=== PATIENT | female | born 1945 | race Caucasian/White ===

== ENCOUNTER 2016-10-12 11:39 | Inpatient (IN) | payer MEDICARE ==
[~2016-10-12] VITALS: Ht 162.6 cm; Wt 70.5 kg
[2016-10-12] VITALS (32 sets, daily range): BP systolic 67–192; BP diastolic 46–113; PULSE 91–137; RESP 15–22; TEMP 97.3–98.4; O2SAT 97–100
[~2016-10-12 11:39] MED LIST: ALBU8I INH; ASPI81TA82 PO; ATOR40TA PO; CEPH500C3 PO; CILO100T PO; CYMB30CA PO; GABA300C3 PO; GLIM4 PO; HYDR-2768 PO; LANSO15 PO; LORTA5 PO; OXYB5TAB PO; PLAV75TA PO; TRAD5TAB PO; ULTR50TA PO
[2016-10-12] MEDS ORDERED: PROPOFOL 1000 MG/100 ML INJ 100 ML ONE (11:50)
--- NOTE | 2016-10-12 11:56 | PD ---
HPI Chief Complaint: Respiratory Distress Time Seen by Provider: 11:47 Travel History International Travel<30 days: No Contact w/Intl Traveler<30days: No Traveled to known affect area: No History of Present Illness HPI The patient is a 71-year-old female who presents to the emergency department via EMS for respiratory arrest. EMS states the patient was at the [facility] and [place], [place], when she developed shortness of breath. According to EMS the patient became obviously short of breath in the pool, while performing water aerobics. The patient was pulled from the pool, by the [employer], and there was no evidence of drowning according to EMS report. When EMS arrived the patient was agonal, not responding to questioning, and intubated in the field with a 7.0 endotracheal tube. The patient was noted to have copious secretions during the intubation and required significant suctioning according to EMS. The patient did receive etomidate 20 mg and Ativan in the field for intubation. They also administered Lasix 80 mg intravenously prior to arrival. No further information is obtainable. PFSH Past Medical History Cancer: No Cardiovascular Problems: No Chest Pain: No COPD: Yes Diabetes: Yes Gastrointestinal Disorders: No Glaucoma: No Genitourinary: No Hepatitis: No Hiatal Hernia: No Hypertension: Yes Immune Disorder: No Musculoskeletal: No Neurologic: No Reproductive: No Respiratory: Yes (COPD) Integumentary: Yes (ULCERS R FOOT) Thyroid Disease: No Past Surgical History Cardiac Surgery: No Endocrine Surgery: No Genitourinary Surgery: No Gynecologic Surgery: Yes (3 C SECTIONS) Thoracic Surgery: No Social History Alcohol Use: No Tobacco Use: No Allergies-Medications (Allergen,Severity, Reaction): Coded Allergies: Morphine (Verified Allergy, Severe, 12/30/15) SSRI-Serotonin Reuptake Inhib (Verified Allergy, Severe, 12/30/15) Reported Meds & Prescriptions Reported Meds & Active Scripts Active Reported Tobramycin-Dexamethasone Opth Drops 0.3-0.1 % Susp 1 Drop EACH EYE TID Bactrim DS (Sulfamethoxazole-Trimethoprim) 800-160 Mg Tab 1 Tab PO DAILY Toviaz ER (Fesoterodine Fumarate) 8 Mg Jen 8 Mg PO DAILY Tradjenta (Linagliptin) 5 Mg Tab 5 Mg PO DAILY Potassium Chloride ER (Potassium Chloride) 10 Meq Cap 10 Meq PO DAILY PRN Ditropan (Oxybutynin Chloride) 5 Mg Tab 5 Mg PO DAILY Metformin (Metformin HCl) 500 Mg Tab 500 Mg PO BID With meals Lansoprazole 30 Mg Capdr 30 Mg PO BID Glimepiride 4 Mg Tab 4 Mg PO BIDAC Gabapentin 300 Mg Cap 300 Mg PO BID Lasix (Furosemide) 20 Mg Tab 20 Mg PO DAILY PRN Flonase Allergy Relief Nasal [place] (Fluticasone Nasal [place]) 50 Mcg/Act [place] 1- 2 [place] EACH NARE BID Lexapro (Escitalopram Oxalate) 5 Mg Tab 5 Mg PO DAILY Plavix (Clopidogrel Bisulfate) 75 Mg Tab 75 Mg PO DAILY Atorvastatin (Atorvastatin Calcium) 40 Mg Tab 40 Mg PO HS Aspirin Adult Low Strength (Aspirin) 81 Mg Tabdr 81 Mg PO DAILY Abilify (Aripiprazole) 2 Mg Tab 2 Mg PO DAILY Review of Systems ROS Limitations: Intubated Physical Exam Exam Limitations: Clinical Condition Narrative GENERAL: 71-year-old female who appears her stated age and is intubated. Patient is breathing above the ventilator, grimaces, but is not moving any medications. SKIN: Cool to the touch. HEAD: Atraumatic. Normocephalic. EYES: Pupils equal and round. Pupils are 2 mm bilateral and reactive. ENT: Endotracheal tube in place. NECK: Trachea midline. No JVD. CARDIOVASCULAR: Regular, tachycardic with a heart rate of 135. RESPIRATORY: Intubated, ventilated via ventilator, breathing above the ventilator. GASTROINTESTINAL: Abdomen soft, well-healed scar inferior to the umbilicus in the midline. MUSCULOSKELETAL: Cool to the touch. Left lower extremity slightly shorter than the right, but able to passively flex the hip and knee on both sides. Positive bilateral lower extremity edema from the knees inferiorly are with chronic venous stasis changes. Mild deformity to the feet bilaterally. NEUROLOGICAL: Intubated, grimacing, but does not spontaneously open eyes. PSYCHIATRIC: Unable to obtain. Data Data Last Documented VS Vital Signs Date Time Temp Pulse Resp B/P Pulse Ox O2 Delivery O2 Flow Rate FiO2 10/12/16 13:30 109 20 92/53 97 Auto-Vent 100 10/12/16 11:41 98.4 10/12/16 11:41 15 Orders Complete Blood Count With Diff (10/12/16 11:47) Comprehensive Metabolic Panel (10/12/16 11:47) B-Type Natriuretic Peptide (10/12/16 11:47) Act Partial Throm Time (Ptt) (10/12/16 11:47) Prothrombin Time / Inr (Pt) (10/12/16 11:47) Magnesium (Mg) (10/12/16 11:47) Ckmb (Isoenzyme) Profile (10/12/16 11:47) Troponin I (10/12/16 11:47) Arterial Blood Gas (Abg) (10/12/16 11:47) Blood Culture (10/12/16 11:47) Iv Access Insert/Monitor (10/12/16 11:47) Electrocardiogram (10/12/16 11:47) Ecg Monitoring (10/12/16 11:47) Oximetry (10/12/16 11:47) Oxygen Administration (10/12/16 11:47) Chest, Single Ap (10/12/16 11:47) Ct Pulmonary Angiogram (10/12/16 11:47) Sodium Chloride 0.9% Flush (Ns Flush) (10/12/16 12:00) Ct Brain W/O Iv Contrast(Rout) (10/12/16 ) Propofol 1000 Mg/100 Ml Inj (Diprivan 10 (10/12/16 12:00) ^ Infusion (10/12/16 11:50) RASS (10/12/16 11:50) Neurological Rass Scale TEODORA.Q2H (10/12/16 11:50) Propofol 1000 Mg/100 Ml Inj (Diprivan 10 (10/12/16 11:50) Urinary Catheter Insert/Apply (10/12/16 11:50) Lactic Acid (10/12/16 12:05) Sodium Chlor 0.9% 1000 Ml Inj (Ns 1000 M (10/12/16 12:30) Sodium Chlor 0.9% 1000 Ml Inj (Ns 1000 M (10/12/16 12:30) Cefepime Inj (Maxipime Inj) (10/12/16 12:30) Azithromycin Inj (Zithromax Inj) (10/12/16 12:30) Midazolam Inj (Versed Inj) (10/12/16 13:00) Midazolam Inj (Versed Inj) (10/12/16 12:53) CKMB (10/12/16 11:55) CKMB% (10/12/16 11:55) Midazolam Inj (Versed Inj) (10/12/16 13:30) Neurological Rass Scale Q30MX2,Q2HX4,Q4H (10/12/16 13:26) Neurological Rass Scale Q30MX2,Q2HX4,Q4H (10/12/16 13:26) Fentanyl Drip (Fentanyl Drip) (10/12/16 13:30) Admit Order (Ed Use Only) (10/12/16 13:44) Midazolam Inj (Versed Inj) (10/12/16 13:45) Labs Laboratory Tests Test 10/12/16 10/12/16 11:55 12:00 White Blood Count 15.7 TH/MM3 Red Blood Count 5.18 MIL/MM3 Hemoglobin 14.2 GM/DL Hematocrit 45.5 % Mean Corpuscular Volume 88.0 FL Mean Corpuscular Hemoglobin 27.5 PG Mean Corpuscular Hemoglobin 31.3 % Concent Red Cell Distribution Width 15.3 % Platelet Count 439 TH/MM3 Mean Platelet Volume 8.9 FL Neutrophils (%) (Auto) 53.8 % Lymphocytes (%) (Auto) 38.6 % Monocytes (%) (Auto) 6.1 % Eosinophils (%) (Auto) 1.2 % Basophils (%) (Auto) 0.3 % Neutrophils # (Auto) 8.4 TH/MM3 Lymphocytes # (Auto) 6.0 TH/MM3 Monocytes # (Auto) 1.0 TH/MM3 Eosinophils # (Auto) 0.2 TH/MM3 Basophils # (Auto) 0.0 TH/MM3 CBC Comment AUTO DIFF Differential Total Cells 100 Counted Neutrophils % (Manual) 50 % Band Neutrophils % 1 % Lymphocytes % 42 % Monocytes % 5 % Eosinophils % 1 % Neutrophils # (Manual) 8.2 TH/MM3 Myelocytes 1 % Differential Comment FINAL DIFF MANUAL Platelet Estimate HIGH Platelet Morphology Comment NORMAL Prothrombin Time 10.5 SEC Prothromb Time International 1.0 RATIO Ratio Activated Partial 23.7 SEC Thromboplast Time Sodium Level 139 MEQ/L Potassium Level 2.9 MEQ/L Chloride Level 104 MEQ/L Carbon Dioxide Level 20.6 MEQ/L Anion Gap 14 MEQ/L Blood Urea Nitrogen 18 MG/DL Creatinine 0.96 MG/DL Estimat Glomerular Filtration 57 ML/MIN Rate Random Glucose 347 MG/DL Calcium Level 6.8 MG/DL Protein Corrected Calcium 7.3 MG/DL Magnesium Level 1.4 MG/DL Total Bilirubin 0.2 MG/DL Aspartate Amino Transf 18 U/L (AST/SGOT) Alanine Aminotransferase 19 U/L (ALT/SGPT) Alkaline Phosphatase 133 U/L Total Creatine Kinase 139 U/L Creatine Kinase MB 3.5 NG/ML Troponin I 0.03 NG/ML B-Type Natriuretic Peptide 81 PG/ML Total Protein 6.1 GM/DL Albumin 2.6 GM/DL Lactic Acid Level 8.1 mmol/L MDM Medical Decision Making Medical Screen Exam Complete: Yes Emergency Medical Condition: Yes Medical Record Reviewed: Yes Interpretation(s) EKG reveals sinus tachycardia with a heart rate of 136. Short TX interval of 117 ms. Nonspecific T-wave changes, inverted T waves noted. Last Impressions Chest X-Ray 10/12/16 1147 Signed Impressions: Service Date/Time: Wednesday, October 12, 2016 12:12 - CONCLUSION: Markedly abnormal chest with moderate airspace disease on the right. Hemorrhage vs aspiration. Nasogastric tube and ET tube in good position. Gregory Nava MD FACR Head CT 10/12/16 0000 Signed Impressions: Service Date/Time: Wednesday, October 12, 2016 13:44 - CONCLUSION: Negative for an acute process Gregory Nava MD FACR CT pulmonary angiogram reveals patchy airspace disease in both lungs much worse on the right than the left, suspicious for an inflammatory process. There is no evidence for central pulmonary emboli. Laboratory Tests Test 10/12/16 10/12/16 11:55 12:00 White Blood Count 15.7 TH/MM3 Red Blood Count 5.18 MIL/MM3 Hemoglobin 14.2 GM/DL Hematocrit 45.5 % Mean Corpuscular Volume 88.0 FL Mean Corpuscular Hemoglobin 27.5 PG Mean Corpuscular Hemoglobin 31.3 % Concent Red Cell Distribution Width 15.3 % Platelet Count 439 TH/MM3 Mean Platelet Volume 8.9 FL Neutrophils (%) (Auto) 53.8 % Lymphocytes (%) (Auto) 38.6 % Monocytes (%) (Auto) 6.1 % Eosinophils (%) (Auto) 1.2 % Basophils (%) (Auto) 0.3 % Neutrophils # (Auto) 8.4 TH/MM3 Lymphocytes # (Auto) 6.0 TH/MM3 Monocytes # (Auto) 1.0 TH/MM3 Eosinophils # (Auto) 0.2 TH/MM3 Basophils # (Auto) 0.0 TH/MM3 CBC Comment AUTO DIFF Differential Total Cells 100 Counted Neutrophils % (Manual) 50 % Band Neutrophils % 1 % Lymphocytes % 42 % Monocytes % 5 % Eosinophils % 1 % Neutrophils # (Manual) 8.2 TH/MM3 Myelocytes 1 % Differential Comment FINAL DIFF MANUAL Platelet Estimate HIGH Platelet Morphology Comment NORMAL Prothrombin Time 10.5 SEC Prothromb Time International 1.0 RATIO Ratio Activated Partial 23.7 SEC Thromboplast Time Sodium Level 139 MEQ/L Potassium Level 2.9 MEQ/L Chloride Level 104 MEQ/L Carbon Dioxide Level 20.6 MEQ/L Anion Gap 14 MEQ/L Blood Urea Nitrogen 18 MG/DL Creatinine 0.96 MG/DL Estimat Glomerular Filtration 57 ML/MIN Rate Random Glucose 347 MG/DL Calcium Level 6.8 MG/DL Protein Corrected Calcium 7.3 MG/DL Magnesium Level 1.4 MG/DL Total Bilirubin 0.2 MG/DL Aspartate Amino Transf 18 U/L (AST/SGOT) Alanine Aminotransferase 19 U/L (ALT/SGPT) Alkaline Phosphatase 133 U/L Total Creatine Kinase 139 U/L Creatine Kinase MB 3.5 NG/ML Troponin I 0.03 NG/ML B-Type Natriuretic Peptide 81 PG/ML Total Protein 6.1 GM/DL Albumin 2.6 GM/DL Lactic Acid Level 8.1 mmol/L Differential Diagnosis Differential diagnosis includes respiratory arrest, congestive heart failure, COPD exacerbation, reactive airway disease, pulmonary embolism, pleural effusion , pericardial effusion, STEMI. Narrative Course IV was established, labs are drawn and sent, and the patient was placed on cardiac telemetry monitoring and continuous pulse oximetry monitoring. Chest x- ray was obtained. CT pulmonary angiogram and CT the brain were obtained. The patient received Lasix, etomidate, and Ativan by EMS prior to arrival. The patient's initial blood glucose was greater than 400, according to EMS, therefore, bedside Accu check was obtained. Mendoza catheter was placed. The patient was placed on propofol for sedation. The patient's blood pressure did fall to systolic 80 after propofol was started, therefore, propofol was decreased and the patient was administered 1 L normal saline intravenously as a bolus. The patient was given a total of 2 L, however, continued to be hypotensive after an initial return to normal blood pressure, she once again had hypotension. CT pulmonary angiogram revealed no PE, however, had patchy airspace disease worse on the right than left. The patient was administered cefepime and Zithromax. CT the brain was negative. I discussed the patient the on-call wood cabinetmaker who agrees with admission. A central line and right radial arterial line were placed because the patient continued to have hypotension. The patient was placed on vasopressors per the wood cabinetmaker recommendations. The patient will be admitted to the intensive care unit. Critical Care Narrative Aggregate critical care time was 45 minutes. Time to perform other separately billable procedures was not included in the critical care time. My time did not include minutes spent treating any other patients simultaneously or on activities that did not directly contribute to the patient's treatment. The services I provided to this patient were to treat and/or prevent clinically significant deterioration that could result in: Anoxia, hypoxia, arrhythmia, aspiration, sepsis, . I provided critical care services requiring my management, as noted below: Chart data review, documentation time, medication orders and management, vital sign assessments/reviewing monitor data, ordering and reviewing lab tests, ordering and interpreting/reviewing x-rays and diagnostic studies, care of the patient and discussion of the patient with the admitting physicians. Procedures Procedure Narrative CENTRAL VENOUS LINE: The site was prepped with Betadine and sterilely draped. It was infiltrated with 1% lidocaine plain. The deep vein was cannulated using normal Seldinger technique. A triple lumen central line was placed in the right internal jugular site and secured with simple interrupted suture. The site was sterilely dressed. The patient tolerated the procedure well. An arterial line was placed in the right radial artery under ultrasound guidance using a linear probe via Seldinger technique. There was good pulsatile blood return in the arterial line foot easily. There was no obvious complications and the patient tolerated the procedure without difficulty. Sepsis Criteria SIRS Criteria (2 or more): Heart rate over 90, RR > 20 or PaCO2 < 32, WBC > 10497, < 4000 or > 10% bands Severe Sepsis (+one): Hypotension, Lactate >2 Septic Shock Criteria: Lactic acid >=4 Criteria Outcome: Meets septic shock criteria Physician Communication Physician Communication I discussed the patient with the wood cabinetmaker who agrees with admission. Diagnosis Primary Impression: Respiratory distress Additional Impressions: Pneumonia Qualified Code: J18.9 - Pneumonia of both lungs due to infectious organism, unspecified part of lung Hypoxia Sepsis Qualified Code: A41.9 - Sepsis, due to unspecified organism Admitting Information Admitting Physician Requests: Admit Condition: Critical Ramin Loza MD Oct 12, 2016 11:56
[2016-10-12] MEDS ORDERED: SODIUM CHLORIDE 0.9% FLUSH 5 ML FLUSH IVF PRN (12:00)
[2016-10-12] MEDS ORDERED: PROPOFOL 1000 MG/100 ML INJ 100 ML IV SCH (12:00)
[2016-10-12 12:27] LABS: AUTOMATED NEUTROPHIL # 8.4 TH/MM3 (1.8-7.7); BASOPHIL % 0.3 % (0.0-2.0); EOSINOPHIL # 0.2 TH/MM3 (0-0.4); EOSINOPHIL % 1.2 % (0.0-4.0); HEMATOCRIT 45.5 % (35.0-46.0); LYMPH % 38.6 % (9.0-44.0); MEAN CORPUSCULAR HEMOGLOBIN 27.5 PG (27.0-34.0); MEAN CORPUSCULAR HGB CONC 31.3 % (32.0-36.0); MONO % 6.1 % (0.0-8.0); NEUT % 53.8 % (16.0-70.0); PLATELET COUNT 439 TH/MM3 (150-450); RED BLOOD COUNT 5.18 MIL/MM3 (4.00-5.30); RED CELL DISTRIBUTION WIDTH 15.3 % (11.6-17.2); WHITE BLOOD COUNT 15.7 TH/MM3 (4.0-11.0)
[2016-10-12 12:29] LABS: HEMO FLAGS AUTO DIFF
[2016-10-12] MEDS ORDERED: SODIUM CHLOR 0.9% 1000 ML INJ 1,000 ML IV ONE ×3 (12:30→15:15)
[2016-10-12] MEDS ORDERED: AZITHROMYCIN INJ 500 MG in SODIUM CHLOR 0.9% 250 ML INJ 250 ML IV ONE (12:30)
[2016-10-12] MEDS ORDERED: CEFEPIME INJ 2,000 MG in SODIUM CHLORIDE 0.9% INJ 100 ML IV ONE (12:30)
[2016-10-12] MEDS ORDERED: GLIM4TAB PO (12:33)
[2016-10-12] MEDS ORDERED: ATOR40TA16 PO (12:33)
[2016-10-12] MEDS ORDERED: PLAV75TA29 PO (12:33)
[2016-10-12] MEDS ORDERED: ASPI1TAB91 PO (12:33)
[2016-10-12] MEDS ORDERED: OXYB5TAB10 PO (12:33)
[2016-10-12] MEDS ORDERED: METF500T PO (12:33)
[2016-10-12] MEDS ORDERED: LEXA5TAB PO (12:33)
[2016-10-12] MEDS ORDERED: ABIL2TAB2 PO (12:33)
[2016-10-12] MEDS ORDERED: LANS30CA PO (12:33)
[2016-10-12] MEDS ORDERED: FLUT1SPR5 EACH NARE (12:33)
[2016-10-12] MEDS ORDERED: GABA300C5 PO (12:33)
[2016-10-12] MEDS ORDERED: FURO1TAB62 PO (12:33)
[2016-10-12] MEDS ORDERED: TOBRSUS9 EACH EYE (12:34)
[2016-10-12] MEDS ORDERED: TOVI8TAB PO (12:34)
[2016-10-12] MEDS ORDERED: POTA10CA PO (12:34)
[2016-10-12] MEDS ORDERED: TRAD5TAB PO (12:34)
[2016-10-12] MEDS ORDERED: BACT800T5 PO (12:34)
[2016-10-12 12:37] LABS: APTT (PATIENT) 23.7 SEC (24.3-30.1); PROTHROMBIN TIME - PATIENT 10.5 SEC (9.8-11.6)
[2016-10-12] MEDS ORDERED: MIDAZOLAM HCL 5 MG/ML VIAL (1 ML) ONE ×2 (12:53→14:31)
[2016-10-12 12:58] LABS: ALKALINE PHOSPHATASE 133 U/L (45-117); ALT (GPT) 19 U/L (10-53); ANION GAP 14 MEQ/L (5-15); BICARBONATE 20.6 MEQ/L (21.0-32.0); BLOOD UREA NITROGEN 18 MG/DL (7-18); CHLORIDE 104 MEQ/L (98-107); CREATINE KINASE 139 U/L (26-192); GLOMERULAR FILTRATION RATE 57 ML/MIN (>89); SODIUM (NA) 139 MEQ/L (136-145); TOTAL BILIRUBIN ADULT 0.2 MG/DL (0.2-1.0)
[2016-10-12 12:59] LABS: AST (GOT) 18 U/L (15-37); MAGNESIUM 1.4 MG/DL (1.5-2.5)
[2016-10-12] MEDS ORDERED: MIDAZOLAM HCL 5 MG/5 ML VIAL IV PUSH ONE ×2 (13:00→14:30)
[2016-10-12 13:01] LABS: BANDS 1 % (0-6); EOSINOPHILS 1 % (0-4); MYELOCYTES 1 % (0-0); NEUTROPHIL # MANUAL DIFF 8.2 TH/MM3 (1.8-7.7); POLYS (SEG NEUTROPHILS) 50 % (16-70); WBC DIFF SAMPLE 100
[2016-10-12 13:02] LABS: CALCIUM-PROTEIN CORRECTED 7.3 MG/DL (8.5-10.1); PLATELET ESTIMATE SMEAR HIGH (NORMAL); PLATELET MORPHOLOGY NORMAL (NORMAL); SCAN/DIFF FINAL DIFF MANUAL
[2016-10-12 13:03] LABS: POTASSIUM 2.9 MEQ/L (3.5-5.1)
[2016-10-12 13:17] LABS: CKMB 3.5 NG/ML (0.5-3.6)
[2016-10-12] MEDS ORDERED: MIDAZOLAM 100 MG/ML INJ 100 ML IV SCH ×2 (13:30→15:00)
[2016-10-12] MEDS ORDERED: MIDAZOLAM 100 MG/ML INJ 100 ML ONE (13:45)
--- NOTE | 2016-10-12 13:58 | RADRPT ---
EXAM DATE/TIME: 10/12/2016 12:12 [facility] COMPARISON: No previous studies available for comparison. INDICATIONS : Shortness of breath and breathing ceased during exercise. MEDICAL HISTORY : Unobtainable. SURGICAL HISTORY : Unobtainable. ENCOUNTER: Initial ACUITY: 1 day PAIN SCORE: Non-responsive. LOCATION: Bilateral chest FINDINGS: ET tube and nasogastric tube are in good position. Left lung is clear. Moderate airspace disease is present on the right. Pulmonary vascularity is normal. CONCLUSION: Markedly abnormal chest with moderate airspace disease on the right. Hemorrhage vs aspiration. Nasogastric tube and ET tube in good position. Gregory Nava MD FACR on October 12, 2016 at 12:44 Board Certified Radiologist. This report was verified electronically.
[2016-10-12] MEDS ORDERED: IOHEXOL 350 MG/ML 10 ML VIAL (for RAD DIAG) IV ONE (14:03)
--- NOTE | 2016-10-12 14:08 | RADRPT ---
EXAM DATE/TIME: 10/12/2016 13:44 [facility] COMPARISON: No previous studies available for comparison. INDICATIONS : Tachycardia with hypoxia; status-post intubation. RADIATION DOSE: 56.35 CTDIvol (mGy) MEDICAL HISTORY : Hypertension. Chronic obstructive pulmonary disease. Diabetes mellitus type 2. SURGICAL HISTORY : None. ENCOUNTER: Initial ACUITY: 1 day PAIN SCALE: Non-responsive LOCATION: cranial TECHNIQUE: Multiple contiguous axial images were obtained of the head. Using automated exposure control and adjustment of the mA and/or kV according to patient size, radiation dose was kept as low as reasonably achievable to obtain optimal diagnostic quality images. FINDINGS: CEREBRUM: The ventricles are normal for age. No evidence of midline shift, mass lesion, hemorrha ge or acute infarction. No extra-axial fluid collections are seen. POSTERIOR FOSSA: The cerebellum and brainstem are intact. The 4th ventricle is midline. The cer ebellopontine angle is unremarkable. EXTRACRANIAL: The visualized portion of the orbits is intact. SKULL: The calvaria is intact. No evidence of skull fracture. CONCLUSION: Negative for an acute process Gregory Nava MD FACR on October 12, 2016 at 14:04 Board Certified Radiologist. This report was verified electronically.
[2016-10-12] MEDS ORDERED: POTASSIUM CL 40 MEQ/30 ML LIQ UDC PO/TUBE PRN ×2 (14:15)
[2016-10-12] MEDS ORDERED: MAGNESIUM SULFATE INJ 4 GM in SODIUM CHLORIDE 0.9% INJ 92 ML IV PRN (14:15)
[2016-10-12] MEDS ORDERED: MISCELLANEOUS NURSING INFORMATION XX SCH (14:15)
[2016-10-12] MEDS ORDERED: MAGNESIUM OXIDE 400 MG TAB PO PRN (14:15)
[2016-10-12] MEDS ORDERED: POTASSIUM CHLOR 40 MEQ PREMIX 100 ML IV PRN (14:15)
[2016-10-12] MEDS ORDERED: MAGNESIUM SULFATE INJ 2 GM in SODIUM CHLORIDE 0.9% INJ 96 ML IV PRN (14:15)
[2016-10-12] MEDS ORDERED: SODIUM CHLORIDE 0.9% FLUSH 5 ML FLUSH IV FLUSH PRN (14:15)
[2016-10-12] MEDS ORDERED: SODIUM PHOSPHATE INJ 30 MMOL in SODIUM CHLOR 0.9% 250 ML INJ 240 ML IV PRN (14:15)
[2016-10-12] MEDS ORDERED: POTASSIUM PHOSPHATE MONOBASIC 500 MG TAB PO/TUBE PRN (14:15)
[2016-10-12] MEDS ORDERED: POTASSIUM PHOSPHATE INJ 30 MMOL in SODIUM CHLOR 0.9% 250 ML INJ 250 ML IV PRN (14:15)
[2016-10-12] MEDS ORDERED: POTASSIUM PHOSPHATE MONOBASIC 500 MG TAB PO PRN (14:15)
[2016-10-12] MEDS ORDERED: CHLORHEXIDINE GLUCONATE 2 % 1 PACK (2 CLOTHS) TOP PRN (14:15)
[2016-10-12] MEDS ORDERED: PILL SPLITTER OTHER PRN (14:15)
[2016-10-12] MEDS ORDERED: GLUCAGON 1 MG/ML VIAL OTHER PRN (14:15)
[2016-10-12] MEDS ORDERED: POTASSIUM CHLOR 20 MEQ PREMIX 100 ML IV PRN ×2 (14:15)
[2016-10-12] MEDS ORDERED: DEXTROSE 50% IN WATER 50 ML VIAL(D50) IV PUSH PRN (14:15)
--- NOTE | 2016-10-12 14:23 | HHI.HP ---
[facility] Service Critical Care Medicine Primary Care Physician Guru Irving, PhD, MD Admission Diagnosis respiratory distress, hypoxia, pulmonary edema, lactic acidosis Diagnosis: (1) Acute hypoxemic respiratory failure Diagnosis: Principal (2) PAD (peripheral artery disease) Diagnosis: Principal (3) DM (diabetes mellitus) Diagnosis: Principal (4) Obesity (BMI 30.0-34.9) Diagnosis: Principal (5) Hypomagnesemia Diagnosis: Principal (6) Hypopotassemia Diagnosis: Principal (7) Leukocytosis Diagnosis: Principal (8) Hyperglycemia Diagnosis: Principal (9) Lactic acidosis Diagnosis: Principal (10) Depression Diagnosis: Principal (11) Dyslipidemia Diagnosis: Principal (12) Chronic combined systolic and diastolic heart failure Diagnosis: Principal (13) Gastroesophageal reflux disease Diagnosis: Principal (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 No drowning Travel History International Travel<30 Days: No Contact w/Intl Traveler <30 Da: No Traveled to Known Affected Are: No Sepsis Criteria SIRS Criteria (2 or more): Heart rate over 90, WBC > 17246, < 4000 or > 10% bands Sepsis Criteria (SIRS+source): Infect source susp/known Severe Sepsis (+one): Lactate >2 Septic Shock Criteria: Lactic acid >=4 Criteria Outcome: Meets septic shock criteria History of Present Illness 71-year-old female. Date of admission . Past medical history includes postpolio syndrome, chronic systolic and diastolic heart failure ejection fraction 35%, depression, gastroesophageal reflux disease, PAD , diabetes, hiatal hernia and low back pain. Today, she presents to the emergency department via EMS for acute hypoxemic respiratory arrest. EMS states the patient was at the [facility] and [place], [place], when she developed shortness of breath in the swimming pool performing water aerobics. The patient was pulled from the pool, by the [employer], and there was no evidence of drowning according to EMS report. She is noted to have agonal breathing, not responding to questioning, and intubated in the field with a 7.0 endotracheal tube. The patient was noted to have copious secretions during the intubation and required significant suctioning according to EMS. The patient did receive etomidate 20 mg and Ativan unknown amount in the field for intubation. They also administered Lasix 80 mg intravenously prior to arrival. No further information is obtainable. She is a leukocytosis of 15,000. POTASSIUM 2.9. MAGNESIUM 1.4. LACTIC ACID 8.1. Chest x-ray revealed right-sided infiltrate versus pleural effusion. CT of the chest revealed no pulmonary mucosa but small right pleural effusion in inflammatory type changes. She was treated with 1 dose of cefepime and azithromycin. Patient became hypotensive the ED while on propofol/versus/ phenyl. Central line and arterial line currently been placed. Arousable on the ventilator. 8. Review of Systems ROS Limitations: Intubated Past Family Social History Allergies: Coded Allergies: Morphine (Verified Allergy, Severe, 12/30/15) SSRI-Serotonin Reuptake Inhib (Verified Allergy, Severe, 12/30/15) Reported Medications Active Keflex (Cephalexin Monohydrate) 500 Mg Cap 500 Mg PO Q6 7 Days Reported Tradjenta (Linagliptin) 5 Mg Tab 5 Mg PO DAILY Amaryl 4 Mg Tab (Glimepiride) 4 Mg Tab 4 Mg PO BIDAC Take 30 minutes prior to a meal Cilostazol 100 Mg Tab 100 Mg PO BIDAC Oxybutynin Chloride 5 Mg Tab 5 Mg PO DAILY Atorvastatin 40 mg (Atorvastatin Calcium) 40 Mg Tab 40 Mg PO DAILY Hctz (Hydrochlorothiazide) 25 Mg Tab 25 Mg PO DAILY Gabapentin 300 Mg Cap 300 Mg PO BID Prevacid 15 Mg Solutab (Lansoprazole) 15 Mg Tab 30 Mg PO BID Ultram (Tramadol HCl) 50 Mg Tab 50 Mg PO TID PRN [place] 5/325 (Hydrocodone/Acetaminophen 5/325) 5 mg/325 mg Tab 1 Tab PO Q8HR PRN Ventolin Hfa (Albuterol Sulfate) 8 Gm Aero 2 Puff INH Q4 PRN * SHAKE WELL BEFORE USE * Plavix (Clopidogrel Bisulfate) 75 Mg Tab 75 Mg PO DAILY Cymbalta (Duloxetine HCl) 30 Mg Cap 60 Mg PO DAILY Aspir-81 (Aspirin) 81 Mg Tab 81 Mg PO DAILY Active Ordered Medications Reviewed in EMR Family History Mother/80 of heart disease. Father/70 - alcoholism/heart disease Social History 2 pack per day tobacco 50 years. Quit 2010. No alcohol or IV drug use. Physical Exam Vital Signs Vital Signs Date Time Temp Pulse Resp B/P Pulse Ox O2 Delivery O2 Flow Rate FiO2 10/12/16 14:15 99 100 10/12/16 14:14 98 100 10/12/16 13:10 111 20 90/57 97 Auto-Vent 100 10/12/16 13:04 111 20 88/59 97 Auto-Vent 100 10/12/16 12:55 118 20 97/63 97 Auto-Vent 100 10/12/16 12:45 120 20 99/58 97 Auto-Vent 100 10/12/16 12:30 116 20 76/46 97 Auto-Vent 100 10/12/16 12:25 118 20 68/51 97 Auto-Vent 100 10/12/16 12:22 99 100 10/12/16 12:15 126 20 82/55 97 Auto-Vent 100 10/12/16 12:10 128 20 89/52 97 Auto-Vent 100 10/12/16 11:41 98.4 137 22 119/113 98 10/12/16 11:41 98 Auto-Vent 100 10/12/16 11:41 137 22 98 Auto-Vent 15 Physical Exam GENERAL: 71-year-old female, critically ill currently resting in bed NAD SKIN: Warm and dry. HEAD: Atraumatic. Normocephalic. EYES: Pupils equal and round about 3 mm bilaterally and reactive. No scleral icterus. No injection or drainage. ENT: No nasal bleeding or discharge. Mucous membranes pink and moist. NECK: Trachea midline. No JVD. CARDIOVASCULAR: Regular rate and rhythm. S1, S2. No S4. No S3. Faint 2/6 murmur at the apex. RESPIRATORY: No accessory muscle use. Clear to auscultation. Breath sounds equal bilaterally. GASTROINTESTINAL: Abdomen soft, non-tender, obese. Hypoactive bowel sounds MUSCULOSKELETAL: Extremities right and left lower extremity inward. Postpolio type changes. 1+ pitting edema. NEUROLOGICAL: Failure to progress intact. Moves all 4 extremities potassium. Positive gag.. Laboratory Laboratory Tests Test 10/12/16 10/12/16 11:55 12:00 White Blood Count 15.7 Red Blood Count 5.18 Hemoglobin 14.2 Hematocrit 45.5 Mean Corpuscular Volume 88.0 Mean Corpuscular Hemoglobin 27.5 Mean Corpuscular Hemoglobin 31.3 Concent Red Cell Distribution Width 15.3 Platelet Count 439 Mean Platelet Volume 8.9 Neutrophils (%) (Auto) 53.8 Lymphocytes (%) (Auto) 38.6 Monocytes (%) (Auto) 6.1 Eosinophils (%) (Auto) 1.2 Basophils (%) (Auto) 0.3 Neutrophils # (Auto) 8.4 Lymphocytes # (Auto) 6.0 Monocytes # (Auto) 1.0 Eosinophils # (Auto) 0.2 Basophils # (Auto) 0.0 CBC Comment AUTO DIFF Differential Total Cells 100 Counted Neutrophils % (Manual) 50 Band Neutrophils % 1 Lymphocytes % 42 Monocytes % 5 Eosinophils % 1 Neutrophils # (Manual) 8.2 Myelocytes 1 Differential Comment FINAL DIFF MANUAL Platelet Estimate HIGH Platelet Morphology Comment NORMAL Prothrombin Time 10.5 Prothromb Time International 1.0 Ratio Activated Partial 23.7 Thromboplast Time Sodium Level 139 Potassium Level 2.9 Chloride Level 104 Carbon Dioxide Level 20.6 Anion Gap 14 Blood Urea Nitrogen 18 Creatinine 0.96 Estimat Glomerular Filtration 57 Rate Random Glucose 347 Calcium Level 6.8 Protein Corrected Calcium 7.3 Magnesium Level 1.4 Total Bilirubin 0.2 Aspartate Amino Transf 18 (AST/SGOT) Alanine Aminotransferase 19 (ALT/SGPT) Alkaline Phosphatase 133 Total Creatine Kinase 139 Creatine Kinase MB 3.5 Troponin I 0.03 B-Type Natriuretic Peptide 81 Total Protein 6.1 Albumin 2.6 Lactic Acid Level 8.1 Date/Time Procedure Status Source Growth 10/12/16 12:00 Aerobic Blood Culture Received Blood Peripheral Pending 10/12/16 12:00 Anaerobic Blood Culture Received Blood Peripheral Pending Result Diagram: 10/12/16 1155 10/12/16 1155 Imaging Last Impressions Chest X-Ray 10/12/16 1147 Signed Impressions: Service Date/Time: Wednesday, October 12, 2016 12:12 - CONCLUSION: Markedly abnormal chest with moderate airspace disease on the right. Hemorrhage vs aspiration. Nasogastric tube and ET tube in good position. Gregory Nava MD FACR Head CT 10/12/16 0000 Signed Impressions: Service Date/Time: Wednesday, October 12, 2016 13:44 - CONCLUSION: Negative for an acute process Gregory Nava MD FACR Assessment and Plan Assessment and Plan Neuro/Psych: Depression Anxiety Peripheral neuropathy Post polio syndrome Rhinitis Patient is on Versed/fentanyl drips for sedation/analgesia while intubated Goal of RASS -2 Daily sedation vacation Resume Neurontin 300 mg by mouth twice a day/home medication for neuropathy Resume Lexapro to 5 mg by mouth daily for depression Resume Abilify 2 mg by mouth daily for anxiety Patient is on Flonase 1 inhalation twice a day [address] head 10/12 revealed no acute intracranial findings CV: Chronic systolic and diastolic heart failure PAD Dyslipidemia Lactic acidosis Initial EKG showed sinus tachycardia. Troponin 0.05. Serial troponins. Echo 07/22 revealed EF 35-40%. Akinesis apical myocardium. Stage I diastolic dysfunction. Left atrial enlargement. Resume atorvastatin 40 mg by mouth daily for dyslipidemia Resume aspirin 81 mg/Plavix 75 mg daily Serial lactates until clear. Status post 3 L of normal saline On when necessary Lasix at home Resp: Acute hypoxic respiratory failure likely secondary to kidney cord pneumonia Tobaccoism/prior [facility] 16/500/5/100 Ventilator bundle Bronchodilator therapy every 6 hours and as needed Spontaneous breathing trials when indicated 10/12 - CTA chest revealed no central pulmonary wasn't. Right-sided inflammatory process. Small pleural effusion. GI: Gastroesophageal reflux disease Hiatal hernia Start tube feedings with Glucerna 1.5 goal 55 cc an hour Patient is on Prevacid 30 mg by mouth twice a day at home. This is been changed Protonix 40 mg IV daily Colace/as needed Senokot for bowel regimen : Incontinence Patient is on Ditropan 5 mg by mouth daily at home. Resume when clinically indicated Mendoza Is in place for accurate I's and O's in a critically ill patient Check UA Endo: Diabetes mellitus Home medications metformin 500 twice a day, Amaryl 4 mg twice a day and Trajenta 5 mg daily currently on hold Sliding-scale insulin/moderate with Accu-Cheks every 6 hours to maintain euglycemia Renal: Heme: Leukocytosis Likely secondary to infection. Repeat check CBC in a.m. Monitor trends ID: Right-sided community-acquired pneumonia Pertinent cultures Blood cultures 2, sputum and urine all pending. Influenza pending. Received 1 dose of cefepime and Zithromax ED. Switch to vancomycin, Zosyn and Zithromax FEN: Hypopotassemia Hypo-magnesium Replace per ICU electrolyte protocol. Recheck MSK: Chronic low back pain Heel spur PT evaluate and treat Access - Peripheral IV. Central line if indicated Prophylaxis - GI - Protonix - DVT - SCD/heparin Critical Care: The total critical care time was 65 minutes. Time to perform other separately billable procedures was not included in the critical care time. Code Status Full code Discussed Condition With Dr. Loza. Her Zach. Care plan discussed and all questions answered. Problem Qualifiers (1) DM (diabetes mellitus): Qualified Code: E11.8 - Type 2 diabetes mellitus with complication, without long-term current use of insulin (2) Leukocytosis: Qualified Code: D72.829 - Leukocytosis, unspecified type (3) Depression: Qualified Code: F32.9 - Depression, unspecified depression type (4) Gastroesophageal reflux disease: Qualified Code: K21.9 - Gastroesophageal reflux disease, esophagitis presence not specified (5) Heel spur: Qualified Code: M77.31 - Heel spur, right (6) Low back pain: Qualified Code: M54.5 - Chronic bilateral low back pain without sciatica (7) Allergic rhinitis: Qualified Code: J30.9 - Allergic rhinitis, unspecified allergic rhinitis trigger, unspecified rhinitis seasonality (8) Peripheral neuropathy: Qualified Code: G62.9 - Peripheral polyneuropathy Quan Joseph MD Oct 12, 2016 14:23
[2016-10-12] MEDS ORDERED: TERBUTALINE INJ 1 MG/ML AMP SQ PRN (14:30)
[2016-10-12] MEDS ORDERED: PHENYLEPHRINE HCL 10 MG/ML VIAL ONE ×3 (14:37→14:40)
--- NOTE | 2016-10-12 14:41 | RADRPT ---
EXAM DATE/TIME: 10/12/2016 13:53 [facility] COMPARISON: No previous studies available for comparison. INDICATIONS: Tachycardia with hypoxia; status-post intubation. IV CONTRAST: 75 cc Omnipaque 350 (iohexol) IV RADIATION DOSE: 16.03 CTDIvol (mGy) MEDICAL HISTORY: Hypertension. Chronic obstructive pulmonary disease. Diabetes mellitus type 2. SURGICAL HISTORY: None. ENCOUNTER: Initial ACUITY: 1 day PAIN SCALE: Non-responsive LOCATION: Chest TECHNIQUE: Volumetric scanning of the chest was performed using a pulmonary embolism protocol MIP images were re constructed. Using automated exposure control and adjustment of the mA and/or kV according to patien t size, radiation dose was kept as low as reasonably achievable to obtain optimal diagnostic quality images. FINDINGS: Patchy air space disease is present in both lungs with consolidative changes much worse on the right than the left. There is no evidence for central pulmonary emboli. There is no pericardial effusion. There is no axillary or mediastinal adenopathy appreciated. Extensive vascular calcifications are noted. CONCLUSION: 1. Patchy air space disease is both lungs much worse on the right than the left suspicious for an in flammatory process. 2. There is no evidence for central pulmonary emboli. Gregory Nava MD FACR on October 12, 2016 at 14:16 Board Certified Radiologist. This report was verified electronically.
[2016-10-12] MEDS ORDERED: fentaNYL DRIP 250 ML IV SCH (15:00)
[2016-10-12] MEDS ORDERED: ONDANSETRON HCL 4 MG/2 ML VIAL IV PRN (15:00)
[2016-10-12] MEDS ORDERED: ACETAMINOPHEN 325 MG TAB PO PRN (15:00)
[2016-10-12] MEDS ORDERED: SENNOSIDES 8.6 MG TAB PO PRN (15:00)
[2016-10-12] MEDS: SODIUM CHLOR 0.9% 1000 ML INJ 1,000 ML IV SCH ×2 (15:13→17:47)
[2016-10-12] MEDS ORDERED: PHENYLEPHRINE INJ 40 MG in DEXTROSE 5% IN WATE 500 ML INJ 496 ML IV SCH ×2 (15:30)
[2016-10-12] MEDS ORDERED: fentaNYL DRIP 250 ML ONE (15:33)
[2016-10-12 15:45] LABS: BLOOD, URINE NEG (NEG); GLUCOSE,URINE 300 mg/dL (NEG); HYALINE CAST, URINE 1 /lpf (RARE); KETONE, URINE NEG (NEG); MUCUS URINE FEW /lpf (OCC); NITRITE,URINE NEG (NEG); PH, URINE 5.5 (5.0-8.5); SQUAMOUS EPITHELIAL CELL URINE <1 /hpf (0-5); URINE COLOR LIGHT-YELLOW (YELLW/STRAW)
[2016-10-12 15:46] LABS: COMMENT (UR) CATH-CULT NOT IND; CULTURE IF INDICATED CATH CULTURE NOT IND
[2016-10-12] MEDS: AZITHROMYCIN INJ 500 MG in SODIUM CHLOR 0.9% 250 ML INJ 250 ML IV SCH (17:27)
[2016-10-12] MEDS: PIPERACIL-TAZO 4.5 GM PREMIX 100 ML IV SCH ×2 (17:45→20:22)
[2016-10-12] MEDS: HEPARIN SODIUM - SQ 10,000 UNITS/ML VIAL SQ SCH (17:45)
[2016-10-12] MEDS: POTASSIUM CHLOR 40 MEQ PREMIX 100 ML IV PRN ×2 (18:04→21:24)
[2016-10-12] MEDS: RESP: ALBUTEROL 2.5 MG/IPRATROPIUM 0.5 MG NEB (SCH) INH ×3 (18:35→23:58)
[2016-10-12] MEDS: INSULIN NovoLIN REGULAR SUPPLEMENTAL SCALE SQ SCH (18:41)
[2016-10-12] MEDS: TOBRAMYCIN 0.3%/DEXAMETHASONE 0.1% OPHT SUSP 5 ML BTL EACH EYE SCH (18:41)
[2016-10-12] MEDS: ARTIFICIAL TEARS OPTH SOLN 15 ML BTL EACH EYE SCH (18:42)
[2016-10-12 19:15] LABS: BLOOD GAS BASE EXCESS -1.8 mmol/L (-2-2); BLOOD GAS CARBOXYHEMOGLOBIN 0.5 % (0-4); BLOOD GAS HCO3 24 mmol/L (22-26); BLOOD GAS METHEMOGLOBIN 2.5 % (0-2); BLOOD GAS O2 HGB SATURATION 95 % (90-100); BLOOD GAS OXYGEN CONTENT 18.8 Vol % (12.0-20.0); BLOOD GAS PCO2 51 mmHg (38-42); BLOOD GAS PO2 342 mmHg (61-120); BLOOD GAS TOTAL HGB 13.4 G/DL (12.0-16.0)
[2016-10-12 19:17] LABS: CRITICAL VALUE YES; FIO2 100 %; OXYGEN DEVICE VENTILATOR; TEMP CORR TO 98.6
[2016-10-12 19:18] LABS: DRAW SITE ALINE; STAT YES; VENT SETTINGS SEE COMMENTS
--- NOTE | 2016-10-12 20:01 | RADRPT ---
EXAM DATE/TIME: 10/12/2016 19:05 [facility] COMPARISON: CHEST SINGLE AP, October 12, 2016, 12:12. INDICATIONS : Central line placement MEDICAL HISTORY : None. SURGICAL HISTORY : None. ENCOUNTER: Initial ACUITY: 1 day PAIN SCORE: Non-responsive. LOCATION: Bilateral chest FINDINGS: Right IJ line is present with tip overlapping the expected region of the SVC. ET tube, and NG tube lee ve not changed. There is improvement in the aeration of the lungs with almost clearing of the right l deejay hazy opacity. No definite pneumothorax is seen for technique. CONCLUSION: Improvement in the aeration of the right lung. Rocio Yi MD on October 12, 2016 at 19:58 Board Certified Radiologist. This report was verified electronically.
[2016-10-12] MEDS: FLUTICASONE PROPIONATE 50 MCG/ACT 16 GM NASAL SPRAY EACH NARE SCH (20:20)
[2016-10-12] MEDS: SODIUM CHLORIDE 0.9% FLUSH 5 ML FLUSH IV FLUSH SCH (20:23)
[2016-10-12] MEDS: GABAPENTIN 300 MG CAP PO SCH (20:23)
[2016-10-12] MEDS: DOCUSATE SODIUM 100 MG CAP PO SCH (20:23)
[2016-10-12] MEDS: ATORVASTATIN 40 MG TAB PO SCH (20:24)
[2016-10-12] MEDS: RESP: BUDESONIDE 0.5 MG/2 ML NEB NEB SCH (20:46)
[2016-10-13] VITALS (18 sets, daily range): BP systolic 96–123; BP diastolic 41–66; PULSE 85–110; RESP 18–22; TEMP 98.1–100.4; O2SAT 95–100
--- NOTE | 2016-10-13 01:02 | RADRPT ---
EXAM DATE/TIME: 10/12/2016 22:15 [facility] COMPARISON: No previous studies available for comparison. INDICATIONS : Bilateral leg swelling. MEDICAL HISTORY : Chronic obstructive pulmonary disease. Hypertension. Diabetes. Hearing loss. Bilateral leg circulato ry problems. Ulcers on right foot. SURGICAL HISTORY : section. Leg surgery. ENCOUNTER: Initial ACUITY: 1 day PAIN SCORE: Non-responsive LOCATION: Bilateral legs. TECHNIQUE: Venous ultrasound of the left and right leg was performed from the inguinal ligament to the proximal calf. Real-time, color Doppler and spectral tracing, compression and augmentation techniques were us ed. FINDINGS: RIGHT LEG: There is normal compressibility of the deep venous system from the inguinal region to the proximal ca lf. No echogenic clot is seen in the lumen of the common femoral, femoral, popliteal, and posterior tibial veins. There is a normal response of the venous system to proximal and distal augmentation an d respiration. LEFT LEG: There is normal compressibility of the deep venous system from the inguinal region to the proximal ca lf. No echogenic clot is seen in the lumen of the common femoral, femoral, popliteal, and posterior tibial veins. There is a normal response of the venous system to proximal and distal augmentation an d respiration. CONCLUSION: No DVT is identified within either lower extremity. Anup De La Rosa MD on October 13, 2016 at 1:00 Board Certified Radiologist. This report was verified electronically.
[2016-10-13] MEDS: HEPARIN SODIUM - SQ 10,000 UNITS/ML VIAL SQ SCH ×4 (01:18→23:04)
[2016-10-13 03:20] LABS: APTT (PATIENT) 24.6 SEC (24.3-30.1); PROTHROMBIN TIME - PATIENT 10.7 SEC (9.8-11.6)
[2016-10-13] MEDS: RESP: ALBUTEROL 2.5 MG/IPRATROPIUM 0.5 MG NEB (SCH) INH ×5 (03:22→20:17)
[2016-10-13 03:25] LABS: BICARBONATE 24.7 MEQ/L (21.0-32.0); CALCIUM-PROTEIN CORRECTED 7.6 MG/DL (8.5-10.1); MAGNESIUM 2.1 MG/DL (1.5-2.5); POTASSIUM 4.3 MEQ/L (3.5-5.1); TOTAL BILIRUBIN ADULT 0.4 MG/DL (0.2-1.0)
[2016-10-13] MEDS: PIPERACIL-TAZO 4.5 GM PREMIX 100 ML IV SCH ×4 (03:50→21:05)
[2016-10-13] MEDS: CHLORHEXIDINE GLUCONATE 2 % 1 PACK (2 CLOTHS) TOP SCH (04:00)
[2016-10-13] MEDS: INSULIN NovoLIN REGULAR SUPPLEMENTAL SCALE SQ SCH ×4 (05:24→18:00)
[2016-10-13 05:48] LABS: BLOOD GAS CARBOXYHEMOGLOBIN 0.6 % (0-4); BLOOD GAS HCO3 23 mmol/L (22-26); BLOOD GAS METHEMOGLOBIN 2.4 % (0-2); BLOOD GAS O2 HGB SATURATION 95 % (90-100); BLOOD GAS OXYGEN CONTENT 16.9 Vol % (12.0-20.0); BLOOD GAS PCO2 33 mmHg (38-42); BLOOD GAS PO2 234 mmHg (61-120); BLOOD GAS TOTAL HGB 12.3 G/DL (12.0-16.0); CRITICAL VALUE NO; OXYGEN DEVICE VENTILATOR; TEMP CORR TO 98.6
[2016-10-13 05:49] LABS: DRAW SITE ART LINE; FIO2 80 %; STAT NO; VENT SETTINGS SEE COMMENTS
[2016-10-13] MEDS ORDERED: PHENYLEPHRINE HCL 10 MG/ML VIAL ONE (06:33)
[2016-10-13] MEDS: RESP: BUDESONIDE 0.5 MG/2 ML NEB NEB SCH ×2 (07:45→20:17)
[2016-10-13] MEDS: fentaNYL DRIP 250 ML IV SCH (08:59)
[2016-10-13] MEDS: SODIUM CHLORIDE 0.9% FLUSH 5 ML FLUSH IV FLUSH SCH ×2 (09:00→21:05)
[2016-10-13] MEDS: PANTOPRAZOLE SODIUM 40 MG VIAL IV SCH (09:50)
[2016-10-13] MEDS: ARIPiprazole 2 MG TAB PO SCH (09:50)
[2016-10-13] MEDS: CLOPIDOGREL 75 MG TAB PO SCH (09:50)
[2016-10-13] MEDS: OXYBUTYNIN CHLORIDE 5 MG TAB PO SCH (09:50)
[2016-10-13] MEDS: DOCUSATE SODIUM 100 MG CAP PO SCH ×2 (09:50→21:04)
[2016-10-13] MEDS: ESCITALOPRAM OXALATE 10 MG TAB PO SCH (09:50)
[2016-10-13] MEDS: ASPIRIN EC 81 MG TABEC PO SCH (09:50)
[2016-10-13] MEDS: TOBRAMYCIN 0.3%/DEXAMETHASONE 0.1% OPHT SUSP 5 ML BTL EACH EYE SCH ×3 (09:58→17:48)
[2016-10-13] MEDS: ARTIFICIAL TEARS OPTH SOLN 15 ML BTL EACH EYE SCH ×3 (09:58→17:49)
[2016-10-13] MEDS: GABAPENTIN 300 MG CAP PO SCH ×2 (10:21→21:04)
[2016-10-13] MEDS: FLUTICASONE PROPIONATE 50 MCG/ACT 16 GM NASAL SPRAY EACH NARE SCH ×2 (11:24→21:08)
[2016-10-13] MEDS ORDERED: POLYETHYLENE GLYCOL 17 GM PKG PO ONE (13:30)
--- NOTE | 2016-10-13 14:00 | HHI.CCPN ---
Subjective Remarks/Hospital Course 71-year-old female. Date of admission . Past medical history includes postpolio syndrome, chronic systolic and diastolic heart failure ejection fraction 35%, depression, gastroesophageal reflux disease, PAD , diabetes, hiatal hernia and low back pain. Today, she presents to the emergency department via EMS for acute hypoxemic respiratory arrest. EMS states the patient was at the [facility] and [place], [place], when she developed shortness of breath in the swimming pool performing water aerobics. The patient was pulled from the pool, by the [employer], and there was no evidence of drowning according to EMS report. She is noted to have agonal breathing, not responding to questioning, and intubated in the field with a 7.0 endotracheal tube. The patient was noted to have copious secretions during the intubation and required significant suctioning according to EMS. The patient did receive etomidate 20 mg and Ativan unknown amount in the field for intubation. They also administered Lasix 80 mg intravenously prior to arrival. No further information is obtainable. She is a leukocytosis of 15,000. POTASSIUM 2.9. MAGNESIUM 1.4. LACTIC ACID 8.1. Chest x-ray revealed right-sided infiltrate versus pleural effusion. CT of the chest revealed no pulmonary mucosa but small right pleural effusion in inflammatory type changes. She was treated with 1 dose of cefepime and azithromycin. Patient became hypotensive the ED while on propofol/versus/ phenyl. Central line and arterial line currently been placed. Arousable on the ventilator. Subjective 2/5: Currently afebrile. Her lactic acid essentially clear. Good urine output. Tolerating tube feeds. No bowel movement. Arousable on the ventilator and follows commands. Almost off Favio-Synephrine drip Objective Vital Signs Date Time Temp Pulse Resp B/P Pulse Ox O2 Delivery O2 Flow Rate FiO2 10/13/16 12:00 87 10/13/16 12:00 40 10/13/16 12:00 98.2 18 111/48 98 10/12/16 16:10 Auto-Vent 10/12/16 11:41 15 Intake and Output 10/12/16 10/12/16 10/13/16 08:00 16:00 00:00 Intake Total 1251 ml Output Total 1750 ml Balance -499 ml Result Diagram: 10/12/16 1155 10/13/16 0240 Other Results Microbiology Date/Time Procedure Status Source Growth 10/12/16 19:30 Influenza Types A,B Antigen ([facility]ADI) - Final Complete Nasal Washing NEGATIVE FOR FLU A AND B ANTIGEN.... 10/12/16 19:30 Gram Stain - Final Resulted Sputum Endotracheal 10/12/16 19:30 Sputum Culture Resulted Sputum Endotracheal Pending 10/12/16 15:20 Legionella Antigen - Final Complete Urine Catheterized Urine PRESUMPTIVE NEGATIVE FOR LEGIONELLA P... 10/12/16 15:20 Streptococcus pneumoniae Antigen (M - Final Complete Urine Catheterized Urine PRESUMPTIVE NEGATIVE FOR STREPTOCOCCU... 10/12/16 12:00 Aerobic Blood Culture - Preliminary Resulted Blood Peripheral NO GROWTH IN 1 DAY 10/12/16 12:00 Anaerobic Blood Culture - Preliminary Resulted Blood Peripheral NO GROWTH IN 1 DAY Imaging Last Impressions Chest X-Ray 10/12/16 1147 Signed Impressions: Service Date/Time: Wednesday, October 12, 2016 12:12 - CONCLUSION: Markedly abnormal chest with moderate airspace disease on the right. Hemorrhage vs aspiration. Nasogastric tube and ET tube in good position. Gregory Nava MD FACR CT Angiography 10/12/16 1147 Signed Impressions: Service Date/Time: Wednesday, October 12, 2016 13:53 - CONCLUSION: 1. Patchy air space disease is both lungs much worse on the right than the left suspicious for an inflammatory process. 2. There is no evidence for central pulmonary emboli. Gregory Nava MD FACR Lower Extremity Ultrasound 10/12/16 0000 Signed Impressions: Service Date/Time: Wednesday, October 12, 2016 22:15 - CONCLUSION: No DVT is identified within either lower extremity. Anup De La Rosa MD Head CT 10/12/16 0000 Signed Impressions: Service Date/Time: Wednesday, October 12, 2016 13:44 - CONCLUSION: Negative for an acute process Gregory Nava MD FACR Objective Remarks GENERAL: 71-year-old female, critically ill currently resting in bed NAD SKIN: Warm and dry. HEAD: Atraumatic. Normocephalic. EYES: Pupils equal and round about 3 mm bilaterally and reactive. No scleral icterus. No injection or drainage. ENT: No nasal bleeding or discharge. Mucous membranes pink and moist. NECK: Trachea midline. No JVD. CARDIOVASCULAR: Regular rate and rhythm. S1, S2. No S4. No S3. Faint 2/6 murmur at the apex. RESPIRATORY: No accessory muscle use. Clear to auscultation. Breath sounds equal bilaterally. GASTROINTESTINAL: Abdomen soft, non-tender, obese. Hypoactive bowel sounds MUSCULOSKELETAL: Extremities right and left lower extremity inward. Postpolio type changes. 1+ pitting edema. NEUROLOGICAL: Failure to progress intact. Moves all 4 extremities potassium. Positive gag.. Urinary Catheter: Yes Assessment to: Continue Mendoza insert reason: Prolonged Immobilization Vascular Central Line Catheter: Yes Assessment to: Continue Line: Central Venous Catheter Side: Right Location: Internal, Jugular A/P Assessment and Plan Neuro/Psych: Depression Anxiety Peripheral neuropathy Post polio syndrome Rhinitis Patient is on Versed/fentanyl drips for sedation/analgesia while intubated Goal of RASS -2 Daily sedation vacation Resume Neurontin 300 mg by mouth twice a day/home medication for neuropathy Resume Lexapro to 5 mg by mouth daily for depression Resume Abilify 2 mg by mouth daily for anxiety Patient is on Flonase 1 inhalation twice a day for allergic rhinitis CT head 10/12 revealed no acute intracranial findings CV: Chronic systolic and diastolic heart failure PAD Dyslipidemia Lactic acidosis Initial EKG showed sinus tachycardia. Troponin 0.05. Serial troponins. Echo 07/22 revealed EF 35-40%. Akinesis apical myocardium. Stage I diastolic dysfunction. Left atrial enlargement. Resume atorvastatin 40 mg by mouth daily for dyslipidemia Resume aspirin 81 mg/Plavix 75 mg daily Serial lactates until clear. Status post 3 L of normal saline On when necessary Lasix at home On low-dose Favio-Synephrine to keep MAP greater than 65 Resp: Acute hypoxic respiratory failure likely secondary to kidney cord pneumonia Tobaccoism/prior [facility] 16/ Ventilator bundle Bronchodilator therapy every 6 hours and as needed Spontaneous breathing trials when indicated. Attempt CPAP trials 2 hours today 10/12 - CTA chest revealed no central pulmonary wasn't. Right-sided inflammatory process. Small pleural effusion. GI: Gastroesophageal reflux disease Hiatal hernia Start tube feedings with Glucerna 1.5 goal 55 cc an hour Patient is on Prevacid 30 mg by mouth twice a day at home. This is been changed Protonix 40 mg IV daily Colace/as needed Senokot for bowel regimen : Incontinence Patient is on Ditropan 5 mg by mouth daily at home. Resume when clinically indicated Mendoza Is in place for accurate I's and O's in a critically ill patient Check UA - essentially no growth Endo: Diabetes mellitus Home medications metformin 500 twice a day, Amaryl 4 mg twice a day and Trajenta 5 mg daily currently on hold Sliding-scale insulin/moderate with Accu-Cheks every 6 hours to maintain euglycemia Renal: Heme: Leukocytosis Likely secondary to infection. Repeat check CBC in a.m. Monitor trends ID: Right-sided community-acquired pneumonia Pertinent cultures Blood cultures 2, sputum and urine no growth.. Influenza no growth Received 1 dose of cefepime and Zithromax ED. Switch to vancomycin, Zosyn and Zithromax day #2 FEN: Hypopotassemia Hypo-magnesium Replace per ICU electrolyte protocol. Essentially normal MSK: Chronic low back pain Heel spur PT evaluate and treat Access -Right IJ CVL day #2 Prophylaxis - GI - Protonix - DVT - SCD/heparin Critical Care: The total critical care time was 35 minutes. Time to perform other separately billable procedures was not included in the critical care time. Quan Joseph MD Oct 13, 2016 14:00
[2016-10-13] MEDS: SENNOSIDES 8.6 MG TAB PO SCH (14:32)
[2016-10-13] MEDS: SODIUM CHLOR 0.9% 1000 ML INJ 1,000 ML IV SCH (14:33)
[2016-10-13 16:57] LABS: HEMATOCRIT 31.7 % (35.0-46.0); MEAN CELL VOLUME 83.4 FL (80.0-100.0); MEAN CORPUSCULAR HEMOGLOBIN 27.4 PG (27.0-34.0); MEAN CORPUSCULAR HGB CONC 32.9 % (32.0-36.0); PLATELET COUNT 233 TH/MM3 (150-450); RED CELL DISTRIBUTION WIDTH 14.8 % (11.6-17.2); REVIEW FLAG FINAL
[2016-10-13] MEDS: AZITHROMYCIN INJ 500 MG in SODIUM CHLOR 0.9% 250 ML INJ 250 ML IV SCH (17:48)
[2016-10-13] MEDS: ATORVASTATIN 40 MG TAB PO SCH (21:04)
[2016-10-14] VITALS (16 sets, daily range): BP systolic 115–163; BP diastolic 45–65; PULSE 97–116; RESP 14–24; TEMP 98.3–99.5; O2SAT 94–100
[2016-10-14] MEDS: INSULIN NovoLIN REGULAR SUPPLEMENTAL SCALE SQ SCH ×4 (00:10→17:46)
[2016-10-14] MEDS: PIPERACIL-TAZO 4.5 GM PREMIX 100 ML IV SCH ×4 (02:24→20:31)
[2016-10-14] MEDS: SENNOSIDES 8.6 MG TAB PO SCH ×2 (02:25→15:00)
[2016-10-14] MEDS: CHLORHEXIDINE GLUCONATE 2 % 1 PACK (2 CLOTHS) TOP SCH (03:00)
[2016-10-14] MEDS: fentaNYL DRIP 250 ML IV SCH (03:50)
[2016-10-14] MEDS: RESP: ALBUTEROL 2.5 MG/IPRATROPIUM 0.5 MG NEB (SCH) INH ×7 (03:51→23:47)
[2016-10-14 04:01] LABS: AUTOMATED NEUTROPHIL # 6.8 TH/MM3 (1.8-7.7); BASOPHIL % 0.2 % (0.0-2.0); EOSINOPHIL # 0.1 TH/MM3 (0-0.4); EOSINOPHIL % 0.9 % (0.0-4.0); HEMATOCRIT 31.3 % (35.0-46.0); HEMO FLAGS DIFF FINAL; LYMPHOCYTE # 0.7 TH/MM3 (1.0-4.8); MEAN CELL VOLUME 83.6 FL (80.0-100.0); MEAN CORPUSCULAR HEMOGLOBIN 27.2 PG (27.0-34.0); MEAN CORPUSCULAR HGB CONC 32.6 % (32.0-36.0); MONO % 7.9 % (0.0-8.0); PLATELET COUNT 226 TH/MM3 (150-450); RED BLOOD COUNT 3.74 MIL/MM3 (4.00-5.30); RED CELL DISTRIBUTION WIDTH 15.4 % (11.6-17.2); WHITE BLOOD COUNT 8.3 TH/MM3 (4.0-11.0)
--- NOTE | 2016-10-14 04:11 | RADRPT ---
EXAM DATE/TIME: 10/14/2016 02:51 [facility] COMPARISON: CHEST SINGLE AP, October 12, 2016, 19:05. INDICATIONS : Shortness of breath, possible pulmonary disease. MEDICAL HISTORY : None. SURGICAL HISTORY : None. ENCOUNTER: Subsequent ACUITY: 2 days PAIN SCORE: Non-responsive. LOCATION: Bilateral chest FINDINGS: Portable AP view of the chest demonstrates a normal-sized cardiac silhouette. ETT, nasogastric tube, and right IJ central line remain present and not significantly changed in position. There is new cons olidation in the medial right lower lung zone with stable interstitial prominence bilaterally, right greater than left. No pneumothorax or pleural effusion is seen. CONCLUSION: There is new airspace consolidation in the right lower lung zone with stable interstitial changes ambrocio aterally. Anup De La Rosa MD on October 14, 2016 at 4:09 Board Certified Radiologist. This report was verified electronically.
[2016-10-14 04:23] LABS: BICARBONATE 26.7 MEQ/L (21.0-32.0); POTASSIUM 3.6 MEQ/L (3.5-5.1)
[2016-10-14 04:39] LABS: CALCIUM-PROTEIN CORRECTED 8.1 MG/DL (8.5-10.1); TOTAL BILIRUBIN ADULT 0.5 MG/DL (0.2-1.0)
[2016-10-14] MEDS: HEPARIN SODIUM - SQ 10,000 UNITS/ML VIAL SQ SCH ×2 (06:19→16:52)
[2016-10-14] MEDS: RESP: BUDESONIDE 0.5 MG/2 ML NEB NEB SCH ×2 (08:22→20:18)
[2016-10-14] MEDS: OXYBUTYNIN CHLORIDE 5 MG TAB PO SCH (09:05)
[2016-10-14] MEDS: PANTOPRAZOLE SODIUM 40 MG VIAL IV SCH (09:05)
[2016-10-14] MEDS: DOCUSATE SODIUM 100 MG CAP PO SCH ×2 (09:05→21:00)
[2016-10-14] MEDS: ESCITALOPRAM OXALATE 10 MG TAB PO SCH (09:05)
[2016-10-14] MEDS: POLYETHYLENE GLYCOL 17 GM PKG PO SCH (09:05)
[2016-10-14] MEDS: ASPIRIN EC 81 MG TABEC PO SCH (09:05)
[2016-10-14] MEDS: ARIPiprazole 2 MG TAB PO SCH (09:05)
[2016-10-14] MEDS: SODIUM CHLORIDE 0.9% FLUSH 5 ML FLUSH IV FLUSH SCH ×2 (09:06→20:31)
[2016-10-14] MEDS: ARTIFICIAL TEARS OPTH SOLN 15 ML BTL EACH EYE SCH ×3 (09:06→17:46)
[2016-10-14] MEDS: TOBRAMYCIN 0.3%/DEXAMETHASONE 0.1% OPHT SUSP 5 ML BTL EACH EYE SCH ×3 (09:06→17:46)
[2016-10-14] MEDS: FLUTICASONE PROPIONATE 50 MCG/ACT 16 GM NASAL SPRAY EACH NARE SCH ×2 (09:06→20:31)
[2016-10-14] MEDS: GABAPENTIN 300 MG CAP PO SCH ×2 (09:07→20:37)
[2016-10-14] MEDS: CLOPIDOGREL 75 MG TAB PO SCH (09:07)
--- NOTE | 2016-10-14 13:18 | EKG ---
Date Performed: 10/12/2016 Time Performed: 11:48:15 PTAGE: 71 years EKG: SINUS TACHYCARDIA POSSIBLE INFERIOR MYOCARDIAL INFARCTION Since previous tracing, no signif icant change noted ABNORMAL RHYTHM ECG PREVIOUS TRACING 12/30/2015 08.29.02 DOCTOR: Arjun Galdamez Interpretating Date/Time 10/14/2016 13:16:51
--- NOTE | 2016-10-14 14:49 | HHI.CCPN ---
Subjective Remarks/Hospital Course 71-year-old female. Date of admission . Past medical history includes postpolio syndrome, chronic systolic and diastolic heart failure ejection fraction 35%, depression, gastroesophageal reflux disease, PAD , diabetes, hiatal hernia and low back pain. Today, she presents to the emergency department via EMS for acute hypoxemic respiratory arrest. EMS states the patient was at the [facility] and [place], [place], when she developed shortness of breath in the swimming pool performing water aerobics. The patient was pulled from the pool, by the [employer], and there was no evidence of drowning according to EMS report. She is noted to have agonal breathing, not responding to questioning, and intubated in the field with a 7.0 endotracheal tube. The patient was noted to have copious secretions during the intubation and required significant suctioning according to EMS. The patient did receive etomidate 20 mg and Ativan unknown amount in the field for intubation. They also administered Lasix 80 mg intravenously prior to arrival. No further information is obtainable. She is a leukocytosis of 15,000. POTASSIUM 2.9. MAGNESIUM 1.4. LACTIC ACID 8.1. Chest x-ray revealed right-sided infiltrate versus pleural effusion. CT of the chest revealed no pulmonary mucosa but small right pleural effusion in inflammatory type changes. She was treated with 1 dose of cefepime and azithromycin. Patient became hypotensive the ED while on propofol/versus/ phenyl. Central line and arterial line currently been placed. Arousable on the ventilator. 10/14: Currently afebrile. Her lactic acid essentially clear. Good urine output. Tolerating tube feeds. No bowel movement. Arousable on the ventilator and follows commands. Almost off Favio-Synephrine drip Subjective 10/15: MAXIMUM TEMPERATURE 104. Currently 99.3. No bowel movement overnight retiring tube feeding. Tolerating CPAP trials currently. Minimal sputum Objective Vital Signs Date Time Temp Pulse Resp B/P Pulse Ox O2 Delivery O2 Flow Rate FiO2 10/14/16 12:00 40 10/14/16 12:00 98.3 111 14 128/56 99 10/12/16 16:10 Auto-Vent 10/12/16 11:41 15 Intake and Output 10/13/16 10/13/16 10/14/16 08:00 16:00 00:00 Intake Total 1099 ml 1340 ml 1671 ml Output Total 650 ml 850 ml 525 ml Balance 449 ml 490 ml 1146 ml Result Diagram: 10/14/16 0340 10/14/16 0340 Other Results Microbiology Date/Time Procedure Status Source Growth 10/12/16 19:30 Influenza Types A,B Antigen (KADI) - Final Complete Nasal Washing NEGATIVE FOR FLU A AND B ANTIGEN.... 10/12/16 19:30 Gram Stain - Final Complete Sputum Endotracheal 10/12/16 19:30 Sputum Culture - Final Complete Sputum Endotracheal HEAVY GROWTH NORMAL RESPIRATORY AGUS 10/12/16 15:20 Legionella Antigen - Final Complete Urine Catheterized Urine PRESUMPTIVE NEGATIVE FOR LEGIONELLA P... 10/12/16 15:20 Streptococcus pneumoniae Antigen (M - Final Complete Urine Catheterized Urine PRESUMPTIVE NEGATIVE FOR STREPTOCOCCU... 10/12/16 12:00 Aerobic Blood Culture - Preliminary Resulted Blood Peripheral NO GROWTH IN 2 DAYS 10/12/16 12:00 Anaerobic Blood Culture - Preliminary Resulted Blood Peripheral NO GROWTH IN 2 DAYS Imaging Last Impressions Chest X-Ray 10/14/16 0600 Signed Impressions: Service Date/Time: Friday, October 14, 2016 02:51 - CONCLUSION: There is new airspace consolidation in the right lower lung zone with stable interstitial changes bilaterally. Anup De La Rosa MD CT Angiography 10/12/16 1147 Signed Impressions: Service Date/Time: Wednesday, October 12, 2016 13:53 - CONCLUSION: 1. Patchy air space disease is both lungs much worse on the right than the left suspicious for an inflammatory process. 2. There is no evidence for central pulmonary emboli. Gregory Nava MD FACR Lower Extremity Ultrasound 10/12/16 0000 Signed Impressions: Service Date/Time: Wednesday, October 12, 2016 22:15 - CONCLUSION: No DVT is identified within either lower extremity. Anup De La Rosa MD Head CT 10/12/16 0000 Signed Impressions: Service Date/Time: Wednesday, October 12, 2016 13:44 - CONCLUSION: Negative for an acute process Gregory Nava MD FACR Objective Remarks GENERAL: 71-year-old female, critically ill currently resting in bed NAD SKIN: Warm and dry. HEAD: Atraumatic. Normocephalic. EYES: Pupils equal and round about 3 mm bilaterally and reactive. No scleral icterus. No injection or drainage. ENT: No nasal bleeding or discharge. Mucous membranes pink and moist. NECK: Trachea midline. No JVD. CARDIOVASCULAR: Regular rate and rhythm. S1, S2. No S4. No S3. Faint 2/6 murmur at the apex. RESPIRATORY: No accessory muscle use. Clear to auscultation. Breath sounds equal bilaterally. GASTROINTESTINAL: Abdomen soft, non-tender, obese. Hypoactive bowel sounds MUSCULOSKELETAL: Extremities right and left lower extremity inward. Postpolio type changes. Trace to 1+ pitting edema. NEUROLOGICAL: Arousable on the ventilator. Follows commands.. Moves all 4 extremities spontaneously Vascular Central Line Catheter: Yes Assessment to: Continue Date of Insertion: Oct 12, 2016 Line: Central Venous Catheter Side: Right Location: Internal, Jugular A/P Assessment and Plan Neuro/Psych: Depression Anxiety Peripheral neuropathy Post polio syndrome Rhinitis Patient is on Versed/fentanyl drips for sedation/analgesia while intubated Goal of RASS -2 Daily sedation vacation Resume Neurontin 300 mg by mouth twice a day/home medication for neuropathy Resume Lexapro 5 mg by mouth daily for depression Resume Abilify 2 mg by mouth daily for anxiety Patient is on Flonase 1 inhalation twice a day for allergic rhinitis CT head 10/12 revealed no acute intracranial findings CV: Chronic systolic and diastolic heart failure PAD Dyslipidemia Lactic acidosis Initial EKG showed sinus tachycardia. Troponin 0.05. Serial troponins. Echo 07/22 revealed EF 35-40%. Akinesis apical myocardium. Stage I diastolic dysfunction. Left atrial enlargement. At home on atorvastatin 40 mg by mouth daily for dyslipidemia. Hold in light of elevated transaminases Resume aspirin 81 mg/Plavix 75 mg daily Serial lactates until clear. Status post 3 L of normal saline On when necessary Lasix at home Currently off Favio-Synephrine to keep MAP greater than 65 Resp: Acute hypoxic respiratory failure likely secondary to kidney cord pneumonia Tobaccoism/prior PRVC 16/500/5/40 Ventilator bundle Bronchodilator therapy every 6 hours and as needed Spontaneous breathing trials when indicated. Really and CPAP trial with possible extubation today 10/12 - CTA chest revealed no central pulmonary wasn't. Right-sided inflammatory process. Small pleural effusion. GI: Gastroesophageal reflux disease Hiatal hernia Elevated transaminases Start tube feedings with Glucerna 1.5 goal 45 cc an hour Patient is on Prevacid 30 mg by mouth twice a day at home. This is been changed Protonix 40 mg IV daily Colace/as needed Senokot for bowel regimen Hold hepatotoxic medications. Check liver ultrasound and hepatitis panel : Incontinence Patient is on Ditropan 5 mg by mouth daily at home. Resume when clinically indicated Mendoza Is in place for accurate I's and O's in a critically ill patient Check UA - essentially no growth Endo: Diabetes mellitus Home medications metformin 500 twice a day, Amaryl 4 mg twice a day and Trajenta 5 mg daily currently on hold Sliding-scale insulin/moderate with Accu-Cheks every 6 hours to maintain euglycemia. 19 units sliding scale past 24 hours. We'll start Levemir 5 units twice a day Renal: Creatinine currently within normal limits. Monitor urine output closely Heme: Leukocytosis is resolved. Repeat check CBC in a.m. Monitor trends ID: Right-sided community-acquired pneumonia Pertinent cultures 2/3 Blood cultures 2, sputum and urine no growth.. Influenza no growth Received 1 dose of cefepime and Zithromax ED. Switched to vancomycin, Zosyn and Zithromax day #3 FEN: Hypopotassemia Hypo-magnesium Replace per ICU electrolyte protocol. Essentially normal today MSK: Chronic low back pain Heel spur PT evaluate and treat Access -Right IJ CVL day #3 Prophylaxis - GI - Protonix - DVT - SCD/heparin Critical Care: The total critical care time was 35 minutes. Time to perform other separately billable procedures was not included in the critical care time. Quan Joseph MD Oct 14, 2016 14:49
[2016-10-14] MEDS: SODIUM CHLOR 0.9% 1000 ML INJ 1,000 ML IV SCH (16:53)
[2016-10-14] MEDS: AZITHROMYCIN INJ 500 MG in SODIUM CHLOR 0.9% 250 ML INJ 250 ML IV SCH (16:53)
[2016-10-14] MEDS: INSULIN DETEMIR 100 UNITS/ML VIAL SQ SCH (20:32)
[2016-10-15] MEDS: HEPARIN SODIUM - SQ 10,000 UNITS/ML VIAL SQ SCH ×3 (00:04→17:43)
[2016-10-15] MEDS: SODIUM CHLOR 0.9% 1000 ML INJ 1,000 ML IV SCH ×2 (01:40→02:35)
[2016-10-15] MEDS: PIPERACIL-TAZO 4.5 GM PREMIX 100 ML IV SCH ×4 (01:40→20:40)
[2016-10-15] MEDS: SENNOSIDES 8.6 MG TAB PO SCH ×2 (03:00→15:00)
[2016-10-15] MEDS: RESP: ALBUTEROL 2.5 MG/IPRATROPIUM 0.5 MG NEB (SCH) INH ×5 (03:32→20:28)
[2016-10-15] MEDS: CHLORHEXIDINE GLUCONATE 2 % 1 PACK (2 CLOTHS) TOP SCH (04:00)
[2016-10-15 04:16] LABS: AUTOMATED NEUTROPHIL # 4.9 TH/MM3 (1.8-7.7); BASOPHIL % 0.3 % (0.0-2.0); EOSINOPHIL # 0.1 TH/MM3 (0-0.4); EOSINOPHIL % 2.1 % (0.0-4.0); HEMATOCRIT 29.2 % (35.0-46.0); HEMO FLAGS DIFF FINAL; LYMPH % 15.5 % (9.0-44.0); MEAN CELL VOLUME 83.5 FL (80.0-100.0); MEAN CORPUSCULAR HEMOGLOBIN 27.6 PG (27.0-34.0); NEUT % 73.1 % (16.0-70.0); PLATELET COUNT 202 TH/MM3 (150-450); RED BLOOD COUNT 3.49 MIL/MM3 (4.00-5.30); RED CELL DISTRIBUTION WIDTH 15.2 % (11.6-17.2); WHITE BLOOD COUNT 6.7 TH/MM3 (4.0-11.0)
[2016-10-15 05:06] LABS: ALKALINE PHOSPHATASE 101 U/L (45-117); ALT (GPT) 53 U/L (10-53); ANION GAP 7 MEQ/L (5-15); AST (GOT) 122 U/L (15-37); BICARBONATE 28.8 MEQ/L (21.0-32.0); BLOOD UREA NITROGEN 9 MG/DL (7-18); CHLORIDE 106 MEQ/L (98-107); CREATINE KINASE 2940 U/L (26-192); GLOMERULAR FILTRATION RATE 127 ML/MIN (>89); MAGNESIUM 1.9 MG/DL (1.5-2.5); POTASSIUM 3.7 MEQ/L (3.5-5.1); SODIUM (NA) 142 MEQ/L (136-145); TOTAL BILIRUBIN ADULT 0.6 MG/DL (0.2-1.0)
[2016-10-15 05:32] LABS: CKMB 6.1 NG/ML (0.5-3.6)
[2016-10-15] MEDS: INSULIN NovoLIN REGULAR SUPPLEMENTAL SCALE SQ SCH ×3 (06:00→12:00)
[2016-10-15 08:09] VITALS: O2SAT 100
[2016-10-15] MEDS: RESP: BUDESONIDE 0.5 MG/2 ML NEB NEB SCH ×2 (08:09→20:28)
[2016-10-15] MEDS: DOCUSATE SODIUM 100 MG CAP PO SCH ×2 (09:00→20:40)
[2016-10-15] MEDS: INSULIN DETEMIR 100 UNITS/ML VIAL SQ SCH ×2 (09:00→20:41)
[2016-10-15] MEDS: POLYETHYLENE GLYCOL 17 GM PKG PO SCH (09:00)
[2016-10-15] MEDS: ARIPiprazole 2 MG TAB PO SCH (09:14)
[2016-10-15] MEDS: CLOPIDOGREL 75 MG TAB PO SCH (09:14)
[2016-10-15] MEDS: ASPIRIN EC 81 MG TABEC PO SCH (09:14)
[2016-10-15] MEDS: OXYBUTYNIN CHLORIDE 5 MG TAB PO SCH (09:14)
[2016-10-15] MEDS: PANTOPRAZOLE SODIUM 40 MG VIAL IV SCH (09:14)
[2016-10-15] MEDS: SODIUM CHLORIDE 0.9% FLUSH 5 ML FLUSH IV FLUSH SCH ×2 (09:15→20:40)
[2016-10-15] MEDS: ESCITALOPRAM OXALATE 10 MG TAB PO SCH (09:15)
[2016-10-15] MEDS: GABAPENTIN 300 MG CAP PO SCH ×2 (09:15→20:40)
--- NOTE | 2016-10-15 09:31 | RADRPT ---
EXAM DATE/TIME: 10/15/2016 08:27 [facility] COMPARISON: No previous studies available for comparison. INDICATIONS: Increased lab values. MEDICAL HISTORY: Chronic obstructive pulmonary disease. Hypertension. Diabetic. SURGICAL HISTORY: section. Leg surgery. ENCOUNTER: Initial ACUITY: 2 days PAIN SCORE: 2/10 LOCATION: Bilateral upper quadrant MEASUREMENTS: LIVER: 17.0 cm length COMMON DUCT: 9 mm RIGHT KIDNEY: 8.4 x 5.3 x 5.0 cm SPLEEN: 13.0 cm length FINDINGS: LIVER: The liver is mildly echogenic without intrahepatic ductal dilatation. Gallbladder surgically absent. Trace ascites is present. Trace right pleural effusion is noted. Pancreas is obscured by bowel gas. Right kidney is unremarkable with hydronephrosis. CONCLUSION: Mildly echogenic liver without intrahepatic biliary duct dilatation otherwise. Gregory Nava MD FACR on October 15, 2016 at 9:13 Board Certified Radiologist. This report was verified electronically.
--- NOTE | 2016-10-15 13:54 | HHI.CCPN ---
Subjective Remarks/Hospital Course 71-year-old female. Date of admission . Past medical history includes postpolio syndrome, chronic systolic and diastolic heart failure ejection fraction 35%, depression, gastroesophageal reflux disease, PAD , diabetes, hiatal hernia and low back pain. Today, she presents to the emergency department via EMS for acute hypoxemic respiratory arrest. EMS states the patient was at the [facility] and [place], [place], when she developed shortness of breath in the swimming pool performing water aerobics. The patient was pulled from the pool, by the [employer], and there was no evidence of drowning according to EMS report. She is noted to have agonal breathing, not responding to questioning, and intubated in the field with a 7.0 endotracheal tube. The patient was noted to have copious secretions during the intubation and required significant suctioning according to EMS. The patient did receive etomidate 20 mg and Ativan unknown amount in the field for intubation. They also administered Lasix 80 mg intravenously prior to arrival. No further information is obtainable. She is a leukocytosis of 15,000. POTASSIUM 2.9. MAGNESIUM 1.4. LACTIC ACID 8.1. Chest x-ray revealed right-sided infiltrate versus pleural effusion. CT of the chest revealed no pulmonary mucosa but small right pleural effusion in inflammatory type changes. She was treated with 1 dose of cefepime and azithromycin. Patient became hypotensive the ED while on propofol/versus/ phenyl. Central line and arterial line currently been placed. Arousable on the ventilator. 10/14: Currently afebrile. Her lactic acid essentially clear. Good urine output. Tolerating tube feeds. No bowel movement. Arousable on the ventilator and follows commands. Almost off Favio-Synephrine drip Subjective 10/15: MAXIMUM TEMPERATURE 104. Currently 99.3. No bowel movement overnight retiring tube feeding. Tolerating CPAP trials currently. Minimal sputum. 10/16: Extubated yesterday, tolerating well. On nasal cannula. Remains off pressors. Following commands. Objective Vital Signs Date Time Temp Pulse Resp B/P Pulse Ox O2 Delivery O2 Flow Rate FiO2 10/15/16 08:09 100 Nasal Cannula 4.00 10/14/16 18:00 106 10/14/16 16:00 40 10/14/16 16:00 98.5 24 163/65 Intake and Output 10/14/16 10/14/16 10/15/16 08:00 16:00 00:00 Intake Total 1239 ml 1462 ml Output Total 750.0 ml 950 ml Balance 489.0 ml 512 ml Result Diagram: 10/15/16 0400 10/15/16 0400 Other Results Microbiology Date/Time Procedure Status Source Growth 10/12/16 15:20 Legionella Antigen - Final Complete Urine Catheterized Urine PRESUMPTIVE NEGATIVE FOR LEGIONELLA P... 10/12/16 15:20 Streptococcus pneumoniae Antigen (M - Final Complete Urine Catheterized Urine PRESUMPTIVE NEGATIVE FOR STREPTOCOCCU... 10/12/16 19:30 Gram Stain - Final Complete Sputum Endotracheal 10/12/16 19:30 Sputum Culture - Final Complete Sputum Endotracheal HEAVY GROWTH NORMAL RESPIRATORY AGUS 10/12/16 19:30 Influenza Types A,B Antigen (KADI) - Final Complete Nasal Washing NEGATIVE FOR FLU A AND B ANTIGEN.... Imaging Last Impressions Chest X-Ray 10/14/16 0600 Signed Impressions: Service Date/Time: Friday, October 14, 2016 02:51 - CONCLUSION: There is new airspace consolidation in the right lower lung zone with stable interstitial changes bilaterally. Anup De La Rosa MD CT Angiography 10/12/16 1147 Signed Impressions: Service Date/Time: Wednesday, October 12, 2016 13:53 - CONCLUSION: 1. Patchy air space disease is both lungs much worse on the right than the left suspicious for an inflammatory process. 2. There is no evidence for central pulmonary emboli. Gregory Nava MD FACR Lower Extremity Ultrasound 10/12/16 0000 Signed Impressions: Service Date/Time: Wednesday, October 12, 2016 22:15 - CONCLUSION: No DVT is identified within either lower extremity. Anup De La Rosa MD Head CT 10/12/16 0000 Signed Impressions: Service Date/Time: Wednesday, October 12, 2016 13:44 - CONCLUSION: Negative for an acute process Gregory Nava MD FACR Objective Remarks GENERAL: 71-year-old female, currently resting in bed NAD SKIN: Warm and dry. HEAD: Atraumatic. Normocephalic. EYES: Pupils equal and round about 3 mm bilaterally and reactive. No scleral icterus. No injection or drainage. ENT: No nasal bleeding or discharge. Mucous membranes pink and moist. NECK: Trachea midline. No JVD. CARDIOVASCULAR: Regular rate and rhythm. S1, S2. No S4. No S3. Faint 2/6 murmur at the apex. RESPIRATORY: No accessory muscle use. Clear to auscultation. Breath sounds equal bilaterally. GASTROINTESTINAL: Abdomen soft, non-tender, obese. Hypoactive bowel sounds MUSCULOSKELETAL: Extremities right and left lower extremity inward. Postpolio type changes. Trace to 1+ pitting edema. NEUROLOGICAL: Arousable on the ventilator. Follows commands.. Moves all 4 extremities spontaneously Date of Insertion: Oct 12, 2016 Line: Central Venous Catheter Side: Right Location: Internal, Jugular A/P Assessment and Plan Neuro/Psych: Depression Anxiety Peripheral neuropathy Post polio syndrome Rhinitis Continue Neurontin 300 mg by mouth twice a day/home medication for neuropathy Continue Lexapro 5 mg by mouth daily for depression Continue Abilify 2 mg by mouth daily for anxiety Patient is on Flonase 1 inhalation twice a day for allergic rhinitis CT head 10/12 revealed no acute intracranial findings CV: Chronic systolic and diastolic heart failure PAD Dyslipidemia Lactic acidosis Initial EKG showed sinus tachycardia. Troponin 0.05. Serial troponins. Echo 07/22 revealed EF 35-40%. Akinesis apical myocardium. Stage I diastolic dysfunction. Left atrial enlargement. At home on atorvastatin 40 mg by mouth daily for dyslipidemia. Hold in light of elevated transaminases Continue aspirin 81 mg/Plavix 75 mg daily Serial lactates until clear. Status post 3 L of normal saline On when necessary Lasix at home Currently off Favio-Synephrine to keep MAP greater than 65 Resp: Acute hypoxic respiratory failure likely secondary to kidney cord pneumonia Tobaccoism/prior Extubated on 10/14, on nasal cannula currently Bronchodilator therapy every 6 hours and as needed 10/12 - CTA chest revealed no central pulmonary embolism. Right-sided inflammatory process. Small pleural effusion. GI: Gastroesophageal reflux disease Hiatal hernia Elevated transaminases Advance by mouth diet as tolerated following swallow eval. Patient is on Prevacid 30 mg by mouth twice a day at home. This is been changed Protonix 40 mg IV daily Colace/as needed Senokot for bowel regimen Hold hepatotoxic medications. Check liver ultrasound and hepatitis panel : Incontinence Patient is on Ditropan 5 mg by mouth daily at home. Resume when clinically indicated Mendoza Is in place for accurate I's and O's in a critically ill patient Check UA - essentially no growth Endo: Diabetes mellitus Home medications metformin 500 twice a day, Amaryl 4 mg twice a day and Trajenta 5 mg daily currently on hold Sliding-scale insulin/moderate with Accu-Cheks every 6 hours to maintain euglycemia. Levemir 5 units twice a day Renal: Creatinine currently within normal limits. Monitor urine output closely Heme: Leukocytosis is resolved. Repeat check CBC in a.m. Monitor trends ID: Right-sided community-acquired pneumonia Pertinent cultures 2/3 Blood cultures 2, sputum and urine no growth.. Influenza no growth Received 1 dose of cefepime and Zithromax ED. Switched to vancomycin, Zosyn and Zithromax day #4 FEN: Hypopotassemia Hypo-magnesium Replace per ICU electrolyte protocol. MSK: Chronic low back pain Heel spur PT evaluate and treat Access -Right IJ CVL day #4 Prophylaxis - GI - Protonix - DVT - SCD/heparin Reginaldo Funez MD Oct 15, 2016 13:54
[2016-10-15] MEDS: TOBRAMYCIN 0.3%/DEXAMETHASONE 0.1% OPHT SUSP 5 ML BTL EACH EYE SCH ×3 (16:11→17:44)
[2016-10-15] MEDS: FLUTICASONE PROPIONATE 50 MCG/ACT 16 GM NASAL SPRAY EACH NARE SCH ×2 (16:11→20:49)
[2016-10-15] MEDS: ARTIFICIAL TEARS OPTH SOLN 15 ML BTL EACH EYE SCH ×3 (16:11→17:44)
[2016-10-15] MEDS: AZITHROMYCIN INJ 500 MG in SODIUM CHLOR 0.9% 250 ML INJ 250 ML IV SCH (17:44)
[2016-10-15 20:00] VITALS: BP 165/60; PULSE 103; RESP 18; TEMP 98.2; O2SAT 97
[2016-10-15 20:28] VITALS: O2SAT 99
[2016-10-15 22:00] VITALS: PULSE 102
[2016-10-16] VITALS (7 sets, daily range): BP systolic 147–155; BP diastolic 63–64; PULSE 88–98; RESP 20–22; TEMP 98.2–98.7; O2SAT 97–100
[2016-10-16] MEDS: RESP: ALBUTEROL 2.5 MG/IPRATROPIUM 0.5 MG NEB (SCH) INH ×7 (00:10→23:58)
[2016-10-16] MEDS: HEPARIN SODIUM - SQ 10,000 UNITS/ML VIAL SQ SCH ×4 (00:27→21:16)
[2016-10-16] MEDS: INSULIN NovoLIN REGULAR SUPPLEMENTAL SCALE SQ SCH ×5 (00:28→23:14)
[2016-10-16] MEDS: SENNOSIDES 8.6 MG TAB PO SCH ×2 (03:00→15:00)
[2016-10-16] MEDS: PIPERACIL-TAZO 4.5 GM PREMIX 100 ML IV SCH ×4 (03:04→21:15)
[2016-10-16] MEDS: CHLORHEXIDINE GLUCONATE 2 % 1 PACK (2 CLOTHS) TOP SCH ×2 (04:30→23:14)
[2016-10-16] MEDS: RESP: BUDESONIDE 0.5 MG/2 ML NEB NEB SCH ×2 (07:52→19:56)
[2016-10-16] MEDS: PANTOPRAZOLE SODIUM 40 MG VIAL IV SCH (08:11)
[2016-10-16] MEDS: ESCITALOPRAM OXALATE 10 MG TAB PO SCH (08:11)
[2016-10-16] MEDS: OXYBUTYNIN CHLORIDE 5 MG TAB PO SCH (08:13)
[2016-10-16] MEDS: CLOPIDOGREL 75 MG TAB PO SCH (08:13)
[2016-10-16] MEDS: DOCUSATE SODIUM 100 MG CAP PO SCH ×2 (08:13→21:16)
[2016-10-16] MEDS: GABAPENTIN 300 MG CAP PO SCH ×2 (08:13→21:16)
[2016-10-16] MEDS: ARIPiprazole 2 MG TAB PO SCH (08:13)
[2016-10-16] MEDS: ASPIRIN EC 81 MG TABEC PO SCH (08:13)
[2016-10-16] MEDS: ARTIFICIAL TEARS OPTH SOLN 15 ML BTL EACH EYE SCH ×3 (08:15→18:15)
[2016-10-16] MEDS: TOBRAMYCIN 0.3%/DEXAMETHASONE 0.1% OPHT SUSP 5 ML BTL EACH EYE SCH ×3 (08:15→18:16)
[2016-10-16] MEDS: SODIUM CHLORIDE 0.9% FLUSH 5 ML FLUSH IV FLUSH SCH ×2 (08:15→21:16)
[2016-10-16] MEDS: FLUTICASONE PROPIONATE 50 MCG/ACT 16 GM NASAL SPRAY EACH NARE SCH ×2 (08:15→21:00)
[2016-10-16] MEDS: POLYETHYLENE GLYCOL 17 GM PKG PO SCH (08:17)
--- NOTE | 2016-10-16 08:52 | HHI.PR ---
Subjective Remarks mild confusion. getting neb rx. Objective Vitals mild confused cooperative getting nebs heart reg lung good air entry b abd s/nt ext no edema Vital Signs Date Time Temp Pulse Resp B/P Pulse Ox O2 Delivery O2 Flow Rate FiO2 10/16/16 07:51 100 Nasal Cannula 2.00 10/16/16 06:00 93 10/16/16 04:00 93 10/16/16 04:00 98.7 98 22 147/63 100 10/16/16 00:00 98.6 98 20 153/64 98 10/16/16 00:00 98 10/15/16 22:00 99 Nasal Cannula 3.00 10/15/16 22:00 102 10/15/16 21:43 18 10/15/16 20:28 99 Nasal Cannula 3.00 10/15/16 20:00 103 10/15/16 20:00 98.2 103 18 165/60 97 10/15/16 20:00 97 Nasal Cannula 4.00 10/15/16 10/15/16 10/16/16 15:00 23:00 07:00 Intake Total 1580 ml 393 ml Output Total 1600 ml 1250 ml Balance -20 ml -857 ml Intake Oral 30 ml 60 ml IV Total 1550 ml 333 ml Tube Feeding 0 ml Output Urine Total 1600 ml 1250 ml # Bowel Movements 3 1 Result Diagram: 10/15/16 0400 10/15/16 0400 Date of Insertion: Oct 12, 2016 Line: Central Venous Catheter Side: Right Location: Internal, Jugular A/P Problem List: (1) Acute hypoxemic respiratory failure Status: Acute Plan: Pt was performing aerobics in [facility]. She tells me that she may have developed some chest pain as she did about 1 month prior during the class. She reports that she was trying to get to edge of pool and "sank". Can't recall anything after that and ? aspiration of pool water. reports suggest pt pulled from water and EMS found her to have respiratory arrest but no report of cardiac arrest or cpr. She had copious secretion in airway and was intubated in field. On arrival she was hypotensive requiring pressors. She was found to have right lung airspace dz more than left concerning for aspiration pneumonia. Her ekg showed sinus tach. Her ck, ckmb, troponin trending up but ckmb percent nml. cont iv abx to cover aspiration. wean oxygen cont nebulizer rx dvt prophyaxis. PT. 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 plan for transfer out of icu tomorrow if stable. (2) DM (diabetes mellitus) Status: Chronic Plan: ssi and resume meds as tolerated (3) PAD (peripheral artery disease) Status: Chronic (4) Hypomagnesemia Status: Acute (5) Hypopotassemia Status: Acute (6) Chronic combined systolic and diastolic heart failure Status: Chronic (7) Gastroesophageal reflux disease Status: Chronic (8) Post-polio syndrome Status: Chronic (9) Low back pain Status: Chronic (10) Incontinence in female Status: Chronic (11) Peripheral neuropathy Status: Chronic (12) Depression Status: Chronic Problem Qualifiers (1) DM (diabetes mellitus): Qualified Code: E11.8 - Type 2 diabetes mellitus with complication, without long-term current use of insulin (2) Gastroesophageal reflux disease: Qualified Code: K21.9 - Gastroesophageal reflux disease, esophagitis presence not specified (3) Low back pain: Qualified Code: M54.5 - Chronic bilateral low back pain without sciatica (4) Peripheral neuropathy: Qualified Code: G62.9 - Peripheral polyneuropathy (5) Depression: Qualified Code: F32.9 - Depression, unspecified depression type Jacoby Rodriguez MD Oct 16, 2016 08:52
[2016-10-16] MEDS: INSULIN DETEMIR 100 UNITS/ML VIAL SQ SCH ×2 (09:00→21:00)
[2016-10-16] MEDS: AZITHROMYCIN INJ 500 MG in SODIUM CHLOR 0.9% 250 ML INJ 250 ML IV SCH (18:22)
[2016-10-17] VITALS (14 sets, daily range): BP systolic 51–179; BP diastolic 43–80; PULSE 68–95; RESP 18–24; TEMP 96.6–98.7; O2SAT 94–99
[2016-10-17] MEDS: PIPERACIL-TAZO 4.5 GM PREMIX 100 ML IV SCH ×4 (02:15→23:18)
[2016-10-17] MEDS: RESP: ALBUTEROL 2.5 MG/IPRATROPIUM 0.5 MG NEB (SCH) INH ×5 (03:03→20:06)
[2016-10-17] MEDS: INSULIN NovoLIN REGULAR SUPPLEMENTAL SCALE SQ SCH ×4 (05:17→23:41)
[2016-10-17] MEDS: HEPARIN SODIUM - SQ 10,000 UNITS/ML VIAL SQ SCH ×3 (06:16→21:17)
[2016-10-17 06:18] LABS: BICARBONATE 30.1 MEQ/L (21.0-32.0); MAGNESIUM 1.7 MG/DL (1.5-2.5); POTASSIUM 3.5 MEQ/L (3.5-5.1)
[2016-10-17 06:22] LABS: INDIRECT BILIRUBIN 0.3 MG/DL (0.0-0.8); TOTAL BILIRUBIN ADULT 0.4 MG/DL (0.2-1.0)
[2016-10-17 06:53] LABS: CKMB 1.1 NG/ML (0.5-3.6)
[2016-10-17] MEDS: RESP: BUDESONIDE 0.5 MG/2 ML NEB NEB SCH ×2 (07:28→20:06)
[2016-10-17] MEDS: TOBRAMYCIN 0.3%/DEXAMETHASONE 0.1% OPHT SUSP 5 ML BTL EACH EYE SCH ×3 (09:00→17:40)
[2016-10-17] MEDS: ARTIFICIAL TEARS OPTH SOLN 15 ML BTL EACH EYE SCH ×3 (09:00→17:40)
[2016-10-17] MEDS: FLUTICASONE PROPIONATE 50 MCG/ACT 16 GM NASAL SPRAY EACH NARE SCH ×2 (09:00→21:00)
[2016-10-17] MEDS: INSULIN DETEMIR 100 UNITS/ML VIAL SQ SCH ×2 (09:00→21:17)
--- NOTE | 2016-10-17 09:12 | HHI.PR ---
Subjective Remarks c/o of buttock pain and right arm pain. temporarily restrained overnight by nursing for agitation and trying to get oob. Objective Vitals oriented. agitated heart reg lung diminished bases abd s/nt ext no edema right mid-humerus area tender. no hematoma good ROM. intact pulses. no skin breakdown over buttock. Vital Signs Date Time Temp Pulse Resp B/P Pulse Ox O2 Delivery O2 Flow Rate FiO2 10/17/16 08:00 87 10/17/16 08:00 98.0 94 24 179/75 96 10/17/16 07:28 97 Nasal Cannula 3.00 10/17/16 07:00 100 Nasal Cannula 4.00 10/17/16 06:00 84 10/17/16 04:00 98.4 90 18 150/63 96 10/17/16 04:00 90 10/17/16 02:00 83 10/17/16 00:00 98.0 92 21 154/61 99 10/17/16 00:00 92 10/16/16 22:00 88 10/16/16 20:00 90 10/16/16 20:00 98.2 90 20 155/64 100 10/16/16 19:56 97 Nasal Cannula 3.00 10/16/16 19:00 Nasal Cannula 3.00 10/16/16 10/16/16 10/17/16 15:00 23:00 07:00 Intake Total 360 ml 720 ml 544 ml Output Total 950 ml 700 ml Balance 360 ml -230 ml -156 ml Intake Oral 360 ml 400 ml 400 ml IV Total 144 ml Tube Feeding 320 ml Output Urine Total 950 ml 700 ml # Bowel Movements 1 Result Diagram: 10/15/16 0400 10/17/16 0545 Date of Insertion: Oct 12, 2016 Line: Central Venous Catheter Side: Right Location: Internal, Jugular A/P Problem List: (1) Acute hypoxemic respiratory failure Status: Acute Plan: Pt was performing aerobics in [facility] Pool. She tells me that she may have developed some chest pain as she did about 1 month prior during the class. She reports that she was trying to get to edge of pool and "sank". Can't recall anything after that and ? aspiration of pool water. reports suggest pt pulled from water and EMS found her to have respiratory arrest but no report of cardiac arrest or cpr. She had copious secretion in airway and was intubated in field. On arrival she was hypotensive requiring pressors. She was found to have right lung airspace dz more than left concerning for aspiration pneumonia. Her ekg showed sinus tach. Her ck, ckmb, troponin trending up but ckmb percent nml. cont iv abx to cover aspiration. wean oxygen cont nebulizer rx dvt prophyaxis. PT. oob today. incentive spirometer. when stable will ask her screenplay writer opinion if ischemic w/up needed. ...elevation of enzymes could be from rhabdo or tachycardia. check echo. transfer to med/surg call . pain control. (2) DM (diabetes mellitus) Status: Chronic Plan: ssi and resume meds as tolerated (3) PAD (peripheral artery disease) Status: Chronic (4) Hypomagnesemia Status: Acute (5) Hypopotassemia Status: Acute (6) Chronic combined systolic and diastolic heart failure Status: Chronic (7) Gastroesophageal reflux disease Status: Chronic (8) Post-polio syndrome Status: Chronic (9) Low back pain Status: Chronic (10) Incontinence in female Status: Chronic (11) Peripheral neuropathy Status: Chronic (12) Depression Status: Chronic Problem Qualifiers (1) DM (diabetes mellitus): Qualified Code: E11.8 - Type 2 diabetes mellitus with complication, without long-term current use of insulin (2) Gastroesophageal reflux disease: Qualified Code: K21.9 - Gastroesophageal reflux disease, esophagitis presence not specified (3) Low back pain: Qualified Code: M54.5 - Chronic bilateral low back pain without sciatica (4) Peripheral neuropathy: Qualified Code: G62.9 - Peripheral polyneuropathy (5) Depression: Qualified Code: F32.9 - Depression, unspecified depression type Jacoby Rodriguez MD Oct 17, 2016 09:12
[2016-10-17] MEDS: ASPIRIN EC 81 MG TABEC PO SCH (10:24)
[2016-10-17] MEDS: OXYBUTYNIN CHLORIDE 5 MG TAB PO SCH (10:24)
[2016-10-17] MEDS: ARIPiprazole 2 MG TAB PO SCH (10:24)
[2016-10-17] MEDS: PANTOPRAZOLE SODIUM 40 MG VIAL IV SCH (10:24)
[2016-10-17] MEDS: ESCITALOPRAM OXALATE 10 MG TAB PO SCH (10:24)
[2016-10-17] MEDS: DOCUSATE SODIUM 100 MG CAP PO SCH ×2 (10:24→21:16)
[2016-10-17] MEDS: GABAPENTIN 300 MG CAP PO SCH ×2 (10:24→21:16)
[2016-10-17] MEDS: SODIUM CHLORIDE 0.9% FLUSH 5 ML FLUSH IV FLUSH SCH ×2 (10:25→21:17)
[2016-10-17] MEDS: CLOPIDOGREL 75 MG TAB PO SCH (10:25)
[2016-10-17] MEDS: ACETAMINOPHEN/HYDROcodone 325 MG/5 MG TAB PO PRN ×3 (10:49→23:41)
[2016-10-17] MEDS: AZITHROMYCIN INJ 500 MG in SODIUM CHLOR 0.9% 250 ML INJ 250 ML IV SCH (17:39)
--- NOTE | 2016-10-17 19:00 | EC ---
Study Study Date:10/17/2016 STUDY CONCLUSIONS SUMMARY - Left ventricle: The cavity size was normal. Wall thickness was normal. Systolic function was mildly to moderately reduced. The estimated ejection fraction was in the range of 40% to 45%. Wall motion was normal; there were no regional wall motion abnormalities. - Aortic valve: Valve area: 1.7cm^2(VTI). Valve area: 1.65cm^2 (Vmax). - Mitral valve: Mild to moderate regurgitation. - Pulmonary arteries: PA peak pressure: 53mm Hg (S). If LV function is below 40, please consider prescribing an ACEI or ARB or document rationale for non-use. PROCEDURE DATA STUDY STATUS: Elective. Procedure: Transthoracic echocardiography. Image quality was good. Scanning was performed from the parasternal, apical, and subcostal acoustic windows. Study completion: The patient tolerated the procedure well. Transthoracic echocardiography. M-mode, complete 2D, complete spectral Doppler, and color Doppler. Height: Height: 64in. Weight: Weight: 164.7lb. Body mass index: BMI: 28.3kg/m^2. Body surface area: BSA: 1.8m^2. Patient status: Inpatient. CARDIAC ANATOMY LEFT VENTRICLE: The cavity size was normal. Wall thickness was normal. Systolic function was mildly to moderately reduced. The estimated ejection fraction was in the range of 40% to 45%. Wall motion was normal; there were no regional wall motion abnormalities. AORTIC VALVE: Trileaflet; normal thickness leaflets. Doppler: Transvalvular velocity was within the normal range. There was no stenosis. No regurgitation. Valve area: 1.7cm^2(VTI). Indexed valve area: 0.94cm^2/m^2 (VTI). Valve area: 1.65cm^2 (Vmax). Indexed valve area: 0.92cm^2/m^2 (Vmax). Mean gradient: 4mm Hg (S). AORTA: Aortic root: The aortic root was normal in size. MITRAL VALVE: Structurally normal valve. Doppler: Transvalvular velocity was within the normal range. There was no evidence for stenosis. Mild to moderate regurgitation. Peak gradient: 3mm Hg (D). LEFT ATRIUM: The atrium was normal in size. RIGHT VENTRICLE: The cavity size was normal. Wall thickness was normal. PULMONIC VALVE: Doppler: Transvalvular velocity was within the normal range. There was no evidence for stenosis. No regurgitation. TRICUSPID VALVE: Structurally normal valve. Doppler: Transvalvular velocity was within the normal range. No regurgitation. PULMONARY ARTERY: The main pulmonary artery was normal-sized. Systolic pressure was within the normal range. RIGHT ATRIUM: The atrium was normal in size. PERICARDIUM: There was no pericardial effusion. SYSTEMIC VEINS: Inferior vena cava: The vessel was normal in size. Patient weight: 164.7lb _Ejection fraction:_ 65-75% _Fractional shortening:_ 32% up to 5Kg 5-11.5Kg 11.6-22.9Kg 23-45Kg 45-57Kg Aortic Root 7-13 <17 13-22 17-27 17-27 LA diam 6-13 <23 24-38 33-47 37-40 RVID 10-17 7-15 7-15 7-18 8-17 LVIDd 12-22 <32 24-38 33-47 37-40 LVPW 2-4 3-6 5-7 6-8 7-8 IVS 2-4 3-6 5-7 6-8 7-8 BASIC MEASUREMENTS ADULT NORMAL Left ventricle LV internal dimension, ED, chordal 44.9 mm 43-52 level, PLAX LV internal dimension, ES, chordal 37.8 mm 23-38 level, PLAX Fractional shortening, chordal level, *16 % >29 PLAX LV posterior wall thickness, ED 7.45 mm IVS/LVPW ratio, ED 1.25 <1.3 Volume, ED, MOD, 1-plane 91 ml Volume, ES, MOD, 1-plane 60 ml Ejection fraction, MOD, 1-plane 34 % Stroke volume, MOD, 1-plane 31 ml Volume index, ED, MOD, 1-plane 51 ml/m^2 Volume index, ES, MOD, 1-plane 33 ml/m^2 Stroke index, MOD, 1-plane 17.2 ml/m^2 Volume, ED, MOD, 2-plane 108 ml Volume, ES, MOD, 2-plane 62 ml Ejection fraction, MOD, 2-plane 43 % Stroke volume, MOD, 2-plane 46 ml Volume index, ED, MOD, 2-plane 60 ml/m^2 Volume index, ES, MOD, 2-plane 34 ml/m^2 Stroke index, MOD, 2-plane 25.6 ml/m^2 Ventricular septum Septal thickness, ED 9.31 mm Aorta Root diameter, ED 26 mm Left atrium Anterior-posterior dimension 32 mm Anterior-posterior dimension index 1.78 cm/m^2 <2.2 DOPPLER MEASUREMENTS ADULT NORMAL Main pulmonary artery Pressure, S *53 mm Hg =30 Aortic valve Peak velocity, S 134 cm/s Mean velocity, S 93.6 cm/s VTI, S 29.3 cm Mean gradient, S 4 mm Hg Valve area, VTI 1.7 cm^2 Valve area index, VTI 0.94 cm^2/m^2 Valve area, Vmax 1.65 cm^2 Valve area index, Vmax 0.92 cm^2/m^2 Mitral valve Peak E-wave velocity 91.6 cm/s Peak A-wave velocity 117 cm/s Peak gradient, D 3 mm Hg Peak E/A ratio 0.8 Tricuspid valve Regurgitant peak velocity 326 cm/s Peak RV-RA gradient, S 43 mm Hg Maximal regurgitant velocity 326 cm/s Systemic veins Estimated CVP 10 mm Hg Right ventricle RV pressure, S *53 mm Hg <30 Pulmonic valve Peak velocity, S 34.3 cm/s LEGEND: Mean values are shown as u=mean value. Asterisk (*) johansen values outside specified normal range. Prepared and signed by Jim Kent [id number]
[2016-10-18] VITALS (11 sets, daily range): BP systolic 91–138; BP diastolic 53–77; PULSE 85–92; RESP 16–22; TEMP 96.3–97.2; O2SAT 93–98
[2016-10-18] MEDS: RESP: ALBUTEROL 2.5 MG/IPRATROPIUM 0.5 MG NEB (SCH) INH ×6 (00:15→23:51)
[2016-10-18] MEDS: CHLORHEXIDINE GLUCONATE 2 % 1 PACK (2 CLOTHS) TOP SCH (04:00)
[2016-10-18] MEDS: PIPERACIL-TAZO 4.5 GM PREMIX 100 ML IV SCH ×4 (05:15→20:14)
[2016-10-18] MEDS: HEPARIN SODIUM - SQ 10,000 UNITS/ML VIAL SQ SCH ×3 (05:23→23:49)
[2016-10-18] MEDS: INSULIN NovoLIN REGULAR SUPPLEMENTAL SCALE SQ SCH ×4 (05:24→23:54)
--- NOTE | 2016-10-18 05:32 | RADRPT ---
EXAM DATE/TIME: 10/18/2016 04:50 [facility] COMPARISON: CHEST SINGLE AP, October 14, 2016, 2:51. INDICATIONS : Shortness of breath, possible pulmonary disease. MEDICAL HISTORY : None. SURGICAL HISTORY : None. ENCOUNTER: Subsequent ACUITY: 1 week PAIN SCORE: 0/10 LOCATION: Bilateral chest FINDINGS: Cardiomegaly. Right medial basilar consolidation and atelectasis, increased from previous. Aortic anastasiya cification. Degenerative changes of the spine. Left basilar atelectasis versus airspace disease. CONCLUSION: Increasing airspace disease on the right. Akhil Weaver MD on October 18, 2016 at 5:30 Board Certified Radiologist. This report was verified electronically.
[2016-10-18] MEDS: RESP: BUDESONIDE 0.5 MG/2 ML NEB NEB SCH ×2 (08:35→19:35)
[2016-10-18] MEDS: PANTOPRAZOLE SODIUM 40 MG VIAL IV SCH (08:55)
[2016-10-18] MEDS: ASPIRIN EC 81 MG TABEC PO SCH (08:55)
[2016-10-18] MEDS: OXYBUTYNIN CHLORIDE 5 MG TAB PO SCH (08:55)
[2016-10-18] MEDS: DOCUSATE SODIUM 100 MG CAP PO SCH ×2 (08:55→20:17)
[2016-10-18] MEDS: ESCITALOPRAM OXALATE 10 MG TAB PO SCH (08:55)
[2016-10-18] MEDS: ARIPiprazole 2 MG TAB PO SCH (08:55)
[2016-10-18] MEDS: INSULIN DETEMIR 100 UNITS/ML VIAL SQ SCH ×2 (08:55→20:20)
[2016-10-18] MEDS: CLOPIDOGREL 75 MG TAB PO SCH (08:55)
[2016-10-18] MEDS: ACETAMINOPHEN/HYDROcodone 325 MG/5 MG TAB PO PRN ×4 (08:55→23:49)
[2016-10-18] MEDS: ARTIFICIAL TEARS OPTH SOLN 15 ML BTL EACH EYE SCH ×3 (08:56→17:47)
[2016-10-18] MEDS: TOBRAMYCIN 0.3%/DEXAMETHASONE 0.1% OPHT SUSP 5 ML BTL EACH EYE SCH ×3 (08:56→17:47)
[2016-10-18] MEDS: SODIUM CHLORIDE 0.9% FLUSH 5 ML FLUSH IV FLUSH SCH ×2 (08:56→20:18)
[2016-10-18] MEDS: GABAPENTIN 300 MG CAP PO SCH ×2 (09:04→20:15)
[2016-10-18 09:30] LABS: C. DIFF EPI 027 PRESUMPTIVE NEGATIVE (NEGATIVE); C. DIFF TOXIN PCR NEGATIVE (NEGATIVE)
[2016-10-18] MEDS ORDERED: LOPERAMIDE HCL 2 MG CAP PO ONE (09:45)
[2016-10-18 09:56] LABS: BICARBONATE 29.3 MEQ/L (21.0-32.0); POTASSIUM 3.3 MEQ/L (3.5-5.1)
[2016-10-18] MEDS ORDERED: POTASSIUM CHLORIDE 20 MEQ CONTROLLED RELEASE TAB PO ONE (10:45)
--- NOTE | 2016-10-18 10:54 | HHI.PR ---
Subjective Remarks diarrhea last night. pt/ state she has chronic diarrhea and takes immodium at home. Objective Vitals oriented. nad heart reg lung diminished bases abd s/nt ext no edema Vital Signs Date Time Temp Pulse Resp B/P Pulse Ox O2 Delivery O2 Flow Rate FiO2 10/18/16 08:58 97.2 88 22 138/68 97 10/18/16 08:38 95 Nasal Cannula 3.00 10/18/16 04:00 96.8 86 16 91/63 96 10/17/16 23:29 97.6 88 18 122/68 94 10/17/16 20:10 76/54 145/80 10/17/16 20:06 97 Nasal Cannula 3.00 10/17/16 20:01 94 10/17/16 20:00 96.6 68 18 51/43 96 10/17/16 17:30 97.4 94 18 145/55 97 10/17/16 12:00 89 10/17/16 12:00 98.7 95 21 127/58 96 10/17/16 10/17/16 10/18/16 15:00 23:00 07:00 Intake Total 418 ml 300 ml 200 ml Output Total 450 ml Balance -32 ml 300 ml 200 ml Intake Oral 360 ml 300 ml 200 ml IV Total 58 ml Output Urine Total 450 ml # Voids 1 1 # Bowel Movements 1 1 1 Result Diagram: 10/15/16 0400 10/18/16 0910 Date of Insertion: Oct 12, 2016 Line: Central Venous Catheter Side: Right Location: Internal, Jugular A/P Problem List: (1) Acute hypoxemic respiratory failure Status: Acute Plan: Pt was performing aerobics in [facility] Pool. She tells me that she may have developed some chest pain as she did about 1 month prior during the class. She reports that she was trying to get to edge of pool and "sank". Can't recall anything after that and ? aspiration of pool water. reports suggest pt pulled from water and EMS found her to have respiratory arrest but no report of cardiac arrest or cpr. She had copious secretion in airway and was intubated in field. On arrival she was hypotensive requiring pressors. She was found to have right lung airspace dz more than left concerning for aspiration pneumonia. Her ekg showed sinus tach. Her ck, ckmb, troponin trending up but ckmb percent nml. cont iv abx to cover aspiration. wean oxygen cont nebulizer rx dvt prophyaxis. PT. oob today. incentive spirometer. when stable will ask her environmental projects advisor opinion if ischemic w/up needed. ...elevation of enzymes could be from rhabdo or tachycardia. check echo. uptdateed . pain control. will need snf. (2) DM (diabetes mellitus) Status: Chronic Plan: ssi and resume meds as tolerated (3) PAD (peripheral artery disease) Status: Chronic (4) Hypomagnesemia Status: Acute (5) Hypopotassemia Status: Acute (6) Chronic combined systolic and diastolic heart failure Status: Chronic (7) Gastroesophageal reflux disease Status: Chronic (8) Post-polio syndrome Status: Chronic (9) Low back pain Status: Chronic (10) Incontinence in female Status: Chronic (11) Peripheral neuropathy Status: Chronic (12) Depression Status: Chronic Problem Qualifiers (1) DM (diabetes mellitus): Qualified Code: E11.8 - Type 2 diabetes mellitus with complication, without long-term current use of insulin (2) Gastroesophageal reflux disease: Qualified Code: K21.9 - Gastroesophageal reflux disease, esophagitis presence not specified (3) Low back pain: Qualified Code: M54.5 - Chronic bilateral low back pain without sciatica (4) Peripheral neuropathy: Qualified Code: G62.9 - Peripheral polyneuropathy (5) Depression: Qualified Code: F32.9 - Depression, unspecified depression type Jacoby Rodriguez MD Oct 18, 2016 10:54
[2016-10-18] MEDS: FLUTICASONE PROPIONATE 50 MCG/ACT 16 GM NASAL SPRAY EACH NARE SCH ×2 (12:38→20:19)
[2016-10-18] MEDS: AZITHROMYCIN INJ 500 MG in SODIUM CHLOR 0.9% 250 ML INJ 250 ML IV SCH (16:15)
[2016-10-18] MEDS: GLIMEPIRIDE 2 MG TAB PO SCH (16:57)
[2016-10-18] MEDS: LOPERAMIDE HCL 2 MG CAP PO PRN ×2 (18:35→23:49)
[2016-10-19] VITALS (10 sets, daily range): BP systolic 107–146; BP diastolic 50–61; PULSE 81–94; RESP 17–22; TEMP 96–98.1; O2SAT 94–96
[2016-10-19] MEDS: PIPERACIL-TAZO 4.5 GM PREMIX 100 ML IV SCH ×4 (03:58→20:49)
[2016-10-19] MEDS: CHLORHEXIDINE GLUCONATE 2 % 1 PACK (2 CLOTHS) TOP SCH (04:00)
[2016-10-19] MEDS: GLIMEPIRIDE 2 MG TAB PO SCH ×2 (06:02→17:48)
[2016-10-19] MEDS: HEPARIN SODIUM - SQ 10,000 UNITS/ML VIAL SQ SCH ×3 (06:02→22:58)
[2016-10-19] MEDS: INSULIN NovoLIN REGULAR SUPPLEMENTAL SCALE SQ SCH ×3 (06:02→17:49)
[2016-10-19 07:19] LABS: BICARBONATE 27.7 MEQ/L (21.0-32.0); POTASSIUM 3.5 MEQ/L (3.5-5.1)
[2016-10-19] MEDS: RESP: ALBUTEROL 2.5 MG/IPRATROPIUM 0.5 MG NEB (SCH) INH ×4 (07:53→20:24)
[2016-10-19] MEDS: RESP: BUDESONIDE 0.5 MG/2 ML NEB NEB SCH ×2 (07:53→20:24)
[2016-10-19] MEDS: RESP: ACETYLCYSTEINE 20% 30 ML NEB NEB SCH ×4 (08:00→20:24)
--- NOTE | 2016-10-19 09:12 | HHI.PR ---
Subjective Remarks c/o buttock pain right worse than left. Objective Vitals oriented no distress heart reg lung course bs ambrocio. abd s/nt ext no edema tender more over right buttock. no bruising or skin breakdown. no tenderness over hip joint. Vital Signs Date Time Temp Pulse Resp B/P Pulse Ox O2 Delivery O2 Flow Rate FiO2 10/19/16 08:40 98.1 88 22 146/50 94 10/19/16 07:53 96 Nasal Cannula 2.00 10/19/16 04:00 96.0 83 17 107/55 96 10/19/16 00:00 96.7 81 17 116/56 95 10/19/16 00:00 Nasal Cannula 2.00 10/18/16 23:54 93 Nasal Cannula 2.00 10/18/16 20:00 85 10/18/16 20:00 96.4 89 18 130/66 98 10/18/16 16:00 96.3 88 18 118/53 97 10/18/16 15:37 96 Nasal Cannula 3.00 10/18/16 12:00 96.9 92 22 133/77 95 10/18/16 10/18/16 10/19/16 15:00 23:00 07:00 Intake Total 840 ml 240 ml Balance 840 ml 240 ml Intake Oral 840 ml 240 ml # Voids 4 1 2 # Bowel Movements 1 1 2 Result Diagram: 10/15/16 0400 10/19/16 0610 Date of Insertion: Oct 12, 2016 Line: Central Venous Catheter Side: Right Location: Internal, Jugular A/P Problem List: (1) Acute hypoxemic respiratory failure Status: Acute Plan: Pt was performing aerobics in [facility] Pool. She tells me that she may have developed some chest pain as she did about 1 month prior during the class. She reports that she was trying to get to edge of pool and "sank". Can't recall anything after that and ? aspiration of pool water. reports suggest pt pulled from water and EMS found her to have respiratory arrest but no report of cardiac arrest or cpr. She had copious secretion in airway and was intubated in field. On arrival she was hypotensive requiring pressors. She was found to have right lung airspace dz more than left concerning for aspiration pneumonia. Her ekg showed sinus tach. Her ck, ckmb, troponin trending up but ckmb percent nml. cont iv abx to cover aspiration. wean oxygen cont nebulizer rx ..add mucomyst nebs and acapella. need to mobilize off back. discussed with RN and Resp Therapy dvt prophyaxis. PT. oob today. incentive spirometer. when stable will ask her crester opinion if ischemic w/up needed. ...elevation of enzymes could be from rhabdo or tachycardia. checked echo....ef 40-45%..but in 2012 her echo showed ef 35-40%. uptdated . pain control. will need snf. pelvic xray..pt probably has msk pain from being pulled out of the pool. (2) DM (diabetes mellitus) Status: Chronic Plan: ssi and resume meds as tolerated (3) PAD (peripheral artery disease) Status: Chronic (4) Hypomagnesemia Status: Acute (5) Hypopotassemia Status: Acute (6) Chronic combined systolic and diastolic heart failure Status: Chronic (7) Gastroesophageal reflux disease Status: Chronic (8) Post-polio syndrome Status: Chronic (9) Low back pain Status: Chronic (10) Incontinence in female Status: Chronic (11) Peripheral neuropathy Status: Chronic (12) Depression Status: Chronic Problem Qualifiers (1) DM (diabetes mellitus): Qualified Code: E11.8 - Type 2 diabetes mellitus with complication, without long-term current use of insulin (2) Gastroesophageal reflux disease: Qualified Code: K21.9 - Gastroesophageal reflux disease, esophagitis presence not specified (3) Low back pain: Qualified Code: M54.5 - Chronic bilateral low back pain without sciatica (4) Peripheral neuropathy: Qualified Code: G62.9 - Peripheral polyneuropathy (5) Depression: Qualified Code: F32.9 - Depression, unspecified depression type Jacoby Rodriguez MD Oct 19, 2016 09:12
[2016-10-19] MEDS ORDERED: POTASSIUM CHLORIDE 20 MEQ CONTROLLED RELEASE TAB PO ONE (09:15)
[2016-10-19] MEDS: SODIUM CHLORIDE 0.9% FLUSH 5 ML FLUSH IV FLUSH SCH ×2 (09:25→20:49)
[2016-10-19] MEDS: PANTOPRAZOLE SODIUM 40 MG VIAL IV SCH (09:25)
[2016-10-19] MEDS: INSULIN DETEMIR 100 UNITS/ML VIAL SQ SCH ×2 (09:26→20:50)
[2016-10-19] MEDS: ACETAMINOPHEN/HYDROcodone 325 MG/10 MG TAB PO PRN ×3 (09:28→22:52)
[2016-10-19] MEDS: ARIPiprazole 2 MG TAB PO SCH (09:28)
[2016-10-19] MEDS: ASPIRIN EC 81 MG TABEC PO SCH (09:28)
[2016-10-19] MEDS: guaiFENesin E.R. 600 MG TAB PO SCH ×2 (09:28→20:49)
[2016-10-19] MEDS: CLOPIDOGREL 75 MG TAB PO SCH (09:29)
[2016-10-19] MEDS: ESCITALOPRAM OXALATE 10 MG TAB PO SCH (09:29)
[2016-10-19] MEDS: OXYBUTYNIN CHLORIDE 5 MG TAB PO SCH (09:29)
[2016-10-19] MEDS: ARTIFICIAL TEARS OPTH SOLN 15 ML BTL EACH EYE SCH ×3 (09:36→17:48)
[2016-10-19] MEDS: GABAPENTIN 300 MG CAP PO SCH ×2 (09:36→20:49)
[2016-10-19] MEDS: FLUTICASONE PROPIONATE 50 MCG/ACT 16 GM NASAL SPRAY EACH NARE SCH ×2 (09:36→20:49)
[2016-10-19] MEDS: TOBRAMYCIN 0.3%/DEXAMETHASONE 0.1% OPHT SUSP 5 ML BTL EACH EYE SCH ×3 (09:36→17:48)
--- NOTE | 2016-10-19 10:07 | RADRPT ---
EXAM DATE/TIME: 10/19/2016 08:40 [facility] COMPARISON: No previous studies available for comparison. INDICATIONS : Pelvic pain after a fall. MEDICAL HISTORY : None. SURGICAL HISTORY : Left hip. ENCOUNTER: Subsequent ACUITY: 1 week PAIN SCORE: 10/10 LOCATION: Bilateral Pelvis/Backside. FINDINGS: Posterior previous surgery is seen about the left hip. Moderate vascular calcifications are noted wi th arterial stents evident. Alignment is anatomic. Fracture is not appreciated. CONCLUSION: Negative for fracture. Evidence of previous surgery on the left. Gregory Nava MD FACR on October 19, 2016 at 10:05 Board Certified Radiologist. This report was verified electronically.
[2016-10-19] MEDS: NAPROXEN 500 MG TAB PO SCH ×2 (12:24→20:49)
[2016-10-19] MEDS: AZITHROMYCIN INJ 500 MG in SODIUM CHLOR 0.9% 250 ML INJ 250 ML IV SCH (15:40)
[2016-10-19] MEDS: LOPERAMIDE HCL 2 MG CAP PO PRN ×2 (15:40→22:51)
[2016-10-20] VITALS (10 sets, daily range): BP systolic 108–144; BP diastolic 44–77; PULSE 83–103; RESP 17–18; TEMP 95.9–97.3; O2SAT 92–98
[2016-10-20] MEDS: RESP: ACETYLCYSTEINE 20% 30 ML NEB NEB SCH ×6 (00:20→19:32)
[2016-10-20] MEDS: RESP: ALBUTEROL 2.5 MG/IPRATROPIUM 0.5 MG NEB (SCH) INH ×3 (00:20→08:23)
[2016-10-20] MEDS: PIPERACIL-TAZO 4.5 GM PREMIX 100 ML IV SCH ×4 (03:29→21:41)
[2016-10-20] MEDS: CHLORHEXIDINE GLUCONATE 2 % 1 PACK (2 CLOTHS) TOP SCH (03:38)
[2016-10-20] MEDS: HEPARIN SODIUM - SQ 10,000 UNITS/ML VIAL SQ SCH ×3 (06:19→21:39)
[2016-10-20] MEDS: INSULIN NovoLIN REGULAR SUPPLEMENTAL SCALE SQ SCH ×5 (06:19→21:56)
[2016-10-20] MEDS: GLIMEPIRIDE 2 MG TAB PO SCH ×2 (06:19→17:36)
[2016-10-20] MEDS: RESP: BUDESONIDE 0.5 MG/2 ML NEB NEB SCH ×2 (08:23→19:33)
[2016-10-20] MEDS ORDERED: POTASSIUM CHLORIDE 20 MEQ CONTROLLED RELEASE TAB PO ONE (09:00)
[2016-10-20] MEDS ORDERED: FUROSEMIDE 20 MG/2 ML VIAL IV PUSH ONE (09:00)
[2016-10-20] MEDS ORDERED: LOPERAMIDE HCL 2 MG CAP PO ONE (09:00)
[2016-10-20] MEDS: CLOPIDOGREL 75 MG TAB PO SCH (09:06)
[2016-10-20] MEDS: ARIPiprazole 2 MG TAB PO SCH (09:06)
[2016-10-20] MEDS: INSULIN DETEMIR 100 UNITS/ML VIAL SQ SCH ×2 (09:07→21:39)
[2016-10-20] MEDS: GABAPENTIN 300 MG CAP PO SCH ×2 (09:07→21:40)
[2016-10-20] MEDS: ASPIRIN EC 81 MG TABEC PO SCH (09:07)
[2016-10-20] MEDS: ESCITALOPRAM OXALATE 10 MG TAB PO SCH (09:07)
[2016-10-20] MEDS: NAPROXEN 500 MG TAB PO SCH (09:07)
[2016-10-20] MEDS: OXYBUTYNIN CHLORIDE 5 MG TAB PO SCH (09:07)
[2016-10-20] MEDS: guaiFENesin E.R. 600 MG TAB PO SCH ×2 (09:07→21:00)
[2016-10-20] MEDS: SODIUM CHLORIDE 0.9% FLUSH 5 ML FLUSH IV FLUSH SCH ×2 (09:08→21:40)
[2016-10-20] MEDS: PANTOPRAZOLE SODIUM 40 MG VIAL IV SCH (09:09)
[2016-10-20] MEDS: TOBRAMYCIN 0.3%/DEXAMETHASONE 0.1% OPHT SUSP 5 ML BTL EACH EYE SCH ×3 (09:21→17:49)
[2016-10-20] MEDS: ARTIFICIAL TEARS OPTH SOLN 15 ML BTL EACH EYE SCH ×3 (09:22→17:49)
[2016-10-20] MEDS: FLUTICASONE PROPIONATE 50 MCG/ACT 16 GM NASAL SPRAY EACH NARE SCH ×2 (09:22→21:42)
[2016-10-20] MEDS: RESP: ALBUTEROL 2.5 MG/IPRATROPIUM 0.5 MG NEB (PRN) INH ×3 (11:28→19:33)
[2016-10-20] MEDS: ACETAMINOPHEN/HYDROcodone 325 MG/10 MG TAB PO PRN ×3 (11:52→22:36)
--- NOTE | 2016-10-20 17:24 | HHI.PR ---
Subjective Remarks still sob/congested diarrhea Objective Vitals heart reg lung diminished bases abd s/nt ext no edema Vital Signs Date Time Temp Pulse Resp B/P Pulse Ox O2 Delivery O2 Flow Rate FiO2 10/20/16 16:25 97.0 91 18 108/44 98 10/20/16 12:19 96.1 97 18 120/57 96 10/20/16 08:30 92 Nasal Cannula 2.00 10/20/16 08:28 97.3 93 18 144/60 97 10/20/16 08:23 92 Nasal Cannula 2.00 10/20/16 08:00 Nasal Cannula 2.00 10/20/16 07:48 103 10/20/16 04:00 95.9 83 17 142/77 97 10/20/16 00:00 97.1 86 17 133/52 97 10/19/16 21:00 95 Nasal Cannula 2.00 10/19/16 20:26 96 Nasal Cannula 2.00 10/19/16 20:15 93 10/19/16 20:00 96.3 94 18 130/50 95 10/19/16 10/19/16 10/20/16 15:00 23:00 07:00 Intake Total 600 ml 720 ml 240 ml Balance 600 ml 720 ml 240 ml Intake Oral 600 ml 720 ml 240 ml # Voids 3 3 2 # Bowel Movements 2 3 2 Result Diagram: 10/19/1610 Date of Insertion: Oct 12, 2016 Line: Central Venous Catheter Side: Right Location: Internal, Jugular A/P Problem List: (1) Acute hypoxemic respiratory failure Status: Acute Plan: Pt was performing aerobics in [facility] Pool. She tells me that she may have developed some chest pain as she did about 1 month prior during the class. She reports that she was trying to get to edge of pool and "sank". Can't recall anything after that and ? aspiration of pool water. reports suggest pt pulled from water and EMS found her to have respiratory arrest but no report of cardiac arrest or cpr. She had copious secretion in airway and was intubated in field. On arrival she was hypotensive requiring pressors. She was found to have right lung airspace dz more than left concerning for aspiration pneumonia. Her ekg showed sinus tach. Her ck, ckmb, troponin trending up but ckmb percent nml. buttock pain seems msk. cont iv abx to cover aspiration. wean oxygen cont nebulizer rx ..added mucomyst nebs and acapella. need to mobilize off back. discussed with RN and Resp Therapy dvt prophyaxis. PT. oob today. incentive spirometer. when stable will ask her tip banding machine operator opinion if ischemic w/up needed. ...elevation of enzymes could be from rhabdo or tachycardia. checked echo....ef 40-45%..but in 2012 her echo showed ef 35-40%. pain control. will need snf. today pt still seems to struggle in clearing the lung congestion. get CT chest for evaluation. dose lasix. If worsening will consult pulmonary. (2) DM (diabetes mellitus) Status: Chronic Plan: ssi and resume meds as tolerated (3) PAD (peripheral artery disease) Status: Chronic (4) Hypomagnesemia Status: Acute (5) Hypopotassemia Status: Acute (6) Chronic combined systolic and diastolic heart failure Status: Chronic (7) Gastroesophageal reflux disease Status: Chronic (8) Post-polio syndrome Status: Chronic (9) Low back pain Status: Chronic (10) Incontinence in female Status: Chronic (11) Peripheral neuropathy Status: Chronic (12) Depression Status: Chronic Problem Qualifiers (1) DM (diabetes mellitus): Qualified Code: E11.8 - Type 2 diabetes mellitus with complication, without long-term current use of insulin (2) Gastroesophageal reflux disease: Qualified Code: K21.9 - Gastroesophageal reflux disease, esophagitis presence not specified (3) Low back pain: Qualified Code: M54.5 - Chronic bilateral low back pain without sciatica (4) Peripheral neuropathy: Qualified Code: G62.9 - Peripheral polyneuropathy (5) Depression: Qualified Code: F32.9 - Depression, unspecified depression type Jacoby Rodriguez MD Oct 20, 2016 17:24
[2016-10-20] MEDS: AZITHROMYCIN INJ 500 MG in SODIUM CHLOR 0.9% 250 ML INJ 250 ML IV SCH (17:35)
[2016-10-21] VITALS (9 sets, daily range): BP systolic 106–128; BP diastolic 42–88; PULSE 80–92; RESP 18–20; TEMP 97–98.6; O2SAT 95–98
[2016-10-21] MEDS: RESP: ACETYLCYSTEINE 20% 30 ML NEB NEB SCH ×6 (00:10→20:06)
[2016-10-21] MEDS: RESP: ALBUTEROL 2.5 MG/IPRATROPIUM 0.5 MG NEB (PRN) INH ×6 (00:11→20:06)
[2016-10-21] MEDS: PIPERACIL-TAZO 4.5 GM PREMIX 100 ML IV SCH ×4 (03:06→20:26)
[2016-10-21] MEDS: CHLORHEXIDINE GLUCONATE 2 % 1 PACK (2 CLOTHS) TOP SCH (04:00)
[2016-10-21] MEDS: GLIMEPIRIDE 2 MG TAB PO SCH ×3 (05:44→15:32)
[2016-10-21] MEDS: HEPARIN SODIUM - SQ 10,000 UNITS/ML VIAL SQ SCH ×3 (05:44→23:58)
[2016-10-21] MEDS: INSULIN NovoLIN REGULAR SUPPLEMENTAL SCALE SQ SCH ×4 (06:00→23:56)
[2016-10-21] MEDS: RESP: BUDESONIDE 0.5 MG/2 ML NEB NEB SCH ×2 (07:50→20:00)
[2016-10-21 08:02] LABS: BICARBONATE 28.2 MEQ/L (21.0-32.0); MAGNESIUM 1.9 MG/DL (1.5-2.5); POTASSIUM 3.7 MEQ/L (3.5-5.1)
[2016-10-21] MEDS: ASPIRIN EC 81 MG TABEC PO SCH (08:21)
[2016-10-21] MEDS: ARIPiprazole 2 MG TAB PO SCH (08:21)
[2016-10-21] MEDS: guaiFENesin E.R. 600 MG TAB PO SCH ×2 (08:21→20:32)
[2016-10-21] MEDS: CLOPIDOGREL 75 MG TAB PO SCH (08:21)
[2016-10-21] MEDS: OXYBUTYNIN CHLORIDE 5 MG TAB PO SCH (08:22)
[2016-10-21] MEDS: ESCITALOPRAM OXALATE 10 MG TAB PO SCH (08:22)
[2016-10-21] MEDS: GABAPENTIN 300 MG CAP PO SCH ×3 (08:22→20:37)
[2016-10-21] MEDS: PANTOPRAZOLE SODIUM 40 MG VIAL IV SCH (08:23)
[2016-10-21] MEDS: SODIUM CHLORIDE 0.9% FLUSH 5 ML FLUSH IV FLUSH SCH ×2 (08:23→20:32)
[2016-10-21] MEDS: INSULIN DETEMIR 100 UNITS/ML VIAL SQ SCH ×2 (08:23→20:33)
[2016-10-21] MEDS: TOBRAMYCIN 0.3%/DEXAMETHASONE 0.1% OPHT SUSP 5 ML BTL EACH EYE SCH ×3 (08:24→18:11)
[2016-10-21] MEDS: FLUTICASONE PROPIONATE 50 MCG/ACT 16 GM NASAL SPRAY EACH NARE SCH ×2 (08:24→20:26)
[2016-10-21] MEDS: ARTIFICIAL TEARS OPTH SOLN 15 ML BTL EACH EYE SCH ×3 (08:24→18:11)
--- NOTE | 2016-10-21 08:27 | HHI.PR ---
Subjective Remarks looks more comfortable was oob yesterday. Objective Vitals heart reg lung diminished bases. scattered rhonci abd s/nt ext no edema Vital Signs Date Time Temp Pulse Resp B/P Pulse Ox O2 Delivery O2 Flow Rate FiO2 10/21/16 07:51 96 Nasal Cannula 3.00 10/21/16 05:18 98.6 80 18 106/88 95 10/21/16 00:39 97.4 80 18 112/42 96 10/20/16 23:47 16 10/20/16 22:30 Nasal Cannula 3.00 40 10/20/16 21:34 96.3 87 18 130/58 96 Arterial Line 10/20/16 19:33 98 Nasal Cannula 3.00 10/20/16 16:25 97.0 91 18 108/44 98 10/20/16 12:19 96.1 97 18 120/57 96 10/20/16 08:30 92 Nasal Cannula 2.00 10/20/16 08:28 97.3 93 18 144/60 97 10/20/16 10/20/16 10/21/16 14:59 22:59 06:59 Intake Total 480 ml 450 ml Balance 480 ml 450 ml Intake Oral 480 ml IV Total 450 ml # Voids 6 # Bowel Movements 4 Result Diagram: 10/21/16 0649 Date of Insertion: Oct 12, 2016 Line: Central Venous Catheter Side: Right Location: Internal, Jugular A/P Problem List: (1) Acute hypoxemic respiratory failure Status: Acute Plan: Pt was performing aerobics in [facility] Pool. She tells me that she may have developed some chest pain as she did about 1 month prior during the class. She reports that she was trying to get to edge of pool and "sank". Can't recall anything after that and ? aspiration of pool water. reports suggest pt pulled from water and EMS found her to have respiratory arrest but no report of cardiac arrest or cpr. She had copious secretion in airway and was intubated in field. On arrival she was hypotensive requiring pressors. She was found to have right lung airspace dz more than left concerning for aspiration pneumonia. Her ekg showed sinus tach. Her ck, ckmb, troponin trending up but ckmb percent nml. buttock pain seems msk. reports chronic diarrhea. c.diff neg. cont iv abx to cover aspiration. wean oxygen cont nebulizer rx ..added mucomyst nebs and acapella. need to mobilize off back. discussed with RN and Resp Therapy dvt prophyaxis. PT. oob today. incentive spirometer. when stable will ask her rn psychiatric opinion if ischemic w/up needed. ...elevation of enzymes could be from rhabdo or tachycardia. checked echo....ef 40-45%..but in 2012 her echo showed ef 35-40%. pain control. will need snf. looking at [place]. CT chest for re-evaluation still pending. If worsening will consult pulmonary. (2) DM (diabetes mellitus) Status: Chronic Plan: ssi and resume meds as tolerated (3) PAD (peripheral artery disease) Status: Chronic (4) Hypomagnesemia Status: Acute (5) Hypopotassemia Status: Acute (6) Chronic combined systolic and diastolic heart failure Status: Chronic (7) Gastroesophageal reflux disease Status: Chronic (8) Post-polio syndrome Status: Chronic (9) Low back pain Status: Chronic (10) Incontinence in female Status: Chronic (11) Peripheral neuropathy Status: Chronic (12) Depression Status: Chronic Problem Qualifiers (1) DM (diabetes mellitus): Qualified Code: E11.8 - Type 2 diabetes mellitus with complication, without long-term current use of insulin (2) Gastroesophageal reflux disease: Qualified Code: K21.9 - Gastroesophageal reflux disease, esophagitis presence not specified (3) Low back pain: Qualified Code: M54.5 - Chronic bilateral low back pain without sciatica (4) Peripheral neuropathy: Qualified Code: G62.9 - Peripheral polyneuropathy (5) Depression: Qualified Code: F32.9 - Depression, unspecified depression type Jacoby Rodriguez MD Oct 21, 2016 08:27
[2016-10-21] MEDS: ACETAMINOPHEN/HYDROcodone 325 MG/10 MG TAB PO PRN ×2 (08:41→15:32)
--- NOTE | 2016-10-21 12:22 | RADRPT ---
EXAM DATE/TIME: 10/21/2016 12:03 [facility] COMPARISON: No previous studies available for comparison. INDICATIONS : Evaluate for pneumonia. RADIATION DOSE: 9.56 CTDIvol (mGy) MEDICAL HISTORY : Hypertension. Chronic obstructive pulmonary disease. SURGICAL HISTORY : None. ENCOUNTER: Initial ACUITY: 1 day PAIN SCALE: 0/10 LOCATION: Bilateral chest TECHNIQUE: Volumetric scanning of the chest was performed. Using automated exposure control and adjustment of t he mA and/or kV according to patient size, radiation dose was kept as low as reasonably achievable to obtain optimal diagnostic quality images. FINDINGS: LUNGS: There is central lobar emphysema bilaterally. There is some compressive and linear atelectasis in the posterior right lung base. A few mild scattered infiltrates are noted in the right upper lung. There is also a mild increase in the interstitial markings in the right upper lung. The left lung is gross ly clear. PLEURAE: There is a small right-sided pleural effusion. There is pleural thickening on the left. MEDIASTINUM: The heart and great vessels demonstrate no acute abnormality. There is no mediastinal or hilar lymph adenopathy. Atherosclerotic changes in the aorta. Coronary calcifications. AXILLAE: Unremarkable. MUSCULOSKELETAL: Primary degenerative changes. MISCELLANEOUS: There appears to be bilateral cysts versus adrenal adenomas, left greater than right. The right one m easures 2.6 cm, the left one measures 3.0 cm. CONCLUSION: 1. Central lobar emphysema with some faint mild scattered infiltrates in the right upper lung along w ith some interstitial changes. This is suggestive of an inflammatory process such as pneumonia. 2. Linear atelectasis in the posterior right lung base with a small right pleural effusion. 3. The left lung is grossly clear. 4. Bilateral adrenal adenomas versus cysts. Jose Berrios MD on October 21, 2016 at 12:16 Board Certified Radiologist. This report was verified electronically.
[2016-10-21] MEDS: AZITHROMYCIN INJ 500 MG in SODIUM CHLOR 0.9% 250 ML INJ 250 ML IV SCH (15:31)
[2016-10-22] VITALS (8 sets, daily range): BP systolic 117–159; BP diastolic 50–60; PULSE 80–94; RESP 19–20; TEMP 96.3–98; O2SAT 94–98
[2016-10-22] MEDS: RESP: ALBUTEROL 2.5 MG/IPRATROPIUM 0.5 MG NEB (PRN) INH ×6 (00:33→23:48)
[2016-10-22] MEDS: ACETAMINOPHEN/HYDROcodone 325 MG/10 MG TAB PO PRN ×3 (03:19→17:45)
[2016-10-22] MEDS: PIPERACIL-TAZO 4.5 GM PREMIX 100 ML IV SCH ×4 (03:19→21:00)
[2016-10-22] MEDS: CHLORHEXIDINE GLUCONATE 2 % 1 PACK (2 CLOTHS) TOP SCH (03:53)
[2016-10-22] MEDS: RESP: ACETYLCYSTEINE 20% 30 ML NEB NEB SCH ×7 (04:00→23:48)
[2016-10-22] MEDS: INSULIN NovoLIN REGULAR SUPPLEMENTAL SCALE SQ SCH ×3 (05:39→17:51)
[2016-10-22] MEDS: HEPARIN SODIUM - SQ 10,000 UNITS/ML VIAL SQ SCH ×3 (06:25→23:00)
[2016-10-22] MEDS: GLIMEPIRIDE 2 MG TAB PO SCH ×2 (06:25→16:15)
[2016-10-22] MEDS: RESP: BUDESONIDE 0.5 MG/2 ML NEB NEB SCH ×2 (08:36→19:34)
[2016-10-22] MEDS: guaiFENesin E.R. 600 MG TAB PO SCH ×2 (09:47→21:00)
[2016-10-22] MEDS: ARIPiprazole 2 MG TAB PO SCH (09:47)
[2016-10-22] MEDS: OXYBUTYNIN CHLORIDE 5 MG TAB PO SCH (09:47)
[2016-10-22] MEDS: ASPIRIN EC 81 MG TABEC PO SCH (09:48)
[2016-10-22] MEDS: ESCITALOPRAM OXALATE 10 MG TAB PO SCH (09:49)
[2016-10-22] MEDS: CLOPIDOGREL 75 MG TAB PO SCH (09:49)
[2016-10-22] MEDS: PANTOPRAZOLE SODIUM 40 MG VIAL IV SCH (09:51)
[2016-10-22] MEDS: INSULIN DETEMIR 100 UNITS/ML VIAL SQ SCH ×2 (09:52→21:00)
--- NOTE | 2016-10-22 09:54 | HHI.PR ---
Subjective Remarks Pt feels that her cough is improving. She still periodically feels SOB but unclear if this is anxiety related or not. Pt had one loose BM this morning. Pt reports a hx of chronic diarrhea. She typically takes 2-4 Imodium per day to try to keep the diarrhea better controlled as she has fecal incontinence related to this. Afebrile. Objective Vitals Vital Signs Date Time Temp Pulse Resp B/P Pulse Ox O2 Delivery O2 Flow Rate FiO2 10/22/16 08:38 96 Nasal Cannula 2.00 10/21/16 23:40 97.0 80 18 123/83 96 10/21/16 20:30 98 Nasal Cannula 2.00 10/21/16 20:06 98 Nasal Cannula 3.00 10/21/16 19:30 97.4 92 20 127/57 96 10/21/16 16:00 97.4 84 18 128/69 97 10/21/16 12:00 98.6 88 20 123/72 96 10/21/16 09:41 20 10/21/16 10/21/16 10/22/16 15:00 23:00 07:00 Intake Total 600 ml 70 ml 550 ml Output Total 400 ml Balance 200 ml 70 ml 550 ml Intake Oral 600 ml 480 ml IV Total 70 ml 70 ml Output Urine Total 400 ml # Voids 1 1 5 # Bowel Movements 2 1 1 Result Diagram: 10/21/16 0649 Other Results Laboratory Tests Test 10/21/16 06:49 Sodium Level 145 MEQ/L Potassium Level 3.7 MEQ/L Chloride Level 109 MEQ/L Carbon Dioxide Level 28.2 MEQ/L Anion Gap 8 MEQ/L Blood Urea Nitrogen 19 MG/DL Creatinine 0.69 MG/DL Estimat Glomerular Filtration 83 ML/MIN Rate Random Glucose 78 MG/DL Calcium Level 8.7 MG/DL Magnesium Level 1.9 MG/DL Imaging Last Impressions Chest CT 10/21/16 0000 Signed Impressions: Service Date/Time: Friday, October 21, 2016 12:03 - CONCLUSION: 1. Central lobar emphysema with some faint mild scattered infiltrates in the right upper lung along with some interstitial changes. This is suggestive of an inflammatory process such as pneumonia. 2. Linear atelectasis in the posterior right lung base with a small right pleural effusion. 3. The left lung is grossly clear. 4. Bilateral adrenal adenomas versus cysts. Jose Berrios MD Pelvis X-Ray 10/19/16 0000 Signed Impressions: Service Date/Time: Wednesday, October 19, 2016 08:40 - CONCLUSION: Negative for fracture. Evidence of previous surgery on the left. Gregory Nava MD FACR Chest X-Ray 10/18/16 0600 Signed Impressions: Service Date/Time: October 04:50 - CONCLUSION: Increasing airspace disease on the right. Akhil Weaver MD Liver Ultrasound 10/15/16 0000 Signed Impressions: Service Date/Time: Saturday, October 15, 2016 08:27 - CONCLUSION: Mildly echogenic liver without intrahepatic biliary duct dilatation otherwise. Gregory Nava MD FACR CT Angiography 10/12/16 1147 Signed Impressions: Service Date/Time: Wednesday, October 12, 2016 13:53 - CONCLUSION: 1. Patchy air space disease is both lungs much worse on the right than the left suspicious for an inflammatory process. 2. There is no evidence for central pulmonary emboli. Gregory Nava MD FACR Lower Extremity Ultrasound 10/12/16 0000 Signed Impressions: Service Date/Time: Wednesday, October 12, 2016 22:15 - CONCLUSION: No DVT is identified within either lower extremity. Anup De La Rosa MD Head CT 10/12/16 0000 Signed Impressions: Service Date/Time: Wednesday, October 12, 2016 13:44 - CONCLUSION: Negative for an acute process Gregory Nava MD FACR Objective Remarks General: NAD, AAOx3 Chest: Scattered rhonchi Cardiac: Regular Abd: +BS, soft ND/NT Ext: No edema Date of Insertion: Oct 12, 2016 Line: Central Venous Catheter Side: Right Location: Internal, Jugular A/P Problem List: (1) Acute hypoxemic respiratory failure Status: Acute Plan: - Pt was performing aerobics in [facility] Pool. She tells me that she may have developed some chest pain as she did about 1 month prior during the class. She reports that she was trying to get to edge of pool and "sank". Can't recall anything after that and ? aspiration of pool water. Reports suggest pt was pulled from water and EMS found her to have respiratory arrest but no report of cardiac arrest or CPR. She had copious secretion in airway and was intubated in field. On arrival she was hypotensive requiring pressors. - She was found to have right lung airspace dz more than left concerning for aspiration pneumonia. - Her EKG showed sinus tach. Her CK, CK-MB, troponin trended up (0.03-->0.62--> 0.72-->0.23-->0.11) but CK-MB percent remained nml. - Pt buttock pain seems to be msk. - She reports chronic diarrhea. C.diff neg. Imodium PRN - Pt is on Azithromycin and Zosyn IV to cover aspiration. - Wean oxygen - Cont nebulizer rx --> Duonebs, Mucomyst, Budesonide - IS and Acapella. - Pt needs to mobilize off her back - Repeat Chest CT (10/21) --> Central lobar emphysema with some faint mild scattered infiltrates in the right upper lung along with some interstitial changes. Linear atelectasis in the posterior right lung base with a small right pleural effusion. The left lung is grossly clear. This does appear to be improving compared to previous CTA images. - PT daily. 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 The elevation of CE could be from rhabdo or tachycardia. 2D echo --> Estimated EF 40-45%, but in 2012 her echo showed EF 35-40%. - Pt will need SNF at the end of this hospitalization. (2) DM (diabetes mellitus) Status: Chronic Plan: - Amaryl 4mg BID - NovoLog SSI - Accu checks (3) PAD (peripheral artery disease) Status: Chronic (4) Hypomagnesemia Status: Acute (5) Hypopotassemia Status: Acute (6) Chronic combined systolic and diastolic heart failure Status: Chronic (7) Gastroesophageal reflux disease Status: Chronic (8) Post-polio syndrome Status: Chronic (9) Low back pain Status: Chronic (10) Incontinence in female Status: Chronic (11) Peripheral neuropathy Status: Chronic (12) Depression Status: Chronic Assessment and Plan Patient examined. Assessment and plan formulated with Rebecca ALEGRIA I agree with the above. Problem Qualifiers (1) DM (diabetes mellitus): Qualified Code: E11.8 - Type 2 diabetes mellitus with complication, without long-term current use of insulin (2) Gastroesophageal reflux disease: Qualified Code: K21.9 - Gastroesophageal reflux disease, esophagitis presence not specified (3) Low back pain: Qualified Code: M54.5 - Chronic bilateral low back pain without sciatica (4) Peripheral neuropathy: Qualified Code: G62.9 - Peripheral polyneuropathy (5) Depression: Qualified Code: F32.9 - Depression, unspecified depression type Rebecca Hurt Oct 22, 2016 09:54 Zach Gaspar DO Oct 23, 2016 09:10
[2016-10-22] MEDS: SODIUM CHLORIDE 0.9% FLUSH 5 ML FLUSH IV FLUSH SCH ×2 (09:55→21:00)
[2016-10-22] MEDS: ARTIFICIAL TEARS OPTH SOLN 15 ML BTL EACH EYE SCH ×3 (09:55→17:52)
[2016-10-22] MEDS: FLUTICASONE PROPIONATE 50 MCG/ACT 16 GM NASAL SPRAY EACH NARE SCH ×2 (09:55→21:00)
[2016-10-22] MEDS: TOBRAMYCIN 0.3%/DEXAMETHASONE 0.1% OPHT SUSP 5 ML BTL EACH EYE SCH ×3 (09:55→17:52)
[2016-10-22] MEDS: GABAPENTIN 300 MG CAP PO SCH ×2 (10:01→21:00)
--- NOTE | 2016-10-22 13:50 | MB ---
cc: CHIRAG GUERRA MD DATE OF CONSULTATION: 10/22/2016 HISTORY OF PRESENT ILLNESS This is a 71-year-old woman who was admitted to the hospital after having a syncopal episode. She has a history of coronary disease as well as peripheral vascular disease. She was working out doing water aerobics and was carrying a noodle and not sure whether she slipped or passed out. In any event she was felt to have a syncopal episode and was pulled from the pool by the jointer machine. She was breathing agonally and not responding and was intubated in the field. She apparently had a good pulse and blood pressure. Multiple secretions were present. Since that time she was admitted to the hospital and felt to have some aspiration. She notes that she has had coronary disease and had a non-STEMI approximately one year ago. At that time Dr. Raines attempted angioplasty and from records was unsuccessful, apparently had some collateral circulation. Since that time she has had shortness of breath and chest pain whenever she performs her water aerobics, although she has not noted chest pain at any other time. She underwent a peripheral vascular procedure by Dr. Song in December of this year. There has been no chest pain at rest. She denies any palpitations and no other syncopal episodes have been present. PAST MEDICAL HISTORY 1. Polio. 2. Type 2 diabetes. 3. Hyperlipidemia. MEDICATIONS Medications at home included: 1. Tradjenta. 2. Metformin. 3. Glimepiride. 4. Lasix. 5. Lexapro. 6. Plavix. 7. Atorvastatin. ALLERGIES 1. SSRIs. 2. MORPHINE. PHYSICAL EXAMINATION GENERAL: On physical exam she is awake and alert. She is in no acute distress. VITAL SIGNS: Her blood pressure is 120/70, pulse 70 and regular. NECK: There is no neck vein distension. LUNGS: Clear. CARDIOVASCULAR: Regular rate and rhythm. There is no significant murmur. No gallop is noted. EXTREMITIES: No edema. LABORATORY Troponins are mildly elevated at 0.28. EKG Electrocardiogram demonstrated no acute ST or T-wave changes on admission. ASSESSMENT AND PLAN The patient has had ongoing exertional chest discomfort with unexplained syncope. Do think she would benefit from having a cardiac catheterization. I have spoken with Dr. Song and he will put her on the schedule for tomorrow. The patient understands. MD ROCKY Haskins/DEMETRIO /1:26 PM /1:41 PM
[2016-10-22 14:33] LABS: HEMATOCRIT 32.5 % (35.0-46.0); MEAN CELL VOLUME 85.1 FL (80.0-100.0); MEAN CORPUSCULAR HEMOGLOBIN 27.6 PG (27.0-34.0); MEAN CORPUSCULAR HGB CONC 32.4 % (32.0-36.0); PLATELET COUNT 353 TH/MM3 (150-450); RED BLOOD COUNT 3.82 MIL/MM3 (4.00-5.30); RED CELL DISTRIBUTION WIDTH 15.3 % (11.6-17.2); REVIEW FLAG FINAL; WHITE BLOOD COUNT 7.5 TH/MM3 (4.0-11.0)
[2016-10-22] MEDS: AZITHROMYCIN INJ 500 MG in SODIUM CHLOR 0.9% 250 ML INJ 250 ML IV SCH (16:15)
[2016-10-22] MEDS: FERROUS SULFATE 325 MG (65 MG ELEMENTAL IRON) TAB PO SCH (21:00)
[2016-10-23] VITALS (9 sets, daily range): BP systolic 80–165; BP diastolic 59–81; PULSE 86–99; RESP 16–22; TEMP 96.4–98.7; O2SAT 88–98
[2016-10-23] MEDS: PIPERACIL-TAZO 4.5 GM PREMIX 100 ML IV SCH ×2 (03:00→09:00)
[2016-10-23] MEDS: RESP: ACETYLCYSTEINE 20% 30 ML NEB NEB SCH (04:00)
[2016-10-23] MEDS: CHLORHEXIDINE GLUCONATE 2 % 1 PACK (2 CLOTHS) TOP SCH (04:00)
[2016-10-23] MEDS ORDERED: EPINEPHrine HCL (1:10,000) 1 MG/10 ML SYRINGE IV ONE (05:00)
[2016-10-23] MEDS ORDERED: NITROGLYCERIN 0.4 MG SL 25 TABS/BTL SL ONE (05:49)
[2016-10-23] MEDS: INSULIN NovoLIN REGULAR SUPPLEMENTAL SCALE SQ SCH ×5 (06:00→23:50)
[2016-10-23] MEDS ORDERED: NITROGLYCERIN 0.4 MG SL 25 TABS/BTL SL PRN (06:00)
--- NOTE | 2016-10-23 06:21 | RADRPT ---
EXAM DATE/TIME: 10/23/2016 05:49 [facility] COMPARISON: CHEST SINGLE AP, October 18, 2016, 4:50. INDICATIONS : Chest pain. MEDICAL HISTORY : Hypertension. Chronic obstructive pulmonary disease. SURGICAL HISTORY : None. ENCOUNTER: Subsequent ACUITY: 3 days PAIN SCORE: Non-responsive. LOCATION: Bilateral chest FINDINGS: The cardiac silhouette is enlarged in transverse diameter. There is prominence of the aortic knob is with calcification characteristic of atherosclerotic vascular disease. There are findings of congesti ve heart failure with interstitial and alveolar opacity bilaterally. Small bilateral pleural effusion s are identified. CONCLUSION: 1. Cardiomegaly and findings of congestive heart failure. This is new when compared with the prior ex am. Hilton Sheldon MD on October 23, 2016 at 6:19 Board Certified Radiologist. This report was verified electronically.
[2016-10-23] MEDS: HEPARIN SODIUM - SQ 10,000 UNITS/ML VIAL SQ SCH (07:00)
[2016-10-23] MEDS: GLIMEPIRIDE 2 MG TAB PO SCH ×2 (07:00→17:47)
[2016-10-23] MEDS: RESP: BUDESONIDE 0.5 MG/2 ML NEB NEB SCH (08:00)
--- NOTE | 2016-10-23 08:32 | PD.CARD.PN ---
Subjective Subjective Remarks denies chest pain Objective Vital Signs / I&O Vital Signs Date Time Temp Pulse Resp B/P Pulse Ox O2 Delivery O2 Flow Rate FiO2 10/23/16 04:00 97.4 99 19 154/68 95 10/23/16 00:00 96.4 91 18 148/64 97 10/22/16 23:49 97 Nasal Cannula 2.00 10/22/16 23:15 Nasal Cannula 2.00 40 10/22/16 21:51 84 10/22/16 20:00 96.8 94 19 140/59 98 10/22/16 16:00 96.3 94 20 119/58 94 10/22/16 15:15 98 Nasal Cannula 2.00 10/22/16 12:00 98.0 89 20 117/50 94 10/22/16 08:45 98 Nasal Cannula 2.00 10/22/16 08:38 96 Nasal Cannula 2.00 I/O 10/22/16 10/22/16 10/22/16 10/23/16 10/23/16 10/23/16 07:00 15:00 23:00 07:00 15:00 23:00 Intake Total 550 ml 960 ml 240 ml 0 ml Balance 550 ml 960 ml 240 ml 0 ml Intake Oral 480 ml 960 ml 240 ml 0 ml IV Total 70 ml # Voids 5 3 2 5 # Bowel Movements 1 2 3 Physical Exam GENERAL: Well-nourished, well-developed patient in no apparent distress. NECK: No JVD. No carotid bruit. CARDIOVASCULAR: Regular rate and rhythm. S1/S2 no murmur, rub, or gallop. RESPIRATORY: No accessory muscle use. Clear to auscultation. Breath sounds equal bilaterally. GASTROINTESTINAL: Abdomen soft, non-tender, nondistended. MUSCULOSKELETAL: Extremities without clubbing, cyanosis, or edema. Laboratory Laboratory Tests Test 10/22/16 14:10 White Blood Count 7.5 TH/MM3 Red Blood Count 3.82 MIL/MM3 Hemoglobin 10.5 GM/DL Hematocrit 32.5 % Mean Corpuscular Volume 85.1 FL Mean Corpuscular Hemoglobin 27.6 PG Mean Corpuscular Hemoglobin 32.4 % Concent Red Cell Distribution Width 15.3 % Platelet Count 353 TH/MM3 Mean Platelet Volume 8.7 FL Blood Type A POSITIVE Antibody Screen NEGATIVE Blood Bank Comment Assessment and Plan Problem List: (1) NSTEMI (non-ST elevated myocardial infarction) Assessment and Plan Plan is for left heart cath today. Further recommendation will depend on that outcome HTN add lisinopril 10 mg daily Ayo Mitchell Oct 23, 2016 08:32
[2016-10-23] MEDS: FLUTICASONE PROPIONATE 50 MCG/ACT 16 GM NASAL SPRAY EACH NARE SCH ×2 (09:00→22:02)
[2016-10-23] MEDS: OXYBUTYNIN CHLORIDE 5 MG TAB PO SCH (09:00)
[2016-10-23] MEDS: ARTIFICIAL TEARS OPTH SOLN 15 ML BTL EACH EYE SCH ×2 (09:00→18:02)
[2016-10-23] MEDS: FERROUS SULFATE 325 MG (65 MG ELEMENTAL IRON) TAB PO SCH ×3 (09:00→21:54)
[2016-10-23] MEDS: ESCITALOPRAM OXALATE 10 MG TAB PO SCH ×2 (09:00→14:06)
[2016-10-23] MEDS: ARIPiprazole 2 MG TAB PO SCH ×2 (09:00→15:22)
[2016-10-23] MEDS: TOBRAMYCIN 0.3%/DEXAMETHASONE 0.1% OPHT SUSP 5 ML BTL EACH EYE SCH ×2 (09:00→18:02)
[2016-10-23] MEDS: CLOPIDOGREL 75 MG TAB PO SCH ×2 (09:00→14:06)
[2016-10-23] MEDS: GABAPENTIN 300 MG CAP PO SCH ×4 (09:00→21:54)
[2016-10-23] MEDS: INSULIN DETEMIR 100 UNITS/ML VIAL SQ SCH ×2 (09:00→21:57)
[2016-10-23] MEDS: guaiFENesin E.R. 600 MG TAB PO SCH ×2 (09:00→22:02)
[2016-10-23] MEDS: ASPIRIN EC 81 MG TABEC PO SCH ×2 (09:00→14:06)
[2016-10-23] MEDS: LISINOPRIL 10 MG TAB PO SCH ×2 (09:00→14:07)
[2016-10-23] MEDS: SODIUM CHLORIDE 0.9% FLUSH 5 ML FLUSH IV FLUSH SCH (09:00)
[2016-10-23] MEDS: PANTOPRAZOLE SODIUM 40 MG VIAL IV SCH ×2 (09:00→14:06)
[2016-10-23] MEDS ORDERED: HEPARIN-NS/PF INJ 500 ML ONE ×2 (09:03→10:20)
[2016-10-23] MEDS ORDERED: MIDAZOLAM HCL 2 MG/2 ML VIAL ONE ×4 (09:03→10:45)
[2016-10-23] MEDS ORDERED: HEPARIN SODIUM - IV 10,000 UNITS/10 ML VIAL ONE (09:04)
--- NOTE | 2016-10-23 09:24 | HHI.PR ---
Subjective Remarks No new complaints. Objective Vitals Vital Signs Date Time Temp Pulse Resp B/P Pulse Ox O2 Delivery O2 Flow Rate FiO2 10/23/16 04:00 97.4 99 19 154/68 95 10/23/16 00:00 96.4 91 18 148/64 97 10/22/16 23:49 97 Nasal Cannula 2.00 10/22/16 23:15 Nasal Cannula 2.00 40 10/22/16 21:51 84 10/22/16 20:00 96.8 94 19 140/59 98 10/22/16 16:00 96.3 94 20 119/58 94 10/22/16 15:15 98 Nasal Cannula 2.00 10/22/16 12:00 98.0 89 20 117/50 94 10/22/16 10/22/16 10/23/16 15:00 23:00 07:00 Intake Total 960 ml 240 ml 0 ml Balance 960 ml 240 ml 0 ml Intake Oral 960 ml 240 ml 0 ml # Voids 3 2 5 # Bowel Movements 2 3 Result Diagram: 10/22/16 1410 10/21/16 0649 Imaging Last Impressions Chest CT 10/21/16 0000 Signed Impressions: Service Date/Time: Friday, October 21, 2016 12:03 - CONCLUSION: 1. Central lobar emphysema with some faint mild scattered infiltrates in the right upper lung along with some interstitial changes. This is suggestive of an inflammatory process such as pneumonia. 2. Linear atelectasis in the posterior right lung base with a small right pleural effusion. 3. The left lung is grossly clear. 4. Bilateral adrenal adenomas versus cysts. Jose Berrios MD Pelvis X-Ray 10/19/16 0000 Signed Impressions: Service Date/Time: Wednesday, October 19, 2016 08:40 - CONCLUSION: Negative for fracture. Evidence of previous surgery on the left. Gregory Nava MD FACR Chest X-Ray 10/18/16 0600 Signed Impressions: Service Date/Time: October 04:50 - CONCLUSION: Increasing airspace disease on the right. Akhil Weaver MD Liver Ultrasound 10/15/16 0000 Signed Impressions: Service Date/Time: Saturday, October 15, 2016 08:27 - CONCLUSION: Mildly echogenic liver without intrahepatic biliary duct dilatation otherwise. Gregory Nava MD FACR CT Angiography 10/12/16 1147 Signed Impressions: Service Date/Time: Wednesday, October 12, 2016 13:53 - CONCLUSION: 1. Patchy air space disease is both lungs much worse on the right than the left suspicious for an inflammatory process. 2. There is no evidence for central pulmonary emboli. Gregory Nava MD FACR Lower Extremity Ultrasound 10/12/16 0000 Signed Impressions: Service Date/Time: Wednesday, October 12, 2016 22:15 - CONCLUSION: No DVT is identified within either lower extremity. Anup De La Rosa MD Head CT 10/12/16 0000 Signed Impressions: Service Date/Time: Wednesday, October 12, 2016 13:44 - CONCLUSION: Negative for an acute process Gregory Nava MD FACR Objective Remarks General: NAD, AAOx3 Chest: Scattered rhonchi Cardiac: Regular Abd: +BS, soft ND/NT Ext: No edema Date of Insertion: Oct 12, 2016 Line: Central Venous Catheter Side: Right Location: Internal, Jugular A/P Problem List: (1) Acute hypoxemic respiratory failure Status: Acute Plan: - Pt was performing aerobics in [facility] Pool. She tells me that she may have developed some chest pain as she did about 1 month prior during the class. She reports that she was trying to get to edge of pool and "sank". Can't recall anything after that and ? aspiration of pool water. Reports suggest pt was pulled from water and EMS found her to have respiratory arrest but no report of cardiac arrest or CPR. She had copious secretion in airway and was intubated in field. On arrival she was hypotensive requiring pressors. - She was found to have right lung airspace dz more than left concerning for aspiration pneumonia. - Her EKG showed sinus tach. Her CK, CK-MB, troponin trended up (0.03-->0.62--> 0.72-->0.23-->0.11) but CK-MB percent remained nml. - Pt buttock pain seems to be msk. - She reports chronic diarrhea. C.diff neg. Imodium PRN - Azithromycin (10/12 - 10/22) - Zosyn (10/12 - 10/22) - Wean oxygen - Cont nebulizer rx --> Duonebs, Budesonide - IS and Acapella. - Repeat Chest CT (10/21) --> Central lobar emphysema with some faint mild scattered infiltrates in the right upper lung along with some interstitial changes. Linear atelectasis in the posterior right lung base with a small right pleural effusion. The left lung is grossly clear. This does appear to be improving compared to previous CTA images. - CXR (10/23/16) --> new bibasilar infiltrates c/w CHF - PT daily. 2D echo --> Estimated EF 40-45%, but in 2012 her echo showed EF 35-40%. - Pt to undergo LHC (10/23/16) with Dr. Song - Pt will need SNF at the end of this hospitalization. (2) DM (diabetes mellitus) Status: Chronic Plan: - Amaryl 4mg BID - NovoLog SSI - Accu checks (3) PAD (peripheral artery disease) Status: Chronic (4) Hypomagnesemia Status: Acute (5) Hypopotassemia Status: Acute (6) Chronic combined systolic and diastolic heart failure Status: Chronic (7) Gastroesophageal reflux disease Status: Chronic (8) Post-polio syndrome Status: Chronic (9) Low back pain Status: Chronic (10) Incontinence in female Status: Chronic (11) Peripheral neuropathy Status: Chronic (12) Depression Status: Chronic Assessment and Plan Patient examined. Assessment and plan formulated with Rebecca Hurt PA-C. I agree with the above. Problem Qualifiers (1) DM (diabetes mellitus): Qualified Code: E11.8 - Type 2 diabetes mellitus with complication, without long-term current use of insulin (2) Gastroesophageal reflux disease: Qualified Code: K21.9 - Gastroesophageal reflux disease, esophagitis presence not specified (3) Low back pain: Qualified Code: M54.5 - Chronic bilateral low back pain without sciatica (4) Peripheral neuropathy: Qualified Code: G62.9 - Peripheral polyneuropathy (5) Depression: Qualified Code: F32.9 - Depression, unspecified depression type Zach Gaspar DO Oct 23, 2016 09:24
--- NOTE | 2016-10-23 10:41 | EKG ---
Date Performed: 10/23/2016 Time Performed: 06:13:55 PTAGE: 71 years EKG: SINUS TACHYCARDIA NONSPECIFIC T-WAVE ABNORMALITY ABNORMAL ECG Compared to prior tracing no significant change PREVIOUS TRACING 10/12/2016 11.48.15 DOCTOR: Radhames Arzola Interpretating Date/Time 10/23/2016 10:39:04
[2016-10-23] MEDS ORDERED: SODIUM CHLOR 0.9% 1000 ML INJ 1,000 ML IV SCH (11:02)
[2016-10-23] MEDS ORDERED: ATROPINE SULFATE 1 MG/10 ML SYRINGE ONE (11:04)
[2016-10-23] MEDS ORDERED: ATROPINE SULFATE 1 MG/ML VIAL IV PRN (11:15)
[2016-10-23] MEDS ORDERED: MISC INFORMATION XX ONE ×2 (11:15)
[2016-10-23] MEDS ORDERED: LIDOCAINE HCL 1% 50 ML VIAL INFIL PRN (11:15)
[2016-10-23] MEDS ORDERED: SODIUM CHLOR 0.9% 250 ML INJ 250 ML IV PRN (11:15)
[2016-10-23] MEDS ORDERED: BACITRACIN OINT 0.9 GM PKT TOP ONE (11:15)
--- NOTE | 2016-10-23 12:04 | MA ---
cc: CAMERON MAZA DATE: 10/23/2016 PROCEDURE PERFORMED 1. Fluoroscopy interpretation 2. Left heart catheterization. 3. Left coronary angiography 4. Percutaneous transluminal angioplasty right coronary artery. 5. Defibrillation for ventricular fibrillation. METHOD: Risks, benefits and alternatives discussed with the patient. The patient understood and consented for procedure. PROCEDURE The patient was brought into the catheterization lab and placed on the catheterization table. Right groin, right wrist were prepped and draped in usual sterile fashion. Right wrist was anesthetized 2% lidocaine, is cannulated and a of 6-Chinese 7 cm sheath was placed without difficulty. Left heart catheterization; intraoperative hemodynamics is 170/60 mmHg. CORONARY ANGIOGRAPHY Cycle left coronary circulation was selectively engaged 6-Chinese JL-3.5 catheter. Right coronary circulation was selectively engaged 6-Chinese JR-5 catheter. CORONARIES ANATOMY: 1. Left main coronary angiographically normal. 2. Left anterior descending coronary arteries with mild luminal irregularities in the proximal segment, in the mid segment is a 30% stenosis with the bifurcation of the diagonal branch. Otherwise only minor irregularities. 3. Left circumflex has minor irregularities in the first obtuse marginal branch. 4. The right coronary is dominant vessel giving rise to a posterior descending coronary. 5. The right coronary mid segment is tortuous has calcium an eccentric plaque 75% stenosis. 6. The posterior descending branch has minor irregularities. His pressure derived fractional flow reserve; mid-right coronary appear to be moderate to severe stenosis present. We prepped a pressure advanced through a JR 5 guide catheter. Several attempts to pass the pressure wire beyond the mid segment of the right coronary was unsuccessful due to tortuosity. Repeat angiography now showed ANNA I flow likely due to lifting up any eccentric plaque. We bordered a radial approach and due to poor guide support angulation prepped the groin accessed the right common femoral artery 6-Chinese 11 cm sheath was placed. His percutaneous intervention a 0.014 inches choice floppy wire was then navigated down to the distal posterior descending branch. A 2.5 x 0.15 mm for balloon was then deployed at two sequential inflations to 10 atmospheres in the mid segment. Repeat angiography showed shinto of ANNA III flow. We attempted to pass a 2.5 x 12 mm RX bare metal stent but due to tortuosity and calcium were unable to do so. A guide liner was then advanced to the proximal mid segment of the right coronary for additional support and we attempted to pass a 2.0 x 8 mm bare metal stent, again unsuccessful. Angiography did reveal reasonable angioplasty result. Therefore we elected not to pursue any further intervention. There is ANNA III flow. Heparin was administered throughout the entire procedure maintain appropriate angulation. His defibrillation; during the intervention due to poor flow and right coronary ischemia. The patient developed progressive bradycardia due to bezold-jarisch reflex and and then developed ventricular fibrillation. She required two defibrillations at 360 joules with successful conversion to sinus rhythm. CONCLUSION 1. Right coronary stenosis. 2. Successful percutaneous transluminal angioplasty right coronary 3. Normal left-sided filling pressures. PLAN The patient will be monitored closely for any post procedural complications. Clinically she is hemodynamically stable, protected the airway, electrocardiogram shows no significant ischemic changes. Unfortunately given the tortuosity in the right coronary despite very aggressive guide support guide liner were still unable to pass the smallest stent. Therefore we will just proceed with pediatric medical assistant and I will add a long-acting nitrate. MD DIPIKA Campos/missy /11:08 AM /11:25 AM MTDYaquelin
[2016-10-23] MEDS ORDERED: IOHEXOL 350 MG/ML 100 ML BTL (for Cath Lab) OTHER ONE (13:53)
[2016-10-23] MEDS: ACETAMINOPHEN/HYDROcodone 325 MG/10 MG TAB PO PRN ×2 (14:09→22:03)
[2016-10-24] VITALS (9 sets, daily range): BP systolic 103–141; BP diastolic 50–58; PULSE 74–90; RESP 20; TEMP 98–98.5; O2SAT 93–95
[2016-10-24] MEDS: CHLORHEXIDINE GLUCONATE 2 % 1 PACK (2 CLOTHS) TOP SCH (04:00)
[2016-10-24 05:27] LABS: AUTOMATED NEUTROPHIL # 5.9 TH/MM3 (1.8-7.7); BASOPHIL # 0.1 TH/MM3 (0-0.2); BASOPHIL % 0.8 % (0.0-2.0); EOSINOPHIL # 0.2 TH/MM3 (0-0.4); EOSINOPHIL % 2.5 % (0.0-4.0); HEMATOCRIT 31.2 % (35.0-46.0); HEMO FLAGS DIFF FINAL; LYMPHOCYTE # 1.3 TH/MM3 (1.0-4.8); MEAN CELL VOLUME 84.1 FL (80.0-100.0); MEAN CORPUSCULAR HEMOGLOBIN 27.8 PG (27.0-34.0); MONO % 9.2 % (0.0-8.0); NEUT % 71.5 % (16.0-70.0); PLATELET COUNT 371 TH/MM3 (150-450); RED BLOOD COUNT 3.71 MIL/MM3 (4.00-5.30); RED CELL DISTRIBUTION WIDTH 15.4 % (11.6-17.2); WHITE BLOOD COUNT 8.2 TH/MM3 (4.0-11.0)
[2016-10-24 05:57] LABS: BICARBONATE 25.6 MEQ/L (21.0-32.0)
[2016-10-24 05:59] LABS: HDL CHOLESTEROL 44.8 MG/DL (40.0-60.0)
[2016-10-24] MEDS: INSULIN NovoLIN REGULAR SUPPLEMENTAL SCALE SQ SCH ×3 (06:00→17:25)
[2016-10-24 06:20] LABS: CKMB 20.3 NG/ML (0.5-3.6)
[2016-10-24] MEDS: GLIMEPIRIDE 2 MG TAB PO SCH ×2 (06:46→17:24)
[2016-10-24] MEDS: ACETAMINOPHEN/HYDROcodone 325 MG/10 MG TAB PO PRN ×2 (06:58→11:04)
[2016-10-24] MEDS ORDERED: ISOSORBIDE MONONITRATE 30 MG TAB PO SCH (07:00)
--- NOTE | 2016-10-24 07:53 | PD.CARD.PN ---
Subjective Subjective Remarks denies chest pain Objective Vital Signs / I&O Vital Signs Date Time Temp Pulse Resp B/P Pulse Ox O2 Delivery O2 Flow Rate FiO2 10/24/16 07:25 95 Nasal Cannula 2.00 10/24/16 04:01 96 Nasal Cannula 2.00 10/23/16 23:45 96 Nasal Cannula 2.00 10/23/16 20:09 95 21 10/23/16 20:00 96 Nasal Cannula 2.00 10/23/16 16:14 87 10/23/16 16:05 98.7 94 16 165/81 95 Arterial Line 10/23/16 16:05 95 Nasal Cannula 2.00 10/23/16 15:05 96 Nasal Cannula 2.00 10/23/16 13:01 98.5 95 18 80/62 97 160/66 10/23/16 09:12 98 Nasal Cannula 2.00 10/23/16 08:00 97.6 91 22 150/66 98 I/O 10/23/16 10/23/16 10/23/16 10/24/16 10/24/16 10/24/16 07:00 15:00 23:00 07:00 15:00 23:00 Intake Total 0 ml 551 ml Output Total 750 ml Balance 0 ml -199 ml Intake Oral 0 ml 240 ml IV Total 311 ml Output Urine Total 750 ml # Voids 5 # Bowel Movements 3 Physical Exam GENERAL: Well-nourished, well-developed patient in no apparent distress. NECK: No JVD. No carotid bruit. CARDIOVASCULAR: Regular rate and rhythm. S1/S2 no murmur, rub, or gallop. RESPIRATORY: No accessory muscle use. Clear to auscultation. Breath sounds equal bilaterally. GASTROINTESTINAL: Abdomen soft, non-tender, nondistended. MUSCULOSKELETAL: Extremities without clubbing, cyanosis, or edema. Laboratory Laboratory Tests Test 10/24/16 04:46 White Blood Count 8.2 TH/MM3 Red Blood Count 3.71 MIL/MM3 Hemoglobin 10.3 GM/DL Hematocrit 31.2 % Mean Corpuscular Volume 84.1 FL Mean Corpuscular Hemoglobin 27.8 PG Mean Corpuscular Hemoglobin 33.0 % Concent Red Cell Distribution Width 15.4 % Platelet Count 371 TH/MM3 Mean Platelet Volume 8.7 FL Neutrophils (%) (Auto) 71.5 % Lymphocytes (%) (Auto) 16.0 % Monocytes (%) (Auto) 9.2 % Eosinophils (%) (Auto) 2.5 % Basophils (%) (Auto) 0.8 % Neutrophils # (Auto) 5.9 TH/MM3 Lymphocytes # (Auto) 1.3 TH/MM3 Monocytes # (Auto) 0.8 TH/MM3 Eosinophils # (Auto) 0.2 TH/MM3 Basophils # (Auto) 0.1 TH/MM3 CBC Comment DIFF FINAL Differential Comment Sodium Level 145 MEQ/L Potassium Level 3.0 MEQ/L Chloride Level 111 MEQ/L Carbon Dioxide Level 25.6 MEQ/L Anion Gap 8 MEQ/L Blood Urea Nitrogen 12 MG/DL Creatinine 0.60 MG/DL Estimat Glomerular Filtration 98 ML/MIN Rate Random Glucose 96 MG/DL Calcium Level 8.4 MG/DL Total Creatine Kinase 260 U/L Creatine Kinase MB 20.3 NG/ML Creatine Kinase MB % 7.8 % Triglycerides Level 138 MG/DL Cholesterol Level 192 MG/DL LDL Cholesterol 120 MG/DL HDL Cholesterol 44.8 MG/DL Cholesterol/HDL Ratio 4.28 RATIO Assessment and Plan Problem List: (1) NSTEMI (non-ST elevated myocardial infarction) Assessment and Plan CAD s/p POBA RCA continue ASA and Plavix HTN increase lisinopril to 20 mg daily Ayo Mitchell Oct 24, 2016 07:52
[2016-10-24] MEDS: ARTIFICIAL TEARS OPTH SOLN 15 ML BTL EACH EYE SCH ×3 (09:00→17:25)
[2016-10-24] MEDS ORDERED: LISINOPRIL 20 MG TAB PO SCH (09:00)
[2016-10-24] MEDS: TOBRAMYCIN 0.3%/DEXAMETHASONE 0.1% OPHT SUSP 5 ML BTL EACH EYE SCH ×3 (09:00→17:24)
[2016-10-24] MEDS: SODIUM CHLORIDE 0.9% FLUSH 5 ML FLUSH IV FLUSH SCH ×2 (09:00→09:19)
[2016-10-24] MEDS: ARIPiprazole 2 MG TAB PO SCH (09:19)
[2016-10-24] MEDS: PANTOPRAZOLE SODIUM 40 MG VIAL IV SCH (09:19)
[2016-10-24] MEDS: ASPIRIN EC 81 MG TABEC PO SCH (09:20)
[2016-10-24] MEDS: INSULIN DETEMIR 100 UNITS/ML VIAL SQ SCH (09:20)
[2016-10-24] MEDS: CLOPIDOGREL 75 MG TAB PO SCH (09:20)
[2016-10-24] MEDS: ESCITALOPRAM OXALATE 10 MG TAB PO SCH (09:20)
[2016-10-24] MEDS: guaiFENesin E.R. 600 MG TAB PO SCH (09:20)
[2016-10-24] MEDS: OXYBUTYNIN CHLORIDE 5 MG TAB PO SCH ×2 (09:20→09:43)
[2016-10-24] MEDS: FERROUS SULFATE 325 MG (65 MG ELEMENTAL IRON) TAB PO SCH (09:20)
[2016-10-24] MEDS: GABAPENTIN 300 MG CAP PO SCH (09:21)
[2016-10-24] MEDS: FLUTICASONE PROPIONATE 50 MCG/ACT 16 GM NASAL SPRAY EACH NARE SCH (09:43)
[2016-10-24] MEDS ORDERED: ATORVASTATIN 20 MG TAB PO SCH (14:15)
[2016-10-24] MEDS ORDERED: Artificial Tears Opth Soln EACH EYE (16:25)
[2016-10-24] MEDS ORDERED: LISI10TA3 PO (16:25)
[2016-10-24] MEDS ORDERED: NITR0.4S SL (16:25)
[2016-10-24] MEDS ORDERED: LOPE2TAB PO (16:25)
[2016-10-24] MEDS ORDERED: ISOS30TA3 PO (16:25)
[2016-10-24] MEDS ORDERED: HYDR-3583 PO (16:26)
--- NOTE | 2016-10-24 16:30 | HHI.PR ---
Subjective Remarks No new complaints. Eager for discharge. Objective Vitals Vital Signs Date Time Temp Pulse Resp B/P Pulse Ox O2 Delivery O2 Flow Rate FiO2 10/24/16 15:18 96 Nasal Cannula 2.00 10/24/16 15:16 98.3 74 20 106/54 93 10/24/16 15:09 75 10/24/16 12:04 20 10/24/16 11:59 96 Nasal Cannula 2.00 10/24/16 11:54 98.1 90 20 103/52 93 10/24/16 11:00 89 10/24/16 08:00 96 Nasal Cannula 2.00 10/24/16 08:00 98.0 90 20 141/58 93 10/24/16 07:25 95 Nasal Cannula 2.00 10/24/16 07:00 81 10/24/16 04:01 96 Nasal Cannula 2.00 10/24/16 04:00 74 10/24/16 04:00 98.0 75 20 117/58 93 10/24/16 00:00 81 10/24/16 00:00 98.5 80 20 113/50 95 10/23/16 23:45 96 Nasal Cannula 2.00 10/23/16 20:09 95 21 10/23/16 20:00 86 10/23/16 20:00 98.1 89 20 125/59 88 10/23/16 20:00 96 Nasal Cannula 2.00 10/23/16 10/23/16 10/24/16 15:00 23:00 07:00 Intake Total 551 ml 1290 ml Output Total 750 ml 350 ml Balance -199 ml 940 ml Intake Oral 240 ml 600 ml IV Total 311 ml 690 ml Output Urine Total 750 ml 350 ml # Bowel Movements 0 Result Diagram: 10/24/16 0446 10/24/16 0446 Imaging Last Impressions Chest CT 10/21/16 0000 Signed Impressions: Service Date/Time: Friday, October 21, 2016 12:03 - CONCLUSION: 1. Central lobar emphysema with some faint mild scattered infiltrates in the right upper lung along with some interstitial changes. This is suggestive of an inflammatory process such as pneumonia. 2. Linear atelectasis in the posterior right lung base with a small right pleural effusion. 3. The left lung is grossly clear. 4. Bilateral adrenal adenomas versus cysts. Jose Berrios MD Pelvis X-Ray 10/19/16 0000 Signed Impressions: Service Date/Time: Wednesday, October 19, 2016 08:40 - CONCLUSION: Negative for fracture. Evidence of previous surgery on the left. Gregory Nava MD FACR Chest X-Ray 10/18/16 0600 Signed Impressions: Service Date/Time: October 04:50 - CONCLUSION: Increasing airspace disease on the right. Akhil Weaver MD Liver Ultrasound 10/15/16 0000 Signed Impressions: Service Date/Time: Saturday, October 15, 2016 08:27 - CONCLUSION: Mildly echogenic liver without intrahepatic biliary duct dilatation otherwise. Gregory Nava MD FACR CT Angiography 10/12/16 1147 Signed Impressions: Service Date/Time: Wednesday, October 12, 2016 13:53 - CONCLUSION: 1. Patchy air space disease is both lungs much worse on the right than the left suspicious for an inflammatory process. 2. There is no evidence for central pulmonary emboli. Gregory Nava MD FACR Lower Extremity Ultrasound 10/12/16 0000 Signed Impressions: Service Date/Time: Wednesday, October 12, 2016 22:15 - CONCLUSION: No DVT is identified within either lower extremity. Anup De La Rosa MD Head CT 10/12/16 0000 Signed Impressions: Service Date/Time: Wednesday, October 12, 2016 13:44 - CONCLUSION: Negative for an acute process Gregory Nava MD FACR Objective Remarks General: NAD, AAOx3 Chest: Scattered rhonchi Cardiac: Regular Abd: +BS, soft ND/NT Ext: No edema Date of Insertion: Oct 12, 2016 Line: Central Venous Catheter Side: Right Location: Internal, Jugular A/P Problem List: (1) Acute hypoxemic respiratory failure Status: Acute Plan: - Pt was [facility]obics [facility]. She tells me that she may have developed some chest pain as she did about 1 month prior during the class. She reports that she was trying to get to edge of pool and "sank". Can't recall anything after that and ? aspiration of pool water. Reports suggest pt was pulled from water and EMS found her to have respiratory arrest but no report of cardiac arrest or CPR. She had copious secretion in airway and was intubated in field. On arrival she was hypotensive requiring pressors. - She was found to have right lung airspace dz more than left concerning for aspiration pneumonia. - Her EKG showed sinus tach. Her CK, CK-MB, troponin trended up (0.03-->0.62--> 0.72-->0.23-->0.11) but CK-MB percent remained nml. - Pt buttock pain seems to be msk. - She reports chronic diarrhea. C.diff neg. Imodium PRN - Azithromycin (10/12 - 10/22) - Zosyn (10/12 - 10/22) - Wean oxygen - Cont nebulizer rx --> Duonebs, Budesonide - IS and Acapella. - Repeat Chest CT (10/21) --> Central lobar emphysema with some faint mild scattered infiltrates in the right upper lung along with some interstitial changes. Linear atelectasis in the posterior right lung base with a small right pleural effusion. The left lung is grossly clear. This does appear to be improving compared to previous CTA images. - CXR (10/23/16) --> new bibasilar infiltrates c/w CHF - PT daily. 2D echo --> Estimated EF 40-45%, but in 2012 her echo showed EF 35-40%. - Pt to undergo LHC (10/23/16) --> RCA angioplasty but NO stent - Case d/w Dr. Song 10/24/16, pt cleared for discharge to SNF (2) DM (diabetes mellitus) Status: Chronic Plan: - Amaryl 4mg BID - NovoLog SSI - Accu checks (3) PAD (peripheral artery disease) Status: Chronic (4) Hypomagnesemia Status: Acute (5) Hypopotassemia Status: Acute (6) Chronic combined systolic and diastolic heart failure Status: Chronic (7) Gastroesophageal reflux disease Status: Chronic (8) Post-polio syndrome Status: Chronic (9) Low back pain Status: Chronic (10) Incontinence in female Status: Chronic (11) Peripheral neuropathy Status: Chronic (12) Depression Status: Chronic Assessment and Plan Patient examined. Assessment and plan formulated with Rebecca Hurt PA-C. I agree with the above. Problem Qualifiers (1) DM (diabetes mellitus): Qualified Code: E11.8 - Type 2 diabetes mellitus with complication, without long-term current use of insulin (2) Gastroesophageal reflux disease: Qualified Code: K21.9 - Gastroesophageal reflux disease, esophagitis presence not specified (3) Low back pain: Qualified Code: M54.5 - Chronic bilateral low back pain without sciatica (4) Peripheral neuropathy: Qualified Code: G62.9 - Peripheral polyneuropathy (5) Depression: Qualified Code: F32.9 - Depression, unspecified depression type Zach Gaspar DO Oct 24, 2016 16:30
--- NOTE | 2016-10-24 22:49 | EKG ---
Date Performed: 10/24/2016 Time Performed: 05:22:02 PTAGE: 71 years EKG: Sinus rhythm Lead(s) unsuitable for analysis: V6 Possible inferior infarct - age undetermined Abnormal ECG NO PREVIOUS TRACING DOCTOR: Betzaida Ward Interpretating Date/Time 10/24/2016 22:45:57
--- NOTE | 2016-10-24 23:07 | EKG ---
Date Performed: 10/23/2016 Time Performed: 13:39:10 PTAGE: 71 years EKG: Sinus rhythm . Short NC interval Possible inferior infarct - age undetermined Abnormal ECG NO PREVIOUS TRACING DOCTOR: Betzaida Ward Interpretating Date/Time 10/24/2016 23:00:27
[2016-10-25] MEDS ORDERED: LISINOPRIL 10 MG TAB PO SCH (09:00)
--- NOTE | 2016-10-25 09:33 | HHI.DS ---
Discharge Summary Admission Date Oct 12, 2016 at 13:45 Discharge Date: Oct 24, 2016 Admitting Diagnosis respiratory distress, hypoxia, pulmonary edema, lactic acidosis (1) Acute hypoxemic respiratory failure Diagnosis: Principal (2) DM (diabetes mellitus) Diagnosis: Secondary (3) PAD (peripheral artery disease) Diagnosis: Secondary (4) Hypomagnesemia Diagnosis: Secondary (5) Hypopotassemia Diagnosis: Secondary (6) Chronic combined systolic and diastolic heart failure Diagnosis: Secondary (7) Gastroesophageal reflux disease Diagnosis: Secondary (8) Post-polio syndrome Diagnosis: Secondary (9) Low back pain Diagnosis: Secondary (10) Incontinence in female Diagnosis: Secondary (11) Peripheral neuropathy Diagnosis: Secondary (12) Depression Diagnosis: Secondary Consultants Dr. Hilton Montalvo - Cardiology Brief History Mrs. Trivedi is a 71 y/o WF with postpolio syndrome, chronic systolic and diastolic heart failure with EF 35%, depression, GERD, PAD, diabetes, hiatal hernia and low back pain. She presented to the ED via EMS on 10/12/16 for acute hypoxemic respiratory arrest. EMS stated the patient was at the [facility] located in [place], when she developed shortness of breath in the swimming pool while performing water aerobics. The patient was pulled from the pool, by the lifeguards, and there was no evidence of drowning according to EMS report. She was noted to have agonal breathing, not responding to questioning, and intubated in the field with a 7.0 endotracheal tube. The patient was noted to have copious secretions during the intubation and required significant suctioning according to EMS. The patient did receive etomidate 20 mg and Ativan , unknown amount, in the field for intubation. They also administered Lasix 80 mg intravenously prior to arrival. Pt was admitted to ICU under the intensivists care. CBC/BMP: 10/24/16 0446 10/24/16 0446 Significant Findings Laboratory Tests Test 10/22/16 10/24/16 14:10 04:46 Red Blood Count 3.82 MIL/MM3 3.71 MIL/MM3 (4.00-5.30) (4.00-5.30) Hemoglobin 10.5 GM/DL 10.3 GM/DL (11.6-15.3) (11.6-15.3) Hematocrit 32.5 % 31.2 % (35.0-46.0) (35.0-46.0) Neutrophils (%) (Auto) 71.5 % (16.0-70.0) Monocytes (%) (Auto) 9.2 % (0.0-8.0) Potassium Level 3.0 MEQ/L (3.5-5.1) Chloride Level 111 MEQ/L (98-107) Calcium Level 8.4 MG/DL (8.5-10.1) Total Creatine Kinase 260 U/L (26-192) Creatine Kinase MB 20.3 NG/ML (0.5-3.6) Creatine Kinase MB % 7.8 % (0.0-4.0) LDL Cholesterol 120 MG/DL (0-99) Imaging Last Impressions Chest X-Ray 10/23/16 0000 Signed Impressions: Service Date/Time: Sunday, October 23, 2016 05:49 - CONCLUSION: 1. Cardiomegaly and findings of congestive heart failure. This is new when compared with the prior exam. Hilton Sheldon MD Chest CT 10/21/16 0000 Signed Impressions: Service Date/Time: Friday, October 21, 2016 12:03 - CONCLUSION: 1. Central lobar emphysema with some faint mild scattered infiltrates in the right upper lung along with some interstitial changes. This is suggestive of an inflammatory process such as pneumonia. 2. Linear atelectasis in the posterior right lung base with a small right pleural effusion. 3. The left lung is grossly clear. 4. Bilateral adrenal adenomas versus cysts. Jose Berrios MD Pelvis X-Ray 10/19/16 0000 Signed Impressions: Service Date/Time: Wednesday, October 19, 2016 08:40 - CONCLUSION: Negative for fracture. Evidence of previous surgery on the left. Gregory Nava MD FACR Liver Ultrasound 10/15/16 0000 Signed Impressions: Service Date/Time: Saturday, October 15, 2016 08:27 - CONCLUSION: Mildly echogenic liver without intrahepatic biliary duct dilatation otherwise. Gregory Nava MD FACR CT Angiography 10/12/16 1147 Signed Impressions: Service Date/Time: Wednesday, October 12, 2016 13:53 - CONCLUSION: 1. Patchy air space disease is both lungs much worse on the right than the left suspicious for an inflammatory process. 2. There is no evidence for central pulmonary emboli. Gregory Nava MD FACR Lower Extremity Ultrasound 10/12/16 0000 Signed Impressions: Service Date/Time: Wednesday, October 12, 2016 22:15 - CONCLUSION: No DVT is identified within either lower extremity. Anup De La Rosa MD Head CT 10/12/16 0000 Signed Impressions: Service Date/Time: Wednesday, October 12, 2016 13:44 - CONCLUSION: Negative for an acute process Gregory Nava MD FACR PE at Discharge General: NAD, AAOx3 Chest: Scattered rhonchi Cardiac: Regular Abd: +BS, soft ND/NT Ext: No edema Hospital Course Pt was performing aerobics in [facility] Pool. She tells me that she may have developed some chest pain as she did about 1 month prior during the class. She reports that she was trying to get to edge of pool and "sank". Can't recall anything after that and there was concern for possible aspiration of pool water. Reports suggest pt was pulled from water and EMS found her to have respiratory arrest but no report of cardiac arrest or CPR. She had copious secretion in airway and was intubated in field. On arrival she was hypotensive requiring pressors. She was found to have right lung airspace dz more than left concerning for aspiration pneumonia. CT of the chest revealed no pulmonary mucosa but small right pleural effusion in inflammatory type changes. She was treated with a dose of cefepime and azithromycin in the ER and was continued on Zosyn and Azithromycin to cover for possible aspiration. Patient became hypotensive the ED while on propofol/versed/fentanyl. A central line and arterial line were placed and pt was started on a Favio-Synephrine gtt. Pt was able to be weaned off the Favio-Synephrine and was extubated on 10/15. Pt was transferred to the [facility] Hospitalist service on 10/16. She was continued on nebulizer treatments and antibiotics with slow clinical improvement. Repeat Chest CT (10/21) --> Central lobar emphysema with some faint mild scattered infiltrates in the right upper lung along with some interstitial changes. Linear atelectasis in the posterior right lung base with a small right pleural effusion. The left lung is grossly clear. This does appear to be improving compared to previous CTA images. CXR (10/23/16) --> new bibasilar infiltrates c/w CHF. Pt was unable to be wean off the oxygen before discharge to SNF. She completed the Azithromycin and Zosyn on 10/23. She was encouraged to use the Acapella and IS. Her EKG at admission showed sinus tach. Her CK, CK-MB, troponin trended up (0.03 -->0.62-->0.72-->0.23-->0.11) but CK-MB percent remained nml. She reported some chest discomfort prior to her episode in the pool. 2D echo (10/17) --> Estimated EF 40-45%, but in 2012 her echo showed EF 35-40%. Pt underwent LHC (10/23/16) -- > RCA angioplasty. She did develop ventricular fibrillation and required defibrillation x 2 during the intervention due to poor flow and right coronary ischemia. Case d/w Dr. Song 10/24/16, pt cleared for discharge to SNF. She is being prescribed Imdur 30mg po daily and Lisinopril 10mg po daily. She had vague complaints of musculoskeletal pain during her admission which she attributed to being "dragged out of the pool." She will be given [place] to help with the discomfort. Pt also with a hx of chronic diarrhea and uses Imodium regularly to control her bowels. She will continue Imodium PRN at rehab. Pt is being discharged to SNF for continued rehab efforts. She is to followup with Cardiology in 2 weeks Pt will need to followup with her PCP, Dr. Irving, 1 week after discharge from rehab. Pt Condition on Discharge: Stable Discharge Disposition: Discharge to SNF Discharge Instructions DIET: Follow Instructions for: Heart Healthy Diet Activities you can perform: Weight Bearing as Chanel Follow up Referrals: Cardiology with Dr. Eliseo Song PCP Follow-up - [address] Guru Irving New Medications: Hydrocodone-Acetaminophen (Hydrocodone-Acetaminophen) 10-325 mg Tab 1 TAB PO Q4H PRN pain over 3 #30 Ref 0 TAB Isosorbide Mononitrate ER (Isosorbide Mononitrate ER) 30 Mg Jen 30 MG PO DAILY@07 cad Days 30 Ref 0 TAB Lisinopril (Lisinopril) 10 Mg Tab 10 MG PO DAILY cad Days 30 Ref 0 TAB Loperamide (Loperamide) 2 Mg Tab 2 MG PO Q4H PRN diarrhea Days 30 TAB Nitroglycerin SL (Nitrostat SL) 0.4 Mg Subl 0.4 MG SL Q5M chest pain Days 30 BOTTLE ([Artificial Tears Opth Soln]) 300 DROP/15 ML SOLN 1 DROP EACH EYE TID dry eyes Days 30 BOTTLE Continued Medications: Aripiprazole (Abilify) 2 Mg Tab 2 MG PO DAILY #30 Ref [address] (Aspirin Adult Low Strength) 81 Mg Tabdr 81 MG PO DAILY TAB Atorvastatin (Atorvastatin) 40 Mg Tab 40 MG PO HS Cholesterol Management #30 Ref 0 TAB Clopidogrel (Plavix) 75 Mg Tab 75 MG PO DAILY Blood Clot Prevention #30 Ref 0 TAB Escitalopram (Lexapro) 5 Mg Tab 5 MG PO DAILY #30 Ref 0 TAB Fluticasone Nasal [place] (Flonase Allergy Relief Nasal [place]) 50 Mcg/Act [place] 1-2 SPRAY EACH NARE BID Allergies #1 Ref 0 BOTTLE Gabapentin (Gabapentin) 300 Mg Cap 300 MG PO BID #60 Ref 0 CAP Glimepiride (Glimepiride) 4 Mg Tab 4 MG PO BIDAC Blood Sugar Management #60 Ref 0 TAB Lansoprazole (Lansoprazole) 30 Mg Capdr 30 MG PO BID Ref 0 CAP Linagliptin (Tradjenta) 5 Mg Tab 5 MG PO DAILY Blood Sugar Management #30 Ref 0 TAB Metformin (Metformin) 500 Mg Tab 500 MG PO BID With meals Blood Sugar Management #60 Ref 0 TAB Oxybutynin (Ditropan) 5 Mg Tab 5 MG PO DAILY Urinary Symptom Managemen #60 Ref 0 TAB Tobramycin-Dexamethasone Opth Drops (Tobramycin-Dexamethasone Opth Drops) 0.3- 0.1 % Susp 1 DROP EACH EYE TID Infection/Inflammation #1 Ref 0 BOTTLE Discontinued Medications: Fesoterodine ER (Toviaz ER) 8 Mg Jen 8 MG PO DAILY Overactive bladder #30 Ref 0 TAB Furosemide (Lasix) 20 Mg Tab 20 MG PO DAILY PRN SWELLING #30 Ref 0 TAB Potassium Chloride ER (Potassium Chloride ER) 10 Meq Cap 10 MEQ PO DAILY PRN WHEN TAKING LASIX #30 Ref 0 CAP Sulfamethoxazole-Trimethoprim (Bactrim DS) 800-160 Mg Tab 1 TAB PO DAILY Infection Ref 0 TAB Additional Information Patient examined. Assessment and plan formulated with Rebecca Hurt PA-C. I agree with the above. Rebecca Hurt Oct 25, 2016 09:33 Zach Gaspar DO Oct 28, 2016 06:53
--- NOTE | 2016-10-26 18:47 | PD.CARD.CA ---
Cardiac Catheterization Procedure Date: Oct 23, 2016 Procedure Note: addendum: RCA intervention lesion length 12 mm residual stenosis 20% Duncan,Eliseo Linder MD Oct 26, 2016 18:47
== END 2016-10-24 18:50 | DRG 981 ==
LOC: NEPE 11:39 → NEDH 13:45 → HIMW 16:40 → HOCB 10-17 16:30 → HCIS 10-23 10:48 → HCVR 10-23 12:19
PROVIDERS: ADMIT Internal Medicine Critical Care Medicine; ATTEND Hospitalist
PROC: 5A1945Z Respiratory Ventilation, 24-96 Consecutive Hours (ICD-10-PCS; 2016-10-12)
PROC: 05HM33Z Insertion of Infusion Device into Right Internal Jugular Vein, Percutaneous Approach (ICD-10-PCS; 2016-10-12)
PROC: 03HY32Z Insertion of Monitoring Device into Upper Artery, Percutaneous Approach (ICD-10-PCS; 2016-10-12)
PROC: 4A023N7 Measurement of Cardiac Sampling and Pressure, Left Heart, Percutaneous Approach (ICD-10-PCS; 2016-10-23)
PROC: B2111ZZ Fluoroscopy of Multiple Coronary Arteries using Low Osmolar Contrast (ICD-10-PCS; 2016-10-23)
PROC: B2151ZZ Fluoroscopy of Left Heart using Low Osmolar Contrast (ICD-10-PCS; 2016-10-23)
PROC: 4A033BC Measurement of Arterial Pressure, Coronary, Percutaneous Approach (ICD-10-PCS; 2016-10-23)
PROC: 5A2204Z Restoration of Cardiac Rhythm, Single (ICD-10-PCS; 2016-10-23)
PROC: 02703ZZ Dilation of Coronary Artery, One Artery, Percutaneous Approach (ICD-10-PCS; principal; 2016-10-23 08:45)
DX: J96.01 Acute respiratory failure with hypoxia (principal); I21.4 Non-ST elevation (NSTEMI) myocardial infarction; J69.0 Pneumonitis due to inhalation of food and vomit; I49.01 Ventricular fibrillation; J44.0 Chronic obstructive pulmonary disease with (acute) lower respiratory infection; E87.2 Acidosis; I50.42 Chronic combined systolic (congestive) and diastolic (congestive) heart failure; G14 Postpolio syndrome; E78.5 Hyperlipidemia, unspecified; E87.6 Hypokalemia; F32.9 Major depressive disorder, single episode, unspecified; F41.9 Anxiety disorder, unspecified; K21.0 Gastro-esophageal reflux disease with esophagitis; K44.9 Diaphragmatic hernia without obstruction or gangrene; R32 Unspecified urinary incontinence; E83.42 Hypomagnesemia; G89.29 Other chronic pain; E11.65 Type 2 diabetes mellitus with hyperglycemia; M54.5 Low back pain; E11.42 Type 2 diabetes mellitus with diabetic polyneuropathy; K52.9 Noninfective gastroenteritis and colitis, unspecified; I25.10 Atherosclerotic heart disease of native coronary artery without angina pectoris; I25.2 Old myocardial infarction; J30.9 Allergic rhinitis, unspecified; I11.0 Hypertensive heart disease with heart failure; M77.30 Calcaneal spur, unspecified foot; I73.9 Peripheral vascular disease, unspecified; E66.9 Obesity, unspecified; Z68.30 Body mass index [BMI] 30.0-30.9, adult; M79.1 Myalgia; Z87.891 Personal history of nicotine dependence; Z79.84 Long term (current) use of oral hypoglycemic drugs; Z88.5 Allergy status to narcotic agent; Z88.8 Allergy status to other drugs, medicaments and biological substances
CPT/HCPCS: 36556; 51702; 70450; 71010; 71250; 71275; 72170; 76705; 76937; 80048; 80053; 80061; 80074; 80076; 81001; 82272; 82550; 82552; 82805; 82948; 83605; 83735; 83880; 84100; 84484; 85002; 85007; 85025; 85027; 85610; 85730; 86850; 86900; 86901; 87040; 87070; 87205; 87449; 87493; 87804; 92920; 93005; 93306; 93454; 93970; 94002; 94003; 94150; 94640; 94664; 94667; 94668; 96365; 96375; C1725; C1769; C1887; C1893; C9113; J0171; J0456; J0461; J0692; J1644; J1940; J2250; J2370; J2543; J3010; J3475; J3480; J7030; J7050; J7060; J7608; J7626; Q9967

== ENCOUNTER 2017-05-13 11:05 | Inpatient (IN) | payer MEDICARE ==
[~2017-05-13] VITALS: Ht 152.4 cm; Wt 66.7 kg
[2017-05-13] VITALS (37 sets, daily range): BP systolic 66–189; BP diastolic 38–108; PULSE 90–130; RESP 17–40; TEMP 95–98.7; O2SAT 94–100
[~2017-05-13 11:05] MED LIST changes: +ABIL2TAB2 PO; -ALBU8I INH; +AMOX500T2 PO; +ASPI1TAB91 PO; +ASPI325T10 OR; -ASPI81TA82 PO; -ATOR40TA PO; +ATOR40TA16 PO; +AZIT250T74 PO; +Artificial Tears Opth Soln EACH EYE; -CEPH500C3 PO; -CILO100T PO; -CYMB30CA PO; +ESCI10TA PO; +FLUT1SPR5 EACH NARE; -GABA300C3 PO; +GABA300C5 PO; +GLIM4TAB PO; +GLUCTAB PO; -HYDR-2768 PO; +HYDR-3583 PO; +ISOS30TA3 PO; +LANS30CA PO; +LEXA5TAB PO; +LISI10TA3 PO; +LOPE2TAB PO; -LORTA5 PO; +METF500T PO; +METO25 PO; +NITR0.4S SL; +OXYB5TAB10 PO; +PLAV75TA29 PO; +TOBRSUS9 EACH EYE; -ULTR50TA PO; +ZOCO80TA PO
[2017-05-13] MEDS ORDERED: PROPOFOL 1000 MG/100 ML INJ 100 ML IV PRN ×2 (11:15→15:15)
[2017-05-13] MEDS ORDERED: SODIUM CHLORIDE 0.9% FLUSH 10 ML FLUSH IVF PRN (11:15)
[2017-05-13] MEDS ORDERED: ETOMIDATE 20 MG/10 ML VIAL IVP ONE (11:15)
[2017-05-13] MEDS ORDERED: SUCCINYLCHOLINE CHLORIDE 200 MG/10 ML VIAL IVP ONE (11:15)
--- NOTE | 2017-05-13 11:27 | PD ---
HPI Chief Complaint: short of breath Time Seen by Provider: 11:13 Travel History International Travel<30 days: No Contact w/Intl Traveler<30days: No Traveled to known affect area: No History of Present Illness HPI This patient was swimming at a pool at the [facility] and became short of breath. Paramedics were called and they found her and profound respiratory distress. Saturations were approximately 50% on room air. They tried nonrebreather and C Pap in route but she became tired and they were assisting with bag mask upon arrival. Patient is minimally responsive upon arrival and unable to provide any history or review of systems. She is critically ill in profound respiratory failure. They report she has history of CHF. There is no submerging under the water and this is not a near drowning event. She was seated at the side of the pool when they arrived. Duration is one hour. Symptoms are severe. No alleviating factors PFSH Social History Alcohol Use: No Tobacco Use: No Substance Use: No Allergies-Medications (Allergen,Severity, Reaction): Coded Allergies: No Known Allergies (Unverified , 05/13/17) Review of Systems ROS Limitations: Clinical Condition, Altered Mental Status, Unresponsive, Poor Historian Physical Exam Narrative GENERAL: Well-nourished, well-developed patient who is unresponsive . SKIN: Focused skin assessment reveals no rash and nodules. Skin is Warm and dry. HEAD: Atraumatic. Normocephalic. EYES: Pupils equal and round. No scleral icterus. No injection or drainage. ENT: No nasal bleeding or discharge. Mucous membranes pink and moist. NECK: Trachea midline. No JVD. CARDIOVASCULAR: Regular rate and rhythm. No murmur appreciated. RESPIRATORY: Poor respiratory effort. Has Rales in both bases. GASTROINTESTINAL: Abdomen soft, non-tender, nondistended. Hepatic and splenic margins not palpable. MUSCULOSKELETAL: Has left foot deformity. No cyanosis. Has symmetric edema of the feet ankles and lower legs. Some hyperpigmentation stasis suggest chronic edema. NEUROLOGICAL: Patient is obtunded, nonverbal, does not respond to questioning or commands. Impossible to test motor strength or sensation. Positive gag PSYCHIATRIC: Impossible to test mood and affect; insight and judgment poor. Data Data Last Documented VS Vital Signs Date Time Temp Pulse Resp B/P (MAP) Pulse Ox O2 Delivery O2 Flow Rate FiO2 05/13/17 12:41 103 19 160/60 (93) 97 05/13/17 12:30 50 05/13/17 12:10 97.7 05/13/17 11:30 Ventilator Orders Orders Chest, Single Ap (05/13/17 11:13) Arterial Blood Gas (Abg) (05/13/17 11:13) Ecg Monitoring (05/13/17 11:13) Iv Access Insert/Monitor (05/13/17 11:13) Ng Gastric Tube Insert/Monitor (05/13/17 11:13) Urinary Catheter Insert/Apply (05/13/17 11:13) Oximetry (05/13/17 11:13) Oxygen Administration (05/13/17 11:13) Etomidate Inj (Amidate Inj) (05/13/17 11:15) Succinylcholine Inj (Quelicin Inj) (05/13/17 11:15) Sodium Chloride 0.9% Flush (Ns Flush) (05/13/17 11:15) Restraints Non-Violent TEODORA.Q3H (05/13/17 11:13) Bending Shed Worker / Telemetry TEODORA.Q8H (05/13/17 11:13) Complete Blood Count With Diff (05/13/17 11:13) Comprehensive Metabolic Panel (05/13/17 11:13) Creatine Kinase (Cpk) (05/13/17 11:13) Troponin I (05/13/17 11:13) Propofol 1000 Mg/100 Ml Inj (Diprivan 10 (05/13/17 11:15) ^ Infusion (05/13/17 11:13) RASS (05/13/17 11:13) Neurological Rass Scale TEODORA.Q2H (05/13/17 11:13) Furosemide Inj (Lasix Inj) (05/13/17 11:30) Furosemide Inj (Lasix Inj) (05/13/17 11:45) Piperacil-Tazo 3.375 Gm Premix (Zosyn 3. (05/13/17 12:30) Urinalysis - C+S If Indicated (05/13/17 12:36) Sputum Culture And Gram Stain (05/13/17 12:38) Insulin Human Regular Inj (Novolin R Inj (05/13/17 13:15) Admit Order (Ed Use Only) (05/13/17 13:27) Ct Brain W/O Iv Contrast(Rout) (05/13/17 ) Ct Pulmonary Angiogram (05/13/17 ) Labs Laboratory Tests Test 05/13/17 11:10 05/13/17 11:40 05/13/17 12:10 White Blood Count 27.1 TH/MM3 Red Blood Count 4.96 MIL/MM3 Hemoglobin 13.6 GM/DL Hematocrit 41.5 % Mean Corpuscular Volume 83.7 FL Mean Corpuscular Hemoglobin 27.4 PG Mean Corpuscular Hemoglobin Concent 32.7 % Red Cell Distribution Width 14.6 % Platelet Count 443 TH/MM3 Mean Platelet Volume 9.2 FL Neutrophils (%) (Auto) 69.1 % Lymphocytes (%) (Auto) 25.6 % Monocytes (%) (Auto) 4.1 % Eosinophils (%) (Auto) 0.7 % Basophils (%) (Auto) 0.5 % Neutrophils # (Auto) 18.8 TH/MM3 Lymphocytes # (Auto) 6.9 TH/MM3 Monocytes # (Auto) 1.1 TH/MM3 Eosinophils # (Auto) 0.2 TH/MM3 Basophils # (Auto) 0.1 TH/MM3 CBC Comment AUTO DIFF Differential Total Cells Counted 100 Neutrophils % (Manual) 62 % Band Neutrophils % 1 % Lymphocytes % 27 % Monocytes % 9 % Neutrophils # (Manual) 17.3 TH/MM3 Metamyelocytes 1 % Differential Comment FINAL DIFF MANUAL Platelet Estimate HIGH Platelet Morphology Comment NORMAL Blood Urea Nitrogen 17 MG/DL Creatinine 1.00 MG/DL Random Glucose 306 MG/DL Total Protein 7.3 GM/DL Albumin 2.9 GM/DL Calcium Level 8.6 MG/DL Alkaline Phosphatase 138 U/L Aspartate Amino Transf (AST/SGOT) 22 U/L Alanine Aminotransferase (ALT/SGPT) 18 U/L Total Bilirubin 0.3 MG/DL Sodium Level 139 MEQ/L Potassium Level 4.0 MEQ/L Chloride Level 103 MEQ/L Carbon Dioxide Level 21.7 MEQ/L Anion Gap 14 MEQ/L Estimat Glomerular Filtration Rate 48 ML/MIN Total Creatine Kinase 82 U/L Troponin I LESS THAN 0.02 NG/ML Urine Collection Type CATH Urine Color YELLOW Urine Turbidity CLEAR Urine pH 6.0 Urine Specific [place] 1.017 Urine Protein 30 mg/dL Urine Glucose (UA) 100 mg/dL Urine Ketones NEG mg/dL Urine Occult Blood NEG Urine Nitrite NEG Urine Bilirubin NEG Urine Leukocyte Esterase NEG Urine WBC 0-2 /hpf Urine Squamous Epithelial Cells 0-5 /hpf Microscopic Urinalysis Comment CULT NOT INDICATED Blood Gas Puncture Site RT RADIAL Blood Gas Patient Temperature 98.6 Blood Gas HCO3 22 mmol/L Blood Gas Base Excess -4.4 mmol/L Blood Gas Oxygen Saturation 96 % Arterial Blood pH 7.23 Arterial Blood Partial Pressure CO2 55 mmHG Arterial Blood Partial Pressure O2 413 mmHG Arterial Blood Oxygen Content 18.6 Vol % Arterial Blood Carboxyhemoglobin 0.5 % Arterial Blood Methemoglobin 2.3 % Blood Gas Hemoglobin 13.0 G/DL Oxygen Delivery Device VENTILATOR Blood Gas Ventilator Setting PRVC/AC 500/18/5PEEP Blood Gas Inspired Oxygen 100 % MDM Medical Decision Making Medical Screen Exam Complete: Yes Emergency Medical Condition: Yes Medical Record Reviewed: Yes Differential Diagnosis Hypoxemic respiratory failure, congestive heart failure, pulmonary edema Narrative Course I have reviewed the patient's electronic medical record. Patient is listed as a Doretha Landers but using her real name I pulled up her last admission from October 2016 with a very similar presentation of respiratory failure requiring intubation Patient is critically ill. I performed emergent intubation to salvage her. INTUBATION: The patient was put in optimal position for the procedure. Rapid sequence intubation was initiated by me using 20 milligrams of etomidate IV and 100 milligrams of succinylcholine IV. The patient was intubated with a 7.5 cuffed endotracheal tube. Tube placement was confirmed by visualization of the tube and balloon passing through the cords, capnometry and subsequent chest x- ray. Breath sounds were equal and well aerated bilaterally postintubation. No breath sounds over stomach. Patient tolerated procedure well. I reviewed her chest x-ray which shows asymmetric infiltrate primarily on the right side. 2 IVs placed CBC shows prominent leukocytosis of 27,000 Metabolic profile shows hyperglycemia otherwise normal LFTs are normal CK is normal Troponin is normal ABG reveals some hypercarbia and acidemia with good PO2 on oxygen Settings adjusted I gave her IV Zosyn and 80 mg IV Lasix I reviewed with both and daughter at bedside I answered their questions Patient will be critically ill admitted to intensive care on ventilator. I discussed with Dr. Rico. He recommends brain CT and CT pulmonary angiogram be done which I have ordered at his request Critical Care Narrative Aggregate critical care time was 80 minutes. Time to perform other separately billable procedures was not included in the critical care time. My time did not include minutes spent treating any other patients simultaneously or on activities that did not directly contribute to the patient's treatment. The services I provided to this patient were to treat and/or prevent clinically significant deterioration that could result in: Cardiopulmonary arrest, hypoxemic brain injury, respiratory collapse and I provided critical care services requiring my management, as noted below: Chart data review, documentation time, medication orders and management, vital sign assessments/reviewing monitor data, ordering and reviewing lab tests, ordering and interpreting/reviewing x-rays and diagnostic studies, care of the patient and discussion of the patient with the admitting physicians. Diagnosis Primary Impression: Acute hypoxemic respiratory failure Admitting Information Admitting Physician Requests: Ghassan Burnett MD May 13, 2017 11:27
[2017-05-13] MEDS ORDERED: FUROSEMIDE 100 MG/10 ML VIAL IV PUSH ONE ×2 (11:30→11:45)
--- NOTE | 2017-05-13 11:42 | RADRPT ---
EXAM DATE/TIME: 05/13/2017 11:20 [facility] COMPARISON: No previous studies available for comparison. INDICATIONS : Post intubation. MEDICAL HISTORY : Unobtainable. SURGICAL HISTORY : Unobtainable. ENCOUNTER: Initial ACUITY: 1 day PAIN SCORE: Non-responsive. LOCATION: chest FINDINGS: Endotracheal tube is noted and the tip terminates 3.2 cm above the gio. Atherosclerotic calcificat ion of the aorta. There is patchy airspace disease in the right mid to upper lung zones. Cardiomegaly . No effusions. Degenerative changes of the spine. CONCLUSION: Endotracheal tube as above. Akhil Weaver MD on May 13, 2017 at 11:40 Board Certified Radiologist. This report was verified electronically.
[2017-05-13 12:05] LABS: AUTOMATED NEUTROPHIL # 18.8 TH/MM3 (1.8-7.7); BASOPHIL # 0.1 TH/MM3 (0-0.2); BASOPHIL % 0.5 % (0.0-2.0); EOSINOPHIL # 0.2 TH/MM3 (0-0.4); EOSINOPHIL % 0.7 % (0.0-4.0); HEMATOCRIT 41.5 % (35.0-46.0); LYMPH % 25.6 % (9.0-44.0); LYMPHOCYTE # 6.9 TH/MM3 (1.0-4.8); MEAN CELL VOLUME 83.7 FL (80.0-100.0); MEAN CORPUSCULAR HEMOGLOBIN 27.4 PG (27.0-34.0); MEAN CORPUSCULAR HGB CONC 32.7 % (32.0-36.0); MONO % 4.1 % (0.0-8.0); NEUT % 69.1 % (16.0-70.0); PLATELET COUNT 443 TH/MM3 (150-450); RED BLOOD COUNT 4.96 MIL/MM3 (4.00-5.30); RED CELL DISTRIBUTION WIDTH 14.6 % (11.6-17.2); WHITE BLOOD COUNT 27.1 TH/MM3 (4.0-11.0)
[2017-05-13 12:14] LABS: CHLORIDE 103 MEQ/L (98-107); SODIUM (NA) 139 MEQ/L (136-145)
[2017-05-13 12:16] LABS: HEMO FLAGS AUTO DIFF
[2017-05-13 12:17] LABS: BLOOD GAS BASE EXCESS -4.4 mmol/L (-2-2); BLOOD GAS CARBOXYHEMOGLOBIN 0.5 % (0-4); BLOOD GAS HCO3 22 mmol/L (22-26); BLOOD GAS METHEMOGLOBIN 2.3 % (0-2); BLOOD GAS O2 HGB SATURATION 96 % (90-100); BLOOD GAS OXYGEN CONTENT 18.6 Vol % (12.0-20.0); BLOOD GAS PCO2 55 mmHG (38-42); BLOOD GAS PO2 413 mmHG (61-120); TEMP CORR TO 98.6
[2017-05-13 12:18] LABS: ANION GAP 14 MEQ/L (5-15); BICARBONATE 21.7 MEQ/L (21.0-32.0); BLOOD UREA NITROGEN 17 MG/DL (7-18)
[2017-05-13 12:18] LABS: CRITICAL VALUE YES; OXYGEN DEVICE VENTILATOR
[2017-05-13 12:19] LABS: DRAW SITE RT RADIAL; FIO2 100 %; NUMBER OF ARTERIAL PUNCTURES 1; STAT YES; ULNAR PULSE PRESENT; VENT SETTINGS PRVC/AC 500/18/5PEEP
[2017-05-13 12:21] LABS: ALT (GPT) 18 U/L (10-53); AST (GOT) 22 U/L (15-37); GLOMERULAR FILTRATION RATE 48 ML/MIN (>89)
[2017-05-13 12:23] LABS: TOTAL BILIRUBIN ADULT 0.3 MG/DL (0.2-1.0)
[2017-05-13 12:24] LABS: ALKALINE PHOSPHATASE 138 U/L (45-117)
[2017-05-13] MEDS ORDERED: PIPERACIL-TAZO 3.375 GM PREMIX 50 ML IV ONE (12:30)
[2017-05-13 12:31] LABS: CREATINE KINASE 82 U/L (26-192)
[2017-05-13 12:47] LABS: BANDS 1 % (0-6); METAMYELOCYTES 1 % (0-1); NEUTROPHIL # MANUAL DIFF 17.3 TH/MM3 (1.8-7.7); PLATELET ESTIMATE SMEAR HIGH (NORMAL); PLATELET MORPHOLOGY NORMAL (NORMAL); POLYS (SEG NEUTROPHILS) 62 % (16-70); SCAN/DIFF FINAL DIFF MANUAL; WBC DIFF SAMPLE 100
[2017-05-13 12:51] LABS: BLOOD, URINE NEG (NEG); GLUCOSE,URINE 100 mg/dL (NEG); KETONE, URINE NEG (NEG); NITRITE,URINE NEG (NEG)
[2017-05-13 12:54] LABS: METHOD OF COLLECTION CATH; URINE COLOR YELLOW (YELLW/STRAW)
[2017-05-13 12:55] LABS: COMMENT (UR) CULT NOT INDICATED; CULTURE IF INDICATED CULT NOT INDICATED; SQUAMOUS EPITHELIAL CELL URINE 0-5 /hpf (0-5); WBC, URINE 0-2 /hpf (0-5)
[2017-05-13] MEDS ORDERED: INSULIN HUMAN REGULAR 1,000 UNITS/10 ML VIAL IV PUSH ONE (13:15)
[2017-05-13] MEDS ORDERED: IOHEXOL 350 MG/ML 10 ML VIAL (for RAD DIAG) IVCONTRAST ONE (14:58)
--- NOTE | 2017-05-13 15:11 | RADRPT ---
EXAM DATE/TIME: 05/13/2017 14:36 [facility] COMPARISON: No previous studies available for comparison. INDICATIONS : Syncope. Altered mental status. RADIATION DOSE: 63.52 CTDIvol (mGy) MEDICAL HISTORY : Chronic obstructive pulmonary disease. Congestive heart failure. Diabetes. SURGICAL HISTORY : section. ENCOUNTER: Initial ACUITY: 1 day PAIN SCALE: Non-responsive LOCATION: cranial TECHNIQUE: Multiple contiguous axial images were obtained of the head. Using automated exposure control and adj ustment of the mA and/or kV according to patient size, radiation dose was kept as low as reasonably a chievable to obtain optimal diagnostic quality images. DICOM format image data is available electro nically for review and comparison. FINDINGS: CEREBRUM: The ventricles are normal for age. No evidence of midline shift, mass lesion, hemorrhage or acute in farction. No extra-axial fluid collections are seen. POSTERIOR FOSSA: The cerebellum and brainstem are intact. The 4th ventricle is midline. The cerebellopontine angle i s unremarkable. Moderate vascular calcifications are noted. EXTRACRANIAL: The visualized portion of the orbits is intact. SKULL: The calvaria is intact. No evidence of skull fracture. CONCLUSION: Negative for acute process. Gregory Nava MD FACR on May 13, 2017 at 15:09 Board Certified Radiologist. This report was verified electronically.
--- NOTE | 2017-05-13 15:14 | RADRPT ---
EXAM DATE/TIME: 05/13/2017 14:43 [facility] COMPARISON: No previous studies available for comparison. INDICATIONS : Syncope. Respiratory distress. Evaluate for embolism. IV CONTRAST: 65 cc Omnipaque 350 (iohexol) IV RADIATION DOSE: 20.32 CTDIvol (mGy) MEDICAL HISTORY : Chronic obstructive pulmonary disease. Congestive heart failure. Diabetes. SURGICAL HISTORY : section. ENCOUNTER: Initial ACUITY: 1 day PAIN SCALE: Non-responsive LOCATION: chest TECHNIQUE: Volumetric scanning of the chest was performed using a pulmonary embolism protocol MIP images were re constructed. Using automated exposure control and adjustment of the mA and/or kV according to patien t size, radiation dose was kept as low as reasonably achievable to obtain optimal diagnostic quality images. DICOM format image data is available electronically for review and comparison. Follow-up recommendations for detected pulmonary nodules are based at a minimum on nodule size and pa tient risk factors according to Fleischner Society Guidelines. FINDINGS: LUNGS: Moderate consolidation is seen in the right lung consistent with an inflammatory process. There is g ood visualization of the central pulmonary vessels. There is no central pulmonary emboli. MEDIASTINUM: There is good visualization of the great vessels of the middle mediastinum. No evidence of mediastin al or hilar adenopathy/mass moderate coronary calcifications are noted the bladder calcifications as well. Trace pericardial effusion is evident. AXILLA: There is no axillary adenopathy MUSCULOSKELETAL: Within normal limits for patient age. MISCELLANEOUS: Portion of the liver spleen identified are free of focal defects. CONCLUSION: Inflammatory process suspected in right lung without central pulmonary emboli. Moderate coronary artery calcifications. Gregory Nava MD FACR on May 13, 2017 at 15:10 Board Certified Radiologist. This report was verified electronically.
[2017-05-13] MEDS ORDERED: POTASSIUM PHOSPHATE MONOBASIC 500 MG TAB PO/TUBE PRN (15:15)
[2017-05-13] MEDS ORDERED: POTASSIUM PHOSPHATE MONOBASIC 500 MG TAB PO PRN (15:15)
[2017-05-13] MEDS ORDERED: RESP: ALBUTEROL 2.5 MG/IPRATROPIUM 0.5 MG NEB (PRN) INH (15:15)
[2017-05-13] MEDS ORDERED: ACETAMINOPHEN 325 MG TAB PO PRN (15:15)
[2017-05-13] MEDS ORDERED: VANCOMYCIN INJ 1,000 MG in SODIUM CHLOR 0.9% 250 ML INJ 250 ML IV ONE (15:15)
[2017-05-13] MEDS ORDERED: CHLORHEXIDINE GLUCONATE 2 % 1 PACK (2 CLOTHS) TOP PRN (15:15)
[2017-05-13] MEDS ORDERED: MISCELLANEOUS NURSING INFORMATION XX SCH (15:15)
[2017-05-13] MEDS ORDERED: LACTULOSE SYRUP 20 GM/30 ML CUP PO PRN (15:15)
[2017-05-13] MEDS ORDERED: BISACODYL 10 MG SUPP RECTAL PRN (15:15)
[2017-05-13] MEDS ORDERED: SENNOSIDES 8.6 MG TAB PO PRN (15:15)
[2017-05-13] MEDS ORDERED: MAGNESIUM OXIDE 400 MG TAB PO PRN (15:15)
[2017-05-13] MEDS ORDERED: DEXTROSE 50% IN WATER 50 ML VIAL(D50) IV PRN (15:15)
[2017-05-13] MEDS ORDERED: LORazepam 2 MG/ML VIAL IV PRN (15:15)
[2017-05-13] MEDS ORDERED: POTASSIUM CHLOR 20 MEQ PREMIX 100 ML IV PRN (15:15)
[2017-05-13] MEDS ORDERED: MAGNESIUM SULFATE INJ 2 GM in SODIUM CHLORIDE 0.9% INJ 96 ML IV PRN (15:15)
[2017-05-13] MEDS ORDERED: MAGNESIUM SULFATE INJ 4 GM in SODIUM CHLORIDE 0.9% INJ 92 ML IV PRN (15:15)
[2017-05-13] MEDS ORDERED: GLUCAGON 1 MG/ML VIAL OTHER PRN (15:15)
[2017-05-13] MEDS ORDERED: SODIUM CHLORIDE 0.9% FLUSH 10 ML FLUSH IV FLUSH PRN (15:15)
[2017-05-13] MEDS ORDERED: Vancomycin Consult Pharmacy 1 EA OTHER SCH ×2 (15:15→16:45)
[2017-05-13] MEDS ORDERED: POTASSIUM CHLOR 40 MEQ PREMIX 100 ML IV PRN ×2 (15:15)
[2017-05-13] MEDS ORDERED: POTASSIUM PHOSPHATE INJ 30 MMOL in SODIUM CHLOR 0.9% 250 ML INJ 250 ML IV PRN (15:15)
[2017-05-13] MEDS ORDERED: POTASSIUM CHLORIDE 25 MEQ EFFERVESCENT TAB PO PRN (15:15)
[2017-05-13] MEDS ORDERED: MAGNESIUM HYDROXIDE SUSP 30 ML CUP PO PRN (15:15)
[2017-05-13] MEDS ORDERED: SODIUM PHOSPHATE INJ 30 MMOL in SODIUM CHLOR 0.9% 250 ML INJ 240 ML IV PRN (15:15)
--- NOTE | 2017-05-13 15:29 | HHI.HP ---
[facility] Service Critical Care Medicine Primary Care Physician Guru Irving MD, PhD Admission Diagnosis acute hypoxemic resp failure Diagnosis: (1) Acute respiratory failure with hypoxia and hypercapnia Diagnosis: Principal (2) Sepsis Diagnosis: Principal (3) Leukocytosis Diagnosis: Principal (4) Hyperglycemia Diagnosis: Principal (5) Chronic combined systolic and diastolic congestive heart failure Diagnosis: Secondary (6) Diabetes Diagnosis: Secondary (7) Post-polio syndrome Diagnosis: Secondary Chief Complaint: Respiratory distress Travel History International Travel<30 Days: No Contact w/Intl Traveler <30 Da: No Traveled to Known Affected Are: No Sepsis Criteria SIRS Criteria (2 or more): Heart rate over 90, WBC > 99537, < 4000 or > 10% bands Sepsis Criteria (SIRS+source): Infect source susp/known Criteria Outcome: Meets sepsis criteria History of Present Illness Doretha Azevedom2 AKA Yesenia Trivedie with known history of previous similar episode in October 2016 of same presenting symptoms, postpolio syndrome, chronic systolic and diastolic heart failure ejection fraction 35%, depression, gastroesophageal reflux disease, PAD, diabetes, hiatal hernia and low back pain. Patient is intubated and sedated upon seeing the patient in emergency department today. ER physician indicated that the patient was swimming at the pool at the [facility] and became short of breath. Paramedics were called and found her to have profound respiratory distress. Saturations were 50% on room air. They tried a nonrebreather and CPAP in route but she came to tired and had assistance with bag mask upon arrival. Patient was minimally responsive upon arriving at the emergency department. Patient was critically ill with profound respiratory failure and subsequently intubated and sedated in emergency department with improvement of her O2 saturations. I was notified of the patient's real name by the ER nursing staff and was given documentations a previous admissions. Patient had exactly the same presentation earlier this year in October with swimming of the pool and becoming profoundly short of breath, respiratory distress and required intubation upon arrival emergency department. Clinical data that was obtained emergency department does indicate that patient had leukocytosis 27,000, tachycardia 103, chest x-ray showing patchy airspace disease in the right middle to upper lung solorzano. These findings patient is a sepsis criteria. ER physician contacted animal caregiver for admission. Patient was given Lasix 80 mg IV 1. She was intubated in the ER with etomidate 20 mg and succinylcholine 100 mg. Patient was given empiric antibiotics include Zosyn. Further studies are being ascertained this time for completeness of evaluation. 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 Father at age 70 from heart disease Social History Patient has history of smoking and smoked up to 2 packs a day for 50 years. Quit in 2010 Physical Exam Vital Signs Vital Signs Date Time Temp Pulse Resp B/P (MAP) Pulse Ox O2 Delivery O2 Flow Rate FiO2 05/13/17 14:07 92 18 126/65 (85) 98 50 05/13/17 13:37 96 Ventilator 50 05/13/17 12:41 103 19 160/60 (93) 97 05/13/17 12:30 99 50 05/13/17 12:10 97.7 05/13/17 11:30 96 Ventilator 05/13/17 11:15 99 100 05/13/17 11:05 164/107 (126) Physical Exam GENERAL: Well-developed, well-nourished, patient acute distress with respiratory failure. She is intubated and sedated HEENT: Head is normocephalic without any lesions or masses noted. Facial features are symmetric. Eyes: Pupils equal round reactive to light. Conjunctivae were mildly injected. Oropharyngeal: Patient is orally intubated NECK: Supple without any masses. Trachea midline no deviation. No JVD, no bruits are appreciated CARDIAC: Regular rhythm, regular rate. S1/S2 are heard. No murmurs gallops or rubs. LUNGS: Clear to auscultation bilaterally. No wheeze, rhonchi or rales. No use of accessory muscles on inspiration or expiration. ABDOMEN: Soft, nontender. Nondistended. Bowel sounds heard in all 4 quadrants. No organomegaly or masses. Negative rebound, negative guarding EXTREMITIES: 2+ pitting edema noted in the left lower extremity, 1+ pitting edema in the right lower extremity left lower extremity does have some mild erythema noted in the distal tibia, pulses are equal bilaterally. No cyanosis or clubbing NEUROLOGY: Patient sedated Laboratory Laboratory Tests Test 05/13/17 11:10 05/13/17 11:40 05/13/17 12:10 White Blood Count 27.1 Red Blood Count 4.96 Hemoglobin 13.6 Hematocrit 41.5 Mean Corpuscular Volume 83.7 Mean Corpuscular Hemoglobin 27.4 Mean Corpuscular Hemoglobin Concent 32.7 Red Cell Distribution Width 14.6 Platelet Count 443 Mean Platelet Volume 9.2 Neutrophils (%) (Auto) 69.1 Lymphocytes (%) (Auto) 25.6 Monocytes (%) (Auto) 4.1 Eosinophils (%) (Auto) 0.7 Basophils (%) (Auto) 0.5 Neutrophils # (Auto) 18.8 Lymphocytes # (Auto) 6.9 Monocytes # (Auto) 1.1 Eosinophils # (Auto) 0.2 Basophils # (Auto) 0.1 CBC Comment AUTO DIFF Differential Total Cells Counted 100 Neutrophils % (Manual) 62 Band Neutrophils % 1 Lymphocytes % 27 Monocytes % 9 Neutrophils # (Manual) 17.3 Metamyelocytes 1 Differential Comment FINAL DIFF MANUAL Platelet Estimate HIGH Platelet Morphology Comment NORMAL Blood Urea Nitrogen 17 Creatinine 1.00 Random Glucose 306 Total Protein 7.3 Albumin 2.9 Calcium Level 8.6 Alkaline Phosphatase 138 Aspartate Amino Transf (AST/SGOT) 22 Alanine Aminotransferase (ALT/SGPT) 18 Total Bilirubin 0.3 Sodium Level 139 Potassium Level 4.0 Chloride Level 103 Carbon Dioxide Level 21.7 Anion Gap 14 Estimat Glomerular Filtration Rate 48 Total Creatine Kinase 82 Troponin I LESS THAN 0.02 Urine Collection Type CATH Urine Color YELLOW Urine Turbidity CLEAR Urine pH 6.0 Urine Specific [place] 1.017 Urine Protein 30 Urine Glucose (UA) 100 Urine Ketones NEG Urine Occult Blood NEG Urine Nitrite NEG Urine Bilirubin NEG Urine Leukocyte Esterase NEG Urine WBC 0-2 Urine Squamous Epithelial Cells 0-5 Microscopic Urinalysis Comment CULT NOT INDICATED Blood Gas Puncture Site RT RADIAL Blood Gas Patient Temperature 98.6 Blood Gas HCO3 22 Blood Gas Base Excess -4.4 Blood Gas Oxygen Saturation 96 Arterial Blood pH 7.23 Arterial Blood Partial Pressure CO2 55 Arterial Blood Partial Pressure O2 413 Arterial Blood Oxygen Content 18.6 Arterial Blood Carboxyhemoglobin 0.5 Arterial Blood Methemoglobin 2.3 Blood Gas Hemoglobin 13.0 Oxygen Delivery Device VENTILATOR Blood Gas Ventilator Setting PRVC/AC 500/18/5PEEP Blood Gas Inspired Oxygen 100 Date/Time Source Procedure Growth Status 05/13/17 11:30 Sputum Endotracheal Gram Stain Pending Received 05/13/17 11:30 Sputum Endotracheal Sputum Culture Pending Received Result Diagram: 05/13/17 1110 05/13/17 1110 Imaging Last Impressions Chest X-Ray 05/13/17 1113 Signed Impressions: Service Date/Time: Saturday, May 13, 2017 11:20 - CONCLUSION: Endotracheal tube as above. Akhil Weaver MD Septic Shock Reassessment Heart: Regular rate and rhythm Lungs: Clear, Diminished Skin: Warm, [place] Peripheral Pulses: Bounding Right Radial Bounding Left Radial Capillary Refill: Brisk, <2 seconds Caprini VTE Risk Assessment Caprini VTE Risk Assessment: Mod/High Risk (score >= 2) Caprini Risk Assessment Model Point Value = 1 Point Value = 2 Point Value = 3 Point Value = 5 Age 41-60 Minor surgery BMI > 25 kg/m2 Swollen legs Varicose veins or History of unexplained or recurrent spontaneous Oral contraceptives or hormone replacement Sepsis (< 1 month) Serious lung disease, including pneumonia (< 1 month) Abnormal pulmonary function Acute myocardial infarction Congestive heart failure (< 1 month) History of inflammatory bowel disease Medical patient at bed rest Age 61-74 Arthroscopic surgery Major open surgery (> 45 min) Laparoscopic surgery (> 45 min) Malignancy Confined to bed (> 72 hours) Immobilizing plaster cast Central venous access Age >= 75 History of VTE Family history of VTE Factor V Leiden Prothrombin [id number] Lupus anticoagulant Anticardiolipin antibodies Elevated serum homocysteine Heparin-induced thrombocytopenia Other congenital or acquired thrombophilia Stroke (< 1 month) Elective arthroplasty Hip, pelvis, or leg fracture Acute spinal cord injury (< 1 month) Prophylaxis Regimen Total Risk Factor Score Risk Level Prophylaxis Regimen 0-1 Low Early ambulation 2 Moderate Order ONE of the following: *Sequential Compression Device (SCD) *Heparin 5000 units SQ BID 3-4 Higher Order ONE of the following medications: *Heparin 5000 units SQ TID *Enoxaparin/Lovenox 40 mg SQ daily (WT < 150 kg, CrCl > 30 mL/min) *Enoxaparin/Lovenox 30 mg SQ daily (WT < 150 kg, CrCl > 10-29 mL/min) *Enoxaparin/Lovenox 30 mg SQ BID (WT < 150 kg, CrCl > 30 mL/min) AND/OR *Sequential Compression Device (SCD) 5 or more Highest Order ONE of the following medications: *Heparin 5000 units SQ TID (Preferred with Epidurals) *Enoxaparin/Lovenox 40 mg SQ daily (WT < 150 kg, CrCl > 30 mL/min) *Enoxaparin/Lovenox 30 mg SQ daily (WT < 150 kg, CrCl > 10-29 mL/min) *Enoxaparin/Lovenox 30 mg SQ BID (WT < 150 kg, CrCl > 30 mL/min) AND *Sequential Compression Device (SCD) Assessment and Plan Problem List: (1) Sepsis ICD Code: A41.9 - Sepsis, unspecified organism Status: Acute (2) Acute respiratory failure with hypoxia and hypercapnia ICD Code: J96.01 - Acute respiratory failure with hypoxia; J96.02 - Acute respiratory failure with hypercapnia Status: Acute (3) Leukocytosis ICD Code: D72.829 - Elevated white blood cell count, unspecified Status: Acute (4) Hyperglycemia ICD Code: R73.9 - Hyperglycemia, unspecified Status: Acute (5) Chronic combined systolic and diastolic congestive heart failure ICD Code: I50.42 - Chronic combined systolic (congestive) and diastolic ( congestive) heart failure Status: Chronic (6) Diabetes ICD Code: E11.9 - Type 2 diabetes mellitus without complications Status: Chronic (7) Post-polio syndrome ICD Code: G14 - Postpolio syndrome Status: Chronic Assessment and Plan NEUROLOGY Decreased level consciousness -Keep patient sedated with to prevent this time, daily sedation medications, rest -2 CT brain showed no acute intracranial process -Continue monitor neurological function PULMONOLOGY Acute hypercapnic, hypoxic respiratory failure, recurrent Chronic obstructive pulmonary disease -Continue PRVC ventilation 18/500/1.0/5+/50%, continue to wean O2 supplementation to maintain O2 sats greater than 92% -Ventilator bundle -Daily vent weaning with CPAP trial -Duo nebs every 4 hours and every 2 hours as needed -Awaiting pulmonary angiogram to evaluate for PE/pulmonary etiology of her respiratory failure CARDIOLOGY Chronic combined systolic, diastolic congestive heart failure -Obtain echocardiogram -Monitor blood pressure keep map greater than 65 -Status post Lasix 80 mg IV 1, GASTROENTEROLOGY -Start tube feeding with Glucerna 1.5 start at 30 cc an hour and titrate up to goal of 45 cc an hour -Start Pepcid NEPHROLOGY -Monitor renal function -Start electrolyte replacement protocol INFECTIOUS DISEASE Sepsis Leukocytosis Right lung consolidations versus aspiration versus negative pressure pulmonary edema -Start vancomycin/Zosyn for empirical coverage -Obtain blood cultures, sputum cultures, strep pneumonia, Legionella testing, influenza testing ENDOCRINOLOGY Diabetes Hyperglycemia -Accu-Cheks with sliding scale insulin -Check TSH HEMATOLOGY -Monitor CBC, transfuse if needed PROPHYLAXIS -GI protection with Pepcid --DVT prevention with SCD, Lovenox 40mg daily LINES -Peripheral IVs The exam, history, and the medical decision-making described in the above note were completed with the assistance of JULIO Gaitan. I reviewed and agree with the findings presented. I attest that I had a face- to-face encounter with the patient on the same day, and personally performed and documented my assessment and findings in the medical record. Critical care time excluding procedures 60 minutes Ghassan Alberto May 13, 2017 15:29 Senait Rico MD May 13, 2017 16:37
[2017-05-13] MEDS ORDERED: INSULIN ASPART SUPPLEMENTAL SCALE SQ SCH (16:00)
[2017-05-13] MEDS ORDERED: MIDAZOLAM 100 MG/100 ML INJ 100 ML IV PRN (16:00)
[2017-05-13 16:09] LABS: BLOOD GAS BASE EXCESS 3.2 mmol/L (-2-2); BLOOD GAS CARBOXYHEMOGLOBIN 0.8 % (0-4); BLOOD GAS HCO3 27 mmol/L (22-26); BLOOD GAS METHEMOGLOBIN 2.2 % (0-2); BLOOD GAS O2 HGB SATURATION 94 % (90-100); BLOOD GAS OXYGEN CONTENT 18.1 Vol % (12.0-20.0); BLOOD GAS PCO2 40 mmHg (38-42); BLOOD GAS PO2 99 mmHg (61-120); BLOOD GAS TOTAL HGB 13.6 G/DL (12.0-16.0); CRITICAL VALUE NO; OXYGEN DEVICE VENTILATOR
[2017-05-13 16:11] LABS: DRAW SITE RT BRACHIAL; FIO2 40 %; NUMBER OF ARTERIAL PUNCTURES 1; STAT YES; ULNAR PULSE PRESENT; VENT SETTINGS PRVC/AC-18/500/5P/1.
[2017-05-13] MEDS: RESP: ALBUTEROL 2.5 MG/IPRATROPIUM 0.5 MG NEB (SCH) INH ×3 (16:14→23:31)
[2017-05-13] MEDS ORDERED: CHLORHEXIDINE GLUCONATE 2 % 1 PACK (2 CLOTHS)(extra cloths) TOPICAL PRN (16:15)
[2017-05-13] MEDS ORDERED: VANCOMYCIN INJ 1,000 MG in SODIUM CHLOR 0.9% 250 ML INJ 250 ML IV SCH (16:45)
[2017-05-13] MEDS: FAMOTIDINE 20 MG TAB TUBE SCH (17:03)
[2017-05-13] MEDS: fentaNYL DRIP 250 ML IV PRN (17:30)
[2017-05-13 17:36] LABS: CREATINE KINASE 164 U/L (26-192)
[2017-05-13 17:48] LABS: CKMB 7.2 NG/ML (0.5-3.6)
[2017-05-13] MEDS: PIPERACIL-TAZO 4.5 GM PREMIX 100 ML IV SCH ×2 (18:00→23:17)
[2017-05-13] MEDS: ENOXAPARIN SODIUM 40 MG/0.4 ML SYRINGE SQ SCH (18:00)
[2017-05-13] MEDS: ARTIFICIAL TEARS OPTH SOLN 15 ML BTL EACH EYE SCH (18:03)
[2017-05-13] MEDS: INSULIN ASPART SUPPLEMENTAL SCALE SQ SCH ×2 (19:21→23:22)
[2017-05-13] MEDS ORDERED: CHLORHEXIDINE 0.12% (ORAL KIT) 15 ML CUP MT SCH (20:00)
[2017-05-13] MEDS: AZITHROMYCIN INJ 500 MG in SODIUM CHLOR 0.9% 250 ML INJ 250 ML IV SCH (20:04)
[2017-05-13] MEDS: SODIUM CHLORIDE 0.9% FLUSH 10 ML FLUSH IV FLUSH SCH (20:08)
[2017-05-13] MEDS: DOCUSATE SODIUM 50 MG/SENNA 8.6 MG TAB PO SCH (20:08)
[2017-05-13] MEDS: CHLORHEXIDINE 0.12% (ORAL KIT) 15 ML CUP MT SCH (20:08)
[2017-05-14] VITALS (28 sets, daily range): BP systolic 81–152; BP diastolic 39–76; PULSE 88–110; RESP 17–31; TEMP 97.4–100.2; O2SAT 94–99
[2017-05-14 00:57] LABS: CREATINE KINASE 155 U/L (26-192)
[2017-05-14 01:09] LABS: CKMB 6.5 NG/ML (0.5-3.6)
[2017-05-14] MEDS: CHLORHEXIDINE GLUCONATE 2 % 1 PACK (2 CLOTHS)(taper/protocol) TOPICAL SCH (04:00)
[2017-05-14] MEDS: CHLORHEXIDINE GLUCONATE 2 % 1 PACK (2 CLOTHS) TOP SCH (04:00)
[2017-05-14] MEDS: RESP: ALBUTEROL 2.5 MG/IPRATROPIUM 0.5 MG NEB (SCH) INH ×6 (04:05→23:07)
[2017-05-14 04:26] LABS: AUTOMATED NEUTROPHIL # 8.9 TH/MM3 (1.8-7.7); BASOPHIL # 0.1 TH/MM3 (0-0.2); BASOPHIL % 0.6 % (0.0-2.0); EOSINOPHIL # 0.1 TH/MM3 (0-0.4); EOSINOPHIL % 0.8 % (0.0-4.0); HEMATOCRIT 38.9 % (35.0-46.0); HEMO FLAGS DIFF FINAL; LYMPH % 10.8 % (9.0-44.0); LYMPHOCYTE # 1.2 TH/MM3 (1.0-4.8); MEAN CELL VOLUME 83.5 FL (80.0-100.0); MEAN CORPUSCULAR HEMOGLOBIN 26.7 PG (27.0-34.0); MONO % 8.5 % (0.0-8.0); NEUT % 79.3 % (16.0-70.0); PLATELET COUNT 325 TH/MM3 (150-450); RED BLOOD COUNT 4.66 MIL/MM3 (4.00-5.30); WHITE BLOOD COUNT 11.3 TH/MM3 (4.0-11.0)
[2017-05-14 04:35] LABS: CHLORIDE 104 MEQ/L (98-107); POTASSIUM 3.2 MEQ/L (3.5-5.1); SODIUM (NA) 141 MEQ/L (136-145)
[2017-05-14 04:39] LABS: ANION GAP 10 MEQ/L (5-15); BICARBONATE 26.7 MEQ/L (21.0-32.0)
[2017-05-14 04:55] LABS: ALKALINE PHOSPHATASE 128 U/L (45-117); ALT (GPT) 17 U/L (10-53); AST (GOT) 18 U/L (15-37); BLOOD UREA NITROGEN 17 MG/DL (7-18); GLOMERULAR FILTRATION RATE 64 ML/MIN (>89); TOTAL BILIRUBIN ADULT 0.5 MG/DL (0.2-1.0)
[2017-05-14] MEDS: PIPERACIL-TAZO 4.5 GM PREMIX 100 ML IV SCH ×4 (05:05→23:41)
[2017-05-14] MEDS: INSULIN ASPART SUPPLEMENTAL SCALE SQ SCH ×3 (05:06→13:09)
[2017-05-14] MEDS: POTASSIUM CHLOR 20 MEQ PREMIX 100 ML IV PRN ×4 (05:07→12:40)
--- NOTE | 2017-05-14 06:27 | RADRPT ---
EXAM DATE/TIME: 05/14/2017 06:06 [facility] COMPARISON: CHEST SINGLE AP, May 13, 2017, 11:20. INDICATIONS : Shortness of breath. MEDICAL HISTORY : Congestive heart failure. Chronic obstructive pulmonary disease. Myocardial infarction. SURGICAL HISTORY : Cardiac catheterization. ENCOUNTER: Subsequent ACUITY: 2 days PAIN SCORE: Non-responsive. LOCATION: Bilateral chest FINDINGS: The endotracheal tube is somewhat obscured by overlying lead wires but appears to be low lying near t he level of the gio. A suction type nasogastric catheter courses down the GE junction with tip ora tted from the image. A minimally improved diffuse patchy airspace disease throughout the right lung. Interval development of small left pleural effusion with associated left lower lobe airspace disease. Cardiomediastinal contours are stable. Remainder of exam is unchanged. CONCLUSION: 1. Endotracheal tube tip is obscured but appears to be low lying near the gio. 2. Slightly improved diffuse patchy airspace disease in the right lung. 3. Interval development of small left pleural effusion with associated left lower lobe airspace disea se. Khoa Amaral MD on May 14, 2017 at 6:22 Board Certified Radiologist. This report was verified electronically.
[2017-05-14] MEDS: fentaNYL DRIP 250 ML IV PRN (07:38)
[2017-05-14] MEDS: DOCUSATE SODIUM 50 MG/SENNA 8.6 MG TAB PO SCH ×2 (08:20→22:19)
[2017-05-14] MEDS: SODIUM CHLORIDE 0.9% FLUSH 10 ML FLUSH IV FLUSH SCH ×2 (08:20→22:19)
[2017-05-14] MEDS: ARTIFICIAL TEARS OPTH SOLN 15 ML BTL EACH EYE SCH ×2 (08:20→13:07)
[2017-05-14] MEDS: FAMOTIDINE 20 MG TAB TUBE SCH (08:20)
[2017-05-14] MEDS: CHLORHEXIDINE 0.12% (ORAL KIT) 15 ML CUP MT SCH ×2 (08:21→20:00)
[2017-05-14 10:23] LABS: BLOOD GAS BASE EXCESS 4.9 mmol/L (-2-2); BLOOD GAS CARBOXYHEMOGLOBIN 0.8 % (0-4); BLOOD GAS HCO3 29 mmol/L (22-26); BLOOD GAS METHEMOGLOBIN 2.3 % (0-2); BLOOD GAS O2 HGB SATURATION 94 % (90-100); BLOOD GAS OXYGEN CONTENT 16.3 Vol % (12.0-20.0); BLOOD GAS PCO2 47 mmHg (38-42); BLOOD GAS PO2 104 mmHg (61-120); BLOOD GAS TOTAL HGB 12.3 G/DL (12.0-16.0); CRITICAL VALUE NO; DRAW SITE RT BRACHIAL; FIO2 35 %; OXYGEN DEVICE VENTILATOR; VENT SETTINGS CPAP/PS10/5PEEP
[2017-05-14 10:24] LABS: NUMBER OF ARTERIAL PUNCTURES 1; STAT NO; ULNAR PULSE PRESENT
[2017-05-14] MEDS ORDERED: ASPIRIN 325 MG TAB PO ONE (12:00)
--- NOTE | 2017-05-14 13:56 | EKG ---
Date Performed: 05/13/2017 Time Performed: 11:47:26 PTAGE: 89 years EKG: SINUS TACHYCARDIA WITH FREQUENT VENTRICULAR PREMATURE COMPLEXES RIGHT BUNDLE BRANCH BLOCK A BNORMAL ECG INTERPRETATION BASED ON A DEFAULT AGE OF 40 YEARS Clinical correlation recommended. NO PREVIOUS TRACING DOCTOR: Raulito Dinero Interpretating Date/Time 05/14/2017 13:53:35
--- NOTE | 2017-05-14 14:41 | RADRPT ---
EXAM DATE/TIME: 05/14/2017 13:41 [facility] COMPARISON: No previous studies available for comparison. INDICATIONS : Bilateral leg swelling. MEDICAL HISTORY : Congestive heart failure. Chronic obstructive pulmonary disease. Pneumonia. Diabetes. Anxiety. Polio . SURGICAL HISTORY : Cholecystectomy. section. Cardiac catheterization. ENCOUNTER: Initial ACUITY: 1 day PAIN SCORE: 0/10 LOCATION: Bilateral legs. TECHNIQUE: Venous ultrasound of the left and right leg was performed from the inguinal ligament to the proximal calf. Real-time, color Doppler and spectral tracing, compression and augmentation techniques were us ed. FINDINGS: RIGHT LEG: There is normal compressibility of the deep venous system from the inguinal region to the proximal ca lf. No echogenic clot is seen in the lumen of the common femoral, femoral, popliteal, and posterior tibial veins. There is a normal response of the venous system to proximal and distal augmentation an d respiration. LEFT LEG: There is normal compressibility of the deep venous system from the inguinal region to the proximal ca lf. No echogenic clot is seen in the lumen of the common femoral, femoral, popliteal, and posterior tibial veins. There is a normal response of the venous system to proximal and distal augmentation an d respiration. Atherosclerotic plaque seen of the bilateral common femoral arteries. CONCLUSION: No DVT of either lower extremity. Anup Yancey MD on May 14, 2017 at 14:39 Board Certified Radiologist. This report was verified electronically.
[2017-05-14] MEDS ORDERED: VANCOMYCIN INJ 1,100 MG in SODIUM CHLOR 0.9% 250 ML INJ 250 ML IV SCH (15:00)
[2017-05-14] MEDS: AZITHROMYCIN INJ 500 MG in SODIUM CHLOR 0.9% 250 ML INJ 250 ML IV SCH (15:08)
--- NOTE | 2017-05-14 16:50 | HHI.CCPN ---
Subjective Remarks/Hospital Course Doretha Azevedom2 AKA Luisa Trivedi with known history of previous similar episode in October 2016 of same presenting symptoms, postpolio syndrome, chronic systolic and diastolic heart failure ejection fraction 35%, depression, gastroesophageal reflux disease, PAD, diabetes, hiatal hernia and low back pain. Patient is intubated and sedated upon seeing the patient in emergency department today. ER physician indicated that the patient was swimming at the pool at the [facility] and became short of breath. Paramedics were called and found her to have profound respiratory distress. Saturations were 50% on room air. They tried a nonrebreather and CPAP in route but she came to tired and had assistance with bag mask upon arrival. Patient was minimally responsive upon arriving at the emergency department. Patient was critically ill with profound respiratory failure and subsequently intubated and sedated in emergency department with improvement of her O2 saturations. I was notified of the patient's real name by the ER nursing staff and was given documentations a previous admissions. Patient had exactly the same presentation earlier this year in October with swimming of the pool and becoming profoundly short of breath, respiratory distress and required intubation upon arrival emergency department. Clinical data that was obtained emergency department does indicate that patient had leukocytosis 27,000, tachycardia 103, chest x-ray showing patchy airspace disease in the right middle to upper lung solorzano. These findings patient is a sepsis criteria. ER physician contacted load dispatcher for admission. Patient was given Lasix 80 mg IV 1. She was intubated in the ER with etomidate 20 mg and succinylcholine 100 mg. Patient was given empiric antibiotics include Zosyn. Further studies are being ascertained this time for completeness of evaluation. 05/14 Patient was extubated this afternoon on 3L oxygen with good sats. Afebrile. Objective Vital Signs Date Time Temp Pulse Resp B/P (MAP) Pulse Ox O2 Delivery O2 Flow Rate FiO2 05/14/17 16:00 98.0 92 22 95/43 (60) 98 05/14/17 11:08 35 05/13/17 13:37 Ventilator Intake and Output 05/14/17 05/14/17 05/14/17 07:59 15:59 23:59 Intake Total 442.4 ml 320 ml Output Total 800 ml Balance -357.6 ml 320 ml Result Diagram: 05/14/177 05/14/17406 Other Results Laboratory Tests Test 05/13/17 16:56 05/13/17 23:53 05/14/17 04:07 05/14/17 10:11 Total Creatine Kinase 164 U/L 155 U/L Creatine Kinase MB 7.2 NG/ML 6.5 NG/ML Troponin I 0.41 NG/ML 0.83 NG/ML B-Type Natriuretic Peptide 105 PG/ML Phosphorus Level 4.0 MG/DL 4.2 MG/DL Thyroid Stimulating Hormone 3rd Gen 1.940 uIU/ML White Blood Count 11.3 TH/MM3 Red Blood Count 4.66 MIL/MM3 Hemoglobin 12.5 GM/DL Hematocrit 38.9 % Mean Corpuscular Volume 83.5 FL Mean Corpuscular Hemoglobin 26.7 PG Mean Corpuscular Hemoglobin Concent 32.0 % Red Cell Distribution Width 15.0 % Platelet Count 325 TH/MM3 Mean Platelet Volume 8.8 FL Neutrophils (%) (Auto) 79.3 % Lymphocytes (%) (Auto) 10.8 % Monocytes (%) (Auto) 8.5 % Eosinophils (%) (Auto) 0.8 % Basophils (%) (Auto) 0.6 % Neutrophils # (Auto) 8.9 TH/MM3 Lymphocytes # (Auto) 1.2 TH/MM3 Monocytes # (Auto) 1.0 TH/MM3 Eosinophils # (Auto) 0.1 TH/MM3 Basophils # (Auto) 0.1 TH/MM3 CBC Comment DIFF FINAL Differential Comment Blood Urea Nitrogen 17 MG/DL Creatinine 0.78 MG/DL Random Glucose 181 MG/DL Total Protein 6.6 GM/DL Albumin 2.8 GM/DL Calcium Level 8.3 MG/DL Alkaline Phosphatase 128 U/L Aspartate Amino Transf (AST/SGOT) 18 U/L Alanine Aminotransferase (ALT/SGPT) 17 U/L Total Bilirubin 0.5 MG/DL Sodium Level 141 MEQ/L Potassium Level 3.2 MEQ/L Chloride Level 104 MEQ/L Carbon Dioxide Level 26.7 MEQ/L Anion Gap 10 MEQ/L Estimat Glomerular Filtration Rate 64 ML/MIN Blood Gas Puncture Site RT BRACHIAL Blood Gas Patient Temperature 37.0 Blood Gas HCO3 29 mmol/L Blood Gas Base Excess 4.9 mmol/L Blood Gas Oxygen Saturation 94 % Arterial Blood pH 7.41 Arterial Blood Partial Pressure CO2 47 mmHg Arterial Blood Partial Pressure O2 104 mmHg Arterial Blood Oxygen Content 16.3 Vol % Arterial Blood Carboxyhemoglobin 0.8 % Arterial Blood Methemoglobin 2.3 % Blood Gas Hemoglobin 12.3 G/DL Oxygen Delivery Device VENTILATOR Blood Gas Ventilator Setting CPAP/PS10/5PEEP Blood Gas Inspired Oxygen 35 % Test 05/14/17 11:30 Troponin I 0.74 NG/ML Imaging Last Impressions Chest X-Ray 05/14/17 0600 Signed Impressions: Service Date/Time: Sunday, May 14, 2017 06:06 - CONCLUSION: 1. Endotracheal tube tip is obscured but appears to be low lying near the gio. 2. Slightly improved diffuse patchy airspace disease in the right lung. 3. Interval development of small left pleural effusion with associated left lower lobe airspace disease. Khoa Amaral MD Lower Extremity Ultrasound 05/14/17 0000 Signed Impressions: Service Date/Time: Sunday, May 14, 2017 13:41 - CONCLUSION: No DVT of either lower extremity. Anup Yancey MD Head CT 05/13/17 0000 Signed Impressions: Service Date/Time: Saturday, May 13, 2017 14:36 - CONCLUSION: Negative for acute process. Gregory Nava MD FACR CT Angiography 05/13/17 0000 Signed Impressions: Service Date/Time: Saturday, May 13, 2017 14:43 - CONCLUSION: Inflammatory process suspected in right lung without central pulmonary emboli. Moderate coronary artery calcifications. Gregory Nava MD FACR Objective Remarks GENERAL: Patient is lying in bed in NAD SKIN: Warm and dry. HEAD: Normocephalic. EYES: No scleral icterus. No injection or drainage. NECK: Supple, trachea midline. No JVD or lymphadenopathy. CARDIOVASCULAR: Regular rate and rhythm without murmurs, gallops, or rubs. RESPIRATORY: Breath sounds equal bilaterally. No accessory muscle use. GASTROINTESTINAL: Abdomen soft, non-tender, nondistended. MUSCULOSKELETAL: No cyanosis, or edema. Neuro: Awake and alert. A/P Problem List: (1) Sepsis ICD Code: A41.9 - Sepsis, unspecified organism Status: Acute (2) Acute respiratory failure with hypoxia and hypercapnia ICD Code: J96.01 - Acute respiratory failure with hypoxia; J96.02 - Acute respiratory failure with hypercapnia Status: Acute (3) Leukocytosis ICD Code: D72.829 - Elevated white blood cell count, unspecified Status: Acute (4) Hyperglycemia ICD Code: R73.9 - Hyperglycemia, unspecified Status: Acute (5) Chronic combined systolic and diastolic congestive heart failure ICD Code: I50.42 - Chronic combined systolic (congestive) and diastolic ( congestive) heart failure Status: Chronic (6) Diabetes ICD Code: E11.9 - Type 2 diabetes mellitus without complications Status: Chronic (7) Post-polio syndrome ICD Code: G14 - Postpolio syndrome Status: Chronic Assessment and Plan NEUROLOGY AMS- improved awake and alert. CT brain showed no acute intracranial process -Monitor neuro status and avoid sedatives PULMONOLOGY Acute hypercapnic, hypoxic respiratory failure, recurrent- Extubated today Chronic obstructive pulmonary disease -Continue with oxygen keep sat >92% -Duo nebs every 4 hours and every 2 hours as needed -CTA chest 05/13: No central PE, inflammatory process in right lung CARDIOLOGY Chronic combined systolic, diastolic congestive heart failure Elevated troponin -Monitor HR and BP keep MAP>65mmHg. ASA 325mg PO x1 today -For 2D echo to eval LV function. -Spoke to Cards- Dr. Song patient for cardiac cath tomorrow. She had cath done in Oct with PTCA right coronary stent couldn't be placed GASTROENTEROLOGY -Start Mechanical soft diet per speech -On Pepcid NEPHROLOGY -Monitor renal function, I/O's, electrolytes replacement as needed INFECTIOUS DISEASE Leukocytosis.. trending down -Continue vancomycin/Zosyn for empirical coverage. Monitor for signs of infections ( Fever, WBC) WBC is trending down -Follow up on blood cultures f4om 05/13: NGTD strep pneumonia, Legionella testing, influenza screening all negative ENDOCRINOLOGY Diabetes Hyperglycemia -Accu-Cheks with sliding scale insulin -TSH: 1.9 HEMATOLOGY -Monitor CBC, transfuse if needed PROPHYLAXIS -GI protection with Pepcid --DVT prevention with SCD, Lovenox 40mg daily -Doppler US LE negative for DVT 05/14 LINES -Peripheral IVs Level 3 Senait Rico MD May 14, 2017 16:50
[2017-05-14] MEDS ORDERED: SODIUM CHLOR 0.9% 250 ML INJ 250 ML IV ONE (17:15)
[2017-05-14] MEDS: ENOXAPARIN SODIUM 40 MG/0.4 ML SYRINGE SQ SCH (17:45)
[2017-05-15] VITALS (23 sets, daily range): BP systolic 95–130; BP diastolic 49–58; PULSE 75–95; RESP 17–21; TEMP 98.3–99.4; O2SAT 85–100
[2017-05-15] MEDS: RESP: ALBUTEROL 2.5 MG/IPRATROPIUM 0.5 MG NEB (SCH) INH ×6 (03:28→23:29)
[2017-05-15] MEDS: CHLORHEXIDINE GLUCONATE 2 % 1 PACK (2 CLOTHS)(taper/protocol) TOPICAL SCH (04:00)
[2017-05-15] MEDS: CHLORHEXIDINE GLUCONATE 2 % 1 PACK (2 CLOTHS) TOP SCH (04:00)
--- NOTE | 2017-05-15 05:27 | RADRPT ---
EXAM DATE/TIME: 05/15/2017 02:49 [place] COMPARISON: CHEST SINGLE AP, May 14, 2017, 6:06. INDICATIONS : Short of breath. MEDICAL HISTORY : Congestive heart failure. Chronic obstructive pulmonary disease. Myocardial SURGICAL HISTORY : None. ENCOUNTER: Subsequent ACUITY: 2 days PAIN SCORE: 0/10 LOCATION: Bilateral chest FINDINGS: Patient has been extubated and NGT removed in the interval. Continued improved aeration of the right lung. Slight interval enlargement of small left pleural effusion with associated left lower lobe airs pace disease. Cardiomediastinal contours are stable. CONCLUSION: 1. Continued improved aeration of the right lung. 2. Slight interval enlargement of small left pleural effusion and associated left lower lobe airspace disease. Khoa Amaral MD on May 15, 2017 at 5:24 Board Certified Radiologist. This report was verified electronically.
[2017-05-15] MEDS: PIPERACIL-TAZO 4.5 GM PREMIX 100 ML IV SCH ×4 (05:35→23:03)
[2017-05-15] MEDS: INSULIN ASPART SUPPLEMENTAL SCALE SQ SCH ×4 (05:35→18:00)
[2017-05-15 06:35] LABS: PROTHROMBIN TIME - PATIENT 10.5 SEC (9.8-11.6)
[2017-05-15 06:42] LABS: ANION GAP 7 MEQ/L (5-15); AST (GOT) 12 U/L (15-37); BICARBONATE 27.8 MEQ/L (21.0-32.0); BLOOD UREA NITROGEN 10 MG/DL (7-18); CHLORIDE 105 MEQ/L (98-107); GLOMERULAR FILTRATION RATE 108 ML/MIN (>89); MAGNESIUM 2.1 MG/DL (1.5-2.5); POTASSIUM 3.7 MEQ/L (3.5-5.1); SODIUM (NA) 140 MEQ/L (136-145)
[2017-05-15 06:44] LABS: ALT (GPT) 16 U/L (10-53)
[2017-05-15 06:45] LABS: ALKALINE PHOSPHATASE 105 U/L (45-117); TOTAL BILIRUBIN ADULT 0.5 MG/DL (0.2-1.0)
--- NOTE | 2017-05-15 07:53 | PD.CONS ---
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 She states she was performing water aerobics at the pool at the [facility] and became short of breath and had chest pain. She was brought to the ER with respiratory failure and intubated and mechanically ventilated. She cannot say how long the chest pain lasted. It did not radiate. There were no other associated symptoms (Ayo Mitchell) Review of Systems Consitutional: DENIES: Fatigue, Fever, Chills, Weight gain, Weight loss Eyes: DENIES: Amaurosis Fugax, Change in vision HEENT: DENIES: Lightheadedness, Change in hearing Respiratory: DENIES: See HPI, Cough, Snoring, Shortness of breath, Wheezing, Sputum production Cardiovascular: COMPLAINS OF: See HPI Gastrointestinal: DENIES: Nausea, Vomiting, Change in bowel habits, Reflux, Bloody stools, Melena Genitourinary: DENIES: Urinary incontinence, Difficulty voiding Integumentary: DENIES: Rash Neurologic: DENIES: Tingling or numbness, Memory problems, Poor Balance, Stroke symptoms Musculoskeletal: DENIES: Joint pain, Muscle pain, Limited range of motion, Back pain Psychiatric: DENIES: Anxiety, Depression, Sleep disturbances Hematologic: DENIES: Bruising tendencies, Bleeding tendencies Endocrine: DENIES: Weight gain, Weight loss, Thyroid disease (Ayo Mitchell ) Past Family Social History Allergies: Coded Allergies: No Known Allergies (Unverified , 05/13/17) Past Medical History see HPI Gastroesophageal reflux Perform serial disease Hiatal hernia Low back pain Chronic obstructive pulmonary disease History of non-ST elevated myocardial infarction Past Surgical History 3 Cholecystectomy Cardiac catheterization Bilateral lower extremity surgery Tendinoplasty of the left ankle Colonoscopy/EGD Active Ordered Medications Current Medications Medications (Trade) Dose Ordered Sig/Bello Route Start Time Stop Time Status Last Admin (NS Flush) 2 ml UNSCH PRN IV FLUSH 05/13/17 15:15 (NS Flush) 2 ml BID IV FLUSH 05/13/17 21:00 05/14/17 22:19 (Duoneb Neb) 1 ampule Q4HR NEB INH 05/13/17 16:00 05/15/17 07:36 (Duoneb Neb) 1 ampule Q2HR NEB PRN INH 05/13/17 15:15 (Pepcid) 20 mg DAILY TUBE 05/13/17 15:15 05/14/17 08:20 Miscellaneous Information 1 Q361D XX 05/13/17 15:15 (Chlorhexidine 2% Cloth) 3 pack Taper DAILY@04 TOP 05/14/17 04:00 05/10/18 03:59 05/15/17 04:00 (Chlorhexidine 2% Cloth) 3 pack UNSCH PRN TOP 05/13/17 15:15 Pharmacy Profile Note 0 ml @ 0 mls/hr UNSCH OTHER 05/13/17 15:15 Piperacillin Sod/ Tazobactam Sod 100 ml @ 200 mls/hr Q6HR IV 05/13/17 18:00 05/15/17 05:35 (D50w (Vial) Inj) 50 ml UNSCH PRN IV 05/13/17 15:15 (Glucagon Inj) 1 mg UNSCH PRN OTHER 05/13/17 15:15 Potassium Chloride 100 ml @ 50 mls/hr Q2H PRN IV 05/13/17 15:15 Potassium Chloride 100 ml @ 50 mls/hr Q2H PRN IV 05/13/17 15:15 05/14/17 12:40 (K-Lyte Cl Eff) 50 meq UNSCH PRN PO 05/13/17 15:15 Potassium Chloride 100 ml @ 25 mls/hr UNSCH PRN IV 05/13/17 15:15 Potassium Chloride 100 ml @ 50 mls/hr Q2H PRN IV 05/13/17 15:15 Magnesium Sulfate 4 gm/Sodium Chloride 100 ml @ 50 mls/hr UNSCH PRN IV 05/13/17 15:15 (Mag-Ox) 800 mg UNSCH PRN PO 05/13/17 15:15 Magnesium Sulfate 2 gm/Sodium Chloride 100 ml @ 50 mls/hr UNSCH PRN IV 05/13/17 15:15 (K-Phos) 2,000 mg Q4H PRN PO 05/13/17 15:15 Sodium Phosphate 30 mmol/Sodium Chloride 250 ml @ 42 mls/hr UNSCH PRN IV 05/13/17 15:15 (K-Phos) 2,000 mg UNSCH PRN PO/TUBE 05/13/17 15:15 Potassium Phosphate 30 mmol/ Sodium Chloride 260 ml @ 42 mls/hr UNSCH PRN IV 05/13/17 15:15 (Tylenol) 650 mg Q6H PRN PO 05/13/17 15:15 (Ativan Inj) 1 mg Q1H PRN IV 05/13/17 15:15 (Tears Naturale Opth Soln) 1 drop TID EACH EYE 05/13/17 18:00 05/14/17 13:07 (Carissa-Colace) 1 tab BID PO 05/13/17 21:00 05/14/17 22:19 (Milk Of Magnesia Liq) 30 ml Q12H PRN PO 05/13/17 15:15 (Senokot) 17.2 mg Q12H PRN PO 05/13/17 15:15 (Dulcolax Supp) 10 mg DAILY PRN RECTAL 05/13/17 15:15 (Lactulose Liq) 30 ml DAILY PRN PO 05/13/17 15:15 (Peridex 0.12% Liq) 15 ml BID@08,20 MT 05/13/17 20:00 05/14/17 08:21 Miscellaneous Information Patient in critical care unit? Ass... Q361D .XX 05/13/17 16:15 (Chlorhexidine 2% Cloth) 3 pack DAILY@04 TOPICAL 05/14/17 04:00 05/18/17 04:01 05/15/17 04:00 (Chlorhexidine 2% Cloth) 3 pack UNSCH PRN TOPICAL 05/13/17 16:15 05/18/17 16:14 (NovoLOG SUPPLEMENTAL SCALE) 1 Q6HR SQ 05/13/17 18:38 05/15/17 00:00 (Lovenox Inj) 40 mg Q24H SQ 05/13/17 18:00 05/14/17 17:45 Azithromycin 500 mg/Sodium Chloride 250 ml @ 250 mls/hr Q24H IV 05/13/17 17:00 05/14/17 15:08 Vancomycin HCl 1100 mg/Sodium Chloride 261 ml @ 250 mls/hr DAILY@1500 IV 05/14/17 15:00 05/14/17 16:44 Miscellaneous Information SPECIFIC LAB TO BE DRAWN:VANCO TROUGH DATE... ONCE ONCE .XX 05/16/17 14:45 05/16/17 14:46 Social History 100 PYH smoking. Quit in 2010 (Ayo Mitchell) Physical Exam Vital Signs Vital Signs Date Time Temp Pulse Resp B/P (MAP) Pulse Ox O2 Delivery O2 Flow Rate FiO2 05/15/17 07:36 100 Nasal Cannula 2.00 05/15/17 06:00 75 05/15/17 04:00 99.4 84 17 120/56 (77) 99 05/15/17 04:00 84 05/15/17 02:00 86 05/15/17 00:00 98.5 92 18 130/58 (82) 97 05/15/17 00:00 92 05/14/17 22:00 96 05/14/17 20:00 93 05/14/17 20:00 98.9 93 24 98/59 (72) 98 05/14/17 19:30 99 Nasal Cannula 2.00 05/14/17 17:43 88 20 106/51 (69) 99 05/14/17 17:26 90 20 101/39 (59) 98 05/14/17 17:00 88 23 81/42 (55) 96 05/14/17 16:00 98.0 92 22 95/43 (60) 98 05/14/17 16:00 92 05/14/17 15:00 96 23 98/43 (61) 98 05/14/17 14:00 96 29 127/63 (84) 97 05/14/17 14:00 96 05/14/17 13:00 98 20 112/48 (69) 96 05/14/17 12:00 98.0 98 25 121/62 (81) 96 05/14/17 12:00 98 05/14/17 11:30 95 Nasal Cannula 3.00 05/14/17 11:30 95 Nasal Cannula 3 05/14/17 11:08 96 35 05/14/17 11:00 108 20 135/52 (79) 96 05/14/17 10:00 108 05/14/17 10:00 108 31 142/57 (85) 94 05/14/17 09:00 108 19 149/52 (84) 95 05/14/17 08:00 100.2 106 19 152/57 (88) 97 05/14/17 08:00 106 05/14/17 08:00 35 05/14/17 07:50 96 35 Physical Exam GENERAL: Well-nourished, well-developed patient in no apparent distress. NECK: No JVD. No carotid bruit. CARDIOVASCULAR: Regular rate and rhythm. S1/S2 no murmur, rub, or gallop. RESPIRATORY: No accessory muscle use. Clear to auscultation. Breath sounds equal bilaterally. GASTROINTESTINAL: Abdomen soft, non-tender, nondistended. MUSCULOSKELETAL: Extremities without clubbing, cyanosis, or edema. Laboratory Laboratory Tests Test 05/14/17 10:11 05/14/17 11:30 05/15/17 03:46 Blood Gas Puncture Site RT BRACHIAL Blood Gas Patient Temperature 37.0 Blood Gas HCO3 29 Blood Gas Base Excess 4.9 Blood Gas Oxygen Saturation 94 Arterial Blood pH 7.41 Arterial Blood Partial Pressure CO2 47 Arterial Blood Partial Pressure O2 104 Arterial Blood Oxygen Content 16.3 Arterial Blood Carboxyhemoglobin 0.8 Arterial Blood Methemoglobin 2.3 Blood Gas Hemoglobin 12.3 Oxygen Delivery Device VENTILATOR Blood Gas Ventilator Setting CPAP/PS10/5PEEP Blood Gas Inspired Oxygen 35 Troponin I 0.74 Prothrombin Time 10.5 Prothromb Time International Ratio 1.0 Blood Urea Nitrogen 10 Creatinine 0.55 Random Glucose 135 Total Protein 5.9 Albumin 2.4 Calcium Level 8.1 Phosphorus Level 3.3 Magnesium Level 2.1 Alkaline Phosphatase 105 Aspartate Amino Transf (AST/SGOT) 12 Alanine Aminotransferase (ALT/SGPT) 16 Total Bilirubin 0.5 Sodium Level 140 Potassium Level 3.7 Chloride Level 105 Carbon Dioxide Level 27.8 Anion Gap 7 Estimat Glomerular Filtration Rate 108 Date/Time Source Procedure Growth Status 05/13/17 21:12 Blood Peripheral Aerobic Blood Culture - Preliminary NO GROWTH IN 1 DAY Resulted 05/13/17 21:12 Blood Peripheral Anaerobic Blood Culture - Preliminary NO GROWTH IN 1 DAY Resulted 05/13/17 15:15 Nasal Aspirate Influenza Types A,B Antigen (KADI) - Final NEGATIVE FOR FLU A AND B ANTIGEN.... Complete 05/13/17 15:30 Urine Random Urine Legionella Antigen - Final PRESUMPTIVE NEGATIVE FOR LEGIONELLA P... Complete 05/13/17 15:30 Urine Random Urine Streptococcus pneumoniae Antigen (M - Final PRESUMPTIVE NEGATIVE FOR STREPTOCOCCU... Complete (Ayo Mitchell) Result Diagram: 05/14/17 0407 05/15/17 0346 Assessment and Plan Problem List: (1) Chronic combined systolic and diastolic congestive heart failure ICD Codes: I50.42 - Chronic combined systolic (congestive) and diastolic ( congestive) heart failure Status: Chronic (2) NSTEMI (non-ST elevated myocardial infarction) ICD Codes: I21.4 - Non-ST elevation (NSTEMI) myocardial infarction Assessment and Plan NSTEMI - plan is for coronary angiogram today. BB, ERLIN-I, statin and ASA as tolerated CHF - monitor I/O, consider gentle diuresis (Ayo Mitchell) Assessment and Plan chest pain then resp arrest NSTEMI prior coronary angio and PTCA without stent plan for repeat [facility] today NPO (Eliseo Song MD) Ayo Mitchell May 15, 2017 07:52 Eliseo Song MD May 15, 2017 10:48
[2017-05-15] MEDS: CHLORHEXIDINE 0.12% (ORAL KIT) 15 ML CUP MT SCH ×2 (08:00→20:00)
[2017-05-15] MEDS: ARTIFICIAL TEARS OPTH SOLN 15 ML BTL EACH EYE SCH ×3 (09:00→18:00)
--- NOTE | 2017-05-15 09:28 | HHI.CCPN ---
Subjective Remarks/Hospital Course Doretha Azevedom2 AKA Luisa Trivedi with known history of previous similar episode in October 2016 of same presenting symptoms, postpolio syndrome, chronic systolic and diastolic heart failure ejection fraction 35%, depression, gastroesophageal reflux disease, PAD, diabetes, hiatal hernia and low back pain. Patient is intubated and sedated upon seeing the patient in emergency department today. ER physician indicated that the patient was swimming at the pool at the [facility] and became short of breath. Paramedics were called and found her to have profound respiratory distress. Saturations were 50% on room air. They tried a nonrebreather and CPAP in route but she came to tired and had assistance with bag mask upon arrival. Patient was minimally responsive upon arriving at the emergency department. Patient was critically ill with profound respiratory failure and subsequently intubated and sedated in emergency department with improvement of her O2 saturations. I was notified of the patient's real name by the ER nursing staff and was given documentations a previous admissions. Patient had exactly the same presentation earlier this year in October with swimming of the pool and becoming profoundly short of breath, respiratory distress and required intubation upon arrival emergency department. Clinical data that was obtained emergency department does indicate that patient had leukocytosis 27,000, tachycardia 103, chest x-ray showing patchy airspace disease in the right middle to upper lung solorzano. These findings patient is a sepsis criteria. ER physician contacted fitter armament for admission. Patient was given Lasix 80 mg IV 1. She was intubated in the ER with etomidate 20 mg and succinylcholine 100 mg. Patient was given empiric antibiotics include Zosyn. Further studies are being ascertained this time for completeness of evaluation. 05/14 Patient was extubated this afternoon on 3L oxygen with good sats. Afebrile. 05/15: TMax 99.4. Patient's O2 has been weaned to 2 L nasal cannula, and 10 use O2 saturation 97%. Plan for 2-D echo and cardiac catheter this afternoon. Chest x-ray show improvement. Objective Vital Signs Date Time Temp Pulse Resp B/P (MAP) Pulse Ox O2 Delivery O2 Flow Rate FiO2 05/15/17 07:36 100 Nasal Cannula 2.00 05/15/17 06:00 75 05/15/17 04:00 99.4 17 120/56 (77) 05/14/17 11:08 35 Intake and Output 9/6/17 9/6/17 9/7/17 08:00 16:00 00:00 Intake Total 331 ml Output Total 600 ml Balance -269 ml Result Diagram: 05/14/17 0407 05/15/17 0346 Other Results Microbiology Date/Time Source Procedure Growth Status 05/13/17 15:15 Nasal Aspirate Influenza Types A,B Antigen (KADI) - Final NEGATIVE FOR FLU A AND B ANTIGEN.... Complete 05/13/17 15:30 Urine Random Urine Legionella Antigen - Final PRESUMPTIVE NEGATIVE FOR LEGIONELLA P... Complete 05/13/17 15:30 Urine Random Urine Streptococcus pneumoniae Antigen (M - Final PRESUMPTIVE NEGATIVE FOR STREPTOCOCCU... Complete Laboratory Tests Test 05/14/17 10:11 Blood Gas Puncture Site RT BRACHIAL Blood Gas Patient Temperature 37.0 Blood Gas HCO3 29 mmol/L (22-26) Blood Gas Base Excess 4.9 mmol/L (-2-2) Blood Gas Oxygen Saturation 94 % (90-100) Arterial Blood pH 7.41 (7.380-7.420) Arterial Blood Partial Pressure CO2 47 mmHg (38-42) Arterial Blood Partial Pressure O2 104 mmHg (61-120) Arterial Blood Oxygen Content 16.3 Vol % (12.0-20.0) Arterial Blood Carboxyhemoglobin 0.8 % (0-4) Arterial Blood Methemoglobin 2.3 % (0-2) Blood Gas Hemoglobin 12.3 G/DL (12.0-16.0) Oxygen Delivery Device VENTILATOR Blood Gas Ventilator Setting CPAP/PS10/5PEEP Blood Gas Inspired Oxygen 35 % Imaging Last Impressions Chest X-Ray 05/15/17 0600 Signed Impressions: Service Date/Time: Monday, May 15, 2017 02:49 - CONCLUSION: 1. Continued improved aeration of the right lung. 2. Slight interval enlargement of small left pleural effusion and associated left lower lobe airspace disease. Khoa Amaral MD Lower Extremity Ultrasound 05/14/17 0000 Signed Impressions: Service Date/Time: Sunday, May 14, 2017 13:41 - CONCLUSION: No DVT of either lower extremity. Anup Yancey MD Head CT 05/13/17 0000 Signed Impressions: Service Date/Time: Saturday, May 13, 2017 14:36 - CONCLUSION: Negative for acute process. Gregory Nava MD FACR CT Angiography 05/13/17 0000 Signed Impressions: Service Date/Time: Saturday, May 13, 2017 14:43 - CONCLUSION: Inflammatory process suspected in right lung without central pulmonary emboli. Moderate coronary artery calcifications. Gregory Nava MD FACR Last Impressions Chest X-Ray 05/14/17 0600 Signed Impressions: Service Date/Time: Sunday, May 14, 2017 06:06 - CONCLUSION: 1. Endotracheal tube tip is obscured but appears to be low lying near the gio. 2. Slightly improved diffuse patchy airspace disease in the right lung. 3. Interval development of small left pleural effusion with associated left lower lobe airspace disease. Khoa Amaral MD Lower Extremity Ultrasound 05/14/17 0000 Signed Impressions: Service Date/Time: Sunday, May 14, 2017 13:41 - CONCLUSION: No DVT of either lower extremity. Anup Yancey MD Head CT 05/13/17 0000 Signed Impressions: Service Date/Time: Saturday, May 13, 2017 14:36 - CONCLUSION: Negative for acute process. Gregory Nava MD FACR CT Angiography 05/13/17 0000 Signed Impressions: Service Date/Time: Saturday, May 13, 2017 14:43 - CONCLUSION: Inflammatory process suspected in right lung without central pulmonary emboli. Moderate coronary artery calcifications. Gregory Nava MD FACR Objective Remarks GENERAL: Well-developed well-nourished female of stated age. Patient is lying in bed in NAD on nasal cannula SKIN: Warm and dry. Noted bilateral lower extremities, above the ankles slightly reddened area HEAD: Normocephalic. EYES: No scleral icterus. No injection or drainage. NECK: Supple, trachea midline. No JVD or lymphadenopathy. CARDIOVASCULAR: Regular rate and rhythm without murmurs, gallops, or rubs. RESPIRATORY: Breath sounds equal bilaterally. No accessory muscle use. Nasal cannula 2 LPM GASTROINTESTINAL: Abdomen soft, non-tender, nondistended. MUSCULOSKELETAL: No cyanosis, left foot 3+ peripheral edema noted, well-healed scar. Neuro: Awake and alert. Procedures 05/14-bilateral lower extremity ultrasound negative DVT A/P Problem List: (1) Sepsis ICD Code: A41.9 - Sepsis, unspecified organism Status: Acute (2) Acute respiratory failure with hypoxia and hypercapnia ICD Code: J96.01 - Acute respiratory failure with hypoxia; J96.02 - Acute respiratory failure with hypercapnia Status: Acute (3) Leukocytosis ICD Code: D72.829 - Elevated white blood cell count, unspecified Status: Acute (4) Hyperglycemia ICD Code: R73.9 - Hyperglycemia, unspecified Status: Acute (5) Chronic combined systolic and diastolic congestive heart failure ICD Code: I50.42 - Chronic combined systolic (congestive) and diastolic ( congestive) heart failure Status: Chronic (6) Diabetes ICD Code: E11.9 - Type 2 diabetes mellitus without complications Status: Chronic (7) Post-polio syndrome ICD Code: G14 - Postpolio syndrome Status: Chronic Assessment and Plan NEUROLOGY AMS- resolved CT brain showed no acute intracranial process -Monitor neuro status and avoid sedatives PULMONOLOGY Acute hypercapnic, hypoxic respiratory failure, recurrent- Extubated today Chronic obstructive pulmonary disease -Continue with oxygen keep sat >92%, currently on O2 at 2 L nasal cannula -Duo nebs every 4 hours and every 2 hours as needed -CTA chest 05/13: No central PE, inflammatory process in right lung -Chest x-ray noted improvement in aeration, small left pleural effusion resolving CARDIOLOGY Chronic combined systolic, diastolic congestive heart failure Elevated troponin -Monitor HR and BP keep MAP>65mmHg. ASA 325mg PO x1 today -For 2D echo to eval LV function. -Spoke to Cards- Dr. Song patient for cardiac cath this afternoon She had cath done in Oct with PTCA right coronary stent couldn't be placed GASTROENTEROLOGY -Start Mechanical soft diet per speech after cardiac catheterization -On Pepcid NEPHROLOGY -Monitor renal function, I/O's, electrolytes replacement as needed INFECTIOUS DISEASE Leukocytosis.. trending down -Continue vancomycin/Zosyn for empirical coverage. Monitor for signs of infections ( Fever, WBC) WBC is trending down -Follow up on blood cultures 05/13: NGTD strep pneumonia, Legionella testing, influenza screening all negative ENDOCRINOLOGY Diabetes Hyperglycemia -Accu-Cheks with sliding scale insulin -TSH: 1.9 HEMATOLOGY -Monitor CBC, transfuse if needed PROPHYLAXIS -GI protection with Pepcid --DVT prevention with SCD, Lovenox 40mg daily -Doppler US LE negative for DVT 05/14 LINES -Peripheral IVs Level 3 Physician Juliana Marcum MD May 15, 2017 09:28
[2017-05-15] MEDS: FAMOTIDINE 20 MG TAB TUBE SCH (09:41)
[2017-05-15] MEDS: DOCUSATE SODIUM 50 MG/SENNA 8.6 MG TAB PO SCH ×2 (09:41→20:27)
[2017-05-15] MEDS: SODIUM CHLORIDE 0.9% FLUSH 10 ML FLUSH IV FLUSH SCH ×2 (09:41→20:29)
[2017-05-15] MEDS ORDERED: NITROGLYCERIN INJ 5 ML ONE ×2 (14:19→14:54)
[2017-05-15] MEDS ORDERED: HEPARIN-NS/PF INJ 1,000 ML ONE (14:19)
[2017-05-15] MEDS ORDERED: MIDAZOLAM HCL 5 MG/5 ML VIAL ONE (14:29)
[2017-05-15] MEDS ORDERED: IOHEXOL 350 MG/ML 100 ML BTL (for Cath Lab) OTHER ONE (14:31)
[2017-05-15] MEDS ORDERED: HEPARIN SODIUM - IV 10,000 UNITS/10 ML VIAL ONE (14:54)
--- NOTE | 2017-05-15 15:39 | ECHRPT ---
Indication: Shortness of breath CONCLUSIONS The left ventricular systolic function is low normal with an estimated ejection fraction in the rang e of 50- 55%. Wall thickness is measured at the upper limits of normal. Normal left ventricular size. Mild to moderate mitral valve regurgitation. The pulmonary valve is not well visualized. There is a small pericardial effusion present. BP: 120 / 56 HR: 84 Rhythm: Sinus MEASUREMENTS (Male / Female) Normal Values Technical Quality:Good 2D ECHO LV Diastolic Diameter PLAX 4.5 cm 4.2 - 5.9 / 3.9 - 5.3 cm LV Systolic Diameter PLAX 3.5 cm IVS Diastolic Thickness 1.2 cm 0.6 - 1.0 / 0.6 - 0.9 cm LVPW Diastolic Thickness 1.2 cm 0.6 - 1.0 / 0.6 - 0.9 cm LV Relative Wall Thickness 0.5 LVOT Diameter 1.8 cm M-MODE Aortic Root Diameter MM 2.2 cm LA Systolic Diameter MM 3.6 cm LA Ao Ratio MM 1.6 AV Cusp Separation MM 1.7 cm DOPPLER AV Peak Velocity 136.5 cm/s AV Peak Gradient 7.5 mmHg LVOT Peak Velocity 84.4 cm/s LVOT Peak Gradient 2.8 mmHg AV Area Cont Eq pk 1.6 cm MR Peak Velocity 398.0 cm/s MR Peak Gradient 63.4 mmHg Mitral E Point Velocity 118.0 cm/s Mitral A Point Velocity 132.0 cm/s Mitral E to A Ratio 0.9 LV E' Lateral Velocity 7.8 cm/s Mitral E to LV E' Lateral Ratio 15.1 LV E' Septal Velocity 3.9 cm/s Mitral E to LV E' Septal Ratio 30.6 PV Peak Velocity 82.8 cm/s PV Peak Gradient 2.7 mmHg FINDINGS LEFT VENTRICLE The left ventricular systolic function is low normal with an estimated ejection fraction in the rang e of 50- 55%. Wall thickness is measured at the upper limits of normal. Normal left ventricular size. RIGHT VENTRICLE Normal right ventricular size and systolic function. LEFT ATRIUM The left atrial size is normal. RIGHT ATRIUM The right atrial size is normal. ATRIAL SEPTUM Normal atrial septal thickness without atrial level shunting by limited color doppler interrogation. AORTA The aortic root and proximal ascending aorta are normal in size on limited imaging. MITRAL VALVE Mild to moderate mitral valve regurgitation. AORTIC VALVE Trileaflet aortic valve. No aortic valve stenosis or regurgitation. TRICUSPID VALVE Structurally normal tricuspid valve. No tricuspid valve stenosis or regurgitation. PULMONARY VALVE The pulmonary valve is not well visualized. VESSELS The inferior vena cava is normal in size. PERICARDIUM There is a small pericardial effusion present. Jim Kent MD (Electronically Signed) Final Date:15 May 2017 15:38
[2017-05-15] MEDS ORDERED: CLOPIDOGREL 300 MG TAB ONE (16:25)
[2017-05-15] MEDS ORDERED: oxyCODONE/ACETAMINOPHEN 5 MG/325 MG TAB PO PRN (16:30)
[2017-05-15] MEDS ORDERED: MORPHINE SULFATE 4 MG/ML INJ IV PUSH PRN (16:30)
[2017-05-15] MEDS ORDERED: MISC INFORMATION XX ONE (16:30)
[2017-05-15] MEDS ORDERED: LIDOCAINE HCL 1% 50 ML VIAL INFIL PRN (16:30)
[2017-05-15] MEDS ORDERED: oxyCODONE/ACETAMINOPHEN 10 MG/325 MG TAB PO PRN (16:30)
--- NOTE | 2017-05-15 16:44 | CATHPROC ---
[employer] HIS Report Study Information Study Number Admission Scheduled Start Study Start [id number] May 13 2017 1:29PM 05/15/2017 May 15 2017 2:13PM [place] [facility] Cardiac Catheterization Admit Source Facility Department Emergency department [facility] - Dental Instructor Physician and Clinical Staff Initial Eliseo Gonzales Unindentured ApprenticeRebecca Lang,CHILO Loza RN, Teddy Unindentured ApprenticeManny Motley RN Recorder Bob Reza,RT(R) Recorder Kayla Solo RCIS TECH2 Recorder Benedicto Potter,RT(R) Scrub Jase [address] RCIS(BS) Procedures Performed Procedure Location (Site) Vessel Name Coronary Angiograms LCA Left Coronary Coronary Angiograms RCA Right Coronary Coronary Angiograms RCA Dist Right Coronary Drug Eluting Inflatio RCA Mid Right Coronary L Heart Cath Pacemaker Temp Fem Vein (right) Femoral Vein PTCA RCA Dist Right Coronary PTCA RCA Mid Right Coronary Wire insertion Fem Art (right) Femoral Art Equipment Time Health Safety Instructor Description Size Mfg Part Number Used/Scraped COPILOT VALVE, BLEEDBACK [id number] 14:54 BRO [employer]IT[employer] CARE Used CONTROL *[id number] STENT, 2.25 X 12MM XIENCE [id number] 15:55 BRO CRITICAL CARE 2.25 X 12 Used ALPINE *[id number] STENT, 2.25 X 12MM XIENCE [id number] 16:14 BRO [employer]ITICAL CARE 2.25 X 12 Used ALPINE *[id number] WIRE, BALANCE MIDDLEWEIGHT [id number] 15:28 BRO [employer]ITICAL CARE 300CM Used 300CM *[id number] 15:18 MANCERA NAVA PACING CATHETER J CURVE FR 5 Used *[id number] TRANSDUCER, TRUWAVE [id number] 14:35 MANCERA NAVA * Used W/STOCKCOCK *[id number] 15:19 [employer]ON SCIENTIFIC BALLOON, 2.0 12MM EMERGE MR 2.0 12MM Used *[id number] CARDIOVASCULAR CATHETER, CORONARY CLASSIC [id number] 15:23 Used SYSTEMS INC. 1.25MM *[id number] CARDIOVASCULAR WIRE, VIPER ADVANCE [id number] 15:10 Used SYSTEMS INC. CORONARY FLP *[id number] *[id number] *[id number] *[id number] [id number] 14:35 MEDLINE INDUSTRIES PACK, CCL CUSTOM * Used *[id number] [id number] 14:35 MEDLINE PACER PEN, SKIN DUAL W/ RULER * Used *[id number] BALLOON, 1.25 X 6MM SPRINTER [id number] 15:04 MEDTRONIC 6MM Used LEGEND OTW *[id number] BALLOON, 1.25 X 6MM SPRINTER [id number] 15:51 MEDTRONIC 6MM Used LEGEND RX *[id number] [id number] 15:38 Chalkable MEDICAL 30 JOHAN INDEFLATOR Used *[id number] [id number] 15:10 MERIT MEDICAL SHEATH, FR6.5 PRELUDE 11CM FR 6.5 038ACT Used *7865429 [id number]-6F- 14:54 MERIT MEDICAL SHEATH, FR6.5 PRELUDE 11CM FR 6.5 038ACT Used *[id number] [id number]-[id number]:53 MERIT MEDICAL SHEATH, FR6.5 PRELUDE 11CM FR 6.5 038ACT Used *9763937 [id number] 14:35 Chalkable MEDICAL WIRE, 3MMJ .035 180CM 180CM Used *6629329 [id number] 14:35 NAMIC MANIFOLD, 4 PORT * Used *[id number] 14:35 NYCOMED OMNIPAQUE, 350 MG, 150ML 150ML [id number] Used [id number] 14:35 MEDICAL BLANKET,WARM AIR CCL * Used *8251344 ARQ670 14:35 TERUMO MEDICAL SHEATH, FR5 TERUMO (10CM) FR 5 Used *4394930 WIRE, RUNTHROUGH NS FLOPPY [id number] 15:46 TERUMO MEDICAL 180CM Used .014 180CM *[id number] WIRE, RUNTHROUGH NS FLOPPY 25-1013 14:54 TERUMO MEDICAL 300CM Used .014 300CM *[id number] 15:34 VASCULAR SOLUTIONS CATHETER, FR6 GUIDELINER FR 6 5571 *[id number] Used Equipment Model, Serial, Lot Number and Expiration Data Description Model Number Serial Number Lot Number Expiration Date BALLOON, 1.25 X 6MM SPRINTER [id number] 02-06-2020 LEGEND RX BALLOON, 2.0 12MM EMERGE MR [id number] 12-16-2019 SHEATH, FR6.5 PRELUDE 11CM [id number] 01-07-2020 SHEATH, FR6.5 PRELUDE 11CM [id number] 01-07-2020 STENT, 2.25 X 12MM XIENCE [id number] 07-02-2019 ALPINE STENT, 2.25 X 12MM XIENCE [id number] 07-02-2019 ALPINE WIRE, VIPER ADVANCE CORONARY [id number] 10-09-2018 History: Allergies Allergy Reaction No Known Allergies History: Risk Factors Family History of Hypertension Dyslipidemia Previous GA Previous Heart Failure Premature CAD No Yes Yes No Yes Prior Valve Prior PCI Prior CABG Surgery No No No Cerebrovascular Peripheral Artery Chronic Lung On Dialysis Diabetes Diabetes Therapy Disease Disease Disease No No Yes Yes Yes Insulin History: Symptoms/Diagnosis Selection Items Chest pain SOB History: CV Disease Selection Items GA History: Stress Tests Stress or Imaging Studies Performed No History: Other Current Smoker Method Quit Packs a Day Years Used Pack Years No Cigarettes 6 Years Ago 2 50 100 Labs Hgb (g/dl) Hct (%) WBC (l/cumm) Platelets (thousands) 11.60-17.00 35.00-51.00 4.00-11.00 150.00-450.00 12.5 38.9 11.3 325 Glucose (mg/dl) BUN (mg/dl) Creatinine (mg/dl) BUN:Creatinine (1:x) 74.00-106.00 7.00-18.00 0.50-1.30 10.00-20.00 135 10 0.5 20 Na (meq/l) K (meq/l) 136.00-145.00 3.50-5.10 140 3.7 INR (PTT:PT) 0.90-1.10 1 Troponin I (ng/ml) CPK-MB (ng/ML) 0.02-0.05 0.50-3.60 0.74 Not Drawn Medication Medication Total Dose (Bolus/Oral) Medication Total Dosage/Unit 1% XYLOCAINE 20 mL FENTANYL 75 mcg HEPARIN 6000 units PLAVIX 600 mg VERSED 3 mg Medications (Bolus/Oral) Medication Time Given Dosage/Unit Administered By Reason VERSED 05/15/2017 2:36:20 PM 1 mg Rebecca Salazar 1 mg VERSED given in lab by Rebecca Salazar, RN in Left Forearm via Peripheral IV. Ordered by Eliseo Song. FENTANYL 05/15/2017 2:36:50 PM 25 mcg Rebecca Salazar 25 mcg FENTANYL given in lab by Rebecca Salazar RN in Left Forearm via Peripheral IV. Ordered by Eliseo Thayer. 1% XYLOCAINE 05/15/2017 2:38:56 PM 20 mL Eliseo Song 20 mL 1% XYLOCAINE given in lab by Eliseo Song in Right Groin via Subcutaneous. Ordered by Eliseo Song. HEPARIN 05/15/2017 2:56:33 PM 5000 units Eliseo Song 5000 units HEPARIN given in lab by Eliseo Song via Peripheral IV. Ordered by Eliseo Song. VERSED 05/15/2017 3:11:26 PM 1 mg Eliseo Song 1 mg VERSED given in lab by Eliseo Song via Peripheral IV. Ordered by Eliseo Song. FENTANYL 05/15/2017 3:11:27 PM 25 mcg Eliseo Song 25 mcg FENTANYL given in lab by Eliseo Song via Peripheral IV. Ordered by Eliseo Song. VERSED 05/15/2017 3:26:50 PM 1 mg Eliseo Song 1 mg VERSED given in lab by Eliseo Song via Peripheral IV. Ordered by Eliseo Song. FENTANYL 05/15/2017 3:27:27 PM 25 mcg Eliseo Song 25 mcg FENTANYL given in lab by Eliseo Song via Peripheral IV. Ordered by Eliseo Song. HEPARIN 05/15/2017 3:46:57 PM 1000 units Teddy Loza RN 1000 units HEPARIN given in lab by Teddy Loza RN via Peripheral IV. Ordered by Eliseo Song. PLAVIX 05/15/2017 4:27:28 PM 600 mg Eliseo Song 600 mg PLAVIX given in lab by Eilseo Song via Oral. Ordered by Eliseo Song. Medication (Drip) Medication Time Given Dosage/Unit Concentration/Unit Diluent (ml) Solution IV Solutions 05/15/2017 2:23:31 PM 0 mL (IV) 500 NaCl .9 Patient arrived on IV Solutions given by Eliseo Song in Left Antecubital via Peripheral IV. Pump/D rip Flow = 20 ml/hr using NaCl .9. Ordered by Eliseo Song. Reason: As per physicians verbal order. Initial Case Assessment Cardiovascular HR Rhythm NIBP Chest Pain 85 sr 127/64 2 Edema Present Skin color Skin None Normal Warm Dry Circulatory - Right Pulses Dorsalis Pedis Femoral 2 2 Scale (0,1,2,3,4,d) Circulatory - Left Pulses Dorsalis Pedis Femoral 2 2 Scale (0,1,2,3,4,d) Neurological State Oriented to time-place- Alert Moves all extremities person Respiration - General Respiration Rate SpO2 (%) O2 (lpm) (B/min) 18 97 0 Final Case Assessment Cardiovascular HR Rhythm NIBP Chest Pain 86 Sinus 169/77 1 Edema Present Skin color Skin None Normal Warm Dry Circulatory - Right Pulses Dorsalis Pedis Femoral 2 2 Scale (0,1,2,3,4,d) Circulatory - Left Pulses Dorsalis Pedis Femoral 2 2 Scale (0,1,2,3,4,d) Neurological State Oriented to time-place- Alert Moves all extremities person Respiration - General Respiration Rate SpO2 (%) O2 (lpm) (B/min) 18 97 2 Chronological Log Time Study Chronological Log 14:12:55 Patient arrived via Bed. 14:12:56 Patient Name, D.O.B, / Armband Verified By R.N. 14:12:57 Consent signed by the physician and the patient and verified by the Dental Instructor staff. 14:12:59 Pre-op and post- op instructions given; patient acknowledges understanding of instructions. 14:13:34 Verbal Stimulation=2 Physical Stimulation=2 Airway=2 Respiration=2 TOTAL=8. (0=absent, 1=li mited, 2=present) 14:13:43 Presedation assessment performed by Dental Instructor RN. Vitals capture started with the following parameters, Patient=Adult, Interval=5 min, Initial Pr ribflm=034 mmHg, 14:18:54 Deflation Rate=5 mmHg, Cuff placed on Right Arm 14:19:36 WPCY=404/48 mmhg, SpO2=93.0 %, Pain=0, Juan=10, Felix=2 14:19:57 Patient has been NPO for More than 6Hrs. 14:19:59 Skin Breakdown-none present per patient. 14:22:41 A # 20 IV was noted in the Forearm (left). Grade = 0 14:23:20 A # 20 IV was noted in the Forearm (right). Grade = 0 Patient arrived on IV Solutions given by Eliseo Song in Left Antecubital via Peripheral IV. Pump/Drip Flow = 20 14:23:31 ml/hr using NaCl .9. Ordered by Eliseo Song. Reason: As per physicians verbal order. 14:23:53 History and physical on the chart or being dictated. Assessment: Initial Case, HR=85 BPM, Rhythm=sr, RXBB=796/64 mmhg, Chest Pain=2, Edema=None, Col or=Normal, Skin = Warm, Dry Right Pulses: Magdi Ped=2, Femoral=2 14:23:55 Left Pulses: Magdi Ped=2, Femoral=2 Neurological: State=Alert, Ox3, MCKEON Respiration: Resp=18 B/min, SpO2=97 %, O2=0 lpm 14:24:06 Reference ECG taken 14:24:29 HR=88 bpm, MTWN=358/64 mmhg, SpO2=97.0 %, Resp=15 B/min, Pain=0, Juan=10, Felix=2 14:29:03 Bilateral groins prepped with 2% chlorhexidine, and with a 3 min. waiting time. 14:29:32 HR=86 bpm, LXAJ=095/62 mmhg, SpO2=97.0 %, Resp=14 B/min, Pain=0, Juan=10, Felix=2 14:32:37 Pressure channel 1 zeroed. 14:32:41 Reference ECG taken 14:34:02 MD arrived. 14:34:35 HR=86 bpm, YOUT=970/62 mmhg, SpO2=98.0 %, Resp=15 B/min, Pain=0, Juan=10, Felix=2 14:36:20 1 mg VERSED given in lab by Rebecca Salazar RN in Left Forearm via Peripheral IV. Ordered by Eliseo Song. 14:36:50 25 mcg FENTANYL given in lab by Rebecca Salazar RN in Left Forearm via Peripheral IV. Orde red by Eliseo Song. Time Out. Correct patient, correct procedure,correct physician, ,power injector not loaded with contrast with surgical 14:38:24 team present. Time Out Concurred by MD, individual staff and RESTAURANT AND BAR MANAGER in procedure. Not loaded at t his time. 14:38:46 Presedation re-assessment performed by Dental Instructor RN. 14:38:48 Case Start 14:38:49 Verbal Stimulation=2 Physical Stimulation=2 Airway=2 Respiration=2 TOTAL=8. (0=absent, 1=li mited, 2=present) 14:38:56 20 mL 1% XYLOCAINE given in lab by Eliseo Song in Right Groin via Subcutaneous. Ordered by Eliseo Song. 14:39:37 HR=85 bpm, MWAW=634/57 mmhg, SpO2=96.0 %, Resp=22 B/min, Pain=0, Juan=10, Felix=2 14:39:41 Access site was Right Femoral Artery. 14:39:50 A SHEATH, FR5 TERUMO (10CM) FR 5 was advanced into the Fem Art (right) using the Percutaneo us technique. A JL 4.0 INFINITI CATHETER FR 5 was advanced over a wire. OMNIPAQUE, 350 MG, 150ML 150ML was us ed for 14:41:10 injections. Recorded Pressure: Ao, HR=88, Condition=Condition 1 14:43:58 (Aorta) Ao 131/49/81 14:44:10 The LCA was injected and visualized at various angles. OMNIPAQUE, 350 MG, 150ML 150ML used . 14:44:34 HR=86 bpm, OVQI=328/59 mmhg, SpO2=97.0 %, Resp=15 B/min, Pain=0, Juan=10, Felix=2 After removing the current catheter a JR 4.0 INFINITI CATHETER FR 5 was advanced over a WIRE, 3 MMJ .035 180CM 14:47:18 180CM. 14:49:35 HR=91 bpm, WQSQ=124/63 mmhg, SpO2=97.0 %, Resp=15 B/min, Pain=0, Juan=10, Felix=2 Recorded Pressure: LV, HR=87, Condition=Condition 1 14:49:38 (Left Ventricle) LV 143/11/15 Recorded Pressure: LV, Ao, HR=88, Condition=Condition 1 14:49:46 (Left Ventricle) LV 138/10/14, (Aorta) Ao 137/48/82 14:50:35 The RCA was injected and visualized at various angles. OMNIPAQUE, 350 MG, 150ML 150ML used . 14:51:51 Catheter was removed 14:51:56 The Recorder is being relieved by Kayla Solo, ZAHRA TECH2. A SHEATH, FR6.5 PRELUDE 11CM FR 6.5 was exchanged in the Fem Art (right). This was necessary in order to 14:52:59 accomodate a larger catheter. A JR 4.0 GUIDE CATHETER FR 6 was advanced over a wire. OMNIPAQUE, 350 MG, 150ML 150ML was used for 14:54:24 injections. 14:54:38 HR=88 bpm, APAB=923/61 mmhg, SpO2=97.0 %, Resp=16 B/min, Pain=0, Juan=10, Felix=2 14:56:33 5000 units HEPARIN given in lab by Eliseo Song via Peripheral IV. Ordered by Salvador Song. 14:58:01 A WIRE, RUNTHROUGH NS FLOPPY .014 300CM 300CM was inserted via Fem Art (right). 14:59:37 HR=90 bpm, IULB=810/67 mmhg, SpO2=98.0 %, Resp=15 B/min, Pain=0, Juan=10, Felix=2 A BALLOON, 1.25 X 6MM SPRINTER LEGEND OTW 6MM was inserted over WIRE, RUNTHROUGH NS FLOPPY .014 15:04:37 300CM 300CM via the RCA. 15:05:19 HR=87 bpm, FOKZ=842/77 mmhg, SpO2=99.0 %, Resp=16 B/min, Pain=0, Juan=10, Felix=2 15:06:23 Activated Clotting Time Drawn 15:09:10 The RCA Dist was injected and visualized at various angles. OMNIPAQUE, 350 MG, 150ML 150ML used. 15:09:45 HR=84 bpm, KMLM=516/74 mmhg, SpO2=98.0 %, Resp=17 B/min, Pain=0, Juan=10, Felix=2 15:11:26 1 mg VERSED given in lab by Eliseo Song via Peripheral IV. Ordered by Eliseo Song. 15:11:27 25 mcg FENTANYL given in lab by Eliseo Song via Peripheral IV. Ordered by Eliseo Song . 15:14:46 HR=90 bpm, SOMQ=238/75 mmhg, SpO2=95.0 %, Resp=17 B/min, Pain=0, Juan=10, Felix=2 15:15:15 Access site was Right Femoral Vein. 15:15:52 A SHEATH, FR6.5 PRELUDE 11CM FR 6.5 was advanced into the Fem Vein (right) using the Percut aneous technique. A PACING CATHETER J CURVE FR 5 was advanced to the right ventricle. Rate = 60, Output = ~OUTPUT ~, MA = 15:17:06 ~MA~. 15:19:47 HR=89 bpm, CXZL=765/67 mmhg, SpO2=95.0 %, Resp=15 B/min, Pain=0, Juan=10, Felix=2 15:20:17 An CATHETER, CORONARY CLASSIC 1.25MM catheter was inserted into the RCA. 15:20:21 A catheter was advanced over a wire. contrast was used for injections. 15:24:23 Several passes made with the 1.25 classic crown. 15:24:46 HR=83 bpm, KELN=912/73 mmhg, SpO2=98.0 %, Resp=18 B/min, Pain=0, Juan=10, Felix=2 15:26:50 1 mg VERSED given in lab by Eliseo Song via Peripheral IV. Ordered by Eliseo Song. 15:27:27 25 mcg FENTANYL given in lab by Eliseo Song via Peripheral IV. Ordered by Elisoe Song . 15:28:26 Catheter was removed w/o difficulty A BALLOON, 1.25 X 6MM SPRINTER LEGEND OTW 6MM was inserted over WIRE, [employer] ADVANCE CORONARY vi a the 15:29:34 RCA. 15:29:47 HR=87 bpm, RNDK=837/79 mmhg, SpO2=92.0 %, Resp=17 B/min, Pain=0, Juan=10, Felix=2 15:30:25 The previous wire was exchanged for a WIRE, BALANCE MIDDLEWEIGHT 300CM 300CM. 15:33:47 Balloon Removed. A CATHETER, FR6 GUIDELINER FR 6 was advanced over a wire. OMNIPAQUE, 350 MG, 150ML 150ML was us ed for 15:33:55 injections. 15:34:42 HR=87 bpm, GTBS=229/80 mmhg, SpO2=94.0 %, Resp=16 B/min, Pain=0, Juan=10, Felix=2 15:35:10 Activated Clotting Time Drawn A BALLOON, 2.0 12MM EMERGE MR 2.0 12MM was inserted over WIRE, BALANCE MIDDLEWEIGHT 300CM 300CM via 15:36:49 the RCA Mid. A BALLOON, 2.0 12MM EMERGE MR 2.0 12MM over a WIRE, BALANCE MIDDLEWEIGHT 300CM 300CM in the RCA Mid 15:37:26 was inflated using a 30 JOHAN INDEFLATOR at 8 johan for 30 sec. A BALLOON, 2.0 12MM EMERGE MR 2.0 12MM over a WIRE, BALANCE MIDDLEWEIGHT 300CM 300CM in the RCA Mid 15:38:16 was inflated using a 30 JOHAN INDEFLATOR at 8 johan for 30 sec. 15:39:49 HR=86 bpm, RETT=760/68 mmhg, SpO2=94.0 %, Resp=18 B/min, Pain=0, Juan=10, Felix=2 15:40:00 ACT (Normal Range 90-180) = 229 15:40:39 Balloon Removed. 15:41:37 The RCA was injected and visualized at various angles. OMNIPAQUE, 350 MG, 150ML 150ML used . A BALLOON, 1.25 X 6MM SPRINTER LEGEND OTW 6MM was inserted over WIRE, BALANCE MIDDLEWEIGHT 300C M 15:43:15 300CM via the RCA. 15:44:48 HR=75 bpm, PZVV=839/69 mmhg, Resp=18 B/min, Pain=0, Juan=10, Felix=2 15:46:57 1000 units HEPARIN given in lab by Teddy Loza RN via Peripheral IV. Ordered by Rory Song. 15:49:50 HR=87 bpm, LBZK=385/73 mmhg, SpO2=95.0 %, Resp=19 B/min, Pain=0, Juan=10, Felix=2 A BALLOON, 1.25 X 6MM SPRINTER LEGEND RX 6MM was inserted over WIRE, RUNTHROUGH NS FLOPPY .014 180CM 15:51:53 180CM via the RCA Mid. A BALLOON, 1.25 X 6MM SPRINTER LEGEND RX 6MM over a WIRE, RUNTHROUGH NS FLOPPY .014 180CM 180CM in 15:53:51 the RCA Dist was inflated using a 30 JOHAN INDEFLATOR at 14 johan for 30 sec. 15:54:51 HR=67 bpm, AWLJ=896/64 mmhg, SpO2=96.0 %, Resp=5 B/min, Pain=0, Juan=10, Felix=2 A STENT, 2.25 X 12MM XIENCE ALPINE 2.25 X 12 was advanced through a JR 4.0 GUIDE CATHETER FR 6 over a WIRE, 15:55:23 RUNTHROUGH NS FLOPPY .014 180CM 180CM. A STENT, 2.25 X 12MM XIENCE ALPINE 2.25 X 12 was deployed using a 30 JOHAN INDEFLATOR at 12 atmos pheres for 15:55:52 10 seconds in the RCA Mid. A STENT, 2.25 X 12MM XIENCE ALPINE 2.25 X 12 was deployed using a 30 JOHAN INDEFLATOR at 12 atmos pheres for 15:56:19 15 seconds in the RCA Mid. 15:57:05 Delivery device removed 15:59:50 HR=90 bpm, VUGJ=762/77 mmhg, SpO2=93.0 %, Resp=20 B/min, Pain=0, Juan=10, Felix=2 16:04:51 HR=85 bpm, NBLP=807/76 mmhg, SpO2=98.0 %, Resp=19 B/min, Pain=0, Juan=10, Felix=2 A BALLOON, 2.0 12MM EMERGE MR 2.0 12MM was inserted over WIRE, RUNTHROUGH NS FLOPPY .014 180CM 180CM 16:07:24 via the RCA Mid. A BALLOON, 1.25 X 6MM SPRINTER LEGEND RX 6MM over a WIRE, RUNTHROUGH NS FLOPPY .014 180CM 180CM in 16:07:58 the RCA Mid was inflated using a 30 JOHAN INDEFLATOR at 14 johan for 25 sec. A BALLOON, 1.25 X 6MM SPRINTER LEGEND RX 6MM over a WIRE, RUNTHROUGH NS FLOPPY .014 180CM 180CM in 16:09:07 the RCA Mid was inflated using a 30 JOHAN INDEFLATOR at 14 johan for 15 sec. A BALLOON, 1.25 X 6MM SPRINTER LEGEND RX 6MM over a WIRE, RUNTHROUGH NS FLOPPY .014 180CM 180CM in 16:09:29 the RCA Mid was inflated using a 30 JOHAN INDEFLATOR at 14 johan for 15 sec. 16:09:52 HR=67 bpm, JUQK=996/61 mmhg, SpO2=99.0 %, Resp=14 B/min, Pain=0, Juan=10, Felix=2 A BALLOON, 1.25 X 6MM SPRINTER LEGEND RX 6MM over a WIRE, RUNTHROUGH NS FLOPPY .014 180CM 180CM in 16:13:23 the RCA Mid was inflated using a 30 JOHAN INDEFLATOR at 14 johan for 15 sec. 16:14:06 Balloon Removed. 16:14:49 HR=77 bpm, GZAM=277/67 mmhg, SpO2=96.0 %, Resp=19 B/min, Pain=0, Juan=10, Felix=2 A STENT, 2.25 X 12MM XIENCE ALPINE 2.25 X 12 was advanced through a JR 4.0 GUIDE CATHETER FR 6 over a WIRE, 16:15:37 RUNTHROUGH NS FLOPPY .014 180CM 180CM. 16:17:18 Temporary pacer removed. 16:17:38 Stent not deployed. Stent removed and intact. 16:17:57 Wire removed 16:18:06 Catheter was removed 16:18:53 Case End 16:19:38 In the Fem Art (right) the SHEATH, FR6.5 PRELUDE 11CM FR 6.[address] by [address] RCIS(BS). 16:19:48 HR=87 bpm, DXVM=479/77 mmhg, SpO2=95.0 %, Resp=19 B/min, Pain=0, Juan=10, Felix=2 16:20:09 No case complications noted. 16:20:14 Cine recording checked. 16:21:03 Implantable Device card placed in patient's chart. 16:21:08 A Left Heart Cath was performed. Assessment: Final Case, HR=86 BPM, Rhythm=Sinus, AXWD=963/77 mmhg, Chest Pain=1, Edema=None, Color=Normal, Skin = Warm, Dry Right Pulses: Magdi Ped=2, Femoral=2 16:21:18 Left Pulses: Magdi Ped=2, Femoral=2 Neurological: State=Alert, Ox3, MCKEON Respiration: Resp=18 B/min, SpO2=97 %, O2=2 lpm 16:24:51 HR=88 bpm, VVCE=698/72 mmhg, SpO2=97.0 %, Resp=19 B/min, Pain=0, Juan=10, Felix=2 16:27:14 Sterile dressing applied to site 16:27:18 Bedside Report will be given. 16:27:21 Vitals capture stopped. 16:27:28 600 mg PLAVIX given in lab by Eliseo Song via Oral. Ordered by Eliseo Song. 16:32:24 Patient moved to stretcher End Study - Contrast Media Used In Study Contrast Total Opened (mL) Total Used (mL) Total Wasted (mL) Omnipaque 300 155 145 End Study - Maximum Contrast Load Max Contrast Load (mL) 678.2 End Study - Radiation Exposure Fluoro Time (minutes) 36.5 End Study - Patient Disposition Complications Transferred To Interventional Outcome No Telemetry Bed successful
[2017-05-15] MEDS ORDERED: hydrALAZINE HCL 20 MG/ML VIAL IV PUSH ONE (17:00)
[2017-05-15] MEDS ORDERED: hydrALAZINE HCL 20 MG/ML VIAL ONE ×2 (17:00→17:04)
[2017-05-15] MEDS: AZITHROMYCIN INJ 500 MG in SODIUM CHLOR 0.9% 250 ML INJ 250 ML IV SCH (17:07)
[2017-05-15] MEDS: VANCOMYCIN INJ 1,250 MG in SODIUM CHLOR 0.9% 250 ML INJ 250 ML IV SCH (17:09)
[2017-05-15] MEDS: ISOSORBIDE MONONITRATE 60 MG TAB PO SCH (17:26)
[2017-05-15] MEDS: METOPROLOL TARTRATE 25 MG TAB PO SCH (20:28)
[2017-05-15] MEDS ORDERED: ATORVASTATIN 10 MG TAB PO SCH (21:00)
[2017-05-15] MEDS ORDERED: ATORVASTATIN 40 MG TAB PO SCH (21:00)
[2017-05-16] VITALS (12 sets, daily range): BP systolic 99–120; BP diastolic 51–60; PULSE 79–86; RESP 17–31; TEMP 98.6–98.9; O2SAT 85–96
[2017-05-16] MEDS: RESP: ALBUTEROL 2.5 MG/IPRATROPIUM 0.5 MG NEB (SCH) INH ×3 (03:10→09:59)
[2017-05-16] MEDS: CHLORHEXIDINE GLUCONATE 2 % 1 PACK (2 CLOTHS)(taper/protocol) TOPICAL SCH (03:19)
[2017-05-16 05:19] LABS: AUTOMATED NEUTROPHIL # 6.3 TH/MM3 (1.8-7.7); BASOPHIL % 0.5 % (0.0-2.0); EOSINOPHIL # 0.3 TH/MM3 (0-0.4); HEMATOCRIT 31.1 % (35.0-46.0); HEMO FLAGS DIFF FINAL; LYMPHOCYTE # 1.3 TH/MM3 (1.0-4.8); MEAN CELL VOLUME 84.3 FL (80.0-100.0); MEAN CORPUSCULAR HEMOGLOBIN 28.1 PG (27.0-34.0); MEAN CORPUSCULAR HGB CONC 33.3 % (32.0-36.0); MONO % 10.1 % (0.0-8.0); NEUT % 71.4 % (16.0-70.0); PLATELET COUNT 267 TH/MM3 (150-450); RED BLOOD COUNT 3.69 MIL/MM3 (4.00-5.30); RED CELL DISTRIBUTION WIDTH 15.6 % (11.6-17.2); WHITE BLOOD COUNT 8.8 TH/MM3 (4.0-11.0)
[2017-05-16 05:45] LABS: BICARBONATE 28.8 MEQ/L (21.0-32.0); MAGNESIUM 1.9 MG/DL (1.5-2.5); POTASSIUM 3.7 MEQ/L (3.5-5.1)
[2017-05-16 05:48] LABS: HDL CHOLESTEROL 50.1 MG/DL (40.0-60.0)
[2017-05-16] MEDS: INSULIN ASPART SUPPLEMENTAL SCALE SQ SCH ×2 (06:00)
[2017-05-16 06:03] LABS: CKMB 9.3 NG/ML (0.5-3.6)
[2017-05-16] MEDS: PIPERACIL-TAZO 4.5 GM PREMIX 100 ML IV SCH (06:21)
[2017-05-16] MEDS: ISOSORBIDE MONONITRATE 60 MG TAB PO SCH (06:22)
--- NOTE | 2017-05-16 07:53 | PD.CARD.PN ---
Subjective Subjective Remarks denies chest pain Objective Vital Signs / I&O Vital Signs Date Time Temp Pulse Resp B/P (MAP) Pulse Ox O2 Delivery O2 Flow Rate FiO2 05/16/17 06:00 82 05/16/17 04:00 98.9 81 17 120/58 (78) 96 05/16/17 04:00 81 05/16/17 02:00 79 05/16/17 00:00 84 05/16/17 00:00 98.6 84 26 100/55 (70) 94 05/15/17 22:00 91 05/15/17 20:52 95 Nasal Cannula 2.00 05/15/17 20:00 98.8 92 17 110/53 (72) 95 05/15/17 20:00 92 05/15/17 18:27 93 19 95/50 (65) 92 05/15/17 18:24 93 20 105/52 (69) 92 05/15/17 18:21 94 21 99/49 (66) 92 05/15/17 18:18 95 20 106/53 (70) 92 05/15/17 18:15 93 20 105/52 (69) 92 05/15/17 18:12 93 19 102/51 (68) 92 05/15/17 18:09 93 20 104/53 (70) 92 05/15/17 18:06 93 21 111/53 (72) 85 05/15/17 18:03 93 21 107/54 (71) 05/15/17 18:00 92 21 107/53 (71) 05/15/17 18:00 92 05/15/17 18:00 92 05/15/17 17:50 90 21 114/52 (72) 05/15/17 17:45 90 21 115/58 (77) 121/53 (75) 05/15/17 17:45 90 21 115/58 (77) 121/53 (75) 05/15/17 17:45 90 05/15/17 16:00 98.3 05/15/17 12:00 99.0 05/15/17 08:00 98.4 I/O 05/15/17 05/15/17 05/15/17 05/16/17 05/16/17 05/16/17 07:00 15:00 23:00 07:00 15:00 23:00 Intake Total 331 ml 604 ml 745 ml Output Total 600 ml 800 ml 600 ml Balance -269 ml -196 ml 145 ml Intake Oral 300 ml IV Total 331 ml 604 ml 445 ml Output Urine Total 600 ml 800 ml 600 ml Stool Total 0 ml # Bowel Movements 1 Physical Exam GENERAL: Well-nourished, well-developed patient in no apparent distress. NECK: No JVD. No carotid bruit. CARDIOVASCULAR: Regular rate and rhythm. S1/S2 no murmur, rub, or gallop. RESPIRATORY: No accessory muscle use. Clear to auscultation. Breath sounds equal bilaterally. GASTROINTESTINAL: Abdomen soft, non-tender, nondistended. MUSCULOSKELETAL: Extremities without clubbing, cyanosis, or edema. Laboratory Laboratory Tests Test 05/16/17 04:01 White Blood Count 8.8 TH/MM3 Red Blood Count 3.69 MIL/MM3 Hemoglobin 10.3 GM/DL Hematocrit 31.1 % Mean Corpuscular Volume 84.3 FL Mean Corpuscular Hemoglobin 28.1 PG Mean Corpuscular Hemoglobin Concent 33.3 % Red Cell Distribution Width 15.6 % Platelet Count 267 TH/MM3 Mean Platelet Volume 8.8 FL Neutrophils (%) (Auto) 71.4 % Lymphocytes (%) (Auto) 15.0 % Monocytes (%) (Auto) 10.1 % Eosinophils (%) (Auto) 3.0 % Basophils (%) (Auto) 0.5 % Neutrophils # (Auto) 6.3 TH/MM3 Lymphocytes # (Auto) 1.3 TH/MM3 Monocytes # (Auto) 0.9 TH/MM3 Eosinophils # (Auto) 0.3 TH/MM3 Basophils # (Auto) 0.0 TH/MM3 CBC Comment DIFF FINAL Differential Comment Blood Urea Nitrogen 11 MG/DL Creatinine 0.74 MG/DL Random Glucose 156 MG/DL Calcium Level 7.8 MG/DL Phosphorus Level 3.4 MG/DL Magnesium Level 1.9 MG/DL Sodium Level 139 MEQ/L Potassium Level 3.7 MEQ/L Chloride Level 103 MEQ/L Carbon Dioxide Level 28.8 MEQ/L Anion Gap 7 MEQ/L Estimat Glomerular Filtration Rate 77 ML/MIN Total Creatine Kinase 228 U/L Creatine Kinase MB 9.3 NG/ML Creatine Kinase MB % 4.1 % Triglycerides Level 119 MG/DL Cholesterol Level 147 MG/DL LDL Cholesterol 73 MG/DL HDL Cholesterol 50.1 MG/DL Cholesterol/HDL Ratio 2.93 RATIO Assessment and Plan Problem List: (1) Chronic combined systolic and diastolic congestive heart failure ICD Codes: I50.42 - Chronic combined systolic (congestive) and diastolic ( congestive) heart failure Status: Chronic (2) NSTEMI (non-ST elevated myocardial infarction) ICD Codes: I21.4 - Non-ST elevation (NSTEMI) myocardial infarction Assessment and Plan NSTEMI - PTCA RCA, continue medical therapy and discharge home CHF - monitor I/O, consider gentle diuresis Ayo Mitchell May 16, 2017 07:53
--- NOTE | 2017-05-16 07:59 | HHI.CCPN ---
Subjective Remarks/Hospital Course Doretha Pedro AKA Luisa Trivedi with known history of previous similar episode in October 2016 of same presenting symptoms, postpolio syndrome, chronic systolic and diastolic heart failure ejection fraction 35%, depression, gastroesophageal reflux disease, PAD, diabetes, hiatal hernia and low back pain. Patient is intubated and sedated upon seeing the patient in emergency department today. ER physician indicated that the patient was swimming at the pool at the [facility] and became short of breath. Paramedics were called and found her to have profound respiratory distress. Saturations were 50% on room air. They tried a nonrebreather and CPAP in route but she came to tired and had assistance with bag mask upon arrival. Patient was minimally responsive upon arriving at the emergency department. Patient was critically ill with profound respiratory failure and subsequently intubated and sedated in emergency department with improvement of her O2 saturations. I was notified of the patient's real name by the ER nursing staff and was given documentations a previous admissions. Patient had exactly the same presentation earlier this year in October with swimming of the pool and becoming profoundly short of breath, respiratory distress and required intubation upon arrival emergency department. Clinical data that was obtained emergency department does indicate that patient had leukocytosis 27,000, tachycardia 103, chest x-ray showing patchy airspace disease in the right middle to upper lung solorzano. These findings patient is a sepsis criteria. ER physician contacted racehorse trainer for admission. Patient was given Lasix 80 mg IV 1. She was intubated in the ER with etomidate 20 mg and succinylcholine 100 mg. Patient was given empiric antibiotics include Zosyn. Further studies are being ascertained this time for completeness of evaluation. 05/14 Patient was extubated this afternoon on 3L oxygen with good sats. Afebrile. 05/15: TMax 99.4. Patient's O2 has been weaned to 2 L nasal cannula, and 10 use O2 saturation 97%. Plan for 2-D echo and cardiac catheter this afternoon. Chest x-ray show improvement. 05/16: Upon return from the catheter lab the patient had an episode of chest pain and hypertension with blood pressure 200/96 patient received 20 mg hydralazine 1 dose, and 1 mg of morphine with resolution. Right femoral groin sheaths removed. No acute events throughout the night. The patient denies chest pain. Objective Vital Signs Date Time Temp Pulse Resp B/P (MAP) Pulse Ox O2 Delivery O2 Flow Rate FiO2 05/16/17 06:00 82 05/16/17 04:00 98.9 17 120/58 (78) 96 05/15/17 20:52 Nasal Cannula 2.00 05/14/17 11:08 35 Intake and Output 05/16/17 05/16/17 05/17/17 08:00 16:00 00:00 Intake Total 745 ml Output Total 600 ml Balance 145 ml Result Diagram: 05/16/17 0401 05/16/17 0401 Other Results Microbiology Date/Time Source Procedure Growth Status 05/13/17 15:15 Nasal Aspirate Influenza Types A,B Antigen (KADI) - Final NEGATIVE FOR FLU A AND B ANTIGEN.... Complete 05/13/17 15:30 Urine Random Urine Legionella Antigen - Final PRESUMPTIVE NEGATIVE FOR LEGIONELLA P... Complete 05/13/17 15:30 Urine Random Urine Streptococcus pneumoniae Antigen (M - Final PRESUMPTIVE NEGATIVE FOR STREPTOCOCCU... Complete Imaging Last Impressions Chest X-Ray 05/15/17 06 Signed Impressions: Service Date/Time: Monday, May 15, 2017 02:49 - CONCLUSION: 1. Continued improved aeration of the right lung. 2. Slight interval enlargement of small left pleural effusion and associated left lower lobe airspace disease. Khoa Amaral MD Lower Extremity Ultrasound 05/14/17 0000 Signed Impressions: Service Date/Time: Sunday, May 14, 2017 13:41 - CONCLUSION: No DVT of either lower extremity. Anup Yancey MD Head CT 05/13/17 0000 Signed Impressions: Service Date/Time: Saturday, May 13, 2017 14:36 - CONCLUSION: Negative for acute process. Gregory Nava MD FACR CT Angiography 05/13/17 0000 Signed Impressions: Service Date/Time: Saturday, May 13, 2017 14:43 - CONCLUSION: Inflammatory process suspected in right lung without central pulmonary emboli. Moderate coronary artery calcifications. Gregory Nava MD FACR Last Impressions Chest X-Ray 05/14/17 0600 Signed Impressions: Service Date/Time: Sunday, May 14, 2017 06:06 - CONCLUSION: 1. Endotracheal tube tip is obscured but appears to be low lying near the gio. 2. Slightly improved diffuse patchy airspace disease in the right lung. 3. Interval development of small left pleural effusion with associated left lower lobe airspace disease. Khoa Amaral MD Lower Extremity Ultrasound 05/14/17 Signed Impressions: Service Date/Time: Sunday, May 14, 2017 13:41 - CONCLUSION: No DVT of either lower extremity. Anup Yancey MD Head CT 05/13/17 Signed Impressions: Service Date/Time: Saturday, May 13, 2017 14:36 - CONCLUSION: Negative for acute process. Gregory Nava MD FACR CT Angiography 05/13/17 Signed Impressions: Service Date/Time: Saturday, May 13, 2017 14:43 - CONCLUSION: Inflammatory process suspected in right lung without central pulmonary emboli. Moderate coronary artery calcifications. Gregory Nava MD FACR Objective Remarks GENERAL: Well-developed well-nourished female of stated age. Patient is lying in bed in NAD on nasal cannula, alert and responsive SKIN: Warm and dry. HEAD: Normocephalic. EYES: No scleral icterus. No injection or drainage. NECK: Supple, trachea midline. No JVD or lymphadenopathy. CARDIOVASCULAR: Regular rate and rhythm without murmurs, gallops, or rubs. Telemetry sinus rhythm RESPIRATORY: Breath sounds equal bilaterally. No accessory muscle use. Nasal cannula 2 LPM GASTROINTESTINAL: Abdomen soft, non-tender, nondistended. MUSCULOSKELETAL: No cyanosis, left foot 3+ peripheral edema noted, well-healed scar. Neuro: Awake and alert. Motor strength bilateral lower extremities 4/5 Procedures 05/14-bilateral lower extremity ultrasound negative DVT 05/15-cardiac catheterization Urinary Catheter: Yes Assessment to: Remove A/P Problem List: (1) Sepsis ICD Code: A41.9 - Sepsis, unspecified organism Status: Acute (2) Acute respiratory failure with hypoxia and hypercapnia ICD Code: J96.01 - Acute respiratory failure with hypoxia; J96.02 - Acute respiratory failure with hypercapnia Status: Acute (3) Leukocytosis ICD Code: D72.829 - Elevated white blood cell count, unspecified Status: Acute (4) Hyperglycemia ICD Code: R73.9 - Hyperglycemia, unspecified Status: Acute (5) Chronic combined systolic and diastolic congestive heart failure ICD Code: I50.42 - Chronic combined systolic (congestive) and diastolic ( congestive) heart failure Status: Chronic (6) Diabetes ICD Code: E11.9 - Type 2 diabetes mellitus without complications Status: Chronic (7) Post-polio syndrome ICD Code: G14 - Postpolio syndrome Status: Chronic Assessment and Plan NEUROLOGY AMS- resolved CT brain showed no acute intracranial process -Monitor neuro status and avoid sedatives PULMONOLOGY Acute hypercapnic, hypoxic respiratory failure, recurrent- Extubated today Chronic obstructive pulmonary disease -Continue with oxygen keep sat >92%, currently on O2 at 2 L nasal cannula -Duo nebs every 4 hours and every 2 hours as needed -CTA chest 05/13: No central PE, inflammatory process in right lung -Chest x-ray noted improvement in aeration, small left pleural effusion resolving CARDIOLOGY Chronic combined systolic, diastolic congestive heart failure Elevated troponin -Monitor HR and BP keep MAP>65mmHg. ASA 325mg PO x1 today -05/15 2D echo-EF 50- 55 percent, mild mild to moderate MR, small pericardial effusion - Dr. Song S/P cardiac cath 05/15-await recommendations She had cath done in Oct with PTCA right coronary stent couldn't be placed GASTROENTEROLOGY - Mechanical soft diet recommendations per speech - Bowel regimen -On Pepcid NEPHROLOGY -Monitor renal function, I/O's, electrolytes replacement as needed -Discontinue Mendoza catheter INFECTIOUS DISEASE Leukocytosis.. trending down -Continue vancomycin/Zosyn for empirical coverage. Monitor for signs of infections ( Fever, WBC) WBC is trending down -Follow up on blood cultures 05/13: NGTD strep pneumonia, Legionella testing, influenza screening all negative - Sputum culture- Pseudomonas-patient currently on Zosyn ENDOCRINOLOGY Diabetes Hyperglycemia -Accu-Cheks with sliding scale insulin -TSH: 1.9 HEMATOLOGY -Monitor CBC, transfuse if needed MSK: - PT evaluation and treat patient usually ambulates with walker patient has postpolio syndrome PROPHYLAXIS -GI protection with Pepcid --DVT prevention with SCD, Lovenox 40mg daily -Doppler US LE negative for DVT 05/14 LINES -Peripheral IVs Dispo: Discussed with [employer]FFECTS ARTIST and patient. We'll await recommendations from Dr. Song patient is status post cardiac catheterization on 05/15. Plans for discharge. I discussed plan with Dr. Irving, the patient's PCP, updated him on her status, and plan for discharge home per Dr. Song. The patient is to contact Dr. Irving office to ensure efficient followup appt on Saturday and confirm continuing home medications, immediately upon discharge.All questions answered. Level 2 Physician Juliana Marcum MD May 16, 2017 07:59
[2017-05-16] MEDS: CHLORHEXIDINE 0.12% (ORAL KIT) 15 ML CUP MT SCH (08:00)
[2017-05-16] MEDS: FAMOTIDINE 20 MG TAB TUBE SCH (08:24)
[2017-05-16] MEDS: METOPROLOL TARTRATE 25 MG TAB PO SCH (08:24)
[2017-05-16] MEDS: SODIUM CHLORIDE 0.9% FLUSH 10 ML FLUSH IV FLUSH SCH (08:25)
[2017-05-16] MEDS: VANCOMYCIN INJ 1,250 MG in SODIUM CHLOR 0.9% 250 ML INJ 250 ML IV SCH (08:25)
--- NOTE | 2017-05-16 08:26 | HHI.DS ---
Discharge Summary Admission Date May 13, 2017 at 13:29 Admitting Diagnosis acute hypoxemic resp failure (1) Acute respiratory failure with hypoxia and hypercapnia ICD Code: J96.01 - Acute respiratory failure with hypoxia; J96.02 - Acute respiratory failure with hypercapnia Diagnosis: Principal Status: Acute (2) Sepsis ICD Code: A41.9 - Sepsis, unspecified organism Diagnosis: Principal Status: Acute (3) Leukocytosis ICD Code: D72.829 - Elevated white blood cell count, unspecified Diagnosis: Principal Status: Acute (4) Hyperglycemia ICD Code: R73.9 - Hyperglycemia, unspecified Diagnosis: Principal Status: Acute (5) Chronic combined systolic and diastolic congestive heart failure ICD Code: I50.42 - Chronic combined systolic (congestive) and diastolic ( congestive) heart failure Diagnosis: Secondary Status: Chronic (6) Diabetes ICD Code: E11.9 - Type 2 diabetes mellitus without complications Diagnosis: Secondary Status: Chronic (7) Post-polio syndrome ICD Code: G14 - Postpolio syndrome Diagnosis: Secondary Status: Chronic Procedures 05/14-bilateral lower extremity ultrasound negative DVT 05/15-cardiac catheterization Brief History Doretha Azevedom2 AKA Luisa Trivedi with known history of previous similar episode in October 2016 of same presenting symptoms, postpolio syndrome, chronic systolic and diastolic heart failure ejection fraction 35%, depression, gastroesophageal reflux disease, PAD, diabetes, hiatal hernia and low back pain. Patient is intubated and sedated upon seeing the patient in emergency department today. ER physician indicated that the patient was swimming at the pool at the [facility] and became short of breath. Paramedics were called and found her to have profound respiratory distress. Saturations were 50% on room air. They tried a nonrebreather and CPAP in route but she came to tired and had assistance with bag mask upon arrival. Patient was minimally responsive upon arriving at the emergency department. Patient was critically ill with profound respiratory failure and subsequently intubated and sedated in emergency department with improvement of her O2 saturations. I was notified of the patient's real name by the ER nursing staff and was given documentations a previous admissions. Patient had exactly the same presentation earlier this year in October with swimming of the pool and becoming profoundly short of breath, respiratory distress and required intubation upon arrival emergency department. Clinical data that was obtained emergency department does indicate that patient had leukocytosis 27,000, tachycardia 103, chest x-ray showing patchy airspace disease in the right middle to upper lung solorzano. These findings patient is a sepsis criteria. ER physician contacted aluminum sheet cutter for admission. Patient was given Lasix 80 mg IV 1. She was intubated in the ER with etomidate 20 mg and succinylcholine 100 mg. Patient was given empiric antibiotics include Zosyn. Further studies are being ascertained this time for completeness of evaluation. CBC/BMP: 05/16/17 0401 05/16/17 0401 Significant Findings Laboratory Tests Test 05/13/17 11:10 05/13/17 11:40 05/13/17 12:10 05/13/17 15:15 White Blood Count 27.1 TH/MM3 (4.0-11.0) Neutrophils # (Auto) 18.8 TH/MM3 (1.8-7.7) Lymphocytes # (Auto) 6.9 TH/MM3 (1.0-4.8) Monocytes # (Auto) 1.1 TH/MM3 (0-0.9) Monocytes % 9 % (0-8) Neutrophils # (Manual) 17.3 TH/MM3 (1.8-7.7) Platelet Estimate HIGH (NORMAL) Random Glucose 306 MG/DL (74-106) Albumin 2.9 GM/DL (3.4-5.0) Alkaline Phosphatase 138 U/L (45-117) Estimat Glomerular Filtration Rate 48 ML/MIN (>89) Troponin I LESS THAN 0.02 NG/ML Urine Protein 30 mg/dL (NEG-TRACE) Urine Glucose (UA) 100 mg/dL (NEG) Blood Gas Base Excess -4.4 mmol/L (-2-2) Arterial Blood pH 7.23 (7.380-7.420) Arterial Blood Partial Pressure CO2 55 mmHG (38-42) Arterial Blood Partial Pressure O2 413 mmHG (61-120) Arterial Blood Methemoglobin 2.3 % (0-2) Test 05/13/17 16:00 05/13/17 16:56 05/13/17 23:53 05/14/17 04:07 Blood Gas HCO3 27 mmol/L (22-26) Blood Gas Base Excess 3.2 mmol/L (-2-2) Arterial Blood pH 7.45 (7.380-7.420) Arterial Blood Methemoglobin 2.2 % (0-2) Creatine Kinase MB 7.2 NG/ML (0.5-3.6) 6.5 NG/ML (0.5-3.6) Troponin I 0.41 NG/ML (0.02-0.05) 0.83 NG/ML (0.02-0.05) B-Type Natriuretic Peptide 105 PG/ML (0-100) White Blood Count 11.3 TH/MM3 (4.0-11.0) Mean Corpuscular Hemoglobin 26.7 PG (27.0-34.0) Neutrophils (%) (Auto) 79.3 % (16.0-70.0) Monocytes (%) (Auto) 8.5 % (0.0-8.0) Neutrophils # (Auto) 8.9 TH/MM3 (1.8-7.7) Monocytes # (Auto) 1.0 TH/MM3 (0-0.9) Random Glucose 181 MG/DL (74-106) Albumin 2.8 GM/DL (3.4-5.0) Calcium Level 8.3 MG/DL (8.5-10.1) Alkaline Phosphatase 128 U/L (45-117) Potassium Level 3.2 MEQ/L (3.5-5.1) Estimat Glomerular Filtration Rate 64 ML/MIN (>89) Test 05/14/17 10:11 05/14/17 11:30 05/15/17 03:46 05/16/17 04:01 Blood Gas HCO3 29 mmol/L (22-26) Blood Gas Base Excess 4.9 mmol/L (-2-2) Arterial Blood Partial Pressure CO2 47 mmHg (38-42) Arterial Blood Methemoglobin 2.3 % (0-2) Troponin I 0.74 NG/ML (0.02-0.05) Random Glucose 135 MG/DL (74-106) 156 MG/DL (74-106) Total Protein 5.9 GM/DL (6.4-8.2) Albumin 2.4 GM/DL (3.4-5.0) Calcium Level 8.1 MG/DL (8.5-10.1) 7.8 MG/DL (8.5-10.1) Aspartate Amino Transf (AST/SGOT) 12 U/L (15-37) Red Blood Count 3.69 MIL/MM3 (4.00-5.30) Hemoglobin 10.3 GM/DL (11.6-15.3) Hematocrit 31.1 % (35.0-46.0) Neutrophils (%) (Auto) 71.4 % (16.0-70.0) Monocytes (%) (Auto) 10.1 % (0.0-8.0) Estimat Glomerular Filtration Rate 77 ML/MIN (>89) Total Creatine Kinase 228 U/L (26-192) Creatine Kinase MB 9.3 NG/ML (0.5-3.6) Creatine Kinase MB % 4.1 % (0.0-4.0) Hospital Course Doretha Azevedom2 AKA Farooq, Luisa with known history of previous similar episode in October 2016 of same presenting symptoms, postpolio syndrome, chronic systolic and diastolic heart failure ejection fraction 35%, depression, gastroesophageal reflux disease, PAD, diabetes, hiatal hernia and low back pain. Patient is intubated and sedated upon seeing the patient in emergency department today. ER physician indicated that the patient was swimming at the pool at the [facility] and became short of breath. Paramedics were called and found her to have profound respiratory distress. Saturations were 50% on room air. They tried a nonrebreather and CPAP in route but she came to tired and had assistance with bag mask upon arrival. Patient was minimally responsive upon arriving at the emergency department. Patient was critically ill with profound respiratory failure and subsequently intubated and sedated in emergency department with improvement of her O2 saturations. I was notified of the patient's real name by the ER nursing staff and was given documentations a previous admissions. Patient had exactly the same presentation earlier this year in October with swimming of the pool and becoming profoundly short of breath, respiratory distress and required intubation upon arrival emergency department. Clinical data that was obtained emergency department does indicate that patient had leukocytosis 27,000, tachycardia 103, chest x-ray showing patchy airspace disease in the right middle to upper lung solorzano. These findings patient is a sepsis criteria. ER physician contacted aluminum sheet cutter for admission. Patient was given Lasix 80 mg IV 1. She was intubated in the ER with etomidate 20 mg and succinylcholine 100 mg. Patient was given empiric antibiotics include Zosyn. Further studies are being ascertained this time for completeness of evaluation. 05/14 Patient was extubated this afternoon on 3L oxygen with good sats. Afebrile. 05/15: TMax 99.4. Patient's O2 has been weaned to 2 L nasal cannula, and 10 use O2 saturation 97%. Plan for 2-D echo and cardiac catheter this afternoon. Chest x-ray show improvement. 05/16: Upon return from the catheter lab the patient had an episode of chest pain and hypertension with blood pressure 200/96 patient received 20 mg hydralazine 1 dose, and 1 mg of morphine with resolution. Right femoral groin sheaths removed. No acute events throughout the night. The patient denies chest pain. Plan discharge home today per cardiology recommendations. Pt Condition on Discharge: Stable Discharge Disposition: Discharge Home Discharge Instructions DIET: Follow Instructions for: Soft Diet Speech Therapy-Diet Recommends: Mechanical Soft Activities you can perform: Regular-No Restrictions Other Activity Instructions: Postpolio- patient ambulates with a walker Additional Information Patient to follow-up and schedule appointment immediately upon discharge today with primary care physician Dr. Irving, to ensure supply of medications and efficient followup. The patient has been instructed. Patient to continue Plavix 75md/day, ASA 81mg/ day and Metoprolol 25mg BID. The patient has home meds ( Plavix and ASA) , a written prescription for Metoprolol which has been increased to 25mg BID has been provided to patient. Juliana Mullen MD May 16, 2017 08:26
[2017-05-16] MEDS ORDERED: ASPIRIN 81 MG CHEW TAB PO SCH (09:00)
[2017-05-16] MEDS ORDERED: CLOPIDOGREL 75 MG TAB PO SCH (09:00)
[2017-05-16] MEDS: ARTIFICIAL TEARS OPTH SOLN 15 ML BTL EACH EYE SCH (09:00)
[2017-05-16] MEDS: DOCUSATE SODIUM 50 MG/SENNA 8.6 MG TAB PO SCH (09:00)
[2017-05-16] MEDS ORDERED: PLAV75TA29 PO (10:04)
[2017-05-16] MEDS ORDERED: METO25TA3 PO (10:04)
[2017-05-16] MEDS ORDERED: ASPI81CH25 PO (10:04)
--- NOTE | 2017-05-16 10:59 | MA ---
cc: CAMERON MAZA DATE: 05/15/2017 PROCEDURES PERFORMED 1. Fluoroscopy with interpretation. 2. Coronary angiography. 3. Left heart catheterization. 4. Orbital rotational atherectomy of the right coronary. 5. Percutaneous intervention with drug-eluting stent to the right coronary artery. METHOD Risks, benefits and alternatives were discussed with the patient. The patient understood and consented. PROCEDURE DETAILS The patient brought into the catheterization lab and placed on the catheterization table. Right groin was prepped and draped in sterile fashion. Right groin was anesthetized with 2% lidocaine. The right common femoral was cannulated and a 5-Maltese 11 cm sheath was placed without difficulty. Intraventricular hemodynamics 138/10 mmHg. CORONARY ANGIOGRAPHY 1. Left main coronary has mild luminal irregularities. 2. Left anterior descending coronary has minor luminal irregularities. 3. Left circumflex has 30% stenosis in the obtuse marginal branch. 4. Right coronary proximally has 30% stenosis. In the proximal to mid segment there is a tortuous short 90% stenosis present. Posterior descending posterolateral branch have minor irregularities. PERCUTANEOUS INTERVENTION Given the patient's suggestive symptoms with recurrent chest pain with exertion followed by respiratory/cardiac arrest and required intubation, we elected to proceed with attempted intervention. Previously the patient had failed attempt to place a stent but balloon angioplasty was performed with symptomatic relief. Right coronary artery was selectively engaged with a 6-Maltese JR-4 guide catheter. A 0.014 inch 300 cm Terumo run-through wire was navigated down the distal posterior lateral branch. A 1.25 x 6 mm over the wire balloon was then attempted to be passed down distally. We did have a lot of difficulty passing the tortuous stenotic segment. We were able to navigate a viper wire down through to the distal posterolateral branch to the over the wire balloon. The over the wire balloon was removed. A 1.25 mm CSI atherectomy catheter was then prepped. Orbital rotational atherectomy was performed on three sequential passes to the proximal segment of the right coronary artery. We were unable to pass the bur beyond the tortuosity of the mid segmental lesion. The over the wire balloon was then advanced down just to the lesion, the wire was pulled. A BMW middle weight wire was then navigated down the distal posterolateral lateral branch for additional support. We were unable to pass a 2.0 x 10 mm balloon. We advanced the guide liner deep into the right coronary artery proximal segment, still despite the additional support we were still unable to pass the balloon. We did a few dilations in the proximal leading into the tortuous mid segment. We attempted to try to bear the guide liner into the tortuous curve and extend the stent just to the proximal segment to try to straighten it out. We deployed a 2.25 x 12-mm Ma drug-eluting stent, it was just above the lesion. It did straighten the vessel out enough that we could get a 2.0 x 10 mm balloon across the stenosis and deploy it to 16 atmospheres. Repeat angiography did show improved angiographic result. We again tried to pass another stent 2.25 x 12 mm Ma stent without success. At this the point wire was removed. Guide catheter removed. We did ask for a surgical consult but given the isolated right coronary stenosis and cardiomyopathy, aortic bypass surgery really did not seem to be a great option. The guide catheter was removed. Heparin was administered throughout the entire procedure to maintain appropriate angulation. Temporary transvenous pacemaker placement. In anticipation of orbital rotational atherectomy of the right coronary artery temporary transvenous pacemaker was placed through a right femoral venous sheath to the apex. Appropriate capture was confirmed. Backup rate set to 60 beats per minute. CONCLUSION 1. Severe tortuous, calcified mid right coronary stenosis. 2. Successful percutaneous angioplasty and partially successful percutaneous intervention with stenting with drug-eluting stent. 3. Normal left-sided filling pressures. 4. Successful temporary transvenous pacemaker placement. PLAN At this point hopefully the balloon angioplasty result will lead to improve symptoms. We are going to maximize her medical therapy with beta yasmin, aspirin, Plavix, statin and long-acting nitrate. At this point there is no reason for any further attempts at the right coronary artery in terms of any future interventions. Very aggressive attempts to pass several stents were unsuccessful. Next step would be consideration of a right internal mammary graft to the mid to distal right coronary if all other options are exhausted. MD DIPIKA Campos/SARAH /4:36 PM /10:34 AM TYREE
[2017-05-17] MEDS ORDERED: PHARMACY ORDERED LAB ONE (02:45)
== END 2017-05-16 10:50 | disposition home or self-care (01) | DRG 853 ==
LOC: PHED 11:05 → PHEDA 13:29 → MERGE 13:29 → EDBD 13:29 → PHICU 15:31 → HIMW 05-14 18:30
PROVIDERS: ADMIT Internal Medicine Critical Care Medicine; ATTEND Internal Medicine Critical Care Medicine
PROC: 5A1935Z Respiratory Ventilation, Less than 24 Consecutive Hours (ICD-10-PCS; 2017-05-13)
PROC: 0BH17EZ Insertion of Endotracheal Airway into Trachea, Via Natural or Artificial Opening (ICD-10-PCS; 2017-05-13)
PROC: 027034Z Dilation of Coronary Artery, One Artery with Drug-eluting Intraluminal Device, Percutaneous Approach (ICD-10-PCS; 2017-05-15)
PROC: B2111ZZ Fluoroscopy of Multiple Coronary Arteries using Low Osmolar Contrast (ICD-10-PCS; 2017-05-15)
PROC: 4A023N7 Measurement of Cardiac Sampling and Pressure, Left Heart, Percutaneous Approach (ICD-10-PCS; 2017-05-15)
PROC: X2C0361 Extirpation of Matter from Coronary Artery, One Artery using Orbital Atherectomy Technology, Percutaneous Approach, New Technology Group 1 (ICD-10-PCS; principal; 2017-05-15 13:00)
DX: A41.9 Sepsis, unspecified organism (principal); J96.01 Acute respiratory failure with hypoxia; I21.4 Non-ST elevation (NSTEMI) myocardial infarction; I46.9 Cardiac arrest, cause unspecified; J96.02 Acute respiratory failure with hypercapnia; I11.0 Hypertensive heart disease with heart failure; E87.2 Acidosis; J15.1 Pneumonia due to Pseudomonas; I50.42 Chronic combined systolic (congestive) and diastolic (congestive) heart failure; J44.0 Chronic obstructive pulmonary disease with (acute) lower respiratory infection; E11.51 Type 2 diabetes mellitus with diabetic peripheral angiopathy without gangrene; G14 Postpolio syndrome; E11.65 Type 2 diabetes mellitus with hyperglycemia; F32.9 Major depressive disorder, single episode, unspecified; K21.9 Gastro-esophageal reflux disease without esophagitis; I25.2 Old myocardial infarction; Z87.891 Personal history of nicotine dependence
CPT/HCPCS: 31500; 33210; 36600; 43753; 51702; 70450; 71010; 71275; 76937; 80048; 80053; 80061; 81001; 82550; 82552; 82805; 82948; 83735; 83880; 84100; 84443; 84484; 85002; 85007; 85025; 85027; 85347; 85610; 87040; 87070; 87077; 87186; 87205; 87449; 87641; 87804; 92933; 93005; 93306; 93454; 93970; 94002; 94003; 94150; 94640; 94664; 96365; 96368; 96375; 99292; C1714; C1725; C1769; C1874; C1887; C1893; J0330; J0360; J0456; J1644; J1650; J1815; J1940; J2250; J2270; J2543; J3010; J3370; J3480; J7050; Q9967

== ENCOUNTER 2018-08-26 11:40 | Inpatient (IN) ==
[2018-08-26] MEDS ORDERED: Vancomycin Inj 1,000 MG in Sodium Chlor 0.9% Inj 250 ML IV.SIG ONE (15:01)
[2018-08-26] MEDS ORDERED: Piperacil/Tazo 3.375 GM Premix 3.375 GM/50 ML PIGGYBACK IV.SIG ONE (15:01)
--- NOTE | 2018-08-26 15:03 | ED ---
HPI General Chief complaint: Skin/Abscess/Foreign Body Stated complaint: Poss Infection Left Leg Time Seen by Provider: 08/26/18 14:42 History of Present Illness HPI narrative: This is a 72-year-old female with history of peripheral vascular disease, post polio syndrome, diabetes, CHF, still occasionally smokes, presents for evaluation of wounds on her lower extremities. She reports that 3 months ago she had stenting in her left leg by Dr. Gonzalez. She reports that shortly thereafter she developed a wound on her left leg which has progressively worsened, particularly over the past week. She has been seeing a wound care nurse 3 times a week. She was advised to come here for further evaluation as the wound on the left leg seems to be worsening. She reports pain , aching, worse with palpation. Denies any fevers, chills, chest pain, shortness of breath. Primary care physician is Dr. Irving. No other complaints. Related Data Home Medications Medication Instructions Recorded Confirmed aripiprazole 2 mg PO DAILY 08/26/18 08/26/18 aspirin 81 mg PO DAILY 08/26/18 08/26/18 atorvastatin 40 mg PO QPM 08/26/18 08/26/18 clopidogrel [Plavix] 75 mg PO DAILY 08/26/18 08/26/18 fesoterodine [Toviaz] 8 mg PO DAILY 08/26/18 08/26/18 fluticasone-salmeterol [AirDuo 1 puff INHALATION BID 08/26/18 08/26/18 RespiClick] furosemide [Lasix] 20 mg PO DAILY 08/26/18 08/26/18 gabapentin 300 mg PO BID 08/26/18 08/26/18 glimepiride 2 mg PO QAM 08/26/18 08/26/18 hydrocodone-acetaminophen [[place]] 1 tab PO Q6H PRN 08/26/18 08/26/18 insulin detemir U-100 [Levemir 25 units SUBCUT BID 08/26/18 08/26/18 FlexTouch U-100 Insuln] lansoprazole 30 mg PO DAILY 08/26/18 08/26/18 metformin 500 mg PO BID 08/26/18 08/26/18 mirabegron [Myrbetriq] 50 mg PO DAILY 08/26/18 08/26/18 potassium chloride 10 meq PO DAILY 08/26/18 08/26/18 Allergies Allergy/AdvReac Type Severity Reaction Status Date / Time morphine Allergy Severe Confusion Verified 08/27/18 06:47 Review of Systems ROS: all other systems reviewed are negative PMFSH Social History Social History Substance History: No History of Abuse Second Hand Smoke Exposure: Yes Smoking Status: Current every day smoker Tobacco Type: Cigarettes How Often Do You Have a Drink Containing Alcohol: Never Recent Travel in [facility] within the Last 8 Weeks: No Recent Out of Country Travel within the Last 8 Weeks: No Immunization History Tetanus Immunization: Unsure Exam Narrative Exam Narrative: GENERAL: Well-developed well-nourished female no acute distress SKIN: Warm and dry. Examination of the lower extremities reveals a large deep ulceration on the lateral aspect of the left lower leg which is foul-smelling. There is surrounding erythema. Examination of the right lower leg reveals a superficial ulceration. HEAD: Atraumatic. Normocephalic. EYES: Pupils equal and round. No scleral icterus. No injection or drainage. ENT: No nasal bleeding or discharge. Mucous membranes pink and moist. NECK: Trachea midline. No JVD. CARDIOVASCULAR: Regular rate and rhythm. No murmur appreciated. RESPIRATORY: No accessory muscle use. Clear to auscultation. Breath sounds equal bilaterally. GASTROINTESTINAL: Abdomen soft, non-tender, nondistended. Hepatic and splenic margins not palpable. MUSCULOSKELETAL: Skin as noted above. Faintly dopplerable dorsalis pedis pulses bilaterally. NEUROLOGICAL: Awake and alert. No obvious cranial nerve deficits. Motor grossly within normal limits. Normal speech. Course Initial Documented Vital Signs Temperature 98.3 F 08/26/18 12:04 Pulse Rate 102 H 08/26/18 12:04 Respiratory Rate 20 08/26/18 12:04 Blood Pressure 180/74 H 08/26/18 12:04 Pulse Oximetry 98 08/26/18 12:04 Last Documented Vital Signs Temperature 98.6 F 08/27/18 20:00 Pulse Rate 105 H 08/27/18 20:00 Respiratory Rate 18 08/27/18 20:00 Blood Pressure 182/77 H 08/27/18 20:00 Pulse Oximetry 96 08/27/18 22:23 Medical Decision Making JESSICA Attestation JESSICA supervised visit: Yes Attestation: I, Dr. Jeong, have reviewed the advance practice practitioner's documentation and am in agreement, met with the patient face to face, made the diagnosis, and the medical decision making was done by me. *My assessment and Findings: Leg ulcer with cellulitis MDM Narrative Medical decision making narrative: 72-year-old female with history of diabetes, peripheral vascular disease, occasional tobacco use, presents with a progressively worsening painful ulceration on the lateral left lower leg. On examination she has a large deep ulceration which is foul-smelling with surrounding cellulitic changes, faintly dopplerable dorsalis pedis pulses. She was placed on ECG monitoring pulse oximetry. Lab work, wound culture, blood cultures ordered. The patient was given vancomycin and Zosyn. Lab work is been reviewed. At this point time the plan is to admit the patient for further treatment. Discussed with Dr. Gaspar. Medical Screen Exam Complete: Yes Emergency Medical Condition: Yes Differential Diagnosis Differential Diagnosis: Peripheral vascular disease, venous stasis ulcer, cellulitis, osteomyelitis Lab Data Result diagrams: 08/27/18 03:59 08/27/18 03:59 Lab Results 08/26/18 08/26/18 08/26/18 Range/Units 15:09 15:09 15:09 WBC 8.9 (4.0-11.0) th/mm3 RBC 4.25 (4.00-5.30) mil/mm3 Hgb 11.2 L (11.6-15.3) gm/dL Hct 35.0 (35.0-46.0) % MCV 82.5 (80.0-100.0) fL MCH 26.3 L (27.0-34.0) pg MCHC 31.9 L (32.0-36.0) % RDW 15.2 (11.6-17.2) % Plt Count 428 (150-450) th/mm3 MPV 8.5 (7.0-11.0) fL Neut % (Auto) 72.1 H (16.0-70.0) % Lymph % (Auto) 16.6 (9.0-44.0) % Mccone % (Auto) 8.8 H (0.0-8.0) % Eos % (Auto) 1.7 (0.0-4.0) % Baso % (Auto) 0.8 (0.0-2.0) % Neut # (Auto) 6.4 (1.8-7.7) th/mm3 Lymph # (Auto) 1.5 (1.0-4.8) th/mm3 Mccone # (Auto) 0.8 (0.0-0.9) th/mm3 Eos # (Auto) 0.1 (0.0-0.4) th/mm3 Baso # (Auto) 0.1 (0.0-0.2) th/mm3 WBC Differential . Differential Comment Auto diff final Sodium 138 (136-145) meq/L Potassium 3.7 (3.5-5.1) meq/L Chloride 101 (98-107) meq/L Carbon Dioxide 28.6 (21.0-32.0) meq/L Anion Gap 8 (5-15) meq/L BUN 15 (7-18) mg/dL Creatinine 0.67 (0.50-1.00) mg/dL Estimated GFR 86 L (>89) mL/min POC Glucose (68-110) mg/dl Random Glucose 171 H (74-106) mg/dL Lactic Acid 1.0 (0.4-2.0) mmol/L Calcium 8.9 (8.5-10.1) mg/dL Magnesium 1.6 (1.5-2.5) mg/dL Total Bilirubin 0.3 (0.2-1.0) mg/dL AST 17 (15-37) U/L ALT 20 (10-53) U/L Alkaline Phosphatase 165 H (45-117) U/L Total Protein 8.9 H (6.4-8.2) g/dL Albumin 3.4 (3.4-5.0) g/dL 08/26/18 08/27/18 08/27/18 Range/Units 20:44 03:59 03:59 WBC 10.7 (4.0-11.0) th/mm3 RBC 4.11 (4.00-5.30) mil/mm3 Hgb 10.7 L (11.6-15.3) gm/dL Hct 33.5 L (35.0-46.0) % MCV 81.4 (80.0-100.0) fL MCH 26.0 L (27.0-34.0) pg MCHC 32.0 (32.0-36.0) % RDW 15.4 (11.6-17.2) % Plt Count 384 (150-450) th/mm3 MPV 8.5 (7.0-11.0) fL Neut % (Auto) 77.2 H (16.0-70.0) % Lymph % (Auto) 11.7 (9.0-44.0) % Mccone % (Auto) 9.3 H (0.0-8.0) % Eos % (Auto) 1.3 (0.0-4.0) % Baso % (Auto) 0.5 (0.0-2.0) % Neut # (Auto) 8.2 H (1.8-7.7) th/mm3 Lymph # (Auto) 1.3 (1.0-4.8) th/mm3 Mccone # (Auto) 1.0 H (0.0-0.9) th/mm3 Eos # (Auto) 0.1 (0.0-0.4) th/mm3 Baso # (Auto) 0.1 (0.0-0.2) th/mm3 WBC Differential . Differential Comment Auto diff final Sodium 138 (136-145) meq/L Potassium 3.2 L (3.5-5.1) meq/L Chloride 101 (98-107) meq/L Carbon Dioxide 27.9 (21.0-32.0) meq/L Anion Gap 9 (5-15) meq/L BUN 13 (7-18) mg/dL Creatinine 0.62 (0.50-1.00) mg/dL Estimated GFR Greater than 89 (>89) mL/min POC Glucose 212 H (68-110) mg/dl Random Glucose 168 H (74-106) mg/dL Lactic Acid (0.4-2.0) mmol/L Calcium 8.5 (8.5-10.1) mg/dL Magnesium (1.5-2.5) mg/dL Total Bilirubin (0.2-1.0) mg/dL AST (15-37) U/L ALT (10-53) U/L Alkaline Phosphatase (45-117) U/L Total Protein (6.4-8.2) g/dL Albumin (3.4-5.0) g/dL 08/27/18 08/27/18 08/27/18 Range/Units 08:10 12:20 17:36 WBC (4.0-11.0) th/mm3 RBC (4.00-5.30) mil/mm3 Hgb (11.6-15.3) gm/dL Hct (35.0-46.0) % MCV (80.0-100.0) fL MCH (27.0-34.0) pg MCHC (32.0-36.0) % RDW (11.6-17.2) % Plt Count (150-450) th/mm3 MPV (7.0-11.0) fL Neut % (Auto) (16.0-70.0) % Lymph % (Auto) (9.0-44.0) % Mccone % (Auto) (0.0-8.0) % Eos % (Auto) (0.0-4.0) % Baso % (Auto) (0.0-2.0) % Neut # (Auto) (1.8-7.7) th/mm3 Lymph # (Auto) (1.0-4.8) th/mm3 Mccone # (Auto) (0.0-0.9) th/mm3 Eos # (Auto) (0.0-0.4) th/mm3 Baso # (Auto) (0.0-0.2) th/mm3 WBC Differential Differential Comment Sodium (136-145) meq/L Potassium (3.5-5.1) meq/L Chloride (98-107) meq/L Carbon Dioxide (21.0-32.0) meq/L Anion Gap (5-15) meq/L BUN (7-18) mg/dL Creatinine (0.50-1.00) mg/dL Estimated GFR (>89) mL/min POC Glucose 217 H 175 H 274 H (68-110) mg/dl Random Glucose (74-106) mg/dL Lactic Acid (0.4-2.0) mmol/L Calcium (8.5-10.1) mg/dL Magnesium (1.5-2.5) mg/dL Total Bilirubin (0.2-1.0) mg/dL AST (15-37) U/L ALT (10-53) U/L Alkaline Phosphatase (45-117) U/L Total Protein (6.4-8.2) g/dL Albumin (3.4-5.0) g/dL 08/27/18 Range/Units 20:02 WBC (4.0-11.0) th/mm3 RBC (4.00-5.30) mil/mm3 Hgb (11.6-15.3) gm/dL Hct (35.0-46.0) % MCV (80.0-100.0) fL MCH (27.0-34.0) pg MCHC (32.0-36.0) % RDW (11.6-17.2) % Plt Count (150-450) th/mm3 MPV (7.0-11.0) fL Neut % (Auto) (16.0-70.0) % Lymph % (Auto) (9.0-44.0) % Mccone % (Auto) (0.0-8.0) % Eos % (Auto) (0.0-4.0) % Baso % (Auto) (0.0-2.0) % Neut # (Auto) (1.8-7.7) th/mm3 Lymph # (Auto) (1.0-4.8) th/mm3 Mccone # (Auto) (0.0-0.9) th/mm3 Eos # (Auto) (0.0-0.4) th/mm3 Baso # (Auto) (0.0-0.2) th/mm3 WBC Differential Differential Comment Sodium (136-145) meq/L Potassium (3.5-5.1) meq/L Chloride (98-107) meq/L Carbon Dioxide (21.0-32.0) meq/L Anion Gap (5-15) meq/L BUN (7-18) mg/dL Creatinine (0.50-1.00) mg/dL Estimated GFR (>89) mL/min POC Glucose 138 H (68-110) mg/dl Random Glucose (74-106) mg/dL Lactic Acid (0.4-2.0) mmol/L Calcium (8.5-10.1) mg/dL Magnesium (1.5-2.5) mg/dL Total Bilirubin (0.2-1.0) mg/dL AST (15-37) U/L ALT (10-53) U/L Alkaline Phosphatase (45-117) U/L Total Protein (6.4-8.2) g/dL Albumin (3.4-5.0) g/dL Imaging Data Radiologist's impression: Aorta w/Runoff CTA 08/27/18 00:00 CONCLUSION: 1. Extensive arteriosclerotic calcification with diffuse areas of mild luminal narrowing both inflow and outflow. There is one segment in the proximal left superficial femoral artery with greater than 70% narrowing. 2. Bilateral adrenal masses, stable from 2017. Discharge Plan Discharge Disposition Patient Disposition: ED Admit(ED Internal Use Only) Discharge Condition Condition: Stable Discharge Order Discharge Orders: ED Use Only Admit Order (Routine); Ordered 08/26/18 Ordered By: Haider La Discharge Details Diagnosis: Leg ulcer, left, Cellulitis Physicians Team ED Provider: Elijah Jeong ED Midlevel Provider: Haider La Primary Care Provider: Guru Irving Attending Provider: Zach Gaspar Other Providers: Galdino Chirinos ; Rachid Mauricio Status ED Status: Left Department Discharge Information Discharge Date/Time: 08/26/18 18:21
[2018-08-26 15:23] LABS: Baso # (Auto) 0.1 th/mm3 (0.0-0.2); Baso % (Auto) 0.8 % (0.0-2.0); Eos # (Auto) 0.1 th/mm3 (0.0-0.4); Eos % (Auto) 1.7 % (0.0-4.0); Hemoglobin 11.2 gm/dL (11.6-15.3); Lymph # (Auto) 1.5 th/mm3 (1.0-4.8); Lymph % (Auto) 16.6 % (9.0-44.0); Mean Corpuscular HGB Conc 31.9 % (32.0-36.0); Mean Corpuscular Hemoglobin 26.3 pg (27.0-34.0); Mean Corpuscular Volume 82.5 fL (80.0-100.0); Mean Platelet Volume 8.5 fL (7.0-11.0); Mono # (Auto) 0.8 th/mm3 (0.0-0.9); Mono % (Auto) 8.8 % (0.0-8.0); Neut # (Auto) 6.4 th/mm3 (1.8-7.7); Neut % (Auto) 72.1 % (16.0-70.0); Platelet Count 428 th/mm3 (150-450); Red Blood Count 4.25 mil/mm3 (4.00-5.30); Red Cell Distribution Width 15.2 % (11.6-17.2); White Blood Count 8.9 th/mm3 (4.0-11.0)
[2018-08-26 15:41] LABS: Alkaline Phosphatase 165 U/L (45-117); Total Protein 8.9 g/dL (6.4-8.2)
[2018-08-26 15:42] LABS: Alanine Aminotransferase 20 U/L (10-53); Albumin 3.4 g/dL (3.4-5.0); Anion Gap 8 meq/L (5-15); Aspartate Aminotransferase 17 U/L (15-37); Blood Urea Nitrogen 15 mg/dL (7-18); Calcium 8.9 mg/dL (8.5-10.1); Carbon Dioxide 28.6 meq/L (21.0-32.0); Chloride 101 meq/L (98-107); Glomerular Filtration Rate 86 mL/min (>89); Glucose,Random 171 mg/dL (74-106); Magnesium 1.6 mg/dL (1.5-2.5); Potassium 3.7 meq/L (3.5-5.1); Sodium 138 meq/L (136-145)
--- NOTE | 2018-08-26 17:23 | P.HPIM ---
History of Present Illness Primary Care Physician: Guru Irving MD, PhD History of Present Illness: Mrs. Trivedi is a 72 y/o WF with HTN, Diabtes mellitus, CAD/Cardiomyopathy, hyperlipidemia, depression, Lumbar DDD/post-polio syndrome, aortic atherosclerosis, COPD/asthma and severe PAD. Pt had a previous left open common femoral endarterectomy and ELHAM placement left common iliac to external iliac by Dr. Viv Meneses at [facility] on 05/21/18. Pt has had issues with wound healing since that time. She has been receiving local wound care with [facility] wound care/Dr Best's office. She was seen at wound care office today and was recommended to report to the ED for further evaluation and antibiotics for two noted wounds, one on the right lateral leg and the other is a large LLE deep ulceration on the lateral aspect of the left lower leg with foul-smelling drainage and surrounding erythema. Pts WBC count in the ED was 8.9. No reported fevers or chills. Blood cultures and wound cultures were taken in the ED. Pt was given a dose of IV Vancomycin and Zosyn in the ED. Past Medical Hx: HTN Diabetes mellitus, renal manifestations with CKD stage II, polyneuropathy CAD/Hx of NSTEMI ischemic Cardiomyopathy, EF 40-45% Hyperlipidemia Depression Lumbar DDD/post-polio syndrome/chronic LE weakness/paraplegia Carotid stenosis Aortic atherosclerosis COPD/asthma Hx of respiratory failure Severe PAD, left subclavian stenosis Chronic LE wound 2D echo 12/2017 with EF 35-40%, mod MR Past Surgical Hx: Left open common femoral endarterectomy and ELHAM placement left common iliac to external iliac by Dr. Viv Meneses at [facility] on 05/21/18 [facility] s/p POBA RCA (10/23/16) PCI with ELHAM RCA (05/15/17) Cholecystectomy Cesarian section Cataract surgery Family Hx: Mother with hx of CVA, skin cancer Father with hx of CAD Social Hx: Hx of tobacco use Diagnosis (1) Leg ulcer, left: (2) Cellulitis: (3) Hyperlipidemia: (4) HTN (hypertension): (5) Diabetes mellitus: (6) CAD (coronary artery disease): Inpatient Certification Inpatient Certification: I certify that the inpatient services were ordered in accordance with Medicare regulations governing the order. This includes certification that hospital inpatient services are reasonable and necessary and in the case of services not specified as inpatient-only under 42 CFR 419.22(n), that they are appropriately provided as inpatient services in accordance to with the 2-midnight benchmark under 43 CFR 412.3(e) Estimated Total Length of Stay (Days): 3 Plans for Post Hospital Care: Not yet determined Medications and Allergies Allergies Allergy/AdvReac Type Severity Reaction Status Date / Time morphine Allergy Severe Confusion Verified 08/27/18 06:47 Home Medications Medication Instructions Recorded Confirmed Type aripiprazole 2 mg PO DAILY 08/26/18 08/26/18 History aspirin 81 mg PO DAILY 08/26/18 08/26/18 History atorvastatin 40 mg PO QPM 08/26/18 08/26/18 History clopidogrel [Plavix] 75 mg PO DAILY 08/26/18 08/26/18 History fesoterodine [Toviaz] 8 mg PO DAILY 08/26/18 08/26/18 History fluticasone-salmeterol [AirDuo 1 puff INHALATION BID 08/26/18 08/26/18 History RespiClick] furosemide [Lasix] 20 mg PO DAILY 08/26/18 08/26/18 History gabapentin 300 mg PO BID 08/26/18 08/26/18 History glimepiride 2 mg PO QAM 08/26/18 08/26/18 History hydrocodone-acetaminophen [[place]] 1 tab PO Q6H PRN 08/26/18 08/26/18 History insulin detemir U-100 [Levemir 25 units SUBCUT BID 08/26/18 08/26/18 History FlexTouch U-100 Insuln] lansoprazole 30 mg PO DAILY 08/26/18 08/26/18 History metformin 500 mg PO BID 08/26/18 08/26/18 History mirabegron [Myrbetriq] 50 mg PO DAILY 08/26/18 08/26/18 History potassium chloride 10 meq PO DAILY 08/26/18 08/26/18 History Active Medications: Active Medications Acetaminophen (Tylenol) 650 mg PO Q4H PRN PRN Reason: Temp > 100.4 Al Hydroxide/Mg Hydroxide (Milk Of Magnesia Liq) 30 ml PO Q12H PRN PRN Reason: Mild Constipation Ondansetron HCl (Zofran Inj) 4 mg IV.PUSH Q6H PRN PRN Reason: NAUSEA OR VOMITING Senna/Docusate Sodium (Carissa-Colace) 1 tab PO BID ELYSIA Sodium Chloride (Ns Flush) 2 ml IV.FLUSH BID ELYSIA Sodium Chloride (Ns Flush) 2 ml IV.FLUSH PRN PRN PRN Reason: FLUSH AFTER USING IV ACCESS Physical Exam Vital signs: Last Vital Signs Temp 98.3 F 08/26/18 12:04 Pulse 99 H 08/26/18 14:58 Resp 18 08/26/18 12:08 BP 161/120 H 08/26/18 14:58 Pulse Ox 99 08/26/18 15:25 Narrative: GENERAL: NAD, AAOx3 SKIN: RLE shallow ulcer on the lateral leg and a large LLE deep ulceration on the lateral aspect of the left lower leg with foul-smelling drainage and surrounding erythema HEENT: Atraumatic. Normocephalic. Pupils equal and round. No scleral icterus. No injection or drainage. No nasal bleeding or discharge. Mucous membranes pink and moist. NECK: Trachea midline. No JVD. CARDIOVASCULAR: Regular rate and rhythm. RESPIRATORY: No accessory muscle use. Clear to auscultation. Breath sounds equal bilaterally. GASTROINTESTINAL: Abdomen soft, non-tender, nondistended. Hepatic and splenic margins not palpable. MUSCULOSKELETAL: Bilateral pedal edema, left worse than right. NEUROLOGICAL: Awake and alert. No obvious cranial nerve deficits. Motor grossly within normal limits. Normal speech. PSYCHIATRIC: Appropriate mood and affect; insight and judgment normal. Results Labs CBC & Chem 7: 08/27/18 03:59 08/27/18 03:59 Caprini VTE Risk Assessment Caprini VTE Risk Assessment: Moderate/High Risk (score >= 2) Caprini Risk Assessment Model: Point Value = 1 Point Value = 2 Point Value = 3 Point Value = 5 Age 41-60 Minor surgery BMI > 25 kg/m2 Swollen legs Varicose veins or History of unexplained or recurrent spontaneous Oral contraceptives or hormone replacement Sepsis (< 1 month) Serious lung disease, including pneumonia (< 1 month) Abnormal pulmonary function Acute myocardial infarction Congestive heart failure (< 1 month) History of inflammatory bowel disease Medical patient at bed rest Age 61-74 Arthroscopic surgery Major open surgery (> 45 min) Laparoscopic surgery (> 45 min) Malignancy Confined to bed (> 72 hours) Immobilizing plaster cast Central venous access Age >= 75 History of VTE Family history of VTE Factor V Leiden Prothrombin [id number] Lupus anticoagulant Anticardiolipin antibodies Elevated serum homocysteine Heparin-induced thrombocytopenia Other congenital or acquired thrombophilia Stroke (< 1 month) Elective arthroplasty Hip, pelvis, or leg fracture Acute spinal cord injury (< 1 month) Prophylaxis Regimen: Total Risk Factor Score Risk Level Prophylaxis Regimen 0-1 Low Early ambulation 2 Moderate Order ONE of the following: *Sequential Compression Device (SCD) *Heparin 5000 units SQ BID 3-4 Higher Order ONE of the following medications: *Heparin 5000 units SQ TID *Enoxaparin/Lovenox 40 mg SQ daily (WT < 150 kg, CrCl > 30 mL/min) *Enoxaparin/Lovenox 30 mg SQ daily (WT < 150 kg, CrCl > 10-29 mL/min) *Enoxaparin/Lovenox 30 mg SQ BID (WT < 150 kg, CrCl > 30 mL/min) AND/OR *Sequential Compression Device (SCD) 5 or more Highest Order ONE of the following medications: *Heparin 5000 units SQ TID (Preferred with Epidurals) *Enoxaparin/Lovenox 40 mg SQ daily (WT < 150 kg, CrCl > 30 mL/min) *Enoxaparin/Lovenox 30 mg SQ daily (WT < 150 kg, CrCl > 10-29 mL/min) *Enoxaparin/Lovenox 30 mg SQ BID (WT < 150 kg, CrCl > 30 mL/min) AND *Sequential Compression Device (SCD) Assessment and Plan Assessment (1) Leg ulcer, left: Code(s): L97.929 - Non-pressure chronic ulcer of unspecified part of left lower leg with unspecified severity Status: Chronic (2) Cellulitis: Code(s): L03.90 - Cellulitis, unspecified Status: Acute (3) Hyperlipidemia: Code(s): E78.5 - Hyperlipidemia, unspecified Status: Chronic (4) HTN (hypertension): Code(s): I10 - Essential (primary) hypertension Status: Chronic (5) Diabetes mellitus: Code(s): E11.9 - Type 2 diabetes mellitus without complications Status: Chronic (6) CAD (coronary artery disease): Code(s): I25.10 - Atherosclerotic heart disease of [place] coronary artery without angina pectoris Status: Chronic Plan Nonhealing bilateral LE wounds (L worse than R) Severe PAD - Pt is a 72 y/o WF with HTN, Diabetes mellitus, CAD/Cardiomyopathy, hyperlipidemia, depression, Lumbar DDD/post-polio syndrome, aortic atherosclerosis, COPD/asthma and severe PAD. Per outpt records pt had a previous left open common femoral endarterectomy and ELHAM placement left common iliac to external iliac by Dr. Viv Meneses at [facility] on 05/21/18. Pt has had issues with wound healing which was not improved after this intervention. She has been receiving local wound care with [facility] wound care/Dr Best's office. She was seen at wound care office today and was recommended to report to the ED for further evaluation and antibiotics for two noted wounds, one on the right lateral leg and the other is a large LLE deep ulceration on the lateral aspect of the left lower leg with foul-smelling drainage and surrounding erythema. - Pts WBC count in the ED was 8.9. - Blood cultures and wound cultures were taken in the ED. - Pt was given a dose of IV Vancomycin and Zosyn in the ED. - Cont. Vancomycin IV with pharmacy to dose and continue IV Zosyn - Wound care consult - Podiatry consult - Try to obtain exact records of LE vascular procedure she had at [facility] - Await wound cultures - Monitor labs - Resume the pts Plavix - Grapevine 10/325 Q6H PRN pain (home med) - DVT prophylaxis with Lovenox Diabetes mellitus - NovoLog SSI - Accu checks - Hold OHA - Pt may need Levemir but will monitor BS readings Cardiomyopathy, EF 35-40% on echo in 12/2017 - Cont. Lasix and KCl at home dose - monitor labs Depression - Cont. home meds COPD Asthma - Resume home meds - Duonebs PRN Attending Attestation The exam, history, and the medical decision-making described in the above note were completed with the assistance of the mid-level provider. I reviewed and agree with the findings presented. I attest that I had a [id number] encounter with the patient on the same day, and personally performed and documented my assessment and findings in the medical record. Patient examined. Assessment and plan formulated with Rebecca Hurt PA-C. I agree with the above. _ (1) Leg ulcer, left Qualifiers: Non-pressure ulcer stage: (2) Cellulitis Qualifiers: Laterality: Site of cellulitis: Site of cellulitis of extremity: Site of cellulitis of trunk:
[2018-08-26] MEDS ORDERED: Vancomycin Consult Pharmacy OTHER PRN (17:37)
[2018-08-26] MEDS ORDERED: Dextrose 50% in Water 50 ML Vial IV.PUSH PRN (17:41)
[2018-08-26] MEDS ORDERED: Vancomycin Inj 750 MG in Sodium Chlor 0.9% Inj 250 ML IV.SIG ONE (18:30)
[2018-08-26] MEDS: Insulin NovoLOG Aspart Correctional Sugar Inj SQ SCH (20:56)
[2018-08-26] MEDS: Piperacil/Tazo 3.375 GM Premix 3.375 GM/50 ML PIGGYBACK IV.SIG SCH (20:57)
[2018-08-26] MEDS: Gabapentin 300 MG Capsule PO SCH (20:58)
[2018-08-26] MEDS: Senna/Docusate Sodium 8.6/50 MG Tablet PO SCH (20:58)
[2018-08-26] MEDS ORDERED: FLUTICASONE SALMETEROL INH SCH (21:00)
[2018-08-26] MEDS: Furosemide 20 MG Tablet PO SCH (21:38)
[2018-08-26] MEDS: Nystatin 100,000 UNITS/GM Powder 15 GM Bottle TOPICAL SCH (21:38)
[2018-08-27] MEDS: Piperacil/Tazo 3.375 GM Premix 3.375 GM/50 ML PIGGYBACK IV.SIG SCH ×4 (02:52→20:02)
[2018-08-27 05:02] LABS: Baso # (Auto) 0.1 th/mm3 (0.0-0.2); Baso % (Auto) 0.5 % (0.0-2.0); Eos # (Auto) 0.1 th/mm3 (0.0-0.4); Eos % (Auto) 1.3 % (0.0-4.0); Hematocrit 33.5 % (35.0-46.0); Hemoglobin 10.7 gm/dL (11.6-15.3); Lymph # (Auto) 1.3 th/mm3 (1.0-4.8); Lymph % (Auto) 11.7 % (9.0-44.0); Mean Corpuscular Volume 81.4 fL (80.0-100.0); Mean Platelet Volume 8.5 fL (7.0-11.0); Mono % (Auto) 9.3 % (0.0-8.0); Neut # (Auto) 8.2 th/mm3 (1.8-7.7); Neut % (Auto) 77.2 % (16.0-70.0); Platelet Count 384 th/mm3 (150-450); Red Blood Count 4.11 mil/mm3 (4.00-5.30); Red Cell Distribution Width 15.4 % (11.6-17.2); White Blood Count 10.7 th/mm3 (4.0-11.0)
[2018-08-27 05:31] LABS: Anion Gap 9 meq/L (5-15); Blood Urea Nitrogen 13 mg/dL (7-18); Calcium 8.5 mg/dL (8.5-10.1); Carbon Dioxide 27.9 meq/L (21.0-32.0); Chloride 101 meq/L (98-107); Glomerular Filtration Rate Greater Than 89 mL/min (>89); Glucose,Random 168 mg/dL (74-106); Potassium 3.2 meq/L (3.5-5.1); Sodium 138 meq/L (136-145)
[2018-08-27] MEDS: Furosemide 20 MG Tablet PO SCH (08:43)
[2018-08-27] MEDS: Tolterodine Tartrate LA 4 MG Capsule PO SCH (08:43)
[2018-08-27] MEDS: Gabapentin 300 MG Capsule PO SCH ×2 (08:43→20:02)
[2018-08-27] MEDS: Senna/Docusate Sodium 8.6/50 MG Tablet PO SCH ×2 (08:43→20:02)
[2018-08-27] MEDS: ARIPiprazole 2 MG Tablet PO SCH (08:43)
[2018-08-27] MEDS: Enoxaparin Inj 30 MG/0.3 ML Syringe SQ SCH (08:44)
[2018-08-27] MEDS: Nystatin 100,000 UNITS/GM Powder 15 GM Bottle TOPICAL SCH ×4 (08:45→20:05)
[2018-08-27] MEDS: Insulin NovoLOG Aspart Correctional Sugar Inj SQ SCH ×4 (08:45→20:02)
[2018-08-27] MEDS ORDERED: Furosemide 20 MG Tablet PO SCH (09:00)
--- NOTE | 2018-08-27 11:46 | P.PNIM ---
Subjective Interval history: Pt's pain is controlled with PO hydrocodone. Pt is eating well. She denies n/v/d. Physical Exam Vital signs: Last Vital Signs Temp 99.0 F 08/27/18 08:00 Pulse 95 H 08/27/18 08:00 Resp 20 08/27/18 09:41 BP 140/65 08/27/18 08:00 Pulse Ox 94 L 08/27/18 08:00 Narrative: GENERAL: NAD, AAOx3 SKIN: RLE shallow ulcer on the lateral leg and large LLE deep ulceration on the lateral aspect of the left lower leg with foul- smelling drainage and surrounding erythema HEENT: Atraumatic. Normocephalic. Pupils equal and round. No scleral icterus. No injection or drainage. No nasal bleeding or discharge. Mucous membranes pink and moist. NECK: Trachea midline. No JVD. CARDIOVASCULAR: Regular rate and rhythm. RESPIRATORY: No accessory muscle use. Clear to auscultation. Breath sounds equal bilaterally. GASTROINTESTINAL: Abdomen soft, non-tender, nondistended. Hepatic and splenic margins not palpable. MUSCULOSKELETAL: Bilateral pedal edema, left worse than right. NEUROLOGICAL: Awake and alert. No obvious cranial nerve deficits. Motor grossly within normal limits. Normal speech. PSYCHIATRIC: Appropriate mood and affect; insight and judgment normal. Results Labs CBC & Chem 7: 08/28/18 04:00 08/28/18 04:00 Assessment and Plan Assessment (1) Leg ulcer, left: Code(s): L97.929 - Non-pressure chronic ulcer of unspecified part of left lower leg with unspecified severity Status: Chronic (2) Cellulitis: Code(s): L03.90 - Cellulitis, unspecified Status: Acute (3) Hyperlipidemia: Code(s): E78.5 - Hyperlipidemia, unspecified Status: Chronic (4) HTN (hypertension): Code(s): I10 - Essential (primary) hypertension Status: Chronic (5) Diabetes mellitus: Code(s): E11.9 - Type 2 diabetes mellitus without complications Status: Chronic (6) CAD (coronary artery disease): Code(s): I25.10 - Atherosclerotic heart disease of [place] coronary artery without angina pectoris Status: Chronic Plan Nonhealing bilateral LE wounds (L worse than R) Severe PAD - Pt is a 72 y/o WF with HTN, Diabetes mellitus, CAD/Cardiomyopathy, hyperlipidemia, depression, Lumbar DDD/post-polio syndrome, aortic atherosclerosis, COPD/asthma and severe PAD. Per outpt records pt had a previous left open common femoral endarterectomy and ELHAM placement left common iliac to external iliac by Dr. Viv Meneses at [facility] on 05/21/18. Pt has had issues with wound healing which was not improved after this intervention. She has been receiving local wound care with [facility] wound care/Dr Best's office. She was seen at wound care office today and was recommended to report to the ED for further evaluation and antibiotics for two noted wounds, one on the right lateral leg and the other is a large LLE deep ulceration on the lateral aspect of the left lower leg with foul-smelling drainage and surrounding erythema. - WBC 8.9 (08/26), 10.7 (08/27) - Blood Cx (08/26) --> NGTD - Wound Gram stain (08/26) --> may gram negative rods. Many pleomorphic gram positive rods. - Wound Cx (08/26) --> growing 3 mixed enteric gram negative rods with NO predominant organism. Will continue to follow - Vancomycin ( - presnet) - Zosyn (08/26 - present) - Appreciate input from Wound Care - Case d/w Dr. Frank (08/27). He will consult later this evening. - Pt may require wound debridement in the OR - on 11/18/17 Pt underwent b/l LE revascularization procedure with Dr. Viv Meneses at [facility] - nearly occlusive left common femoral artery, high-grade proximal external iliac artery stenosis, moderate left common iliac artery disease however NO high grade stenosis. - placement of left distal common iliac to external ilac 6x40 self expanding stent - right common iliac artery with high-grade stenosis at its origin patent external iliac stent with moderate instent stenosis moderate to severe right common femoral disease - Plavix - [place] 10/325 Q6H PRN pain (home med) - DVT prophylaxis with Lovenox Diabetes mellitus - NovoLog SSI - Accu checks - Hold OHA - Pt may need Levemir but will monitor BS readings Cardiomyopathy, EF 35-40% on echo in 12/2017 - Cont. Lasix and KCl at home dose - monitor labs Depression - Cont. home meds COPD Asthma - Resume home meds - Duonebs PRN Progress Note: Quality VTE Deep Vein Thrombosis/Pulmonary Embolism Present on Admission: No _ (1) Leg ulcer, left Qualifiers: Non-pressure ulcer stage: (2) Cellulitis Qualifiers: Laterality: Site of cellulitis: Site of cellulitis of extremity: Site of cellulitis of trunk:
--- NOTE | 2018-08-27 13:21 | P.PNWCN ---
Wound Care Nurse Consult Description: Received wound management consult for bilateral LE wound, left worse than R on lateral legs from Rebecca KIM for [facility]. Communicated with: Spoke with Caitie KIM, Doctor Chasity and RN Zarina vance Recommendation: 1.Please consult Podiatry for L lower extremity. 2. Please leave dressing in place to R lower anterior leg for 5 days or change if saturated or dislodged as follows. Cleanse wound with wound cleanser or normal saline and pat dry. Apply Puracol AG to wound bed cut to fit and cover with optifoam basic, secure dressing with rolled gauze and tape. 3. Please leave dressing on L lower extremity in place until podiatry sees patient. Wound/Pressure Injury - Wound Left lower lateral leg Wound Assessment: Ongoing Wound Type: Traumatic Wound Is This a Chronic Wound: Yes Requested from Provider a Wound Care Consult: Yes (Patient seen today by inpatient wound care nurse) Length (cm): 7 Width (cm): 4.2 Depth (cm): 0.4 Wound Bed Appearance: Wound bed presents with ~20% dry, black tissue to edges of wound, ~10% dry yellow tissue, and ~70% dark red dry tissue. Periwound presents erythema circumferentially. Surrounding Tissue Appearance: Erythema Surrounding Tissue Temperature: Cool Drainage Amount: None Drainage Odor: Slight Odor Dressing Status: Changed Cleansing Solution: Saline Topical: small amount of hydrogel Primary Dressing: Foam AG gentle 8x8 cut to fit dressing Cover Dressing: Gauze Roll/Wrap Tape Type: Paper Wound Dressing Change Date: 08/27/18 Wound Margin Description: Steep Right Lower Anterior Leg Wound Assessment: Ongoing Wound Type: Traumatic Wound Is This a Chronic Wound: Yes Requested from Provider a Wound Care Consult: Yes (Patient seen today by inpatient wound care nurse) Length (cm): 3 Width (cm): 1.2 Depth (cm): 0.4 Wound Bed Appearance: Red Wound Bed Appearance: 100% red granulated tissue. Surrounding Tissue Appearance: [place] Surrounding Tissue Temperature: Cool Drainage Description: Serosanguinous Drainage Amount: Scant Drainage Odor: No Odor Dressing Status: Changed Cleansing Solution: Saline Wound Packing Type: Collagen (puracol AG) Primary Dressing: optifoam basic Cover Dressing: Gauze Roll/Wrap Tape Type: Paper Wound Dressing Change Date: 08/27/18 Wound Margin Description: Well defined wound margins. - Additional Information Patient seen today for bilateral LE wound, L worse than R on lateral legs. Patient is laying in bed when writer producer arrived.Bordered gauzed dressing noted on R lower anterior leg. L lateral lower leg wound is open to air. Wound bed to L lower lateral leg presents with ~20% dry, black tissue to edges of wound, ~10% dry yellow tissue, and ~70% dark red dry tissue. Periwound presents erythema circumferentially. L lower leg is cool to touch with palpable pedal pulses. Wound has a slight odor.Wound was cleansed with normal saline and patted dry. Applied small amount of hydrogel to wound bed and covered wound with Foam AG gentle 8x8 dressing cut to fit over wound. Dressing was secured with rolled gauze and tape. Removed Bordered gauze in place to R anterior lower leg to reveal wound. Wound bed presents with 100% red granulation tissue and appears to have new pink epithelial tissue at edges. Wound drainage is scant and sero-sanguinous without odor. Wound was cleansed with yonathan saline and patted dry and applied puracol AG to wound bed and covered wound with Optifoam basic dressing. Secured dressing in place with rolled gauze and tape. Patient tolerated dressing change and wound assessment fairly with complaints of constant severe pain from L lower extremity wound. Full wound description, measurements and wound care recommendations are noted above.
--- NOTE | 2018-08-27 14:34 | P.CONVS ---
History of Present Illness Service: Vascular Surgery Consult date: 08/27/18 Requesting Physician: Zach Gaspar Reason for Consult: PAD Primary Care Provider: uGru Irving MD, PhD Chief Complaint: 72 yo female with LEFT leg wound and PAD History of Present Illness: 72 yo female with L LE wound present for some time, she notes that it was improving but worsened of late. Has been seeing local wound care and admitted for regression of wound. Wound is on lateral aspect of LEFT calf. Pt notes that she does walk with a walker. Had a L WATCHSTANDER TEA and iliac stent at another hospital 3 months ago that the patient notes was complicated by re-operation (?wound issue) Review of Systems Constitutional: Denies chills, Denies fever(s) Cardiovascular: Denies chest pain, Denies chest pain at rest Gastrointestinal: Denies abdominal pain Musculoskeletal: Reports body aches, Reports limited joint movement PMFSH - History History Provided By: Patient - Medical History Medical History: Medical History (Last Reviewed 08/27/18 @ 14:29 by Rachid Mauricio MD) Diabetes PAD (peripheral artery disease) - Tobacco History Second Hand Smoke Exposure: Yes Tobacco Use In Past 30 Days: Yes Smoking Status: Current every day smoker Tobacco Type: Cigarettes - Alcohol History How Often Do You Have a Drink Containing Alcohol: Never - Substance Use History Substance History: No History of Abuse - Travel History Recent Travel in the [place] Within the Last 8 Weeks: No Recent Travel Out of the Country Within the Last 8 Weeks: No - Immunization History Tetanus Immunization: Unsure Hx Influenza Vaccine This Season: No Medications and Allergies Active Medications: Active Medications Acetaminophen (Tylenol) 650 mg PO Q4H PRN PRN Reason: Temp > 100.4 Hydrocodone Bitart/Acetaminophen ([place] 10/325) 1 tab PO Q6H PRN PRN Reason: Pain 1-10 Last Admin: 08/27/18 09:04 Dose: 1 tab Al Hydroxide/Mg Hydroxide (Milk Of Magnesia Liq) 30 ml PO Q12H PRN PRN Reason: Mild Constipation Aripiprazole (Abilify) 2 mg PO DAILY [facility] Last Admin: 08/27/18 08:43 Dose: 2 mg Aspirin (Aspirin Chew) 81 mg PO DAILY [facility] Last Admin: 08/27/18 08:43 Dose: 81 mg Atorvastatin Calcium (Lipitor) 40 mg PO HS [facility] Last Admin: 08/26/18 20:58 Dose: 40 mg Clonidine HCl (Catapres) 0.1 mg PO Q6H PRN PRN Reason: SBP>180, DBP>110 Clopidogrel Bisulfate (Plavix) 75 mg PO DAILY [facility] Last Admin: 08/27/18 08:43 Dose: 75 mg Dextrose (D50w Vial) 50 ml IV.PUSH UNSCH PRN PRN Reason: PER HYPOGLYCEMIA PROTOCOL Enalaprilat (Vasotec Inj) 1.25 mg IV.PUSH Q6H PRN PRN Reason: SBP>180, DBP>110 Enoxaparin Sodium (Lovenox Inj) 30 mg SQ DAILY [facility] Last Admin: 08/27/18 08:44 Dose: 30 mg Furosemide (Lasix) 20 mg PO DAILY [facility] Last Admin: 08/27/18 08:43 Dose: 20 mg Gabapentin (Neurontin) 300 mg PO BID [facility] Last Admin: 08/27/18 08:43 Dose: 300 mg Glucagon (Glucagon Inj) 1 mg OTHER PRN PRN PRN Reason: for Hypoglycemia Protocol Piperacillin/Tazobactam/Dextrose (Zosyn 3.375 Gm Premix) 3.375 gm in 50 mls @ 100 mls/hr IV.SIG Q6H [facility] Last Infusion: 08/27/18 09:14 Dose: Infused Vancomycin HCl 1,000 mg/ (Sodium Chloride) 250 mls @ 250 mls/hr IV.SIG Q24H [facility] Insulin Aspart (Novolog Insulin Correctional Sugar Inj) 0 unit SQ ACHS [facility]; Protocol Last Admin: 08/27/18 12:47 Dose: 1 unit Miscellaneous Information ([facility] Ordered Lab Info) 0 each OTHER ONCE ONE Stop: 08/29/18 17:46 Nystatin (Mycostatin Powder) 1 applicatio TOPICAL QID [facility] Last Admin: 08/27/18 12:48 Dose: 1 applicatio Ondansetron HCl (Zofran Inj) 4 mg IV.PUSH Q6H PRN PRN Reason: NAUSEA OR VOMITING Pantoprazole Sodium (Protonix) 40 mg PO DAILY [facility] Last Admin: 08/27/18 08:42 Dose: 40 mg Pt Own (Fluticasone- Salmeterol [Airduo Respiclick] 55/14 Mcg Inh 1 each INH BID [facility] Pharmacy Profile Note (Vancomycin Consult Pharmacy) 1 each OTHER UNSCH PRN PRN Reason: Pharmacy to dose Potassium Chloride (Klor-Con 10) 10 meq PO DAILY [facility] Last Admin: 08/27/18 08:43 Dose: 10 meq Senna/Docusate Sodium (Carissa-Colace) 1 tab PO BID [facility] Last Admin: 08/27/18 08:43 Dose: 1 tab Sodium Chloride (Ns Flush) 2 ml IV.FLUSH BID [facility] Last Admin: 08/27/18 08:44 Dose: 2 ml Sodium Chloride (Ns Flush) 2 ml IV.FLUSH PRN PRN PRN Reason: FLUSH AFTER USING IV ACCESS Tolterodine Tartrate (Detrol La) 4 mg PO DAILY [facility] Last Admin: 08/27/18 08:43 Dose: 4 mg Allergies Allergy/AdvReac Type Severity Reaction Status Date / Time morphine Allergy Severe Confusion Verified 08/27/18 06:47 Home Medications Medication Instructions Recorded Confirmed Type aripiprazole 2 mg PO DAILY 08/26/18 08/26/18 History aspirin 81 mg PO DAILY 08/26/18 08/26/18 History atorvastatin 40 mg PO QPM 08/26/18 08/26/18 History clopidogrel [Plavix] 75 mg PO DAILY 08/26/18 08/26/18 History fesoterodine [Toviaz] 8 mg PO DAILY 08/26/18 08/26/18 History fluticasone-salmeterol [AirDuo 1 puff INHALATION BID 08/26/18 08/26/18 History RespiClick] furosemide [Lasix] 20 mg PO DAILY 08/26/18 08/26/18 History gabapentin 300 mg PO BID 08/26/18 08/26/18 History glimepiride 2 mg PO QAM 08/26/18 08/26/18 History hydrocodone-acetaminophen [[place]] 1 tab PO Q6H PRN 08/26/18 08/26/18 History insulin detemir U-100 [Levemir 25 units SUBCUT BID 08/26/18 08/26/18 History FlexTouch U-100 Insuln] lansoprazole 30 mg PO DAILY 08/26/18 08/26/18 History metformin 500 mg PO BID 08/26/18 08/26/18 History mirabegron [Myrbetriq] 50 mg PO DAILY 08/26/18 08/26/18 History potassium chloride 10 meq PO DAILY 08/26/18 08/26/18 History Physical Exam Vital Signs / I&O: Vital Signs 08/26/18 14:58 08/26/18 15:25 08/26/18 17:54 Temperature Pulse Rate 99 H 102 H Respiratory Rate 18 Blood Pressure 161/120 H 186/76 H Pulse Oximetry 99 97 08/26/18 20:00 08/26/18 23:49 08/27/18 04:21 Temperature 98.1 F 98.5 F 98.4 F Pulse Rate 100 H 114 H 104 H Respiratory Rate 17 17 17 Blood Pressure 149/95 H 165/66 H 166/70 H Pulse Oximetry 97 96 94 L 08/27/18 08:00 08/27/18 09:04 08/27/18 09:41 Temperature 99.0 F Pulse Rate 95 H Respiratory Rate 18 16 20 Blood Pressure 140/65 Pulse Oximetry 94 L 08/27/18 12:00 Temperature 97.2 F L Pulse Rate 97 H Respiratory Rate 18 Blood Pressure 138/65 Pulse Oximetry 97 Intake & Output 08/26/18 08/27/18 08/27/18 18:59 06:59 18:59 Intake Total 50 / 50 845 / 845 50 / 50 Balance 50 / 50 845 / 845 50 / 50 Weight 68.039 kg 59 kg Intake: IV 50 / 50 365 / 365 50 / 50 Zosyn 3.375 GM Premix 3.375 gm 50 / 50 100 / 100 50 / 50 In 50 ml @ 100 mls/hr IV.SIG Q6H [facility] Rx#:[id number] Vancomycin Inj 750 MG In NS Inj 265 / 265 250 ML @ 250 mls/hr IV.SIG ONCE ONE Rx#:[id number] Oral 480 / 480 Other: # Voids 6 Weight On Admission 68.039 kg Neuro: alert, somewhat HYDABURG MCKEON, left leg less so HEENT: NC/AT Neck: no JVD Heart: reg rate Lungs: distant BS bilaterally Vascular: no palpable L femoral pulse; + R femoral pulse no popliteal or pedal pulses L groin wound healed without erythema Extremities: LEFT lateral leg with superficial eschar, foot edematous and swollen Laboratory Results - last 24 hr 08/26/18 08/26/18 08/26/18 15:09 15:09 15:09 WBC 8.9 RBC 4.25 Hgb 11.2 L Hct 35.0 MCV 82.5 MCH 26.3 L MCHC 31.9 L RDW 15.2 Plt Count 428 MPV 8.5 Neut % (Auto) 72.1 H Lymph % (Auto) 16.6 [place] % (Auto) 8.8 H Eos % (Auto) 1.7 Baso % (Auto) 0.8 Neut # (Auto) 6.4 Lymph # (Auto) 1.5 [place] # (Auto) 0.8 Eos # (Auto) 0.1 Baso # (Auto) 0.1 WBC Differential . Differential Comment Auto diff final Sodium 138 Potassium 3.7 Chloride 101 Carbon Dioxide 28.6 Anion Gap 8 BUN 15 Creatinine 0.67 Estimated GFR 86 L POC Glucose Random Glucose 171 H Lactic Acid 1.0 Calcium 8.9 Magnesium 1.6 Total Bilirubin 0.3 AST 17 ALT 20 Alkaline Phosphatase 165 H Total Protein 8.9 H Albumin 3.4 08/26/18 08/27/18 08/27/18 20:44 03:59 03:59 WBC 10.7 RBC 4.11 Hgb 10.7 L Hct 33.5 L MCV 81.4 MCH 26.0 L MCHC 32.0 RDW 15.4 Plt Count 384 MPV 8.5 Neut % (Auto) 77.2 H Lymph % (Auto) 11.7 [place] % (Auto) 9.3 H Eos % (Auto) 1.3 Baso % (Auto) 0.5 Neut # (Auto) 8.2 H Lymph # (Auto) 1.3 [place] # (Auto) 1.0 H Eos # (Auto) 0.1 Baso # (Auto) 0.1 WBC Differential . Differential Comment Auto diff final Sodium 138 Potassium 3.2 L Chloride 101 Carbon Dioxide 27.9 Anion Gap 9 BUN 13 Creatinine 0.62 Estimated GFR Greater than 89 POC Glucose 212 H Random Glucose 168 H Lactic Acid Calcium 8.5 Magnesium Total Bilirubin AST ALT Alkaline Phosphatase Total Protein Albumin 08/27/18 08/27/18 08:10 12:20 WBC RBC Hgb Hct MCV MCH MCHC RDW Plt Count MPV Neut % (Auto) Lymph % (Auto) [place] % (Auto) Eos % (Auto) Baso % (Auto) Neut # (Auto) Lymph # (Auto) [place] # (Auto) Eos # (Auto) Baso # (Auto) WBC Differential Differential Comment Sodium Potassium Chloride Carbon Dioxide Anion Gap BUN Creatinine Estimated GFR POC Glucose 217 H 175 H Random Glucose Lactic Acid Calcium Magnesium Total Bilirubin AST ALT Alkaline Phosphatase Total Protein Albumin Microbiology 08/26/18 15:09 Gram Stain - Final Abscess - Leg Wound Culture - Preliminary 08/26/18 15:00 Aerobic Blood Culture - Preliminary Blood - Peripheral No growth in 1 day Anaerobic Blood Culture - Preliminary No growth in 1 day 08/26/18 15:09 Aerobic Blood Culture - Preliminary Blood - Peripheral No growth in 1 day Anaerobic Blood Culture - Preliminary No growth in 1 day Assessment and Plan - Plan She has PAD and what sounds like an inflow procedure elsewhere 3m ago (L WATCHSTANDER TEA and iliac stent). I don't feel a LEFT femoral pulse and given her history of endovascular interventions and aorto-iliac disease by exam, I need more imaging. Furthermore, her wound is not typical for PAD; however, it certainly won't heal without additional perfusion. The larger question is her overall limb salvage candidacy - they would appears more like a pressure ulcer and to that end, she needs PT/ambulation challenging. 1. CV risk factor modification - ASA, statin 2. ABIs - ordered 3. CTA A/P to toes - ordered because of apparent inflow (aorto-iliac) disease on physical exam 4. PT/OOB/ambulation 5. wound care will follow closely. Rachid Mauricio MD FACS F[employer] boiler house operator [facility] - Heart and Vascular Surgery at [facility] [phone]
[2018-08-27] MEDS: Vancomycin Inj 1,000 MG in Sodium Chlor 0.9% Inj 250 ML IV.SIG SCH (17:48)
--- NOTE | 2018-08-27 19:22 | MB ---
cc: Galdino Frank DPM DATE: 08/27/2018 REASON FOR CONSULTATION: Bilateral lower extremity wounds, left worse than right. HISTORY OF PRESENT ILLNESS: The patient was quite sleepy, arousable, not the best historian. History was taken mainly from the chart. This is a 72-year-old female who is status post vascular intervention from [facility] by Dr. Meneses, unsure of the exact surgery. It appears the patient has worsening left lateral leg wound and a pretibial wound on the right. Vascular has been ordered for workup before debridement. Currently, I am seeing the patient at bedside. Other than being very sleepy, she is in no acute distress. PAST MEDICAL HISTORY: Peripheral vascular disease, diabetes, renal manifestations, stage II chronic kidney disease, ischemic myopathy, hyperlipidemia, depression, postpolio syndrome, chronic weakness of the legs, carotid artery stenosis, aortic atherosclerosis, COPD, asthma, history of respiratory failure, severe PAD, left subclavian stenosis, chronic lower extremity wounds. PAST SURGICAL HISTORY: Open common femoral endarterectomy, left iliac to external iliac by Dr. Meneses 05/21/2018. Cholecystectomy, surgery, cataract surgery. SOCIAL HISTORY: History of tobacco use. ALLERGIES: MORPHINE. INPATIENT MEDICATIONS: Reviewed. She is receiving Plavix currently Zosyn, vancomycin. Please see complete medication list in the chart. PHYSICAL EXAMINATION: GENERAL: This is alert and oriented female, somewhat drowsy. EXTREMITIES: Bilateral lower extremities are examined. There are chronic skin changes noted. There is weakness of the extremities. The lateral leg appears to have a shane-black wound bed, a depth that appears to be down to likely fascia and muscle belly. There is no active odor or drainage. It appears to be expansile. Wound measurements are approximately 7 cm, 4 cm, ranging from 2-4 mm in depth. The right pretibial ulceration measures approximately 3 x 1 cm, approximately 0.5 cm in depth. No periwound erythema. The right lower extremity appears to be healthier better, turgor and tone, but there is chronic lichenification of skin. There is limited range of motion of the foot and ankle. The feet remain warm. There is delayed CFT to digits. LABORATORY DATA: White blood cell 10.7, hemoglobin and hematocrit, 10 and 33, platelet count 384. Chem-7: Sodium 138, potassium 3.2, chloride 101, CO2 27.9, BUN is 13, creatinine 0.62. Random glucose is 212. MICROBIAL FINDINGS: Blood culture: No growth 1 day. Gram stain leg: Gram-positive rods. ASSESSMENT AND PLAN: Bilateral lower extremity ulcers, left worse than right. Peripheral artery disease. Reviewed notes from medicine as well as vascular. I do agree that the lateral leg wound appears to be a mixture of possible ischemic ulcer and a pressure ulcer. Will await vascular recommendations. At this point, I am unsure if debridement is the best idea, for it may cause a deeper wound that has possibly no chance of healing without adequate circulation. We will continue to follow along. ELAINE George/maria victoria , 06:06 PM , 06:15 PM
--- NOTE | 2018-08-27 23:41 | CT ---
EXAM DATE: 08/27/2018 11:17 PM EST AGE/SEX: 72 years / Female INDICATIONS: Peripheral artery disease. CLINICAL DATA: This is the patient's initial encounter. Patient reports that signs and symptoms have been present for 1 day and indicates a pain score of 0/10. MEDICAL/SURGICAL HISTORY: Peripheral artery disease. Diabetes. . Iliac stents. RADIATION DOSE: 3.44 CTDI (mGy) COMPARISON: No prior exams available for comparison. TECHNIQUE: Volumetric scanning was performed using a multi-row detector CT scanner during bolus infu shayy of 99 ml Omnipaque 350 (iohexol) nonionic water-soluble contrast as a single exam dose. The d cali was post processed with a variety of visualization algorithms including full volume maximum inten sity projection, multi-planar sliding thin slab reformation, curved planar reformation, and surface r endering techniques. Using automated exposure control and adjustment of the mA and/or kV according t o patient size, radiation dose was kept as low as reasonably achievable to obtain optimal diagnostic quality images. DICOM format image data is available electronically for review and comparison. FINDINGS: Abdominal aorta: Normal diameter. Diffuse prominent arteriosclerotic calcifications. No significant n arrowing of the celiac, SMA or renal arteries. There are 2 left renal arteries. Inflow: Diffuse arteriosclerotic calcification in the iliac and femoral vessels causing mild diffuse luminal narrowing. 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 Outflow: Diffuse severe arteriosclerotic calcifications in the thigh and calf vessels. There is a 4 c m long segment in the left superficial femoral artery with greater than 70% luminal narrowing. No ves mary occlusion seen. There is two-vessel runoff to the distal calf bilaterally. Other: Bilateral adrenal masses measuring 2.1 x 1.9 cm on the right and 3.5 x 2.3 cm on the left, sta ble in size and appearance when compared to prior CT thorax in October 2016. CONCLUSION: 1. Extensive arteriosclerotic calcification with diffuse areas of mild luminal narrowing both inflow and outflow. There is one segment in the proximal left superficial femoral artery with greater than 70% narrowing. 2. Bilateral adrenal masses, stable from 2017. Electronically signed by: Suman Costa MD Board Certified Radiologist 08/27/2018 11:40 PM EST
[2018-08-28] MEDS: Piperacil/Tazo 3.375 GM Premix 3.375 GM/50 ML PIGGYBACK IV.SIG SCH ×4 (03:42→20:49)
[2018-08-28 05:17] LABS: Baso # (Auto) 0.1 th/mm3 (0.0-0.2); Baso % (Auto) 0.8 % (0.0-2.0); Eos # (Auto) 0.2 th/mm3 (0.0-0.4); Eos % (Auto) 1.9 % (0.0-4.0); Hematocrit 31.3 % (35.0-46.0); Hemoglobin 10.2 gm/dL (11.6-15.3); Lymph # (Auto) 1.5 th/mm3 (1.0-4.8); Lymph % (Auto) 16.1 % (9.0-44.0); Mean Corpuscular HGB Conc 32.6 % (32.0-36.0); Mean Corpuscular Hemoglobin 26.6 pg (27.0-34.0); Mean Corpuscular Volume 81.4 fL (80.0-100.0); Mean Platelet Volume 8.6 fL (7.0-11.0); Mono # (Auto) 0.8 th/mm3 (0.0-0.9); Mono % (Auto) 9.1 % (0.0-8.0); Neut # (Auto) 6.7 th/mm3 (1.8-7.7); Neut % (Auto) 72.1 % (16.0-70.0); Platelet Count 372 th/mm3 (150-450); Red Blood Count 3.84 mil/mm3 (4.00-5.30); Red Cell Distribution Width 15.4 % (11.6-17.2); White Blood Count 9.3 th/mm3 (4.0-11.0)
[2018-08-28 05:39] LABS: Anion Gap 7 meq/L (5-15); Blood Urea Nitrogen 11 mg/dL (7-18); Calcium 8.1 mg/dL (8.5-10.1); Carbon Dioxide 28.7 meq/L (21.0-32.0); Chloride 105 meq/L (98-107); Glomerular Filtration Rate Greater Than 89 mL/min (>89); Glucose,Random 182 mg/dL (74-106); Magnesium 1.5 mg/dL (1.5-2.5); Potassium 3.3 meq/L (3.5-5.1); Sodium 141 meq/L (136-145)
[2018-08-28] MEDS: Tolterodine Tartrate LA 4 MG Capsule PO SCH (08:39)
[2018-08-28] MEDS: Enoxaparin Inj 30 MG/0.3 ML Syringe SQ SCH (08:39)
[2018-08-28] MEDS: Senna/Docusate Sodium 8.6/50 MG Tablet PO SCH ×2 (08:40→20:50)
[2018-08-28] MEDS: Gabapentin 300 MG Capsule PO SCH ×2 (08:40→20:48)
[2018-08-28] MEDS: ARIPiprazole 2 MG Tablet PO SCH (08:40)
[2018-08-28] MEDS: Insulin NovoLOG Aspart Correctional Sugar Inj SQ SCH ×4 (08:59→20:51)
[2018-08-28] MEDS: Furosemide 20 MG Tablet PO SCH (08:59)
[2018-08-28] MEDS: Nystatin 100,000 UNITS/GM Powder 15 GM Bottle TOPICAL SCH ×4 (09:00→23:53)
--- NOTE | 2018-08-28 10:16 | P.PNVS ---
Subjective Subjective/Hospital Course: Pt seen and anatomy/surgery discussed with patient and . Pt with overall body pain . L LE no different Objective Vital Signs / I&O: Vital Signs 08/27/18 12:00 08/27/18 14:51 08/27/18 15:39 Temperature 97.2 F L 98.7 F Pulse Rate 97 H 104 H Respiratory Rate 18 18 18 Blood Pressure 138/65 150/62 H Pulse Oximetry 97 97 08/27/18 20:00 08/27/18 22:23 08/28/18 00:00 Temperature 98.6 F 98.4 F Pulse Rate 105 H 97 H Respiratory Rate 18 18 Blood Pressure 182/77 H 138/65 Pulse Oximetry 96 96 95 08/28/18 08:00 08/28/18 08:41 Temperature 98.2 F Pulse Rate 96 H Respiratory Rate 18 Blood Pressure 151/68 H Pulse Oximetry 95 92 L Intake & Output 08/27/18 08/28/18 08/28/18 18:59 06:59 18:59 Intake Total 600 / 600 350 / 350 Balance 600 / 600 350 / 350 Weight 62 kg Intake: IV 100 / 100 350 / 350 Zosyn 3.375 GM Premix 3.375 gm 100 / 100 100 / 100 In 50 ml @ 100 mls/hr IV.SIG Q6H [facility] Rx#:[id number] Vancomycin Inj 1,000 MG In NS 250 / 250 Inj 250 ML @ 250 mls/hr IV.SIG Q24H [facility] Rx#:[id number] Oral 500 / 500 Other: # Voids 5 1 # Incontinent Voids 3 3 Physical Exam: alert, MCKEON palpable L EIA pulse L groin healed. no pedal pulses Laboratory Results - last 24 hr 08/27/18 08/27/18 08/27/18 12:20 17:36 20:02 WBC RBC Hgb Hct MCV MCH MCHC RDW Plt Count MPV Neut % (Auto) Lymph % (Auto) [place] % (Auto) Eos % (Auto) Baso % (Auto) Neut # (Auto) Lymph # (Auto) [place] # (Auto) Eos # (Auto) Baso # (Auto) WBC Differential Differential Comment Sodium Potassium Chloride Carbon Dioxide Anion Gap BUN Creatinine Estimated GFR POC Glucose 175 H 274 H 138 H Random Glucose Calcium Magnesium 08/28/18 08/28/18 04:00 04:00 WBC 9.3 RBC 3.84 L Hgb 10.2 L Hct 31.3 L MCV 81.4 MCH 26.6 L MCHC 32.6 RDW 15.4 Plt Count 372 MPV 8.6 Neut % (Auto) 72.1 H Lymph % (Auto) 16.1 [place] % (Auto) 9.1 H Eos % (Auto) 1.9 Baso % (Auto) 0.8 Neut # (Auto) 6.7 Lymph # (Auto) 1.5 [place] # (Auto) 0.8 Eos # (Auto) 0.2 Baso # (Auto) 0.1 WBC Differential . Differential Comment Auto diff final Sodium 141 Potassium 3.3 L Chloride 105 Carbon Dioxide 28.7 Anion Gap 7 BUN 11 Creatinine 0.60 Estimated GFR Greater than 89 POC Glucose Random Glucose 182 H Calcium 8.1 L Magnesium 1.5 Microbiology 08/26/18 15:09 Gram Stain - Final Abscess - Leg Wound Culture - Preliminary Staphylococcus aureus 08/26/18 15:00 Aerobic Blood Culture - Preliminary Blood - Peripheral No growth in 1 day Anaerobic Blood Culture - Preliminary No growth in 1 day 08/26/18 15:09 Aerobic Blood Culture - Preliminary Blood - Peripheral No growth in 1 day Anaerobic Blood Culture - Preliminary No growth in 1 day Impressions Aorta w/Runoff CTA 08/27/18 00:00 CONCLUSION: 1. Extensive arteriosclerotic calcification with diffuse areas of mild luminal narrowing both inflow and outflow. There is one segment in the proximal left superficial femoral artery with greater than 70% narrowing. 2. Bilateral adrenal masses, stable from 2017. Assessment and Plan - Plan Multi-level occlusive disease and L LE tissue loss. CTA reviewed. ABIs pending. 1. Needs re-do LEFT groin reconstruction and L LE angiogram with endovascular intervention. Will schedule for Saturday 09/01. Pt and aware of magnitude of surgery and persistent chance of limb loss even with successful surgery. 2. Continue CV risk factor modification - ASA, statin 3. f/u ABIs - ordered 4. PT/OOB/ambulation 5. wound care will follow closely. Rachid Mauricio MD FACS FSV[employer] controller instructor [facility] - Heart and Vascular Surgery at [facility] [phone]
[2018-08-28] MEDS: Vancomycin Inj 1,000 MG in Sodium Chlor 0.9% Inj 250 ML IV.SIG SCH (18:29)
--- NOTE | 2018-08-28 18:53 | P.PNIM ---
Subjective Interval history: c/o continue LLE Physical Exam Vital signs: Last Vital Signs Temp 98.8 F 08/28/18 16:00 Pulse 101 H 08/28/18 16:00 Resp 18 08/28/18 16:00 BP 140/83 08/28/18 16:00 Pulse Ox 96 08/28/18 16:00 Narrative: GENERAL: NAD, AAOx3 SKIN: RLE shallow ulcer on the lateral leg and large LLE deep ulceration on the lateral aspect of the left lower leg with foul- smelling drainage and surrounding erythema HEENT: Atraumatic. Normocephalic. Pupils equal and round. No scleral icterus. No injection or drainage. No nasal bleeding or discharge. Mucous membranes pink and moist. NECK: Trachea midline. No JVD. CARDIOVASCULAR: Regular rate and rhythm. RESPIRATORY: No accessory muscle use. Clear to auscultation. Breath sounds equal bilaterally. GASTROINTESTINAL: Abdomen soft, non-tender, nondistended. Hepatic and splenic margins not palpable. MUSCULOSKELETAL: Bilateral pedal edema, left worse than right. NEUROLOGICAL: Awake and alert. No obvious cranial nerve deficits. Motor grossly within normal limits. Normal speech. PSYCHIATRIC: Appropriate mood and affect; insight and judgment normal. Results Labs CBC & Chem 7: 08/28/18 04:00 08/28/18 04:00 Assessment and Plan Assessment (1) Leg ulcer, left: Code(s): L97.929 - Non-pressure chronic ulcer of unspecified part of left lower leg with unspecified severity Status: Chronic (2) Cellulitis: Code(s): L03.90 - Cellulitis, unspecified Status: Acute (3) Hyperlipidemia: Code(s): E78.5 - Hyperlipidemia, unspecified Status: Chronic (4) HTN (hypertension): Code(s): I10 - Essential (primary) hypertension Status: Chronic (5) Diabetes mellitus: Code(s): E11.9 - Type 2 diabetes mellitus without complications Status: Chronic (6) CAD (coronary artery disease): Code(s): I25.10 - Atherosclerotic heart disease of [place] coronary artery without angina pectoris Status: Chronic Plan Nonhealing bilateral LE wounds (L worse than R) Severe PAD - Pt is a 72 y/o WF with HTN, Diabetes mellitus, CAD/Cardiomyopathy, hyperlipidemia, depression, Lumbar DDD/post-polio syndrome, aortic atherosclerosis, COPD/asthma and severe PAD. Per outpt records pt had a previous left open common femoral endarterectomy and ELHAM placement left common iliac to external iliac by Dr. Viv Meneses at [facility] on 05/21/18. Pt has had issues with wound healing which was not improved after this intervention. She has been receiving local wound care with [facility] wound care/Dr Best's office. She was seen at wound care office today and was recommended to report to the ED for further evaluation and antibiotics for two noted wounds, one on the right lateral leg and the other is a large LLE deep ulceration on the lateral aspect of the left lower leg with foul-smelling drainage and surrounding erythema. - WBC 8.9 (08/26), 10.7 (08/27) - Blood Cx (08/26) --> NGTD - Wound Gram stain (08/26) --> may gram negative rods. Many pleomorphic gram positive rods. - Wound Cx (08/26) --> growing 3 mixed enteric gram negative rods with NO predominant organism. Will continue to follow - Vancomycin ( - presnet) - Zosyn (08/26 - present) - Appreciate input from Wound Care - Case d/w Dr. Frank (08/27). He will consult later this evening. - Pt may require wound debridement in the OR - on 11/18/17 Pt underwent b/l LE revascularization procedure with Dr. Viv Meneses at [facility] - nearly occlusive left common femoral artery, high-grade proximal external iliac artery stenosis, moderate left common iliac artery disease however NO high grade stenosis. - placement of left distal common iliac to external ilac 6x40 self expanding stent - right common iliac artery with high-grade stenosis at its origin patent external iliac stent with moderate instent stenosis moderate to severe right common femoral disease - Plavix - [place] increased to 10/325 Q4H PRN pain (home med) - re-do LEFT groin reconstruction and LLE angiogram with endovascular intervention with Dr. Mauricio on Saturday09/01/18 - DVT prophylaxis with Lovenox Diabetes mellitus - NovoLog SSI - Accu checks - Hold OHA - Pt may need Levemir but will monitor BS readings Cardiomyopathy, EF 35-40% on echo in 12/2017 - Cont. Lasix and KCl at home dose - monitor labs Depression - Cont. home meds COPD Asthma - Resume home meds - Duonebs PRN Progress Note: Quality VTE Deep Vein Thrombosis/Pulmonary Embolism Present on Admission: No _ (1) Leg ulcer, left Qualifiers: Non-pressure ulcer stage: (2) Cellulitis Qualifiers: Laterality: Site of cellulitis: Site of cellulitis of extremity: Site of cellulitis of trunk:
--- NOTE | 2018-08-28 22:31 | P.PNPOD ---
Subjective Interval history: PVD, DM L > R wounds Physical Exam Vital signs: Vital Signs 08/28/18 00:00 08/28/18 08:00 08/28/18 08:41 Temperature 98.4 F 98.2 F Pulse Rate 97 H 96 H Respiratory Rate 18 18 Blood Pressure 138/65 151/68 H Pulse Oximetry 95 95 92 L 08/28/18 12:00 08/28/18 16:00 Temperature 98.6 F 98.8 F Pulse Rate 100 H 101 H Respiratory Rate 18 18 Blood Pressure 142/66 H 140/83 Pulse Oximetry 93 L 96 Intake & Output 08/28/18 08/28/18 08/29/18 06:59 18:59 06:59 Intake Total 350 / 350 820 / 820 250 / 250 Balance 350 / 350 820 / 820 250 / 250 Weight 62 kg Intake: IV 350 / 350 100 / 100 250 / 250 Zosyn 3.375 GM Premix 3.375 gm 100 / 100 100 / 100 In 50 ml @ 100 mls/hr IV.SIG Q6H [facility] Rx#:[id number] Vancomycin Inj 1,000 MG In NS 250 / 250 250 / 250 Inj 250 ML @ 250 mls/hr IV.SIG Q24H [facility] Rx#:[id number] Oral 720 / 720 Other: # Voids 1 2 # Incontinent Voids 3 3 # Bowel Movements 0 Narrative: LLE non palpable pulses. LLE intact dressing Medications and Allergies Active Medications: Active Medications Acetaminophen (Tylenol) 650 mg PO Q4H PRN PRN Reason: Temp > 100.4 Hydrocodone Bitart/Acetaminophen ([place] 10/325) 1 tab PO Q4HR [facility] Last Admin: 08/28/18 20:49 Dose: 1 tab Al Hydroxide/Mg Hydroxide (Milk Of Magnesia Liq) 30 ml PO Q12H PRN PRN Reason: Mild Constipation Aripiprazole (Abilify) 2 mg PO DAILY [facility] Last Admin: 08/28/18 08:40 Dose: 2 mg Aspirin (Aspirin Chew) 81 mg PO DAILY [facility] Last Admin: 08/28/18 08:40 Dose: 81 mg Atorvastatin Calcium (Lipitor) 40 mg PO HS [facility] Last Admin: 08/28/18 20:48 Dose: 40 mg Clonidine HCl (Catapres) 0.1 mg PO Q6H PRN PRN Reason: SBP>180, DBP>110 Last Admin: 08/27/18 20:02 Dose: 0.1 mg Clopidogrel Bisulfate (Plavix) 75 mg PO DAILY [facility] Last Admin: 08/28/18 08:39 Dose: 75 mg Dextrose (D50w Vial) 50 ml IV.PUSH UNSCH PRN PRN Reason: PER HYPOGLYCEMIA PROTOCOL Enalaprilat (Vasotec Inj) 1.25 mg IV.PUSH Q6H PRN PRN Reason: SBP>180, DBP>110 Enoxaparin Sodium (Lovenox Inj) 30 mg SQ DAILY [facility] Last Admin: 08/28/18 08:39 Dose: 30 mg Furosemide (Lasix) 20 mg PO DAILY [facility] Last Admin: 08/28/18 08:59 Dose: 20 mg Gabapentin (Neurontin) 300 mg PO BID [facility] Last Admin: 08/28/18 20:48 Dose: 300 mg Glucagon (Glucagon Inj) 1 mg OTHER PRN PRN PRN Reason: for Hypoglycemia Protocol Hydroxyzine HCl (Atarax) 25 mg PO Q6H PRN PRN Reason: ITCHING Piperacillin/Tazobactam/Dextrose (Zosyn 3.375 Gm Premix) 3.375 gm in 50 mls @ 100 mls/hr IV.SIG Q6H [facility] Last Admin: 08/28/18 20:49 Dose: 100 mls/hr Vancomycin HCl 1,000 mg/ (Sodium Chloride) 250 mls @ 250 mls/hr IV.SIG Q24H [facility] Last Infusion: 08/28/18 20:07 Dose: Infused Insulin Aspart (Novolog Insulin Correctional Sugar Inj) 0 unit SQ ACHS [facility]; Protocol Last Admin: 08/28/18 20:51 Dose: 3 unit Miscellaneous Information ([facility] Ordered Lab Info) 0 each OTHER ONCE ONE Stop: 08/29/18 17:46 Nystatin (Mycostatin Powder) 1 applicatio TOPICAL QID [facility] Last Admin: 08/28/18 20:01 Dose: 1 applicatio Ondansetron HCl (Zofran Inj) 4 mg IV.PUSH Q6H PRN PRN Reason: NAUSEA OR VOMITING Pantoprazole Sodium (Protonix) 40 mg PO DAILY [facility] Last Admin: 08/28/18 08:40 Dose: 40 mg Pt Own (Fluticasone- Salmeterol [Airduo Respiclick] 55/14 Mcg Inh 1 each INH BID [facility] Pharmacy Profile Note (Vancomycin Consult Pharmacy) 1 each OTHER UNSCH PRN PRN Reason: Pharmacy to dose Potassium Chloride (Klor-Con 10) 10 meq PO DAILY [facility] Last Admin: 08/28/18 08:59 Dose: 10 meq Senna/Docusate Sodium (Carissa-Colace) 1 tab PO BID [facility] Last Admin: 08/28/18 20:50 Dose: Not Given Sodium Chloride (Ns Flush) 2 ml IV.FLUSH BID [facility] Last Admin: 08/28/18 20:49 Dose: Not Given Sodium Chloride (Ns Flush) 2 ml IV.FLUSH PRN PRN PRN Reason: FLUSH AFTER USING IV ACCESS Tolterodine Tartrate (Detrol La) 4 mg PO DAILY [facility] Last Admin: 08/28/18 08:39 Dose: 4 mg Allergies Allergy/AdvReac Type Severity Reaction Status Date / Time morphine Allergy Severe Confusion Verified 08/27/18 06:47 Home Medications Medication Instructions Recorded Confirmed Type aripiprazole 2 mg PO DAILY 08/26/18 08/26/18 History aspirin 81 mg PO DAILY 08/26/18 08/26/18 History atorvastatin 40 mg PO QPM 08/26/18 08/26/18 History clopidogrel [Plavix] 75 mg PO DAILY 08/26/18 08/26/18 History fesoterodine [Toviaz] 8 mg PO DAILY 08/26/18 08/26/18 History fluticasone-salmeterol [AirDuo 1 puff INHALATION BID 08/26/18 08/26/18 History RespiClick] furosemide [Lasix] 20 mg PO DAILY 08/26/18 08/26/18 History gabapentin 300 mg PO BID 08/26/18 08/26/18 History glimepiride 2 mg PO QAM 08/26/18 08/26/18 History hydrocodone-acetaminophen [[place]] 1 tab PO Q6H PRN 08/26/18 08/26/18 History insulin detemir U-100 [Levemir 25 units SUBCUT BID 08/26/18 08/26/18 History FlexTouch U-100 Insuln] lansoprazole 30 mg PO DAILY 08/26/18 08/26/18 History metformin 500 mg PO BID 08/26/18 08/26/18 History mirabegron [Myrbetriq] 50 mg PO DAILY 08/26/18 08/26/18 History potassium chloride 10 meq PO DAILY 08/26/18 08/26/18 History Results - Labs CBC & Chem 7: 08/28/18 04:00 08/28/18 04:00 Laboratory Results - last 24 hr 08/28/18 08/28/18 08/28/18 04:00 04:00 13:52 WBC 9.3 RBC 3.84 L Hgb 10.2 L Hct 31.3 L MCV 81.4 MCH 26.6 L MCHC 32.6 RDW 15.4 Plt Count 372 MPV 8.6 Neut % (Auto) 72.1 H Lymph % (Auto) 16.1 [place] % (Auto) 9.1 H Eos % (Auto) 1.9 Baso % (Auto) 0.8 Neut # (Auto) 6.7 Lymph # (Auto) 1.5 [place] # (Auto) 0.8 Eos # (Auto) 0.2 Baso # (Auto) 0.1 WBC Differential . Differential Comment Auto diff final Sodium 141 Potassium 3.3 L Chloride 105 Carbon Dioxide 28.7 Anion Gap 7 BUN 11 Creatinine 0.60 Estimated GFR Greater than 89 POC Glucose 259 H Random Glucose 182 H Calcium 8.1 L Magnesium 1.5 08/28/18 08/28/18 18:39 19:49 WBC RBC Hgb Hct MCV MCH MCHC RDW Plt Count MPV Neut % (Auto) Lymph % (Auto) [place] % (Auto) Eos % (Auto) Baso % (Auto) Neut # (Auto) Lymph # (Auto) [place] # (Auto) Eos # (Auto) Baso # (Auto) WBC Differential Differential Comment Sodium Potassium Chloride Carbon Dioxide Anion Gap BUN Creatinine Estimated GFR POC Glucose 169 H 242 H Random Glucose Calcium Magnesium Microbiology 08/26/18 15:00 Blood - Peripheral Aerobic Blood Culture - Preliminary No growth in 2 days 08/26/18 15:00 Blood - Peripheral Anaerobic Blood Culture - Preliminary No growth in 2 days 08/26/18 15:09 Blood - Peripheral Aerobic Blood Culture - Preliminary No growth in 2 days 08/26/18 15:09 Blood - Peripheral Anaerobic Blood Culture - Preliminary No growth in 2 days 08/26/18 15:09 Abscess - Leg Gram Stain - Final 08/26/18 15:09 Abscess - Leg Wound Culture - Preliminary Staphylococcus aureus - Imaging Impressions Aorta w/Runoff CTA 08/27/18 00:00 CONCLUSION: 1. Extensive arteriosclerotic calcification with diffuse areas of mild luminal narrowing both inflow and outflow. There is one segment in the proximal left superficial femoral artery with greater than 70% narrowing. 2. Bilateral adrenal masses, stable from 2017. Assessment and Plan - Assessment (1) Cellulitis Code(s): L03.90 - Cellulitis, unspecified Status: Acute (2) Leg ulcer, left Code(s): L97.929 - Non-pressure chronic ulcer of unspecified part of left lower leg with unspecified severity Status: Chronic - Plan Pending vascular intervention 09/01/[address] Mauricio. Continue with daily wound care.
[2018-08-29] MEDS: Piperacil/Tazo 3.375 GM Premix 3.375 GM/50 ML PIGGYBACK IV.SIG SCH ×3 (02:21→15:49)
[2018-08-29] MEDS: Furosemide 20 MG Tablet PO SCH (09:11)
[2018-08-29] MEDS: Senna/Docusate Sodium 8.6/50 MG Tablet PO SCH ×2 (09:11→23:17)
[2018-08-29] MEDS: ARIPiprazole 2 MG Tablet PO SCH (09:12)
[2018-08-29] MEDS: Tolterodine Tartrate LA 4 MG Capsule PO SCH (09:12)
[2018-08-29] MEDS: Gabapentin 300 MG Capsule PO SCH ×2 (09:12→23:18)
[2018-08-29] MEDS: Insulin NovoLOG Aspart Correctional Sugar Inj SQ SCH ×4 (09:12→23:21)
[2018-08-29] MEDS: Enoxaparin Inj 30 MG/0.3 ML Syringe SQ SCH (09:13)
[2018-08-29] MEDS: Nystatin 100,000 UNITS/GM Powder 15 GM Bottle TOPICAL SCH ×4 (09:13→23:18)
--- NOTE | 2018-08-29 16:26 | P.PNIM ---
Subjective Interval history: Pt with increased confusion. Physical Exam Vital signs: Last Vital Signs Temp 98.4 F 08/29/18 12:00 Pulse 91 H 08/29/18 12:00 Resp 18 08/29/18 15:50 BP 168/70 H 08/29/18 12:00 Pulse Ox 91 L 08/29/18 12:00 Narrative: GENERAL: NAD, AAOx3 SKIN: RLE shallow ulcer on the lateral leg and large LLE deep ulceration on the lateral aspect of the left lower leg with foul- smelling drainage and surrounding erythema HEENT: Atraumatic. Normocephalic. Pupils equal and round. No scleral icterus. No injection or drainage. No nasal bleeding or discharge. Mucous membranes pink and moist. NECK: Trachea midline. No JVD. CARDIOVASCULAR: Regular rate and rhythm. RESPIRATORY: No accessory muscle use. Clear to auscultation. Breath sounds equal bilaterally. GASTROINTESTINAL: Abdomen soft, non-tender, nondistended. Hepatic and splenic margins not palpable. MUSCULOSKELETAL: Bilateral pedal edema, left worse than right. NEUROLOGICAL: Awake and alert. No obvious cranial nerve deficits. Motor grossly within normal limits. Normal speech. PSYCHIATRIC: Appropriate mood and affect; insight and judgment normal. Results Labs CBC & Chem 7: 08/28/18 04:00 08/28/18 04:00 Assessment and Plan Assessment (1) Leg ulcer, left: Code(s): L97.929 - Non-pressure chronic ulcer of unspecified part of left lower leg with unspecified severity Status: Chronic (2) Cellulitis: Code(s): L03.90 - Cellulitis, unspecified Status: Acute (3) Hyperlipidemia: Code(s): E78.5 - Hyperlipidemia, unspecified Status: Chronic (4) HTN (hypertension): Code(s): I10 - Essential (primary) hypertension Status: Chronic (5) Diabetes mellitus: Code(s): E11.9 - Type 2 diabetes mellitus without complications Status: Chronic (6) CAD (coronary artery disease): Code(s): I25.10 - Atherosclerotic heart disease of [place] coronary artery without angina pectoris Status: Chronic Plan Nonhealing bilateral LE wounds (L worse than R) Severe PAD - Pt is a 72 y/o WF with HTN, Diabetes mellitus, CAD/Cardiomyopathy, hyperlipidemia, depression, Lumbar DDD/post-polio syndrome, aortic atherosclerosis, COPD/asthma and severe PAD. Per outpt records pt had a previous left open common femoral endarterectomy and ELHAM placement left common iliac to external iliac by Dr. Viv Meneses at [facility] on 05/21/18. Pt has had issues with wound healing which was not improved after this intervention. She has been receiving local wound care with [facility] wound care/Dr Best's office. She was seen at wound care office today and was recommended to report to the ED for further evaluation and antibiotics for two noted wounds, one on the right lateral leg and the other is a large LLE deep ulceration on the lateral aspect of the left lower leg with foul-smelling drainage and surrounding erythema. - WBC 8.9 (08/26), 10.7 (08/27) - Blood Cx (08/26) --> NGTD - Wound Gram stain (08/26) --> may gram negative rods. Many pleomorphic gram positive rods. - Wound Cx (08/26) --> MSSA - Vancomycin ( - 08/29) - Zosyn (08/26 - 08/29) - oxacillin (08/29 - present) - Appreciate input from Wound Care - Case d/w Dr. Frank (08/27). - Pt may require wound debridement in the OR - on 11/18/17 Pt underwent b/l LE revascularization procedure with Dr. Viv Meneses [facility] - nearly occlusive left common femoral artery, high-grade proximal external iliac artery stenosis, moderate left common iliac artery disease however NO high grade stenosis. - placement of left distal common iliac to external ilac 6x40 self expanding stent - right common iliac artery with high-grade stenosis at its origin patent external iliac stent with moderate instent stenosis moderate to severe right common femoral disease - Plavix - [place] increased to 10/325 Q4H PRN pain (home med) --> decrease back to 6h scheduled - re-do LEFT groin reconstruction and LLE angiogram with endovascular intervention with Dr. Mauricio on Saturday09/01/18 - DVT prophylaxis with Lovenox Diabetes mellitus - NovoLog SSI - Accu checks - Hold OHA - Pt may need Levemir but will monitor BS readings Cardiomyopathy, EF 35-40% on echo in 12/2017 - Cont. Lasix and KCl at home dose - monitor labs Depression - Cont. home meds COPD Asthma - Resume home meds - Duonebs PRN Progress Note: Quality VTE Deep Vein Thrombosis/Pulmonary Embolism Present on Admission: No _ (1) Leg ulcer, left Qualifiers: Non-pressure ulcer stage: (2) Cellulitis Qualifiers: Laterality: Site of cellulitis: Site of cellulitis of extremity: Site of cellulitis of trunk:
[2018-08-29] MEDS ORDERED: Pharmacy Ordered Lab Info OTHER ONE (17:45)
--- NOTE | 2018-08-29 19:15 | ECHRPT ---
EXAM DATE: 08/28/2018 11:59 AM EST AGE/SEX: 72 years / Female INDICATIONS: Peripheral artery disease CLINICAL DATA: This is the patient's initial encounter. Patient reports that signs and symptoms have been present for 1 month and indicates a pain score of 8/10. MEDICAL/SURGICAL HISTORY: . diabetes mellitus, peripheral artery disease . left lower extremit y stent COMPARISON: No prior exams available for comparison. TECHNIQUE: Four-cuff ankle and brachial pressures were obtained. Pulse cuff waveform tracings of the ankles were recorded, and ankle-brachial indices were calculated. PRESSURES (mmHg): Brachial (arm) : RIGHT: 174, LEFT: iv Ankle : RIGHT: 70, LEFT: 31 GWENDOLYN : RIGHT: 0.40, LEFT: 0.18 TBI : RIGHT: 0.21, LEFT: 0.00 FINDINGS: Pulsed-Cuff Waveform: Erratic waveforms on the right with significantly decreased waveforms on the l eft. Other: None. CONCLUSION: 1. Severely decreased ankle-brachial indices bilaterally also reflected on toe brachial indices. Fin dings are consistent with severe bilateral lower extremity arterial disease, left greater than right. Electronically signed by: Khoa Amaral MD Board Certified Radiologist 08/29/2018 7:14 PM RHIANNON Fragoso
[2018-08-30] MEDS: Enoxaparin Inj 30 MG/0.3 ML Syringe SQ SCH (08:51)
[2018-08-30] MEDS: Tolterodine Tartrate LA 4 MG Capsule PO SCH (08:51)
[2018-08-30] MEDS: Senna/Docusate Sodium 8.6/50 MG Tablet PO SCH ×2 (08:51→20:01)
[2018-08-30] MEDS: ARIPiprazole 2 MG Tablet PO SCH (08:52)
[2018-08-30] MEDS: Gabapentin 300 MG Capsule PO SCH ×2 (08:52→20:01)
[2018-08-30] MEDS: Furosemide 20 MG Tablet PO SCH (08:52)
[2018-08-30] MEDS: Nystatin 100,000 UNITS/GM Powder 15 GM Bottle TOPICAL SCH ×5 (08:53→20:02)
[2018-08-30] MEDS: Insulin NovoLOG Aspart Correctional Sugar Inj SQ SCH ×4 (08:53→20:02)
--- NOTE | 2018-08-30 09:34 | XR ---
EXAM DATE: 08/30/2018 9:25 AM EST AGE/SEX: 72 years / Female INDICATIONS: Abdominal pain and constipation; no bowel movement for 3 days. CLINICAL DATA: This is the patient's initial encounter. Patient reports that signs and symptoms have been present for 3 days and indicates a pain score of 3/10. MEDICAL/SURGICAL HISTORY: Congestive heart failure. Chronic obstructive pulmonary disease. Di abetes. Cholecystectomy. section. COMPARISON: No prior exams available for comparison. FINDINGS: Significantly dilated bowel is not seen. There is a mild amount stool in the colon. A large amount s tool is not seen in the colon. Vascular calcification are seen. Vascular stents are seen in the pelvi s. Degenerative change seen in the lumbar spine. There is a clip in the right upper quadrant presumab ly from prior cholecystectomy. The patient has surgical hardware in the left proximal femur presumabl y from prior fracture. CONCLUSION: Negative KUB. Electronically signed by: Anup Huggins MD Board Certified Radiologist 08/30/2018 9:33 AM EST
--- NOTE | 2018-08-30 15:05 | P.PNIM ---
Subjective Interval history: Pain is controlled. Pt has NO new clinical complaints. Physical Exam Vital signs: Last Vital Signs Temp 98.6 F 08/30/18 12:00 Pulse 96 H 08/30/18 12:00 Resp 18 08/30/18 12:00 BP 158/67 H 08/30/18 12:00 Pulse Ox 92 L 08/30/18 12:00 Narrative: GENERAL: NAD, AAOx3 SKIN: RLE shallow ulcer on the lateral leg and large LLE deep ulceration on the lateral aspect of the left lower leg with foul- smelling drainage and surrounding erythema HEENT: Atraumatic. Normocephalic. Pupils equal and round. No scleral icterus. No injection or drainage. No nasal bleeding or discharge. Mucous membranes pink and moist. NECK: Trachea midline. No JVD. CARDIOVASCULAR: Regular rate and rhythm. RESPIRATORY: No accessory muscle use. Clear to auscultation. Breath sounds equal bilaterally. GASTROINTESTINAL: Abdomen soft, non-tender, nondistended. Hepatic and splenic margins not palpable. MUSCULOSKELETAL: Bilateral pedal edema, left worse than right. NEUROLOGICAL: Awake and alert. No obvious cranial nerve deficits. Motor grossly within normal limits. Normal speech. PSYCHIATRIC: Appropriate mood and affect; insight and judgment normal. Results Labs CBC & Chem 7: 08/28/18 04:00 08/28/18 04:00 Assessment and Plan Assessment (1) Leg ulcer, left: Code(s): L97.929 - Non-pressure chronic ulcer of unspecified part of left lower leg with unspecified severity Status: Chronic (2) Cellulitis: Code(s): L03.90 - Cellulitis, unspecified Status: Acute (3) Hyperlipidemia: Code(s): E78.5 - Hyperlipidemia, unspecified Status: Chronic (4) HTN (hypertension): Code(s): I10 - Essential (primary) hypertension Status: Chronic (5) Diabetes mellitus: Code(s): E11.9 - Type 2 diabetes mellitus without complications Status: Chronic (6) CAD (coronary artery disease): Code(s): I25.10 - Atherosclerotic heart disease of [place] coronary artery without angina pectoris Status: Chronic Plan Nonhealing bilateral LE wounds (L worse than R) Severe PAD - Pt is a 72 y/o WF with HTN, Diabetes mellitus, CAD/Cardiomyopathy, hyperlipidemia, depression, Lumbar DDD/post-polio syndrome, aortic atherosclerosis, COPD/asthma and severe PAD. Per outpt records pt had a previous left open common femoral endarterectomy and ELHAM placement left common iliac to external iliac by Dr. Viv Meneses at [facility] on 05/21/18. Pt has had issues with wound healing which was not improved after this intervention. She has been receiving local wound care with [facility] wound care/Dr Best's office. She was seen at wound care office today and was recommended to report to the ED for further evaluation and antibiotics for two noted wounds, one on the right lateral leg and the other is a large LLE deep ulceration on the lateral aspect of the left lower leg with foul-smelling drainage and surrounding erythema. - WBC 8.9 (08/26), 10.7 (08/27), 9.3 (08/28) - Blood Cx (08/26) --> NGTD - Wound Gram stain (08/26) --> may gram negative rods. Many pleomorphic gram positive rods. - Wound Cx (08/26) --> MSSA - Vancomycin ( - 08/29) - Zosyn (08/26 - 08/29) - oxacillin (08/29 - present) - Appreciate input from Wound Care - Case d/w Dr. Frank (08/27). - Pt may require wound debridement in the OR - Case d/w Dr. Mauricio (08/30). - on 11/18/17 Pt underwent b/l LE revascularization procedure with Dr. Viv Meneses at -[facility] - nearly occlusive left common femoral artery, high-grade proximal external iliac artery stenosis, moderate left common iliac artery disease however NO high grade stenosis. - placement of left distal common iliac to external ilac 6x40 self expanding stent - right common iliac artery with high-grade stenosis at its origin patent external iliac stent with moderate instent stenosis moderate to severe right common femoral disease - Plavix - [place] increased to 10/325 Q4H PRN pain (home med) --> decrease back to 6h scheduled - re-do LEFT groin reconstruction and LLE angiogram with endovascular intervention with Dr. Mauricio on Saturday09/01/18 - DVT prophylaxis with Lovenox Diabetes mellitus - NovoLog SSI - Accu checks - Hold OHA - start levemir 5units PM & 10 units qAM Cardiomyopathy, EF 35-40% on echo in 12/2017 - Cont. Lasix and KCl at home dose - monitor labs Depression - Cont. home meds COPD Asthma - Resume home meds - Duonebs PRN Progress Note: Quality VTE Deep Vein Thrombosis/Pulmonary Embolism Present on Admission: No _ (1) Leg ulcer, left Qualifiers: Non-pressure ulcer stage: (2) Cellulitis Qualifiers: Laterality: Site of cellulitis: Site of cellulitis of extremity: Site of cellulitis of trunk:
[2018-08-30] MEDS: Insulin Detemir Inj 1,000 UNIT/10 ML Vial SQ SCH (20:01)
[2018-08-31] MEDS: Enoxaparin Inj 30 MG/0.3 ML Syringe SQ SCH (08:14)
[2018-08-31] MEDS: Senna/Docusate Sodium 8.6/50 MG Tablet PO SCH ×2 (08:15→23:33)
[2018-08-31] MEDS: ARIPiprazole 2 MG Tablet PO SCH (08:15)
[2018-08-31] MEDS: Tolterodine Tartrate LA 4 MG Capsule PO SCH (08:15)
[2018-08-31] MEDS: Gabapentin 300 MG Capsule PO SCH ×2 (08:15→23:27)
[2018-08-31] MEDS: Furosemide 20 MG Tablet PO SCH (08:16)
[2018-08-31] MEDS: Insulin Detemir Inj 1,000 UNIT/10 ML Vial SQ SCH ×2 (08:16→23:18)
[2018-08-31] MEDS: Insulin NovoLOG Aspart Correctional Sugar Inj SQ SCH ×4 (08:16→23:19)
[2018-08-31] MEDS: Nystatin 100,000 UNITS/GM Powder 15 GM Bottle TOPICAL SCH ×4 (08:17→23:28)
--- NOTE | 2018-08-31 15:09 | P.PNIM ---
Subjective Interval history: No new complaints. Physical Exam Vital signs: Last Vital Signs Temp 97.3 F L 08/31/18 08:00 Pulse 98 H 08/31/18 08:00 Resp 15 08/31/18 08:00 BP 163/65 H 08/31/18 08:00 Pulse Ox 93 L 08/31/18 13:11 Narrative: GENERAL: NAD, AAOx3 SKIN: RLE shallow ulcer on the lateral leg and large LLE deep ulceration on the lateral aspect of the left lower leg with foul- smelling drainage and surrounding erythema HEENT: Atraumatic. Normocephalic. Pupils equal and round. No scleral icterus. No injection or drainage. No nasal bleeding or discharge. Mucous membranes pink and moist. NECK: Trachea midline. No JVD. CARDIOVASCULAR: Regular rate and rhythm. RESPIRATORY: No accessory muscle use. Clear to auscultation. Breath sounds equal bilaterally. GASTROINTESTINAL: Abdomen soft, non-tender, nondistended. Hepatic and splenic margins not palpable. MUSCULOSKELETAL: Bilateral pedal edema, left worse than right. NEUROLOGICAL: Awake and alert. No obvious cranial nerve deficits. Motor grossly within normal limits. Normal speech. PSYCHIATRIC: Appropriate mood and affect; insight and judgment normal. Results Labs CBC & Chem 7: 09/01/18 06:15 09/01/18 06:15 Assessment and Plan Assessment (1) Leg ulcer, left: Code(s): L97.929 - Non-pressure chronic ulcer of unspecified part of left lower leg with unspecified severity Status: Chronic (2) Cellulitis: Code(s): L03.90 - Cellulitis, unspecified Status: Acute (3) Hyperlipidemia: Code(s): E78.5 - Hyperlipidemia, unspecified Status: Chronic (4) HTN (hypertension): Code(s): I10 - Essential (primary) hypertension Status: Chronic (5) Diabetes mellitus: Code(s): E11.9 - Type 2 diabetes mellitus without complications Status: Chronic (6) CAD (coronary artery disease): Code(s): I25.10 - Atherosclerotic heart disease of [place] coronary artery without angina pectoris Status: Chronic Plan Nonhealing bilateral LE wounds (L worse than R) Severe PAD - Pt is a 72 y/o WF with HTN, Diabetes mellitus, CAD/Cardiomyopathy, hyperlipidemia, depression, Lumbar DDD/post-polio syndrome, aortic atherosclerosis, COPD/asthma and severe PAD. Per outpt records pt had a previous left open common femoral endarterectomy and ELHAM placement left common iliac to external iliac by Dr. Viv Meneses at [facility] on 05/21/18. Pt has had issues with wound healing which was not improved after this intervention. She has been receiving local wound care with [facility] wound care/Dr Best's office. She was seen at wound care office today and was recommended to report to the ED for further evaluation and antibiotics for two noted wounds, one on the right lateral leg and the other is a large LLE deep ulceration on the lateral aspect of the left lower leg with foul-smelling drainage and surrounding erythema. - WBC 8.9 (08/26), 10.7 (08/27), 9.3 (08/28) - Blood Cx (08/26) --> NGTD - Wound Gram stain (08/26) --> may gram negative rods. Many pleomorphic gram positive rods. - Wound Cx (08/26) --> MSSA - Vancomycin ( - 08/29) - Zosyn (08/26 - 08/29) - oxacillin (08/29 - present) - Appreciate input from Wound Care - Case d/w Dr. Frank (08/27). - Pt may require wound debridement in the OR - Case d/w Dr. Mauricio (08/30). - on 11/18/17 Pt underwent b/l LE revascularization procedure with Dr. Viv Meneses at [facility] - nearly occlusive left common femoral artery, high-grade proximal external iliac artery stenosis, moderate left common iliac artery disease however NO high grade stenosis. - placement of left distal common iliac to external ilac 6x40 self expanding stent - right common iliac artery with high-grade stenosis at its origin patent external iliac stent with moderate instent stenosis moderate to severe right common femoral disease - Plavix - [place] increased to 10/325 Q4H PRN pain (home med) --> decrease back to 6h scheduled - re-do LEFT groin reconstruction and LLE angiogram with endovascular intervention with Dr. Mauricio on Saturday09/01/18 - DVT prophylaxis with Lovenox 08/31/18 - pt interviewed and examined - continue current treatment plan as outlined above HTN - start lisinopril 10mg BID Diabetes mellitus - NovoLog SSI - Accu checks - Hold OHA - start levemir 5units PM & 10 units qAM Cardiomyopathy, EF 35-40% on echo in 12/2017 - Cont. Lasix and KCl at home dose - monitor labs Depression - Cont. home meds COPD Asthma - Resume home meds - Duonebs PRN Progress Note: Quality VTE Deep Vein Thrombosis/Pulmonary Embolism Present on Admission: No _ (1) Leg ulcer, left Qualifiers: Non-pressure ulcer stage: (2) Cellulitis Qualifiers: Laterality: Site of cellulitis: Site of cellulitis of extremity: Site of cellulitis of trunk:
[2018-08-31] MEDS: Lisinopril 10 MG Tablet PO SCH ×2 (17:19→23:27)
--- NOTE | 2018-08-31 22:37 | P.PNPOD ---
Subjective Interval history: Patient seen at bedside this am. Nursing staff present. Spoke with on the phone while in the room. Physical Exam Vital signs: Vital Signs 08/31/18 00:00 08/31/18 08:00 08/31/18 12:00 Temperature 98.5 F 97.3 F L 97.6 F Pulse Rate 103 H 98 H 109 H Respiratory Rate 20 15 16 Blood Pressure 119/56 L 163/65 H 119/60 Pulse Oximetry 92 L 93 L 91 L 08/31/18 13:11 08/31/18 16:00 08/31/18 17:46 Temperature 97.8 F Pulse Rate 105 H Respiratory Rate 15 Blood Pressure 148/62 H Pulse Oximetry 93 L 93 L 93 L 08/31/18 20:00 Temperature 100.5 F H Pulse Rate 107 H Respiratory Rate 20 Blood Pressure 122/56 L Pulse Oximetry 93 L Intake & Output 08/31/18 08/31/18 09/01/18 06:59 18:59 06:59 Intake Total 200 / 200 220 / 220 100 / 100 Balance 200 / 200 220 / 220 100 / 100 Weight 62.9 kg Intake: IV 200 / 200 100 / 100 100 / 100 Prostaphlin Inj 1 GM In NS Inj 200 / 200 100 / 100 100 / 100 100 ML @ 200 mls/hr IV.SIG Q6H [facility] Rx#:[id number] Oral 120 / 120 Other: # Voids 1 # Incontinent Voids 1 # Urine Diapers 1 Date of Last Bowel Movement 08/27/18 Narrative: b/l LE with intact dressing and no strikethrough. NVS unchanged. Medications and Allergies Active Medications: Active Medications Acetaminophen (Tylenol) 650 mg PO Q4H PRN PRN Reason: Temp > 100.4 Hydrocodone Bitart/Acetaminophen ([place] 5/325) 1 tab PO Q8HR PRN PRN Reason: PAIN SCALE 1 TO 10 Al Hydroxide/Mg Hydroxide (Milk Of Magnesia Liq) 30 ml PO Q12H PRN PRN Reason: Mild Constipation Aripiprazole (Abilify) 2 mg PO DAILY [facility] Last Admin: 08/31/18 08:15 Dose: 2 mg Aspirin (Aspirin Chew) 81 mg PO DAILY [facility] Last Admin: 08/31/18 08:15 Dose: 81 mg Atorvastatin Calcium (Lipitor) 40 mg PO HS [facility] Last Admin: 08/30/18 20:01 Dose: 40 mg Clonidine HCl (Catapres) 0.1 mg PO Q6H PRN PRN Reason: SBP>180, DBP>110 Last Admin: 08/27/18 20:02 Dose: 0.1 mg Clopidogrel Bisulfate (Plavix) 75 mg PO DAILY [facility] Last Admin: 08/31/18 08:15 Dose: 75 mg Dextrose (D50w Vial) 50 ml IV.PUSH UNSCH PRN PRN Reason: PER HYPOGLYCEMIA PROTOCOL Enalaprilat (Vasotec Inj) 1.25 mg IV.PUSH Q6H PRN PRN Reason: SBP>180, DBP>110 Enoxaparin Sodium (Lovenox Inj) 30 mg SQ DAILY [facility] Last Admin: 08/31/18 08:14 Dose: 30 mg Furosemide (Lasix) 20 mg PO DAILY [facility] Last Admin: 08/31/18 08:16 Dose: 20 mg Gabapentin (Neurontin) 300 mg PO BID [facility] Last Admin: 08/31/18 08:15 Dose: 300 mg Glucagon (Glucagon Inj) 1 mg OTHER PRN PRN PRN Reason: for Hypoglycemia Protocol Oxacillin Sodium 1 gm/ Sodium (Chloride) 100 mls @ 200 mls/hr IV.SIG Q6H [facility] Last Infusion: 08/31/18 19:24 Dose: Infused Insulin Aspart (Novolog Insulin Correctional Sugar Inj) 0 unit SQ [facility]; Protocol Last Admin: 08/31/18 19:22 Dose: 3 unit Insulin Detemir (Levemir Inj) 5 unit SQ HS [facility] Last Admin: 08/30/18 20:01 Dose: 5 unit Insulin Detemir (Levemir Inj) 10 unit SQ DAILY [facility] Last Admin: 08/31/18 08:16 Dose: 10 unit Lisinopril (Prinivil) 10 mg PO BID [facility] Last Admin: 08/31/18 17:19 Dose: 10 mg Nystatin (Mycostatin Powder) 1 applicatio TOPICAL QID [facility] Last Admin: 08/31/18 19:23 Dose: Not Given Ondansetron HCl (Zofran Inj) 4 mg IV.PUSH Q6H PRN PRN Reason: NAUSEA OR VOMITING Pantoprazole Sodium (Protonix) 40 mg PO DAILY [facility] Last Admin: 08/31/18 08:15 Dose: 40 mg Patch Removal (Remove Old Patch) 1 each T-DERMAL Q3D [facility] Pt Own (Fluticasone- Salmeterol [Airduo Respiclick] 55/14 Mcg Inh 1 each INH BID [facility] Potassium Chloride (Klor-Con 10) 10 meq PO DAILY [facility] Last Admin: 08/31/18 08:15 Dose: 10 meq Senna/Docusate Sodium (Carissa-Colace) 1 tab PO BID [facility] Last Admin: 08/31/18 08:15 Dose: 1 tab Sodium Chloride (Ns Flush) 2 ml IV.FLUSH BID [facility] Last Admin: 08/31/18 08:17 Dose: 2 ml Sodium Chloride (Ns Flush) 2 ml IV.FLUSH PRN PRN PRN Reason: FLUSH AFTER USING IV ACCESS Tolterodine Tartrate (Detrol La) 4 mg PO DAILY [facility] Last Admin: 08/31/18 08:15 Dose: 4 mg Allergies Allergy/AdvReac Type Severity Reaction Status Date / Time morphine Allergy Severe Confusion Verified 08/27/18 06:47 Home Medications Medication Instructions Recorded Confirmed Type aripiprazole 2 mg PO DAILY 08/26/18 08/26/18 History aspirin 81 mg PO DAILY 08/26/18 08/26/18 History atorvastatin 40 mg PO QPM 08/26/18 08/26/18 History clopidogrel [Plavix] 75 mg PO DAILY 08/26/18 08/26/18 History fesoterodine [Toviaz] 8 mg PO DAILY 08/26/18 08/26/18 History fluticasone-salmeterol [AirDuo 1 puff INHALATION BID 08/26/18 08/26/18 History RespiClick] furosemide [Lasix] 20 mg PO DAILY 08/26/18 08/26/18 History gabapentin 300 mg PO BID 08/26/18 08/26/18 History glimepiride 2 mg PO QAM 08/26/18 08/26/18 History hydrocodone-acetaminophen [Sparkman] 1 tab PO Q6H PRN 08/26/18 08/26/18 History insulin detemir U-100 [Levemir 25 units SUBCUT BID 08/26/18 08/26/18 History FlexTouch U-100 Insuln] lansoprazole 30 mg PO DAILY 08/26/18 08/26/18 History metformin 500 mg PO BID 08/26/18 08/26/18 History mirabegron [Myrbetriq] 50 mg PO DAILY 08/26/18 08/26/18 History potassium chloride 10 meq PO DAILY 08/26/18 08/26/18 History Results - Labs CBC & Chem 7: 08/28/18 04:00 08/28/18 04:00 Laboratory Results - last 24 hr 08/31/18 08/31/18 08/31/18 08:11 10:57 11:22 POC Glucose 222 H 163 H Blood Type A Positive Blood Type Recheck Not needed Antibody Screen Negative 08/31/18 17:09 POC Glucose 216 H Blood Type Blood Type Recheck Antibody Screen Microbiology 08/26/18 15:00 Blood - Peripheral Aerobic Blood Culture - Final No growth in 5 days 08/26/18 15:00 Blood - Peripheral Anaerobic Blood Culture - Final No growth in 5 days 08/26/18 15:09 Blood - Peripheral Aerobic Blood Culture - Final No growth in 5 days 08/26/18 15:09 Blood - Peripheral Anaerobic Blood Culture - Final No growth in 5 days Assessment and Plan - Assessment (1) Cellulitis Code(s): L03.90 - Cellulitis, unspecified Status: Acute (2) Leg ulcer, left Code(s): L97.929 - Non-pressure chronic ulcer of unspecified part of left lower leg with unspecified severity Status: Chronic - Plan Pending vascular intervention 09/01/[address] Mauricio. Continue with daily wound care. Consider Plastic Surgery Consult for a flap. Dr Gordon begins coverage 09/01/18
[2018-09-01] MEDS ORDERED: Bupivacaine PF 0.5% Inj 10 ML Vial ONE (06:44)
[2018-09-01] MEDS ORDERED: ceFAZolin 1 GM Premix Inj 0 GM/0 ML PIGGYBACK IV.SIG ONE (06:44)
[2018-09-01] MEDS ORDERED: Protamine Sulfate Inj 50 MG/5 ML Vial ONE (06:44)
[2018-09-01] MEDS ORDERED: Heparin 10,000 UNITS/10 ML Vial (for IV use) ONE (06:44)
[2018-09-01] MEDS ORDERED: Heparin/NS PF Inj 500 ML ONE (06:45)
[2018-09-01] MEDS ORDERED: Thrombin Topical 20,000 UNIT Spray Kit TOPICAL ONE (06:45)
[2018-09-01 07:11] LABS: Baso % (Auto) 0.2 % (0.0-2.0); Eos # (Auto) 0.2 th/mm3 (0.0-0.4); Eos % (Auto) 1.6 % (0.0-4.0); Hematocrit 31.1 % (35.0-46.0); Hemoglobin 10.2 gm/dL (11.6-15.3); Lymph # (Auto) 1.5 th/mm3 (1.0-4.8); Lymph % (Auto) 11.8 % (9.0-44.0); Mean Corpuscular HGB Conc 32.7 % (32.0-36.0); Mean Corpuscular Hemoglobin 26.2 pg (27.0-34.0); Mono # (Auto) 1.1 th/mm3 (0.0-0.9); Mono % (Auto) 8.5 % (0.0-8.0); Neut # (Auto) 9.7 th/mm3 (1.8-7.7); Neut % (Auto) 77.9 % (16.0-70.0); Platelet Count 399 th/mm3 (150-450); Red Blood Count 3.89 mil/mm3 (4.00-5.30); Red Cell Distribution Width 15.4 % (11.6-17.2); White Blood Count 12.4 th/mm3 (4.0-11.0)
--- NOTE | 2018-09-01 07:37 | P.PNVS ---
- Pre-operative Note Planned Procedure: LEFT groin reconstruction, angiogram Interval History: Pt has been inpatient and no changes that would preclude OR Labs: WBC 12.4 th/mm3 (4.0-11.0) H 09/01/18 06:15 RBC 3.89 mil/mm3 (4.00-5.30) L 09/01/18 06:15 Hgb 10.2 gm/dL (11.6-15.3) L 09/01/18 06:15 Hct 31.1 % (35.0-46.0) L 09/01/18 06:15 MCV 80.0 fL (80.0-100.0) 09/01/18 06:15 MCH 26.2 pg (27.0-34.0) L 09/01/18 06:15 MCHC 32.7 % (32.0-36.0) 09/01/18 06:15 RDW 15.4 % (11.6-17.2) 09/01/18 06:15 Plt Count 399 th/mm3 (150-450) 09/01/18 06:15 MPV 9.0 fL (7.0-11.0) 09/01/18 06:15 Sodium 141 meq/L (136-145) 08/28/18 04:00 Potassium 3.3 meq/L (3.5-5.1) L 08/28/18 04:00 Chloride 105 meq/L (98-107) 08/28/18 04:00 Carbon Dioxide 28.7 meq/L (21.0-32.0) 08/28/18 04:00 Anion Gap 7 meq/L (5-15) 08/28/18 04:00 BUN 11 mg/dL (7-18) 08/28/18 04:00 Random Glucose 182 mg/dL (74-106) H 08/28/18 04:00 Calcium 8.1 mg/dL (8.5-10.1) L 08/28/18 04:00 Blood: T&C 2U PRBC Imaging: ITS Impressions Aorta w/Runoff CTA 08/27/18 00:00 CONCLUSION: 1. Extensive arteriosclerotic calcification with diffuse areas of mild luminal narrowing both inflow and outflow. There is one segment in the proximal left superficial femoral artery with greater than 70% narrowing. 2. Bilateral adrenal masses, stable from 2017. Extremity Arterial Study 08/27/18 00:00 CONCLUSION: 1. Severely decreased ankle-brachial indices bilaterally also reflected on toe brachial indices. Findings are consistent with severe bilateral lower extremity arterial disease, left greater than right. Abdomen X-Ray 08/30/18 06:00 CONCLUSION: Negative KUB. Orders: NPO Operative site marked: Yes Consent: Informed consent has been obtained from Luisa Trivedi. I have explained the procedure in detail and discussed the risks, benefits, and potential complications. All questions have been answered. Patient Contact Information:
[2018-09-01 07:43] LABS: Anion Gap 11 meq/L (5-15); Blood Urea Nitrogen 17 mg/dL (7-18); Calcium 8.7 mg/dL (8.5-10.1); Carbon Dioxide 25.8 meq/L (21.0-32.0); Chloride 105 meq/L (98-107); Glomerular Filtration Rate Greater Than 89 mL/min (>89); Glucose,Random 178 mg/dL (74-106); Sodium 142 meq/L (136-145)
[2018-09-01] MEDS ORDERED: Normosol-R pH 7.4 Inj 1,000 ML IV.CONT ONE (07:47)
[2018-09-01] MEDS ORDERED: Glycopyrrolate Inj 1 MG/5 ML Syringe IV.PUSH ONE (07:47)
[2018-09-01] MEDS ORDERED: Neostigmine Inj 5 MG/5 ML Syringe IV.PUSH ONE (07:47)
[2018-09-01] MEDS ORDERED: Lidocaine PF 1% Inj 5 ML Syringe OTHER ONE (07:47)
[2018-09-01] MEDS ORDERED: Labetalol HCl Inj 100 MG/20 ML Vial IV.CONT ONE (07:47)
[2018-09-01] MEDS ORDERED: Phenylephrine/NS 1000 MCG/10ML Syringe IV.PUSH ONE (07:47)
[2018-09-01 07:48] LABS: Potassium 2.9 meq/L (3.5-5.1)
--- NOTE | 2018-09-01 07:49 | P.PNPOD ---
Subjective Interval history: left leg wound Physical Exam Vital signs: Vital Signs 08/31/18 08:00 08/31/18 12:00 08/31/18 13:11 Temperature 97.3 F L 97.6 F Pulse Rate 98 H 109 H Respiratory Rate 15 16 Blood Pressure 163/65 H 119/60 Pulse Oximetry 93 L 91 L 93 L 08/31/18 16:00 08/31/18 17:46 08/31/18 20:00 Temperature 97.8 F 100.5 F H Pulse Rate 105 H 107 H Respiratory Rate 15 20 Blood Pressure 148/62 H 122/56 L Pulse Oximetry 93 L 93 L 95 09/01/18 00:00 09/01/18 03:50 Temperature 98.2 F 97.9 F Pulse Rate 113 H 103 H Respiratory Rate 18 18 Blood Pressure 158/64 H 137/63 Pulse Oximetry 95 94 L Intake & Output 08/31/18 09/01/18 09/01/18 18:59 06:59 18:59 Intake Total 220 / 220 300 / 300 Output Total 500 / 500 Balance 220 / 220 -200 / -200 Weight 62.9 kg 60.3 kg Intake: IV 100 / 100 300 / 300 Prostaphlin Inj 1 GM In NS Inj 100 / 100 300 / 300 100 ML @ 200 mls/hr IV.SIG Q6H [facility] Rx#:[id number] Oral 120 / 120 Output: Urine 500 / 500 Other: # Voids 1 # Incontinent Voids 1 # Urine Diapers 2 Date of Last Bowel Movement 08/27/18 Narrative: Left lower leg atropic, left lateral lower leg with large necrotic area and mottled skin surrounding the area. tenderness to palpation Medications and Allergies Active Medications: Active Medications Acetaminophen (Tylenol) 650 mg PO Q4H PRN PRN Reason: Temp > 100.4 Hydrocodone Bitart/Acetaminophen ([place] 5/325) 1 tab PO Q8HR PRN PRN Reason: PAIN SCALE 1 TO 10 Last Admin: 08/31/18 23:29 Dose: 1 tab Al Hydroxide/Mg Hydroxide (Milk Of Magnesia Liq) 30 ml PO Q12H PRN PRN Reason: Mild Constipation Aripiprazole (Abilify) 2 mg PO DAILY [facility] Last Admin: 08/31/18 08:15 Dose: 2 mg Aspirin (Aspirin Chew) 81 mg PO DAILY [facility] Last Admin: 08/31/18 08:15 Dose: 81 mg Atorvastatin Calcium (Lipitor) 40 mg PO HS [facility] Last Admin: 08/31/18 23:27 Dose: 40 mg Clonidine HCl (Catapres) 0.1 mg PO Q6H PRN PRN Reason: SBP>180, DBP>110 Last Admin: 08/27/18 20:02 Dose: 0.1 mg Clopidogrel Bisulfate (Plavix) 75 mg PO DAILY [facility] Last Admin: 08/31/18 08:15 Dose: 75 mg Dextrose (D50w Vial) 50 ml IV.PUSH UNSCH PRN PRN Reason: PER HYPOGLYCEMIA PROTOCOL Enalaprilat (Vasotec Inj) 1.25 mg IV.PUSH Q6H PRN PRN Reason: SBP>180, DBP>110 Enoxaparin Sodium (Lovenox Inj) 30 mg SQ DAILY [facility] Last Admin: 08/31/18 08:14 Dose: 30 mg Furosemide (Lasix) 20 mg PO DAILY [facility] Last Admin: 08/31/18 08:16 Dose: 20 mg Gabapentin (Neurontin) 300 mg PO BID [facility] Last Admin: 08/31/18 23:27 Dose: 300 mg Glucagon (Glucagon Inj) 1 mg OTHER PRN PRN PRN Reason: for Hypoglycemia Protocol Oxacillin Sodium 1 gm/ Sodium (Chloride) 100 mls @ 200 mls/hr IV.SIG Q6H [facility] Last Infusion: 09/01/18 06:08 Dose: Infused Insulin Aspart (Novolog Insulin Correctional Sugar Inj) 0 unit SQ [facility]; Protocol Last Admin: 08/31/18 23:19 Dose: 3 unit Insulin Detemir (Levemir Inj) 5 unit SQ [facility] Last Admin: 08/31/18 23:18 Dose: 5 unit Insulin Detemir (Levemir Inj) 10 unit SQ DAILY [facility] Last Admin: 08/31/18 08:16 Dose: 10 unit Lisinopril (Prinivil) 10 mg PO BID [facility] Last Admin: 08/31/18 23:27 Dose: 10 mg Nystatin (Mycostatin Powder) 1 applicatio TOPICAL QID [facility] Last Admin: 08/31/18 23:28 Dose: 1 applicatio Ondansetron HCl (Zofran Inj) 4 mg IV.PUSH Q6H PRN PRN Reason: NAUSEA OR VOMITING Pantoprazole Sodium (Protonix) 40 mg PO DAILY [facility] Last Admin: 12/23/18 08:15 Dose: 40 mg Patch Removal (Remove Old Patch) 1 each T-DERMAL Q3D [facility] Pt Own (Fluticasone- Salmeterol [Airduo Respiclick] 55/14 Mcg Inh 1 each INH BID [facility] Potassium Chloride (Klor-Con 10) 10 meq PO DAILY [facility] Last Admin: 08/31/18 08:15 Dose: 10 meq Senna/Docusate Sodium (Carissa-Colace) 1 tab PO BID [facility] Last Admin: 08/31/18 23:33 Dose: Not Given Sodium Chloride (Ns Flush) 2 ml IV.FLUSH BID [facility] Last Admin: 08/31/18 23:27 Dose: 2 ml Sodium Chloride (Ns Flush) 2 ml IV.FLUSH PRN PRN PRN Reason: FLUSH AFTER USING IV ACCESS Tolterodine Tartrate (Detrol La) 4 mg PO DAILY [facility] Last Admin: 08/31/18 08:15 Dose: 4 mg Allergies Allergy/AdvReac Type Severity Reaction Status Date / Time morphine Allergy Severe Confusion Verified 08/27/18 06:47 Home Medications Medication Instructions Recorded Confirmed Type aripiprazole 2 mg PO DAILY 08/26/18 08/26/18 History aspirin 81 mg PO DAILY 08/26/18 08/26/18 History atorvastatin 40 mg PO QPM 08/26/18 08/26/18 History clopidogrel [Plavix] 75 mg PO DAILY 08/26/18 08/26/18 History fesoterodine [Toviaz] 8 mg PO DAILY 08/26/18 08/26/18 History fluticasone-salmeterol [AirDuo 1 puff INHALATION BID 08/26/18 08/26/18 History RespiClick] furosemide [Lasix] 20 mg PO DAILY 08/26/18 08/26/18 History gabapentin 300 mg PO BID 08/26/18 08/26/18 History glimepiride 2 mg PO QAM 08/26/18 08/26/18 History hydrocodone-acetaminophen [[place]man] 1 tab PO Q6H PRN 08/26/18 08/26/18 History insulin detemir U-100 [Levemir 25 units SUBCUT BID 08/26/18 08/26/18 History FlexTouch U-100 Insuln] lansoprazole 30 mg PO DAILY 08/26/18 08/26/18 History metformin 500 mg PO BID 08/26/18 08/26/18 History mirabegron [Myrbetriq] 50 mg PO DAILY 08/26/18 08/26/18 History potassium chloride 10 meq PO DAILY 08/26/18 08/26/18 History Results - Labs CBC & Chem 7: 09/01/18 06:15 09/01/18 06:15 Laboratory Results - last 24 hr 08/31/18 08/31/18 08/31/18 08:11 10:57 11:22 WBC RBC Hgb Hct MCV MCH MCHC RDW Plt Count MPV Neut % (Auto) Lymph % (Auto) Scurry % (Auto) Eos % (Auto) Baso % (Auto) Neut # (Auto) Lymph # (Auto) [place] # (Auto) Eos # (Auto) Baso # (Auto) WBC Differential Differential Comment Sodium Potassium Chloride Carbon Dioxide Anion Gap BUN Creatinine Estimated GFR POC Glucose 222 H 163 H Random Glucose Calcium Blood Type A Positive Blood Type Recheck Not needed Antibody Screen Negative 08/31/18 08/31/18 09/01/18 17:09 23:04 06:07 WBC RBC Hgb Hct MCV MCH MCHC RDW Plt Count MPV Neut % (Auto) Lymph % (Auto) [place]urry % (Auto) Eos % (Auto) Baso % (Auto) Neut # (Auto) Lymph # (Auto) [place]urry # (Auto) Eos # (Auto) Baso # (Auto) WBC Differential Differential Comment Sodium Potassium Chloride Carbon Dioxide Anion Gap BUN Creatinine Estimated GFR POC Glucose 216 H 225 H 194 H Random Glucose Calcium Blood Type Blood Type Recheck Antibody Screen 09/01/18 09/01/18 06:15 06:15 WBC 12.4 H RBC 3.89 L Hgb 10.2 L Hct 31.1 L MCV 80.0 MCH 26.2 L MCHC 32.7 RDW 15.4 Plt Count 399 MPV 9.0 Neut % (Auto) 77.9 H Lymph % (Auto) 11.8 Scurry % (Auto) 8.5 H Eos % (Auto) 1.6 Baso % (Auto) 0.2 Neut # (Auto) 9.7 H Lymph # (Auto) 1.5 Scurry # (Auto) 1.1 H Eos # (Auto) 0.2 Baso # (Auto) 0.0 WBC Differential . Differential Comment Auto diff final Sodium 142 Potassium 2.9 L* Chloride 105 Carbon Dioxide 25.8 Anion Gap 11 BUN 17 Creatinine 0.61 Estimated GFR Greater than 89 POC Glucose Random Glucose 178 H Calcium 8.7 Blood Type Blood Type Recheck Antibody Screen Microbiology 08/26/18 15:00 Blood - Peripheral Aerobic Blood Culture - Final No growth in 5 days 08/26/18 15:00 Blood - Peripheral Anaerobic Blood Culture - Final No growth in 5 days 08/26/18 15:09 Blood - Peripheral Aerobic Blood Culture - Final No growth in 5 days 08/26/18 15:09 Blood - Peripheral Anaerobic Blood Culture - Final No growth in 5 days Assessment and Plan - Assessment (1) Cellulitis Code(s): L03.90 - Cellulitis, unspecified Status: Acute (2) Leg ulcer, left Code(s): L97.929 - Non-pressure chronic ulcer of unspecified part of left lower leg with unspecified severity Status: Chronic - Plan Continue with vascular surgery plan today. Due to wound size and location, I do feel that plastics consult and evaluation/ treatment is more appropriate than podiatry to treat what will be a very expansive wound on her left lower leg, and that I do anticipate significant continued tissue loss due to patient's externally rotated left lower extremity and pressure reduction issues in the future during treatment. She may need large areas grafted vs flap and plastics is better suited for these procedures on this patient.
[2018-09-01] MEDS ORDERED: Potassium Chlor 40 mEq Premix 40 MEQ/100 ML PIGGYBACK ONE (07:59)
[2018-09-01] MEDS: Insulin NovoLOG Aspart Correctional Sugar Inj SQ SCH ×4 (08:23→21:28)
[2018-09-01] MEDS: ARIPiprazole 2 MG Tablet PO SCH (09:24)
[2018-09-01] MEDS: Tolterodine Tartrate LA 4 MG Capsule PO SCH (09:25)
[2018-09-01] MEDS: Furosemide 20 MG Tablet PO SCH (09:27)
[2018-09-01] MEDS: Insulin Detemir Inj 1,000 UNIT/10 ML Vial SQ SCH ×2 (09:28→21:18)
[2018-09-01] MEDS: Enoxaparin Inj 30 MG/0.3 ML Syringe SQ SCH (09:28)
[2018-09-01] MEDS: Nystatin 100,000 UNITS/GM Powder 15 GM Bottle TOPICAL SCH ×4 (09:28→21:12)
[2018-09-01] MEDS: Senna/Docusate Sodium 8.6/50 MG Tablet PO SCH ×2 (09:29→21:11)
[2018-09-01] MEDS: Gabapentin 300 MG Capsule PO SCH ×2 (09:29→21:12)
[2018-09-01] MEDS: Lisinopril 10 MG Tablet PO SCH ×2 (09:30→21:11)
--- NOTE | 2018-09-01 10:09 | P.OP ---
- Preoperative Diagnosis (1) PAD (peripheral artery disease) - Postoperative Diagnosis (1) PAD (peripheral artery disease) Date of procedure: 09/01/18 Procedure: LEFT groin exploration Implants: none Anesthesia: GETA Surgeon: Rachid Mauricio MD Yield Clerk: Rachid Alvarez Estimated blood loss (mL): 100 IV fluids (mL): 1,100 Pathology: none sent Operation and Findings: intense PAD and scar tissue unreconstructable disease will need L AKA discussed with pt's and son
[2018-09-01] MEDS ORDERED: fentaNYL Citrate Inj 100 MCG/2 ML Ampul ONE ×2 (11:02)
--- NOTE | 2018-09-01 11:23 | MP ---
cc: Rachid Mauricio MD DATE OF OPERATION: 09/01/2018 PREOPERATIVE DIAGNOSIS: Peripheral arterial occlusive disease, left lower extremity, with ulceration of the lateral calf. POSTOPERATIVE DIAGNOSIS: Peripheral arterial disease, left lower extremity, with ulceration of the lateral calf. PROCEDURE PERFORMED: Left groin exploration without any vascular repair. ATTENDING SURGEON: Rachid Mauricio MD. BEAD FLIPPER: Rachid Alvarez ANESTHESIA: General. INDICATIONS: Ms. Trivedi is an elderly lady who has a left groin reconstruction done elsewhere. She was taken to the operating room for attempted repeat left groin reconstruction for left lateral leg tissue loss. Intraoperatively, she was found to have dense scar tissue and non-reconstructable arterial disease up to the external iliac artery. Due to the patient's severe comorbidities and overall debilitation, the decision was made not to perform a surgical inflow procedure, but to abort the procedure and offer an above-knee amputation. DESCRIPTION OF PROCEDURE: Informed consent was obtained from the patient and her . She was taken to the operating room and placed supine on the operating table. An appropriate timeout was taken to ensure the patient's identity, operative site, and planned procedure. The the administration of antibiotics not needed as the patient is on systemic therapeutic antibiotics and these will be continued postoperatively for ongoing therapy of her wounds. These antibiotics including gram-positive coverage. Everyone in the room agreed and we proceeded. She was prepped from her nipples to her toes. A vertical groin incision was made with a 10 blade and carried down through subcutaneous tissue with electrocautery. Dense scar tissue was encountered. The SFA, profunda, and common femoral artery patch were all encircled and dissected free. We then incised and divided the inguinal ligament, dissected up to the external iliac artery, but this was essentially a nonclampable artery with such a small and insignificant lumen that the decision was made to abort the procedure. The wound was irrigated and made hemostatic. AmnioFill and vancomycin powder were applied and the groin was closed in 4 layers with 2-0 Polysorb in 2 layers and 3-0 Polysorb and 4-0 Monocryl. The sponge and needle counts were correct at the end of the case. I was present, scrubbed, and performed the entire procedure. MD MARLEY Capone/gosia/kd , 10:13 AM , 10:20 AM MTDD
--- NOTE | 2018-09-01 11:34 | ECG ---
Date Performed: 09/01/2018 Time Performed: 07:01:18 PTAGE: 72 years EKG: SINUS TACHYCARDIA NONSPECIFIC T-WAVE ABNORMALITY ABNORMAL RHYTHM ECG PREVIOUS TRACING : 05/13/2017 11.47 Since the previous tracing, no significant change noted RBB B has resolved DOCTOR: Alex Collazo Interpretating Date/Time 09/01/2018 11:32:19
--- NOTE | 2018-09-01 11:58 | P.PNCC ---
Subjective 24 Hour Review/Hospital Course: 72-year-old female with severe peripheral vascular disease and no unreconstructable changes Patient now has distal ulcers of the left leg and clearly considering the reconstruction is not possible options become limited I agree with Dr. Mauricio completely this patient requires above-knee amputation is the only viable medical option at this time Thanks J Objective Vital Signs / I&O: Vital Signs 08/31/18 12:00 08/31/18 13:11 08/31/18 16:00 Temperature 97.6 F 97.8 F Pulse Rate 109 H 105 H Respiratory Rate 16 15 Blood Pressure 119/60 148/62 H Pulse Oximetry 91 L 93 L 93 L 08/31/18 17:46 08/31/18 20:00 09/01/18 00:00 Temperature 100.5 F H 98.2 F Pulse Rate 107 H 113 H Respiratory Rate 20 18 Blood Pressure 122/56 L 158/64 H Pulse Oximetry 93 L 95 95 09/01/18 03:50 09/01/18 10:36 Temperature 97.9 F 99 F Pulse Rate 103 H 86 Respiratory Rate 18 21 Blood Pressure 137/63 108/53 L Pulse Oximetry 94 L 95 Intake & Output 08/31/18 09/01/18 09/01/18 18:59 06:59 18:59 Intake Total 220 / 220 300 / 300 1200 / 1200 Output Total 500 / 500 250 / 250 Balance 220 / 220 -200 / -200 950 / 950 Weight 62.9 kg 60.3 kg Intake: IV 100 / 100 300 / 300 100 / 100 Heparin/NS PF Inj 500 ML @ 0 0 / 0 mls/hr .ROUTE [facility] Rx#: [id number] KCl 40 mEq Premix Inj 40 meq In 100 / 100 100 ml @ 0 mls/hr .ROUTE [facility] Rx#:[id number] Prostaphlin Inj 1 GM In NS Inj 100 / 100 300 / 300 100 ML @ 200 mls/hr IV.SIG Q6H [facility] Rx#:[id number] Oral 120 / 120 Anesthesia Amount 1100 / 1100 Output: Urine 500 / 500 Estimated Blood Loss 100 / 100 Urine Amount (Catheter) 150 / 150 Indwelling Urethral Catheter 150 / 150 Other: # Voids 1 # Incontinent Voids 1 # Urine Diapers 2 Date of Last Bowel Movement 08/27/18 Result Diagrams: 09/01/18 06:15 09/01/18 06:15
[2018-09-01] MEDS ORDERED: Potassium Chloride 10 MEQ ER Capsule PO ONE (18:00)
--- NOTE | 2018-09-01 18:13 | P.PNIM ---
Subjective Interval history: appears comfortable mostly confused son present Physical Exam Vital signs: Last Vital Signs Temp 98.1 F 09/01/18 15:10 Pulse 101 H 09/01/18 15:10 Resp 18 09/01/18 15:10 BP 161/69 H 09/01/18 15:10 Pulse Ox 96 09/01/18 17:21 Narrative: GENERAL: NAD, AAOx3 SKIN: RLE shallow ulcer on the lateral leg and large LLE deep ulceration on the lateral aspect of the left lower leg with foul- smelling drainage and surrounding erythema HEENT: Atraumatic. Normocephalic. Pupils equal and round. No scleral icterus. No injection or drainage. No nasal bleeding or discharge. Mucous membranes pink and moist. NECK: Trachea midline. No JVD. CARDIOVASCULAR: Regular rate and rhythm. RESPIRATORY: No accessory muscle use. Clear to auscultation. Breath sounds equal bilaterally. GASTROINTESTINAL: Abdomen soft, non-tender, nondistended. Hepatic and splenic margins not palpable. MUSCULOSKELETAL: Bilateral pedal edema, left worse than right. NEUROLOGICAL: Awake and alert. No obvious cranial nerve deficits. Motor grossly within normal limits. Normal speech. PSYCHIATRIC: Appropriate mood and affect; insight and judgment normal. BRIAN:. clear urine Results Labs CBC & Chem 7: 09/01/18 06:15 09/01/18 06:15 Assessment and Plan Assessment (1) Leg ulcer, left: Code(s): L97.929 - Non-pressure chronic ulcer of unspecified part of left lower leg with unspecified severity Status: Chronic (2) Cellulitis: Code(s): L03.90 - Cellulitis, unspecified Status: Acute (3) Hyperlipidemia: Code(s): E78.5 - Hyperlipidemia, unspecified Status: Chronic (4) HTN (hypertension): Code(s): I10 - Essential (primary) hypertension Status: Chronic (5) Diabetes mellitus: Code(s): E11.9 - Type 2 diabetes mellitus without complications Status: Chronic (6) CAD (coronary artery disease): Code(s): I25.10 - Atherosclerotic heart disease of [place] coronary artery without angina pectoris Status: Chronic Plan Nonhealing bilateral LE wounds (L worse than R) Severe PAD - Pt is a 72 y/o WF with HTN, Diabetes mellitus, CAD/Cardiomyopathy, hyperlipidemia, depression, Lumbar DDD/post-polio syndrome, aortic atherosclerosis, COPD/asthma and severe PAD. Per outpt records pt had a previous left open common femoral endarterectomy and ELHAM placement left common iliac to external iliac by Dr. Viv Meneses at [facility] on 05/21/18. Pt has had issues with wound healing which was not improved after this intervention. She has been receiving local wound care with [facility] wound care/Dr Best's office. She was seen at wound care office today and was recommended to report to the ED for further evaluation and antibiotics for two noted wounds, one on the right lateral leg and the other is a large LLE deep ulceration on the lateral aspect of the left lower leg with foul-smelling drainage and surrounding erythema. - WBC 8.9 (08/26), 10.7 (08/27), 9.3 (08/28) - Blood Cx (08/26) --> NGTD - Wound Gram stain (08/26) --> may gram negative rods. Many pleomorphic gram positive rods. - Wound Cx (08/26) --> MSSA - Vancomycin ( - 08/29) - Zosyn (08/26 - 08/29) - oxacillin (08/29 - present) - Appreciate input from Wound Care - Case d/w Dr. Frank (08/27). - Pt may require wound debridement in the OR - Case d/w Dr. Mauricio (08/30). - on 11/18/17 Pt underwent b/l LE revascularization procedure with Dr. Viv Meneses at [facility] - nearly occlusive left common femoral artery, high-grade proximal external iliac artery stenosis, moderate left common iliac artery disease however NO high grade stenosis. - placement of left distal common iliac to external ilac 6x40 self expanding stent - right common iliac artery with high-grade stenosis at its origin patent external iliac stent with moderate instent stenosis moderate to severe right common femoral disease - Plavix - [place] increased to 10/325 Q4H PRN pain (home med) --> decrease back to 6h scheduled - re-do LEFT groin reconstruction and LLE angiogram with endovascular intervention with Dr. Mauricio on Saturday09/01/18 - DVT prophylaxis with Lovenox Pt taken to OR. extensive scarring in right leg and not reconstuctable Pt/family to decide on surgery. Pt with some delirium at present and so will need to help with decision. When I ask her and explain she says "yes" to amputation if it is recommended by Vascular. Delirium pt likely has underlying cognitive deficits/mild dementia based on my discussion with family. apparent superimposed delirium likely MF. meds/infection/metabolic check u/a, ammonia, ct brain. cxr. noted fever last night. minimize narcotics HTN - start lisinopril 10mg BID Diabetes mellitus - NovoLog SSI - Accu checks - Hold OHA - start levemir 5units PM & 10 units qAM Cardiomyopathy, EF 35-40% on echo in 12/2017 - Cont. Lasix and KCl at home dose - monitor labs Depression - Cont. home meds COPD Asthma - Resume home meds - Duonebs PRN Progress Note: Quality VTE Deep Vein Thrombosis/Pulmonary Embolism Present on Admission: No _ (1) Leg ulcer, left Qualifiers: Non-pressure ulcer stage: (2) Cellulitis Qualifiers: Laterality: Site of cellulitis: Site of cellulitis of extremity: Site of cellulitis of trunk:
--- NOTE | 2018-09-01 18:56 | XR ---
EXAM DATE: 09/01/2018 6:32 PM EST AGE/SEX: 72 years / Female INDICATIONS: Fever CLINICAL DATA: This is the patient's subsequent encounter. Patient reports that signs and symptoms h ave been present for 4 - 6 days and indicates a pain score of Nonresponsive. MEDICAL/SURGICAL HISTORY: . Congestive heart failure. Chronic obstructive pulmonary disease. Di abetes. . Cholecystectomy. section. COMPARISON: [facility] [place], 05/15/2017. . FINDINGS: There is slight parenchymal opacity in the left lung base of undetermined chronicity. Appearance actu ally improved from the comparison exam. Right lung is grossly clear. Cardiac contours are satisfactor y. Mild central vascular congestion. CONCLUSION: Mild left base parenchymal opacity. Electronically signed by: Anup Dorado MD Board Certified Radiologist 09/01/2018 6:54 PM EST
[2018-09-01 19:12] LABS: Anion Gap 9 meq/L (5-15); Blood Urea Nitrogen 13 mg/dL (7-18); Calcium 8.3 mg/dL (8.5-10.1); Carbon Dioxide 27.7 meq/L (21.0-32.0); Chloride 104 meq/L (98-107); Glomerular Filtration Rate Greater Than 89 mL/min (>89); Glucose,Random 227 mg/dL (74-106); Potassium 3.6 meq/L (3.5-5.1); Sodium 141 meq/L (136-145)
--- NOTE | 2018-09-01 19:33 | CT ---
EXAM DATE: 09/01/2018 7:28 PM EST AGE/SEX: 72 years / Female INDICATIONS: Altered mental status. CLINICAL DATA: This is the patient's initial encounter. Patient reports that signs and symptoms have been present for 4 - 6 days and indicates a pain score of Nonresponsive. MEDICAL/SURGICAL HISTORY: Diabetes. Peripheral artery disease. None. RADIATION DOSE: 34.65 CTDI (mGy) COMPARISON: No prior exams available for comparison. TECHNIQUE: CT of the head without contrast. Using automated exposure control and adjustment of the mA and/or kV according to patient size, radiation dose was kept as low as reasonably achievable to ob tain optimal diagnostic quality images. DICOM format image data is available electronically for revi ew and comparison. FINDINGS: Cerebrum: Mild cerebral atrophy is noted. No evidence of midline shift, mass lesion, hemorrhage or a cute infarction. No extraaxial fluid collections are seen. Moderate periventricular and subcortical white matter small vessel ischemic changes are noted bilaterally. 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 Posterior Fossa: The cerebellum and brainstem are intact. The 4th ventricle is midline. The cerebe llopontine angle is unremarkable. Extracranial: The visualized portion of the orbits is intact. Skull: The calvaria is intact. No evidence of skull fracture. CONCLUSION: 1. No acute infarct, acute hemorrhage, midline shift or extra-axial fluid collections. 2. Moderate periventricular and subcortical white matter small vessel ischemic changes bilaterally. 3. Mild cerebral atrophy. 4. 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 . Electronically signed by: Rachid Rodriguez MD Board Certified Radiologist 09/01/2018 7:32 PM EST
[2018-09-01 21:01] LABS: Bacteria,Urine Occasional /hpf; Bilirubin,Urine Negative (Negative); Clarity,Urine Clear (Clear); Color,Urine Yellow (Yellw/Straw); Glucose,Urine (UA) 50 mg/dL (Negative); Leukocyte Esterase,Urine Trace (Negative); Nitrite,Urine Negative (Negative); Specific Gravity,Urine 1.018 (1.002-1.035); Squamous Epithelial Cell,Urine <1 /hpf (0-5)
[2018-09-01 21:05] LABS: Urobilinogen,Urine 0.2 mg/dL (Less than 2)
[2018-09-02 05:23] LABS: Baso % (Auto) 0.3 % (0.0-2.0); Eos # (Auto) 0.2 th/mm3 (0.0-0.4); Eos % (Auto) 1.2 % (0.0-4.0); Hematocrit 26.5 % (35.0-46.0); Hemoglobin 8.6 gm/dL (11.6-15.3); Lymph # (Auto) 1.4 th/mm3 (1.0-4.8); Lymph % (Auto) 10.3 % (9.0-44.0); Mean Corpuscular HGB Conc 32.5 % (32.0-36.0); Mean Corpuscular Hemoglobin 26.2 pg (27.0-34.0); Mean Corpuscular Volume 80.5 fL (80.0-100.0); Mean Platelet Volume 8.9 fL (7.0-11.0); Mono # (Auto) 1.3 th/mm3 (0.0-0.9); Mono % (Auto) 9.5 % (0.0-8.0); Neut # (Auto) 11.1 th/mm3 (1.8-7.7); Neut % (Auto) 78.7 % (16.0-70.0); Platelet Count 406 th/mm3 (150-450); Red Blood Count 3.29 mil/mm3 (4.00-5.30); Red Cell Distribution Width 15.3 % (11.6-17.2)
[2018-09-02 05:47] LABS: Anion Gap 8 meq/L (5-15); Blood Urea Nitrogen 10 mg/dL (7-18); Calcium 8.2 mg/dL (8.5-10.1); Chloride 106 meq/L (98-107); Glomerular Filtration Rate Greater Than 89 mL/min (>89); Glucose,Random 129 mg/dL (74-106); Potassium 3.8 meq/L (3.5-5.1); Sodium 141 meq/L (136-145)
[2018-09-02] MEDS: Tolterodine Tartrate LA 4 MG Capsule PO SCH (08:16)
[2018-09-02] MEDS: Enoxaparin Inj 30 MG/0.3 ML Syringe SQ SCH (08:16)
[2018-09-02] MEDS: Lisinopril 10 MG Tablet PO SCH ×2 (08:16→20:28)
[2018-09-02] MEDS: Senna/Docusate Sodium 8.6/50 MG Tablet PO SCH ×2 (08:16→20:28)
[2018-09-02] MEDS: Gabapentin 300 MG Capsule PO SCH ×2 (08:17→20:28)
[2018-09-02] MEDS: Furosemide 20 MG Tablet PO SCH (08:17)
[2018-09-02] MEDS: ARIPiprazole 2 MG Tablet PO SCH (08:17)
[2018-09-02] MEDS: Insulin Detemir Inj 1,000 UNIT/10 ML Vial SQ SCH ×2 (08:21→20:31)
[2018-09-02] MEDS: Nystatin 100,000 UNITS/GM Powder 15 GM Bottle TOPICAL SCH ×4 (08:22→20:34)
[2018-09-02] MEDS: Insulin NovoLOG Aspart Correctional Sugar Inj SQ SCH ×4 (08:22→20:34)
--- NOTE | 2018-09-02 10:14 | P.PNVS ---
Subjective Post Op Day #: 1 Procedure: L groin exploration Subjective/Hospital Course: pt confused this morning continues to complain of overall body aches didn't recognize me this morning no focal deficits though. Objective Vital Signs / I&O: Vital Signs 09/01/18 10:36 09/01/18 10:45 09/01/18 11:00 Temperature 99 F Pulse Rate 86 82 86 Respiratory Rate 21 20 20 Blood Pressure 108/53 L 108/53 L Pulse Oximetry 95 93 L 95 09/01/18 11:15 09/01/18 11:30 09/01/18 11:45 Temperature 98.5 F Pulse Rate 89 86 94 H Respiratory Rate 22 20 24 Blood Pressure 112/67 126/58 L Pulse Oximetry 94 L 95 93 L 09/01/18 11:51 09/01/18 12:56 09/01/18 15:10 Temperature 99.2 F 98.1 F Pulse Rate 94 H 101 H 101 H Respiratory Rate 19 18 18 Blood Pressure 115/55 L 164/70 H 161/69 H Pulse Oximetry 94 L 98 97 09/01/18 17:21 09/01/18 20:00 09/01/18 21:59 Temperature 98.7 F Pulse Rate 100 H Respiratory Rate 20 18 Blood Pressure 142/65 H Pulse Oximetry 96 97 09/02/18 00:00 09/02/18 04:00 09/02/18 08:00 Temperature 97.9 F 98.2 F 99.9 F H Pulse Rate 90 106 H 105 H Respiratory Rate 18 20 18 Blood Pressure 138/65 169/70 H 121/59 L Pulse Oximetry 99 96 95 Intake & Output 09/01/18 09/02/18 09/02/18 18:59 06:59 18:59 Intake Total 1200 / 1200 300 / 300 Output Total 625 / 625 600 / 600 Balance 575 / 575 -300 / -300 Weight 62 kg Intake: IV 100 / 100 300 / 300 Heparin/NS PF Inj 500 ML @ 0 0 / 0 mls/hr .ROUTE .STK-MED ONE Rx#: [id number] KCl 40 mEq Premix Inj 40 meq In 100 / 100 100 ml @ 0 mls/hr .ROUTE .STK- MED ONE Rx#:[id number] Prostaphlin Inj 1 GM In NS Inj 300 / 300 100 ML @ 200 mls/hr IV.SIG Q6H ELYSIA Rx#:[id number] Anesthesia Amount 1100 / 1100 Output: Urine 600 / 600 Estimated Blood Loss 100 / 100 Urine Amount (Catheter) 525 / 525 Indwelling Urethral Catheter 525 / 525 Exam: disheveled female, no apparent distress not oriented to situation [place] L groin Prevena in place L LE ulcers stable Laboratory Results - last 24 hr 09/01/18 09/01/18 09/01/18 10:47 18:35 18:35 WBC RBC Hgb Hct MCV MCH MCHC RDW Plt Count MPV Neut % (Auto) Lymph % (Auto) [place] % (Auto) Eos % (Auto) Baso % (Auto) Neut # (Auto) Lymph # (Auto) [place] # (Auto) Eos # (Auto) Baso # (Auto) WBC Differential Differential Comment Sodium Potassium Chloride Carbon Dioxide Anion Gap BUN Creatinine Estimated GFR POC Glucose 210 H Random Glucose Calcium Magnesium 1.6 Ammonia 33 H Urine Color Urine Clarity Urine pH Ur Specific [place] Urine Protein Urine Glucose (UA) Urine Ketones Urine Occult Blood Urine Nitrate Urine Bilirubin Urine Urobilinogen Ur Leukocyte Esterase Urine RBC Urine WBC Ur Squamous Epith Cells Urine Bacteria Micro UA Comment Ur Microscopic Review Urine Culture Comments 09/01/18 09/01/18 09/01/18 18:35 18:45 18:52 WBC RBC Hgb Hct MCV MCH MCHC RDW Plt Count MPV Neut % (Auto) Lymph % (Auto) [place] % (Auto) Eos % (Auto) Baso % (Auto) Neut # (Auto) Lymph # (Auto) [place] # (Auto) Eos # (Auto) Baso # (Auto) WBC Differential Differential Comment Sodium 141 Potassium 3.6 Chloride 104 Carbon Dioxide 27.7 Anion Gap 9 BUN 13 Creatinine 0.63 Estimated GFR Greater than 89 POC Glucose 272 H Random Glucose 227 H Calcium 8.3 L Magnesium Ammonia Urine Color Yellow Urine Clarity Clear Urine pH 6.0 Ur Specific [place] 1.018 Urine Protein 30 H Urine Glucose (UA) 50 Urine Ketones Negative Urine Occult Blood Negative Urine Nitrate Negative Urine Bilirubin Negative Urine Urobilinogen 0.2 Ur Leukocyte Esterase Trace H Urine RBC Less than 1 Urine WBC 7 H Ur Squamous Epith Cells <1 Urine Bacteria Occasional H Micro UA Comment Cath-culture ind Ur Microscopic Review Not Reportable Urine Culture Comments Cath-cult indicated 09/01/18 09/02/18 09/02/18 21:15 04:26 04:26 WBC 14.0 H RBC 3.29 L Hgb 8.6 L Hct 26.5 L MCV 80.5 MCH 26.2 L MCHC 32.5 RDW 15.3 Plt Count 406 MPV 8.9 Neut % (Auto) 78.7 H Lymph % (Auto) 10.3 [place] % (Auto) 9.5 H Eos % (Auto) 1.2 Baso % (Auto) 0.3 Neut # (Auto) 11.1 H Lymph # (Auto) 1.4 [place] # (Auto) 1.3 H Eos # (Auto) 0.2 Baso # (Auto) 0.0 WBC Differential . Differential Comment Auto diff final Sodium 141 Potassium 3.8 Chloride 106 Carbon Dioxide 27.0 Anion Gap 8 BUN 10 Creatinine 0.54 Estimated GFR Greater than 89 POC Glucose 254 H Random Glucose 129 H Calcium 8.2 L Magnesium Ammonia Urine Color Urine Clarity Urine pH Ur Specific [place] Urine Protein Urine Glucose (UA) Urine Ketones Urine Occult Blood Urine Nitrate Urine Bilirubin Urine Urobilinogen Ur Leukocyte Esterase Urine RBC Urine WBC Ur Squamous Epith Cells Urine Bacteria Micro UA Comment Ur Microscopic Review Urine Culture Comments 09/02/18 07:37 WBC RBC Hgb Hct MCV MCH MCHC RDW Plt Count MPV Neut % (Auto) Lymph % (Auto) [place] % (Auto) Eos % (Auto) Baso % (Auto) Neut # (Auto) Lymph # (Auto) [place] # (Auto) Eos # (Auto) Baso # (Auto) WBC Differential Differential Comment Sodium Potassium Chloride Carbon Dioxide Anion Gap BUN Creatinine Estimated GFR POC Glucose 190 H Random Glucose Calcium Magnesium Ammonia Urine Color Urine Clarity Urine pH Ur Specific [place] Urine Protein Urine Glucose (UA) Urine Ketones Urine Occult Blood Urine Nitrate Urine Bilirubin Urine Urobilinogen Ur Leukocyte Esterase Urine RBC Urine WBC Ur Squamous Epith Cells Urine Bacteria Micro UA Comment Ur Microscopic Review Urine Culture Comments Assessment and Plan - Assessment (1) PAD (peripheral artery disease) Code(s): I73.9 - Peripheral vascular disease, unspecified Status: Acute (2) Leg ulcer, left Code(s): L97.929 - Non-pressure chronic ulcer of unspecified part of left lower leg with unspecified severity Status: Chronic - Plan POD#1 s/p L groin exploration Due to complexity of repair, extent of disease and concomitant lower likelihood of durable success at improving perfusion and most importantly, her overall rehabilitation condition, I think the best option is a LEFT AKA. I discussed this with the and her son yesterday. I appreciate Dr. Crooks's opinion. Will offer LEFT AKA when patient and family ready. Obviously needs continued nutritional support and PT.
[2018-09-02] MEDS: Piperacil/Tazo 3.375 GM Premix 3.375 GM/50 ML PIGGYBACK IV.SIG SCH ×3 (10:45→23:30)
--- NOTE | 2018-09-02 13:12 | P.PNIM ---
Subjective Interval history: Pt still confused but less today. was able to recall my conversation about the amputation from yesterday. her family is present. Physical Exam Vital signs: Last Vital Signs Temp 99.0 F 09/02/18 12:00 Pulse 100 H 09/02/18 12:00 Resp 17 09/02/18 12:00 BP 130/76 09/02/18 12:00 Pulse Ox 92 L 09/02/18 12:00 Narrative: SKIN: RLE shallow ulcer on the lateral leg and large LLE deep ulceration on the lateral aspect of the left lower leg with foul- smelling drainage and surrounding erythema heart reg lung course bs abds s/nt/bs Results Labs CBC & Chem 7: 09/02/18 04:26 09/02/18 04:26 Assessment and Plan Assessment (1) Leg ulcer, left: Code(s): L97.929 - Non-pressure chronic ulcer of unspecified part of left lower leg with unspecified severity Status: Chronic (2) Cellulitis: Code(s): L03.90 - Cellulitis, unspecified Status: Acute (3) Hyperlipidemia: Code(s): E78.5 - Hyperlipidemia, unspecified Status: Chronic (4) HTN (hypertension): Code(s): I10 - Essential (primary) hypertension Status: Chronic (5) Diabetes mellitus: Code(s): E11.9 - Type 2 diabetes mellitus without complications Status: Chronic (6) CAD (coronary artery disease): Code(s): I25.10 - Atherosclerotic heart disease of [place] coronary artery without angina pectoris Status: Chronic Plan Nonhealing bilateral LE wounds (L worse than R) Severe PAD - Pt is a 72 y/o WF with HTN, Diabetes mellitus, CAD/Cardiomyopathy, hyperlipidemia, depression, Lumbar DDD/post-polio syndrome, aortic atherosclerosis, COPD/asthma and severe PAD. Per outpt records pt had a previous left open common femoral endarterectomy and ELHAM placement left common iliac to external iliac by Dr. Viv Meneses at [facility] on 05/21/18. Pt has had issues with wound healing which was not improved after this intervention. She has been receiving local wound care with [facility] wound care/Dr Best's office. She was seen at wound care office today and was recommended to report to the ED for further evaluation and antibiotics for two noted wounds, one on the right lateral leg and the other is a large LLE deep ulceration on the lateral aspect of the left lower leg with foul-smelling drainage and surrounding erythema. - WBC 8.9 (08/26), 10.7 (08/27), 9.3 (08/28) - Blood Cx (08/26) --> NGTD - Wound Gram stain (08/26) --> may gram negative rods. Many pleomorphic gram positive rods. - Wound Cx (08/26) --> MSSA - Vancomycin ( - 08/29) - Zosyn (08/26 - 08/29) - oxacillin (08/29 - present) - Appreciate input from Wound Care - Case d/w Dr. Frank (08/27). - Pt may require wound debridement in the OR - Case d/w Dr. Mauricio (08/30). - on 11/18/17 Pt underwent b/l LE revascularization procedure with Dr. Viv Meneses at [facility] - nearly occlusive left common femoral artery, high-grade proximal external iliac artery stenosis, moderate left common iliac artery disease however NO high grade stenosis. - placement of left distal common iliac to external ilac 6x40 self expanding stent - right common iliac artery with high-grade stenosis at its origin patent external iliac stent with moderate instent stenosis moderate to severe right common femoral disease - Plavix - Gervais increased to 10/325 Q4H PRN pain (home med) --> decrease back to 6h scheduled - re-do LEFT groin reconstruction and LLE angiogram with endovascular intervention with Dr. Mauricio on Saturday09/01/18 - DVT prophylaxis with Lovenox Pt taken to OR. extensive scarring in left leg and not reconstructable Pt/family to decide on surgery. They want face/face meeting first with Dr Mauricio. Pt with some delirium at present and so will need to help with decision. abx adjusted today. Delirium pt likely has underlying cognitive deficits/mild dementia based on my discussion with family. apparent superimposed delirium likely MF. meds/infection/metabolic ct brain. 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 no acute cva urine cx pending. meds/abx adjusted. HTN - start lisinopril 10mg BID Diabetes mellitus - NovoLog SSI - Accu checks - Hold OHA - start levemir 5units PM & 10 units qAM Cardiomyopathy, EF 35-40% on echo in 12/2017 - Cont. Lasix and KCl at home dose - monitor labs Depression - Cont. home meds COPD Asthma - Resume home meds - Duonebs PRN Progress Note: Quality VTE Deep Vein Thrombosis/Pulmonary Embolism Present on Admission: No _ (1) Leg ulcer, left Qualifiers: Non-pressure ulcer stage: (2) Cellulitis Qualifiers: Laterality: Site of cellulitis: Site of cellulitis of extremity: Site of cellulitis of trunk:
[2018-09-02] MEDS: Acetaminophen 325 MG Tablet PO PRN (16:50)
[2018-09-03] MEDS: Piperacil/Tazo 3.375 GM Premix 3.375 GM/50 ML PIGGYBACK IV.SIG SCH ×4 (04:58→23:41)
[2018-09-03 05:00] LABS: Baso % (Auto) 0.2 % (0.0-2.0); Eos # (Auto) 0.1 th/mm3 (0.0-0.4); Lymph # (Auto) 1.5 th/mm3 (1.0-4.8); Lymph % (Auto) 11.1 % (9.0-44.0); Mean Corpuscular HGB Conc 32.1 % (32.0-36.0); Mono # (Auto) 1.2 th/mm3 (0.0-0.9); Mono % (Auto) 9.2 % (0.0-8.0); Neut # (Auto) 10.7 th/mm3 (1.8-7.7); Neut % (Auto) 78.5 % (16.0-70.0); Platelet Count 371 th/mm3 (150-450); Red Blood Count 3.45 mil/mm3 (4.00-5.30); Red Cell Distribution Width 15.2 % (11.6-17.2); White Blood Count 13.6 th/mm3 (4.0-11.0)
[2018-09-03 05:29] LABS: Alanine Aminotransferase 10 U/L (10-53); Anion Gap 7 meq/L (5-15); Aspartate Aminotransferase 8 U/L (15-37); Blood Urea Nitrogen 12 mg/dL (7-18); Calcium 8.4 mg/dL (8.5-10.1); Carbon Dioxide 27.9 meq/L (21.0-32.0); Chloride 106 meq/L (98-107); Glomerular Filtration Rate Greater Than 89 mL/min (>89); Glucose,Random 135 mg/dL (74-106); Potassium 3.3 meq/L (3.5-5.1); Sodium 141 meq/L (136-145)
[2018-09-03 05:32] LABS: Alkaline Phosphatase 112 U/L (45-117); Total Protein 7.1 g/dL (6.4-8.2)
--- NOTE | 2018-09-03 07:53 | P.PNIM ---
Subjective Interval history: Pt somewhat more lucid this morning, still with some confusion but recalls talking with the physician yesterday and the discussion about left AKA. She had a large BM this morning Pt still not eating well but wanting to drink fluids this morning. Mendoza catheter is out and pt is urinating without difficulty. No fever since 09/02 at 1800 Physical Exam Vital signs: Last Vital Signs Temp 98.7 F 09/03/18 00:00 Pulse 101 H 09/03/18 00:00 Resp 18 09/03/18 00:00 BP 144/64 H 09/03/18 00:00 Pulse Ox 93 L 09/03/18 00:00 Narrative: SKIN: RLE shallow ulcer on the lateral leg and large LLE deep ulceration on the lateral aspect of the left lower leg with foul- smelling drainage and surrounding erythema. Left great toe is black. heart reg lung course bs abd: s/nt/bs Results Labs CBC & Chem 7: 09/05/18 04:25 09/06/18 06:27 Imaging Aorta w/Runoff CTA 08/27/18 00:00 CONCLUSION: 1. Extensive arteriosclerotic calcification with diffuse areas of mild luminal narrowing both inflow and outflow. There is one segment in the proximal left superficial femoral artery with greater than 70% narrowing. 2. Bilateral adrenal masses, stable from 2017. Extremity Arterial Study 08/27/18 00:00 CONCLUSION: 1. Severely decreased ankle-brachial indices bilaterally also reflected on toe brachial indices. Findings are consistent with severe bilateral lower extremity arterial disease, left greater than right. Abdomen X-Ray 08/30/18 06:00 CONCLUSION: Negative KUB. Chest X-Ray 09/01/18 00:00 CONCLUSION: Mild left base parenchymal opacity. Head CT 09/01/18 00:00 CONCLUSION: 1. No acute infarct, acute hemorrhage, midline shift or extra-axial fluid collections. 2. Moderate periventricular and subcortical white matter small vessel ischemic changes bilaterally. 3. Mild cerebral atrophy. 4. 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 . Assessment and Plan Assessment (1) Leg ulcer, left: Code(s): L97.929 - Non-pressure chronic ulcer of unspecified part of left lower leg with unspecified severity Status: Chronic (2) Cellulitis: Code(s): L03.90 - Cellulitis, unspecified Status: Acute (3) Hyperlipidemia: Code(s): E78.5 - Hyperlipidemia, unspecified Status: Chronic (4) HTN (hypertension): Code(s): I10 - Essential (primary) hypertension Status: Chronic (5) Diabetes mellitus: Code(s): E11.9 - Type 2 diabetes mellitus without complications Status: Chronic (6) CAD (coronary artery disease): Code(s): I25.10 - Atherosclerotic heart disease of [place] coronary artery without angina pectoris Status: Chronic Plan Nonhealing bilateral LE wounds (L worse than R) Severe PAD - Pt is a 72 y/o WF with HTN, Diabetes mellitus, CAD/Cardiomyopathy, hyperlipidemia, depression, Lumbar DDD/post-polio syndrome, aortic atherosclerosis, COPD/asthma and severe PAD. Per outpt records pt had a previous left open common femoral endarterectomy and ELHAM placement left common iliac to external iliac by Dr. Viv Meneses at [facility] on 05/21/18. Pt has had issues with wound healing which was not improved after this intervention. She has been receiving local wound care with [facility] wound care/Dr Best's office. She was seen at wound care office today and was recommended to report to the ED for further evaluation and antibiotics for two noted wounds, one on the right lateral leg and the other is a large LLE deep ulceration on the lateral aspect of the left lower leg with foul-smelling drainage and surrounding erythema. - WBC 8.9 (08/26), 10.7 (08/27), 9.3 (08/28) - Blood Cx (08/26) --> NGTD - Wound Gram stain (08/26) --> may gram negative rods. Many pleomorphic gram positive rods. - Wound Cx (08/26) --> MSSA - Vancomycin ( - 08/29) - Zosyn (08/26 - 08/29) - oxacillin (08/29 - 09/02) - Appreciate input from Wound Care - Case d/w Dr. Frank (08/27). - Pt may require wound debridement in the OR - Case d/w Dr. Mauricio (08/30). - on 11/18/17 Pt underwent b/l LE revascularization procedure with Dr. Viv Meneses at [facility] - nearly occlusive left common femoral artery, high-grade proximal external iliac artery stenosis, moderate left common iliac artery disease however NO high grade stenosis. - placement of left distal common iliac to external ilac 6x40 self expanding stent - right common iliac artery with high-grade stenosis at its origin patent external iliac stent with moderate instent stenosis moderate to severe right common femoral disease - Plavix - Lyons increased to 10/325 Q4H PRN pain (home med) --> decrease back to 6h scheduled - Pt hd been planned for re-do LEFT groin reconstruction and LLE angiogram with endovascular intervention with Dr. Mauricio on Saturday09/01/18. She was taken to the OR but the scarring was extensive in the left leg and not reconstructable. - Pt/family to decide on LEFT AKA. They want face/face meeting first with Dr Mauricio. - Pt with some delirium at present and so will need to help with decision. - Cont. Zosyn. - DVT prophylaxis with Lovenox Delirium - Pt likely has underlying cognitive deficits/mild dementia based on my discussion with family. - Apparent superimposed delirium likely MF. 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 no acute cva - Urine cx with no growth in 24 hours. - meds/abx adjusted. HTN - Lisinopril 10mg BID Diabetes mellitus - NovoLog SSI - Accu checks - Hold OHA - Levemir 5units PM & 10 units qAM Cardiomyopathy, EF 35-40% on echo in 12/2017 - Cont. Lasix and KCl at home dose - monitor labs Depression - Cont. home meds COPD Asthma - Resume home meds - Duonebs PRN Attending Attestation Patient examined. Assessment and plan formulated with Rebecca Hurt PA-C. I agree with the above. updated family. they looked at her wound and seemed more convinced about the amputation. But and son still prefer to discuss any type of procedure for salvage of leg. pt more oriented today. abx were changed to zosyn yesterday.. has some chest congestion today. Progress Note: Quality VTE Deep Vein Thrombosis/Pulmonary Embolism Present on Admission: No _ (1) Leg ulcer, left Qualifiers: Non-pressure ulcer stage: (2) Cellulitis Qualifiers: Laterality: Site of cellulitis: Site of cellulitis of extremity: Site of cellulitis of trunk:
[2018-09-03] MEDS: Insulin NovoLOG Aspart Correctional Sugar Inj SQ SCH ×4 (09:00→22:37)
[2018-09-03] MEDS: Lisinopril 10 MG Tablet PO SCH ×2 (09:01→22:38)
[2018-09-03] MEDS: Gabapentin 300 MG Capsule PO SCH ×2 (09:02→22:38)
[2018-09-03] MEDS: Tolterodine Tartrate LA 4 MG Capsule PO SCH (09:02)
[2018-09-03] MEDS: Enoxaparin Inj 30 MG/0.3 ML Syringe SQ SCH (09:02)
[2018-09-03] MEDS: Furosemide 20 MG Tablet PO SCH (09:02)
[2018-09-03] MEDS: ARIPiprazole 2 MG Tablet PO SCH (09:02)
[2018-09-03] MEDS: Insulin Detemir Inj 1,000 UNIT/10 ML Vial SQ SCH ×2 (09:03→22:38)
[2018-09-03] MEDS: Nystatin 100,000 UNITS/GM Powder 15 GM Bottle TOPICAL SCH ×4 (09:03→22:39)
[2018-09-03] MEDS: Senna/Docusate Sodium 8.6/50 MG Tablet PO SCH ×2 (09:05→22:39)
[2018-09-03] MEDS: Acetaminophen 325 MG Tablet PO PRN (10:56)
--- NOTE | 2018-09-03 11:24 | P.CONPAL ---
Consult Service: Palliative Care Requesting Physician: Rebecca Hurt Reason for Consult: a. To assist with evaluation and management of symptoms including: Pain, confusion, physical deconditioning b. To assist medical decision maker(s) with: better understanding of current medical conditions; weighing benefits/burdens of medical treatment options; making medical treatment decisions. Primary Care Provider: Guru Irving MD, PhD History of Present Illness History of Present Illness: Ms Trivedi is a 72 years old female with a past medical history significant for peripheral arterial disease, diabetes mellitus, chronic lower extremity wounds, hypertension, coronary artery disease/cardiomyopathy, hyperlipidemia, depression, lumbar DDD/post polio syndrome, aortic artherosclerosis, COPD/ asthma and is a smoker. Patient presented to the emergency room on 08/26/18 for evaluation of wounds to his lower extremities. Patient had stenting to her left leg approximately 3 months ago and shortly after she developed a wound to the left leg which has progressively worsened. Patient has a wound care nurse who sees her 3 times per week at home. ER course: * Vital signs: Temperature 98.3F, pulse 102, respirations 20, BP 180/74, O2 saturation 98% * Laboratory workup revealed WBC 8.9, hemoglobin 11.2, hematocrit 35.0, platelet count 428, sodium 138, potassium 3.7, BUN/creatinine 15/0.67, random glucose 171, AST 17, ALT 20, total protein 8.9, albumin 3.4 * Patient admitted for further evaluation and treatment under [facility] hospitalists Wound culture collected on 08/26/18 positive for Staphylococcus aureus. ECG arterial seg Doppler GWENDOLYN on 08/27/18, revealed severely decreased ankle brachial indices bilaterally also reflected on 12 brachial indices findings consistent with severe bilateral lower extremity arterial disease, left greater than right. CTA run of on 08/27/18 revealed extensive arteriosclerotic calcification with diffuse area of mild luminal narrowing both inflow and outflow. There is one significant in the proximal left superficial femoral artery with 80% narrowing. Bilateral adrenal mass is stable from 2017. Wound care consulted on 08/27/18 for evaluation and management bilateral lower extremity wounds left worse than right, recommended consulting podiatry for left lower extremity. Vascular surgeon Dr. Mauricio consulted on 08/27/18 for evaluation and management of a patient with peripheral arterial disease and left leg wound, recommended CTA A/P to toes, ABIs and physical therapy. Podiatry Dr. Frank consulted on 08/27/18 for evaluation and management of a patient with bilateral lower extremity wounds. Account Underwriter also felt that wound to left leg is probably a mixture of ischemic ulcer and pressure ulcer and debridement may cause a deeper wound that he is possibly no chance of healing without adequate circulation. On 08/28/18 vascular surgeon discussed need for redo left groin reconstruction and left lower extremity angiogram with endovascular intervention with patient and his spouse. 09/01/18 patient developed altered mental status. Head CT on 09/01/18 revealed no acute infarct , or hemorrhage. Moderate periventricular and subcortical white matter small vessel ischemic changes bilaterally. 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 Urine culture collected on 09/01 is showing no growth in 48 hours. On 09/01/18 patient underwent left groin exploration with no vascular repair. Procedure revealed intense PAD and scar tissue with unreconstructable disease. Vascular surgeon recommending left above-knee amputation. Laboratory workup today 09/03/18 revealing WBC 13.6, hemoglobin 9.0, hematocrit 28.0, platelet count 371. Palliative care consulted to assist with symptom management and establishment of goals of medical treatment. Patient seen and examined in the room in the presence of her ,Zach Trivedi and had 2 adult sons. Patient is awake, alert, oriented to self, place and situation. Patient stating that she is not feeling very good today because she has received bad news. She may need to have her leg amputated. Introduced palliative care and its role in symptom management and establishment of goals of medical treatment. Patient's family not very receptive to palliative care. Family states that they have requested home health care and assistance with finding available resources to help patient after she has had an amputation, rehabilitation and then transferred home. Their concern is that patient`s will not be able to take care of patient after amputation and rehabilitation. Family states that they have spoken to all physicians and have a good understanding of patient's medical condition at this time. Family states that they have reached an agreement of proceeding with left lower extremity above-knee amputation as recommended by vascular surgeon. They still wants to speak to vascular surgeon. Their main concern now is patient's care after discharge from rehabilitation. They do not want patient to reside in a penitentiary facility. They would like patient to go back home preferably with home health care after rehabilitation. Attempted to address complications that patient may face in future and family is not too keen to discuss that. Briefly broached hospice topic and patient's spouse stated that they are not anywhere close to thinking about hospice. Patient has never completed advanced directives. She is and her spouse would serve as her healthcare proxy decision-maker according to [place] statute, in the event that she is incapacitated. Informed family that case management will assist with discharge planning. Case discussed with bedside RN, Dr. Rodriguez and Rebecca Hurt . Function/Cognitive Trajectory: Patient resides at home with her spouse. She ambulated with a walker prior to this hospitalization. Review of Systems Constitutional: Reports fatigue, Reports lack of energy, Denies fever(s), Denies weight loss Eyes: Denies blurry vision, Denies bulging eyes Ears, Nose, Mouth, and Throat: Reports abnormal hearing (Hard of hearing-he has bilateral hearing aids), Reports other (Missing teeth), Denies difficulty swallowing, Denies nasal discharge, Denies tongue swelling Cardiovascular: Reports foot swelling, Reports leg sores, Reports leg swelling ( Left lower extremity), Denies chest pain, Denies fainting, Denies shortness of breath Respiratory: Reports shortness of breath, Denies chest congestion, Denies cough Gastrointestinal: Reports change in stools, Reports loose stools, Denies nausea , Denies vomiting Genitourinary: Denies abnormal vaginal bleeding, Denies blood in urine, Denies urinary incontinence Musculoskeletal: Reports back pain, Reports body aches, Reports decreased muscle mass, Reports deformity, Reports limited joint movement (Left lower extremity) Skin/Breast: Reports skin ulcer, Reports sores, Reports unusual bruising, Reports wounds (Bilateral lower extremities, left worse than right) Neurologic: Reports abnormal hearing (Hard of hearing-uses hearing aids), Reports confusion, Reports frequent falls Psychiatric: Reports anxiety, Reports confusion, Denies change in appetite Endocrine: Denies increased urination Hematologic/Lymphatic: Reports easy bruising PMFSH - History History Provided By: Family Member, Medical Record - Medical History Medical History: Medical History (Last Reviewed 08/27/18 @ 14:29 by Rachid Mauricio MD) Diabetes PAD (peripheral artery disease) - Surgical History Surgical History: Surgical History (Last Updated 09/03/18 @ 11:35 by Tracy Wilkinson) Status post insertion of iliac artery stent (Acute) H/O cardiac catheterization History of History of cholecystectomy Hx of colonoscopy Hx of esophagogastroduodenoscopy - Family History Family History: Family History (Last Updated 09/03/18 @ 11:33 by Tracy Wilkinson) Mother Heart disease Father Alcoholism Heart disease - Social History I have reviewed the patient's Social History: Yes - Tobacco History Second Hand Smoke Exposure: Yes Tobacco Use In Past 30 Days: Yes Smoking Status: Current every day smoker Tobacco Type: Cigarettes - Alcohol History How Often Do You Have a Drink Containing Alcohol: Never - Substance Use History Substance History: No History of Abuse - Travel History Recent Travel in the [place] Within the Last 8 Weeks: No Recent Travel Out of the Country Within the Last 8 Weeks: No - Immunization History Tetanus Immunization: Unsure Hx Influenza Vaccine This Season: No Medications and Allergies Active Medications: Active Medications Acetaminophen (Tylenol) 650 mg PO Q4H PRN PRN Reason: Temp > 100.4 Last Admin: 09/02/18 16:50 Dose: 650 mg Hydrocodone Bitart/Acetaminophen ([place] 5/325) 1 tab PO Q8HR PRN PRN Reason: PAIN SCALE 1 TO 10 Last Admin: 09/03/18 04:58 Dose: 1 tab Al Hydroxide/Mg Hydroxide (Milk Of Magnrosamaria Liq) 30 ml PO Q12H PRN PRN Reason: Mild Constipation Aripiprazole (Abilify) 2 mg PO DAILY [facility] Last Admin: 09/03/18 09:02 Dose: 2 mg Aspirin (Aspirin Chew) 81 mg PO DAILY [facility] Last Admin: 09/03/18 09:01 Dose: 81 mg Atorvastatin Calcium (Lipitor) 40 mg PO HS [facility] Last Admin: 09/02/18 20:28 Dose: 40 mg Clonidine HCl (Catapres) 0.1 mg PO Q6H PRN PRN Reason: SBP>180, DBP>110 Last Admin: 08/27/18 20:02 Dose: 0.1 mg Clopidogrel Bisulfate (Plavix) 75 mg PO DAILY [facility] Last Admin: 09/03/18 09:02 Dose: 75 mg Dextrose (D50w Vial) 50 ml IV.PUSH UNSCH PRN PRN Reason: PER HYPOGLYCEMIA PROTOCOL Enalaprilat (Vasotec Inj) 1.25 mg IV.PUSH Q6H PRN PRN Reason: SBP>180, DBP>110 Enoxaparin Sodium (Lovenox Inj) 30 mg SQ DAILY [facility] Last Admin: 09/03/18 09:02 Dose: 30 mg Furosemide (Lasix) 20 mg PO DAILY [facility] Last Admin: 09/03/18 09:02 Dose: 20 mg Gabapentin (Neurontin) 300 mg PO BID [facility] Last Admin: 09/03/18 09:02 Dose: 300 mg Glucagon (Glucagon Inj) 1 mg OTHER PRN PRN PRN Reason: for Hypoglycemia Protocol Potassium Chloride/Sodium Chloride (Ns + Kcl 20 Meq Inj) 1,000 mls @ 60 mls/hr IV.CONT .[id number] [facility] Last Admin: 09/03/18 07:02 Dose: 60 mls/hr Piperacillin/Tazobactam/Dextrose (Zosyn 3.375 Gm Premix) 3.375 gm in 50 mls @ 100 mls/hr IV.SIG Q6H [facility] Last Infusion: 09/03/18 06:07 Dose: Infused Insulin Aspart (Novolog Insulin Correctional Sugar Inj) 0 unit SQ ACHS [facility]; Protocol Last Admin: 09/03/18 09:00 Dose: 3 unit Insulin Detemir (Levemir Inj) 5 unit SQ HS [facility] Last Admin: 09/02/18 20:31 Dose: 5 unit Insulin Detemir (Levemir Inj) 10 unit SQ DAILY [facility] Last Admin: 09/03/18 09:03 Dose: 10 unit Lisinopril (Prinivil) 10 mg PO BID [facility] Last Admin: 09/03/18 09:01 Dose: 10 mg Nystatin (Mycostatin Powder) 1 applicatio TOPICAL QID [facility] Last Admin: 09/03/18 09:03 Dose: 1 applicatio Ondansetron HCl (Zofran Inj) 4 mg IV.PUSH Q6H PRN PRN Reason: NAUSEA OR VOMITING Pantoprazole Sodium (Protonix) 40 mg PO DAILY [facility] Last Admin: 09/03/18 09:02 Dose: 40 mg Pt Own (Fluticasone- Salmeterol [Airduo Respiclick] 55/14 Mcg Inh 1 each INH BID [facility] Potassium Chloride (Klor-Con 10) 10 meq PO DAILY [facility] Last Admin: 09/03/18 09:02 Dose: 10 meq Senna/Docusate Sodium (Carissa-Colace) 1 tab PO BID [facility] Last Admin: 09/03/18 09:05 Dose: Not Given Sodium Chloride (Ns Flush) 2 ml IV.FLUSH BID [facility] Last Admin: 09/03/18 09:04 Dose: 2 ml Sodium Chloride (Ns Flush) 2 ml IV.FLUSH PRN PRN PRN Reason: FLUSH AFTER USING IV ACCESS Tolterodine Tartrate (Detrol La) 4 mg PO DAILY [facility] Last Admin: 09/03/18 09:02 Dose: 4 mg Allergies Allergy/AdvReac Type Severity Reaction Status Date / Time morphine Allergy Severe Confusion Verified 08/27/18 06:47 Home Medications Medication Instructions Recorded Confirmed Type aripiprazole 2 mg PO DAILY 08/26/18 08/26/18 History aspirin 81 mg PO DAILY 08/26/18 08/26/18 History atorvastatin 40 mg PO QPM 08/26/18 08/26/18 History clopidogrel [Plavix] 75 mg PO DAILY 08/26/18 08/26/18 History fesoterodine [Toviaz] 8 mg PO DAILY 08/26/18 08/26/18 History fluticasone-salmeterol [AirDuo 1 puff INHALATION BID 08/26/18 08/26/18 History RespiClick] furosemide [Lasix] 20 mg PO DAILY 08/26/18 08/26/18 History gabapentin 300 mg PO BID 08/26/18 08/26/18 History glimepiride 2 mg PO QAM 08/26/18 08/26/18 History hydrocodone-acetaminophen [[place]] 1 tab PO Q6H PRN 08/26/18 08/26/18 History insulin detemir U-100 [Levemir 25 units SUBCUT BID 08/26/18 08/26/18 History FlexTouch U-100 Insuln] lansoprazole 30 mg PO DAILY 08/26/18 08/26/18 History metformin 500 mg PO BID 08/26/18 08/26/18 History mirabegron [Myrbetriq] 50 mg PO DAILY 08/26/18 08/26/18 History potassium chloride 10 meq PO DAILY 08/26/18 08/26/18 History Advance Directives Living Will: No Healthcare Surrogate: No Power of 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 . Family/friends goals: Family would like to proceed with left above-knee amputation. . Ethical and Legal Issues: None identified at this time. . Physical Exam Vital Signs: Vital Signs - 24 hr 09/02/18 12:00 09/02/18 16:00 09/02/18 17:30 Temperature 99.0 F 101.5 F H 100.5 F H Pulse Rate 100 H 112 H Respiratory Rate 17 17 Blood Pressure 130/76 135/57 L Pulse Oximetry 92 L 96 09/02/18 18:17 09/02/18 20:00 09/03/18 00:00 Temperature 99.9 F H 97.3 F L 98.7 F Pulse Rate 98 H 101 H Respiratory Rate 18 18 Blood Pressure 142/63 H 144/64 H Pulse Oximetry 91 L 93 L 09/03/18 08:00 09/03/18 08:41 Temperature 97.9 F Pulse Rate 93 H Respiratory Rate 18 Blood Pressure 157/66 H Pulse Oximetry 95 93 L I&O: Intake & Output 09/01/18 09/02/18 09/03/18 09/04/18 06:59 06:59 06:59 06:59 Intake Total 520 / 520 1500 / 1500 2300 / 2300 Output Total 500 / 500 1225 / 1225 300 / 300 Balance 20 / 20 275 / 275 1999 / 1999 Weight 60.3 kg 62 kg 60.8 kg Physical Exam: CONSTITUTIONAL/GENERAL: This is an adequately nourished patient, in no apparent distress. TUBES/LINES/DRAINS: SKIN: No jaundice, rashes. Ecchymoses on upper extremities. Ulcer to right lower extremity. Large left lower extremity deep ulceration with foul-smelling drainage and surrounding erythema. HEAD: Atraumatic. Normocephalic. EYES: Pupils equal and round and reactive. Extraocular motions intact. No scleral icterus. No injection or drainage. Fundi not examined. ENT: Hearing grossly normal. Nose without bleeding or purulent drainage. Moist oral mucosa. NECK: Trachea midline. Supple, nontender. CARDIOVASCULAR: Regular rate and rhythm without murmurs, gallops, or rubs. No JVD. Peripheral pulses symmetric. RESPIRATORY/CHEST: Symmetric, unlabored respirations. Clear to auscultation. Breath sounds equal bilaterally. No wheezes, rales, or rhonchi. GASTROINTESTINAL: Abdomen soft, non-tender, nondistended. No guarding. Bowel sounds present. GENITOURINARY: Without palpable bladder distension. MUSCULOSKELETAL: Extremities without clubbing, cyanosis, or edema. No calf tenderness. No mottling or clubbing. LYMPHATICS: Did not assess NEUROLOGICAL: Awake and alert, oriented to self, place and situation. Motor and sensory grossly within normal limits. Moves all extremities to simple commands. PSYCHIATRIC: No obvious anxiety/depression. no apparent hallucinations or other psychotic thought process. Diagnostic Tests Laboratory: Laboratory Results - last 72 hr 08/31/18 08/31/18 08/31/18 10:57 11:22 17:09 WBC RBC Hgb Hct MCV MCH MCHC RDW Plt Count MPV Neut % (Auto) Lymph % (Auto) [place] % (Auto) Eos % (Auto) Baso % (Auto) Neut # (Auto) Lymph # (Auto) [place] # (Auto) Eos # (Auto) Baso # (Auto) WBC Differential Differential Comment Sodium Potassium Chloride Carbon Dioxide Anion Gap BUN Creatinine Estimated GFR POC Glucose 163 H 216 H Random Glucose Calcium Magnesium Total Bilirubin Direct Bilirubin Indirect Bilirubin AST ALT Alkaline Phosphatase Ammonia Total Protein Albumin Urine Color Urine Clarity Urine pH Ur Specific [place] Urine Protein Urine Glucose (UA) Urine Ketones Urine Occult Blood Urine Nitrate Urine Bilirubin Urine Urobilinogen Ur Leukocyte Esterase Urine RBC Urine WBC Ur Squamous Epith Cells Urine Bacteria Micro UA Comment Ur Microscopic Review Urine Culture Comments Blood Type A Positive Blood Type Recheck Not needed Antibody Screen Negative 08/31/18 09/01/18 09/01/18 23:04 06:07 06:15 WBC 12.4 H RBC 3.89 L Hgb 10.2 L Hct 31.1 L MCV 80.0 MCH 26.2 L MCHC 32.7 RDW 15.4 Plt Count 399 MPV 9.0 Neut % (Auto) 77.9 H Lymph % (Auto) 11.8 [place] % (Auto) 8.5 H Eos % (Auto) 1.6 Baso % (Auto) 0.2 Neut # (Auto) 9.7 H Lymph # (Auto) 1.5 [place] # (Auto) 1.1 H Eos # (Auto) 0.2 Baso # (Auto) 0.0 WBC Differential . Differential Comment Auto diff final Sodium Potassium Chloride Carbon Dioxide Anion Gap BUN Creatinine Estimated GFR POC Glucose 225 H 194 H Random Glucose Calcium Magnesium Total Bilirubin Direct Bilirubin Indirect Bilirubin AST ALT Alkaline Phosphatase Ammonia Total Protein Albumin Urine Color Urine Clarity Urine pH Ur Specific [place] Urine Protein Urine Glucose (UA) Urine Ketones Urine Occult Blood Urine Nitrate Urine Bilirubin Urine Urobilinogen Ur Leukocyte Esterase Urine RBC Urine WBC Ur Squamous Epith Cells Urine Bacteria Micro UA Comment Ur Microscopic Review Urine Culture Comments Blood Type Blood Type Recheck Antibody Screen 09/01/18 09/01/18 09/01/18 06:15 10:47 18:35 WBC RBC Hgb Hct MCV MCH MCHC RDW Plt Count MPV Neut % (Auto) Lymph % (Auto) [place] % (Auto) Eos % (Auto) Baso % (Auto) Neut # (Auto) Lymph # (Auto) [place] # (Auto) Eos # (Auto) Baso # (Auto) WBC Differential Differential Comment Sodium 142 Potassium 2.9 L* Chloride 105 Carbon Dioxide 25.8 Anion Gap 11 BUN 17 Creatinine 0.61 Estimated GFR Greater than 89 POC Glucose 210 H Random Glucose 178 H Calcium 8.7 Magnesium 1.6 Total Bilirubin Direct Bilirubin Indirect Bilirubin AST ALT Alkaline Phosphatase Ammonia Total Protein Albumin Urine Color Urine Clarity Urine pH Ur Specific [place] Urine Protein Urine Glucose (UA) Urine Ketones Urine Occult Blood Urine Nitrate Urine Bilirubin Urine Urobilinogen Ur Leukocyte Esterase Urine RBC Urine WBC Ur Squamous Epith Cells Urine Bacteria Micro UA Comment Ur Microscopic Review Urine Culture Comments Blood Type Blood Type Recheck Antibody Screen 09/01/18 09/01/18 09/01/18 18:35 18:35 18:45 WBC RBC Hgb Hct MCV MCH MCHC RDW Plt Count MPV Neut % (Auto) Lymph % (Auto) [place] % (Auto) Eos % (Auto) Baso % (Auto) Neut # (Auto) Lymph # (Auto) [place] # (Auto) Eos # (Auto) Baso # (Auto) WBC Differential Differential Comment Sodium 141 Potassium 3.6 Chloride 104 Carbon Dioxide 27.7 Anion Gap 9 BUN 13 Creatinine 0.63 Estimated GFR Greater than 89 POC Glucose Random Glucose 227 H Calcium 8.3 L Magnesium Total Bilirubin Direct Bilirubin Indirect Bilirubin AST ALT Alkaline Phosphatase Ammonia 33 H Total Protein Albumin Urine Color Yellow Urine Clarity Clear Urine pH 6.0 Ur Specific [place] 1.018 Urine Protein 30 H Urine Glucose (UA) 50 Urine Ketones Negative Urine Occult Blood Negative Urine Nitrate Negative Urine Bilirubin Negative Urine Urobilinogen 0.2 Ur Leukocyte Esterase Trace H Urine RBC Less than 1 Urine WBC 7 H Ur Squamous Epith Cells <1 Urine Bacteria Occasional H Micro UA Comment Cath-culture ind Ur Microscopic Review Not Reportable Urine Culture Comments Cath-cult indicated Blood Type Blood Type Recheck Antibody Screen 09/01/18 09/01/18 09/02/18 18:52 21:15 04:26 WBC 14.0 H RBC 3.29 L Hgb 8.6 L Hct 26.5 L MCV 80.5 MCH 26.2 L MCHC 32.5 RDW 15.3 Plt Count 406 MPV 8.9 Neut % (Auto) 78.7 H Lymph % (Auto) 10.3 [place] % (Auto) 9.5 H Eos % (Auto) 1.2 Baso % (Auto) 0.3 Neut # (Auto) 11.1 H Lymph # (Auto) 1.4 [place] # (Auto) 1.3 H Eos # (Auto) 0.2 Baso # (Auto) 0.0 WBC Differential . Differential Comment Auto diff final Sodium Potassium Chloride Carbon Dioxide Anion Gap BUN Creatinine Estimated GFR POC Glucose 272 H 254 H Random Glucose Calcium Magnesium Total Bilirubin Direct Bilirubin Indirect Bilirubin AST ALT Alkaline Phosphatase Ammonia Total Protein Albumin Urine Color Urine Clarity Urine pH Ur Specific [place] Urine Protein Urine Glucose (UA) Urine Ketones Urine Occult Blood Urine Nitrate Urine Bilirubin Urine Urobilinogen Ur Leukocyte Esterase Urine RBC Urine WBC Ur Squamous Epith Cells Urine Bacteria Micro UA Comment Ur Microscopic Review Urine Culture Comments Blood Type Blood Type Recheck Antibody Screen 09/02/18 09/02/18 09/02/18 04:26 07:37 11:35 WBC RBC Hgb Hct MCV MCH MCHC RDW Plt Count MPV Neut % (Auto) Lymph % (Auto) [place] % (Auto) Eos % (Auto) Baso % (Auto) Neut # (Auto) Lymph # (Auto) [place] # (Auto) Eos # (Auto) Baso # (Auto) WBC Differential Differential Comment Sodium 141 Potassium 3.8 Chloride 106 Carbon Dioxide 27.0 Anion Gap 8 BUN 10 Creatinine 0.54 Estimated GFR Greater than 89 POC Glucose 190 H 173 H Random Glucose 129 H Calcium 8.2 L Magnesium Total Bilirubin Direct Bilirubin Indirect Bilirubin AST ALT Alkaline Phosphatase Ammonia Total Protein Albumin Urine Color Urine Clarity Urine pH Ur Specific [place] Urine Protein Urine Glucose (UA) Urine Ketones Urine Occult Blood Urine Nitrate Urine Bilirubin Urine Urobilinogen Ur Leukocyte Esterase Urine RBC Urine WBC Ur Squamous Epith Cells Urine Bacteria Micro UA Comment Ur Microscopic Review Urine Culture Comments Blood Type Blood Type Recheck Antibody Screen 09/02/18 09/02/18 09/03/18 16:52 20:34 03:51 WBC 13.6 H RBC 3.45 L Hgb 9.0 L Hct 28.0 L MCV 81.0 MCH 26.0 L MCHC 32.1 RDW 15.2 Plt Count 371 MPV 9.0 Neut % (Auto) 78.5 H Lymph % (Auto) 11.1 [place] % (Auto) 9.2 H Eos % (Auto) 1.0 Baso % (Auto) 0.2 Neut # (Auto) 10.7 H Lymph # (Auto) 1.5 [place] # (Auto) 1.2 H Eos # (Auto) 0.1 Baso # (Auto) 0.0 WBC Differential . Differential Comment Auto diff final Sodium Potassium Chloride Carbon Dioxide Anion Gap BUN Creatinine Estimated GFR POC Glucose 191 H 151 H Random Glucose Calcium Magnesium Total Bilirubin Direct Bilirubin Indirect Bilirubin AST ALT Alkaline Phosphatase Ammonia Total Protein Albumin Urine Color Urine Clarity Urine pH Ur Specific [place] Urine Protein Urine Glucose (UA) Urine Ketones Urine Occult Blood Urine Nitrate Urine Bilirubin Urine Urobilinogen Ur Leukocyte Esterase Urine RBC Urine WBC Ur Squamous Epith Cells Urine Bacteria Micro UA Comment Ur Microscopic Review Urine Culture Comments Blood Type Blood Type Recheck Antibody Screen 09/03/18 09/03/18 03:51 08:22 WBC RBC Hgb Hct MCV MCH MCHC RDW Plt Count MPV Neut % (Auto) Lymph % (Auto) [place] % (Auto) Eos % (Auto) Baso % (Auto) Neut # (Auto) Lymph # (Auto) [place] # (Auto) Eos # (Auto) Baso # (Auto) WBC Differential Differential Comment Sodium 141 Potassium 3.3 L Chloride 106 Carbon Dioxide 27.9 Anion Gap 7 BUN 12 Creatinine 0.58 Estimated GFR Greater than 89 POC Glucose 232 H Random Glucose 135 H Calcium 8.4 L Magnesium Total Bilirubin 0.2 Direct Bilirubin 0.1 Indirect Bilirubin 0.1 AST 8 L ALT 10 Alkaline Phosphatase 112 Ammonia Total Protein 7.1 Albumin 2.0 L Urine Color Urine Clarity Urine pH Ur Specific [place] Urine Protein Urine Glucose (UA) Urine Ketones Urine Occult Blood Urine Nitrate Urine Bilirubin Urine Urobilinogen Ur Leukocyte Esterase Urine RBC Urine WBC Ur Squamous Epith Cells Urine Bacteria Micro UA Comment Ur Microscopic Review Urine Culture Comments Blood Type Blood Type Recheck Antibody Screen Result Diagrams: 09/03/18 03:51 09/03/18 03:51 Microbiology: Microbiology 09/01/18 18:45 Urine Culture - Final Catheterized Urine No growth in 48 hours 08/26/18 15:00 Aerobic Blood Culture - Final Blood - Peripheral No growth in 5 days Anaerobic Blood Culture - Final No growth in 5 days 08/26/18 15:09 Aerobic Blood Culture - Final Blood - Peripheral No growth in 5 days Anaerobic Blood Culture - Final No growth in 5 days Imaging: Aorta w/Runoff CTA 08/27/18 00:00 CONCLUSION: 1. Extensive arteriosclerotic calcification with diffuse areas of mild luminal narrowing both inflow and outflow. There is one segment in the proximal left superficial femoral artery with greater than 70% narrowing. 2. Bilateral adrenal masses, stable from 2017. Extremity Arterial Study 08/27/18 00:00 CONCLUSION: 1. Severely decreased ankle-brachial indices bilaterally also reflected on toe brachial indices. Findings are consistent with severe bilateral lower extremity arterial disease, left greater than right. Abdomen X-Ray 08/30/18 06:00 CONCLUSION: Negative KUB. Chest X-Ray 09/01/18 00:00 CONCLUSION: Mild left base parenchymal opacity. Head CT 09/01/18 00:00 CONCLUSION: 1. No acute infarct, acute hemorrhage, midline shift or extra-axial fluid collections. 2. Moderate periventricular and subcortical white matter small vessel ischemic changes bilaterally. 3. Mild cerebral atrophy. 4. 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 . Procedures: 09/01/18-left groin exploration without endovascular repair . Patient/Family Conference Family Conference Location: Bedside Issues Discussed: * Palliative care role, purpose, approach * Additional medical, psychosocial, and spiritual history * Patients general health, functional status, and cognitive changes in the months leading up to the current hospitalization * Patient/family understanding of the current medical problems * Patient/family understanding of prognosis * Patients goals of care as best understood from advance directives and/or conversations and/or values * Current medical treatment options and benefits/burdens of those options * Likely scenarios comparing ongoing aggressive care with a transition to comfort measures only * Questions answered to the best of my ability * Briefly introduced hospice philosophy and benefits. * Palliative care contact information provided Assessment and Plan - Disease Oriented Problem List (1) PAD (peripheral artery disease) (2) Diabetes mellitus (3) Cardiomyopathy (4) CAD (coronary artery disease) (5) COPD (chronic obstructive pulmonary disease) (6) HTN (hypertension) (7) Hyperlipidemia - Symptom Scale (1) Pain Comment: Chronic ulcers to bilateral lower extremities. (2) Confusion 0-10 Scale: Unable to quantify Comment: Acute confusion. (3) Physical deconditioning 0-10 Scale: Unable to quantify Comment: Progressive. . Pertinent Non-Medical Issues: Psychosocial: Patient is . Patient has 3 adult children 2 sons and 1 daughter. Retired. Currently resides at home with her . Spiritual: Patient is Rastafarian Legal: Patient never completed advanced directives. Ethical issues impacting care: None identified at this time. . Important Contacts: Spouse-Zach Trivedi -[phone] Daughter-Luisa Trivedi-[phone] Prognosis: Ms Trivedi is a 72 years old female with a past medical history significant for peripheral arterial disease, diabetes mellitus, chronic lower extremity wounds, hypertension, coronary artery disease/cardiomyopathy, hyperlipidemia, depression, lumbar DDD/post polio syndrome, aortic artherosclerosis, COPD/ asthma and is a smoker. Patient presented to the emergency room on 08/26/18 for evaluation of wounds to his lower extremities. Clinical course complicated with confusion,and worsening wounds to lower extremities. Given multiple ongoing comorbidities, patient remains at high risk for further complications, deterioration and decline. . Code Status: Full Code Plan: PLAN: Legal decision maker: Patient is currently A & O x 3 and appears to have some insight regarding her health today. Patient had confusion for the past few days. Recommending joint decision making with her spouse FarooqZach who would serve as her Health care proxy decision maker in accordance to [place] statute. Goals: Brief discussion with patient's family, spouse and 2 adult sons. Patient with the support of her family would like to proceed with above the knee amputation to Left LE. Patient's family is not very receptive to palliative care. Family states that they have requested home health care and assistance with finding available resources to help patient after she has had an amputation, rehabilitation and then transferred home. They thought that palliative care would assist with informing patient and family resources available to patient at home after discharge from rehabilitation. Their concern is that patient`s will not be able to take care of patient after amputation and rehabilitation. Family is not interested in hospice at this time. Goals are aggressive. CODE STATUS: Full Code. SYMPTOMS: * Pain: Patient has chronic wounds to bilateral lower extremities left worse than right. Left lower extremity wrapped in dressing and has a foul smell. Pain is currently managed with hydrocodone/acetaminophen 5/325 every 8 hours prn. Vascular surgeon recommending left AKA. Patient will most likely continue to experience pain until after left AKA. No further recommendations at this time. * Confusion: History of baseline dementia. Worsening confusion during hospitalization. Head CT negative for acute abnormality/hemorrhage. During examination patient is alert and oriented to self, place and situation. Continue with neurochecks. * Physical deconditioning: Progressive. Patient has multiple ongoing comorbidities and worsening chronic bilateral lower extremity wounds. Patient ambulated with a walker prior to hospitalization. Patient needs left AKA. If goals remain aggressive patient will require physical therapy and most likely rehabilitation. Palliative care will continue to follow the patient during hospital course as condition evolves, to assist patient/decision-maker with understanding of their medical conditions, weighing benefits/burdens of treatment options, for clarification of goals of treatment. Additionally will assist with any symptoms of palliative concern Appreciation Thank you for the opportunity to participate in the care of Luisa Trivedi. Attestation Attestation: To help prompt me to consider important information that might be impacting today's encounter and assessment, information from prior notes written by myself or my colleagues may have been "brought forward" into today's note. My signature on this note, however, is an attestation that I personally performed the exam, history, and/or decision-making noted today, and, unless otherwise indicated, the interactions with patient, family, and staff as well as the review of records all occurred today. I also attest that the listed assessment and stated plan reflect my best clinical judgment today based on the combination of historical information, prior notes, and today's exam/ interactions. When time spent is documented, it refers only to time spent today by the signer, or if indicated, combined time spent today by collaborating physician/nurse practitioner.
--- NOTE | 2018-09-03 16:57 | P.PNVS ---
- Pre-operative Note Planned Procedure: LEFT AKA Interval History: Pt has continued pain and debilitation. Surgical options limited. Needs L AKA. Second opinion provided earlier this week by Dr. Crooks. Labs: WBC 13.6 th/mm3 (4.0-11.0) H 09/03/18 03:51 RBC 3.45 mil/mm3 (4.00-5.30) L 09/03/18 03:51 Hgb 9.0 gm/dL (11.6-15.3) L 09/03/18 03:51 Hct 28.0 % (35.0-46.0) L 09/03/18 03:51 MCV 81.0 fL (80.0-100.0) 09/03/18 03:51 MCH 26.0 pg (27.0-34.0) L 09/03/18 03:51 MCHC 32.1 % (32.0-36.0) 09/03/18 03:51 RDW 15.2 % (11.6-17.2) 09/03/18 03:51 Plt Count 371 th/mm3 (150-450) 09/03/18 03:51 MPV 9.0 fL (7.0-11.0) 09/03/18 03:51 Sodium 141 meq/L (136-145) 09/03/18 03:51 Potassium 3.3 meq/L (3.5-5.1) L 09/03/18 03:51 Chloride 106 meq/L (98-107) 09/03/18 03:51 Carbon Dioxide 27.9 meq/L (21.0-32.0) 09/03/18 03:51 Anion Gap 7 meq/L (5-15) 09/03/18 03:51 BUN 12 mg/dL (7-18) 09/03/18 03:51 Random Glucose 135 mg/dL (74-106) H 09/03/18 03:51 Calcium 8.4 mg/dL (8.5-10.1) L 09/03/18 03:51 Blood: T&S active Imaging: ITS Impressions Aorta w/Runoff CTA 08/27/18 00:00 CONCLUSION: 1. Extensive arteriosclerotic calcification with diffuse areas of mild luminal narrowing both inflow and outflow. There is one segment in the proximal left superficial femoral artery with greater than 70% narrowing. 2. Bilateral adrenal masses, stable from 2017. Extremity Arterial Study 08/27/18 00:00 CONCLUSION: 1. Severely decreased ankle-brachial indices bilaterally also reflected on toe brachial indices. Findings are consistent with severe bilateral lower extremity arterial disease, left greater than right. Abdomen X-Ray 08/30/18 06:00 CONCLUSION: Negative KUB. Chest X-Ray 09/01/18 00:00 CONCLUSION: Mild left base parenchymal opacity. Head CT 09/01/18 00:00 CONCLUSION: 1. No acute infarct, acute hemorrhage, midline shift or extra-axial fluid collections. 2. Moderate periventricular and subcortical white matter small vessel ischemic changes bilaterally. 3. Mild cerebral atrophy. 4. 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 . Orders: NPO Post-operative Destination: PACU then back to floor Operative site marked: Yes Consent: Informed consent has been obtained from Luisa Trivedi. I have explained the procedure in detail and discussed the risks, benefits, and potential complications. All questions have been answered. Patient Contact Information: I discussed her situation with the patient, her and son at bedside. We all agree that next step is LEFT AKA.
[2018-09-04] MEDS: Piperacil/Tazo 3.375 GM Premix 3.375 GM/50 ML PIGGYBACK IV.SIG SCH ×3 (05:20→17:28)
[2018-09-04 06:23] LABS: Baso % (Auto) 0.3 % (0.0-2.0); Eos # (Auto) 0.1 th/mm3 (0.0-0.4); Eos % (Auto) 1.1 % (0.0-4.0); Hematocrit 27.2 % (35.0-46.0); Hemoglobin 8.8 gm/dL (11.6-15.3); Lymph # (Auto) 1.6 th/mm3 (1.0-4.8); Lymph % (Auto) 12.3 % (9.0-44.0); Mean Corpuscular HGB Conc 32.2 % (32.0-36.0); Mean Corpuscular Hemoglobin 25.8 pg (27.0-34.0); Mean Corpuscular Volume 80.1 fL (80.0-100.0); Mono # (Auto) 1.1 th/mm3 (0.0-0.9); Mono % (Auto) 8.4 % (0.0-8.0); Neut % (Auto) 77.9 % (16.0-70.0); Platelet Count 349 th/mm3 (150-450); Red Cell Distribution Width 15.9 % (11.6-17.2); White Blood Count 12.8 th/mm3 (4.0-11.0)
[2018-09-04 06:39] LABS: Anion Gap 7 meq/L (5-15); Blood Urea Nitrogen 10 mg/dL (7-18); Calcium 8.4 mg/dL (8.5-10.1); Carbon Dioxide 27.6 meq/L (21.0-32.0); Chloride 104 meq/L (98-107); Glomerular Filtration Rate Greater Than 89 mL/min (>89); Glucose,Random 182 mg/dL (74-106); Magnesium 1.5 mg/dL (1.5-2.5); Sodium 139 meq/L (136-145)
[2018-09-04] MEDS ORDERED: Sodium Chlor 0.9% Inj 500 ML IV.CONT ONE (07:15)
--- NOTE | 2018-09-04 09:42 | P.PNVS ---
Subjective Subjective/Hospital Course: Prepared for LEFT AKA this morning. Rec'd call from daughter who did not want this surgery. at the present time, the presence of the leg is not acutely life-threatening. As such and given the extensive family discord, I would ask that all members of the family (, son, daughter) meet to discuss their wishes. The patient, although she provided consent yesterday, is not fully competent at all times. As of last night, the patient, (NOK) and son and I all agreed to proceed with L AKA. We talked about all the options and spent considerable time discussing in preparation for today's procedure. The daughter is coming down today. I am happy to perform the LEFT AKA when the family and patient reach a consensus , or if the infection starts affecting her systemically. If I am not available within a reasonable time frame because of other clinical demands, my partner, Dr. Jimenez may be available to perform the surgery. Both he and Dr. Crooks have agreed that an AKA is the most medically appropriate option. Objective Vital Signs / I&O: Vital Signs 09/03/18 12:00 09/03/18 16:00 09/03/18 20:00 Temperature 97.7 F 97.6 F 99.5 F Pulse Rate 106 H 96 H 102 H Respiratory Rate 17 18 18 Blood Pressure 153/69 H 128/69 125/68 Pulse Oximetry 97 95 95 09/04/18 00:00 09/04/18 04:00 Temperature 99.0 F 98.1 F Pulse Rate 95 H 96 H Respiratory Rate 18 18 Blood Pressure 139/59 L 152/65 H Pulse Oximetry 95 97 Intake & Output 09/03/18 09/04/18 09/04/18 18:59 06:59 18:59 Intake Total 1600 / 1600 150 / 150 60 / 60 Output Total 900 / 900 650 / 650 Balance 700 / 700 150 / 150 -590 / -590 Weight 61.7 kg Intake: IV 400 / 400 150 / 150 NS + KCl 20 mEq Inj 1,000 ML @ 350 / 350 60 mls/hr IV.CONT .[id number] ELYSIA Rx#:[id number] Zosyn 3.375 GM Premix 3.375 gm 50 / 50 150 / 150 In 50 ml @ 100 mls/hr IV.SIG Q6H ELYSIA Rx#:[id number] Oral 1200 / 1200 60 / 60 Output: Urine 900 / 900 650 / 650 Other: Date of Last Bowel Movement 08/27/18 09/03/18 # Bowel Movements 3 0 Laboratory Results - last 24 hr 09/03/18 09/03/18 09/03/18 11:35 17:32 21:37 WBC RBC Hgb Hct MCV MCH MCHC RDW Plt Count MPV Neut % (Auto) Lymph % (Auto) [place] % (Auto) Eos % (Auto) Baso % (Auto) Neut # (Auto) Lymph # (Auto) [place] # (Auto) Eos # (Auto) Baso # (Auto) WBC Differential Differential Comment Sodium Potassium Chloride Carbon Dioxide Anion Gap BUN Creatinine Estimated GFR POC Glucose 162 H 114 H 255 H Random Glucose Calcium Magnesium 09/04/18 09/04/18 09/04/18 05:49 05:49 08:04 WBC 12.8 H RBC 3.40 L Hgb 8.8 L Hct 27.2 L MCV 80.1 MCH 25.8 L MCHC 32.2 RDW 15.9 Plt Count 349 MPV 9.0 Neut % (Auto) 77.9 H Lymph % (Auto) 12.3 [place] % (Auto) 8.4 H Eos % (Auto) 1.1 Baso % (Auto) 0.3 Neut # (Auto) 10.0 H Lymph # (Auto) 1.6 [place] # (Auto) 1.1 H Eos # (Auto) 0.1 Baso # (Auto) 0.0 WBC Differential . Differential Comment Auto diff final Sodium 139 Potassium 3.0 L Chloride 104 Carbon Dioxide 27.6 Anion Gap 7 BUN 10 Creatinine 0.64 Estimated GFR Greater than 89 POC Glucose 198 H Random Glucose 182 H Calcium 8.4 L Magnesium 1.5 Microbiology 09/01/18 18:45 Urine Culture - Final Catheterized Urine No growth in 48 hours Assessment and Plan - Assessment (1) PAD (peripheral artery disease) Code(s): I73.9 - Peripheral vascular disease, unspecified Status: Acute - Plan L AKA when patient and family consensus achieved. please call if I can help in any way.
[2018-09-04] MEDS: Insulin NovoLOG Aspart Correctional Sugar Inj SQ SCH ×4 (09:49→20:36)
[2018-09-04] MEDS: Furosemide 20 MG Tablet PO SCH (09:52)
[2018-09-04] MEDS: ARIPiprazole 2 MG Tablet PO SCH (09:52)
[2018-09-04] MEDS: Tolterodine Tartrate LA 4 MG Capsule PO SCH (09:53)
[2018-09-04] MEDS: Lisinopril 10 MG Tablet PO SCH ×2 (09:53→20:28)
[2018-09-04] MEDS: Senna/Docusate Sodium 8.6/50 MG Tablet PO SCH ×2 (09:53→20:28)
[2018-09-04] MEDS: Gabapentin 300 MG Capsule PO SCH ×2 (09:53→20:29)
[2018-09-04] MEDS: Enoxaparin Inj 30 MG/0.3 ML Syringe SQ SCH (09:53)
[2018-09-04] MEDS: Insulin Detemir Inj 1,000 UNIT/10 ML Vial SQ SCH ×2 (09:54→20:35)
--- NOTE | 2018-09-04 10:19 | P.PNIM ---
Subjective Interval history: Pt had been planned for left AKA today but the pts daughter is now voicing that she does not want the surgery performed and so it was cancelled until the pts family is all in agreement on a decision. Pt still with some intermittent confusion. Afebrile Physical Exam Vital signs: Last Vital Signs Temp 98.1 F 09/04/18 04:00 Pulse 96 H 09/04/18 04:00 Resp 18 09/04/18 04:00 BP 152/65 H 09/04/18 04:00 Pulse Ox 97 09/04/18 04:00 Narrative: SKIN: RLE shallow ulcer on the lateral leg and large LLE deep ulceration on the lateral aspect of the left lower leg with foul- smelling drainage and surrounding erythema. Left great toe is black. heart reg lung course bs abd: s/nt/bs Results Labs CBC & Chem 7: 09/05/18 04:25 09/06/18 06:27 Imaging Aorta w/Runoff CTA 08/27/18 00:00 CONCLUSION: 1. Extensive arteriosclerotic calcification with diffuse areas of mild luminal narrowing both inflow and outflow. There is one segment in the proximal left superficial femoral artery with greater than 70% narrowing. 2. Bilateral adrenal masses, stable from 2017. Extremity Arterial Study 08/27/18 00:00 CONCLUSION: 1. Severely decreased ankle-brachial indices bilaterally also reflected on toe brachial indices. Findings are consistent with severe bilateral lower extremity arterial disease, left greater than right. Abdomen X-Ray 08/30/18 06:00 CONCLUSION: Negative KUB. Chest X-Ray 09/01/18 00:00 CONCLUSION: Mild left base parenchymal opacity. Head CT 09/01/18 00:00 CONCLUSION: 1. No acute infarct, acute hemorrhage, midline shift or extra-axial fluid collections. 2. Moderate periventricular and subcortical white matter small vessel ischemic changes bilaterally. 3. Mild cerebral atrophy. 4. 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 . Assessment and Plan Assessment (1) PAD (peripheral artery disease): Code(s): I73.9 - Peripheral vascular disease, unspecified Status: Acute Plan Nonhealing bilateral LE wounds (L worse than R) Severe PAD - Pt is a 72 y/o WF with HTN, Diabetes mellitus, CAD/Cardiomyopathy, hyperlipidemia, depression, Lumbar DDD/post-polio syndrome, aortic atherosclerosis, COPD/asthma and severe PAD. Per outpt records pt had a previous left open common femoral endarterectomy and ELHAM placement left common iliac to external iliac by Dr. Viv Meneses at [facility] on 05/21/18. Pt has had issues with wound healing which was not improved after this intervention. She has been receiving local wound care with [facility] wound care/Dr Best's office. She was seen at wound care office today and was recommended to report to the ED for further evaluation and antibiotics for two noted wounds, one on the right lateral leg and the other is a large LLE deep ulceration on the lateral aspect of the left lower leg with foul-smelling drainage and surrounding erythema. - WBC 8.9 (08/26), 10.7 (08/27), 9.3 (08/28) - Blood Cx (08/26) --> NGTD - Wound Gram stain (08/26) --> may gram negative rods. Many pleomorphic gram positive rods. - Wound Cx (08/26) --> MSSA - Vancomycin ( - 08/29) - Zosyn (08/26 - 08/29) - oxacillin (08/29 -09/02) - Appreciate input from Wound Care - Case d/w Dr. Frank (08/27). - Pt may require wound debridement in the OR - Case d/w Dr. Mauricio (08/30). - on 11/18/17 Pt underwent b/l LE revascularization procedure with Dr. Viv Meneses at [facility] - nearly occlusive left common femoral artery, high-grade proximal external iliac artery stenosis, moderate left common iliac artery disease however NO high grade stenosis. - placement of left distal common iliac to external ilac 6x40 self expanding stent - right common iliac artery with high-grade stenosis at its origin patent external iliac stent with moderate instent stenosis moderate to severe right common femoral disease - Plavix - [place] increased to 10/325 Q4H PRN pain (home med) --> decrease back to 6h scheduled - Pt hd been planned for re-do LEFT groin reconstruction and LLE angiogram with endovascular intervention with Dr. Mauricio on Saturday09/01/18. She was taken to the OR but the scarring was extensive in the left leg and not reconstructable. - Pt/family met with Dr Mauricio on 09/03 and at that time were in agreement for LEFT AKA which was planned for today, but now the pts daughter is not wanting to proceed with surgery so this has been placed on hold until the entire family can come to a decision about how best to proceed. The pts daughter will be arriving in town at some point today. - Cont. Zosyn. - DVT prophylaxis with Lovenox Delirium - Pt likely has underlying cognitive deficits/mild dementia based on my discussion with family. - Apparent superimposed delirium likely MF. 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 no acute cva - Urine cx with no growth in 48 hours. - meds/abx adjusted. HTN - Lisinopril 10mg BID Diabetes mellitus - NovoLog SSI - Accu checks - Hold OHA - Levemir 5units PM & 10 units qAM Cardiomyopathy, EF 35-40% on echo in 12/2017 - Cont. Lasix and KCl at home dose - monitor labs Depression - Cont. home meds COPD Asthma - Resume home meds - Duonebs PRN Attending Attestation Patient examined. Assessment and plan formulated with Rebecca Hurt PA-C. I agree with the above. discussed with DR Mauricio. pt/2 sons/ decided on AKA for this AM...now a daughter has called and wants surgery held. She is on the way I am told. Pt has 3 vascular surgeon opinions so far stating AKA is necessary. await the decision. Pt mentation has improved everyday...She tells me now that she does want the AKA. cont abx. prn pain control. Progress Note: Quality VTE Deep Vein Thrombosis/Pulmonary Embolism Present on Admission: No
[2018-09-04] MEDS: Nystatin 100,000 UNITS/GM Powder 15 GM Bottle TOPICAL SCH ×4 (10:28→20:35)
[2018-09-05] MEDS: Piperacil/Tazo 3.375 GM Premix 3.375 GM/50 ML PIGGYBACK IV.SIG SCH ×5 (00:05→18:45)
[2018-09-05 05:45] LABS: Baso # (Auto) 0.1 th/mm3 (0.0-0.2); Baso % (Auto) 0.4 % (0.0-2.0); Eos # (Auto) 0.2 th/mm3 (0.0-0.4); Eos % (Auto) 1.1 % (0.0-4.0); Hematocrit 25.1 % (35.0-46.0); Hemoglobin 8.3 gm/dL (11.6-15.3); Lymph # (Auto) 1.6 th/mm3 (1.0-4.8); Lymph % (Auto) 11.2 % (9.0-44.0); Mean Corpuscular Hemoglobin 26.4 pg (27.0-34.0); Mono # (Auto) 1.2 th/mm3 (0.0-0.9); Mono % (Auto) 8.5 % (0.0-8.0); Neut # (Auto) 11.4 th/mm3 (1.8-7.7); Neut % (Auto) 78.8 % (16.0-70.0); Platelet Count 391 th/mm3 (150-450); Red Blood Count 3.14 mil/mm3 (4.00-5.30); Red Cell Distribution Width 15.4 % (11.6-17.2); White Blood Count 14.5 th/mm3 (4.0-11.0)
[2018-09-05 06:04] LABS: Anion Gap 10 meq/L (5-15); Blood Urea Nitrogen 10 mg/dL (7-18); Calcium 8.3 mg/dL (8.5-10.1); Carbon Dioxide 27.9 meq/L (21.0-32.0); Chloride 103 meq/L (98-107); Glomerular Filtration Rate Greater Than 89 mL/min (>89); Glucose,Random 154 mg/dL (74-106); Magnesium 1.4 mg/dL (1.5-2.5); Potassium 3.1 meq/L (3.5-5.1); Sodium 141 meq/L (136-145)
[2018-09-05] MEDS: Insulin NovoLOG Aspart Correctional Sugar Inj SQ SCH ×5 (08:20→21:11)
[2018-09-05] MEDS ORDERED: Magnesium Sulfate Inj 2 GM in Sodium Chlor 0.9% Inj 96 ML IV.SIG ONE (09:00)
--- NOTE | 2018-09-05 09:15 | P.PNVS ---
Subjective Subjective/Hospital Course: Ms. Merrill was scheduled for L AKA today with Dr. Jimenez. The daughter flew in from [place] last night and I met with her today. She has requested that talk with a surgeon in [place] which I did yesterday and that surgeon agrees after I described the patient. The daughter insists on additional evaluation and possible limb salvage. I have explained to the daughter, , patient and son each that I think the ONLY option is AKA. Dr. Crooks, Dr. Jimenez and I are all in agreement, as is Dr. Rodriguez. However, I respect the family's wishes and will ask orthopedic surgery to weigh in. I am happy to have anyone else perform a BKA if he/she thinks there is a chance of salvaging the knee in the effort to use a prosthetic. Objective Vital Signs / I&O: Vital Signs 09/04/18 09:11 09/04/18 12:00 09/04/18 16:00 Temperature 97.6 F 97.6 F Pulse Rate 72 91 H Respiratory Rate 15 15 Blood Pressure 135/83 142/63 H Pulse Oximetry 95 97 96 09/04/18 20:00 09/04/18 20:51 09/05/18 00:00 Temperature 99.2 F 99.3 F Pulse Rate 111 H 109 H Respiratory Rate 18 18 Blood Pressure 182/77 H 146/65 H Pulse Oximetry 96 96 95 09/05/18 08:00 Temperature 98.0 F Pulse Rate 92 H Respiratory Rate 18 Blood Pressure 180/76 H Pulse Oximetry 96 Intake & Output 09/04/18 09/05/18 09/05/18 18:59 06:59 18:59 Intake Total 160 / 160 1160 / 1160 Output Total 650 / 650 450 / 450 Balance -490 / -490 710 / 710 Weight 61.7 kg 60.5 kg Intake: IV 100 / 100 1100 / 1100 NS + KCl 40 mEq Inj 1,000 ML @ 1000 / 1000 50 mls/hr IV.CONT .Q20H ELYSIA Rx# :[id number] Zosyn 3.375 GM Premix 3.375 gm 100 / 100 100 / 100 In 50 ml @ 100 mls/hr IV.SIG Q6H ELYSIA Rx#:[id number] Oral 60 / 60 60 / 60 Output: Urine 650 / 650 450 / 450 Other: # Incontinent Voids 2 Date of Last Bowel Movement 09/03/18 Laboratory Results - last 24 hr 09/04/18 09/04/18 09/04/18 11:40 15:58 20:32 WBC RBC Hgb Hct MCV MCH MCHC RDW Plt Count MPV Neut % (Auto) Lymph % (Auto) [place] % (Auto) Eos % (Auto) Baso % (Auto) Neut # (Auto) Lymph # (Auto) [place] # (Auto) Eos # (Auto) Baso # (Auto) WBC Differential Differential Comment Sodium Potassium Chloride Carbon Dioxide Anion Gap BUN Creatinine Estimated GFR POC Glucose 269 H 278 H 102 Random Glucose Calcium Magnesium 09/05/18 09/05/18 09/05/18 04:25 04:25 07:36 WBC 14.5 H RBC 3.14 L Hgb 8.3 L Hct 25.1 L MCV 80.0 MCH 26.4 L MCHC 33.0 RDW 15.4 Plt Count 391 MPV 9.0 Neut % (Auto) 78.8 H Lymph % (Auto) 11.2 [place] % (Auto) 8.5 H Eos % (Auto) 1.1 Baso % (Auto) 0.4 Neut # (Auto) 11.4 H Lymph # (Auto) 1.6 [place] # (Auto) 1.2 H Eos # (Auto) 0.2 Baso # (Auto) 0.1 WBC Differential . Differential Comment Auto diff final Sodium 141 Potassium 3.1 L Chloride 103 Carbon Dioxide 27.9 Anion Gap 10 BUN 10 Creatinine 0.62 Estimated GFR Greater than 89 POC Glucose 160 H Random Glucose 154 H Calcium 8.3 L Magnesium 1.4 L Assessment and Plan - Assessment (1) PAD (peripheral artery disease) Code(s): I73.9 - Peripheral vascular disease, unspecified Status: Acute - Plan L AKA when patient and family consensus achieved. I consulted orthopedics to discuss BKA and am more than happy if they would like to perform it. please call if I can help in any way.
[2018-09-05] MEDS: Senna/Docusate Sodium 8.6/50 MG Tablet PO SCH ×2 (09:22→21:04)
[2018-09-05] MEDS: Gabapentin 300 MG Capsule PO SCH ×2 (09:22→21:01)
[2018-09-05] MEDS: Tolterodine Tartrate LA 4 MG Capsule PO SCH (09:22)
[2018-09-05] MEDS: Furosemide 20 MG Tablet PO SCH (09:22)
[2018-09-05] MEDS: Lisinopril 10 MG Tablet PO SCH ×2 (09:23→21:01)
[2018-09-05] MEDS: ARIPiprazole 2 MG Tablet PO SCH (09:23)
[2018-09-05] MEDS: Enoxaparin Inj 30 MG/0.3 ML Syringe SQ SCH (09:24)
[2018-09-05] MEDS: Insulin Detemir Inj 1,000 UNIT/10 ML Vial SQ SCH ×2 (09:28→21:11)
[2018-09-05] MEDS: Nystatin 100,000 UNITS/GM Powder 15 GM Bottle TOPICAL SCH ×4 (09:28→21:11)
[2018-09-05] MEDS ORDERED: Potassium Chloride 10 MEQ ER Capsule PO ONE (11:00)
--- NOTE | 2018-09-05 12:23 | P.PNIM ---
Subjective Interval history: pt says she is willing to proceed with AKA but family is still not in agreement. more chest congestion. Physical Exam Vital signs: Last Vital Signs Temp 98.0 F 09/05/18 08:00 Pulse 92 H 09/05/18 08:00 Resp 18 09/05/18 08:00 BP 180/76 H 09/05/18 08:00 Pulse Ox 96 09/05/18 08:00 Narrative: SKIN: RLE shallow ulcer on the lateral leg and large LLE deep ulceration on the lateral aspect of the left lower leg with foul- smelling . necrotic black tissue and well as black great toe. heart reg lung course bs abd: s/nt/bs Results Labs CBC & Chem 7: 09/05/18 04:25 09/05/18 04:25 Assessment and Plan Assessment (1) PAD (peripheral artery disease): Code(s): I73.9 - Peripheral vascular disease, unspecified Status: Acute Plan Nonhealing bilateral LE wounds (L worse than R) Severe PAD - Pt is a 72 y/o WF with HTN, Diabetes mellitus, CAD/Cardiomyopathy, hyperlipidemia, depression, Lumbar DDD/post-polio syndrome, aortic atherosclerosis, COPD/asthma and severe PAD. Per outpt records pt had a previous left open common femoral endarterectomy and ELHAM placement left common iliac to external iliac by Dr. Viv Meneses at [facility] on 05/21/18. Pt has had issues with wound healing which was not improved after this intervention. She has been receiving local wound care with [facility] wound care/Dr Best's office. She was seen at wound care office today and was recommended to report to the ED for further evaluation and antibiotics for two noted wounds, one on the right lateral leg and the other is a large LLE deep ulceration on the lateral aspect of the left lower leg with foul-smelling drainage and surrounding erythema. - WBC 8.9 (08/26), 10.7 (08/27), 9.3 (08/28) - Blood Cx (08/26) --> NGTD - Wound Gram stain (08/26) --> may gram negative rods. Many pleomorphic gram positive rods. - Wound Cx (08/26) --> MSSA - Vancomycin ( - 08/29) - Zosyn (08/26 - 08/29) - oxacillin (08/29 - present) - Appreciate input from Wound Care - Case d/w Dr. Frank (08/27). - Pt may require wound debridement in the OR - Case d/w Dr. Mauricio (08/30). - on 11/18/17 Pt underwent b/l LE revascularization procedure with Dr. Viv Meneses at [facility] - nearly occlusive left common femoral artery, high-grade proximal external iliac artery stenosis, moderate left common iliac artery disease however NO high grade stenosis. - placement of left distal common iliac to external ilac 6x40 self expanding stent - right common iliac artery with high-grade stenosis at its origin patent external iliac stent with moderate instent stenosis moderate to severe right common femoral disease - Plavix - [place] increased to 10/325 Q4H PRN pain (home med) --> decrease back to 6h scheduled - Pt hd been planned for re-do LEFT groin reconstruction and LLE angiogram with endovascular intervention with Dr. Mauricio on Saturday09/01/18. She was taken to the OR but the scarring was extensive in the left leg and not reconstructable. - Pt/family met with Dr Mauricio on 09/03 and at that time were in agreement for LEFT AKA which was planned for 09/04, but now the pts daughter is not wanting to proceed with surgery so this has been placed on hold until the entire family can come to a decision about how best to proceed. Pt was again scheduled for surgery 09/05 but daughter and family placed on hold again. We have had 3 of our Vascular surgeons agree she needs AKA...and also Dr Mauricio spoke to a surgeon in [place] at request of family who I'm told also agrees. Family wanted yet another reccomendation and so Vascular consulted Ortho. - Cont. Zosyn. - DVT prophylaxis with Lovenox Pt is at high risk for decompensation and sepsis as AKA gets delayed. I have told this to her family multiple times. Delirium - Pt likely has underlying cognitive deficits/mild dementia based on my discussion with family. - Apparent superimposed delirium likely MF. 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 no acute cva - Urine cx with no growth in 48 hours. - meds/abx adjusted. her mental status had greatly improved over past 48hrs. HTN - Lisinopril 10mg BID Diabetes mellitus - NovoLog SSI - Accu checks - Hold OHA - Levemir 5units PM & 10 units qAM Cardiomyopathy, EF 35-40% on echo in 12/2017 - Cont. Lasix and KCl at home dose - monitor labs Depression - Cont. home meds COPD Asthma - Resume home meds - Duonebs PRN Progress Note: Quality VTE Deep Vein Thrombosis/Pulmonary Embolism Present on Admission: No
[2018-09-05] MEDS: Nystatin Liq 500,000 UNIT/5 ML UDC SWISH-SWAL SCH ×3 (12:42→21:11)
--- NOTE | 2018-09-05 14:53 | P.CONOP ---
[facility] Orthopedics Consult Note - [facility] Consult date: 09/05/18 Requesting physician: Rachid Mauricio Chief complaint: Left leg ulcer, cellulitis Narrative: This is a 72 year old female who was admitted with a necrotic ulcer to the left lower extremity. She has severe peripheral vascular disease and there have been attempted interventions to improve this which have not been successful. Above knee amputation has been recommended, however the family is seeking another opinion to see if she may be a candidate for below knee amputation and therefore orthopedics was consulted. [facility] - History History Provided By: Family Member, Medical Record - Medical History Medical History: Medical History (Last Reviewed 09/05/18 @ 14:49 by Ute Card MD) Diabetes PAD (peripheral artery disease) - Surgical History Surgical History: Surgical History (Last Reviewed 09/05/18 @ 14:49 by Ute Card MD) Status post insertion of iliac artery stent (Acute) H/O cardiac catheterization History of History of cholecystectomy Hx of colonoscopy Hx of esophagogastroduodenoscopy - Family History Family History: Family History (Last Reviewed 09/05/18 @ 14:49 by Ute Card MD) Mother Heart disease Father Alcoholism Heart disease - Social History I have reviewed the patient's Social History: Yes - Tobacco History Second Hand Smoke Exposure: Yes Tobacco Use In Past 30 Days: Yes Smoking Status: Current every day smoker Tobacco Type: Cigarettes - Alcohol History How Often Do You Have a Drink Containing Alcohol: Never - Substance Use History Substance History: No History of Abuse - Travel History Recent Travel in the [place] Within the Last 8 Weeks: No Recent Travel Out of the Country Within the Last 8 Weeks: No - Immunization History Tetanus Immunization: Unsure Hx Influenza Vaccine This Season: No Medications and Allergies Active Medications: Active Medications Acetaminophen (Tylenol) 650 mg PO Q4H PRN PRN Reason: Temp > 100.4 Last Admin: 09/03/18 10:56 Dose: 650 mg Hydrocodone Bitart/Acetaminophen ([place] 5/325) 1 tab PO Q8HR PRN PRN Reason: PAIN SCALE 1 TO 10 Last Admin: 09/05/18 03:50 Dose: 1 tab Al Hydroxide/Mg Hydroxide (Milk Of Magnesia Liq) 30 ml PO Q12H PRN PRN Reason: Mild Constipation Aripiprazole (Abilify) 2 mg PO DAILY [facility] Last Admin: 09/05/18 09:23 Dose: 2 mg Aspirin (Aspirin Chew) 81 mg PO DAILY [facility] Last Admin: 09/05/18 09:23 Dose: 81 mg Atorvastatin Calcium (Lipitor) 40 mg PO HS [facility] Last Admin: 09/04/18 20:29 Dose: 40 mg Clonidine HCl (Catapres) 0.1 mg PO Q6H PRN PRN Reason: SBP>180, DBP>110 Last Admin: 08/27/18 20:02 Dose: 0.1 mg Clopidogrel Bisulfate (Plavix) 75 mg PO DAILY [facility] Last Admin: 09/05/18 09:23 Dose: 75 mg Dextrose (D50w Vial) 50 ml IV.PUSH UNSCH PRN PRN Reason: PER HYPOGLYCEMIA PROTOCOL Enalaprilat (Vasotec Inj) 1.25 mg IV.PUSH Q6H PRN PRN Reason: SBP>180, DBP>110 Enoxaparin Sodium (Lovenox Inj) 30 mg SQ DAILY [facility] Last Admin: 09/05/18 09:24 Dose: 30 mg Furosemide (Lasix) 20 mg PO DAILY [facility] Last Admin: 09/05/18 09:22 Dose: 20 mg Gabapentin (Neurontin) 300 mg PO BID [facility] Last Admin: 09/05/18 09:22 Dose: 300 mg Glucagon (Glucagon Inj) 1 mg OTHER PRN PRN PRN Reason: for Hypoglycemia Protocol Piperacillin/Tazobactam/Dextrose (Zosyn 3.375 Gm Premix) 3.375 gm in 50 mls @ 100 mls/hr IV.SIG Q6H [facility] Last Infusion: 09/05/18 12:27 Dose: Infused Potassium Chloride/Sodium Chloride (Ns + Kcl 40 Meq Inj) 1,000 mls @ 50 mls/hr IV.CONT .Q20H [facility] Last Admin: 09/05/18 03:47 Dose: 50 mls/hr Insulin Aspart (Novolog Insulin Correctional Sugar Inj) 0 unit SQ ACHS [facility]; Protocol Last Admin: 09/05/18 11:50 Dose: 1 unit Insulin Detemir (Levemir Inj) 5 unit SQ HS [facility] Last Admin: 09/04/18 20:35 Dose: 5 unit Insulin Detemir (Levemir Inj) 10 unit SQ DAILY [facility] Last Admin: 09/05/18 09:28 Dose: 10 unit Lisinopril (Prinivil) 10 mg PO BID [facility] Last Admin: 09/05/18 09:23 Dose: 10 mg Nystatin (Mycostatin Powder) 1 applicatio TOPICAL QID [facility] Last Admin: 09/05/18 12:42 Dose: 1 applicatio Nystatin (Mycostatin Liq) 5 ml SWISH-SWAL QID [facility] Last Admin: 09/05/18 12:42 Dose: 5 ml Ondansetron HCl (Zofran Inj) 4 mg IV.PUSH Q6H PRN PRN Reason: NAUSEA OR VOMITING Pantoprazole Sodium (Protonix) 40 mg PO DAILY [facility] Last Admin: 09/05/18 09:23 Dose: 40 mg Pt Own (Fluticasone- Salmeterol [Airduo Respiclick] 55/14 Mcg Inh 1 each INH BID [facility] Potassium Chloride (Klor-Con 10) 10 meq PO DAILY [facility] Last Admin: 09/05/18 09:22 Dose: 10 meq Senna/Docusate Sodium (Carissa-Colace) 1 tab PO BID [facility] Last Admin: 09/05/18 09:22 Dose: 1 tab Sodium Chloride (Ns Flush) 2 ml IV.FLUSH BID [facility] Last Admin: 09/05/18 09:28 Dose: Not Given Sodium Chloride (Ns Flush) 2 ml IV.FLUSH PRN PRN PRN Reason: FLUSH AFTER USING IV ACCESS Last Admin: 09/03/18 23:41 Dose: 2 ml Tolterodine Tartrate (Detrol La) 4 mg PO DAILY [facility] Last Admin: 09/05/18 09:22 Dose: 4 mg Allergies Allergy/AdvReac Type Severity Reaction Status Date / Time morphine Allergy Severe Confusion Verified 08/27/18 06:47 Home Medications Medication Instructions Recorded Confirmed Type aripiprazole 2 mg PO DAILY 08/26/18 08/26/18 History aspirin 81 mg PO DAILY 08/26/18 08/26/18 History atorvastatin 40 mg PO QPM 08/26/18 08/26/18 History clopidogrel [Plavix] 75 mg PO DAILY 08/26/18 08/26/18 History fesoterodine [Toviaz] 8 mg PO DAILY 08/26/18 08/26/18 History fluticasone-salmeterol [AirDuo 1 puff INHALATION BID 08/26/18 08/26/18 History RespiClick] furosemide [Lasix] 20 mg PO DAILY 08/26/18 08/26/18 History gabapentin 300 mg PO BID 08/26/18 08/26/18 History glimepiride 2 mg PO QAM 08/26/18 08/26/18 History hydrocodone-acetaminophen [[place]] 1 tab PO Q6H PRN 08/26/18 08/26/18 History insulin detemir U-100 [Levemir 25 units SUBCUT BID 08/26/18 08/26/18 History FlexTouch U-100 Insuln] lansoprazole 30 mg PO DAILY 08/26/18 08/26/18 History metformin 500 mg PO BID 08/26/18 08/26/18 History mirabegron [Myrbetriq] 50 mg PO DAILY 08/26/18 08/26/18 History potassium chloride 10 meq PO DAILY 08/26/18 08/26/18 History Exam Vital signs: Vital Signs 09/04/18 16:00 09/04/18 20:00 09/04/18 20:51 Temperature 97.6 F 99.2 F Pulse Rate 91 H 111 H Respiratory Rate 15 18 Blood Pressure 142/63 H 182/77 H Pulse Oximetry 96 96 96 09/05/18 00:00 09/05/18 08:00 09/05/18 12:00 Temperature 99.3 F 98.0 F 99.1 F Pulse Rate 109 H 92 H 107 H Respiratory Rate 18 18 20 Blood Pressure 146/65 H 180/76 H 148/83 H Pulse Oximetry 95 96 100 Intake & Output 09/04/18 09/05/18 09/05/18 18:59 06:59 18:59 Intake Total 160 / 160 1160 / 1160 150 / 150 Output Total 650 / 650 450 / 450 Balance -490 / -490 710 / 710 150 / 150 Weight 61.7 kg 60.5 kg Intake: IV 100 / 100 1100 / 1100 150 / 150 NS + KCl 40 mEq Inj 1,000 ML @ 1000 / 1000 50 mls/hr IV.CONT .Q20H [facility] Rx# :[id number] Magnesium Sulfate Inj 2 GM In 100 / 100 NS Inj 96 ML @ 50 mls/hr IV.SIG ONCE ONE Rx#:[id number] Zosyn 3.375 GM Premix 3.375 gm 100 / 100 100 / 100 50 / 50 In 50 ml @ 100 mls/hr IV.SIG Q6H [facility] Rx#:[id number] Oral 60 / 60 60 / 60 Output: Urine 650 / 650 450 / 450 Other: # Incontinent Voids 2 Date of Last Bowel Movement 09/03/18 Narrative: The patient is awake but confused. She is in no apparent distress. Examination of the left leg shows necrosis of the lateral aspect of the lower leg with discoloration up to the knee. There is coolness noted to the limb. The thigh appears warm without skin discoloration. Results - Labs Result Diagrams: 09/05/18 04:25 09/05/18 04:25 Labs: Laboratory Results - last 24 hr 09/04/18 09/04/18 09/05/18 15:58 20:32 04:25 WBC 14.5 H RBC 3.14 L Hgb 8.3 L Hct 25.1 L MCV 80.0 MCH 26.4 L MCHC 33.0 RDW 15.4 Plt Count 391 MPV 9.0 Neut % (Auto) 78.8 H Lymph % (Auto) 11.2 Trigg % (Auto) 8.5 H Eos % (Auto) 1.1 Baso % (Auto) 0.4 Neut # (Auto) 11.4 H Lymph # (Auto) 1.6 Trigg # (Auto) 1.2 H Eos # (Auto) 0.2 Baso # (Auto) 0.1 WBC Differential . Differential Comment Auto diff final Sodium Potassium Chloride Carbon Dioxide Anion Gap BUN Creatinine Estimated GFR POC Glucose 278 H 102 Random Glucose Calcium Magnesium 09/05/18 09/05/18 09/05/18 04:25 07:36 11:41 WBC RBC Hgb Hct MCV MCH MCHC RDW Plt Count MPV Neut % (Auto) Lymph % (Auto) Trigg % (Auto) Eos % (Auto) Baso % (Auto) Neut # (Auto) Lymph # (Auto) Trigg # (Auto) Eos # (Auto) Baso # (Auto) WBC Differential Differential Comment Sodium 141 Potassium 3.1 L Chloride 103 Carbon Dioxide 27.9 Anion Gap 10 BUN 10 Creatinine 0.62 Estimated GFR Greater than 89 POC Glucose 160 H 188 H Random Glucose 154 H Calcium 8.3 L Magnesium 1.4 L Assessment and Plan - Assessment and Plan 72 year old female with severe peripheral vascular disease and a left leg necrotic ulcer. I do not feel she is a candidate for a below knee amputation. I discussed this over the phone with her Ankush. I recommended they continue plans for above knee amputation with Dr. Mauricio. All questions were answered. Plan of care discussed with CHILO.
[2018-09-06] MEDS: Piperacil/Tazo 3.375 GM Premix 3.375 GM/50 ML PIGGYBACK IV.SIG SCH ×5 (00:15→22:01)
[2018-09-06 07:31] LABS: Anion Gap 13 meq/L (5-15); Blood Urea Nitrogen 9 mg/dL (7-18); Calcium 8.8 mg/dL (8.5-10.1); Carbon Dioxide 24.3 meq/L (21.0-32.0); Chloride 102 meq/L (98-107); Glomerular Filtration Rate Greater Than 89 mL/min (>89); Glucose,Random 141 mg/dL (74-106); Potassium 3.8 meq/L (3.5-5.1); Sodium 139 meq/L (136-145)
[2018-09-06] MEDS: Acetaminophen 325 MG Tablet PO PRN ×2 (09:06→22:22)
[2018-09-06] MEDS: Lisinopril 10 MG Tablet PO SCH ×2 (09:06→21:53)
[2018-09-06] MEDS: ARIPiprazole 2 MG Tablet PO SCH (09:06)
[2018-09-06] MEDS: Gabapentin 300 MG Capsule PO SCH ×2 (09:06→21:52)
[2018-09-06] MEDS: Furosemide 20 MG Tablet PO SCH (09:07)
[2018-09-06] MEDS: Nystatin Liq 500,000 UNIT/5 ML UDC SWISH-SWAL SCH ×4 (09:07→21:52)
[2018-09-06] MEDS: Senna/Docusate Sodium 8.6/50 MG Tablet PO SCH ×2 (09:07→21:53)
[2018-09-06] MEDS: Tolterodine Tartrate LA 4 MG Capsule PO SCH (09:07)
[2018-09-06] MEDS: Insulin NovoLOG Aspart Correctional Sugar Inj SQ SCH ×4 (09:07→21:51)
[2018-09-06] MEDS: Enoxaparin Inj 30 MG/0.3 ML Syringe SQ SCH (09:07)
[2018-09-06] MEDS: Nystatin 100,000 UNITS/GM Powder 15 GM Bottle TOPICAL SCH ×4 (09:08→21:53)
[2018-09-06] MEDS: Insulin Detemir Inj 1,000 UNIT/10 ML Vial SQ SCH ×2 (09:08→21:51)
--- NOTE | 2018-09-06 11:55 | P.PNVS ---
Subjective Procedure: L groin exploration Subjective/Hospital Course: patient is sitting comfort in bed no complaints Objective Vital Signs / I&O: Vital Signs 09/05/18 12:00 09/05/18 16:00 09/05/18 20:00 Temperature 99.1 F 99.2 F 97.9 F Pulse Rate 107 H 103 H 104 H Respiratory Rate 20 18 16 Blood Pressure 148/83 H 131/60 141/65 H Pulse Oximetry 100 97 96 09/06/18 00:00 09/06/18 08:00 Temperature 97.4 F L 100.6 F H Pulse Rate 99 H 112 H Respiratory Rate 17 24 Blood Pressure 131/68 157/65 H Pulse Oximetry 97 96 Intake & Output 09/05/18 09/06/18 09/06/18 18:59 06:59 18:59 Intake Total 842 / 842 150 / 150 Balance 842 / 842 150 / 150 Weight 60.5 kg Intake: IV 602 / 602 150 / 150 NS + KCl 40 mEq Inj 1,000 ML @ 452 / 452 50 mls/hr IV.CONT .Q20H [facility] Rx# :[id number] Magnesium Sulfate Inj 2 GM In 100 / 100 NS Inj 96 ML @ 50 mls/hr IV.SIG ONCE ONE Rx#:[id number] Zosyn 3.375 GM Premix 3.375 gm 50 / 50 150 / 150 In 50 ml @ 100 mls/hr IV.SIG Q6H [facility] Rx#:[id number] Oral 240 / 240 Other: # Voids 6 3 # Incontinent Voids 5 Date of Last Bowel Movement 09/05/18 # Bowel Movements 2 3 # Incontinent Bowel Movements 2 Exam: Left foot wound is clean dry intact NO ALI Laboratory Results - last 24 hr 09/05/18 09/05/18 09/05/18 11:41 16:56 21:07 Sodium Potassium Chloride Carbon Dioxide Anion Gap BUN Creatinine Estimated GFR POC Glucose 188 H 134 H 134 H Random Glucose Calcium 09/06/18 09/06/18 09/06/18 06:27 07:31 11:05 Sodium 139 Potassium 3.8 Chloride 102 Carbon Dioxide 24.3 Anion Gap 13 BUN 9 Creatinine 0.62 Estimated GFR Greater than 89 POC Glucose 160 H 153 H Random Glucose 141 H Calcium 8.8 Assessment and Plan - Assessment (1) PAD (peripheral artery disease) Code(s): I73.9 - Peripheral vascular disease, unspecified Status: Acute - Plan Ms. Merrill is a pleasant patient with left lower extremity tissue loss. She has severe inflow disease. She underwent an attempt for a left groin reconstruction by Dr. Mauricio and she was noted to have a non-reconstructable arterial disease up to the external iliac artery. The procedure was terminated due to her comorbidity and an above-knee amputation was offered to the patient. The patient and the family initially were agreeable to proceed with the above- knee amputation. The procedure was scheduled and canceled twice. once on for Dr. Mauricio and on Saturday for myself. The patient's daughter requested multiple second opinions for possible limb salvage. It was explained to the daughter, , patient and son each that we think the ONLY option is AKA. The family remains confused regarding the patient's condition. They continue to doubt our clinical decision making which makes it difficult to care for the patient. I will sign off. If the family is agreeing for an above-knee amputation, I recommend it to be done by another surgeon. If other surgeons in the hospital are not comfortable doing the procedure, the patient is clinically stable and can be transferred to an outlying facility. Bill Jimenez MD [phone]
--- NOTE | 2018-09-06 13:30 | P.PNIM ---
Subjective Interval history: Pt had low grade fever this morning of 100.6 Sitting in bed comfortably Still with some upper respiratory congestion Physical Exam Vital signs: Last Vital Signs Temp 97.9 F 09/06/18 12:00 Pulse 101 H 09/06/18 12:00 Resp 20 09/06/18 12:00 BP 132/81 09/06/18 12:00 Pulse Ox 98 09/06/18 12:00 Narrative: SKIN: RLE shallow ulcer on the lateral leg and large LLE deep necrotic ulceration on the lateral aspect of the left lower leg with foul-smelling, necrotic black tissue and well as black great toe. heart reg lung course bs abd: s/nt/bs Results Labs CBC & Chem 7: 09/05/18 04:25 09/06/18 06:27 Aorta w/Runoff CTA 08/27/18 00:00 CONCLUSION: 1. Extensive arteriosclerotic calcification with diffuse areas of mild luminal narrowing both inflow and outflow. There is one segment in the proximal left superficial femoral artery with greater than 70% narrowing. 2. Bilateral adrenal masses, stable from 2017. Extremity Arterial Study 08/27/18 00:00 CONCLUSION: 1. Severely decreased ankle-brachial indices bilaterally also reflected on toe brachial indices. Findings are consistent with severe bilateral lower extremity arterial disease, left greater than right. Abdomen X-Ray 08/30/18 06:00 CONCLUSION: Negative KUB. Chest X-Ray 09/01/18 00:00 CONCLUSION: Mild left base parenchymal opacity. Head CT 09/01/18 00:00 CONCLUSION: 1. No acute infarct, acute hemorrhage, midline shift or extra-axial fluid collections. 2. Moderate periventricular and subcortical white matter small vessel ischemic changes bilaterally. 3. Mild cerebral atrophy. 4. 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 . Assessment and Plan Assessment (1) PAD (peripheral artery disease): Code(s): I73.9 - Peripheral vascular disease, unspecified Status: Acute Plan Nonhealing bilateral LE wounds (L worse than R) Severe PAD - Pt is a 72 y/o WF with HTN, Diabetes mellitus, CAD/Cardiomyopathy, hyperlipidemia, depression, Lumbar DDD/post-polio syndrome, aortic atherosclerosis, COPD/asthma and severe PAD. Per outpt records pt had a previous left open common femoral endarterectomy and ELHAM placement left common iliac to external iliac by Dr. Viv Meneses at [facility] on 05/21/18. Pt has had issues with wound healing which was not improved after this intervention. She has been receiving local wound care with [facility] wound care/Dr Best's office. She was seen at wound care office today and was recommended to report to the ED for further evaluation and antibiotics for two noted wounds, one on the right lateral leg and the other is a large LLE deep ulceration on the lateral aspect of the left lower leg with foul-smelling drainage and surrounding erythema. - WBC 8.9 (08/26), 10.7 (08/27), 9.3 (08/28) - Blood Cx (08/26) --> NGTD - Wound Gram stain (08/26) --> may gram negative rods. Many pleomorphic gram positive rods. - Wound Cx (08/26) --> MSSA - Vancomycin ( - 08/29) - Zosyn (08/26 - 08/29) - oxacillin (08/29 - 09/02) - Zosyn resumed (09/02 - present) - Appreciate input from Wound Care - Case d/w Dr. Frank (08/27). - Pt may require wound debridement in the OR - Case d/w Dr. Mauricio (08/30). - on 11/18/17 Pt underwent b/l LE revascularization procedure with Dr. Viv Meneses at [facility] - nearly occlusive left common femoral artery, high-grade proximal external iliac artery stenosis, moderate left common iliac artery disease however NO high grade stenosis. - placement of left distal common iliac to external ilac 6x40 self expanding stent - right common iliac artery with high-grade stenosis at its origin patent external iliac stent with moderate instent stenosis moderate to severe right common femoral disease - Plavix - [place] increased to 10/325 Q4H PRN pain (home med) --> decrease back to 6h scheduled - Pt hd been planned for re-do LEFT groin reconstruction and LLE angiogram with endovascular intervention with Dr. Mauricio on Saturday09/01/18. She was taken to the OR but the scarring was extensive in the left leg and not reconstructable. - Pt/family met with Dr Mauricio on 09/03 and at that time were in agreement for LEFT AKA which was planned for 09/04, but now the pts daughter is not wanting to proceed with surgery so this has been placed on hold until the entire family can come to a decision about how best to proceed. - Pt was again scheduled for surgery 09/05 but daughter and family placed on hold again. - We had 3 of our Vascular surgeons agree she needs AKA and also Dr Mauricio spoke to a surgeon in [place] at the request of family who I'm told also agrees. Family wanted yet another recommendation and so Vascular consulted Ortho. The Orthopedic surgeon who saw the patient on 09/05 also agreed that AKA was most appropriate. - Per discussion with Dr. Jimenez who spoke extensively with the pts again on 09/06/18, the pt is tentatively planned for left AKA on Saturday. - Cont. Zosyn. - DVT prophylaxis with Lovenox - Pt is at high risk for decompensation and sepsis as AKA gets delayed. This has been explained to the pt and her family multiple times. Delirium - Pt likely has underlying cognitive deficits/mild dementia based on my discussion with family. - Apparent superimposed delirium likely MF. 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 no acute cva - Urine cx with no growth in 48 hours. - meds/abx adjusted. - Her mental status had greatly improved and is currently stable. HTN - Lisinopril 10mg BID Diabetes mellitus - NovoLog SSI - Accu checks - Hold OHA - Levemir 5units PM & 10 units qAM Cardiomyopathy, EF 35-40% on echo in 12/2017 - Cont. Lasix and KCl at home dose - monitor labs Depression - Cont. home meds COPD Asthma - Cont. home meds - Schedule Duonebs Q6H [place] and Duonebs PRN - Mucinex - Acapella/IS - Pulmonary toileting - Cont. Zosyn Attending Attestation Patient examined. Assessment and plan formulated with Rebecca Hurt PA-C. I agree with the above. spoke with dr Jimenez. He spoke with pt at bedside. pt crying now and wants to proceed with AKA. It is scheduled for Saturday. She has high risk of wound nonhealing after surgery and decompensation. understands and wants to proceed. W/out surgery she will definitley become septic from this necrotic/gangrenous limb will cont medical support over the weekend and try to keep her stable. Progress Note: Quality VTE Deep Vein Thrombosis/Pulmonary Embolism Present on Admission: No
[2018-09-06] MEDS: guaiFENesin 600 MG ER Tablet PO SCH ×2 (13:57→21:53)
[2018-09-07] MEDS: Piperacil/Tazo 3.375 GM Premix 3.375 GM/50 ML PIGGYBACK IV.SIG SCH ×4 (05:13→23:38)
[2018-09-07 05:37] LABS: Baso # (Auto) 0.1 th/mm3 (0.0-0.2); Baso % (Auto) 0.3 % (0.0-2.0); Eos # (Auto) 0.1 th/mm3 (0.0-0.4); Eos % (Auto) 0.6 % (0.0-4.0); Hematocrit 30.8 % (35.0-46.0); Hemoglobin 9.8 gm/dL (11.6-15.3); Lymph # (Auto) 1.7 th/mm3 (1.0-4.8); Lymph % (Auto) 11.1 % (9.0-44.0); Mean Corpuscular Hemoglobin 25.5 pg (27.0-34.0); Mean Corpuscular Volume 79.6 fL (80.0-100.0); Mean Platelet Volume 9.2 fL (7.0-11.0); Mono # (Auto) 1.2 th/mm3 (0.0-0.9); Mono % (Auto) 7.5 % (0.0-8.0); Neut # (Auto) 12.7 th/mm3 (1.8-7.7); Neut % (Auto) 80.5 % (16.0-70.0); Platelet Count 520 th/mm3 (150-450); Red Blood Count 3.86 mil/mm3 (4.00-5.30); Red Cell Distribution Width 15.7 % (11.6-17.2); White Blood Count 15.7 th/mm3 (4.0-11.0)
[2018-09-07 06:04] LABS: Calcium 9.2 mg/dL (8.5-10.1); Carbon Dioxide 26.9 meq/L (21.0-32.0); Potassium 3.3 meq/L (3.5-5.1)
[2018-09-07] MEDS: Nystatin Liq 500,000 UNIT/5 ML UDC SWISH-SWAL SCH ×4 (08:34→20:14)
[2018-09-07] MEDS: Enoxaparin Inj 30 MG/0.3 ML Syringe SQ SCH (08:34)
[2018-09-07] MEDS: Gabapentin 300 MG Capsule PO SCH ×2 (08:35→20:14)
[2018-09-07] MEDS: guaiFENesin 600 MG ER Tablet PO SCH ×2 (08:35→20:14)
[2018-09-07] MEDS: ARIPiprazole 2 MG Tablet PO SCH (08:36)
[2018-09-07] MEDS: Tolterodine Tartrate LA 4 MG Capsule PO SCH (08:36)
[2018-09-07] MEDS: Insulin NovoLOG Aspart Correctional Sugar Inj SQ SCH ×4 (08:38→20:28)
[2018-09-07] MEDS: Insulin Detemir Inj 1,000 UNIT/10 ML Vial SQ SCH ×2 (08:39→20:28)
[2018-09-07] MEDS: Furosemide 20 MG Tablet PO SCH (08:39)
[2018-09-07] MEDS: Senna/Docusate Sodium 8.6/50 MG Tablet PO SCH ×2 (08:40→20:14)
[2018-09-07] MEDS: Lisinopril 10 MG Tablet PO SCH ×2 (08:40→20:15)
[2018-09-07] MEDS: Nystatin 100,000 UNITS/GM Powder 15 GM Bottle TOPICAL SCH ×4 (08:40→20:14)
[2018-09-07] MEDS ORDERED: Potassium Chloride 25 MEQ Effervescent Tablet PO ONE (09:15)
--- NOTE | 2018-09-07 09:22 | P.PNIM ---
Subjective Interval history: Pt had fever last night with Tmax 101.3 Her O2 sats are stable on RA but she still has a congested cough Pt is drinking fluids well but not eating much of any food She is still intermittently confused Physical Exam Vital signs: Last Vital Signs Temp 99.7 F H 09/07/18 00:00 Pulse 93 H 09/07/18 07:43 Resp 16 09/07/18 07:43 BP 108/51 L 09/07/18 00:00 Pulse Ox 96 09/07/18 07:43 Narrative: SKIN: RLE shallow ulcer on the lateral leg and large LLE deep necrotic ulceration on the lateral aspect of the left lower leg with foul-smelling, as well as black great toe. Skin on the left foot is more mottled and a necrotic area of tissue on the left ankle noted. Pt with small pressure wound on her gluteal cleft as well. heart reg lung course bs abd: s/nt/bs Results Labs CBC & Chem 7: 09/07/18 05:06 09/07/18 05:06 Assessment and Plan Assessment (1) PAD (peripheral artery disease): Code(s): I73.9 - Peripheral vascular disease, unspecified Status: Acute Plan Nonhealing bilateral LE wounds (L worse than R) Severe PAD - Pt is a 72 y/o WF with HTN, Diabetes mellitus, CAD/Cardiomyopathy, hyperlipidemia, depression, Lumbar DDD/post-polio syndrome, aortic atherosclerosis, COPD/asthma and severe PAD. Per outpt records pt had a previous left open common femoral endarterectomy and ELHAM placement left common iliac to external iliac by Dr. Viv Meneses at [facility] on 05/21/18. Pt has had issues with wound healing which was not improved after this intervention. She has been receiving local wound care with [facility] wound care/Dr Best's office. She was seen at wound care office today and was recommended to report to the ED for further evaluation and antibiotics for two noted wounds, one on the right lateral leg and the other is a large LLE deep ulceration on the lateral aspect of the left lower leg with foul-smelling drainage and surrounding erythema. - WBC 8.9 (08/26), 10.7 (08/27), 9.3 (08/28) - Blood Cx (08/26) --> NGTD - Wound Gram stain (08/26) --> may gram negative rods. Many pleomorphic gram positive rods. - Wound Cx (08/26) --> MSSA - Vancomycin ( - 08/29) - Zosyn (08/26 - 08/29) - oxacillin (08/29 - 09/02) - Zosyn resumed (09/02 - present) - Appreciate input from Wound Care - Case d/w Dr. Frank (08/27). - Pt may require wound debridement in the OR - Case d/w Dr. Mauricio (08/30). - on 11/18/17 Pt underwent b/l LE revascularization procedure with Dr. Viv Meneses at [facility] - nearly occlusive left common femoral artery, high-grade proximal external iliac artery stenosis, moderate left common iliac artery disease however NO high grade stenosis. - placement of left distal common iliac to external ilac 6x40 self expanding stent - right common iliac artery with high-grade stenosis at its origin patent external iliac stent with moderate instent stenosis moderate to severe right common femoral disease - Plavix - [place] increased to 10/325 Q4H PRN pain (home med) --> decrease back to 6h scheduled - Pt hd been planned for re-do LEFT groin reconstruction and LLE angiogram with endovascular intervention with Dr. Mauricio on Saturday09/01/18. She was taken to the OR but the scarring was extensive in the left leg and not reconstructable. - Pt/family met with Dr Mauricio on 09/03 and at that time were in agreement for LEFT AKA which was planned for 09/04, but now the pts daughter is not wanting to proceed with surgery so this has been placed on hold until the entire family can come to a decision about how best to proceed. - Pt was again scheduled for surgery 09/05 but daughter and family placed on hold again. - We had 3 of our Vascular surgeons agree she needs AKA and also Dr Mauricio spoke to a surgeon in [place] at the request of family who I'm told also agrees. Family wanted yet another recommendation and so Vascular consulted Ortho. The Orthopedic surgeon who saw the patient on 09/05 also agreed that AKA was most appropriate. - Per discussion with Dr. Jimenez who spoke extensively with the pts again on 09/06/18, the pt is tentatively planned for left AKA on Saturday. - Discussed with the pts at bedside and nursing staff that the pt needs to try to cough and clear out her secretions more. Her WBC count is increased to 15 today. She is starting to have some intermittent fevers and this could be related to atelectasis vs. developing pulmonary infection vs. worsening status of her LLE/infection - Check CXR today - Cont. Zosyn. - Add Glucerna to her meals as she is drinking without difficulty but not eating much. Explained to the pts that without adequate nutrition she will have a difficult time with the healing process. - DVT prophylaxis with Lovenox - Pt is at high risk for decompensation and sepsis as AKA gets delayed. This has been explained to the pt and her family multiple times. Delirium - Pt likely has underlying cognitive deficits/mild dementia based on my discussion with family. - Apparent superimposed delirium likely MF. 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 no acute cva - Urine cx with no growth in 48 hours. - meds/abx adjusted. - Her mental status had greatly improved and but she is still intermittently confused. HTN - Lisinopril 10mg BID Diabetes mellitus - NovoLog SSI - Accu checks - Hold OHA - Levemir 5units PM & 10 units qAM Cardiomyopathy, EF 35-40% on echo in 12/2017 - Cont. Lasix and KCl at home dose - Replace potassium as needed. - monitor labs Depression - Cont. home meds COPD Asthma - Cont. home meds - Schedule Duonebs Q6H [place] and Duonebs PRN - Mucinex - Acapella/IS - Pulmonary toileting - Cont. Zosyn Attending Attestation Patient examined. Assessment and plan formulated with Rebecca Hurt PA-C. I agree with the above. pt with severe left leg pad and gangrenous limb. pt amputation delayed multiple times by family asking for more opinions. In all 5 different surgeons weighed in and all agreed on AKA. Pt now planned for AKA tomorrow. she has some fever related to the left leg ischemia but also chest congestion. chest congestion due to poor inspiratory effort. encouraging deep cough, IS, mucolytic, nebs. cont broad abx with zosyn. Pt and understand high perioperative risk of [place] or respiratory failure. And also post op risk of poor wound healing and persistent decline. Pt still may ultimately benefit from hospice if surgery unsuccessful. Progress Note: Quality VTE Deep Vein Thrombosis/Pulmonary Embolism Present on Admission: No
--- NOTE | 2018-09-07 09:39 | XR ---
EXAM DATE: 09/07/2018 9:13 AM EST AGE/SEX: 72 years / Female INDICATIONS: Cough. CLINICAL DATA: This is the patient's initial encounter. Patient reports that signs and symptoms have been present for 1 day and indicates a pain score of 0/10. MEDICAL/SURGICAL HISTORY: . Congestive heart failure. Chronic obstructive pulmonary disease. Di abetes. . Cholecystectomy. section. . COMPARISON: C, CHEST 1V SINGLE AP, 09/01/2018. . FINDINGS: Lungs are hyperinflated. There is no evidence of consolidating airspace disease, mass densities or ef fusions. Heart and mediastinal structures are stable. CONCLUSION: Stable chest without evidence of consolidating airspace disease. COPD Electronically signed by: Jackson Farmer MD Board Certified Radiologist 09/07/2018 9:38 AM EST
--- NOTE | 2018-09-07 10:14 | P.PNVS ---
Subjective Subjective/Hospital Course: no acute issues Objective Vital Signs / I&O: Vital Signs 09/06/18 11:47 09/06/18 12:00 09/06/18 16:00 Temperature 97.9 F 98.1 F Pulse Rate 101 H 104 H Respiratory Rate 20 18 Blood Pressure 132/81 125/60 Pulse Oximetry 96 98 98 09/06/18 20:00 09/06/18 20:14 09/07/18 00:00 Temperature 101.3 F H 99.7 F H Pulse Rate 115 H 112 H 97 H Respiratory Rate 24 20 22 Blood Pressure 118/55 L 108/51 L Pulse Oximetry 97 96 96 09/07/18 07:43 09/07/18 08:00 Temperature 97.9 F Pulse Rate 93 H 101 H Respiratory Rate 16 17 Blood Pressure 101/51 L Pulse Oximetry 96 94 L Intake & Output 09/06/18 09/07/18 09/07/18 18:59 06:59 18:59 Intake Total 345 / 345 340 / 340 Balance 345 / 345 340 / 340 Weight 57.6 kg Intake: IV 225 / 225 100 / 100 NS + KCl 40 mEq Inj 1,000 ML @ 125 / 125 50 mls/hr IV.CONT .Q20H [facility] Rx# :[id number] Zosyn 3.375 GM Premix 3.375 gm 100 / 100 100 / 100 In 50 ml @ 100 mls/hr IV.SIG Q6H [facility] Rx#:[id number] Oral 120 / 120 240 / 240 Other: # Incontinent Voids 5 # Bowel Movements 1 Physical Exam: LLE wound without change Laboratory Results - last 24 hr 09/06/18 09/06/18 09/06/18 11:05 16:59 19:36 WBC RBC Hgb Hct MCV MCH MCHC RDW Plt Count MPV Neut % (Auto) Lymph % (Auto) [place] % (Auto) Eos % (Auto) Baso % (Auto) Neut # (Auto) Lymph # (Auto) [place] # (Auto) Eos # (Auto) Baso # (Auto) WBC Differential Differential Comment Sodium Potassium Chloride Carbon Dioxide Anion Gap BUN Creatinine Estimated GFR POC Glucose 153 H 201 H 170 H Random Glucose Calcium 09/07/18 09/07/18 09/07/18 05:06 05:06 07:21 WBC 15.7 H RBC 3.86 L Hgb 9.8 L Hct 30.8 L MCV 79.6 L MCH 25.5 L MCHC 32.0 RDW 15.7 Plt Count 520 H D MPV 9.2 Neut % (Auto) 80.5 H Lymph % (Auto) 11.1 [place] % (Auto) 7.5 Eos % (Auto) 0.6 Baso % (Auto) 0.3 Neut # (Auto) 12.7 H Lymph # (Auto) 1.7 [place] # (Auto) 1.2 H Eos # (Auto) 0.1 Baso # (Auto) 0.1 WBC Differential . Differential Comment Auto diff final Sodium 142 Potassium 3.3 L Chloride 106 Carbon Dioxide 26.9 Anion Gap 9 BUN 12 Creatinine 0.67 Estimated GFR 86 L POC Glucose 171 H Random Glucose 154 H Calcium 9.2 Impressions Chest X-Ray 09/07/18 00:00 CONCLUSION: Stable chest without evidence of consolidating airspace disease. COPD Assessment and Plan - Assessment (1) PAD (peripheral artery disease) Code(s): I73.9 - Peripheral vascular disease, unspecified Status: Acute - Plan I had a long discussion with the patient yesterday. I mentioned to the that I signed off the patient care and advised him to have the surgery done by another surgeon when the family makes their final decision. He started crying at bedside and now wants the surgery. I scheduled the surgery for Saturday. I explained to him the risk of the operation including perioperative CT and . I explained to him the risk of poor wound healing and needing revisions. He also understand that hospice and comfort care will be the only option if the wound failed to heal despite revision attempts. Bill Jimenez MD [id number]
[2018-09-08] MEDS: Acetaminophen 325 MG Tablet PO PRN (02:51)
[2018-09-08] MEDS: Piperacil/Tazo 3.375 GM Premix 3.375 GM/50 ML PIGGYBACK IV.SIG SCH ×4 (04:28→23:17)
[2018-09-08 08:03] LABS: Baso # (Auto) 0.1 th/mm3 (0.0-0.2); Baso % (Auto) 0.3 % (0.0-2.0); Eos # (Auto) 0.1 th/mm3 (0.0-0.4); Eos % (Auto) 0.5 % (0.0-4.0); Hematocrit 28.3 % (35.0-46.0); Hemoglobin 9.2 gm/dL (11.6-15.3); Lymph # (Auto) 1.7 th/mm3 (1.0-4.8); Lymph % (Auto) 10.7 % (9.0-44.0); Mean Corpuscular HGB Conc 32.5 % (32.0-36.0); Mean Corpuscular Hemoglobin 25.8 pg (27.0-34.0); Mean Corpuscular Volume 79.4 fL (80.0-100.0); Mean Platelet Volume 9.2 fL (7.0-11.0); Mono # (Auto) 1.3 th/mm3 (0.0-0.9); Mono % (Auto) 8.1 % (0.0-8.0); Neut % (Auto) 80.4 % (16.0-70.0); Platelet Count 561 th/mm3 (150-450); Red Blood Count 3.57 mil/mm3 (4.00-5.30); Red Cell Distribution Width 16.3 % (11.6-17.2); White Blood Count 16.2 th/mm3 (4.0-11.0)
--- NOTE | 2018-09-08 08:18 | P.PNIM ---
Subjective Interval history: Pt planned for surgical intervention this morning Still with some low grade fevers and chest congestion. Physical Exam Vital signs: Last Vital Signs Temp 99.9 F H 09/08/18 04:00 Pulse 108 H 09/08/18 04:00 Resp 20 09/08/18 04:00 BP 134/63 09/08/18 04:00 Pulse Ox 93 L 09/08/18 04:00 Narrative: SKIN: RLE shallow ulcer on the lateral leg and large LLE deep necrotic ulceration on the lateral aspect of the left lower leg with foul-smelling, as well as black great toe. Skin on the left foot is more mottled and a necrotic area of tissue on the left ankle noted. Pt with small pressure wound on her gluteal cleft as well. heart reg lung course bs bilaterally, poor inspiratory effort abd: s/nt/bs Results Labs CBC & Chem 7: 09/16/18 05:48 09/16/18 05:48 Imaging Aorta w/Runoff CTA 08/27/18 00:00 CONCLUSION: 1. Extensive arteriosclerotic calcification with diffuse areas of mild luminal narrowing both inflow and outflow. There is one segment in the proximal left superficial femoral artery with greater than 70% narrowing. 2. Bilateral adrenal masses, stable from 2017. Extremity Arterial Study 08/27/18 00:00 CONCLUSION: 1. Severely decreased ankle-brachial indices bilaterally also reflected on toe brachial indices. Findings are consistent with severe bilateral lower extremity arterial disease, left greater than right. Abdomen X-Ray 08/30/18 06:00 CONCLUSION: Negative KUB. Chest X-Ray 09/01/18 00:00 CONCLUSION: Mild left base parenchymal opacity. Head CT 09/01/18 00:00 CONCLUSION: 1. No acute infarct, acute hemorrhage, midline shift or extra-axial fluid collections. 2. Moderate periventricular and subcortical white matter small vessel ischemic changes bilaterally. 3. Mild cerebral atrophy. 4. 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 . Chest X-Ray 09/07/18 00:00 CONCLUSION: Stable chest without evidence of consolidating airspace disease. COPD Assessment and Plan Assessment (1) PAD (peripheral artery disease): Code(s): I73.9 - Peripheral vascular disease, unspecified Status: Acute Plan Nonhealing bilateral LE wounds (L worse than R) Severe PAD - Pt is a 72 y/o WF with HTN, Diabetes mellitus, CAD/Cardiomyopathy, hyperlipidemia, depression, Lumbar DDD/post-polio syndrome, aortic atherosclerosis, COPD/asthma and severe PAD. Per outpt records pt had a previous left open common femoral endarterectomy and ELHAM placement left common iliac to external iliac by Dr. Viv Meneses at [facility] on 05/21/18. Pt has had issues with wound healing which was not improved after this intervention. She has been receiving local wound care with [facility] wound care/Dr Best's office. She was seen at wound care office today and was recommended to report to the ED for further evaluation and antibiotics for two noted wounds, one on the right lateral leg and the other is a large LLE deep ulceration on the lateral aspect of the left lower leg with foul-smelling drainage and surrounding erythema. - WBC 8.9 (08/26), 10.7 (08/27), 9.3 (08/28) - Blood Cx (08/26) --> NGTD - Wound Gram stain (08/26) --> may gram negative rods. Many pleomorphic gram positive rods. - Wound Cx (08/26) --> MSSA - Vancomycin ( - 08/29) - Zosyn (08/26 - 08/29) - oxacillin (08/29 - 09/02) - Zosyn resumed (09/02 - present) - Appreciate input from Wound Care - Case d/w Dr. Frank (08/27). - Pt may require wound debridement in the OR - Case d/w Dr. Mauricio (08/30). - on 11/18/17 Pt underwent b/l LE revascularization procedure with Dr. Viv Meneses at [facility] - nearly occlusive left common femoral artery, high-grade proximal external iliac artery stenosis, moderate left common iliac artery disease however NO high grade stenosis. - placement of left distal common iliac to external ilac 6x40 self expanding stent - right common iliac artery with high-grade stenosis at its origin patent external iliac stent with moderate instent stenosis moderate to severe right common femoral disease - Plavix - [place] increased to 10/325 Q4H PRN pain (home med) --> decrease back to 6h scheduled - Pt hd been planned for re-do LEFT groin reconstruction and LLE angiogram with endovascular intervention with Dr. Mauricio on Saturday09/01/18. She was taken to the OR but the scarring was extensive in the left leg and not reconstructable. - Pt/family met with Dr Mauricio on 09/03 and at that time were in agreement for LEFT AKA which was planned for 09/04, but now the pts daughter is not wanting to proceed with surgery so this has been placed on hold until the entire family can come to a decision about how best to proceed. - Pt was again scheduled for surgery 09/05 but daughter and family placed on hold again. - We had 3 of our Vascular surgeons agree she needs AKA and also Dr Mauricio spoke to a surgeon in [place] at the request of family who I'm told also agrees. Family wanted yet another recommendation and so Vascular consulted Ortho. The Orthopedic surgeon who saw the patient on 09/05 also agreed that AKA was most appropriate. - Per discussion with Dr. Jimenez who spoke extensively with the pts again on 09/06/18, the pt is tentatively planned for left AKA on Saturday. - Discussed with the pts at bedside and nursing staff that the pt needs to try to cough and clear out her secretions more. Her WBC count is increased to 15 today. She is starting to have some intermittent fevers and this could be related to atelectasis vs. developing pulmonary infection vs. worsening status of her LLE/infection - Check CXR (09/07/18) -->Stable chest without evidence of consolidating airspace disease and COPD - Cont. Zosyn. - Add Glucerna to her meals as she is drinking without difficulty but not eating much. Explained to the pts that without adequate nutrition she will have a difficult time with the healing process. - She has had some fevers for the last few days intermittently, likely related to the left leg ischemia but also chest congestion. The chest congestion is likely due to poor inspiratory effort. Cont. to encouraging deep cough, IS, mucolytic, nebs. Cont broad abx with zosyn. - Pt and understand high perioperative risk of [place] or respiratory failure. And also post op risk of poor wound healing and persistent decline. Pt still may ultimately benefit from hospice if surgery unsuccessful. - DVT prophylaxis with Lovenox - Pt is planned for surgical intervention this morning. Delirium - Pt likely has underlying cognitive deficits/mild dementia based on my discussion with family. - Apparent superimposed delirium likely MF. 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 no acute cva - Urine cx with no growth in 48 hours. - meds/abx adjusted. - Her mental status had greatly improved and but she is still intermittently confused. HTN - Lisinopril 10mg BID Diabetes mellitus - NovoLog SSI - Accu checks - Hold OHA - Levemir 5units PM & 10 units qAM Cardiomyopathy, EF 35-40% on echo in 12/2017 - Cont. Lasix and KCl at home dose - Replace potassium as needed. - monitor labs Depression - Cont. home meds COPD Asthma - Cont. home meds - Schedule Duonebs Q6H [place] and Duonebs PRN - Mucinex - Acapella/IS - Pulmonary toileting - Cont. Zosyn Progress Note: Quality VTE Deep Vein Thrombosis/Pulmonary Embolism Present on Admission: No
[2018-09-08 08:27] LABS: Calcium 8.8 mg/dL (8.5-10.1); Carbon Dioxide 26.7 meq/L (21.0-32.0)
[2018-09-08] MEDS ORDERED: Potassium Chlor 20 mEq Premix 20 MEQ/100 ML PIGGYBACK IV.SIG STA (08:45)
[2018-09-08] MEDS: Insulin Detemir Inj 1,000 UNIT/10 ML Vial SQ SCH ×2 (09:01→20:36)
[2018-09-08] MEDS: Insulin NovoLOG Aspart Correctional Sugar Inj SQ SCH ×4 (09:01→20:36)
[2018-09-08] MEDS: Furosemide 20 MG Tablet PO SCH (09:01)
[2018-09-08] MEDS: guaiFENesin 600 MG ER Tablet PO SCH ×2 (09:01→20:33)
[2018-09-08] MEDS: Lisinopril 10 MG Tablet PO SCH ×2 (09:01→20:33)
[2018-09-08] MEDS: Nystatin 100,000 UNITS/GM Powder 15 GM Bottle TOPICAL SCH ×4 (09:02→20:34)
[2018-09-08] MEDS: Enoxaparin Inj 30 MG/0.3 ML Syringe SQ SCH (09:02)
[2018-09-08] MEDS ORDERED: Sod Chloride 0.9% Inj 1,000 ML IV.CONT SCH (10:00)
[2018-09-08] MEDS ORDERED: Phenylephrine/NS 1000 MCG/10ML Syringe IV.PUSH ONE (11:44)
[2018-09-08] MEDS ORDERED: Sodium Chlor 0.9% Inj 250 ML IV.CONT ONE (11:44)
[2018-09-08] MEDS ORDERED: Lidocaine PF 1% Inj 5 ML Syringe INFILTRATN ONE (11:44)
--- NOTE | 2018-09-08 13:26 | P.OP ---
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 After general trach anesthesia, the patient was prepped and draped in the standard sterile fashion. Timeout was called with all members in the OR in agreement. An incision was made in the left thigh and dissection was taken down through the subcutaneous tissues electrocautery. The thigh compartment muscles were divided. The flap was created and the femur was divided using an electrical saw. The neurovascular bundle was identified ligated and divided. The amputation was completed. Hemostasis was achieved. The wound was closed in multiple layers approximating the fascia using 2-0 Vicryl suture in a figure- of-eight fashion. The skin was closed using 3-0 Vicryl followed by 4-0 Monocryl. The surgical dressing was applied. The patient tolerated the procedure well and was taken to recovery unit in stable condition.
[2018-09-08] MEDS ORDERED: fentaNYL Citrate Inj 100 MCG/2 ML Ampul ONE (13:45)
[2018-09-08] MEDS ORDERED: *HYDROmorphone PF Inj 1 MG/ML Ampul PERIprocedural Use ONLY ONE (14:02)
[2018-09-08] MEDS: Senna/Docusate Sodium 8.6/50 MG Tablet PO SCH ×2 (15:08→20:36)
[2018-09-08] MEDS: Nystatin Liq 500,000 UNIT/5 ML UDC SWISH-SWAL SCH ×3 (15:08→20:34)
[2018-09-08] MEDS: Tolterodine Tartrate LA 4 MG Capsule PO SCH (15:32)
[2018-09-08] MEDS: Gabapentin 300 MG Capsule PO SCH ×2 (15:32→20:33)
[2018-09-08] MEDS: ARIPiprazole 2 MG Tablet PO SCH (15:33)
[2018-09-09] MEDS: Piperacil/Tazo 3.375 GM Premix 3.375 GM/50 ML PIGGYBACK IV.SIG SCH ×4 (05:07→23:17)
[2018-09-09 07:30] LABS: Baso # (Auto) 0.1 th/mm3 (0.0-0.2); Baso % (Auto) 0.5 % (0.0-2.0); Eos % (Auto) 0.3 % (0.0-4.0); Hematocrit 27.3 % (35.0-46.0); Hemoglobin 8.7 gm/dL (11.6-15.3); Lymph # (Auto) 1.5 th/mm3 (1.0-4.8); Lymph % (Auto) 10.5 % (9.0-44.0); Mean Corpuscular HGB Conc 31.7 % (32.0-36.0); Mean Corpuscular Hemoglobin 25.6 pg (27.0-34.0); Mean Corpuscular Volume 80.7 fL (80.0-100.0); Mono % (Auto) 7.2 % (0.0-8.0); Neut # (Auto) 11.7 th/mm3 (1.8-7.7); Neut % (Auto) 81.5 % (16.0-70.0); Platelet Count 571 th/mm3 (150-450); Red Blood Count 3.39 mil/mm3 (4.00-5.30); Red Cell Distribution Width 15.7 % (11.6-17.2); White Blood Count 14.4 th/mm3 (4.0-11.0)
[2018-09-09] MEDS: Insulin NovoLOG Aspart Correctional Sugar Inj SQ SCH ×4 (07:32→22:12)
[2018-09-09 07:56] LABS: Anion Gap 9 meq/L (5-15); Blood Urea Nitrogen 13 mg/dL (7-18); Calcium 8.5 mg/dL (8.5-10.1); Carbon Dioxide 26.3 meq/L (21.0-32.0); Chloride 112 meq/L (98-107); Glomerular Filtration Rate Greater Than 89 mL/min (>89); Glucose,Random 88 mg/dL (74-106); Sodium 147 meq/L (136-145)
[2018-09-09 08:10] LABS: Potassium 2.9 meq/L (3.5-5.1)
--- NOTE | 2018-09-09 09:13 | P.PNVS ---
Subjective Post Op Day #: 1 Procedure: L groin exploration Subjective/Hospital Course: Doing well, pain well controlled Objective Vital Signs / I&O: Vital Signs 09/08/18 09:47 09/08/18 09:55 09/08/18 13:26 Temperature 97.8 F 98.8 F Pulse Rate 68 89 Respiratory Rate 20 21 Blood Pressure 118/59 L 140/70 Pulse Oximetry 97 96 94 L 09/08/18 13:29 09/08/18 13:30 09/08/18 13:33 Temperature Pulse Rate 90 88 87 Respiratory Rate 24 23 24 Blood Pressure 145/93 H Pulse Oximetry 97 99 100 09/08/18 13:45 09/08/18 13:48 09/08/18 14:00 Temperature Pulse Rate 92 H 89 92 H Respiratory Rate 22 24 24 Blood Pressure 125/55 L 128/53 L Pulse Oximetry 80 L 99 09/08/18 14:01 09/08/18 14:15 09/08/18 14:30 Temperature 98.3 F Pulse Rate 92 H 93 H 95 H Respiratory Rate 30 H 21 18 Blood Pressure 106/57 L 102/51 L Pulse Oximetry 99 95 94 L 09/08/18 16:33 09/08/18 16:49 09/08/18 19:03 Temperature 97.3 F L Pulse Rate 95 H 80 Respiratory Rate 16 18 18 Blood Pressure 146/65 H Pulse Oximetry 96 09/08/18 20:00 09/08/18 20:52 09/09/18 00:00 Temperature 98 F 98.2 F Pulse Rate 97 H 89 91 H Respiratory Rate 20 20 18 Blood Pressure 139/63 109/58 L Pulse Oximetry 92 L 93 L 09/09/18 02:56 09/09/18 04:00 09/09/18 08:00 Temperature 98.9 F Pulse Rate 101 H Respiratory Rate 18 18 Blood Pressure 156/94 H Pulse Oximetry 94 L 95 09/09/18 08:03 Temperature Pulse Rate 94 H Respiratory Rate 16 Blood Pressure Pulse Oximetry Intake & Output 09/08/18 09/09/18 09/09/18 18:59 06:59 18:59 Intake Total 1000 / 1000 390 / 390 Output Total 20 / 20 Balance 980 / 980 390 / 390 Weight 57.1 kg Intake: IV 400 / 400 150 / 150 NS Inj 1,000 ML @ 70 mls/hr IV. 250 / 250 CONT .[id number] [facility] Rx#:[id number] Zosyn 3.375 GM Premix 3.375 gm 50 / 50 150 / 150 In 50 ml @ 100 mls/hr IV.SIG Q6H [facility] Rx#:[id number] KCl 20 mEq Premix Inj 20 meq In 100 / 100 100 ml @ 50 mls/hr IV.SIG Q2H [facility] Rx#:[id number] Oral 240 / 240 Anesthesia Amount 600 / 600 Output: Estimated Blood Loss Other: # Voids 1 Date of Last Bowel Movement 09/08/18 09/08/18 # Bowel Movements 2 Exam: Left AKA dressing CDI Left groin vac CDI Laboratory Results - last 24 hr 09/08/18 09/08/18 09/08/18 10:00 13:41 18:28 WBC RBC Hgb Hct MCV MCH MCHC RDW Plt Count MPV Neut % (Auto) Lymph % (Auto) [place] % (Auto) Eos % (Auto) Baso % (Auto) Neut # (Auto) Lymph # (Auto) [place] # (Auto) Eos # (Auto) Baso # (Auto) WBC Differential Differential Comment Sodium Potassium Chloride Carbon Dioxide Anion Gap BUN Creatinine Estimated GFR POC Glucose 177 H 138 H 228 H Random Glucose Calcium 09/08/18 09/09/18 09/09/18 20:35 06:48 06:48 WBC 14.4 H RBC 3.39 L Hgb 8.7 L Hct 27.3 L MCV 80.7 MCH 25.6 L MCHC 31.7 L RDW 15.7 Plt Count 571 H MPV 9.0 Neut % (Auto) 81.5 H Lymph % (Auto) 10.5 [place] % (Auto) 7.2 Eos % (Auto) 0.3 Baso % (Auto) 0.5 Neut # (Auto) 11.7 H Lymph # (Auto) 1.5 [place] # (Auto) 1.0 H Eos # (Auto) 0.0 Baso # (Auto) 0.1 WBC Differential . Differential Comment Auto diff final Sodium 147 H Potassium 2.9 L* Chloride 112 H Carbon Dioxide 26.3 Anion Gap 9 BUN 13 Creatinine 0.55 Estimated GFR Greater than 89 POC Glucose 279 H Random Glucose 88 Calcium 8.5 09/09/18 07:30 WBC RBC Hgb Hct MCV MCH MCHC RDW Plt Count MPV Neut % (Auto) Lymph % (Auto) [place] % (Auto) Eos % (Auto) Baso % (Auto) Neut # (Auto) Lymph # (Auto) [place] # (Auto) Eos # (Auto) Baso # (Auto) WBC Differential Differential Comment Sodium Potassium Chloride Carbon Dioxide Anion Gap BUN Creatinine Estimated GFR POC Glucose 97 Random Glucose Calcium Assessment and Plan - Assessment (1) PAD (peripheral artery disease) Code(s): I73.9 - Peripheral vascular disease, unspecified Status: Acute - Plan POD#1 S/P AKA Pain control PT/Rehab eval Dressing change POD #3 Bill Jimenez MD [id number]
--- NOTE | 2018-09-09 09:16 | P.PNIM ---
Subjective Interval history: Pt very confused this morning She is oriented to self only. 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 Physical Exam Vital signs: Last Vital Signs Temp 98.9 F 09/09/18 04:00 Pulse 94 H 09/09/18 08:03 Resp 16 09/09/18 08:03 BP 156/94 H 09/09/18 04:00 Pulse Ox 95 09/09/18 08:00 Narrative: General: Awake, alert, oriented to self only, confused SKIN: RLE shallow ulcer on the lateral leg. Pt with small pressure wound on her gluteal cleft as well. Cardiac: Reg Chest: course bs bilaterally, poor inspiratory effort Abd: s/nt/bs Ext: Left BKA, bandages are c/d/i Results Labs CBC & Chem 7: 09/16/18 05:48 09/16/18 05:48 Imaging Aorta w/Runoff CTA 08/27/18 00:00 CONCLUSION: 1. Extensive arteriosclerotic calcification with diffuse areas of mild luminal narrowing both inflow and outflow. There is one segment in the proximal left superficial femoral artery with greater than 70% narrowing. 2. Bilateral adrenal masses, stable from 2017. Extremity Arterial Study 08/27/18 00:00 CONCLUSION: 1. Severely decreased ankle-brachial indices bilaterally also reflected on toe brachial indices. Findings are consistent with severe bilateral lower extremity arterial disease, left greater than right. Abdomen X-Ray 08/30/18 06:00 CONCLUSION: Negative KUB. Chest X-Ray 09/01/18 00:00 CONCLUSION: Mild left base parenchymal opacity. Head CT 09/01/18 00:00 CONCLUSION: 1. No acute infarct, acute hemorrhage, midline shift or extra-axial fluid collections. 2. Moderate periventricular and subcortical white matter small vessel ischemic changes bilaterally. 3. Mild cerebral atrophy. 4. 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 . Chest X-Ray 09/07/18 00:00 CONCLUSION: Stable chest without evidence of consolidating airspace disease. COPD Assessment and Plan Assessment (1) PAD (peripheral artery disease): Code(s): I73.9 - Peripheral vascular disease, unspecified Status: Acute Plan Nonhealing bilateral LE wounds (L worse than R) Severe PAD - Pt is a 72 y/o WF with HTN, Diabetes mellitus, CAD/Cardiomyopathy, hyperlipidemia, depression, Lumbar DDD/post-polio syndrome, aortic atherosclerosis, COPD/asthma and severe PAD. Per outpt records pt had a previous left open common femoral endarterectomy and ELHAM placement left common iliac to external iliac by Dr. Viv Meneses at [facility] on 05/21/18. Pt has had issues with wound healing which was not improved after this intervention. She has been receiving local wound care with [facility] wound care/Dr Best's office. She was seen at wound care office today and was recommended to report to the ED for further evaluation and antibiotics for two noted wounds, one on the right lateral leg and the other is a large LLE deep ulceration on the lateral aspect of the left lower leg with foul-smelling drainage and surrounding erythema. - WBC 8.9 (08/26), 10.7 (08/27), 9.3 (08/28) - Blood Cx (08/26) --> NGTD - Wound Gram stain (08/26) --> may gram negative rods. Many pleomorphic gram positive rods. - Wound Cx (08/26) --> MSSA - Vancomycin ( - 08/29) - Zosyn (08/26 - 08/29) - oxacillin (08/29 - 09/02) - Zosyn resumed (09/02 - present) - Appreciate input from Wound Care - Case d/w Dr. Frank (08/27). - Pt may require wound debridement in the OR - Case d/w Dr. Mauricio (08/30). - on 11/18/17 Pt underwent b/l LE revascularization procedure with Dr. Viv Meneses at -[place] - nearly occlusive left common femoral artery, high-grade proximal external iliac artery stenosis, moderate left common iliac artery disease however NO high grade stenosis. - placement of left distal common iliac to external ilac 6x40 self expanding stent - right common iliac artery with high-grade stenosis at its origin patent external iliac stent with moderate instent stenosis moderate to severe right common femoral disease - Plavix - [place] increased to 10/325 Q4H PRN pain (home med) --> decrease back to 6h scheduled - Pt hd been planned for re-do LEFT groin reconstruction and LLE angiogram with endovascular intervention with Dr. Mauricio on Saturday09/01/18. She was taken to the OR but the scarring was extensive in the left leg and not reconstructable. - Pt/family met with Dr Mauricio on 09/03 and at that time were in agreement for LEFT AKA which was planned for 09/04, but now the pts daughter is not wanting to proceed with surgery so this has been placed on hold until the entire family can come to a decision about how best to proceed. - Pt was again scheduled for surgery 09/05 but daughter and family placed on hold again. - We had 3 of our Vascular surgeons agree she needs AKA and also Dr Mauricio spoke to a surgeon in [place] at the request of family who I'm told also agrees. Family wanted yet another recommendation and so Vascular consulted Ortho. The Orthopedic surgeon who saw the patient on 09/05 also agreed that AKA was most appropriate. - Per discussion with Dr. Jimenez who spoke extensively with the pts again on 09/06/18, the pt is tentatively planned for left AKA on Saturday. - Discussed with the pts at bedside and nursing staff that the pt needs to try to cough and clear out her secretions more. Her WBC count is increased to 15 today. She is starting to have some intermittent fevers and this could be related to atelectasis vs. developing pulmonary infection vs. worsening status of her LLE/infection - Check CXR (09/07/18) -->Stable chest without evidence of consolidating airspace disease and COPD - Cont. Zosyn. - Glucerna added to her meals as she is drinking without difficulty but not eating much. Explained to the pts that without adequate nutrition she will have a difficult time with the healing process. - She has had some fevers for the last few days intermittently, likely related to the left leg ischemia but also chest congestion. The chest congestion is likely due to poor inspiratory effort. Cont. to encouraging deep cough, IS, mucolytic, nebs. Cont broad abx with zosyn. 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 - Increased confusion on 09/09/18. Will continue to monitor clinical status closely - Pt and understand post op risk of poor wound healing and persistent decline. Pt still may ultimately benefit from hospice if surgery unsuccessful. - DVT prophylaxis with Lovenox Delirium - Pt likely has underlying cognitive deficits/mild dementia based on my discussion with family. - Apparent superimposed delirium likely MF. 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 no acute cva - Urine cx with no growth in 48 hours. - meds/abx adjusted. - Post-op her mental status is decompensated, she is quite confused and oriented only to self on 09/09/18, Cont. to monitor closely HTN - Lisinopril 10mg BID Diabetes mellitus - NovoLog SSI - Accu checks - Hold OHA - Levemir 5units PM & 10 units qAM Cardiomyopathy, EF 35-40% on echo in 12/2017 - Cont. Lasix and KCl at home dose - Replace potassium as needed. - monitor labs Depression - Cont. home meds COPD Asthma - Cont. home meds - Schedule Duonebs Q6H WA and Duonebs PRN - Mucinex - Acapella/IS - Pulmonary toileting - Cont. Zosyn Progress Note: Quality VTE Deep Vein Thrombosis/Pulmonary Embolism Present on Admission: No
[2018-09-09] MEDS: Potassium Chloride 25 MEQ Effervescent Tablet PO SCH ×2 (09:59→12:01)
[2018-09-09] MEDS: Enoxaparin Inj 30 MG/0.3 ML Syringe SQ SCH (10:01)
[2018-09-09] MEDS: Insulin Detemir Inj 1,000 UNIT/10 ML Vial SQ SCH ×2 (10:01→22:12)
[2018-09-09] MEDS: guaiFENesin 600 MG ER Tablet PO SCH ×2 (10:02→22:12)
[2018-09-09] MEDS: Furosemide 20 MG Tablet PO SCH (10:02)
[2018-09-09] MEDS: ARIPiprazole 2 MG Tablet PO SCH (10:02)
[2018-09-09] MEDS: Lisinopril 10 MG Tablet PO SCH ×2 (10:02→22:12)
[2018-09-09] MEDS: Gabapentin 300 MG Capsule PO SCH ×2 (10:03→22:11)
[2018-09-09] MEDS: Nystatin Liq 500,000 UNIT/5 ML UDC SWISH-SWAL SCH ×5 (10:03→22:13)
[2018-09-09] MEDS: Nystatin 100,000 UNITS/GM Powder 15 GM Bottle TOPICAL SCH ×5 (10:03→22:14)
[2018-09-09] MEDS: Tolterodine Tartrate LA 4 MG Capsule PO SCH (10:03)
[2018-09-09] MEDS: Senna/Docusate Sodium 8.6/50 MG Tablet PO SCH ×2 (10:15→22:13)
[2018-09-10] MEDS: Piperacil/Tazo 3.375 GM Premix 3.375 GM/50 ML PIGGYBACK IV.SIG SCH ×4 (05:36→23:12)
--- NOTE | 2018-09-10 07:10 | XR ---
EXAM DATE: 09/10/2018 7:07 AM EST AGE/SEX: 72 years / Female INDICATIONS: Cough. CLINICAL DATA: This is the patient's subsequent encounter. Patient reports that signs and symptoms h ave been present for 3 days and indicates a pain score of Nonresponsive. MEDICAL/SURGICAL HISTORY: . Congestive heart failure. Chronic obstructive pulmonary disease. Di abetes. Cholecystectomy. COMPARISON: [facility] [place], CHEST 1V SINGLE AP, 09/07/2018. . FINDINGS: A single AP view of the chest demonstrates the lungs to be symmetrically aerated without evidence of mass, infiltrate or effusion. The cardiomediastinal contours are unremarkable. Osseous structures a re intact. CONCLUSION: No acute cardiopulmonary process. Electronically signed by: Anup Huggins MD Board Certified Radiologist 09/10/2018 7:08 AM EST
[2018-09-10 07:33] LABS: Baso % (Auto) 0.3 % (0.0-2.0); Eos % (Auto) 0.2 % (0.0-4.0); Hematocrit 27.3 % (35.0-46.0); Hemoglobin 8.7 gm/dL (11.6-15.3); Lymph # (Auto) 1.5 th/mm3 (1.0-4.8); Lymph % (Auto) 8.8 % (9.0-44.0); Mean Corpuscular HGB Conc 31.8 % (32.0-36.0); Mean Corpuscular Hemoglobin 25.4 pg (27.0-34.0); Mean Corpuscular Volume 79.7 fL (80.0-100.0); Mean Platelet Volume 9.1 fL (7.0-11.0); Mono # (Auto) 1.3 th/mm3 (0.0-0.9); Mono % (Auto) 7.7 % (0.0-8.0); Neut # (Auto) 14.4 th/mm3 (1.8-7.7); Platelet Count 548 th/mm3 (150-450); Red Blood Count 3.43 mil/mm3 (4.00-5.30); Red Cell Distribution Width 16.1 % (11.6-17.2); White Blood Count 17.3 th/mm3 (4.0-11.0)
[2018-09-10 07:59] LABS: Anion Gap 9 meq/L (5-15); Blood Urea Nitrogen 7 mg/dL (7-18); Calcium 8.5 mg/dL (8.5-10.1); Carbon Dioxide 25.8 meq/L (21.0-32.0); Chloride 108 meq/L (98-107); Glomerular Filtration Rate Greater Than 89 mL/min (>89); Glucose,Random 98 mg/dL (74-106); Magnesium 1.4 mg/dL (1.5-2.5); Potassium 3.2 meq/L (3.5-5.1); Sodium 143 meq/L (136-145)
[2018-09-10] MEDS: Gabapentin 300 MG Capsule PO SCH ×2 (09:08→21:01)
[2018-09-10] MEDS: Nystatin Liq 500,000 UNIT/5 ML UDC SWISH-SWAL SCH ×4 (09:09→21:01)
[2018-09-10] MEDS: Furosemide 20 MG Tablet PO SCH (09:09)
[2018-09-10] MEDS: Lisinopril 10 MG Tablet PO SCH ×2 (09:09→21:01)
[2018-09-10] MEDS: ARIPiprazole 2 MG Tablet PO SCH (09:09)
[2018-09-10] MEDS: Tolterodine Tartrate LA 4 MG Capsule PO SCH (09:09)
[2018-09-10] MEDS: Enoxaparin Inj 30 MG/0.3 ML Syringe SQ SCH (09:09)
[2018-09-10] MEDS: Senna/Docusate Sodium 8.6/50 MG Tablet PO SCH ×2 (09:10→21:02)
[2018-09-10] MEDS: Nystatin 100,000 UNITS/GM Powder 15 GM Bottle TOPICAL SCH ×4 (09:11→23:13)
[2018-09-10] MEDS: guaiFENesin 600 MG ER Tablet PO SCH ×2 (09:18→21:01)
[2018-09-10] MEDS: Insulin NovoLOG Aspart Correctional Sugar Inj SQ SCH ×4 (09:19→21:02)
[2018-09-10] MEDS: Insulin Detemir Inj 1,000 UNIT/10 ML Vial SQ SCH ×2 (09:22→21:01)
[2018-09-10] MEDS ORDERED: Potassium Chloride 25 MEQ Effervescent Tablet PO ONE ×2 (09:23→14:00)
--- NOTE | 2018-09-10 10:30 | P.PNVS ---
Subjective Subjective/Hospital Course: Doing well, pain well controlled Objective Vital Signs / I&O: Vital Signs 09/09/18 12:00 09/09/18 12:50 09/09/18 16:00 Temperature 98.3 F 98.9 F Pulse Rate 103 H 90 112 H Respiratory Rate 17 18 18 Blood Pressure 123/56 L 105/53 L Pulse Oximetry 93 L 97 09/09/18 20:00 09/10/18 00:00 09/10/18 08:00 Temperature 98.6 F 97.7 F 99.1 F Pulse Rate 112 H 110 H 106 H Respiratory Rate 21 17 17 Blood Pressure 153/90 H 143/73 H 144/83 H Pulse Oximetry 94 L 95 94 L Intake & Output 09/09/18 09/10/18 09/10/18 18:59 06:59 18:59 Intake Total 100 / 100 280 / 280 Output Total 1000 / 1000 Balance 100 / 100 -720 / -720 Weight 57 kg Intake: IV 100 / 100 100 / 100 Zosyn 3.375 GM Premix 3.375 gm 100 / 100 100 / 100 In 50 ml @ 100 mls/hr IV.SIG Q6H [facility] Rx#:[id number] Oral 180 / 180 Output: Urine 1000 / 1000 Other: Date of Last Bowel Movement 09/09/18 # Bowel Movements 1 Physical Exam: LLE dressing CDI Laboratory Results - last 24 hr 09/09/18 09/09/18 09/09/18 12:10 16:21 22:04 WBC RBC Hgb Hct MCV MCH MCHC RDW Plt Count MPV Neut % (Auto) Lymph % (Auto) [place] % (Auto) Eos % (Auto) Baso % (Auto) Neut # (Auto) Lymph # (Auto) [place] # (Auto) Eos # (Auto) Baso # (Auto) WBC Differential Differential Comment Sodium Potassium Chloride Carbon Dioxide Anion Gap BUN Creatinine Estimated GFR POC Glucose 309 H 192 H 205 H Random Glucose Calcium Magnesium 09/10/18 09/10/18 09/10/18 06:02 06:02 09:06 WBC 17.3 H RBC 3.43 L Hgb 8.7 L Hct 27.3 L MCV 79.7 L MCH 25.4 L MCHC 31.8 L RDW 16.1 Plt Count 548 H MPV 9.1 Neut % (Auto) 83.0 H Lymph % (Auto) 8.8 L [place] % (Auto) 7.7 Eos % (Auto) 0.2 Baso % (Auto) 0.3 Neut # (Auto) 14.4 H Lymph # (Auto) 1.5 [place] # (Auto) 1.3 H Eos # (Auto) 0.0 Baso # (Auto) 0.0 WBC Differential . Differential Comment Auto diff final Sodium 143 Potassium 3.2 L Chloride 108 H Carbon Dioxide 25.8 Anion Gap 9 BUN 7 Creatinine 0.60 Estimated GFR Greater than 89 POC Glucose 197 H Random Glucose 98 Calcium 8.5 Magnesium 1.4 L Impressions Chest X-Ray 09/10/18 00:00 CONCLUSION: No acute cardiopulmonary process. Assessment and Plan - Assessment (1) PAD (peripheral artery disease) Code(s): I73.9 - Peripheral vascular disease, unspecified Status: Acute - Plan POD#2 S/P AKA dressing change in AM Bill Jimenez MD [phone]
[2018-09-10] MEDS: Mag Sulf 1 gm/100 ml Premix 100 ML IV.SIG SCH ×2 (10:49→14:35)
--- NOTE | 2018-09-10 12:02 | P.DIET ---
Nutritional Evaluation Type of nutrition evaluation: initial Nutrition screening: Poor PO Intake Subjective Subjective Comments: Has some confusion. Tolerating 50-75% clear liquids. Objective - Diagnosis L leg ulcer, cellulitis - Objective Part of Body Amputated: Left above knee (12%) Body Weight Used for Calculations: Actual (57 kg) Energy Needs - Lower Range (kCal/kg): 28 Energy Needs - Upper Range (kCal/kg): 32 Lower Limit kCal/kg (kCals): 1,596 Upper Limit kCal/kg (kCals): 1,824 Lower Limit Protein Factor (Grams per Kg): 1.2 Upper Limit Protein Factor (Grams per Kg): 1.6 Lower Protein Needs (Protein): 68 Upper Protein Needs (Protein): 91 Fluid Factor (ml/kg): 32 Estimated Fluid Needs (ml): 1,824 Dietitian Reviewed in Medical Record: Current diet, Curent medications, Intake & Output, Labs, Medical history Diet Order: Clear liquids Oral Diet Intake Amount: Fair 50-75% Assessment Assessment: Pt is s/p L AKA (09/08) and diet remains clear liquids, post surgery. Recommend advance to 1800 ADA as able with Glucerna Supplements bid. Pt would also benefit from the addition of a daily MVI/min. RD following. Recommendations: 1. Advance diet to 1800 ADA when ok with Surgery 2. Glucerna Shakes bid 3. Please order MVI/min Dietitian to Monitor: Lab values, Glucose level, Supplement acceptance, Intake & Output, Diet tolerance, Weight change, PO Intake, Diet advancement, Wound/ skin status, Medical course
--- NOTE | 2018-09-10 12:39 | P.PNIM ---
Subjective Interval history: No new complaints. Pt denies SOB. Pt denies fever. Pain is controlled with prn norco Physical Exam Vital signs: Last Vital Signs Temp 99.1 F 09/10/18 08:00 Pulse 106 H 09/10/18 08:00 Resp 17 09/10/18 08:00 BP 144/83 H 09/10/18 08:00 Pulse Ox 94 L 09/10/18 08:00 Narrative: General: A&Ox 2 SKIN: Pt with small pressure wound on her gluteal cleft Cardiac: Reg Chest: clear x b/l Abd: s/nt/bs Ext: Left BKA, bandages are c/d/i Results Labs CBC & Chem 7: 09/13/18 04:49 09/13/18 04:49 Assessment and Plan Assessment (1) PAD (peripheral artery disease): Code(s): I73.9 - Peripheral vascular disease, unspecified Status: Acute Plan Nonhealing bilateral LE wounds (L worse than R) Severe PAD - Pt is a 72 y/o WF with HTN, Diabetes mellitus, CAD/Cardiomyopathy, hyperlipidemia, depression, Lumbar DDD/post-polio syndrome, aortic atherosclerosis, COPD/asthma and severe PAD. Per outpt records pt had a previous left open common femoral endarterectomy and ELHAM placement left common iliac to external iliac by Dr. Viv Meneses at [facility] on 05/21/18. Pt has had issues with wound healing which was not improved after this intervention. She has been receiving local wound care with [facility] wound care/Dr Best's office. She was seen at wound care office today and was recommended to report to the ED for further evaluation and antibiotics for two noted wounds, one on the right lateral leg and the other is a large LLE deep ulceration on the lateral aspect of the left lower leg with foul-smelling drainage and surrounding erythema. - WBC 8.9 (08/26), 10.7 (08/27), 9.3 (08/28) - Blood Cx (08/26) --> NGTD - Wound Gram stain (08/26) --> may gram negative rods. Many pleomorphic gram positive rods. - Wound Cx (08/26) --> MSSA - Vancomycin ( - 08/29) - Zosyn (08/26 - 08/29) - oxacillin (08/29 - 09/02) - Zosyn resumed (09/02 - present) - Appreciate input from Wound Care - Case d/w Dr. Frank (08/27). - Pt may require wound debridement in the OR - Case d/w Dr. Mauricio (08/30). - on 11/18/17 Pt underwent b/l LE revascularization procedure with Dr. Viv Meneses at [facility] - nearly occlusive left common femoral artery, high-grade proximal external iliac artery stenosis, moderate left common iliac artery disease however NO high grade stenosis. - placement of left distal common iliac to external ilac 6x40 self expanding stent - right common iliac artery with high-grade stenosis at its origin patent external iliac stent with moderate instent stenosis moderate to severe right common femoral disease - [place] increased to 10/325 Q4H PRN pain (home med) --> decrease back to 6h scheduled - Pt hd been planned for re-do LEFT groin reconstruction and LLE angiogram with endovascular intervention with Dr. Mauricio on Saturday09/01/18. She was taken to the OR but the scarring was extensive in the left leg and not reconstructable. - Pt/family met with Dr Mauricio on 09/03 and at that time were in agreement for LEFT AKA which was planned for 09/04, but now the pts daughter is not wanting to proceed with surgery so this has been placed on hold until the entire family can come to a decision about how best to proceed. - Pt was again scheduled for surgery 09/05 but daughter and family placed on hold again. - We had 3 of our Vascular surgeons agree she needs AKA and also Dr Mauricio spoke to a surgeon in [place] at the request of family who I'm told also agrees. Family wanted yet another recommendation and so Vascular consulted Ortho. The Orthopedic surgeon who saw the patient on 09/05 also agreed that AKA was most appropriate. - Per discussion with Dr. Jimenez who spoke extensively with the pts again on 09/06/18, the pt is tentatively planned for left AKA on Saturday. - Discussed with the pts at bedside and nursing staff that the pt needs to try to cough and clear out her secretions more. Her WBC count is increased to 15 today. She is starting to have some intermittent fevers and this could be related to atelectasis vs. developing pulmonary infection vs. worsening status of her LLE/infection - Check CXR (09/07/18) -->Stable chest without evidence of consolidating airspace disease and COPD - Glucerna added to her meals as she is drinking without difficulty but not eating much. Explained to the pts that without adequate nutrition she will have a difficult time with the healing process. - She has had some fevers for the last few days intermittently, likely related to the left leg ischemia but also chest congestion. The chest congestion is likely due to poor inspiratory effort. Cont. to encouraging deep cough, IS, mucolytic, nebs. 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 - Increased confusion on 09/09/18. Will continue to monitor clinical status closely - Pt and understand post op risk of poor wound healing and persistent decline. Pt still may ultimately benefit from hospice if surgery unsuccessful. - Per Vascular Surgery, first post op dressing change 09/11/18 - appreciate input from dietary - advance diet to full liquid - glucerna shakes - MVI - DVT prophylaxis with Lovenox Delirium - Pt likely has underlying cognitive deficits/mild dementia based on my discussion with family. - Apparent superimposed delirium likely MF. 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 no acute cva - Urine cx with no growth in 48 hours. - meds/abx adjusted. - Post-op her mental status is decompensated, she is quite confused and oriented only to self on 09/09/18, Cont. to monitor closely HTN - Lisinopril 10mg BID Diabetes mellitus - NovoLog SSI - Accu checks - Hold OHA - Levemir 5units PM & 10 units qAM Cardiomyopathy, EF 35-40% on echo in 12/2017 - Cont. Lasix and KCl at home dose - Replace potassium as needed. - monitor labs Depression - Cont. home meds COPD Asthma - Cont. home meds - Schedule Duonebs Q6H [place] and Duonebs PRN - Mucinex - Acapella/IS - Pulmonary toileting - Cont. Zosyn Progress Note: Quality VTE Deep Vein Thrombosis/Pulmonary Embolism Present on Admission: No
[2018-09-10] MEDS ORDERED: Mag Sulf 1 gm/100 ml Premix 100 ML IV.SIG SCH (14:00)
[2018-09-11] MEDS: Piperacil/Tazo 3.375 GM Premix 3.375 GM/50 ML PIGGYBACK IV.SIG SCH ×2 (05:10→12:20)
[2018-09-11 06:16] LABS: Baso % (Auto) 0.1 % (0.0-2.0); Eos # (Auto) 0.1 th/mm3 (0.0-0.4); Eos % (Auto) 0.4 % (0.0-4.0); Hematocrit 26.3 % (35.0-46.0); Hemoglobin 8.5 gm/dL (11.6-15.3); Lymph % (Auto) 10.6 % (9.0-44.0); Mean Corpuscular HGB Conc 32.5 % (32.0-36.0); Mean Corpuscular Hemoglobin 25.7 pg (27.0-34.0); Mean Corpuscular Volume 79.2 fL (80.0-100.0); Mean Platelet Volume 9.2 fL (7.0-11.0); Mono # (Auto) 1.2 th/mm3 (0.0-0.9); Mono % (Auto) 6.4 % (0.0-8.0); Neut # (Auto) 15.4 th/mm3 (1.8-7.7); Neut % (Auto) 82.5 % (16.0-70.0); Platelet Count 566 th/mm3 (150-450); Red Blood Count 3.32 mil/mm3 (4.00-5.30); White Blood Count 18.7 th/mm3 (4.0-11.0)
[2018-09-11 06:30] LABS: Calcium 8.8 mg/dL (8.5-10.1); Carbon Dioxide 24.7 meq/L (21.0-32.0); Magnesium 2.3 mg/dL (1.5-2.5); Potassium 3.5 meq/L (3.5-5.1)
[2018-09-11] MEDS: Tolterodine Tartrate LA 4 MG Capsule PO SCH (09:43)
[2018-09-11] MEDS: Senna/Docusate Sodium 8.6/50 MG Tablet PO SCH ×2 (09:43→21:36)
[2018-09-11] MEDS: Furosemide 20 MG Tablet PO SCH (09:43)
[2018-09-11] MEDS: ARIPiprazole 2 MG Tablet PO SCH (09:43)
[2018-09-11] MEDS: guaiFENesin 600 MG ER Tablet PO SCH ×2 (09:43→21:28)
[2018-09-11] MEDS: Lisinopril 10 MG Tablet PO SCH ×2 (09:44→21:36)
[2018-09-11] MEDS: Gabapentin 300 MG Capsule PO SCH ×2 (09:44→21:27)
[2018-09-11] MEDS: Insulin Detemir Inj 1,000 UNIT/10 ML Vial SQ SCH ×2 (09:44→21:32)
[2018-09-11] MEDS: Enoxaparin Inj 30 MG/0.3 ML Syringe SQ SCH (09:44)
[2018-09-11] MEDS: Insulin NovoLOG Aspart Correctional Sugar Inj SQ SCH ×4 (09:44→21:32)
[2018-09-11] MEDS: Nystatin Liq 500,000 UNIT/5 ML UDC SWISH-SWAL SCH ×4 (09:44→21:27)
[2018-09-11] MEDS: Nystatin 100,000 UNITS/GM Powder 15 GM Bottle TOPICAL SCH ×4 (09:45→21:34)
--- NOTE | 2018-09-11 12:53 | P.PNVS ---
Subjective Subjective/Hospital Course: Doing well, pain well controlled Objective Vital Signs / I&O: Vital Signs 09/10/18 16:00 09/10/18 20:00 09/10/18 20:07 Temperature 99.9 F H 97.6 F Pulse Rate 100 H 99 H Respiratory Rate 17 17 Blood Pressure 139/63 104/51 L Pulse Oximetry 96 97 96 09/11/18 00:00 09/11/18 08:00 09/11/18 12:00 Temperature 98.2 F 98.6 F 97.8 F Pulse Rate 99 H 99 H 100 H Respiratory Rate 17 17 20 Blood Pressure 130/58 L 131/61 119/53 L Pulse Oximetry 95 96 94 L Intake & Output 09/10/18 09/11/18 09/11/18 18:59 06:59 18:59 Intake Total 1525 / 1525 630 / 630 Balance 1525 / 1525 630 / 630 Weight 57 kg Intake: IV 1250 / 1250 150 / 150 NS + KCl 20 mEq Inj 1,000 ML @ 1000 / 1000 42 mls/hr IV.CONT .[id number] [facility] Rx#:[id number] Magnesium Sulfate 1 gm/D5W 100 200 / 200 ml Premix 100 ML @ 100 mls/hr IV.SIG Q1H [facility] Rx#:[id number] Zosyn 3.375 GM Premix 3.375 gm 50 / 50 150 / 150 In 50 ml @ 100 mls/hr IV.SIG Q6H [facility] Rx#:[id number] Oral 275 / 275 480 / 480 Other: # Voids 5 2 # Bowel Movements 3 1 Physical Exam: left AKA wound is CDI , there is area of ecchymosis on the medial aspect of the wound Laboratory Results - last 24 hr 09/10/18 09/10/18 09/10/18 14:42 18:13 20:50 WBC RBC Hgb Hct MCV MCH MCHC RDW Plt Count MPV Neut % (Auto) Lymph % (Auto) [place] % (Auto) Eos % (Auto) Baso % (Auto) Neut # (Auto) Lymph # (Auto) [place] # (Auto) Eos # (Auto) Baso # (Auto) WBC Differential Differential Comment Sodium Potassium Chloride Carbon Dioxide Anion Gap BUN Creatinine Estimated GFR POC Glucose 327 H 167 H 144 H Random Glucose Calcium Magnesium 09/11/18 09/11/18 09/11/18 00:25 04:33 04:33 WBC 18.7 H RBC 3.32 L Hgb 8.5 L Hct 26.3 L MCV 79.2 L MCH 25.7 L MCHC 32.5 RDW 16.0 Plt Count 566 H MPV 9.2 Neut % (Auto) 82.5 H Lymph % (Auto) 10.6 [place] % (Auto) 6.4 Eos % (Auto) 0.4 Baso % (Auto) 0.1 Neut # (Auto) 15.4 H Lymph # (Auto) 2.0 [place] # (Auto) 1.2 H Eos # (Auto) 0.1 Baso # (Auto) 0.0 WBC Differential . Differential Comment Auto diff final Sodium 141 Potassium 3.5 Chloride 106 Carbon Dioxide 24.7 Anion Gap 10 BUN 10 Creatinine 0.70 Estimated GFR 82 L POC Glucose 284 H Random Glucose 185 H Calcium 8.8 Magnesium 2.3 D 09/11/18 09/11/18 09/11/18 05:44 07:53 12:16 WBC RBC Hgb Hct MCV MCH MCHC RDW Plt Count MPV Neut % (Auto) Lymph % (Auto) [place] % (Auto) Eos % (Auto) Baso % (Auto) Neut # (Auto) Lymph # (Auto) [place] # (Auto) Eos # (Auto) Baso # (Auto) WBC Differential Differential Comment Sodium Potassium Chloride Carbon Dioxide Anion Gap BUN Creatinine Estimated GFR POC Glucose 220 H 190 H 381 H Random Glucose Calcium Magnesium Impressions Chest X-Ray 09/10/18 00:00 CONCLUSION: No acute cardiopulmonary process. Assessment and Plan - Assessment (1) PAD (peripheral artery disease) Code(s): I73.9 - Peripheral vascular disease, unspecified Status: Acute - Plan POD#3 S/P AKA Overall left AKA wound is healing appropriately. There is an area of ecchymosis involving the medial aspect of the wound. Will follow clinically. Stable for discharge from vascular surgery standpoint. Bill Jimenez MD [id number]
--- NOTE | 2018-09-11 14:00 | P.PNIM ---
Subjective Interval history: DRAFT NOTE Pt denies fever Tmax 99.4 (1/2 at 1600) Pt denies abodminal pain, nausea, or vomiting. Pt is tolerating PO intake. Physical Exam Vital signs: Last Vital Signs Temp 97.8 F 09/11/18 12:00 Pulse 100 H 09/11/18 12:00 Resp 20 09/11/18 12:00 BP 119/53 L 09/11/18 12:00 Pulse Ox 94 L 09/11/18 12:00 Narrative: General: A&Ox 2 SKIN: Pt with small pressure wound on her gluteal cleft Cardiac: Reg Chest: clear x b/l Abd: s/nt/bs Ext: Left BKA, bandages are c/d/i Results Labs CBC & Chem 7: 09/13/18 04:49 09/13/18 04:49 Assessment and Plan Assessment (1) PAD (peripheral artery disease): Code(s): I73.9 - Peripheral vascular disease, unspecified Status: Acute Plan Nonhealing bilateral LE wounds (L worse than R) Severe PAD - Pt is a 72 y/o WF with HTN, Diabetes mellitus, CAD/Cardiomyopathy, hyperlipidemia, depression, Lumbar DDD/post-polio syndrome, aortic atherosclerosis, COPD/asthma and severe PAD. Per outpt records pt had a previous left open common femoral endarterectomy and ELHAM placement left common iliac to external iliac by Dr. Viv Meneses at [facility] on 05/21/18. Pt has had issues with wound healing which was not improved after this intervention. She has been receiving local wound care with [facility] wound care/Dr Best's office. She was seen at wound care office today and was recommended to report to the ED for further evaluation and antibiotics for two noted wounds, one on the right lateral leg and the other is a large LLE deep ulceration on the lateral aspect of the left lower leg with foul-smelling drainage and surrounding erythema. - WBC 8.9 (08/26), 10.7 (08/27), 9.3 (08/28) - Blood Cx (08/26) --> NGTD - Wound Gram stain (08/26) --> may gram negative rods. Many pleomorphic gram positive rods. - Wound Cx (08/26) --> MSSA - Vancomycin ( - 08/29) - Zosyn (08/26 - 08/29) - oxacillin (08/29 - 09/02) - Zosyn resumed (09/02 - present) - Appreciate input from Wound Care - Case d/w Dr. Frank (08/27). - Pt may require wound debridement in the OR - Case d/w Dr. Mauricio (08/30). - on 11/18/17 Pt underwent b/l LE revascularization procedure with Dr. Viv Meneses at [facility] - nearly occlusive left common femoral artery, high-grade proximal external iliac artery stenosis, moderate left common iliac artery disease however NO high grade stenosis. - placement of left distal common iliac to external ilac 6x40 self expanding stent - right common iliac artery with high-grade stenosis at its origin patent external iliac stent with moderate instent stenosis moderate to severe right common femoral disease - [place] increased to 10/325 Q4H PRN pain (home med) --> decrease back to 6h scheduled - Pt hd been planned for re-do LEFT groin reconstruction and LLE angiogram with endovascular intervention with Dr. Mauricio on Saturday09/01/18. She was taken to the OR but the scarring was extensive in the left leg and not reconstructable. - Pt/family met with Dr Mauricio on 09/03 and at that time were in agreement for LEFT AKA which was planned for 09/04, but now the pts daughter is not wanting to proceed with surgery so this has been placed on hold until the entire family can come to a decision about how best to proceed. - Pt was again scheduled for surgery 09/05 but daughter and family placed on hold again. - We had 3 of our Vascular surgeons agree she needs AKA and also Dr Mauricio spoke to a surgeon in [place] at the request of family who I'm told also agrees. Family wanted yet another recommendation and so Vascular consulted Ortho. The Orthopedic surgeon who saw the patient on 09/05 also agreed that AKA was most appropriate. - Per discussion with Dr. Jimenez who spoke extensively with the pts again on 09/06/18, the pt is tentatively planned for left AKA on Saturday. - Discussed with the pts at bedside and nursing staff that the pt needs to try to cough and clear out her secretions more. Her WBC count is increased to 15 today. She is starting to have some intermittent fevers and this could be related to atelectasis vs. developing pulmonary infection vs. worsening status of her LLE/infection - Check CXR (09/07/18) -->Stable chest without evidence of consolidating airspace disease and COPD - Glucerna added to her meals as she is drinking without difficulty but not eating much. Explained to the pts that without adequate nutrition she will have a difficult time with the healing process. - She has had some fevers for the last few days intermittently, likely related to the left leg ischemia but also chest congestion. The chest congestion is likely due to poor inspiratory effort. Cont. to encouraging deep cough, IS, mucolytic, nebs. 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 - Increased confusion on 09/09/18. Will continue to monitor clinical status closely - Pt and understand post op risk of poor wound healing and persistent decline. Pt still may ultimately benefit from hospice if surgery unsuccessful. - Pt cleared for discharge by Vascular Surgery (09/11/18) - However, pt with rising WBC 17.3 (09/10), 18.7 (09/11) - obtain repeat UA - obtain C.Dif - DVT prophylaxis with Lovenox Delirium - Pt likely has underlying cognitive deficits/mild dementia based on my discussion with family. - Apparent superimposed delirium likely MF. 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 no acute cva - Urine cx with no growth in 48 hours. - meds/abx adjusted. - Post-op her mental status is decompensated, she is quite confused and oriented only to self on 09/09/18, Cont. to monitor closely HTN - Lisinopril 10mg BID Diabetes mellitus - NovoLog SSI - Accu checks - Hold OHA - Levemir 5units PM & 10 units qAM Cardiomyopathy, EF 35-40% on echo in 12/2017 - Cont. Lasix and KCl at home dose - Replace potassium as needed. - monitor labs Depression - Cont. home meds COPD Asthma - Cont. home meds - Schedule Duonebs Q6H WA and Duonebs PRN - Mucinex - Acapella/IS - Pulmonary toileting - Cont. Zosyn Progress Note: Quality VTE Deep Vein Thrombosis/Pulmonary Embolism Present on Admission: No
[2018-09-12 03:57] LABS: Bacteria,Urine Rare /hpf; Bilirubin,Urine Negative (Negative); Clarity,Urine Hazy (Clear); Color,Urine Yellow (Yellw/Straw); Glucose,Urine (UA) 150 mg/dL (Negative); Hyaline Casts,Urine 4 /lpf (0-3); Leukocyte Esterase,Urine Negative (Negative); Mucus,Urine Few /lpf (Occasional); Nitrite,Urine Negative (Negative); Specific Gravity,Urine 1.017 (1.002-1.035); Squamous Epithelial Cell,Urine 1 /hpf (0-5)
[2018-09-12 06:06] LABS: Baso # (Auto) 0.1 th/mm3 (0.0-0.2); Baso % (Auto) 0.4 % (0.0-2.0); Eos # (Auto) 0.1 th/mm3 (0.0-0.4); Eos % (Auto) 0.3 % (0.0-4.0); Hemoglobin 8.7 gm/dL (11.6-15.3); Lymph % (Auto) 10.4 % (9.0-44.0); Mean Corpuscular HGB Conc 31.1 % (32.0-36.0); Mean Corpuscular Hemoglobin 24.8 pg (27.0-34.0); Mean Corpuscular Volume 79.6 fL (80.0-100.0); Mono # (Auto) 1.3 th/mm3 (0.0-0.9); Mono % (Auto) 6.8 % (0.0-8.0); Neut # (Auto) 15.6 th/mm3 (1.8-7.7); Neut % (Auto) 82.1 % (16.0-70.0); Platelet Count 580 th/mm3 (150-450); Red Blood Count 3.51 mil/mm3 (4.00-5.30); Red Cell Distribution Width 16.1 % (11.6-17.2); White Blood Count 19.1 th/mm3 (4.0-11.0)
[2018-09-12 06:33] LABS: Anion Gap 11 meq/L (5-15); Blood Urea Nitrogen 9 mg/dL (7-18); Calcium 8.9 mg/dL (8.5-10.1); Carbon Dioxide 26.3 meq/L (21.0-32.0); Chloride 105 meq/L (98-107); Glomerular Filtration Rate Greater Than 89 mL/min (>89); Glucose,Random 114 mg/dL (74-106); Magnesium 1.9 mg/dL (1.5-2.5); Potassium 3.4 meq/L (3.5-5.1); Sodium 142 meq/L (136-145)
[2018-09-12] MEDS: Insulin NovoLOG Aspart Correctional Sugar Inj SQ SCH ×4 (07:58→21:10)
--- NOTE | 2018-09-12 09:24 | P.PNVS ---
Subjective Post Op Day #: 4 Procedure: LEFT Above The Knee Amputation Subjective/Hospital Course: Afebrile 72/F Alert and pleasantly confused/Speech clear/Following commands appropriately Pt s/p LEFT Above the Knee Amputation POD 4 Pt appears to be doing well Pt does not appear to be in pain LEFT Above the Knee Amputation site I/C/D with stable ecchymosis (medial aspect ) Objective Vital Signs / I&O: Vital Signs 09/11/18 12:00 09/11/18 16:00 09/11/18 20:00 Temperature 97.8 F 97.8 F 99.1 F Pulse Rate 100 H 95 H 100 H Respiratory Rate 20 18 20 Blood Pressure 119/53 L 117/57 L 118/55 L Pulse Oximetry 94 L 93 L 94 L 09/12/18 00:00 09/12/18 04:00 09/12/18 08:00 Temperature 98.1 F 98.2 F 98.2 F Pulse Rate 96 H 101 H 97 H Respiratory Rate 18 18 16 Blood Pressure 117/55 L 144/63 H 112/55 L Pulse Oximetry 92 L 92 L 98 Intake & Output 09/11/18 09/12/18 09/12/18 18:59 06:59 18:59 Intake Total 410 / 410 Balance 410 / 410 Weight 56.8 kg Intake: IV 50 / 50 Zosyn 3.375 GM Premix 3.375 gm 50 / 50 In 50 ml @ 100 mls/hr IV.SIG Q6H [facility] Rx#:[id number] Oral 360 / 360 Other: # Voids 2 1 Date of Last Bowel Movement 09/11/18 # Bowel Movements 4 Exam: Alert and confused/Speech clear/NAD Skin Warm and dry LEFT AKA incision intact, clean and dry Ecchymosis noted (medial aspect of L LE)- Stable w/o change Wound Vac to L groin intact w/o hematoma or swelling Laboratory Results - last 24 hr 09/11/18 09/11/18 09/11/18 12:16 15:00 16:39 WBC RBC Hgb Hct MCV MCH MCHC RDW Plt Count MPV Neut % (Auto) Lymph % (Auto) [place]ove % (Auto) Eos % (Auto) Baso % (Auto) Neut # (Auto) Lymph # (Auto) Gove # (Auto) Eos # (Auto) Baso # (Auto) WBC Differential Differential Comment Sodium Potassium Chloride Carbon Dioxide Anion Gap BUN Creatinine Estimated GFR POC Glucose 381 H 115 H Random Glucose Calcium Magnesium Urine Color Urine Clarity Urine pH Ur Specific [place] Urine Protein Urine Glucose (UA) Urine Ketones Urine Occult Blood Urine Nitrate Urine Bilirubin Urine Urobilinogen Ur Leukocyte Esterase Urine RBC Urine WBC Ur Squamous Epith Cells Urine Bacteria Hyaline Casts Granular Casts Urine Mucus Micro UA Comment Ur Microscopic Review Urine Culture Comments Stl C.difficile DNA Amp Negative St C. diff Tox Epid 027 Negative 09/11/18 09/12/18 09/12/18 20:48 03:40 05:09 WBC 19.1 H RBC 3.51 L Hgb 8.7 L Hct 28.0 L MCV 79.6 L MCH 24.8 L MCHC 31.1 L RDW 16.1 Plt Count 580 H MPV 9.0 Neut % (Auto) 82.1 H Lymph % (Auto) 10.4 Gove % (Auto) 6.8 Eos % (Auto) 0.3 Baso % (Auto) 0.4 Neut # (Auto) 15.6 H Lymph # (Auto) 2.0 Gove # (Auto) 1.3 H Eos # (Auto) 0.1 Baso # (Auto) 0.1 WBC Differential . Differential Comment Auto diff final Sodium Potassium Chloride Carbon Dioxide Anion Gap BUN Creatinine Estimated GFR POC Glucose 331 H Random Glucose Calcium Magnesium Urine Color Yellow Urine Clarity Hazy H Urine pH 5.0 Ur Specific [place] 1.017 Urine Protein 30 H Urine Glucose (UA) 150 H Urine Ketones Negative Urine Occult Blood Small H Urine Nitrate Negative Urine Bilirubin Negative Urine Urobilinogen Less than 2 Ur Leukocyte Esterase Negative Urine RBC 1 Urine WBC 1 Ur Squamous Epith Cells 1 Urine Bacteria Rare H Hyaline Casts 4 Granular Casts 1 Urine Mucus Few H Micro UA Comment Cath-culture ind Ur Microscopic Review Not Reportable Urine Culture Comments Cath-cult indicated Stl C.difficile DNA Amp St C. diff Tox Epid 027 09/12/18 09/12/18 05:09 07:56 WBC RBC Hgb Hct MCV MCH MCHC RDW Plt Count MPV Neut % (Auto) Lymph % (Auto) [place]ove % (Auto) Eos % (Auto) Baso % (Auto) Neut # (Auto) Lymph # (Auto) Gove # (Auto) Eos # (Auto) Baso # (Auto) WBC Differential Differential Comment Sodium 142 Potassium 3.4 L Chloride 105 Carbon Dioxide 26.3 Anion Gap 11 BUN 9 Creatinine 0.54 Estimated GFR Greater than 89 POC Glucose 139 H Random Glucose 114 H Calcium 8.9 Magnesium 1.9 Urine Color Urine Clarity Urine pH Ur Specific [place] Urine Protein Urine Glucose (UA) Urine Ketones Urine Occult Blood Urine Nitrate Urine Bilirubin Urine Urobilinogen Ur Leukocyte Esterase Urine RBC Urine WBC Ur Squamous Epith Cells Urine Bacteria Hyaline Casts Granular Casts Urine Mucus Micro UA Comment Ur Microscopic Review Urine Culture Comments Stl C.difficile DNA Amp St C. diff Tox Epid 027 Assessment and Plan - Assessment (1) PAD (peripheral artery disease) Code(s): I73.9 - Peripheral vascular disease, unspecified Status: Acute - Plan Afebrile 72/F S/P LEFT Above the knee Amputation POD 4 Pt healing well L LE warm Incision intact w/ stable ecchymotic area (medial aspect) Plan If drainage present to L AKA incision site may apply a dry dressing- Sterile 4x4 then Kerlix Stable for discharge from vascular surgery standpoint Arranged out pt follow up in 2W Leonie Caldwell NP [facility] [phone] attending attestation: I saw and examined the patient and agree the [employer] A/P date of service is 09/12/17 Discharge Planning: Cleared for d/c Arranged out pt follow up in 2W
[2018-09-12] MEDS: Lisinopril 10 MG Tablet PO SCH ×2 (09:45→21:11)
[2018-09-12] MEDS: Furosemide 20 MG Tablet PO SCH (09:45)
[2018-09-12] MEDS: guaiFENesin 600 MG ER Tablet PO SCH ×2 (09:45→21:02)
[2018-09-12] MEDS: Enoxaparin Inj 30 MG/0.3 ML Syringe SQ SCH (09:46)
[2018-09-12] MEDS: Nystatin 100,000 UNITS/GM Powder 15 GM Bottle TOPICAL SCH ×4 (09:46→21:09)
[2018-09-12] MEDS: Senna/Docusate Sodium 8.6/50 MG Tablet PO SCH ×2 (09:46→21:11)
[2018-09-12] MEDS: ARIPiprazole 2 MG Tablet PO SCH (09:46)
[2018-09-12] MEDS: Insulin Detemir Inj 1,000 UNIT/10 ML Vial SQ SCH ×2 (09:46→21:08)
[2018-09-12] MEDS: Gabapentin 300 MG Capsule PO SCH ×2 (09:46→21:02)
[2018-09-12] MEDS: Nystatin Liq 500,000 UNIT/5 ML UDC SWISH-SWAL SCH ×4 (09:46→21:07)
[2018-09-12] MEDS: Tolterodine Tartrate LA 4 MG Capsule PO SCH (09:46)
[2018-09-12] MEDS ORDERED: Potassium Chloride 25 MEQ Effervescent Tablet PO ONE (11:00)
--- NOTE | 2018-09-12 14:31 | P.PNIM ---
Subjective Interval history: No new complaints. Pain is controlled. Physical Exam Vital signs: Last Vital Signs Temp 97.2 F L 09/12/18 12:00 Pulse 101 H 09/12/18 12:00 Resp 16 09/12/18 12:00 BP 122/80 09/12/18 12:00 Pulse Ox 94 L 09/12/18 12:00 Narrative: General: A&Ox 2 SKIN: Pt with small pressure wound on her gluteal cleft Cardiac: Reg Chest: clear x b/l Abd: s/nt/bs Ext: Left BKA, bandages are c/d/i Results Labs CBC & Chem 7: 09/13/18 04:49 09/13/18 04:49 Assessment and Plan Assessment (1) PAD (peripheral artery disease): Code(s): I73.9 - Peripheral vascular disease, unspecified Status: Acute Plan Nonhealing bilateral LE wounds (L worse than R) Severe PAD - Pt is a 72 y/o WF with HTN, Diabetes mellitus, CAD/Cardiomyopathy, hyperlipidemia, depression, Lumbar DDD/post-polio syndrome, aortic atherosclerosis, COPD/asthma and severe PAD. Per outpt records pt had a previous left open common femoral endarterectomy and ELHAM placement left common iliac to external iliac by Dr. Viv Meneses at [facility] on 05/21/18. Pt has had issues with wound healing which was not improved after this intervention. She has been receiving local wound care with [facility] wound care/Dr Best's office. She was seen at wound care office today and was recommended to report to the ED for further evaluation and antibiotics for two noted wounds, one on the right lateral leg and the other is a large LLE deep ulceration on the lateral aspect of the left lower leg with foul-smelling drainage and surrounding erythema. - WBC 8.9 (08/26), 10.7 (08/27), 9.3 (08/28) - Blood Cx (08/26) --> NGTD - Wound Gram stain (08/26) --> may gram negative rods. Many pleomorphic gram positive rods. - Wound Cx (08/26) --> MSSA - Vancomycin ( - 08/29) - Zosyn (08/26 - 08/29) - oxacillin (08/29 - 09/02) - Zosyn (09/02 - 09/11/18) - Appreciate input from Wound Care - Case d/w Dr. Frank (08/27). - Pt may require wound debridement in the OR - Case d/w Dr. Mauricio (08/30). - on 11/18/17 Pt underwent b/l LE revascularization procedure with Dr. Viv Meneses at [facility] - nearly occlusive left common femoral artery, high-grade proximal external iliac artery stenosis, moderate left common iliac artery disease however NO high grade stenosis. - placement of left distal common iliac to external ilac 6x40 self expanding stent - right common iliac artery with high-grade stenosis at its origin patent external iliac stent with moderate instent stenosis moderate to severe right common femoral disease - [place] increased to 10/325 Q4H PRN pain (home med) --> decrease back to 6h scheduled - Pt hd been planned for re-do LEFT groin reconstruction and LLE angiogram with endovascular intervention with Dr. Mauricio on Saturday09/01/18. She was taken to the OR but the scarring was extensive in the left leg and not reconstructable. - Pt/family met with Dr Mauricio on 09/03 and at that time were in agreement for LEFT AKA which was planned for 09/04, but now the pts daughter is not wanting to proceed with surgery so this has been placed on hold until the entire family can come to a decision about how best to proceed. - Pt was again scheduled for surgery 09/05 but daughter and family placed on hold again. - We had 3 of our Vascular surgeons agree she needs AKA and also Dr Mauricio spoke to a surgeon in [place] at the request of family who I'm told also agrees. Family wanted yet another recommendation and so Vascular consulted Ortho. The Orthopedic surgeon who saw the patient on 09/05 also agreed that AKA was most appropriate. - Per discussion with Dr. Jimenez who spoke extensively with the pts again on 09/06/18, the pt is tentatively planned for left AKA on Saturday. - Discussed with the pts at bedside and nursing staff that the pt needs to try to cough and clear out her secretions more. Her WBC count is increased to 15 today. She is starting to have some intermittent fevers and this could be related to atelectasis vs. developing pulmonary infection vs. worsening status of her LLE/infection - Check CXR (09/07/18) -->Stable chest without evidence of consolidating airspace disease and COPD - Glucerna added to her meals as she is drinking without difficulty but not eating much. Explained to the pts that without adequate nutrition she will have a difficult time with the healing process. - She has had some fevers for the last few days intermittently, likely related to the left leg ischemia but also chest congestion. The chest congestion is likely due to poor inspiratory effort. Cont. to encouraging deep cough, IS, mucolytic, nebs. 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 - Increased confusion on 09/09/18. Will continue to monitor clinical status closely - Pt and understand post op risk of poor wound healing and persistent decline. Pt still may ultimately benefit from hospice if surgery unsuccessful. - Pt cleared for discharge by Vascular Surgery (09/11/18) - However, pt with rising WBC 17.3 (09/10), 18.7 (09/11), 19.1 (09/12) - UA (09/12) --> nitrates negative, leukocytes negative - C.Dif (09/11) - No fever but WBC rising - repeat CBC in AM - ?aspirating - obtain swallow eval - anticpate d/c to SNF in 1-2 days. - DVT prophylaxis with Lovenox Delirium - Pt likely has underlying cognitive deficits/mild dementia based on my discussion with family. - Apparent superimposed delirium likely MF. 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 no acute cva - Urine cx with no growth in 48 hours. - meds/abx adjusted. - Post-op her mental status is decompensated, she is quite confused and oriented only to self on 09/09/18, Cont. to monitor closely HTN - Lisinopril 10mg BID Diabetes mellitus - NovoLog SSI - Accu checks - Hold OHA - Levemir 5units PM & 10 units qAM Cardiomyopathy, EF 35-40% on echo in 12/2017 - Cont. Lasix and KCl at home dose - Replace potassium as needed. - monitor labs Depression - Cont. home meds COPD Asthma - Cont. home meds - Schedule Duonebs Q6H [place] and Duonebs PRN - Mucinex - Acapella/IS - Pulmonary toileting - Cont. Zosyn Progress Note: Quality VTE Deep Vein Thrombosis/Pulmonary Embolism Present on Admission: No
[2018-09-13 06:53] LABS: Baso % (Auto) 0.2 % (0.0-2.0); Eos # (Auto) 0.1 th/mm3 (0.0-0.4); Eos % (Auto) 0.5 % (0.0-4.0); Lymph # (Auto) 2.2 th/mm3 (1.0-4.8); Lymph % (Auto) 13.3 % (9.0-44.0); Mean Corpuscular HGB Conc 32.2 % (32.0-36.0); Mean Corpuscular Hemoglobin 25.6 pg (27.0-34.0); Mean Corpuscular Volume 79.5 fL (80.0-100.0); Mono # (Auto) 1.3 th/mm3 (0.0-0.9); Mono % (Auto) 7.6 % (0.0-8.0); Neut % (Auto) 78.4 % (16.0-70.0); Platelet Count 592 th/mm3 (150-450); Red Blood Count 3.52 mil/mm3 (4.00-5.30); Red Cell Distribution Width 16.1 % (11.6-17.2); White Blood Count 16.6 th/mm3 (4.0-11.0)
[2018-09-13 07:15] LABS: Albumin 1.9 g/dL (3.4-5.0); Anion Gap 9 meq/L (5-15); Aspartate Aminotransferase 27 U/L (15-37); Blood Urea Nitrogen 12 mg/dL (7-18); Carbon Dioxide 27.2 meq/L (21.0-32.0); Chloride 107 meq/L (98-107); Glomerular Filtration Rate 82 mL/min (>89); Glucose,Random 92 mg/dL (74-106); Potassium 3.5 meq/L (3.5-5.1); Sodium 143 meq/L (136-145)
[2018-09-13 07:18] LABS: Alanine Aminotransferase 19 U/L (10-53); Alkaline Phosphatase 136 U/L (45-117); Total Protein 8.2 g/dL (6.4-8.2)
[2018-09-13] MEDS: Insulin NovoLOG Aspart Correctional Sugar Inj SQ SCH ×4 (08:02→21:47)
[2018-09-13] MEDS: Nystatin Liq 500,000 UNIT/5 ML UDC SWISH-SWAL SCH ×4 (09:27→21:48)
[2018-09-13] MEDS: Tolterodine Tartrate LA 4 MG Capsule PO SCH (09:28)
[2018-09-13] MEDS: guaiFENesin 600 MG ER Tablet PO SCH ×2 (09:28→21:48)
[2018-09-13] MEDS: Furosemide 20 MG Tablet PO SCH (09:28)
[2018-09-13] MEDS: ARIPiprazole 2 MG Tablet PO SCH (09:28)
[2018-09-13] MEDS: Gabapentin 300 MG Capsule PO SCH ×2 (09:28→21:48)
[2018-09-13] MEDS: Lisinopril 10 MG Tablet PO SCH ×2 (09:28→21:49)
[2018-09-13] MEDS: Senna/Docusate Sodium 8.6/50 MG Tablet PO SCH ×2 (09:28→21:48)
[2018-09-13] MEDS: Insulin Detemir Inj 1,000 UNIT/10 ML Vial SQ SCH ×2 (09:29→21:46)
[2018-09-13] MEDS: Nystatin 100,000 UNITS/GM Powder 15 GM Bottle TOPICAL SCH ×4 (09:29→21:49)
[2018-09-13] MEDS: Enoxaparin Inj 30 MG/0.3 ML Syringe SQ SCH (09:29)
[2018-09-13 11:31] LABS: Lymphocytes 10 % (9-44); Monocytes 15 % (0-8); Myelocytes 1 % (0-0); Platelet Morphology Normal (Normal)
[2018-09-13 11:33] LABS: Ovalocytes 1+; Spherocytes Occ
[2018-09-13 11:34] LABS: Dimorphic RBC Present
--- NOTE | 2018-09-13 14:47 | P.PNIM ---
Subjective Interval history: Pt sleepy at my 2PM visit. Pt opens eyes on commands & voices that she is currently in the hospital. Nursing reports that pt ate 100% of breakfast and 50% of lunch. Physical Exam Vital signs: Last Vital Signs Temp 98.2 F 09/13/18 12:00 Pulse 102 H 09/13/18 12:00 Resp 14 09/13/18 12:00 BP 101/49 L 09/13/18 12:00 Pulse Ox 98 09/13/18 12:00 Narrative: General: A&Ox 2 SKIN: Pt with small pressure wound on her gluteal cleft Cardiac: Reg Chest: clear x b/l Abd: s/nt/bs Ext: Left BKA, bandages are c/d/i Results Labs CBC & Chem 7: 09/13/18 04:49 09/13/18 04:49 Assessment and Plan Assessment (1) PAD (peripheral artery disease): Code(s): I73.9 - Peripheral vascular disease, unspecified Status: Acute Plan Nonhealing bilateral LE wounds (L worse than R) Severe PAD - Pt is a 72 y/o WF with HTN, Diabetes mellitus, CAD/Cardiomyopathy, hyperlipidemia, depression, Lumbar DDD/post-polio syndrome, aortic atherosclerosis, COPD/asthma and severe PAD. Per outpt records pt had a previous left open common femoral endarterectomy and ELHAM placement left common iliac to external iliac by Dr. Viv Meneses at [facility] on 05/21/18. Pt has had issues with wound healing which was not improved after this intervention. She has been receiving local wound care with [facility] wound care/Dr Best's office. She was seen at wound care office today and was recommended to report to the ED for further evaluation and antibiotics for two noted wounds, one on the right lateral leg and the other is a large LLE deep ulceration on the lateral aspect of the left lower leg with foul-smelling drainage and surrounding erythema. - WBC 8.9 (08/26), 10.7 (08/27), 9.3 (08/28) - Blood Cx (08/26) --> NGTD - Wound Gram stain (08/26) --> may gram negative rods. Many pleomorphic gram positive rods. - Wound Cx (08/26) --> MSSA - Vancomycin ( - 08/29) - Zosyn (08/26 - 08/29) - oxacillin (08/29 - 09/02) - Zosyn (09/02 - 09/11/18) - Appreciate input from Wound Care - Case d/w Dr. Frank (08/27). - Pt may require wound debridement in the OR - Case d/w Dr. Mauricio (08/30). - on 11/18/17 Pt underwent b/l LE revascularization procedure with Dr. Viv Meneses at [facility] - nearly occlusive left common femoral artery, high-grade proximal external iliac artery stenosis, moderate left common iliac artery disease however NO high grade stenosis. - placement of left distal common iliac to external ilac 6x40 self expanding stent - right common iliac artery with high-grade stenosis at its origin patent external iliac stent with moderate instent stenosis moderate to severe right common femoral disease - [place] increased to 10/325 Q4H PRN pain (home med) --> decrease back to 6h scheduled - Pt hd been planned for re-do LEFT groin reconstruction and LLE angiogram with endovascular intervention with Dr. Mauricio on Saturday09/01/18. She was taken to the OR but the scarring was extensive in the left leg and not reconstructable. - Pt/family met with Dr Mauricio on 09/03 and at that time were in agreement for LEFT AKA which was planned for 09/04, but now the pts daughter is not wanting to proceed with surgery so this has been placed on hold until the entire family can come to a decision about how best to proceed. - Pt was again scheduled for surgery 09/05 but daughter and family placed on hold again. - We had 3 of our Vascular surgeons agree she needs AKA and also Dr Mauricio spoke to a surgeon in [place] at the request of family who I'm told also agrees. Family wanted yet another recommendation and so Vascular consulted Ortho. The Orthopedic surgeon who saw the patient on 09/05 also agreed that AKA was most appropriate. - Per discussion with Dr. Jimenez who spoke extensively with the pts again on 09/06/18, the pt is tentatively planned for left AKA on Saturday. - Discussed with the pts at bedside and nursing staff that the pt needs to try to cough and clear out her secretions more. Her WBC count is increased to 15 today. She is starting to have some intermittent fevers and this could be related to atelectasis vs. developing pulmonary infection vs. worsening status of her LLE/infection - Check CXR (09/07/18) -->Stable chest without evidence of consolidating airspace disease and COPD - Glucerna added to her meals as she is drinking without difficulty but not eating much. Explained to the pts that without adequate nutrition she will have a difficult time with the healing process. - She has had some fevers for the last few days intermittently, likely related to the left leg ischemia but also chest congestion. The chest congestion is likely due to poor inspiratory effort. Cont. to encouraging deep cough, IS, mucolytic, nebs. - zosyn (09/02 - 09/11/18) - plavix - Pt is s/p Left BKA on 09/08/18 - Increased confusion on 09/09/18. Will continue to monitor clinical status closely - Pt and understand post op risk of poor wound healing and persistent decline. Pt still may ultimately benefit from hospice if surgery unsuccessful. - Pt cleared for discharge by Vascular Surgery (09/11/18) - However, pt with rising WBC 17.3 (09/10), 18.7 (09/11), 19.1 (09/12), 16.6 (09/13) - UA (09/12) --> nitrates negative, leukocytes negative - C.Dif (09/11) - WBC now trending slightly down - ?aspirating - swallow eval with ST (09/13) --> mechanical soft, thin liquids - Repeat CT brain - obtain TSH, free T4, B12, folate, RPR, ammonia - IVFs - repeat BMP, CBC, Mg in AM - anticpate d/c to SNF in 1-2 days. - DVT prophylaxis with Lovenox Delirium - Pt likely has underlying cognitive deficits/mild dementia based on my discussion with family. - Apparent superimposed delirium likely MF. 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 no acute cva - Urine cx with no growth in 48 hours. - meds/abx adjusted. - Post-op her mental status is decompensated, she is quite confused and oriented only to self on 09/09/18, Cont. to monitor closely HTN - Lisinopril 10mg BID Diabetes mellitus - NovoLog SSI - Accu checks - Hold OHA - Levemir 5units PM & 10 units qAM Cardiomyopathy, EF 35-40% on echo in 12/2017 - Cont. Lasix and KCl at home dose - Replace potassium as needed. - monitor labs Depression - Cont. home meds COPD Asthma - Cont. home meds - Schedule Duonebs Q6H [place] and Duonebs PRN - Mucinex - Acapella/IS - Pulmonary toileting - Cont. Zosyn Progress Note: Quality VTE Deep Vein Thrombosis/Pulmonary Embolism Present on Admission: No
[2018-09-13] MEDS: KCL 20 mEq/NACL 0.45% Inj 1,000 ML IV.CONT SCH (15:22)
[2018-09-13 16:31] LABS: Free T4 (Free Thyroxine) 1.08 ng/dL (0.76-1.46); Vitamin B12 435 pg/mL (193-986)
[2018-09-13] MEDS: Collagenase Oint 30 GM Tube TOPICAL SCH (18:01)
--- NOTE | 2018-09-13 22:55 | CT ---
EXAM DATE: 09/13/2018 10:52 PM EST AGE/SEX: 72 years / Female INDICATIONS: Altered mental status. CLINICAL DATA: This is the patient's initial encounter. Patient reports that signs and symptoms have been present for 1 day and indicates a pain score of 0/10. MEDICAL/SURGICAL HISTORY: Diabetes. Cardiovascular disease. section. Cholecystectomy. il iac artery stent, heart catheterization RADIATION DOSE: 31.74 CTDI (mGy) COMPARISON: [facility] [place], CT HEAD W/O CONTRAST, 09/01/2018. . TECHNIQUE: CT of the head without contrast. Using automated exposure control and adjustment of the mA and/or kV according to patient size, radiation dose was kept as low as reasonably achievable to ob tain optimal diagnostic quality images. DICOM format image data is available electronically for revi ew and comparison. FINDINGS: Cerebrum: The ventricles are normal for age. No evidence of midline shift, mass lesion, hemorrhage or acute infarction. No extraaxial fluid collections are seen. 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 Posterior Fossa: The cerebellum and brainstem are intact. The 4th ventricle is midline. The cerebe llopontine angle is unremarkable. Extracranial: The visualized portion of the orbits is intact. Skull: The calvaria is intact. No evidence of skull fracture. CONCLUSION: No acute intracranial findings. . Electronically signed by: Danny Chen MD Board Certified Radiologist 09/13/2018 10:54 PM EST
[2018-09-14] MEDS: KCL 20 mEq/NACL 0.45% Inj 1,000 ML IV.CONT SCH ×3 (02:09→14:57)
[2018-09-14 06:46] LABS: Baso # (Auto) 0.2 th/mm3 (0.0-0.2); Baso % (Auto) 0.8 % (0.0-2.0); Eos # (Auto) 0.1 th/mm3 (0.0-0.4); Eos % (Auto) 0.3 % (0.0-4.0); Hematocrit 29.5 % (35.0-46.0); Hemoglobin 9.1 gm/dL (11.6-15.3); Lymph # (Auto) 1.8 th/mm3 (1.0-4.8); Lymph % (Auto) 9.1 % (9.0-44.0); Mean Corpuscular Volume 80.9 fL (80.0-100.0); Mean Platelet Volume 9.1 fL (7.0-11.0); Mono # (Auto) 1.3 th/mm3 (0.0-0.9); Mono % (Auto) 6.8 % (0.0-8.0); Neut # (Auto) 16.1 th/mm3 (1.8-7.7); Platelet Count 597 th/mm3 (150-450); Red Blood Count 3.65 mil/mm3 (4.00-5.30); Red Cell Distribution Width 16.5 % (11.6-17.2); White Blood Count 19.4 th/mm3 (4.0-11.0)
[2018-09-14 07:04] LABS: Calcium 8.9 mg/dL (8.5-10.1); Carbon Dioxide 24.5 meq/L (21.0-32.0); Magnesium 1.8 mg/dL (1.5-2.5); Potassium 4.5 meq/L (3.5-5.1)
[2018-09-14 07:27] LABS: Mean Corpuscular HGB Conc 30.9 % (32.0-36.0)
--- NOTE | 2018-09-14 08:35 | P.PNVS ---
Subjective Post Op Day #: 6 Procedure: LEFT Above The Knee Amputation Subjective/Hospital Course: seems delirious and disoriented to place and time, but no acute distress doesn't endorse pain to L AKA or groin [place] 50% po but needs assistance with eating Objective Vital Signs / I&O: Vital Signs 09/13/18 12:00 09/13/18 16:00 09/13/18 20:00 Temperature 98.2 F 97.3 F L 98.4 F Pulse Rate 102 H 97 H 100 H Respiratory Rate 14 12 20 Blood Pressure 101/49 L 112/56 L 104/49 L Pulse Oximetry 98 98 96 09/14/18 00:00 Temperature 98.1 F Pulse Rate 101 H Respiratory Rate 20 Blood Pressure 109/55 L Pulse Oximetry 97 Intake & Output 09/13/18 09/14/18 09/14/18 18:59 06:59 18:59 Intake Total 360 / 360 1000 / 1000 Balance 360 / 360 1000 / 1000 Weight 52.8 kg Intake: IV 1000 / 1000 Potassium Chlor 20 mEq/NACL 0. 1000 / 1000 45% Inj 1,000 ML @ 84 mls/hr IV .CONT .[id number] [facility] Rx#:[id number] Oral 360 / 360 Other: # Incontinent Voids 2 2 Date of Last Bowel Movement 09/13/18 # Bowel Movements 2 # Incontinent Bowel Movements 1 Exam: disoriented L AKA slight ecchymosis medially groin with minor hematoma under Prevena Laboratory Results - last 24 hr 09/13/18 09/13/18 09/13/18 04:49 15:40 15:40 WBC RBC Hgb Hct MCV MCH MCHC RDW Plt Count MPV Prelim Diff (Auto) Neut % (Auto) Lymph % (Auto) [place] % (Auto) Eos % (Auto) Baso % (Auto) Neut # (Auto) Lymph # (Auto) [place] # (Auto) Eos # (Auto) Baso # (Auto) WBC Differential Manual diff final Seg Neuts % (Manual) 73 H Band Neuts % (Manual) 1 Lymphocytes % (Manual) 10 Monocytes % (Manual) 15 H Myelocytes % (Man) 1 H Abs Neuts (Manual) 12.5 H Differential Comment Platelet Estimate High H Platelet Morphology Normal Dimorphic RBCs Present H Spherocytes Occ H Ovalocytes 1+ H Sodium Potassium Chloride Carbon Dioxide Anion Gap BUN Creatinine Estimated GFR POC Glucose Random Glucose Calcium Magnesium Ammonia 22 Vitamin B12 435 Folate Greater than 20.0 H TSH 2.950 Free T4 1.08 09/13/18 09/13/18 09/14/18 16:57 19:48 06:05 WBC 19.4 H RBC 3.65 L Hgb 9.1 L Hct 29.5 L MCV 80.9 MCH 25.0 L MCHC 30.9 L RDW 16.5 Plt Count 597 H MPV 9.1 Prelim Diff (Auto) Slide review pending Neut % (Auto) 83.0 H Lymph % (Auto) 9.1 [place] % (Auto) 6.8 Eos % (Auto) 0.3 Baso % (Auto) 0.8 Neut # (Auto) 16.1 H Lymph # (Auto) 1.8 [place] # (Auto) 1.3 H Eos # (Auto) 0.1 Baso # (Auto) 0.2 WBC Differential Seg Neuts % (Manual) Band Neuts % (Manual) Lymphocytes % (Manual) Monocytes % (Manual) Myelocytes % (Man) Abs Neuts (Manual) Differential Comment . Platelet Estimate Platelet Morphology Dimorphic RBCs Spherocytes Ovalocytes Sodium Potassium Chloride Carbon Dioxide Anion Gap BUN Creatinine Estimated GFR POC Glucose 97 186 H Random Glucose Calcium Magnesium Ammonia Vitamin B12 Folate TSH Free T4 09/14/18 09/14/18 06:05 08:09 WBC RBC Hgb Hct MCV MCH MCHC RDW Plt Count MPV Prelim Diff (Auto) Neut % (Auto) Lymph % (Auto) [place] % (Auto) Eos % (Auto) Baso % (Auto) Neut # (Auto) Lymph # (Auto) [place] # (Auto) Eos # (Auto) Baso # (Auto) WBC Differential Seg Neuts % (Manual) Band Neuts % (Manual) Lymphocytes % (Manual) Monocytes % (Manual) Myelocytes % (Man) Abs Neuts (Manual) Differential Comment Platelet Estimate Platelet Morphology Dimorphic RBCs Spherocytes Ovalocytes Sodium 142 Potassium 4.5 D Chloride 108 H Carbon Dioxide 24.5 Anion Gap 10 BUN 18 Creatinine 0.89 Estimated GFR 62 L POC Glucose 219 H Random Glucose 197 H D Calcium 8.9 Magnesium 1.8 Ammonia Vitamin B12 Folate TSH Free T4 Microbiology 09/12/18 03:40 Urine Culture - Preliminary Catheterized Urine No growth in 24 hours Assessment and Plan - Assessment (1) PAD (peripheral artery disease) Code(s): I73.9 - Peripheral vascular disease, unspecified Status: Acute - Plan POD#6 s/p L AKA 1. Change prevena in LEFT groin tomorrow (Saturday) 2. f/u cultures (all NGTD) and reorient as frequently as possible 3. assist with nutrition 4. possible psych consult for delirium? Discharge Planning: Cleared for d/c Arranged out pt follow up in 2W
--- NOTE | 2018-09-14 09:19 | XR ---
EXAM DATE: 09/14/2018 9:03 AM EST AGE/SEX: 72 years / Female INDICATIONS: Cough. CLINICAL DATA: This is the patient's subsequent encounter. Patient reports that signs and symptoms h ave been present for 1 day and indicates a pain score of 0/10. MEDICAL/SURGICAL HISTORY: . Diabetes. Cardiovascular disease. section. Cholecystectomy . iliac artery stent, heart catheterization . [place] [facility] [place] 1[place] S[place]10/2018. . FINDINGS: The lungs are clear without infiltrate, nodule, or mass. There is no appreciable pleural effusion for technique. Heart and mediastinum are unremarkable. CONCLUSION: No acute cardiopulmonary disease. Electronically signed by: Wilda Yi MD Board Certified Radiologist 09/14/2018 9:17 AM EST
[2018-09-14] MEDS: Insulin NovoLOG Aspart Correctional Sugar Inj SQ SCH ×4 (09:25→20:01)
[2018-09-14] MEDS: Enoxaparin Inj 30 MG/0.3 ML Syringe SQ SCH (09:25)
[2018-09-14] MEDS: Insulin Detemir Inj 1,000 UNIT/10 ML Vial SQ SCH ×2 (09:25→20:01)
[2018-09-14] MEDS: Nystatin Liq 500,000 UNIT/5 ML UDC SWISH-SWAL SCH ×4 (09:26→20:03)
[2018-09-14] MEDS: Tolterodine Tartrate LA 4 MG Capsule PO SCH (09:26)
[2018-09-14] MEDS: ARIPiprazole 2 MG Tablet PO SCH (09:26)
[2018-09-14] MEDS: guaiFENesin 600 MG ER Tablet PO SCH ×2 (09:26→20:02)
[2018-09-14] MEDS: Furosemide 20 MG Tablet PO SCH (09:26)
[2018-09-14] MEDS: Lisinopril 10 MG Tablet PO SCH ×2 (09:26→20:02)
[2018-09-14] MEDS: Gabapentin 300 MG Capsule PO SCH ×2 (09:26→20:02)
[2018-09-14] MEDS: Nystatin 100,000 UNITS/GM Powder 15 GM Bottle TOPICAL SCH ×4 (09:27→20:03)
[2018-09-14] MEDS: Collagenase Oint 30 GM Tube TOPICAL SCH (09:27)
[2018-09-14] MEDS: Senna/Docusate Sodium 8.6/50 MG Tablet PO SCH ×2 (09:27→20:02)
[2018-09-14 12:22] LABS: Ovalocytes 1+
--- NOTE | 2018-09-14 17:51 | P.PNIM ---
Subjective Interval history: Pt remains confused at times. Physical Exam Vital signs: Last Vital Signs Temp 98.1 F 09/14/18 12:00 Pulse 126 H 09/14/18 12:00 Resp 14 09/14/18 12:00 BP 115/59 L 09/14/18 12:00 Pulse Ox 93 L 09/14/18 12:00 Narrative: General: A&Ox 2 SKIN: Pt with small pressure wound on her gluteal cleft Cardiac: Reg Chest: clear x b/l Abd: s/nt/bs Ext: Left BKA, bandages are c/d/i Results Labs CBC & Chem 7: 09/14/18 06:05 09/14/18 06:05 Assessment and Plan Assessment (1) PAD (peripheral artery disease): Code(s): I73.9 - Peripheral vascular disease, unspecified Status: Acute Plan Nonhealing bilateral LE wounds (L worse than R) Severe PAD - Pt is a 72 y/o WF with HTN, Diabetes mellitus, CAD/Cardiomyopathy, hyperlipidemia, depression, Lumbar DDD/post-polio syndrome, aortic atherosclerosis, COPD/asthma and severe PAD. Per outpt records pt had a previous left open common femoral endarterectomy and ELHAM placement left common iliac to external iliac by Dr. Viv Meneses at [facility] on 05/21/18. Pt has had issues with wound healing which was not improved after this intervention. She has been receiving local wound care with [facility] wound care/Dr Best's office. She was seen at wound care office today and was recommended to report to the ED for further evaluation and antibiotics for two noted wounds, one on the right lateral leg and the other is a large LLE deep ulceration on the lateral aspect of the left lower leg with foul-smelling drainage and surrounding erythema. - WBC 8.9 (08/26), 10.7 (08/27), 9.3 (08/28) - Blood Cx (08/26) --> NGTD - Wound Gram stain (08/26) --> may gram negative rods. Many pleomorphic gram positive rods. - Wound Cx (08/26) --> MSSA - Vancomycin ( - 08/29) - Zosyn (08/26 - 08/29) - oxacillin (08/29 - 09/02) - Zosyn (09/02 - 09/11/18) - Appreciate input from Wound Care - Case d/w Dr. Frank (08/27). - Pt may require wound debridement in the OR - Case d/w Dr. Mauricio (08/30). - on 11/18/17 Pt underwent b/l LE revascularization procedure with Dr. Viv Meneses at [facility] - nearly occlusive left common femoral artery, high-grade proximal external iliac artery stenosis, moderate left common iliac artery disease however NO high grade stenosis. - placement of left distal common iliac to external ilac 6x40 self expanding stent - right common iliac artery with high-grade stenosis at its origin patent external iliac stent with moderate instent stenosis moderate to severe right common femoral disease - [place] increased to 10/325 Q4H PRN pain (home med) --> decrease back to 6h scheduled - Pt hd been planned for re-do LEFT groin reconstruction and LLE angiogram with endovascular intervention with Dr. Mauricio on Saturday09/01/18. She was taken to the OR but the scarring was extensive in the left leg and not reconstructable. - Pt/family met with Dr Mauricio on 09/03 and at that time were in agreement for LEFT AKA which was planned for 09/04, but now the pts daughter is not wanting to proceed with surgery so this has been placed on hold until the entire family can come to a decision about how best to proceed. - Pt was again scheduled for surgery 09/05 but daughter and family placed on hold again. - We had 3 of our Vascular surgeons agree she needs AKA and also Dr Mauricio spoke to a surgeon in [place] at the request of family who I'm told also agrees. Family wanted yet another recommendation and so Vascular consulted Ortho. The Orthopedic surgeon who saw the patient on 09/05 also agreed that AKA was most appropriate. - Per discussion with Dr. Jimenez who spoke extensively with the pts again on 09/06/18, the pt is tentatively planned for left AKA on Saturday. - Discussed with the pts at bedside and nursing staff that the pt needs to try to cough and clear out her secretions more. Her WBC count is increased to 15 today. She is starting to have some intermittent fevers and this could be related to atelectasis vs. developing pulmonary infection vs. worsening status of her LLE/infection - Check CXR (09/07/18) -->Stable chest without evidence of consolidating airspace disease and COPD - Glucerna added to her meals as she is drinking without difficulty but not eating much. Explained to the pts that without adequate nutrition she will have a difficult time with the healing process. - She has had some fevers for the last few days intermittently, likely related to the left leg ischemia but also chest congestion. The chest congestion is likely due to poor inspiratory effort. Cont. to encouraging deep cough, IS, mucolytic, nebs. - zosyn (09/02 - 09/11/18) - plavix - Pt is s/p Left BKA on 09/08/18 - Increased confusion on 09/09/18. Will continue to monitor clinical status closely - Pt and understand post op risk of poor wound healing and persistent decline. Pt still may ultimately benefit from hospice if surgery unsuccessful. - Pt cleared for discharge by Vascular Surgery (09/11/18) - However, pt with rising WBC 17.3 (09/10), 18.7 (09/11), 19.1 (09/12), 16.6 (09/13), 19.4 (09/14) - UA (09/12) --> nitrates negative, leukocytes negative - C.Dif (09/11) - ?aspirating - swallow eval with ST (09/13) --> mechanical soft, thin liquids - Repeat CT brain (09/13/18) --> NO acute findings - TSH, free T4, folate, ammonia --> WNL - RPR --> pending - IVFs - repeat BMP, CBC, Mg in AM - anticpate d/c to SNF in 1-2 days. - DVT prophylaxis with Lovenox Delirium - Pt likely has underlying cognitive deficits/mild dementia based on my discussion with family. - Apparent superimposed delirium likely MF. 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 no acute cva - Urine cx with no growth in 48 hours. - meds/abx adjusted. - Post-op her mental status is decompensated, she is quite confused and oriented only to self on 09/09/18, Cont. to monitor closely HTN - Lisinopril 10mg BID Diabetes mellitus - NovoLog SSI - Accu checks - Hold OHA - Levemir 5units PM & 10 units qAM Cardiomyopathy, EF 35-40% on echo in 12/2017 - Cont. Lasix and KCl at home dose - Replace potassium as needed. - monitor labs Depression - Cont. home meds COPD Asthma - Cont. home meds - Schedule Duonebs Q6H WA and Duonebs PRN - Mucinex - Acapella/IS - Pulmonary toileting - Cont. Zosyn Progress Note: Quality VTE Deep Vein Thrombosis/Pulmonary Embolism Present on Admission: No
[2018-09-15] MEDS: KCL 20 mEq/NACL 0.45% Inj 1,000 ML IV.CONT SCH ×2 (01:51→15:15)
[2018-09-15 05:37] LABS: Baso # (Auto) 0.2 th/mm3 (0.0-0.2); Baso % (Auto) 1.1 % (0.0-2.0); Eos # (Auto) 0.1 th/mm3 (0.0-0.4); Eos % (Auto) 0.6 % (0.0-4.0); Hemoglobin 8.8 gm/dL (11.6-15.3); Lymph # (Auto) 2.2 th/mm3 (1.0-4.8); Lymph % (Auto) 10.6 % (9.0-44.0); Mean Corpuscular HGB Conc 31.6 % (32.0-36.0); Mean Corpuscular Hemoglobin 25.4 pg (27.0-34.0); Mean Corpuscular Volume 80.4 fL (80.0-100.0); Mean Platelet Volume 9.2 fL (7.0-11.0); Mono # (Auto) 1.3 th/mm3 (0.0-0.9); Mono % (Auto) 6.5 % (0.0-8.0); Neut # (Auto) 16.7 th/mm3 (1.8-7.7); Neut % (Auto) 81.2 % (16.0-70.0); Platelet Count 567 th/mm3 (150-450); Red Blood Count 3.48 mil/mm3 (4.00-5.30); Red Cell Distribution Width 16.4 % (11.6-17.2); White Blood Count 20.5 th/mm3 (4.0-11.0)
[2018-09-15 06:02] LABS: Carbon Dioxide 24.2 meq/L (21.0-32.0); Magnesium 1.9 mg/dL (1.5-2.5); Potassium 4.2 meq/L (3.5-5.1)
[2018-09-15] MEDS: Insulin NovoLOG Aspart Correctional Sugar Inj SQ SCH ×4 (08:39→22:01)
[2018-09-15] MEDS: Insulin Detemir Inj 1,000 UNIT/10 ML Vial SQ SCH ×2 (08:39→22:02)
[2018-09-15] MEDS: Gabapentin 300 MG Capsule PO SCH ×2 (08:40→21:58)
[2018-09-15] MEDS: guaiFENesin 600 MG ER Tablet PO SCH ×2 (08:40→21:58)
[2018-09-15] MEDS: Enoxaparin Inj 30 MG/0.3 ML Syringe SQ SCH (08:40)
[2018-09-15] MEDS: Lisinopril 10 MG Tablet PO SCH ×2 (08:40→21:58)
[2018-09-15] MEDS: Tolterodine Tartrate LA 4 MG Capsule PO SCH (08:40)
[2018-09-15] MEDS: ARIPiprazole 2 MG Tablet PO SCH (08:40)
[2018-09-15] MEDS: Furosemide 20 MG Tablet PO SCH (08:40)
[2018-09-15] MEDS: Nystatin 100,000 UNITS/GM Powder 15 GM Bottle TOPICAL SCH ×4 (08:41→22:03)
[2018-09-15] MEDS: Senna/Docusate Sodium 8.6/50 MG Tablet PO SCH ×2 (08:41→21:58)
[2018-09-15] MEDS: Collagenase Oint 30 GM Tube TOPICAL SCH (08:41)
--- NOTE | 2018-09-15 08:59 | P.PNVS ---
Subjective Post Op Day #: 7 Procedure: LEFT Above The Knee Amputation Subjective/Hospital Course: Afebrile 72/F alert and pleasantly confused patient/NAD Pt does not endorse pain - appears comfortable Ecchymotic area to medial aspect of L AKA incision appears to be improving Left groin wound vac removed- Incision intact w/o R/D seroma noted distal end of incision line Objective Vital Signs / I&O: Vital Signs 09/14/18 12:00 09/14/18 16:00 09/14/18 20:00 Temperature 98.1 F 98.1 F 98.3 F Pulse Rate 126 H 111 H 117 H Respiratory Rate 14 15 20 Blood Pressure 115/59 L 123/60 126/49 L Pulse Oximetry 93 L 96 94 L 09/15/18 00:00 09/15/18 00:05 09/15/18 04:00 Temperature 98.5 F 97.8 F Pulse Rate 96 H 100 H 89 Respiratory Rate 20 18 Blood Pressure 115/56 L 136/65 Pulse Oximetry 94 L 95 Intake & Output 09/14/18 09/15/18 09/15/18 18:59 06:59 18:59 Intake Total 740 / 740 1000 / 1000 Balance 740 / 740 1000 / 1000 Weight 52.6 kg Intake: IV 740 / 740 1000 / 1000 Potassium Chlor 20 mEq/NACL 0. 740 / 740 1000 / 1000 45% Inj 1,000 ML @ 84 mls/hr IV .CONT .[id number] [facility] Rx#:[id number] Other: # Incontinent Voids 2 Date of Last Bowel Movement 09/14/18 # Incontinent Bowel Movements 1 Exam: Alert and confused/NAD Skin Warm and dry Improved ecchymotic area to LEFT AKA incision site (medial aspect)/No R/D/S Left groin incision I/C/D Laboratory Results - last 24 hr 09/13/18 09/14/18 09/14/18 11:38 06:05 12:18 WBC RBC Hgb Hct MCV MCH MCHC RDW Plt Count MPV Neut % (Auto) Lymph % (Auto) [place] % (Auto) Eos % (Auto) Baso % (Auto) Neut # (Auto) Lymph # (Auto) [place] # (Auto) Eos # (Auto) Baso # (Auto) WBC Differential . Diff Scan Auto diff confirmed Differential Comment Ovalocytes 1+ H Sodium Potassium Chloride Carbon Dioxide Anion Gap BUN Creatinine Estimated GFR POC Glucose 224 H 208 H Random Glucose Calcium Magnesium 09/14/18 09/14/18 09/15/18 16:59 19:30 04:53 WBC 20.5 H RBC 3.48 L Hgb 8.8 L Hct 28.0 L MCV 80.4 MCH 25.4 L MCHC 31.6 L RDW 16.4 Plt Count 567 H MPV 9.2 Neut % (Auto) 81.2 H Lymph % (Auto) 10.6 [place] % (Auto) 6.5 Eos % (Auto) 0.6 Baso % (Auto) 1.1 Neut # (Auto) 16.7 H Lymph # (Auto) 2.2 [place] # (Auto) 1.3 H Eos # (Auto) 0.1 Baso # (Auto) 0.2 WBC Differential . Diff Scan Differential Comment Auto diff final Ovalocytes Sodium Potassium Chloride Carbon Dioxide Anion Gap BUN Creatinine Estimated GFR POC Glucose 90 172 H Random Glucose Calcium Magnesium 09/15/18 09/15/18 04:53 07:30 WBC RBC Hgb Hct MCV MCH MCHC RDW Plt Count MPV Neut % (Auto) Lymph % (Auto) [place] % (Auto) Eos % (Auto) Baso % (Auto) Neut # (Auto) Lymph # (Auto) [place] # (Auto) Eos # (Auto) Baso # (Auto) WBC Differential Diff Scan Differential Comment Ovalocytes Sodium 143 Potassium 4.2 Chloride 109 H Carbon Dioxide 24.2 Anion Gap 10 BUN 13 Creatinine 0.68 Estimated GFR 85 L POC Glucose 154 H Random Glucose 133 H Calcium 9.0 Magnesium 1.9 Microbiology 09/12/18 03:40 Urine Culture - Final Catheterized Urine No growth in 48 hours Assessment and Plan - Assessment (1) PAD (peripheral artery disease) Code(s): I73.9 - Peripheral vascular disease, unspecified Status: Acute - Plan POD#7 s/p L AKA Plan Removed Prevena wound vac- LEFT groin Leave L groin incision open to air May apply a dry sterile dressing to L groin if drainage present Leonie Caldwell NP [facility] [phone] Discharge Planning: Cleared for d/c Arranged out pt follow up in 2W
[2018-09-15] MEDS: Nystatin Liq 500,000 UNIT/5 ML UDC SWISH-SWAL SCH ×4 (10:29→22:04)
--- NOTE | 2018-09-15 10:32 | P.PNPAL ---
Palliative care reconsulted to readdress goals of medical treatment. Spoke with via telephone. He verbalizes concern regarding patient's current medical condition, ongoing confusion, ability to discharge to [facility] vs residential facility. Offered emotional support through active listening. Answered his questions and concerns to the best of my ability. Verbalizes his eldest son will be coming into town tomorrow after 5pm to help support during this time. Appears goals remain aggressive with plans for rehab at discharge. Palliative care to continue conversations with medical update. Palliative care family meeting scheduled for Saturday 09/16 at 930-10am. Notified case management as wishes to discuss discharge options with them as well.
--- NOTE | 2018-09-15 11:23 | P.PNIM ---
Subjective Interval history: pt confused. had large bm Physical Exam Vital signs: Last Vital Signs Temp 98.3 F 09/15/18 08:00 Pulse 94 H 09/15/18 08:00 Resp 17 09/15/18 08:00 BP 158/68 H 09/15/18 08:00 Pulse Ox 95 09/15/18 08:00 Narrative: confused follows some commands heart reg lung sounds congested with cough. abd s/nt ext left groin. vac off. incisions mild ooze left aka incision. mild purplish discoloration Results Labs CBC & Chem 7: 09/15/18 04:53 09/15/18 04:53 Assessment and Plan Assessment (1) PAD (peripheral artery disease): Code(s): I73.9 - Peripheral vascular disease, unspecified Status: Acute Plan Nonhealing bilateral LE wounds (L worse than R) Severe PAD - Pt is a 72 y/o WF with HTN, Diabetes mellitus, CAD/Cardiomyopathy, hyperlipidemia, depression, Lumbar DDD/post-polio syndrome, aortic atherosclerosis, COPD/asthma and severe PAD. Per outpt records pt had a previous left open common femoral endarterectomy and ELHAM placement left common iliac to external iliac by Dr. iVv Meneses at [facility] on 05/21/18. Pt has had issues with wound healing which was not improved after this intervention. She has been receiving local wound care with [facility] wound care/Dr Best's office. She was seen at wound care office today and was recommended to report to the ED for further evaluation and antibiotics for two noted wounds, one on the right lateral leg and the other is a large LLE deep ulceration on the lateral aspect of the left lower leg with foul-smelling drainage and surrounding erythema. - WBC 8.9 (08/26), 10.7 (08/27), 9.3 (08/28) - Blood Cx (08/26) --> NGTD - Wound Gram stain (08/26) --> may gram negative rods. Many pleomorphic gram positive rods. - Wound Cx (08/26) --> MSSA - Vancomycin ( - 08/29) - Zosyn (08/26 - 08/29) - oxacillin (08/29 - 09/02) - Zosyn (09/02 - 09/11/18) - Appreciate input from Wound Care - Case d/w Dr. Frank (08/27). - Pt may require wound debridement in the OR - Case d/w Dr. Mauricio (08/30). - on 11/18/17 Pt underwent b/l LE revascularization procedure with Dr. Viv Meneses at [facility] - nearly occlusive left common femoral artery, high-grade proximal external iliac artery stenosis, moderate left common iliac artery disease however NO high grade stenosis. - placement of left distal common iliac to external ilac 6x40 self expanding stent - right common iliac artery with high-grade stenosis at its origin patent external iliac stent with moderate instent stenosis moderate to severe right common femoral disease - [place] increased to 10/325 Q4H PRN pain (home med) --> decrease back to 6h scheduled - Pt hd been planned for re-do LEFT groin reconstruction and LLE angiogram with endovascular intervention with Dr. Mauricio on Saturday09/01/18. She was taken to the OR but the scarring was extensive in the left leg and not reconstructable. - Pt/family met with Dr Mauricio on 09/03 and at that time were in agreement for LEFT AKA which was planned for 09/04, but now the pts daughter is not wanting to proceed with surgery so this has been placed on hold until the entire family can come to a decision about how best to proceed. - Pt was again scheduled for surgery 09/05 but daughter and family placed on hold again. - We had 3 of our Vascular surgeons agree she needs AKA and also Dr Mauricio spoke to a surgeon in [place] at the request of family who I'm told also agrees. Family wanted yet another recommendation and so Vascular consulted Ortho. The Orthopedic surgeon who saw the patient on 09/05 also agreed that AKA was most appropriate. - Per discussion with Dr. Jimenez who spoke extensively with the pts again on 09/06/18, the pt is tentatively planned for left AKA on Saturday. - Discussed with the pts at bedside and nursing staff that the pt needs to try to cough and clear out her secretions more. Her WBC count is increased to 15 today. She is starting to have some intermittent fevers and this could be related to atelectasis vs. developing pulmonary infection vs. worsening status of her LLE/infection - Check CXR (09/07/18) -->Stable chest without evidence of consolidating airspace disease and COPD - Glucerna added to her meals as she is drinking without difficulty but not eating much. Explained to the pts that without adequate nutrition she will have a difficult time with the healing process. - She has had some fevers for the last few days intermittently, likely related to the left leg ischemia but also chest congestion. The chest congestion is likely due to poor inspiratory effort. Cont. to encouraging deep cough, IS, mucolytic, nebs. - zosyn (09/02 - 09/11/18) - plavix - Pt is s/p Left AKA on 09/08/18 - Increased confusion on 09/09/18. - Pt and understand post op risk of poor wound healing and persistent decline. Pt still may ultimately benefit from hospice if surgery unsuccessful. - Pt cleared for discharge by Vascular Surgery (09/11/18) - UA (09/12) --> nitrates negative, leukocytes negative - C.Diff (09/11) . negative - ?aspirating - swallow eval with ST (09/13) --> mechanical soft, thin liquids - Repeat CT brain (09/13/18) --> NO acute findings - TSH, free T4, folate, ammonia --> WNL - RPR --> pending - IVFs CT chest ordered to look for evidence of pneumonia process. Plastic consult for sacral decubitus will need snf Delirium - Pt likely has underlying cognitive deficits/mild dementia based on my discussion with family. - Apparent superimposed delirium likely MF. 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 no acute cva - Urine cx with no growth in 48 hours. - meds/abx adjusted. - Post-op her mental status is decompensated, she is quite confused HTN - Lisinopril 10mg BID Diabetes mellitus - NovoLog SSI - Accu checks - Hold OHA - Levemir 5units PM & 10 units qAM Cardiomyopathy, EF 35-40% on echo in 12/2017 - Cont. Lasix and KCl at home dose - Replace potassium as needed. - monitor labs Depression - Cont. home meds COPD Asthma - Cont. home meds - Schedule Duonebs Q6H [place] and Duonebs PRN - Mucinex - Acapella/IS - Pulmonary toileting Progress Note: Quality VTE Deep Vein Thrombosis/Pulmonary Embolism Present on Admission: No
--- NOTE | 2018-09-15 13:32 | P.PNWCN ---
Wound Care Nurse Consult Description: Received pressure ulcer consult for sacral area from Macie KIM Communicated with: CHILO vance and Doctor Michael Recommendation: 1. Please cleanse sacral wound with normal saline only and pat dry. 2. Apply Santyl may thickness to wound bed 3 Pack wound loosely with saline moistened 2x2 fluffed gauze. 4. Apply skin barrier film (skin prep) to periwound. 5. Cover wound with optifoam gentle 4x4, available through misogram only. 6. Change dressing daily. 7. Please turn patient every 2 hours and PRN from L side to R side, limiting time spent on back to P.T. and meals. 8. Limit use of layers under patient. 9. Do not apply briefs on patient. 10. Do not use cotton underpads under patient. Wound/Pressure Injury - Wound Sacrum Wound Assessment: Ongoing Wound Type: Pressure Injury Is This a Chronic Wound: No Requested from Provider a Wound Care Consult: Yes Length (cm): 2.1 Width (cm): 2.1 Depth (cm): 1.4 (~1.4 with 100% slough ) Wound Bed Appearance: Yellow Wound Bed Appearance: 100% yellow moist slough Surrounding Tissue Appearance: Blanched/Dull, [place] Surrounding Tissue Temperature: Cool Drainage Description: Serosanguinous Drainage Amount: Scant Drainage Odor: No Odor Dressing Status: Changed Cleansing Solution: Saline Topical: Enzymatic Debridement Ointment Wound Packing Type: Gauze Pads Primary Dressing: Gauze Pad Cover Dressing: Bordered gauze Wound Dressing Change Date: 09/15/18 Wound Margin Description: Wound margins appear open, steep and even. - Additional Information Patient seen today on for evaluation of sacral pressure ulcer. Patient seen with CHILO vance. Patient was turned with the maximum assistance of CHILO Neumann and Hearse Driver toward the L side, to reveal open wound on sacral area. Wound presents as deep wound with 100% yellow moist slough. Wound drainage is scant and without foul odor. Periwound is pink and blanchable, but otherwise unremarkable.Wound margins are even, well defined, steep, with round wound shape. Wound was cleansed with normal saline and patted dry.Applied Santyl may thickness to wound bed with saline moistened fluffed gauze, loosely packed to wound bed. Applied Cavilon skin barrer film (skin Prep) to periwound and covered wound with StrataSorb composite dressing. Cover dressing is temporary until Optifoam gentle 4x4 is available.Patient tolerated dressing change, and wound assessment fairly with some complaints of pain with cleaning of wound.Patient was positioned off bottom toward the R side. Wound description , measurements and wound care recommendations are noted above.
--- NOTE | 2018-09-15 19:25 | CT ---
EXAM DATE: 09/15/2018 7:10 PM EST AGE/SEX: 72 years / Female INDICATIONS: Evaluate for effusion versus infiltrate. CLINICAL DATA: This is the patient's initial encounter. Patient reports that signs and symptoms have been present for 1 day and indicates a pain score of 0/10. MEDICAL/SURGICAL HISTORY: Diabetes mellitus type II. Cardiovascular disease. Peripheral artery di sease. . Amputation below left knee. Iliac artery stent RADIATION DOSE: 10.63 CTDI (mGy) COMPARISON: [facility] – [place], [place], CT THORAX W/O CONTRAST, 10/21/2016. . TECHNIQUE: Multiple contiguous axial images were obtained through the chest without contrast. Image s were obtained in suspended respiration using multiple row detector helical technique. Using automa earnest exposure control and adjustment of the mA and/or kV according to patient size, radiation dose was kept as low as reasonably achievable to obtain optimal diagnostic quality images. DICOM format imag e data is available electronically for review and comparison. FINDINGS: Lungs: There are couple of tiny nodules in the lateral aspect of the right upper lobe. There is no e vidence of infiltrate. Mediastinum: Dense atherosclerotic calcifications including what appears to be total calcific occlus ion of the left subclavian artery.. No evidence of mediastinal mass or adenopathy. Small pericardial effusion. Pleurae: No evidence of focal thickening or pleural effusion. Axillae: Unremarkable. Bony Structures: Unremarkable. Miscellaneous: Bilateral low density adrenal masses which were present previously. CONCLUSION: 1. Tiny right lung nodules which appear benign 2. No significant consolidative infiltrate. 3. Stable tiny pericardial effusion 4. Stable adrenal masses. Electronically signed by: Anup Dorado MD Board Certified Radiologist 09/15/2018 7:24 PM EST
--- NOTE | 2018-09-15 21:16 | ECG ---
Date Performed: 09/14/2018 Time Performed: 18:17:10 PTAGE: 72 years EKG: SINUS TACHYCARDIA WITH SHORT AZ INTERVAL NONSPECIFIC T-WAVE ABNORMALITY ABNORMAL RHYTHM ECG PREVIOUS TRACING : 09/01/2018 07.01 Since the previous tracing, no significant change noted DOCTOR: Ten Samson Interpretating Date/Time 09/15/2018 21:14:19
[2018-09-16] MEDS: KCL 20 mEq/NACL 0.45% Inj 1,000 ML IV.CONT SCH ×2 (03:58→16:49)
[2018-09-16 06:16] LABS: Baso # (Auto) 0.1 th/mm3 (0.0-0.2); Baso % (Auto) 0.6 % (0.0-2.0); Eos # (Auto) 0.1 th/mm3 (0.0-0.4); Eos % (Auto) 0.7 % (0.0-4.0); Hematocrit 26.4 % (35.0-46.0); Hemoglobin 8.5 gm/dL (11.6-15.3); Lymph % (Auto) 11.2 % (9.0-44.0); Mean Corpuscular HGB Conc 32.3 % (32.0-36.0); Mean Corpuscular Hemoglobin 25.4 pg (27.0-34.0); Mean Corpuscular Volume 78.7 fL (80.0-100.0); Mean Platelet Volume 8.9 fL (7.0-11.0); Mono # (Auto) 1.1 th/mm3 (0.0-0.9); Mono % (Auto) 6.3 % (0.0-8.0); Neut # (Auto) 14.6 th/mm3 (1.8-7.7); Neut % (Auto) 81.2 % (16.0-70.0); Platelet Count 527 th/mm3 (150-450); Red Blood Count 3.35 mil/mm3 (4.00-5.30); Red Cell Distribution Width 16.1 % (11.6-17.2); White Blood Count 17.9 th/mm3 (4.0-11.0)
[2018-09-16 06:45] LABS: Anion Gap 9 meq/L (5-15); Blood Urea Nitrogen 13 mg/dL (7-18); Calcium 8.7 mg/dL (8.5-10.1); Carbon Dioxide 23.7 meq/L (21.0-32.0); Chloride 104 meq/L (98-107); Glomerular Filtration Rate Greater Than 89 mL/min (>89); Glucose,Random 140 mg/dL (74-106); Potassium 4.2 meq/L (3.5-5.1); Sodium 137 meq/L (136-145)
[2018-09-16] MEDS: ARIPiprazole 2 MG Tablet PO SCH (09:03)
[2018-09-16] MEDS: Furosemide 20 MG Tablet PO SCH (09:04)
[2018-09-16] MEDS: Senna/Docusate Sodium 8.6/50 MG Tablet PO SCH ×3 (09:04→21:02)
[2018-09-16] MEDS: Gabapentin 300 MG Capsule PO SCH ×2 (09:04→21:03)
[2018-09-16] MEDS: Lisinopril 10 MG Tablet PO SCH ×2 (09:04→21:03)
[2018-09-16] MEDS: Insulin NovoLOG Aspart Correctional Sugar Inj SQ SCH ×4 (09:04→21:05)
[2018-09-16] MEDS: Tolterodine Tartrate LA 4 MG Capsule PO SCH (09:04)
[2018-09-16] MEDS: guaiFENesin 600 MG ER Tablet PO SCH ×2 (09:04→21:03)
[2018-09-16] MEDS: Insulin Detemir Inj 1,000 UNIT/10 ML Vial SQ SCH ×2 (09:05→21:13)
[2018-09-16] MEDS: Enoxaparin Inj 30 MG/0.3 ML Syringe SQ SCH (09:05)
[2018-09-16] MEDS: Nystatin Liq 500,000 UNIT/5 ML UDC SWISH-SWAL SCH ×4 (09:06→21:04)
[2018-09-16] MEDS: Nystatin 100,000 UNITS/GM Powder 15 GM Bottle TOPICAL SCH ×4 (09:06→21:06)
--- NOTE | 2018-09-16 09:32 | P.PNIM ---
Subjective Interval history: Patient continues to be confused offers no new concerns/complaints Physical Exam Vital signs: Last Vital Signs Temp 97.2 F L 09/16/18 08:00 Pulse 93 H 09/16/18 08:00 Resp 19 09/16/18 08:00 BP 106/56 L 09/16/18 08:00 Pulse Ox 96 09/16/18 08:00 Narrative: confused follows some commands heart reg lung sounds congested with cough. abd s/nt ext left groin. vac off. incisions mild ooze left aka incision. mild purplish discoloration Results Labs CBC & Chem 7: 09/16/18 05:48 09/16/18 05:48 Assessment and Plan Assessment (1) PAD (peripheral artery disease): Code(s): I73.9 - Peripheral vascular disease, unspecified Status: Acute Plan Nonhealing bilateral LE wounds (L worse than R) Severe PAD - Pt is a 72 y/o WF with HTN, Diabetes mellitus, CAD/Cardiomyopathy, hyperlipidemia, depression, Lumbar DDD/post-polio syndrome, aortic atherosclerosis, COPD/asthma and severe PAD. Per outpt records pt had a previous left open common femoral endarterectomy and ELHAM placement left common iliac to external iliac by Dr. Viv Meneses at [facility] on 05/21/18. Pt has had issues with wound healing which was not improved after this intervention. She has been receiving local wound care with [facility] wound care/Dr Best's office. She was seen at wound care office today and was recommended to report to the ED for further evaluation and antibiotics for two noted wounds, one on the right lateral leg and the other is a large LLE deep ulceration on the lateral aspect of the left lower leg with foul-smelling drainage and surrounding erythema. - WBC 8.9 (08/26), 10.7 (08/27), 9.3 (08/28) - Blood Cx (08/26) --> NGTD - Wound Gram stain (08/26) --> may gram negative rods. Many pleomorphic gram positive rods. - Wound Cx (08/26) --> MSSA - Vancomycin ( - 08/29) - Zosyn (08/26 - 08/29) - oxacillin (08/29 - 09/02) - Zosyn (09/02 - 09/11/18) - Appreciate input from Wound Care - Case d/w Dr. Frank (08/27). - Pt may require wound debridement in the OR - Case d/w Dr. Mauricio (08/30). - on 11/18/17 Pt underwent b/l LE revascularization procedure with Dr. Viv Meneses at [facility] - nearly occlusive left common femoral artery, high-grade proximal external iliac artery stenosis, moderate left common iliac artery disease however NO high grade stenosis. - placement of left distal common iliac to external ilac 6x40 self expanding stent - right common iliac artery with high-grade stenosis at its origin patent external iliac stent with moderate instent stenosis moderate to severe right common femoral disease - Laie increased to 10/325 Q4H PRN pain (home med) --> decrease back to 6h scheduled - Pt hd been planned for re-do LEFT groin reconstruction and LLE angiogram with endovascular intervention with Dr. Mauricio on Saturday09/01/18. She was taken to the OR but the scarring was extensive in the left leg and not reconstructable. - Pt/family met with Dr Mauricio on 09/03 and at that time were in agreement for LEFT AKA which was planned for 09/04, but now the pts daughter is not wanting to proceed with surgery so this has been placed on hold until the entire family can come to a decision about how best to proceed. - Pt was again scheduled for surgery 09/05 but daughter and family placed on hold again. - We had 3 of our Vascular surgeons agree she needs AKA and also Dr Mauricio spoke to a surgeon in OR at the request of family who I'm told also agrees. Family wanted yet another recommendation and so Vascular consulted Ortho. The Orthopedic surgeon who saw the patient on 09/05 also agreed that AKA was most appropriate. - Per discussion with Dr. Jimenez who spoke extensively with the pts again on 09/06/18, the pt is tentatively planned for left AKA on Saturday. - Discussed with the pts at bedside and nursing staff that the pt needs to try to cough and clear out her secretions more. Her WBC count is increased to 15 today. She is starting to have some intermittent fevers and this could be related to atelectasis vs. developing pulmonary infection vs. worsening status of her LLE/infection - Check CXR (09/07/18) -->Stable chest without evidence of consolidating airspace disease and COPD - Glucerna added to her meals as she is drinking without difficulty but not eating much. Explained to the pts that without adequate nutrition she will have a difficult time with the healing process. - She has had some fevers for the last few days intermittently, likely related to the left leg ischemia but also chest congestion. The chest congestion is likely due to poor inspiratory effort. Cont. to encouraging deep cough, IS, mucolytic, nebs. - zosyn (09/02 - 09/11/18) - plavix - Pt is s/p Left AKA on 09/08/18 - Increased confusion on 09/09/18. - Pt and understand post op risk of poor wound healing and persistent decline. Pt still may ultimately benefit from hospice if surgery unsuccessful. - Pt cleared for discharge by Vascular Surgery (09/11/18) - UA (09/12) --> nitrates negative, leukocytes negative - C.Diff (09/11) . negative - ?aspirating - swallow eval with ST (09/13) --> mechanical soft, thin liquids - Repeat CT brain (09/13/18) --> NO acute findings - TSH, free T4, folate, ammonia --> WNL - RPR --> pending - IVFs CT chest ordered to look for evidence of pneumonia process. Plastic consult for sacral decubitus will need snf Delirium - Pt likely has underlying cognitive deficits/mild dementia based on my discussion with family. - Apparent superimposed delirium likely MF. 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 no acute cva - Urine cx with no growth in 48 hours. - meds/abx adjusted. - Post-op her mental status is decompensated, she is quite confused - consult psych for evaluation of AMS Sacral wound unstable sacral wound wound care consulted plastic surgery consulted Length 2.1cm Width 2.1 cm Depth 1.4 with slough per plastic surgery daily wound care: Clean the sacral decubitus with saline, dress with Betadine solution soaked gauze and use soft padding. HTN - Lisinopril 10mg BID Diabetes mellitus - NovoLog SSI - Accu checks - Hold OHA - Levemir 5units PM & 10 units qAM Cardiomyopathy, EF 35-40% on echo in 12/2017 - Cont. Lasix and KCl at home dose - Replace potassium as needed. - monitor labs Depression - Cont. home meds COPD Asthma - Cont. home meds - Schedule Duonebs Q6H WA and Duonebs PRN - Mucinex - Acapella/IS - Pulmonary toileting family meeting with palliative care this AM Progress Note: Quality VTE Deep Vein Thrombosis/Pulmonary Embolism Present on Admission: No
--- NOTE | 2018-09-16 10:29 | MB ---
cc: Robin Coker MD DATE: 09/15/2018 REASON FOR CONSULTATION: Sacral decubitus. HISTORY OF PRESENT ILLNESS: This is a 72-year-old female admitted to the surgical floor with a history of a left lower extremity gangrene who recently has undergone a [id number] amputation. The patient is under combined care of the medical team and vascular surgery. Also, she is being evaluated by the palliative care team. The patient was referred to me for a small sacral decubitus ulcer that she has. She has previously been in wound care with Dr. Best at the [facility]. The patient is unable to communicate meaningfully, although she does speak. The history is obtained from the available medical records. She is a 72-year-old white female with a history of active hypertension, diabetes, coronary artery disease, cardiomyopathy, hyperlipidemia, also depression and asthma. Her current admission is related to the severe peripheral vascular arterial disease. She also has a history of polio in the past. Recently, she had a left common femoral endarterectomy and a graft placement in the iliac area at the [facility]. Subsequently, she has been treated for open wounds on the lower extremity in the foot area at the [facility]. Eventually, she was admitted on 08/26/2018, at [facility] with gangrene and foul smelling left lower leg wounds. The patient eventually underwent [id number] amputation on 09/08/2018, by Dr. Bill Jmienez. The patient has been bedridden for most part. A sacral decubitus ulcer with superficial tissue loss was noted during her stay and it is being referred to me for further care. PAST MEDICAL HISTORY: Again is listed hypertension, diabetes, kidney disease, coronary artery disease, cardiomyopathy, hyperlipidemia, lumbar polio syndrome, carotid stenosis, aortic stenosis, depression, COPD, and recurrent severe peripheral vascular disease. PAST SURGICAL HISTORY: Includes the vascular surgery of the left iliac and femoral artery, also in the past gallbladder, , and cataract. SOCIAL HISTORY: There is a history prolonged smoking. No alcohol or drug abuse. PHYSICAL EXAMINATION: Physical examination shows a 72-year-old white female at rest in the hospital bed. She was examined with the help of her nurse. General examination is grossly within acceptable range. The recent BKA is showing some mottling of the skin at the stump. There seems to be a significant amount of edema, possibly some redness, but no gross sign of a hematoma noted. The patient seems slightly warm to touch, but not significantly febrile. The local examination of the decubitus ulcer was carried out with the help of the nurse. It is present in the sacrococcygeal junction area. It is about a 2.5 cm in diameter. It has full-thickness skin necrosis with grayish necrotic skin. The surrounding area is not acutely inflamed. There is no purulent discharge or smell noted from this area. The patient does not have any other decubitus ulcers in the nearby region. The patient has been receiving Santyl collagenase dressings according to the nurse. DIAGNOSTIC DATA: The laboratory test shows a current white blood count up to 20,000. It has increased steadily over the last several days. She is not acutely anemic. RECOMMENDATIONS: In the patient's current surgical and medical status, a conservative care of the decubitus ulcer is recommended. I will change the application of Santyl to straight Betadine-soaked gauze in order to dry out the necrotic tissues and keep them from becoming mushy and possibly keep them semi-sterile with the use of the Betadine dressing. The patient may eventually need some surgical care to excise the tissue if it is does not slough off by itself. Presently, there is no immediate indication for a reconstructive effort as the patient is going to be bedridden for quite the foreseeable time. The amputation stump may need further care by the vascular surgeon. I will be available and follow the patient as needed. signed, not fully reviewed MD ELIF Irby/gosia , 09:46 AM , 10:04 AM TYREE
--- NOTE | 2018-09-16 11:42 | P.PNPAL ---
Reason for Visit Reason for visit: a. To assist with evaluation and management of symptoms including: Pain, confusion, physical deconditioning b. To assist medical decision maker(s) with: better understanding of current medical conditions; weighing benefits/burdens of medical treatment options; making medical treatment decisions. Subjective Subjective/Interval History: Patient seen and examined in room, at bedside. Also present Paulina Cristobal LCSW. Patient is oriented to self, she is able to tell me her name and date of . She tells me she is here because her "back hurts." She is yelling out intermittently, confused. She parrots some of what I say. Upon my arrival to room. Dr. Graham was leaving the room. He will make medication adjustments for management of delirium. Discussed with Dr. Rodriguez and Lizeth Porter prior to my visit. All are concerned with continue decline, persistent delirium, elevated WBC, no signs of active infection at this time and her overall poor prognosis/ ability to rehabilitate to return home. She remains high risk for further setbacks/ decline given poor nutritional. cognitive and functional status. She is hospice appropriate if goals become comfort oriented. Lengthy conversation with Mr. Trivedi, he is realistic and verbalizes the same fears as the medical team has. He tells us stories of family/ friends who have had similar decline that lead to eventual . He would like to try rehab in hopes she will have some improvement and more time, though is open to consideration of hospice should her condition not improve or worsen. . Family/Friend Interactions: See interval note. Advance Directives Living Will: Never completed Health Care Surrogate: Never completed Durable Power of Process Engineering Intern: Never completed Documented care wishes:: Never completed advanced directives. . Significant change in goals:: NO CODE (DNR/DNI). Spouse wants to try rehab, open to consideration of hospice if patient has further decline or fails rehab. Spouse plans to go visit rehab centers in effort to make a decision regarding facilities. Objective Vital Signs: Vital Signs 09/15/18 12:00 09/15/18 16:00 09/15/18 20:00 Temperature 97.6 F 98.8 F 98.5 F Pulse Rate 101 H 100 H 94 H Respiratory Rate 18 17 17 Blood Pressure 116/56 L 130/60 116/60 Pulse Oximetry 92 L 93 L 96 09/15/18 21:40 09/15/18 23:50 09/16/18 04:00 Temperature 98.3 F 97.1 F L Pulse Rate 108 H 107 H 90 Respiratory Rate 18 18 Blood Pressure 119/56 L 139/66 Pulse Oximetry 95 96 09/16/18 08:00 Temperature 97.2 F L Pulse Rate 93 H Respiratory Rate 19 Blood Pressure 106/56 L Pulse Oximetry 96 Intake & Output 09/15/18 09/16/18 09/16/18 18:59 06:59 18:59 Intake Total 1000 / 1000 1240 / 1240 Balance 1000 / 1000 1240 / 1240 Weight 52.6 kg Intake: IV 1000 / 1000 1000 / 1000 Potassium Chlor 20 mEq/NACL 0. 1000 / 1000 1000 / 1000 45% Inj 1,000 ML @ 84 mls/hr IV .CONT .[id number] [facility] Rx#:[id number] Oral 240 / 240 Other: # Incontinent Voids 2 Date of Last Bowel Movement 09/15/18 09/15/18 Physical Exam: CONSTITUTIONAL/GENERAL: This is a confused, frail, elderly patient, in no apparent distress. TUBES/LINES/DRAINS: PIV. SKIN: No jaundice, rashes. Ecchymoses on upper extremities. Ulcer to right lower extremity. Left AKA, dressing x 2 to stump with yellowish drainage to dressing, left upper thigh, purplish discoloration noted. EYES: Pupils equal and round and reactive. ENT: Hard of hearing. Nose without bleeding or purulent drainage. Moist oral mucosa. CARDIOVASCULAR: Regular rate and rhythm. RESPIRATORY/CHEST: Coarse breath sounds bilaterally, moist cough noted. GASTROINTESTINAL: Abdomen soft, non-tender, nondistended. No guarding. Bowel sounds present. GENITOURINARY: Without palpable bladder distension. MUSCULOSKELETAL: Left AKA. NEUROLOGICAL: Awake, confused. oriented to self. Moves all extremities. PSYCHIATRIC: Confused, yells out periodically. Diagnostic Tests Laboratory: Laboratory Results - last 72 hr 09/13/18 09/13/18 09/13/18 04:49 11:38 15:40 WBC RBC Hgb Hct MCV MCH MCHC RDW Plt Count MPV Prelim Diff (Auto) Neut % (Auto) Lymph % (Auto) [place] % (Auto) Eos % (Auto) Baso % (Auto) Neut # (Auto) Lymph # (Auto) [place] # (Auto) Eos # (Auto) Baso # (Auto) WBC Differential Manual diff final Diff Scan Seg Neuts % (Manual) 73 H Band Neuts % (Manual) 1 Lymphocytes % (Manual) 10 Monocytes % (Manual) 15 H Myelocytes % (Man) 1 H Abs Neuts (Manual) 12.5 H Differential Comment Platelet Estimate High H Platelet Morphology Normal Dimorphic RBCs Present H Spherocytes Occ H Ovalocytes 1+ H Sodium Potassium Chloride Carbon Dioxide Anion Gap BUN Creatinine Estimated GFR POC Glucose 224 H Random Glucose Calcium Magnesium Ammonia 22 Vitamin B12 Folate TSH Free T4 RPR 09/13/18 09/13/18 09/13/18 15:40 15:40 16:57 WBC RBC Hgb Hct MCV MCH MCHC RDW Plt Count MPV Prelim Diff (Auto) Neut % (Auto) Lymph % (Auto) [place] % (Auto) Eos % (Auto) Baso % (Auto) Neut # (Auto) Lymph # (Auto) [place] # (Auto) Eos # (Auto) Baso # (Auto) WBC Differential Diff Scan Seg Neuts % (Manual) Band Neuts % (Manual) Lymphocytes % (Manual) Monocytes % (Manual) Myelocytes % (Man) Abs Neuts (Manual) Differential Comment Platelet Estimate Platelet Morphology Dimorphic RBCs Spherocytes Ovalocytes Sodium Potassium Chloride Carbon Dioxide Anion Gap BUN Creatinine Estimated GFR POC Glucose 97 Random Glucose Calcium Magnesium Ammonia Vitamin B12 435 Folate Greater than 20.0 H TSH 2.950 Free T4 1.08 RPR Nonreactive 09/13/18 09/14/18 09/14/18 19:48 06:05 06:05 WBC 19.4 H RBC 3.65 L Hgb 9.1 L Hct 29.5 L MCV 80.9 MCH 25.0 L MCHC 30.9 L RDW 16.5 Plt Count 597 H MPV 9.1 Prelim Diff (Auto) Slide review pending Neut % (Auto) 83.0 H Lymph % (Auto) 9.1 [place] % (Auto) 6.8 Eos % (Auto) 0.3 Baso % (Auto) 0.8 Neut # (Auto) 16.1 H Lymph # (Auto) 1.8 [place] # (Auto) 1.3 H Eos # (Auto) 0.1 Baso # (Auto) 0.2 WBC Differential . Diff Scan Auto diff confirmed Seg Neuts % (Manual) Band Neuts % (Manual) Lymphocytes % (Manual) Monocytes % (Manual) Myelocytes % (Man) Abs Neuts (Manual) Differential Comment . Platelet Estimate Platelet Morphology Dimorphic RBCs Spherocytes Ovalocytes 1+ H Sodium 142 Potassium 4.5 D Chloride 108 H Carbon Dioxide 24.5 Anion Gap 10 BUN 18 Creatinine 0.89 Estimated GFR 62 L POC Glucose 186 H Random Glucose 197 H D Calcium 8.9 Magnesium 1.8 Ammonia Vitamin B12 Folate TSH Free T4 RPR 09/14/18 09/14/18 09/14/18 08:09 12:18 16:59 WBC RBC Hgb Hct MCV MCH MCHC RDW Plt Count MPV Prelim Diff (Auto) Neut % (Auto) Lymph % (Auto) [place] % (Auto) Eos % (Auto) Baso % (Auto) Neut # (Auto) Lymph # (Auto) [place] # (Auto) Eos # (Auto) Baso # (Auto) WBC Differential Diff Scan Seg Neuts % (Manual) Band Neuts % (Manual) Lymphocytes % (Manual) Monocytes % (Manual) Myelocytes % (Man) Abs Neuts (Manual) Differential Comment Platelet Estimate Platelet Morphology Dimorphic RBCs Spherocytes Ovalocytes Sodium Potassium Chloride Carbon Dioxide Anion Gap BUN Creatinine Estimated GFR POC Glucose 219 H 208 H 90 Random Glucose Calcium Magnesium Ammonia Vitamin B12 Folate TSH Free T4 RPR 09/14/18 09/15/18 09/15/18 19:30 04:53 04:53 WBC 20.5 H RBC 3.48 L Hgb 8.8 L Hct 28.0 L MCV 80.4 MCH 25.4 L MCHC 31.6 L RDW 16.4 Plt Count 567 H MPV 9.2 Prelim Diff (Auto) Neut % (Auto) 81.2 H Lymph % (Auto) 10.6 [place] % (Auto) 6.5 Eos % (Auto) 0.6 Baso % (Auto) 1.1 Neut # (Auto) 16.7 H Lymph # (Auto) 2.2 [place] # (Auto) 1.3 H Eos # (Auto) 0.1 Baso # (Auto) 0.2 WBC Differential . Diff Scan Seg Neuts % (Manual) Band Neuts % (Manual) Lymphocytes % (Manual) Monocytes % (Manual) Myelocytes % (Man) Abs Neuts (Manual) Differential Comment Auto diff final Platelet Estimate Platelet Morphology Dimorphic RBCs Spherocytes Ovalocytes Sodium 143 Potassium 4.2 Chloride 109 H Carbon Dioxide 24.2 Anion Gap 10 BUN 13 Creatinine 0.68 Estimated GFR 85 L POC Glucose 172 H Random Glucose 133 H Calcium 9.0 Magnesium 1.9 Ammonia Vitamin B12 Folate TSH Free T4 RPR 09/15/18 09/15/18 09/15/18 07:30 13:01 17:33 WBC RBC Hgb Hct MCV MCH MCHC RDW Plt Count MPV Prelim Diff (Auto) Neut % (Auto) Lymph % (Auto) [place] % (Auto) Eos % (Auto) Baso % (Auto) Neut # (Auto) Lymph # (Auto) [place] # (Auto) Eos # (Auto) Baso # (Auto) WBC Differential Diff Scan Seg Neuts % (Manual) Band Neuts % (Manual) Lymphocytes % (Manual) Monocytes % (Manual) Myelocytes % (Man) Abs Neuts (Manual) Differential Comment Platelet Estimate Platelet Morphology Dimorphic RBCs Spherocytes Ovalocytes Sodium Potassium Chloride Carbon Dioxide Anion Gap BUN Creatinine Estimated GFR POC Glucose 154 H 87 167 H Random Glucose Calcium Magnesium Ammonia Vitamin B12 Folate TSH Free T4 RPR 09/15/18 09/16/18 09/16/18 21:54 05:48 05:48 WBC 17.9 H RBC 3.35 L Hgb 8.5 L Hct 26.4 L MCV 78.7 L MCH 25.4 L MCHC 32.3 RDW 16.1 Plt Count 527 H MPV 8.9 Prelim Diff (Auto) Neut % (Auto) 81.2 H Lymph % (Auto) 11.2 [place] % (Auto) 6.3 Eos % (Auto) 0.7 Baso % (Auto) 0.6 Neut # (Auto) 14.6 H Lymph # (Auto) 2.0 [place] # (Auto) 1.1 H Eos # (Auto) 0.1 Baso # (Auto) 0.1 WBC Differential . Diff Scan Seg Neuts % (Manual) Band Neuts % (Manual) Lymphocytes % (Manual) Monocytes % (Manual) Myelocytes % (Man) Abs Neuts (Manual) Differential Comment Auto diff final Platelet Estimate Platelet Morphology Dimorphic RBCs Spherocytes Ovalocytes Sodium 137 Potassium 4.2 Chloride 104 Carbon Dioxide 23.7 Anion Gap 9 BUN 13 Creatinine 0.60 Estimated GFR Greater than 89 POC Glucose 142 H Random Glucose 140 H Calcium 8.7 Magnesium Ammonia Vitamin B12 Folate TSH Free T4 RPR 09/16/18 07:37 WBC RBC Hgb Hct MCV MCH MCHC RDW Plt Count MPV Prelim Diff (Auto) Neut % (Auto) Lymph % (Auto) [place] % (Auto) Eos % (Auto) Baso % (Auto) Neut # (Auto) Lymph # (Auto) [place] # (Auto) Eos # (Auto) Baso # (Auto) WBC Differential Diff Scan Seg Neuts % (Manual) Band Neuts % (Manual) Lymphocytes % (Manual) Monocytes % (Manual) Myelocytes % (Man) Abs Neuts (Manual) Differential Comment Platelet Estimate Platelet Morphology Dimorphic RBCs Spherocytes Ovalocytes Sodium Potassium Chloride Carbon Dioxide Anion Gap BUN Creatinine Estimated GFR POC Glucose 159 H Random Glucose Calcium Magnesium Ammonia Vitamin B12 Folate TSH Free T4 RPR Result Diagrams: 09/16/18 05:48 09/16/18 05:48 Microbiology: Microbiology 09/12/18 03:40 Urine Culture - Final Catheterized Urine No growth in 48 hours Imaging: Aorta w/Runoff CTA 08/27/18 00:00 CONCLUSION: 1. Extensive arteriosclerotic calcification with diffuse areas of mild luminal narrowing both inflow and outflow. There is one segment in the proximal left superficial femoral artery with greater than 70% narrowing. 2. Bilateral adrenal masses, stable from 2017. Extremity Arterial Study 08/27/18 00:00 CONCLUSION: 1. Severely decreased ankle-brachial indices bilaterally also reflected on toe brachial indices. Findings are consistent with severe bilateral lower extremity arterial disease, left greater than right. Abdomen X-Ray 08/30/18 06:00 CONCLUSION: Negative KUB. Head CT 09/13/18 00:00 CONCLUSION: No acute intracranial findings. . Chest X-Ray 09/14/18 08:00 CONCLUSION: No acute cardiopulmonary disease. Chest CT 09/15/18 00:00 CONCLUSION: 1. Tiny right lung nodules which appear benign 2. No significant consolidative infiltrate. 3. Stable tiny pericardial effusion 4. Stable adrenal masses. Procedures: 09/01/18-left groin exploration without endovascular repair Left AKA. . Assessment and Plan - Disease Oriented Problem List (1) PAD (peripheral artery disease) (2) Diabetes mellitus (3) Cardiomyopathy (4) CAD (coronary artery disease) (5) COPD (chronic obstructive pulmonary disease) (6) HTN (hypertension) (7) Hyperlipidemia - Symptom Scale (1) Pain 0-10 Scale: Unable to quantify Comment: reports back pain and LLE pain, unable to quantify or qualify. (2) Confusion 0-10 Scale: Unable to quantify Comment: Acute confusion. (3) Physical deconditioning 0-10 Scale: Unable to quantify Comment: Progressive. . Pertinent Non-Medical Issues: Psychosocial: Patient is . Patient has 3 adult children 2 sons and 1 daughter. Retired. Currently resides at home with her . Spiritual: Patient is Alevism Legal: Patient never completed advanced directives. Ethical issues impacting care: None identified at this time. . Important Contacts: Spouse-Zach Trivedi -[phone] Daughter-Luisa Trivedi-[phone] Prognosis: Ms Trivedi is a 72 years old female with a past medical history significant for peripheral arterial disease, diabetes mellitus, chronic lower extremity wounds, hypertension, coronary artery disease/cardiomyopathy, hyperlipidemia, depression, lumbar DDD/post polio syndrome, aortic artherosclerosis, COPD/ asthma and is a smoker. Patient presented to the emergency room on 08/26/18 for evaluation of wounds to his lower extremities. Clinical course complicated with confusion,and worsening wounds to lower extremities. Given multiple ongoing comorbidities, patient remains at high risk for further complications, deterioration and decline. Hospice appropriate if goals are comfort oriented. . Code Status: No Code DNR Plan: PLAN: * Legal decision maker: Patient is confused, she is not capacitated to make her own health care decisions. Uncertain if she will regain capacity. Health care proxy decision making falls to her spouse in accordance to [place] statutes. * Goals: Lengthy conversation with spouse to provide medical update, review prognosis and clarification of goals of medical treatment. He elects NO CODE, indicating he wants her to go to [facility] if it is her time. He is going to look at rehab facilities. I advised she will not likely return home and my concerns about her ability to rehabilitate to get strong enough to return home, he agrees. He is realistic in his understanding that she will not likely return to her previous cognitive, functional or nutritional status. Spouse wants to try rehab, and seems open to consideration of hospice if her condition does not improve or if it worsens. Palliative care number provided. One of their 3 children will arrive later today, offered to answer his questions if needed. * NO CODE (DNR/DNI) - will need to complete [place] DNR prior to DC. SYMPTOMS: * Pain: Patient has chronic wounds to bilateral lower extremities left worse than right. S/P left AKA, dressing in place with yellowish drainage. Pain is currently managed with hydrocodone/acetaminophen 5/325 every 8 hours prn, sparing need - she has had 1 dose in the past 24 hours. No adjustments in pain medication at this time given persistent delirium. * Confusion: History of baseline dementia. Worsening confusion during hospitalization. Head CT negative for acute abnormality/hemorrhage. During examination patient is alert and oriented to self, place and situation. Dr. Graham will provide medication for delirium, will monitor effect. * Physical deconditioning: Progressive. Patient has multiple ongoing comorbidities and worsening chronic bilateral lower extremity wounds. Patient ambulated with a walker prior to hospitalization. Patient needs left AKA. If goals remain aggressive patient will require physical therapy and most likely rehabilitation. * Palliative care will continue to follow the patient during hospital course as condition evolves, to assist patient/decision-maker with understanding of their medical conditions, weighing benefits/burdens of treatment options, for clarification of goals of treatment. Additionally will assist with any symptoms of palliative concern. Attestation Attestation: To help prompt me to consider important information that might be impacting today's encounter and assessment, information from prior notes written by myself or my colleagues may have been "brought forward" into today's note. My signature on this note, however, is an attestation that I personally performed the exam, history, and/or decision-making noted today, and, unless otherwise indicated, the interactions with patient, family, and staff as well as the review of records all occurred today. I also attest that the listed assessment and stated plan reflect my best clinical judgment today based on the combination of historical information, prior notes, and today's exam/ interactions. When time spent is documented, it refers only to time spent today by the signer, or if indicated, combined time spent today by collaborating physician/nurse practitioner.
--- NOTE | 2018-09-16 13:04 | P.PNVS ---
Subjective Post Op Day #: 8 Procedure: LEFT Above The Knee Amputation Subjective/Hospital Course: Afebrile 72/F alert and pleasantly confused patient/NAD Pt does not endorse pain - appears comfortable Ecchymotic area to medial aspect of L AKA incision with increased erythema at the incision line L groin Incision intact w/o R/D seroma noted distal end of incision line Objective Vital Signs / I&O: Vital Signs 09/15/18 16:00 09/15/18 20:00 09/15/18 21:40 Temperature 98.8 F 98.5 F Pulse Rate 100 H 94 H 108 H Respiratory Rate 17 17 Blood Pressure 130/60 116/60 Pulse Oximetry 93 L 96 09/15/18 23:50 09/16/18 04:00 09/16/18 08:00 Temperature 98.3 F 97.1 F L 97.2 F L Pulse Rate 107 H 90 93 H Respiratory Rate 18 18 19 Blood Pressure 119/56 L 139/66 106/56 L Pulse Oximetry 95 96 96 Intake & Output 09/15/18 09/16/18 09/16/18 18:59 06:59 18:59 Intake Total 1000 / 1000 1240 / 1240 Balance 1000 / 1000 1240 / 1240 Weight 52.6 kg Intake: IV 1000 / 1000 1000 / 1000 Potassium Chlor 20 mEq/NACL 0. 1000 / 1000 1000 / 1000 45% Inj 1,000 ML @ 84 mls/hr IV .CONT [facility][id number] [facility] Rx#:[id number] Oral 240 / 240 Other: # Incontinent Voids 2 Date of Last Bowel Movement 09/15/18 09/15/18 Exam: Alert and confused/NAD Skin Warm and dry Improved ecchymotic area to LEFT AKA incision site (medial aspect) Pt with erythema at the incision line Left groin incision I/C w/ mild drainage from the distal end of the incision L LE warm Laboratory Results - last 24 hr 09/15/18 09/15/18 09/15/18 13:01 17:33 21:54 WBC RBC Hgb Hct MCV MCH MCHC RDW Plt Count MPV Neut % (Auto) Lymph % (Auto) [place] % (Auto) Eos % (Auto) Baso % (Auto) Neut # (Auto) Lymph # (Auto) [place] # (Auto) Eos # (Auto) Baso # (Auto) WBC Differential Differential Comment Sodium Potassium Chloride Carbon Dioxide Anion Gap BUN Creatinine Estimated GFR POC Glucose 87 167 H 142 H Random Glucose Calcium 09/16/18 09/16/18 09/16/18 05:48 05:48 07:37 WBC 17.9 H RBC 3.35 L Hgb 8.5 L Hct 26.4 L MCV 78.7 L MCH 25.4 L MCHC 32.3 RDW 16.1 Plt Count 527 H MPV 8.9 Neut % (Auto) 81.2 H Lymph % (Auto) 11.2 [place] % (Auto) 6.3 Eos % (Auto) 0.7 Baso % (Auto) 0.6 Neut # (Auto) 14.6 H Lymph # (Auto) 2.0 [place] # (Auto) 1.1 H Eos # (Auto) 0.1 Baso # (Auto) 0.1 WBC Differential . Differential Comment Auto diff final Sodium 137 Potassium 4.2 Chloride 104 Carbon Dioxide 23.7 Anion Gap 9 BUN 13 Creatinine 0.60 Estimated GFR Greater than 89 POC Glucose 159 H Random Glucose 140 H Calcium 8.7 09/16/18 11:16 WBC RBC Hgb Hct MCV MCH MCHC RDW Plt Count MPV Neut % (Auto) Lymph % (Auto) [place] % (Auto) Eos % (Auto) Baso % (Auto) Neut # (Auto) Lymph # (Auto) [place] # (Auto) Eos # (Auto) Baso # (Auto) WBC Differential Differential Comment Sodium Potassium Chloride Carbon Dioxide Anion Gap BUN Creatinine Estimated GFR POC Glucose 194 H Random Glucose Calcium Assessment and Plan - Assessment (1) PAD (peripheral artery disease) Code(s): I73.9 - Peripheral vascular disease, unspecified Status: Acute - Plan POD#8 s/p L AKA Pt's L AKA incision w/ increased erythema at the incision line- Recommend leaving incision dry and open to air Leave L groin incision open to air May apply a dry sterile dressing to L groin if drainage present Pt will f/u next week in our out pt clinic Leonie Caldwell NP [email or web address] [phone] Discharge Planning: Cleared for d/c Arranged out pt follow up in 2W
--- NOTE | 2018-09-16 13:05 | P.PNPLA ---
Subjective Remarks: Patient briefly seen, not communicating Dressing changes by nurses - please DO NOT USE Santyl - causes macerations and moist wound condition. use only Betadine - the objective is to dry out the wound and necrotic tissues, Objective Vital Signs: Vital Signs - 24 hr 09/15/18 16:00 09/15/18 20:00 09/15/18 21:40 Temperature 98.8 F 98.5 F Pulse Rate 100 H 94 H 108 H Respiratory Rate 17 17 Blood Pressure 130/60 116/60 Pulse Oximetry 93 L 96 09/15/18 23:50 09/16/18 04:00 09/16/18 08:00 Temperature 98.3 F 97.1 F L 97.2 F L Pulse Rate 107 H 90 93 H Respiratory Rate 18 18 19 Blood Pressure 119/56 L 139/66 106/56 L Pulse Oximetry 95 96 96 09/16/18 12:00 Temperature 97.8 F Pulse Rate 98 H Respiratory Rate 19 Blood Pressure 115/56 L Pulse Oximetry 95 Intake & Output 09/14/18 09/15/18 09/16/18 09/17/18 06:59 06:59 06:59 06:59 Intake Total 1360 / 1360 1740 / 1740 2240 / 2240 Balance 1360 / 1360 1740 / 1740 2240 / 2240 Weight 52.8 kg 52.6 kg 52.6 kg Laboratory Results: Laboratory Results - last 24 hr 09/15/18 09/15/18 09/15/18 13:01 17:33 21:54 WBC RBC Hgb Hct MCV MCH MCHC RDW Plt Count MPV Neut % (Auto) Lymph % (Auto) [place] % (Auto) Eos % (Auto) Baso % (Auto) Neut # (Auto) Lymph # (Auto) [place] # (Auto) Eos # (Auto) Baso # (Auto) WBC Differential Differential Comment Sodium Potassium Chloride Carbon Dioxide Anion Gap BUN Creatinine Estimated GFR POC Glucose 87 167 H 142 H Random Glucose Calcium 09/16/18 09/16/18 09/16/18 05:48 05:48 07:37 WBC 17.9 H RBC 3.35 L Hgb 8.5 L Hct 26.4 L MCV 78.7 L MCH 25.4 L MCHC 32.3 RDW 16.1 Plt Count 527 H MPV 8.9 Neut % (Auto) 81.2 H Lymph % (Auto) 11.2 [place] % (Auto) 6.3 Eos % (Auto) 0.7 Baso % (Auto) 0.6 Neut # (Auto) 14.6 H Lymph # (Auto) 2.0 [place] # (Auto) 1.1 H Eos # (Auto) 0.1 Baso # (Auto) 0.1 WBC Differential . Differential Comment Auto diff final Sodium 137 Potassium 4.2 Chloride 104 Carbon Dioxide 23.7 Anion Gap 9 BUN 13 Creatinine 0.60 Estimated GFR Greater than 89 POC Glucose 159 H Random Glucose 140 H Calcium 8.7 09/16/18 11:16 WBC RBC Hgb Hct MCV MCH MCHC RDW Plt Count MPV Neut % (Auto) Lymph % (Auto) [place] % (Auto) Eos % (Auto) Baso % (Auto) Neut # (Auto) Lymph # (Auto) [place] # (Auto) Eos # (Auto) Baso # (Auto) WBC Differential Differential Comment Sodium Potassium Chloride Carbon Dioxide Anion Gap BUN Creatinine Estimated GFR POC Glucose 194 H Random Glucose Calcium Result Diagrams: 09/16/18 05:48 09/16/18 05:48
--- NOTE | 2018-09-16 14:39 | P.CONPSY ---
Provisional Diagnosis Admission Date: August 26, 2018 16:22 [place] I.: Delirium due to to another underlying medical condition History of Present Illness Service: ER Primary Care Provider: Guru Irving MD, PhD Chief Complaint: 72 yo female with LEFT leg wound and PAD History of Present Illness: The patient is a 72 year-old domiciled with her in [place], psychiatric history of depression, no previous psychiatric hospitalizations, no previous suicidal attempts, with medical history of HTN, Diabetes mellitus, CAD/ Cardiomyopathy, hyperlipidemia, Lumbar DDD/post-polio syndrome, aortic atherosclerosis, COPD/asthma and severe PAD. Per outpt records pt had a previous left open common femoral endarterectomy and ELHAM placement left common iliac to external iliac by Dr. Viv Meneses at [facility] on 05/21/18. Pt has had issues with wound healing which was not improved after this intervention. She has been receiving local wound care with [facility] wound care/Dr Best's office. She was seen at wound care office today and was recommended to report to the ED for further evaluation and antibiotics for two noted wounds, one on the right lateral leg and the other is a large LLE deep ulceration on the lateral aspect of the left lower leg with foul-smelling drainage and surrounding erythema. Patient was consulted to psychiatry to address altered mental status. On my psychiatric evaluation the patient is calm, superficially cooperative, partially oriented. She reports to have back pain, denies major distress. She reports to be in an okay mood, but denies hopelessness, denies helplessness, worthlessness, she denies suicidal and homicidal ideation, denies visual and auditory hallucinations. The patient is oriented in place, disoriented in time. As per conversation with her , Ry Trivedi, the patient seems to be doing a little bit better, but he is very concerned about transferring the patient to an [facility]. He is really wishing that she is transferred to an [facility] close to his house. He clarifies that the patient does not have any previous psychiatric history, other than depression related with her ongoing medical conditions. He says that before these hospitalization the patient was at baseline, completely oriented, without memory deficits, able to recognize everybody, able to take care of herself and her basic needs. PPHx: psychiatric history of depression, no previous psychiatric hospitalizations, no previous suicidal attempts PMHx: with medical history of HTN, Diabetes mellitus, CAD/Cardiomyopathy, hyperlipidemia, Lumbar DDD/post-polio syndrome, aortic atherosclerosis, COPD/ asthma and severe PAD Family Hx: No family psychiatric Substance Hx: No use of illegal drugs or alcohol Social Hx: Born and raised in [place], domiciled with her in [place], she has 3 kids, supported by [employer] benefits Review of Systems All other systems reviewed negative except as stated in HPI Musculoskeletal: Reports back pain Psychiatric: Reports irritability, Reports memory loss PMFSH - History History Provided By: Family Member, Medical Record - Medical History Medical History: Medical History (Last Reviewed 09/16/18 @ 10:26 by Sarah Delgado) Diabetes PAD (peripheral artery disease) - Surgical History Surgical History: Surgical History (Last Reviewed 09/16/18 @ 08:37 by Gretchen Neumann) Status post insertion of iliac artery stent (Acute) H/O cardiac catheterization History of History of cholecystectomy Hx of colonoscopy Hx of esophagogastroduodenoscopy - Family History Family History: Family History (Last Reviewed 09/05/18 @ 14:49 by Ute Card MD) Mother Heart disease Father Alcoholism Heart disease - Tobacco History Second Hand Smoke Exposure: Yes Tobacco Use In Past 30 Days: Yes Smoking Status: Current every day smoker Tobacco Type: Cigarettes - Alcohol History How Often Do You Have a Drink Containing Alcohol: Never - Substance Use History Substance History: No History of Abuse - Travel History Recent Travel in the [place] Within the Last 8 Weeks: No Recent Travel Out of the Country Within the Last 8 Weeks: No - Immunization History Tetanus Immunization: Unsure Hx Influenza Vaccine This Season: No Medications and Allergies Active Medications: Active Medications Acetaminophen (Tylenol) 650 mg PO Q4H PRN PRN Reason: Temp > 100.4 Last Admin: 09/08/18 02:51 Dose: 650 mg Hydrocodone Bitart/Acetaminophen (Landing 5/325) 1 tab PO Q4H PRN PRN Reason: PAIN SCALE 1 TO 10 Last Admin: 09/15/18 21:58 Dose: 1 tab Al Hydroxide/Mg Hydroxide (Milk Of Magnesia Liq) 30 ml PO Q12H PRN PRN Reason: Mild Constipation Albuterol (Duoneb Neb (Prn)) 1 ampul NEB Q4HR NEB PRN PRN Reason: SOB/wheezing Last Admin: 09/08/18 16:47 Dose: 1 ampul Aripiprazole (Abilify) 2 mg PO DAILY [facility] Last Admin: 09/16/18 09:03 Dose: 2 mg Aspirin (Aspirin Chew) 81 mg PO DAILY [facility] Last Admin: 09/16/18 09:05 Dose: 81 mg Atorvastatin Calcium (Lipitor) 40 mg PO HS [facility] Last Admin: 09/15/18 21:58 Dose: 40 mg Clonidine HCl (Catapres) 0.1 mg PO Q6H PRN PRN Reason: SBP>180, DBP>110 Last Admin: 08/27/18 20:02 Dose: 0.1 mg Clopidogrel Bisulfate (Plavix) 75 mg PO DAILY [facility] Last Admin: 09/07/18 08:36 Dose: 75 mg Dextrose (D50w Vial) 50 ml IV.PUSH UNSCH PRN PRN Reason: PER HYPOGLYCEMIA PROTOCOL Enalaprilat (Vasotec Inj) 1.25 mg IV.PUSH Q6H PRN PRN Reason: SBP>180, DBP>110 Enoxaparin Sodium (Lovenox Inj) 30 mg SQ DAILY [facility] Last Admin: 09/16/18 09:05 Dose: 30 mg Furosemide (Lasix) 20 mg PO DAILY [facility] Last Admin: 09/16/18 09:04 Dose: 20 mg Gabapentin (Neurontin) 300 mg PO BID [facility] Last Admin: 09/16/18 09:04 Dose: 300 mg Glucagon (Glucagon Inj) 1 mg OTHER PRN PRN PRN Reason: for Hypoglycemia Protocol Guaifenesin (Mucinex Er) 600 mg PO BID [facility] Last Admin: 09/16/18 09:04 Dose: 600 mg Potassium Chloride/Sodium Chloride (Potassium Chlor 20 Meq/Nacl 0.45% Inj) 1, 000 mls @ 84 mls/hr IV.CONT .[id number] [facility] Last Admin: 09/16/18 03:58 Dose: 84 mls/hr Insulin Aspart (Novolog Insulin Correctional Sugar Inj) 0 unit SQ [facility]; Protocol Last Admin: 09/16/18 12:13 Dose: 1 unit Insulin Detemir (Levemir Inj) 5 unit SQ [facility] Last Admin: 09/15/18 22:02 Dose: 5 unit Insulin Detemir (Levemir Inj) 10 unit SQ DAILY [facility] Last Admin: 09/16/18 09:05 Dose: 10 unit Lisinopril (Prinivil) 10 mg PO BID [facility] Last Admin: 09/16/18 09:04 Dose: 10 mg Multivitamins (Theragran) 1 tab PO DAILY [facility] Last Admin: 09/16/18 09:05 Dose: 1 tab Nystatin (Mycostatin Powder) 1 applicatio TOPICAL QID [facility] Last Admin: 09/16/18 12:13 Dose: 1 applicatio Nystatin (Mycostatin Liq) 5 ml SWISH-SWAL QID [facility] Last Admin: 09/16/18 12:12 Dose: Not Given Ondansetron HCl (Zofran Inj) 4 mg IV.PUSH Q6H PRN PRN Reason: NAUSEA OR VOMITING Pantoprazole Sodium (Protonix) 40 mg PO DAILY [facility] Last Admin: 09/16/18 09:04 Dose: 40 mg Pt Own (Fluticasone- Salmeterol [Airduo Respiclick] 55/14 Mcg Inh 1 each INH BID [facility] Potassium Chloride (Klor-Con 10) 10 meq PO DAILY [facility] Last Admin: 09/16/18 09:05 Dose: 10 meq Senna/Docusate Sodium (Carissa-Colace) 1 tab PO BID [facility] Last Admin: 09/16/18 09:11 Dose: Not Given Sodium Chloride (Ns Flush) 2 ml IV.FLUSH BID [facility] Last Admin: 09/16/18 09:05 Dose: Not Given Sodium Chloride (Ns Flush) 2 ml IV.FLUSH PRN PRN PRN Reason: FLUSH AFTER USING IV ACCESS Last Admin: 09/03/18 23:41 Dose: 2 ml Tolterodine Tartrate (Detrol La) 4 mg PO DAILY [facility] Last Admin: 09/16/18 09:04 Dose: 4 mg Allergies Allergy/AdvReac Type Severity Reaction Status Date / Time morphine Allergy Severe Confusion Verified 08/27/18 06:47 Home Medications Medication Instructions Recorded Confirmed Type aripiprazole 2 mg PO DAILY 08/26/18 08/26/18 History aspirin 81 mg PO DAILY 08/26/18 08/26/18 History atorvastatin 40 mg PO QPM 08/26/18 08/26/18 History clopidogrel [Plavix] 75 mg PO DAILY 08/26/18 08/26/18 History fesoterodine [Toviaz] 8 mg PO DAILY 08/26/18 08/26/18 History fluticasone-salmeterol [AirDuo 1 puff INHALATION BID 08/26/18 08/26/18 History RespiClick] furosemide [Lasix] 20 mg PO DAILY 08/26/18 08/26/18 History gabapentin 300 mg PO BID 08/26/18 08/26/18 History glimepiride 2 mg PO QAM 08/26/18 08/26/18 History hydrocodone-acetaminophen [Landing] 1 tab PO Q6H PRN 08/26/18 08/26/18 History insulin detemir U-100 [Levemir 25 units SUBCUT BID 08/26/18 08/26/18 History FlexTouch U-100 Insuln] lansoprazole 30 mg PO DAILY 08/26/18 08/26/18 History metformin 500 mg PO BID 08/26/18 08/26/18 History mirabegron [Myrbetriq] 50 mg PO DAILY 08/26/18 08/26/18 History potassium chloride 10 meq PO DAILY 08/26/18 08/26/18 History Exam Vital signs: Vital Signs 09/15/18 16:00 09/15/18 20:00 09/15/18 21:40 Temperature 98.8 F 98.5 F Pulse Rate 100 H 94 H 108 H Respiratory Rate 17 17 Blood Pressure 130/60 116/60 Pulse Oximetry 93 L 96 09/15/18 23:50 09/16/18 04:00 09/16/18 08:00 Temperature 98.3 F 97.1 F L 97.2 F L Pulse Rate 107 H 90 93 H Respiratory Rate 18 18 19 Blood Pressure 119/56 L 139/66 106/56 L Pulse Oximetry 95 96 96 09/16/18 12:00 Temperature 97.8 F Pulse Rate 98 H Respiratory Rate 19 Blood Pressure 115/56 L Pulse Oximetry 95 Intake & Output 09/15/18 09/16/18 09/16/18 18:59 06:59 18:59 Intake Total 1000 / 1000 1240 / 1240 Balance 1000 / 1000 1240 / 1240 Weight 52.6 kg Intake: IV 1000 / 1000 1000 / 1000 Potassium Chlor 20 mEq/NACL 0. 1000 / 1000 1000 / 1000 45% Inj 1,000 ML @ 84 mls/hr IV .CONT .[id number] [facility] Rx#:[id number] Oral 240 / 240 Other: # Incontinent Voids 2 Date of Last Bowel Movement 09/15/18 09/15/18 Mental Status Examination Appearance: Appropriate Consciousness: Alert Orientation: Person, Place Motor Activity: Normal gait Speech: Unremarkable Language: Adequate Fund of Knowledge: Adequate Attention and Concentration: Adequate Memory: Unremarkable Mood: Appropriate Affect: Appropriate, Irritable Thought Process & Associations: Intact, Loose associations Thought Content: Bizarre thinking Hallucination Type: None Delusion Type: None Suicidal Ideation: No Suicidal Plan: No Suicidal Intention: No Homicidal Ideation: No Homicidal Plan: No Homicidal Intention: No Insight: Fair Judgment: Impulsive Assessment and Plan - Assessment (1) Delirium due to another medical condition Code(s): F05 - Delirium due to known physiological condition Status: Acute - Plan Plan: On psychiatric evaluation today the patient presents superficially cooperative, quite disengaged, disinterested, she reports to be on back pain. Reports to be in an okay mood, denies hopelessness, denies helplessness, denies suicidal and homicidal ideation, denies visual and auditory hallucinations. The patient is oriented to person and place, disoriented in time. No agitation, no aggressive behavior, no paranoia present. As per , patient has moment of fluctuation of consciousness, periods of agitation and disorganization alternated with lucidity. Current presentation seems to be consistent with delirium. Can increase the Abilify to 5 mg. Patient does not have decision- making capacity at the moment. She does not meet criteria for involuntary psychiatric admission. Justification for Continued Inpatient Stay: No admission is indicated
--- NOTE | 2018-09-16 15:34 | P.DIET ---
Nutritional Evaluation Type of nutrition evaluation: follow-up Nutrition screening: Poor PO Intake Subjective Subjective Comments: Was confused during RD visit, seen drinking her Glucerna Shake. Objective - Diagnosis L leg ulcer, cellulitis - Objective Part of Body Amputated: Left above knee (12%) Body Weight Used for Calculations: Actual (57 kg) Energy Needs - Lower Range (kCal/kg): 28 Energy Needs - Upper Range (kCal/kg): 32 Lower Limit kCal/kg (kCals): 1,596 Upper Limit kCal/kg (kCals): 1,824 Lower Limit Protein Factor (Grams per Kg): 1.2 Upper Limit Protein Factor (Grams per Kg): 1.6 Lower Protein Needs (Protein): 68 Upper Protein Needs (Protein): 91 Fluid Factor (ml/kg): 32 Estimated Fluid Needs (ml): 1,824 Dietitian Reviewed in Medical Record: Current diet, Curent medications, Intake & Output, Labs, Medical history Diet Order: 2000 ADA Oral Diet Intake Amount: Fair 50-75% Wound Care Note: Pressure Injury: sacrum (unstageable wound) Objective Comments: Meds: MVI Labs: POC glucose 154 142 194 Assessment Assessment: MDC for wound received 09/15/18. Wound care note reviewed, pt has an unstageable wound on sacrum and will require additional PO supplements. RD to recommend Vazquez 1-pkt BID to aid in wound healing. Pt was confused during RD visit. Pt currently on a 2000 ADA diet w/ Glucerna Shakes TID. RD continue to recommend 1800ADA diet. Pt drank around 1/2 of her Glucerna shakes per RD observation. Encourage PO intake and provide feeding assistance as necessary for pt. Labs reviewed, dietitian following. Recommendations: 1. RD to recommend Vazquez 1-pkt BID to aid in wound healing 2. RD continue to recommend 1800ADA diet 3. Encourage PO intake and provide feeding assistance as necessary for pt 4. Dietitian following Dietitian to Monitor: Lab values, Glucose level, Supplement acceptance, Intake & Output, Diet tolerance, Weight change, PO Intake, Wound/skin status, Medical course
[2018-09-17] MEDS: KCL 20 mEq/NACL 0.45% Inj 1,000 ML IV.CONT SCH ×2 (06:24→09:22)
[2018-09-17] MEDS: Insulin NovoLOG Aspart Correctional Sugar Inj SQ SCH ×4 (08:57→22:37)
[2018-09-17] MEDS: Enoxaparin Inj 30 MG/0.3 ML Syringe SQ SCH (08:58)
[2018-09-17] MEDS: Furosemide 20 MG Tablet PO SCH (08:59)
[2018-09-17] MEDS: ARIPiprazole 2 MG Tablet PO SCH (08:59)
[2018-09-17] MEDS: guaiFENesin 600 MG ER Tablet PO SCH ×2 (08:59→22:35)
[2018-09-17] MEDS: Tolterodine Tartrate LA 4 MG Capsule PO SCH (08:59)
[2018-09-17] MEDS: Senna/Docusate Sodium 8.6/50 MG Tablet PO SCH ×2 (08:59→22:35)
[2018-09-17] MEDS: Lisinopril 10 MG Tablet PO SCH ×2 (08:59→22:35)
[2018-09-17] MEDS: Gabapentin 300 MG Capsule PO SCH ×2 (08:59→22:35)
[2018-09-17] MEDS: Insulin Detemir Inj 1,000 UNIT/10 ML Vial SQ SCH ×2 (09:11→22:36)
[2018-09-17] MEDS: Nystatin Liq 500,000 UNIT/5 ML UDC SWISH-SWAL SCH ×4 (09:12→22:37)
[2018-09-17] MEDS: Nystatin 100,000 UNITS/GM Powder 15 GM Bottle TOPICAL SCH ×4 (09:13→22:37)
--- NOTE | 2018-09-17 09:35 | P.PNIM ---
Subjective Interval history: Pt is oriented at times but then has intermittent confusion. She has been afebrile Physical Exam Vital signs: Last Vital Signs Temp 97.3 F L 09/17/18 08:00 Pulse 92 H 09/17/18 08:00 Resp 18 09/17/18 08:00 BP 109/54 L 09/17/18 08:00 Pulse Ox 97 09/17/18 08:00 Narrative: General: Awake, alert, oriented to self only, confused SKIN: RLE shallow ulcer on the lateral leg. Pt with sacral decubitus on her gluteal cleft as well. Cardiac: Reg Chest: course bs bilaterally, poor inspiratory effort Abd: s/nt/bs Ext: Left BKA, bandages are c/d/i, darkened area of skin at the incision line and some redness. Results Labs CBC & Chem 7: 09/16/18 05:48 09/16/18 05:48 Imaging Aorta w/Runoff CTA 08/27/18 00:00 CONCLUSION: 1. Extensive arteriosclerotic calcification with diffuse areas of mild luminal narrowing both inflow and outflow. There is one segment in the proximal left superficial femoral artery with greater than 70% narrowing. 2. Bilateral adrenal masses, stable from 2017. Extremity Arterial Study 08/27/18 00:00 CONCLUSION: 1. Severely decreased ankle-brachial indices bilaterally also reflected on toe brachial indices. Findings are consistent with severe bilateral lower extremity arterial disease, left greater than right. Abdomen X-Ray 08/30/18 06:00 CONCLUSION: Negative KUB. Chest X-Ray 09/01/18 00:00 CONCLUSION: Mild left base parenchymal opacity. Head CT 09/01/18 00:00 CONCLUSION: 1. No acute infarct, acute hemorrhage, midline shift or extra-axial fluid collections. 2. Moderate periventricular and subcortical white matter small vessel ischemic changes bilaterally. 3. Mild cerebral atrophy. 4. 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 . Chest X-Ray 09/07/18 00:00 CONCLUSION: Stable chest without evidence of consolidating airspace disease. COPD Chest X-Ray 09/10/18 00:00 CONCLUSION: No acute cardiopulmonary process. Head CT 09/13/18 00:00 CONCLUSION: No acute intracranial findings. . Chest X-Ray 09/14/18 08:00 CONCLUSION: No acute cardiopulmonary disease. Chest CT 09/15/18 00:00 CONCLUSION: 1. Tiny right lung nodules which appear benign 2. No significant consolidative infiltrate. 3. Stable tiny pericardial effusion 4. Stable adrenal masses. Assessment and Plan Assessment (1) PAD (peripheral artery disease): Code(s): I73.9 - Peripheral vascular disease, unspecified Status: Acute Plan Nonhealing bilateral LE wounds (L worse than R) Severe PAD - Pt is a 72 y/o WF with HTN, Diabetes mellitus, CAD/Cardiomyopathy, hyperlipidemia, depression, Lumbar DDD/post-polio syndrome, aortic atherosclerosis, COPD/asthma and severe PAD. Per outpt records pt had a previous left open common femoral endarterectomy and ELHAM placement left common iliac to external iliac by Dr. Viv Meneses at [facility] on 05/21/18. Pt has had issues with wound healing which was not improved after this intervention. She has been receiving local wound care with [facility] wound care/Dr Best's office. She was seen at wound care office today and was recommended to report to the ED for further evaluation and antibiotics for two noted wounds, one on the right lateral leg and the other is a large LLE deep ulceration on the lateral aspect of the left lower leg with foul-smelling drainage and surrounding erythema. - WBC 8.9 (08/26), 10.7 (08/27), 9.3 (08/28) - Blood Cx (08/26) --> NGTD - Wound Gram stain (08/26) --> may gram negative rods. Many pleomorphic gram positive rods. - Wound Cx (08/26) --> MSSA - Vancomycin ( - 08/29) - Zosyn (08/26 - 08/29) - oxacillin (08/29 - 09/02) - Zosyn resumed (09/02 - 09/11/18) - Appreciate input from Wound Care - Case d/w Dr. Frank (08/27). - Pt may require wound debridement in the OR - Case d/w Dr. Mauricio (08/30). - on 11/18/17 Pt [facility] b[facility]l [facility] - nearly occlusive left common femoral artery, high-grade proximal external iliac artery stenosis, moderate left common iliac artery disease however NO high grade stenosis. - placement of left distal common iliac to external ilac 6x40 self expanding stent - right common iliac artery with high-grade stenosis at its origin patent external iliac stent with moderate instent stenosis moderate to severe right common femoral disease - Plavix - [place] increased to 10/325 Q4H PRN pain (home med) --> decrease back to 6h scheduled - Pt hd been planned for re-do LEFT groin reconstruction and LLE angiogram with endovascular intervention with Dr. Mauricio on Saturday09/01/18. She was taken to the OR but the scarring was extensive in the left leg and not reconstructable. - Pt/family met with Dr Mauricio on 09/03 and at that time were in agreement for LEFT AKA which was planned for 09/04, but now the pts daughter is not wanting to proceed with surgery so this has been placed on hold until the entire family can come to a decision about how best to proceed. - Pt was again scheduled for surgery 09/05 but daughter and family placed on hold again. - We had 3 of our Vascular surgeons agree she needs AKA and also Dr Mauricio spoke to a surgeon in [place] at the request of family who I'm told also agrees. Family wanted yet another recommendation and so Vascular consulted Ortho. The Orthopedic surgeon who saw the patient on 09/05 also agreed that AKA was most appropriate. - Per discussion with Dr. Jimenez who spoke extensively with the pts again on 09/06/18, the pt is tentatively planned for left AKA on Saturday. - Pt had been having some intermittent fevers prior to surgery which was felt to possibly be related to atelectasis vs. worsening status of her LLE/infection - Check CXR (09/07/18) -->Stable chest without evidence of consolidating airspace disease and COPD - Glucerna added to her meals as she is drinking without difficulty but not eating much. Explained to the pts that without adequate nutrition she will have a difficult time with the healing process. 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 - She had increased confusion on 09/09/18. Will continue to monitor clinical status closely - Appreciate assistance from Palliative Care team. Pt and understand post op risk of poor wound healing and persistent decline. Pt still may ultimately benefit from hospice if surgery unsuccessful. At this point her is leaning more towards SNF for an attempt at rehab efforts. - DVT prophylaxis with Lovenox Delirium - Pt likely has underlying cognitive deficits/mild dementia based on my discussion with family. - Apparent superimposed delirium likely MF. 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 no acute cva - Urine cx with no growth in 48 hours. - Post-op her mental status is decompensated, she is quite confused at times but does occasionally oriented only to self and place - Appreciate input from Psychiatry HTN - Lisinopril 10mg BID Diabetes mellitus - NovoLog SSI - Accu checks - Hold OHA - Levemir 5units PM & 10 units qAM Cardiomyopathy, EF 35-40% on echo in 12/2017 - Cont. Lasix and KCl at home dose - Replace potassium as needed. - monitor labs Depression - Cont. home meds COPD Asthma - Cont. home meds - Schedule Duonebs Q6H WA and Duonebs PRN - Mucinex - Acapella/IS - Pulmonary toileting Attending Attestation Patient examined. Assessment and plan formulated with Rebecca Hurt PA-C. I agree with the above. family to speak with palliative care. pt now dnr. would benefit from hospice. left AKA wounds stable. mental status about the same with periods of clear thinking but persistent confusion. Pt and family to decide on snf. plan for dc in next 24-48hrs. Progress Note: Quality VTE Deep Vein Thrombosis/Pulmonary Embolism Present on Admission: No
--- NOTE | 2018-09-17 14:12 | P.PNPAL ---
Palliative care continues to follow along with Mrs. Trivedi. Spoke with Zach. Updated him on acceptance to [facility]. Per attending progress notes anticipate discharge in the next 24-48hrs. is appreciative of update. He inquires about co-pay during the rehab stay. States he left message with CM for further information. Answered his questions to the best of my ability. Gently explore discussion of hospice after rehab per conversation yesterday to offer hospice consult and meeting prior to discharge. Mr. Trivedi states he has not broken the news to his children regarding Mrs. Trivedi not coming home and living in the [facility] after rehab. He states he is breaking it to them gently and is not at a point to meet with hospice yet. Offered emotional support through active listening. Mr. Trivedi appreciative of palliative care and continued follow up.
[2018-09-18 05:16] LABS: Baso # (Auto) 0.1 th/mm3 (0.0-0.2); Baso % (Auto) 0.3 % (0.0-2.0); Eos # (Auto) 0.1 th/mm3 (0.0-0.4); Eos % (Auto) 0.5 % (0.0-4.0); Hematocrit 27.8 % (35.0-46.0); Hemoglobin 8.8 gm/dL (11.6-15.3); Lymph # (Auto) 2.5 th/mm3 (1.0-4.8); Lymph % (Auto) 12.2 % (9.0-44.0); Mean Corpuscular HGB Conc 31.6 % (32.0-36.0); Mean Corpuscular Hemoglobin 24.6 pg (27.0-34.0); Mean Corpuscular Volume 77.9 fL (80.0-100.0); Mean Platelet Volume 8.9 fL (7.0-11.0); Mono # (Auto) 1.3 th/mm3 (0.0-0.9); Mono % (Auto) 6.3 % (0.0-8.0); Neut # (Auto) 16.8 th/mm3 (1.8-7.7); Neut % (Auto) 80.7 % (16.0-70.0); Platelet Count 563 th/mm3 (150-450); Red Blood Count 3.57 mil/mm3 (4.00-5.30); Red Cell Distribution Width 16.4 % (11.6-17.2); White Blood Count 20.9 th/mm3 (4.0-11.0)
[2018-09-18 05:35] LABS: Anion Gap 8 meq/L (5-15); Blood Urea Nitrogen 16 mg/dL (7-18); Calcium 8.9 mg/dL (8.5-10.1); Carbon Dioxide 22.6 meq/L (21.0-32.0); Chloride 107 meq/L (98-107); Glomerular Filtration Rate Greater Than 89 mL/min (>89); Glucose,Random 98 mg/dL (74-106); Magnesium 1.6 mg/dL (1.5-2.5); Sodium 138 meq/L (136-145)
[2018-09-18 07:18] LABS: Lymphocytes 7 % (9-44); Metamyelocytes 1 % (0-1); Monocytes 5 % (0-8)
[2018-09-18 07:19] LABS: Platelet Morphology Normal (Normal)
[2018-09-18] MEDS: ARIPiprazole 2 MG Tablet PO SCH (08:11)
[2018-09-18] MEDS: Lisinopril 10 MG Tablet PO SCH (08:11)
[2018-09-18] MEDS: Furosemide 20 MG Tablet PO SCH (08:11)
[2018-09-18] MEDS: Tolterodine Tartrate LA 4 MG Capsule PO SCH (08:12)
[2018-09-18] MEDS: Gabapentin 300 MG Capsule PO SCH (08:12)
[2018-09-18] MEDS: Enoxaparin Inj 30 MG/0.3 ML Syringe SQ SCH (08:12)
[2018-09-18] MEDS: guaiFENesin 600 MG ER Tablet PO SCH (08:12)
[2018-09-18] MEDS: Insulin Detemir Inj 1,000 UNIT/10 ML Vial SQ SCH (08:12)
[2018-09-18] MEDS: Insulin NovoLOG Aspart Correctional Sugar Inj SQ SCH ×2 (08:23→13:07)
[2018-09-18 08:27] VITALS: RESP 16
[2018-09-18] MEDS: Nystatin Liq 500,000 UNIT/5 ML UDC SWISH-SWAL SCH ×2 (09:06→13:40)
[2018-09-18] MEDS: Nystatin 100,000 UNITS/GM Powder 15 GM Bottle TOPICAL SCH ×2 (09:59→13:07)
[2018-09-18] MEDS: Senna/Docusate Sodium 8.6/50 MG Tablet PO SCH (09:59)
--- NOTE | 2018-09-18 11:42 | P.DS ---
DS: Providers Date of admission: 08/26/18 16:22 Primary care physician: Guru Irving MD, PhD Consults: 09/14/18 18:28 Consult to General Surgery Routine Consulting Provider: Michael Elizondo Preferred Economic Geographer:: Michael Elizondo Reason for Consultation: sacral decubitus ulcer, stage 3 evaluate for possible debridement Notified:: Service Spoke with:: Michelle Date Notified:: 09/14/18 Time Notified:: 18:32 Ordering Provider: ELIZABETH 09/14/18 18:30 Consult to Palliative Care Routine Consulting Provider: Saúl Ragland Reason for Consultation: Patient clinically declining, please re evaluate goals of care Notified:: Service Spoke with:: Marcia Date Notified:: 09/14/18 Time Notified:: 18:37 Ordering Provider: MITZI 09/15/18 11:12 Consult to Plastic Surgery Routine Consulting Provider: Robin Coker Preferred Economic Geographer:: Robin Coker Reason for Consultation: sacral decubitus Notified:: Physician Spoke with:: Date Notified:: 09/15/18 Time Notified:: 11:24 Ordering Provider: ARIELLE 09/15/18 11:35 Consult to Psychiatry Routine Consulting Provider: Marco Graham Reason for Consultation: AMS Notified:: Service Spoke with:: ANDREW Date Notified:: 09/15/18 Time Notified:: 11:45 Ordering Provider: MITZI 09/17/18 10:33 HUB Only Consult Order Routine Consulting Provider: Zaid Barba 08/26/18 19:21 Consult to Podiatry Routine Consulting Provider: Galdino Chirinos Reason for Consultation: Bilateral LE wounds, left worse than right. Notified:: Service Spoke with:: Tali Date Notified:: 08/26/18 Time Notified:: 21:31 Ordering Provider: JOSE 08/27/18 13:34 Consult to Vascular Surgery Routine Consulting Provider: Rachid Mauricio Reason for Consultation: PVD Case already d/w Dr. Mauricio Notified:: Physician Spoke with:: Dr. Mauricio Date Notified:: 08/27/18 Time Notified:: 13:38 Ordering Provider: MITZI 09/01/18 10:10 Consult to General Surgery Routine Consulting Provider: Varghese Crooks Preferred Economic Geographer:: Varghese Crooks Reason for Consultation: 72 yo female with L LE pressure ulcer. Failed L [employer] Sept (elsewhere), now s/p attempt at L groin reconstruction 09/01. Needs L AKA. Please eval for 2nd opinion Notified:: Physician Spoke with:: Date Notified:: 09/01/18 Time Notified:: 10:30 Ordering Provider: JACQUELYN 09/03/18 09:16 Consult to Palliative Care Routine Consulting Provider: Latoya Wu Reason for Consultation: chronic nonhealing LE wound, need for left AKA. Goals of care, multiple family members with different ideas for goals Ordering Provider: JOSE 09/03/18 13:53 HUB Only Consult Order Routine Consulting Provider: Me[employer]ob[employer] 09/05/18 09:04 Consult to Orthopedic Surgery Routine Consulting Provider: Ute Card Reason for Consultation: Pt family wants a BKA. Notified:: Office Spoke with:: Chioma Date Notified:: 09/05/18 Time Notified:: 09:19 Ordering Provider: JACQUELYN Brief History from admission: Mrs. Trivedi is a 72 y/o WF with HTN, Diabtes mellitus, CAD/Cardiomyopathy, hyperlipidemia, depression, Lumbar DDD/post-polio syndrome, aortic atherosclerosis, COPD/asthma and severe PAD. Pt had a previous left open common femoral endarterectomy and ELHAM placement left common iliac to external iliac by Dr. Viv Meneses at [facility] on 05/21/18. Pt has had issues with wound healing since that time. She has been receiving local wound care with [facility] wound care/Dr Best's office. She was seen at wound care office today and was recommended to report to the ED for further evaluation and antibiotics for two noted wounds, one on the right lateral leg and the other is a large LLE deep ulceration on the lateral aspect of the left lower leg with foul-smelling drainage and surrounding erythema. Pts WBC count in the ED was 8.9. No reported fevers or chills. Blood cultures and wound cultures were taken in the ED. Pt was given a dose of IV Vancomycin and Zosyn in the ED. Past Medical Hx: HTN Diabetes mellitus, renal manifestations with CKD stage II, polyneuropathy CAD/Hx of NSTEMI ischemic Cardiomyopathy, EF 40-45% Hyperlipidemia Depression Lumbar DDD/post-polio syndrome/chronic LE weakness/paraplegia Carotid stenosis Aortic atherosclerosis COPD/asthma Hx of respiratory failure Severe PAD, left subclavian stenosis Chronic LE wound 2D echo 12/2017 with EF 35-40%, mod MR Past Surgical Hx: Left open common femoral endarterectomy and ELHAM placement left common iliac to external iliac by Dr. Viv Meneses at [facility] on 05/21/18 [facility] s/p POBA RCA (10/23/16) PCI with ELHAM RCA (05/15/17) Cholecystectomy Cesarian section Cataract surgery Family Hx: Mother with hx of CVA, skin cancer Father with hx of CAD Social Hx: Hx of tobacco use DS: Diagnosis Discharge Diagnosis (1) PAD (peripheral artery disease): Status: Acute DS: Summary Nonhealing bilateral LE wounds (L worse than R) Severe PAD - Pt is a 72 y/o WF with HTN, Diabetes mellitus, CAD/Cardiomyopathy, hyperlipidemia, depression, Lumbar DDD/post-polio syndrome, aortic atherosclerosis, COPD/asthma and severe PAD. Per outpt records pt had a previous left open common femoral endarterectomy and ELHAM placement left common iliac to external iliac by Dr. Viv Meneses at [facility] on 05/21/18. Pt has had issues with wound healing which was not improved after this intervention. She has been receiving local wound care with [facility] wound care/Dr Best's office. She was seen at wound care office today and was recommended to report to the ED for further evaluation and antibiotics for two noted wounds, one on the right lateral leg and the other is a large LLE deep ulceration on the lateral aspect of the left lower leg with foul-smelling drainage and surrounding erythema. - Blood Cx (08/26) --> NGTD - Wound Gram stain (08/26) --> may gram negative rods. Many pleomorphic gram positive rods. - Wound Cx (08/26) --> MSSA - Pt was treated with Abx during admission, including, Vancomycin ( - ), Zosyn (08/26 - 08/29), oxacillin (08/29 - 09/02) and Zosyn resumed (09/02 - 09/11/18). - Appreciate input from Wound Care - Pt had a previous procedure on 05/21/18 with underwent b/l LE revascularization procedure with Dr. Viv Meneses at [facility] with noted nearly occlusive left common femoral artery, high-grade proximal external iliac artery stenosis, moderate left common iliac artery disease however NO high grade stenosis, placement of left distal common iliac to external iliac 6x40 self expanding stent, right common iliac artery with high-grade stenosis at its origin patent external iliac stent with moderate in-stent stenosis moderate to severe right common femoral disease. Pt was continued on Plavix during this admission. - Gates increased to 10/325 Q4H PRN pain (home med) --> decrease back to 6h scheduled - Pt had been planned for re-do LEFT groin reconstruction and LLE angiogram with endovascular intervention with Dr. Mauricio on Saturday09/01/18. She was taken to the OR but the scarring was extensive in the left leg and not reconstructable. - Pt/family met with Dr Mauricio on 09/03 and at that time were in agreement for LEFT AKA which was planned for 09/04, but the pts daughter did not want to proceed with surgery it was placed on hold until the entire family was able to come to a decision about how best to proceed. Pt was again scheduled for surgery 09/05 but daughter and family placed on hold again. We had 3 of our Vascular surgeons agree she needs AKA and also Dr Mauricio spoke to a surgeon in [place] at the request of family who I'm told also agrees. Family wanted yet another recommendation and so Vascular consulted Ortho. The Orthopedic surgeon who saw the patient on 09/05 also agreed that AKA was most appropriate. Per discussion with Dr. Jimenez who spoke extensively with the pts again on 09/06/18, the pt is tentatively planned for left AKA on Saturday. - Pt had some intermittent fevers prior to surgery which was felt to possibly be related to atelectasis vs. worsening status of her LLE/infection - Check CXR (09/07/18) -->Stable chest without evidence of consolidating airspace disease and COPD - Glucerna added to her meals as she is drinking without difficulty but not eating much. Explained to the pts that without adequate nutrition she will have a difficult time with the healing process. 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 - Appreciate assistance from Palliative Care team. Pt and understand post op risk of poor wound healing and persistent decline. - Pt had some noted darkening of the incision a few days prior to discharge and Vascular surgery re-evaluated and felt that there was no further intervention that would benefit the patient and just recommended local wound care. She his high risk for continued decline and readmission. We are sending the pt to SNF at the request of the patients family to try to see if she can rehab and improve clinically but discussed that should she fail at rehab that she would be very appropriate for Hospice at that point. Delirium - Pt likely has underlying cognitive deficits/mild dementia based on my discussion with family. - Apparent superimposed delirium likely MF. 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 no acute cva - Urine cx with no growth in 48 hours. - Post-op her mental status is decompensated, and was quite confused at times but does occasionally oriented only to self and place. Appreciate input from Psychiatry HTN - Cont. Lisinopril 10mg BID Diabetes mellitus - At rehabs we will continue NovoLog SSI and Levemir 5units PM & 10 units qAM Cardiomyopathy, EF 35-40% on echo in 12/2017 - Cont. Lasix and KCl at home dose. Monitor labs weekly at rehab. Depression - Cont. home meds COPD Asthma - Cont. home meds. - Acapella/IS - Pulmonary toileting Time Spent with Patient Total time spent providing and/or coordinating discharge services: Quality: VTE Deep Vein Thrombosis/Pulmonary Embolism Present on Admission: No Results Labs on day of discharge: Labs from last 24 hours 09/18/18 09/18/18 09/18/18 08:19 04:28 04:28 WBC 20.9 H RBC 3.57 L Hgb 8.8 L Hct 27.8 L MCV 77.9 L MCH 24.6 L MCHC 31.6 L RDW 16.4 Plt Count 563 H MPV 8.9 Prelim Diff (Auto) Slide review pending Neut % (Auto) 80.7 H Lymph % (Auto) 12.2 [place] % (Auto) 6.3 Eos % (Auto) 0.5 Baso % (Auto) 0.3 Neut # (Auto) 16.8 H Lymph # (Auto) 2.5 [place] # (Auto) 1.3 H Eos # (Auto) 0.1 Baso # (Auto) 0.1 WBC Differential Manual diff final Seg Neuts % (Manual) 79 H Band Neuts % (Manual) 8 H Lymphocytes % (Manual) 7 L Monocytes % (Manual) 5 Metamyelocytes % (Man) 1 Abs Neuts (Manual) 18.4 H Differential Comment . Platelet Estimate High H Platelet Morphology Normal Sodium 138 Potassium 4.0 Chloride 107 Carbon Dioxide 22.6 Anion Gap 8 BUN 16 Creatinine 0.59 Estimated GFR Greater than 89 POC Glucose 113 H Random Glucose 98 Calcium 8.9 Magnesium 1.6 09/17/18 09/17/18 21:48 17:15 WBC RBC Hgb Hct MCV MCH MCHC RDW Plt Count MPV Prelim Diff (Auto) Neut % (Auto) Lymph % (Auto) [place] % (Auto) Eos % (Auto) Baso % (Auto) Neut # (Auto) Lymph # (Auto) [place] # (Auto) Eos # (Auto) Baso # (Auto) WBC Differential Seg Neuts % (Manual) Band Neuts % (Manual) Lymphocytes % (Manual) Monocytes % (Manual) Metamyelocytes % (Man) Abs Neuts (Manual) Differential Comment Platelet Estimate Platelet Morphology Sodium Potassium Chloride Carbon Dioxide Anion Gap BUN Creatinine Estimated GFR POC Glucose 164 H 206 H Random Glucose Calcium Magnesium Impressions ITS Impressions Aorta w/Runoff CTA 08/27/18 00:00 CONCLUSION: 1. Extensive arteriosclerotic calcification with diffuse areas of mild luminal narrowing both inflow and outflow. There is one segment in the proximal left superficial femoral artery with greater than 70% narrowing. 2. Bilateral adrenal masses, stable from 2017. Extremity Arterial Study 08/27/18 00:00 CONCLUSION: 1. Severely decreased ankle-brachial indices bilaterally also reflected on toe brachial indices. Findings are consistent with severe bilateral lower extremity arterial disease, left greater than right. Abdomen X-Ray 08/30/18 06:00 CONCLUSION: Negative KUB. Head CT 09/13/18 00:00 CONCLUSION: No acute intracranial findings. . Chest X-Ray 09/14/18 08:00 CONCLUSION: No acute cardiopulmonary disease. Chest CT 09/15/18 00:00 CONCLUSION: 1. Tiny right lung nodules which appear benign 2. No significant consolidative infiltrate. 3. Stable tiny pericardial effusion 4. Stable adrenal masses. Discharge Plan Discharge Disposition Patient Disposition: 03 Discharge to [facility] Discharge Condition Condition: Stable Discharge Order Discharge Orders: Discharge Order (Routine); Ordered 09/18/18 Ordered By: Jacoby Rodriguez Discharge Details Anticipated Discharge Date: 09/18/18 Discharge Comment: Your post op follow up with Dr. Jimenez is scheduled on at 9:45AM Followup with PCP, Dr. Irving, 1 week after discharge from rehab. Physicians Team ED Provider: Elijah Jeong ED Midlevel Provider: Haider La Primary Care Provider: Guru Irving Attending Provider: Zach Gaspar Other Providers: Galdino Chirinos ; Rachid Mauricio ; Varghese Crooks ; Latoya Wu ; [facility] ; Ute Card ; Michael Elizondo ; Saúl Ragland ; Robin Coker ; Marco Graham ; [facility],Zaid Rxs /Orders / Referrals /Forms Prescriptions: New insulin detemir U-100 [Levemir U-100 Insulin] 100 unit/mL Solution 10 unit subcut DAILY Qty: 1 RF: 0 insulin detemir U-100 [Levemir U-100 Insulin] 100 unit/mL Solution 5 unit subcut HS Qty: 1 RF: 0 multivitamin with folic acid [Thera] 400 mcg Tablet 1 tab PO DAILY Qty: 30 RF: 0 hydrocodone-acetaminophen 5-325 mg Tablet 1 tab PO Q4H PRN (Reason: Pain ) Qty: 12 RF: 0 Continue potassium chloride 10 mEq Tablet Extended Release 10 meq PO DAILY RF: 0 lansoprazole 30 mg Capsule,Delayed Release(Dr/Ec) 30 mg PO DAILY RF: 0 gabapentin 300 mg Capsule 300 mg PO BID RF: 0 furosemide [Lasix] 20 mg Tablet 20 mg PO DAILY RF: 0 aripiprazole 2 mg Tablet 2 mg PO DAILY RF: 0 fesoterodine [Toviaz] 8 mg Tablet Extended Release 24 Hr 8 mg PO DAILY RF: 0 atorvastatin 40 mg Tablet 40 mg PO QPM RF: 0 aspirin 81 mg Tablet,Chewable 81 mg PO DAILY RF: 0 clopidogrel [Plavix] 75 mg Tablet 75 mg PO DAILY RF: 0 fluticasone-salmeterol [AirDuo RespiClick] 55-14 mcg/actuation Aerosol Powdr Breath Activated 1 puff INHALATION BID RF: 0 Discontinued hydrocodone-acetaminophen [Gates] 10-325 mg Tablet 1 tab PO Q6H PRN (Reason: Pain) RF: 0 mirabegron [Myrbetriq] 50 mg Tablet Extended Release 24 Hr 50 mg PO DAILY RF: 0 metformin 500 mg Tablet 500 mg PO BID RF: 0 glimepiride 2 mg Tablet 2 mg PO QAM RF: 0 insulin detemir U-100 [Levemir FlexTouch U-100 Insuln] 100 unit/mL (3 mL) Insulin Pen 25 units subcut BID RF: 0 Referrals: Bill Jimenez MD [Physician] - See Instructions (Your post op follow up is scheduled on 09/24/18 at 9:45) Zaid Recio [Agency] - See Instructions Guru Irving MD, PhD [Primary Care Provider] - See Instructions (Followup with PCP 1 week following discharge from rehab ) Status ED Status: Left Department Discharge Information Discharge Date/Time: 09/18/18 16:41
[2018-09-18] MEDS: Sodium Chlor 0.9% Inj 500 ML IV.SIG ONE ×2 (12:41→13:08)
--- NOTE | 2018-09-18 16:32 | P.PNPAL ---
Ms. Trivedi being discharged to [facility] today. Palliative care follow-up to assist with Community DNR. Spoke with via telephone as he is not currently at the hospital. Informed him facility will be able to assist with completing Community DNR to honor patient wishes after hospitalization as he is not currently present to sign Community DNR. He verbalizes understanding. Denies any questions or concerns.
[2018-09-18 17:00] VITALS: PULSE 104; TEMP 97.6; O2SAT 97
[2018-09-18 18:48] VITALS: BP 118/55
== END 2018-09-18 16:41 | DRG 240 ==
LOC: NEPE 11:40 → NEDA 16:22 → N07 18:27
PROVIDERS: ADMIT Hospitalist; ATTEND Hospitalist
DX: Z79.82 Long term (current) use of aspirin; F03.90 Unspecified dementia, unspecified severity, without behavioral disturbance, psychotic disturbance, mood disturbance, and anxiety; E11.52 Type 2 diabetes mellitus with diabetic peripheral angiopathy with gangrene; Z79.02 Long term (current) use of antithrombotics/antiplatelets; Z88.5 Allergy status to narcotic agent; I70.0 Atherosclerosis of aorta; L97.919 Non-pressure chronic ulcer of unspecified part of right lower leg with unspecified severity; Z82.49 Family history of ischemic heart disease and other diseases of the circulatory system; Z66 Do not resuscitate; I25.10 Atherosclerotic heart disease of native coronary artery without angina pectoris; Z90.49 Acquired absence of other specified parts of digestive tract; I13.0 Hypertensive heart and chronic kidney disease with heart failure and stage 1 through stage 4 chronic kidney disease, or unspecified chronic kidney disease; I25.2 Old myocardial infarction; F05 Delirium due to known physiological condition; I50.9 Heart failure, unspecified; F17.210 Nicotine dependence, cigarettes, uncomplicated; I25.5 Ischemic cardiomyopathy; I70.8 Atherosclerosis of other arteries; J44.9 Chronic obstructive pulmonary disease, unspecified; N18.2 Chronic kidney disease, stage 2 (mild); E11.22 Type 2 diabetes mellitus with diabetic chronic kidney disease; E78.5 Hyperlipidemia, unspecified; E11.622 Type 2 diabetes mellitus with other skin ulcer; E11.42 Type 2 diabetes mellitus with diabetic polyneuropathy; F32.9 Major depressive disorder, single episode, unspecified; L97.229 Non-pressure chronic ulcer of left calf with unspecified severity; Z79.899 Other long term (current) drug therapy; L89.153 Pressure ulcer of sacral region, stage 3; G14 Postpolio syndrome; Z79.4 Long term (current) use of insulin; L03.116 Cellulitis of left lower limb; M51.36 Other intervertebral disc degeneration, lumbar region
CPT/HCPCS: 70450; 71010; 71045; 71250; 74000; 74018; 75635; 76937; 80048; 80053; 80076; 80202; 81001; 82140; 82607; 82746; 82948; 82962; 83605; 83735; 84439; 84443; 85025; 86403; 86592; 86850; 86900; 86901; 87040; 87070; 87086; 87147; 87186; 87205; 87493; 88307; 88311; 90765; 90775; 92526; 92610; 93005; 93922; 94640; 94664; 94665; 94667; 96365; 96375; 97110; 97161; 97530; 99285; G0195; J0690; J1170; J1644; J1650; J1815; J2250; J2370; J2405; J2543; J2700; J2704; J2710; J2720; J3010; J3370; J3475; J3480; J7030; J7040; J7050; J7120; Q4145; Q9967